=== PATIENT | male | born 1985 | race Caucasian/White ===

== ENCOUNTER 2016-05-02 09:58 | Inpatient (IN) | payer MEDICARE, MEDICAID ==
[2016-05-02 12:25] LABS: Albumin 3.5 g/dL (3.2-5.2); BUN/Creatinine Ratio 5.5 (8-20); Calcium 9.3 mg/dL (8.6-10.3); EGFR African American 7.5 (>60); EGFR Non-African American 5.8 (>60); Globulin 3.4 g/dL (2-4); Potassium 4.7 mmol/L (3.5-5.0); Total Bilirubin 0.4 mg/dL (0.2-1.0); Total Protein 6.9 g/dL (6.4-8.9)
[2016-05-02] MEDS ORDERED: fentaNYL* 50 MCG/ML 2 ML VIAL (100 MCG VIAL) IV SLOW PU ONE (12:25)
[2016-05-02] MEDS ORDERED: Dexamethasone IV* 10 MG in NS 0.9% 50 ML* 50 ML IVPB ONE (12:26)
[2016-05-02] MEDS ORDERED: Aspirin TAB* 325 MG PO ONE (12:26)
[2016-05-02 12:28] LABS: Troponin I 0.02 ng/mL (<0.04)
[2016-05-02 12:43] LABS: C Reactive Protein 83.25 mg/L (< 5.00)
[2016-05-02] MEDS ORDERED: Pantoprazole IV* 40 MG IV ONE (12:47)
[2016-05-02] MEDS ORDERED: Misoprostol TAB* 100 MCG PO ONE (12:49)
[2016-05-02 12:55] LABS: Hematocrit 29 % (42-52); Hemoglobin 9.5 g/dl (14.0-18.0); Mean Corpuscular HGB Conc 33 g/dl (31-36); Mean Corpuscular Hemoglobin 37 pg (27-31); Mean Platelet Volume 8 um3 (7.4-10.4); Red Blood Count 2.59 10^6/ul (4.0-5.4); Red Cell Distribution Width 19 % (10.5-15); White Blood Count 13.2 10^3/ul (3.5-10.8)
[2016-05-02 12:56] LABS: Mean Corpuscular Volume 111 fL (80-94)
[2016-05-02 12:58] LABS: Add Diff/Slide Review? Slide Review Added
--- NOTE | 2016-05-02 12:58 | RAD ---
INDICATION: Difficulty breathing COMPARISON: None. TECHNIQUE: Single AP portable view of the chest was obtained. FINDINGS: Image quality is compromised due to the relative inferiority of a portable chest x-ray. There is density of securing the left lower lung and left hemidiaphragm. There is probable mild cardiomegaly, although evaluation of the heart is limited due to the density at the left lung base. The right lung and left upper lung appear to be otherwise adequately aerated. Visualized bones are normal for the patient's age. IMPRESSION: Density at the left lung base could represent pleural effusion and/or left lower lobe consolidation.
[2016-05-02] MEDS: Colchicine* 0.6 MG TAB PO SCH ×2 (13:15→20:23)
[2016-05-02] MEDS ORDERED: HYDROmorphone INJ* 1 MG/ML CARPUJECT SYRINGE IV SLOW PU PRN (13:18)
[2016-05-02] MEDS ORDERED: Albuterol 2.5 MG/3 ML NEB.SOL* (0.083%) INH PRN (13:18)
[2016-05-02] MEDS ORDERED: Acetaminophen TAB* 325 MG PO PRN (13:18)
[2016-05-02] MEDS ORDERED: Morphine INJ* 10 MG/ML 1 ML CARPUJECT IV ONE (13:35)
[2016-05-02] MEDS ORDERED: Nicotine GUM* 2 MG PO PRN (13:36)
[2016-05-02 13:39] LABS: Erythrocyte Sed Rate 85 mm/Hr (0-14)
[2016-05-02] MEDS ORDERED: Sevelamer TAB* 800 MG PO SCH (14:00)
[2016-05-02 14:05] LABS: Phosphorus 5.8 mg/dL (2.5-5.0)
[2016-05-02] MEDS: Sevelamer TAB* 800 MG PO SCH ×2 (15:47→17:13)
[2016-05-02] MEDS: Dexamethasone TAB* 4 MG PO SCH ×2 (15:48→20:23)
--- NOTE | 2016-05-02 17:14 | CONSULT ---
Consult Consult: Reason for consultation: Lupus, recurrent pleurisy In terms of acute management, Mr. Puri seems to be feeling better and responding to Dexamathasone. If there is no improvement or worsening, consider switching to IV Solumedrol 1mg /kg/d Left lung density: would follow; consider non contrast CT for evaluation if he remains symptomatic. Echo and ECG results noted. He will need a gradual taper of Dexamethasone over the next 2 weeks (he is not tolerant of Prednisone) For correction management: consider switching Cellcept to Plaquenil. This may be the preferred immunomodulating agent in the setting of his dialysis, and may be preferable in terms of side effects as it is not as immunosuppressive as Cellcept (he does seem to have had several upper respiratory infections) I would be interested in reviewing old records. Check complements and DSDNA. Will follow; thanks!
[2016-05-02] MEDS: Metoprolol Tartrate TAB* 100 MG TAB PO SCH (20:22)
[2016-05-02] MEDS ORDERED: Metoprolol Tartrate TAB* 100 MG TAB PO SCH (21:00)
--- NOTE | 2016-05-02 21:30 | ED ---
Natali Ibrahim Claudia, scribed for Rashard Pemberton MD on 05/02/16 at 1206 . Complex/Multi-Sys Presentation - HPI Summary HPI Summary: 31 year old male presents to the ED with SOB. Pt notes the CP and SOB began yesterday am but worsened last night. Pt notes this is the third episode of similar Sx this month. He notes associated Sx as shoulder and neck pain with fever and chills. Pt notes aggravated pain with deep breaths with some alleviation of Sx when he leans forward. Pt denies N/V/D, and cough.Pt reports he went to [facility] twice this past month and for similar Sx where they reported it was due to fluid around the heart. They treated his Sx with steroids which seem to somewhat alleviate his Sx. However, the pt notes that he is unable to take pretnisone and was unable to take the Rx given to him and therefore had to take small dosages of steroids he had from a previous visit, thereby bringing on the Sx again. Pt notes that these Sx resemble the same Sx he had when seen at [facility] in [place]. Pt denies any PMHx of Cardiac Disease but admits to a PMHx of renal disease (since June 2012), and lupus. Dr. adair- tableau administrator - History Of Current Complaint Chief Complaint: EDShortnessOfBreath Time Seen by Provider: 05/02/16 12:01 Hx Obtained From: Patient Associated Signs And Symptoms: Positive: SOB, Chest Pain, Fever - Allergies/Home Medications Allergies/Adverse Reactions: Allergies Allergy/AdvReac Type Severity Reaction Status Date / Time Hydralazine Allergy Shortness Verified 05/02/16 10:00 of Breath Prednisone Allergy Hallucinati Verified 05/02/16 10:01 ons Home Medications: Home Medications Albuterol 2.5MG/3ML (0.083%)* [Ventolin 2.5 MG/3 ML NEB.KASHIF*] 2.5 mg INH Q6H PRN 05/02/16 [History Confirmed 05/02/16] Cholecalciferol TAB* [Vitamin D TAB*] 5,000 units PO DAILY 05/02/16 [History Confirmed 05/02/16] Citalopram TAB* [CeleXA TAB*] 40 mg PO DAILY 05/02/16 [History Confirmed ] Cyanocobalamin TAB* [Vitamin B12 TAB*] 500 mcg PO DAILY 05/02/16 [History Confirmed 05/02/16] Fluticasone NASAL SPRAY 50MCG* [Flonase NASAL SPRAY 50MCG*] 50 mcg BOTH NARES DAILY 05/02/16 [History Confirmed 05/02/16] Lansoprazole [Prevacid] 30 mg PO DAILY 05/02/16 [History Confirmed 05/02/16] Metoprolol Tartrate TAB* [Lopressor TAB*] 100 mg PO BID 05/02/16 [History Confirmed 05/02/16] Mycophenolate Mofetil CAP(*) [Cellcept CAP(*)] 1,000 mg PO DAILY 05/02/16 [ History Confirmed 05/02/16] amLODIPine TAB* [Norvasc TAB*] 5 mg PO DAILY 05/02/16 [History Confirmed ] PMH/Surg Hx/FS Hx/Imm Hx Previously Healthy: Yes Infectious Disease History: No Infectious Disease History: Denies: Traveled Outside the [place] in Last 30 Days - Family History Known Family History: Positive: Hypertension, Diabetes - Social History Lives: With Family Alcohol Use: None Substance Use Type: Reports: None Smoking Status (MU): Unknown if Ever Smoked Review of Systems Positive: Fever, Chills Eyes: Negative ENT: Negative Positive: Chest Pain Positive: Shortness Of Breath Gastrointestinal: Negative Genitourinary: Negative Positive: Other - bilateral shoulder pain and neck pain Skin: Negative Neurological: Negative Psychological: Normal All Other Systems Reviewed And Are Negative: Yes Physical Exam Triage Information Reviewed: Yes Vital Signs On Initial Exam: Initial Vitals Temp Pulse Resp BP Pulse Ox 100.4 F 88 16 128/73 100 05/02/16 10:05/02/16 10:05/02/16 10:05/02/16 10:05/02/16 10:01 Vital Signs Reviewed: Yes Appearance: Positive: Well-Appearing - comfortable, plesant, alert Eyes: Positive: EOMI, ZACHARY ENT: Positive: Other - moist mucosa Neck: Positive: Supple, Other: - no JVD Respiratory/Lung Sounds: Positive: Clear to Auscultation, Breath Sounds Present , Other - breath sounds dimished on the left, no rales or rhonchi on the right. Negative: Rales, Wheezes Cardiovascular: Positive: RRR, S1, S2. Negative: Murmur, Rub Abdomen Description: Positive: Nontender, Soft Musculoskeletal: Positive: Other - calf soft, no calf tenderness. Negative: Edema Left, Edema Right Neurological: Positive: Alert, Oriented to Person Place, Time Psychiatric: Positive: Other - logic, coherent - [place] Coma Scale Coma Scale Total: 15 Procedures - Procedure Summary Procedure Summary: Bedside Echocardiogram: Displays E point to septal separation with mitral valve essentially coapting the septum which suggests good EF. There is concentric thickening of the LV. No significant RV dilation. A pericardial effusion is seen. With diastole there is no septal movement blocking the outflow track. Tamponade is not suggested. Diagnostics - Vital Signs Vital Signs Temp Pulse Resp BP Pulse Ox 05/02/16 11:31 82 16 118/82 97 05/02/16 10:01 100.4 F 88 16 128/73 100 - Laboratory Lab Results: Lab Results 05/02/16 05/02/16 05/02/16 Range/Units 11:14 11:14 11:14 WBC 13.2 H (3.5-10.8) 10^3/ul RBC 2.59 L (4.0-5.4) 10^6/ul Hgb 9.5 L (14.0-18.0) g/dl Hct 29 L (42-52) % MCV 111 H (80-94) fL MCH 37 H (27-31) pg MCHC 33 (31-36) g/dl RDW 19 H (10.5-15) % Plt Count 608 H (150-450) 10^3/ul MPV 8 (7.4-10.4) um3 Neut % (Auto) 75.8 (38-83) % Lymph % (Auto) 11.2 L (25-47) % Motley % (Auto) 10.3 H (1-9) % Eos % (Auto) 2.1 (0-6) % Baso % (Auto) 0.6 (0-2) % Absolute Neuts (auto) 10.0 H (1.5-7.7) 10^3/ul Absolute Lymphs (auto) 1.5 (1.0-4.8) 10^3/ul Absolute Monos (auto) 1.4 H (0-0.8) 10^3/ul Absolute Eos (auto) 0.3 (0-0.6) 10^3/ul Absolute Basos (auto) 0.1 (0-0.2) 10^3/ul Absolute Nucleated RBC 0.02 10^3/ul Nucleated RBC % 0.1 ESR 85 H (0-14) mm/Hr INR (Anticoag Therapy) 1.06 (0.89-1.11) Sodium 132 L (133-145) mmol/L Potassium 4.7 (3.5-5.0) mmol/L Chloride 91 L (101-111) mmol/L Carbon Dioxide 30 (22-32) mmol/L Anion Gap 11 (2-11) mmol/L BUN 57 H (6-24) mg/dL Creatinine 10.28 H (0.67-1.17) mg/dL Est GFR ( Amer) 7.5 (>60) Est GFR (Non-Af Amer) 5.8 (>60) BUN/Creatinine Ratio 5.5 L (8-20) Glucose 103 H (70-100) mg/dL Lactic Acid (0.5-2.0) mmol/L Calcium 9.3 (8.6-10.3) mg/dL Phosphorus 5.8 H (2.5-5.0) mg/dL Total Bilirubin 0.40 (0.2-1.0) mg/dL AST 9 L (13-39) U/L ALT 7 (7-52) U/L Alkaline Phosphatase 44 (34-104) U/L Troponin I 0.02 (<0.04) ng/mL C-Reactive Protein 83.25 H (< 5.00) mg/L B-Natriuretic Peptide ( - 100) pg/mL Total Protein 6.9 (6.4-8.9) g/dL Albumin 3.5 (3.2-5.2) g/dL Globulin 3.4 (2-4) g/dL Albumin/Globulin Ratio 1.0 (1-3) 05/02/16 05/02/16 Range/Units 11:14 11:14 WBC (3.5-10.8) 10^3/ul RBC (4.0-5.4) 10^6/ul Hgb (14.0-18.0) g/dl Hct (42-52) % MCV (80-94) fL MCH (27-31) pg MCHC (31-36) g/dl RDW (10.5-15) % Plt Count (150-450) 10^3/ul MPV (7.4-10.4) um3 Neut % (Auto) (38-83) % Lymph % (Auto) (25-47) % Motley % (Auto) (1-9) % Eos % (Auto) (0-6) % Baso % (Auto) (0-2) % Absolute Neuts (auto) (1.5-7.7) 10^3/ul Absolute Lymphs (auto) (1.0-4.8) 10^3/ul Absolute Monos (auto) (0-0.8) 10^3/ul Absolute Eos (auto) (0-0.6) 10^3/ul Absolute Basos (auto) (0-0.2) 10^3/ul Absolute Nucleated RBC 10^3/ul Nucleated RBC % ESR (0-14) mm/Hr INR (Anticoag Therapy) (0.89-1.11) Sodium (133-145) mmol/L Potassium (3.5-5.0) mmol/L Chloride (101-111) mmol/L Carbon Dioxide (22-32) mmol/L Anion Gap (2-11) mmol/L BUN (6-24) mg/dL Creatinine (0.67-1.17) mg/dL Est GFR ( Amer) (>60) Est GFR (Non-Af Amer) (>60) BUN/Creatinine Ratio (8-20) Glucose (70-100) mg/dL Lactic Acid 1.0 (0.5-2.0) mmol/L Calcium (8.6-10.3) mg/dL Phosphorus (2.5-5.0) mg/dL Total Bilirubin (0.2-1.0) mg/dL AST (13-39) U/L ALT (7-52) U/L Alkaline Phosphatase (34-104) U/L Troponin I (<0.04) ng/mL C-Reactive Protein (< 5.00) mg/L B-Natriuretic Peptide 340 H ( - 100) pg/mL Total Protein (6.4-8.9) g/dL Albumin (3.2-5.2) g/dL Globulin (2-4) g/dL Albumin/Globulin Ratio (1-3) Result Diagrams: 05/02/16 11:14 05/02/16 11:14 Lab Statement: Any lab studies that have been ordered have been reviewed, and results considered in the medical decision making process. - Radiology CHEST XRAY Xray Interpretation: Positive (See Comments) - DENSITY AT THE LEFT LUNG BASE COULD REPRESENT PLEURAL EFFUSION AND/OR LEFT LOVER LOBE CONSOLIDATION. Radiology Interpretation Completed By: Radiologist - EKG 10:44 Cardiac Rate: NL EKG Rhythm: Sinus Rhythm - 85 beats/min Complex Multi-Symp Course/Dx Assessment/Plan: This is his third episode of pericarditis this time he has pericardial effusion and pleural effusion and fever and no evidence of tamponade or severe distress. He will be admitted; the hospitalist, Dr. Arango and Dr. Adair all on board. - Diagnoses Provider Diagnoses: PERICARDITIS, Pericardial effusion, Pleural effusion - Physician Notifications Discussed Care Of Patient With: Dsicussed care of patient with Dr. Arango whom will consult with the patient and agrees for hospitalist admit to [facility]. He also advises the pt to begin coltrazine. Dr. Arango agrres with thr pain for aspirin and steriods. Discussed care of patient with Dr. Adair(12:44) whom recommends starting the patient on GI protect, protonis and cytotech. Dr. Storey accepts patient for admission to [facility]. Time Discussed With Above Provider: 12:30 Discharge - Discharge Plan Condition: Stable Disposition: ADMITTED TO [facility] The documentation as recorded by the Natali mcmillan Claudia accurately reflects the service I personally performed and the decisions made by , Rashard Pemberton MD.
--- NOTE | 2016-05-02 23:37 | CONS ---
CARDIOLOGY CONSULTATION: DATE OF CONSULT: 05/02/16 REASON FOR CONSULTATION: Pericardial effusion. CHIEF COMPLAINT: Pleuritic chest pain and orthopnea. HISTORY OF PRESENT ILLNESS: The patient is a 31-year-old gentleman who has recently moved to the [facility] with a longstanding history of lupus. The exam was performed in the presence of his sister and [id number] and the sister provided the bulk of the history. The patient's old medical records from outside institutions were not available to me at the time of this dictation. The patient has not been able to afford his medications for lupus. He has had bronchitis symptoms approximately 4 or 5 weeks ago and subsequently developed pleuritic chest pain that was relieved only if he sat way forward with his arms in front of him such as on a table. He was seen in the [place] ER, given steroids with relief. When these tapered off and the pain recurred, he was seen again, given prednisone, which he does not tolerate (psychosis), it turns out he has leftover steroids from the prior visit (this raises concerns about compliance). finished those but his symptoms recurred and he presented to the emergency room today. The patient also notes he feels feverish. He denies headaches, coughing, or productive sputum, earaches. He denies diarrhea, constipation, or dysuria. He does not think he is infected anywhere else. PAST MEDICAL HISTORY: The patient has a past medical history of lupus and pleural pericarditis from [place] and renal insufficiency. OUTPATIENT MEDICATIONS: Include: 1. Norvasc 10 mg a day. 2. Metoprolol 200 mg a day. 3. Celexa 20 mg a day. 4. Prevacid 30 mg a day. 5. Vitamin D. 6. Vitamin B12. 7. Flonase 50 mg a day. 8. Albuterol inhaler. 9. CellCept 1000 a day. 10. Renvela (not taking). ALLERGIES: He is allergic or intolerant to PREDNISONE and HYDRALAZINE. FAMILY HISTORY: Father and mother history of diabetes. SOCIAL HISTORY: The patient smokes about a pack a week. Denies alcohol abuse. Supportive sister in the [place] area. He is on Medicare, but has no prescription coverage which has led to medication noncompliance. REVIEW OF SYSTEMS: See history of present illness. All other review of systems unremarkable. PHYSICAL EXAM: On exam, the patient is an ill-appearing young man. He is lying about 45 degrees, appears uncomfortable and skin color suggests chronic illness, psychologically pleasant, cooperative, but answers in brief sentences or words. Neurologically awake, alert and oriented to person, place and time. Cranial nerves II through XII intact. Grossly normal sensory and motor function in the upper and lower extremities based on exam in the ER [facility]. Skin: Pale. Complexion is off, but no cyanosis. HEENT: Pupils are equal and round. Mucous membranes are moist. Neck without appreciable increased JVP. Breath sounds were diminished in the bases bilaterally and throughout the lung diaz. No wheezing or rales appreciated. Coronary: Distant heart sounds. S1 , S2 regular. I did not hear a rub. Abdomen: Active bowel sounds. Soft and nontender. Lower extremities are free of edema and warmth. DIAGNOSTIC STUDIES/LAB DATA: The patient's chest x-ray shows cardiomegaly and the left lower lobe is obscured suggestive of a left pleural effusion. The patient's 12-lead ECG today shows normal sinus rhythm, 85 beats a minute. QRS axis +30. Normal AV and IV conduction. Somewhat flattened T-waves in the lateral leads I, aVL and V6. No significant ST elevation or depression appreciated. Bedside echo done by the ER physician per verbal report showed pleural and pericardial effusions, but no evidence of tamponade. Labs: Sodium 132, potassium 4.7, chloride 91, CO2 30, BUN 57, creatinine 10.28 , glucose 103. ALT of 7. Troponin 0.02. C-reactive protein 83.25. BNP of 340. White count 13.2, hemoglobin 9.5, hematocrit 29, platelets 608. ESR pending. INR 1.06. IMPRESSION: In summary, Jose Enrique Puri is a 31-year-old gentleman with a longstanding history of lupus with secondary renal insufficiency presenting with pleuritic and positional chest pain secondary to pleural pericarditis. The pleural pericarditis could be secondary to lupus alone, but more likely a combination of the two. Jose Enrique has not been tried on nonsteroidals due to his renal insufficiency, but had responded to glucocorticoid with rebound coming off. I recommend resuming glucocorticoids, but adding colchicine with a very slow taper of both. I am leaving the colchicine on several weeks longer than the steroids. Additionally, it looks like due to the financial issues, he has not been compliant with his lupus medications and being as aggressive as possible with medication for lupus in addition to glucocorticoids will be important in getting a durable control and resolution of the pleural pericardial effusions. The Hospitalists have already contacted public health social worker and partner integration planner which are going to be important for compliance. An echocardiogram has been ordered and we will review and Rheumatology consultation has been ordered which I agree with. The patient's renal insufficiency could additionally have a contribution, additional recommendations will be made pending his response to the above measures and additional studies. I will leave it to Internal Medicine and Rheumatology to decide if there is any potential benefit in tapping along for diagnostic and/or therapeutic benefit. [id number]/CPS #: [id number] DARRELL
--- NOTE | 2016-05-03 00:18 | HP ---
HISTORY AND PHYSICAL: DATE OF ADMISSION: 05/02/16 PRIMARY CARE PROVIDER: None. ATTENDING PHYSICIAN WHILE IN THE HOSPITAL: Leo Storey MD *(report dictated by Dallas Carlin NP). CHIEF COMPLAINT: 1. Neck pain. 2. Chest pain. 3. Dyspnea on exertion. CONSULTING CREDIT CONTROL ADMINISTRATOR: Dr. Arango. CONSULTING SIDE FRAMER: Dr. Flores. CONSULTING TIMBER FRAMER: Dr. Baugh. HISTORY OF PRESENT ILLNESS: Mr. Puri is a 31-year-old male patient. He has a history of lupus, kidney cancer, status post nephrectomy, end-stage renal disease, and history of recurrent pericarditis and hypertension. He comes in today stating that the middle of March, he developed URI type symptoms. He was having runny nose, cough. He was bringing up some sputum. He was diagnosed at [facility] with bronchitis and admitted. He recovered from this; but in the beginning of April, he started noticing that he was having dyspnea on exertion, chest discomfort, worse with a deep breath. He was having pain in both of his shoulders. He went back to the ER at [facility] and was treated for presumed pericarditis. The patient was started on steroids. He was doing initially well. When the steroids finished, the patient became worse again. He started having recurrence of symptoms. He went back to [facility], was admitted, put on steroids, again got better, was discharged on 04/23/16. He had some leftover steroids from a previous episode. He says the steroid started with a D and he was taking that because he was discharged home on prednisone which he says makes him feel suicidal and psychotic, so he did not take that. He took presumably dexamethasone, was better up to 3 days ago when the steroids that ran out, he started having discomfort again mostly in both his shoulders area and the neck, worse with deep breath. It was positional. He says the pain was a sharp stabbing pain. It just was not getting any better , so he decided to come to the [facility] today for evaluation. PAST MEDICAL HISTORY: Significant for: 1. Lupus. 2. Renal carcinoma. 3. End-stage renal disease, on dialysis. 4. Pericarditis. 5. Hypertension. PAST SURGICAL HISTORY: 1. He has had a nephrectomy. 2. Hernia repair. 3. Splenectomy. 4. Fistula placement. HOME MEDICATIONS: According the patient's phone include: 1. Mycophenolate 1000 mg daily. 2. Norvasc 10 mg daily, but he has recently reduced this down to 5 mg a day. 3. Metoprolol, he takes 200 mg p.o. daily. 4. Celexa 40 mg p.o. daily. 5. Prilosec 30 mg daily. 6. Vitamin D3 5000 units daily. 7. Vitamin B12 500 mcg daily. 8. Flonase 50 mcg 1 spray both nares daily. 9. Albuterol 1 nebulizer every 4 to 6 hours as needed. 10. Renvela 800 mg t.i.d. with meals, although he says he has not been taking this medication. ALLERGIES TO MEDICATIONS: Include: 1. HYDRALAZINE. 2. PREDNISONE, which causes psychosis with suicidal ideation. FAMILY HISTORY: Both his parents were diabetics. SOCIAL HISTORY: He does smoke a pack of cigarettes a week. He has been smoking since the age of 13. He says last drink of alcohol was about a month ago and he does not have a healthcare proxy currently. REVIEW OF SYSTEMS: There is no documented fever. He does admit to having chills. Denies any significant weight change. There was no double vision. There is no ear discharge. He denies any rhinorrhea. He currently denies any sore throat. There is chest pain per my HPI. There was dyspnea on exertion, but no orthopnea. No nocturnal dyspnea. There is no abdominal pain. No nausea , no vomiting. No dysuria, no frequency. No loss of consciousness, no pruritus , no skin ulcerations. Review of 14 systems completed, all others negative. PHYSICAL EXAMINATION GENERAL: Mr. Puri is a 31-year-old male patient. He appears to be chronically ill-appearing. He is sitting in the ER stretcher. He does not appear to be in any acute distress. VITAL SIGNS: Blood pressure 109/62 with a pulse of 82, respirations 16, O2 sat 99%, temperature was 100.4 temporally. HEENT: Head: Atraumatic, normocephalic. Eyes: EOMs are intact. Sclerae anicteric and not pale. Throat: Oral mucosa appears to be moist. No oropharyngeal erythema. NECK: Supple. LUNGS: Diminished on the left side. He had equal diaphragmatic expansion. HEART: Sounds S1, S2. There was no rub heard. ABDOMEN: Soft, flat, nontender. Bowel sounds present. EXTREMITIES: Pulses were 2+ throughout. He has a fistula noted to the left upper extremity with positive thrill and bruit. He has 5/5 strength. NEUROLOGIC: The patient is awake, alert, and oriented x3. Tongue midline. Mill Order Scheduler were equal. No gross focal deficits. SKIN: Grossly intact. LABORATORY DATA AND DIAGNOSTIC STUDIES: Labs today revealed WBC of 13.2, RBC of 2.59, hemoglobin 9.5, hematocrit 29, platelet count of 608. INR 1.06. Sodium is 132, potassium 4.7, chloride 91, CO2 30, BUN 57, creatinine 10.28, glucose 103. Lactic 1.0. Calcium 9.3, total bilirubin 0.4, AST 9, ALT 7. Alkaline phosphatase 44. Troponin is 0.02. BNP of 340. Albumin of 3.5. He had a chest x-ray obtained today which when I reviewed, I do appreciate what appears to be a left-sided pleural effusion. Radiology reads this as density of the left lung base could represent pleural effusion and/or left lower lobe consolidation. He did have an EKG obtained today as well. No previous for comparison, but did show a sinus rhythm with a rate of 85. He had no ST elevations or T-wave inversion. There is no previous for comparison and appeared to be normal axis. Old medical records were reviewed. ASSESSMENT AND PLAN: Mr. Puri is a 31-year-old male patient who comes into the ER today with complaints of shoulder discomfort bilaterally, dyspnea on exertion, and positional chest pain. On evaluation here today, it appears he has a left-sided pleural effusion and recently diagnosed pericarditis and becoming worse now in the setting of being off steroids. He will be admitted under inpatient status for: 1. Pericarditis with left pleural effusion. I suspect this is probably reactive secondary to the bronchitis that he had about a month ago and initially lupus is also probably playing a role. Plan at this point he is hemodynamically stable, just to go ahead and start him on colchicine b.i.d., aspirin every day, full aspirin, in addition to this steroid. I did touch base with Dr. Baugh. The plan is to go ahead and try him on dexamethasone 4 mg p.o. t.i.d. I am trying to get records from [facility] to see what he was taking previously and we will try to replicate this again and give him a slow taper over several weeks with both the prednisone and the colchicine and get him in close followup with Dr. Baugh. We will get an echo and in addition to this, we will place him on telemetry and we will continue to monitor. 2. Leukocytosis with low-grade fever. Again, this could just be related to the lupus and the fact that he has this pericarditis. We are going to monitor him. He has been pancultured. I am holding antibiotics at this point as he is hemodynamically stable. If he does spike a fever of greater than 101, I would probably put him on broad-spectrum antibiotics. 3. Lupus. We will continue his CellCept and we will go ahead and get Dr. Baugh's input. 4. End-stage renal disease and history of renal carcinoma. I am going to go ahead and put him back on his Renvela. In addition to this, I will continue his medications prescribed and the dialysis as prescribed. 5. Lupus. Again, continue CellCept. Dr. Baugh will follow. 6. Hypertension. Continue his Norvasc and metoprolol with hold parameters. 7. DVT prophylaxis. He is moderate risk and will be placed on SCDs. 8. Fluid, electrolytes, and nutrition. He will get a renal diet. 9. Code status: He is a full code. 10. Social issues. The patient at this point is having trouble obtaining medications due to cost. He has no prescription covered. I did place a Social Work consult to help with acquire Medicaid for this patient. TIME SPENT: Time spent on the admission 60 minutes, greater than half the time was spent [id number] with the patient obtaining my history and physical, other half the time spent going over the plan of care with the patient and implementing plan of care. I did discuss the case with Dr. Storey, he is in agreement. DALLAS CARLIN NP CC: Dr. Flores; Dr. Arango; Dr. Baugh* [id number]/[facility] #: [id number] [facility]ITALAbiel
--- NOTE | 2016-05-03 02:05 | CONS ---
CONSULTATION REPORT: DATE OF CONSULT: 05/02/16 CONSULTING PHYSICIANS: Dr. Rashard Pemberton, Dr. Arango, Dr. Flores, Dr. Storey. REASON FOR CONSULT: Lupus flare. HISTORY OF PRESENT ILLNESS: The patient is a pleasant 31-year-old male who has a longstanding history of lupus. Prior records have been requested. So most of the following history was obtained primarily from the patient himself. He has had recurrent episodes of pleurisy, which has been attributed to his underlying lupus. In terms of his more recent symptoms, he had noted sharp onset of shortness of breath and chest pain which began the day prior to admission, but worsened overnight. He has had several episodes of these in the past and it does appear that he has also had episodes of bronchitis and upper respiratory infections over the last couple of months. He has been seeing Dr. Flores recently for end-stage renal disease as a complication of his lupus and he is on dialysis, which he has been on since at least 2013. Indeed, he started dialysis in June of 2012. Despite being on dialysis, he has continued on CellCept. In terms of his underlying longstanding lupus history, he actually did notice symptoms beginning back when he was around 8 years old. He had complications including hematologic abnormalities, which required a splenectomy. At one point of time, he was on both Naprosyn as well as Plaquenil in the very remote past, but it seems that his lupus was under control for several years and these medications were stopped. 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 Per history, he tried several course IV Cytoxan to preserve his kidneys but did not tolerate this well. He has tolerated dialysis well; however he has noted recently recurrent episodes of steroid responsive pleurisy; recently he noted discomfort in his chest and upper neck and shoulder muscles with taking deep breath with some alleviation when he leans forward. He denied any nausea or vomiting or diarrhea , although he has had some GI symptoms with CellCept in the past, and he has denied an acute cough or productive sputum. He has been to [facility] at least twice over the past month for similar symptoms and it appears that it was felt to be related to fluid around the heart or pericardial effusion. He was treated with Solu-Medrol which helped to alleviate his symptoms somewhat. In terms of his longstanding steroid use, however, he has not been able to tolerate prednisone from the psychiatric perspective as he has 2 suicide prior attempts on this medication. He, however, did have some leftover dexamethasone a couple of days ago which he had been given for symptoms of bronchitis. He tolerated this well, although it made him jittery. He has not, however, been on dexamethasone over the last couple of days. He notes that the symptoms were similar to prior symptoms of pleurisy that he has had in the past at [facility]. As noted above, he has a longstanding history of renal disease. His hotel security officer is Dr. Flores. PAST MEDICAL HISTORY: Include end-stage renal disease as well as a history of lupus. Past medical history is also notable for end-stage renal disease and hypertension as well as depression. PAST SURGICAL HISTORY: Dialysis graft placement. CURRENT MEDICATIONS: 1. He is on acetaminophen as needed. 2. Albuterol as needed. 3. Ventolin as needed. 4. Amlodipine. 5. Aspirin. 6. Citalopram 40 mg daily. 7. Colchicine 0.6 mg. 8. Dexamethasone 4 mg t.i.d. 9. Hydromorphone as needed. 10. Metoprolol 100 mg b.i.d. 11. Mycophenolate 1000 mg daily. 12. Nicotine gum. 13. He has been given morphine and fentanyl earlier for pain. ALLERGIES: Current allergies include HYDRALAZINE as well as PREDNISONE. FAMILY HISTORY: Notable for hypertension as well as diabetes. SOCIAL HISTORY: He does not smoke. Does not drink any alcohol. He has not been able to work on a regular basis because of his underlying symptoms of lupus as well as complications of end-stage renal disease requiring dialysis. He has had a transfer several times because of these underlying issues as well. He has not seen a business assistant in the recent past and does not recall the name of his prior business assistant. No substance abuse. He lives with a supportive family. No alcohol use. REVIEW OF SYSTEMS: Generally, notable for subjective fever and chills. Eyes: Negative for dry eyes or dry mouth. ENT: Negative for sores in the mouth and nose. Cardiac: Notable for chest wall pain, not reproducible, worse with taking a deep breath and inhalation as noted above. Pulmonary: As noted above. No productive sputum. Musculoskeletal: He does have chronic arthralgias, but no definite joint swelling. He notes that when tries to do yoga at times, he has discomfort in the left lower extremity including the hips and knees. More recently with the onset of the pleurisy, he has had bilateral shoulder and neck pain. Skin is negative for rash. Neurologic: Negative for any focal weakness. He does have mild numbness and tingling around the dialysis graft site. Psychological: Denies suicidal ideations or depression. He has had some jitteriness a little bit with taking dexamethasone in the past, but otherwise has tolerated it well and he notes that it has helped his symptoms. He noted that "My overall outlook on life is very good but when I am on Prednisone that goes out the window." Endocrine: No glandular swelling. Hematologic: As noted above. : No blood in the urine or stool. Other 14- point review of systems was reviewed and was otherwise negative. Immunologic history as noted, he has not had any travel outside the [place] in the last 30 days. PHYSICAL EXAM: Vital Signs: Temperature in the ER was 100.4, pulse of 88, respiratory rate of 16 to 17, blood pressure 128/73, pulse ox 100%, now 97%. In general, he is pleasant, lying supine during the interview, but was able to easily sit up and follow commands, and he was otherwise alert. He was in no acute distress. Eyes: Extraocular movements were intact. Pupils equal, round , and reactive to light and accommodate. Skin: Notable for graft site on the left side in his upper extremity, which appeared to be in place with no surrounding erythema. ENT: Moist mucous membranes. No ulcers. Neck: Supple. Vascular: No JVD distention. Respiratory: Clear to auscultation. Bilateral breath sounds equal, but slightly diminished on the left, but no rales or rhonchi on the right. No wheezes. Cardiovascular: Notable for a 2/6 systolic murmur at the right lower border radiating to the left lower border. I did not appreciate any rub. No evidence of pulsus paradoxus. Normal S1 and S2. Abdomen: Soft, nontender, nondistended. No organomegaly. No hepatosplenomegaly. Musculoskeletal: There is no synovitis. There is no warmth of the joints. There is no tenderness. There is no edema. Neurologic: Alert and oriented to person, place, and time. No focal weakness. Psychiatric: Logical, coherent, no acute distress. Endocrine: No glandular swelling. : No CVA tenderness. Lymph: No adenopathy. DIAGNOSTIC STUDIES/LAB DATA: He had a bedside echo showing septal separation with mitral valve and ejection fraction with concentric thickening of the LV systolically, no significant RV dilatation, pericardial effusion is heard with diastole if there is no septal movement suggesting a barking of the outflow tract. He had a white count of 13.2, hemoglobin of 9.5, platelet count of 608, 000. BUN 57, creatinine 10.28. Otherwise, he had a chest x-ray showing a density at the left lung base, which could represent a pleural effusion and/or left lower lobe consolidation. ASSESSMENT: Mr. Puri is a 31-year-old man with a longstanding history of lupus complicated by end-stage renal disease with recurrent episodes of pleurisy , now with the chest x-ray showing a density in the left lower lung base. At this point in time, he certainly has symptoms which would be consistent with pleurisy/ serositis from longstanding lupus which can occasionally remain active even after dialysis. To evaluate further, I would check complements as he does have anemia and leukocytosis. I would also check a double-stranded DNA and follow his inflammatory markers, although his sed rate could be also elevated for many other reasons including dialysis. In terms of his underlying acute flare of lupus, he is currently on dexamethasone and he states that he has been feeling better since this morning. However, if he has worsening symptoms, potentially pleurisy from lupus could also be treated with Solu- Medrol which he has also received in the past. However, he appears to be clinically overall improving on dexamethasone alone. If he does continue to tolerate this (Dexamathasone) and there is clinical improvement, consider tapering dexamethasone down to 4 mg daily over the next 1 to 2 weeks; consider remaining on baseline low dose steroid regimen in light of recurrent symptoms. In terms of long- term management of his lupus, I would consider switching the CellCept to Plaquenil. He seems to have had increasing infections with bronchitis and upper respiratory infections over the last year. It is possible the Plaquenil may do even a better job in the setting of dialysis for controlling his underlying lupus without the potential immunosuppressive side effects. He should of course continue dialysis. Advised against any kind of active or passive smoke exposure. In terms of the density of the left lung, would follow up for clinical improvement, consider a noncontrast CT to evaluate it further especially if he remains symptomatic, would also be interested in reviewing prior records which I understand have been requested. It does not appear that he has seen a business assistant in the recent past. In light of his underlying longstanding use of CellCept, which increases the risks for viral infection, I will also check a CMV titer. TIME SPENT: Time spent with the patient was greater than 65 minutes with greater than 50% of the time spent counseling the patient. [id number]/[facility] #: [id number] DARRELL
[2016-05-03 05:21] LABS: Hematocrit 28 % (42-52); Hemoglobin 9.2 g/dl (14.0-18.0); Mean Corpuscular HGB Conc 33 g/dl (31-36); Mean Corpuscular Hemoglobin 37 pg (27-31); Mean Platelet Volume 8 um3 (7.4-10.4); Red Blood Count 2.47 10^6/ul (4.0-5.4); Red Cell Distribution Width 19 % (10.5-15); White Blood Count 19.8 10^3/ul (3.5-10.8)
[2016-05-03 05:25] LABS: Comments Flag Yes; Mean Corpuscular Volume 112 fL (80-94)
[2016-05-03 05:28] LABS: BUN/Creatinine Ratio 6.2 (8-20); C Reactive Protein 129.22 mg/L (< 5.00); Calcium 9.2 mg/dL (8.6-10.3); EGFR African American 6.3 (>60); EGFR Non-African American 4.9 (>60)
[2016-05-03] MEDS: Metoprolol Tartrate TAB* 100 MG TAB PO SCH ×2 (08:57→20:39)
[2016-05-03] MEDS: Sevelamer TAB* 800 MG PO SCH ×3 (08:57→17:33)
[2016-05-03] MEDS: Citalopram TAB* 40 MG PO SCH (08:58)
[2016-05-03] MEDS: Aspirin EC TAB* 325 MG PO SCH (08:58)
[2016-05-03] MEDS: amLODIPine TAB* 5 MG PO SCH (08:58)
[2016-05-03] MEDS: Dexamethasone TAB* 4 MG PO SCH ×2 (08:58→20:41)
[2016-05-03] MEDS: Colchicine* 0.6 MG TAB PO SCH ×3 (08:59→20:39)
[2016-05-03] MEDS: Mycophenolate Mofetil CAP(*) 250 MG PO SCH (09:00)
[2016-05-03] MEDS ORDERED: amLODIPine TAB* 5 MG PO SCH (09:00)
--- NOTE | 2016-05-03 09:57 | ECHO ---
Patient: ANGIE KAPOOR [facility] Rec#: [id number] : 1985 Date: 05/03/2016 Age: 31y Height: 172.72 cm / 68.0 in Weight: 77.56 kg / 170.9 lbs Sex: M BSA: 1.91 Room#: 452 Admit Date#: 05/02/2016 Type: Inpatient Referring: Rashard Pemberton MD Reading: Gricelda Arango MD [employer] Room Attendant: Nolvia Martin BETZY CC: Charanjit Pacheco MD CC: Charanjit Flores MD Transthoracic Echocardiogram Indication: Pericardial Effusion BP: 135/60 HR: 70 Rhythm: NSR Findings History: Lupus,kidney cancer,hemodialysis,smoker. Technical Comments: The study quality is good. Completed at 0817. Left Ventricle: The left ventricular chamber size is normal. Moderate to severe concentric left ventricular hypertrophy is observed. Global left ventricular wall motion and contractility are within normal limits. There is normal left ventricular systolic function. The estimated ejection fraction is 55-60%. Normal left ventricular diastolic filling is observed. Left Atrium: The left atrium is mildly dilated. Right Ventricle: The right ventricular cavity size is normal. The right ventricular global systolic function is normal. Right Atrium: The right atrium is mildly dilated. Aortic Valve: The aortic valve is trileaflet. Mild aortic cusp sclerosis is present. There is no evidence of aortic regurgitation. There is no evidence of aortic stenosis. Mitral Valve: The mitral valve leaflets are mildly thickened. There is mild mitral regurgitation. There is no evidence of mitral stenosis. Tricuspid Valve: The tricuspid valve leaflets are normal. There is trace tricuspid regurgitation. Unable to estimate the right ventricular systolic pressure. There is no tricuspid stenosis. Pulmonic Valve: The pulmonic valve appears normal. There is no evidence of pulmonic regurgitation. There is no pulmonic stenosis. Pericardium: A pericardial effusion is visualized.mild to moderate in size: ant MIRIAM 0.5-1.2,post MIRIAM 1.3-1.5;post SAX 1.1-1.6;A4C @ LV 1.8-2.3,@RA 1.3-1.8;A3C@ LV 0.9-1.2,subcostal SAX 2.0-2.4,4C@LV2.5. There are no signs of significant hemodynamic compromise.Change of 7% MV LVOT , and 9% TV change with respiration. There is a circumferential pericardial effusion. The pericardial effusion is fluid filled.with some fibrous stranding noted. A left pleural effusion is present. There is a moderate pleural effusion. Aorta: There is no dilatation of the ascending aorta. There is no dilatation of the aortic arch. There is no dilation of the aortic root. Pulmonary Artery: The main pulmonary artery appears normal. Venous: The inferior vena cava is dilated. There is a greater than 50% respiratory change in the inferior vena cava dimension. Conclusions Moderate to severe concentric left ventricular hypertrophy. The estimated ejection fraction is 55-60%. The right ventricular global systolic function is normal. Mild aortic valve sclerosis is present. There is mild mitral regurgitation. A pericardial effusion is visualized.mild to moderate in size. The pericardial effusion is fluid filled.with some fibrous stranding noted. There are no signs of significant hemodynamic compromise. There is a moderate pleural effusion. No prior echo available to compare. Measurements Name Value Normal Range RVIDd (AP) 2D 3.3 cm (0.9 - 2.6) RVDdMajor (2D) 3.8 cm (2.2 - 4.4) RAd ISD 4CH 5.5 cm (3.4 - 4.9) RA (A4C)W 4.8 cm (2.9 - 4.6) IVSd (2D) 2.1 cm (0.6 - 1) LVPWd (2D) 1.6 cm (0.6 - 1) LVIDd (2D) 4.8 cm (3.6 - 5.4) LVIDs (2D) 3.6 cm - LV FS (2D) 25 % (25 - 45) Aortic Annulus 2.4 cm (1.4 - 2.6) Ao root diameter (2D) 3.5 cm (2.1 - 3.5) Ascending Ao 3.4 cm (2.1 - 3.4) Aortic arch 2.1 cm (1.8 - 3.4) Descending Ao 1.3 cm - LA dimension (AP) 2D 4.2 cm (2.3 - 3.8) LAd ISD 4CH 6 cm (2.9 - 5.3) LA ISD 4CH W 4.3 cm (2.5 - 4.5) Name Value Normal Range LA ESV SP 4CH (A/L) 82 ml - LA ESV SP 2CH (A/L) 106 ml - LA ESV BP (A/L) 103 ml - LA ESV BP (A/L) index 53.67 ml/m2 - LA ESV SP 4CH (MOD) 76 ml - LA ESV SP 2CH (MOD) 98 ml - Name Value Normal Range MV E-wave Vmax 1.1 m/sec - MV deceleration time 230 msec - MV A-wave Vmax 0.8 m/sec - MV E:A ratio 1.43 ratio - LV septal e' Vmax 0.08 m/sec - LV lateral e' Vmax 0.09 m/sec - LV E:e' septal ratio 13.75 ratio - LV E:e' lateral ratio 12.22 ratio - Name Value Normal Range AV Vmax 1.8 m/sec - AV VTI 41.6 cm - AV peak gradient 12.65 mmHg - AV mean gradient 7.85 mmHg - LVOT Vmax 1.4 m/sec - LVOT VTI 31.6 cm - LVOT peak gradient 7.47 mmHg - LVOT mean gradient 4.06 mmHg - Name Value Normal Range IVC diameter 2.3 cm - Name Value Normal Range PV Vmax 0.8 m/sec - PV peak gradient 2.59 mmHg -
--- NOTE | 2016-05-03 11:36 | PN ---
Subjective - Subjective History: Problems: Pleuropericarditis. Lupus Nephritis End stage renal disease. Leukocytosis, elevated CRP Assess) Overall Mr. Puri is clinically improving. Shoulder and chest pain is improving. As he has had increased anxiety on steroids, I advise decreasing Dexamethasone to twice daily. Continue Colchicine per cardiology. Await CMV titers. Consider changing Cellcept to Plaquenil for overall lupus control; I will wait on results of complement titers and DSDNA first, however. He may be able to go home soon if he continues to improve. Smoking cessation encouraged. Follow CRP level, which seems to be rising despite overall clinical improvement. Current Medications: Current Medications Acetaminophen (Tylenol Tab*) 650 mg PO Q4H PRN PRN Reason: FEVER/PAIN Albuterol (Ventolin 2.5 Mg/3 Ml Neb.Kashif*) 2.5 mg INH Q2H PRN PRN Reason: SOB/WHEEZING Amlodipine Besylate (Norvasc Tab*) 5 mg PO DAILY [facility] Last Admin: 05/03/16 08:58 Dose: 5 mg Aspirin (Ecotrin Ec Tab*) 325 mg PO DAILY [facility] Last Admin: 05/03/16 08:58 Dose: 325 mg Citalopram Hydrobromide (Celexa Tab*) 40 mg PO DAILY [facility] Last Admin: 05/03/16 08:58 Dose: 40 mg Colchicine (Colcrys*) 0.6 mg PO BID [facility] Last Admin: 05/03/16 08:59 Dose: 0.6 mg Dexamethasone (Decadron Tab*) 4 mg PO TID [facility] Last Admin: 05/03/16 08:58 Dose: 4 mg Hydromorphone HCl (Dilaudid Iv*) 1 mg IV SLOW PU Q4H PRN PRN Reason: PAIN Last Admin: 05/02/16 20:37 Dose: 1 mg Metoprolol Tartrate (Lopressor Tab*) 100 mg PO BID [facility] Last Admin: 05/03/16 08:57 Dose: 100 mg Mycophenolate Mofetil (Cellcept Cap(*)) 1,000 mg PO DAILY [facility] Last Admin: 05/03/16 09:00 Dose: 1,000 mg Nicotine Polacrilex (Nicotine Gum*) 2 mg PO Q2H PRN PRN Reason: CRAVING Sevelamer Carbonate (Renvela Tab*) 800 mg PO AC [facility] Last Admin: 05/03/16 08:57 Dose: 800 mg - Review of Systems Constitutional Symptoms: No: Weight Gain, Weight Loss, Fever Dermatology: Normal: Yes HEENT: Yes Normal Eyes: Positive: Normal Thyroid: Positive: Normal Pulmonary: Positive: Normal Cardiology: Positive: Normal Gastroenterology: Positive: Normal Genital - Urinary: Positive: Normal Endocrinology: Positive: Normal Hematologic/Lymphatic: Positive: Anemia Neurology: Positive: Normal Psychiatry: Positive: Anxiety Home Medications: Home Medications Medication Instructions Recorded Confirmed Type Albuterol 2.5MG/3ML (0.083%)* 2.5 mg INH Q6H PRN 05/02/16 05/02/16 History [Ventolin 2.5 MG/3 ML NEB.KASHIF*] Cholecalciferol TAB* [Vitamin D 5,000 units PO DAILY 05/02/16 05/02/16 History TAB*] Citalopram TAB* [CeleXA TAB*] 40 mg PO DAILY 05/02/16 05/02/16 History Cyanocobalamin TAB* [Vitamin B12 500 mcg PO DAILY 05/02/16 05/02/16 History TAB*] Fluticasone NASAL SPRAY 50MCG* 50 mcg BOTH NARES DAILY 05/02/16 05/02/16 History [Flonase NASAL SPRAY 50MCG*] Lansoprazole [Prevacid] 30 mg PO DAILY 05/02/16 05/02/16 History Metoprolol Tartrate TAB* 100 mg PO BID 05/02/16 05/02/16 History [Lopressor TAB*] Mycophenolate Mofetil CAP(*) 1,000 mg PO DAILY 05/02/16 05/02/16 History [Cellcept CAP(*)] amLODIPine TAB* [Norvasc TAB*] 5 mg PO DAILY 05/02/16 05/02/16 History Allergies: Allergies Allergy/AdvReac Type Severity Reaction Status Date / Time Hydralazine Allergy Shortness Verified 05/02/16 10:00 of Breath Prednisone Allergy Hallucinati Verified 05/02/16 10:01 ons Objective - Vital Signs Vital Signs: Vital Signs 05/02/16 05/02/16 05/02/16 13:56 15:35 16:00 Temperature 99.4 F Pulse Rate 86 88 Respiratory 16 18 18 Rate Blood Pressure 130/74 147/73 (mmHg) O2 Sat by Pulse 98 94 Oximetry 05/02/16 05/02/16 05/02/16 16:51 17:17 19:50 Temperature 98.4 F Pulse Rate 80 Respiratory 18 18 16 Rate Blood Pressure 114/48 (mmHg) O2 Sat by Pulse 95 Oximetry 05/02/16 05/02/16 05/02/16 20:00 20:37 21:37 Temperature Pulse Rate Respiratory 18 17 17 Rate Blood Pressure (mmHg) O2 Sat by Pulse Oximetry 05/03/16 05/03/16 05/03/16 00:36 02:57 05:01 Temperature 98.1 F 97.8 F Pulse Rate 82 83 71 Respiratory 16 20 16 Rate Blood Pressure 133/56 135/60 (mmHg) O2 Sat by Pulse 95 93 94 Oximetry 05/03/16 05/03/16 07:40 08:46 Temperature 98.3 F Pulse Rate 70 74 Respiratory 18 14 Rate Blood Pressure 132/63 (mmHg) O2 Sat by Pulse 94 98 Oximetry - Intake and Output Intake and Output: Intake & Output 05/01/16 05/02/16 05/03/16 05/04/16 06:59 06:59 06:59 06:59 Intake Total 940 200 Output Total 850 Balance 90 200 Weight 167 lb 8 oz Intake: Oral 940 200 Output: Urine 850 Other: # Bowel Movements 0 ADLs: Meal Record Start: 05/02/16 14: 14 Freq: DAILY@0900,1400,1800 Status: Active Created 05/02/16 14:14 System (Rec: 05/02/16 14:14 System [email or web address]) Document 05/02/16 18:00 [id number] (Rec: 05/02/16 20:22 [id number] [email or web address]) Document 05/03/16 09:20 [id number] (Rec: 05/03/16 09:20 [id number] [email or web address]) ADLs: Meal Record Start: 05/02/16 16: 51 Freq: DAILY@0900,1400,1800 Status: Inactive Created 05/02/16 16:51 [id number] (Rec: 05/02/16 16:51 [id number] [id number]) Intake and Output Start: 05/02/16 10: 10 Freq: Status: Active Created 05/02/16 10:10 System (Rec: 05/02/16 10:10 System [id number]) Intake and Output Start: 05/02/16 14: 14 Freq: DAILY@0600,1400,2200 Status: Active Created 05/02/16 14:14 System (Rec: 05/02/16 14:14 System [email or web address]) Document 05/02/16 22:00 [id number] (Rec: 05/02/16 22:22 [id number] [email or web address]) Document 05/03/16 04:58 [id number] (Rec: 05/03/16 04:58 [id number] [email or web address]) Intake and Output Start: 05/02/16 16: 51 Freq: DAILY@0600,1400,2200 Status: Inactive Created 05/02/16 16:51 [id number] (Rec: 05/02/16 16:51 [id number] [id number]) - Physical Exam General Physical Exam Comment: No distress. Ambulating without discomfort. Eye Exam: bilateral: PERRLA, EOMI Head: Yes Normocephalic Ear Exam: bilateral ear: Normal Throat/Oropharyx Exam: Bilateral: Normal Thyroid Function: Clinically Euthyroid Lungs and Chest: Yes: Chest Expansion Full, Chest Expansion Symetrica, Percussion Note Resonant Heart Rate and Rhythm: Normal JVP: Not Elevated Warren Beat: Non Displaced Additional Cardiovascular: Yes: Warren Beat not Displaced, Normal Heart Sounds Abdominal Exam: Yes: Soft - Rheumotological System Joints: Range of Motion - Extremities Posterior Tibial Pulse: Bilateral Normal - Dialysis graft in place in upper extremity Hematology: No Supraclavicular Adenopathy Limbs: Normal Power, Normal Tone - Neuro Orientation: A/O x3 Psychiatric: Anxious Speech: Normal Results - Results Lab Results: Laboratory Results - last 24 hr 05/03/16 05/03/16 04:56 04:56 WBC 19.8 H RBC 2.47 L Hgb 9.2 L Hct 28 L MCV 112 H MCH 37 H MCHC 33 RDW 19 H Plt Count 579 H MPV 8 Neut % (Auto) 90.8 H Lymph % (Auto) 3.4 L Bonner % (Auto) 5.3 Eos % (Auto) 0 Baso % (Auto) 0.5 Absolute Neuts (auto) 17.9 H Absolute Lymphs (auto) 0.7 L Absolute Monos (auto) 1.0 H Absolute Eos (auto) 0 Absolute Basos (auto) 0.1 Absolute Nucleated RBC 0 Nucleated RBC % 0 Sodium 130 L Potassium 5.0 Chloride 92 L Carbon Dioxide 22 Anion Gap 16 H BUN 74 H Creatinine 12.02 H Est GFR ( Amer) 6.3 Est GFR (Non-Af Amer) 4.9 BUN/Creatinine Ratio 6.2 L Glucose 140 H Calcium 9.2 C-Reactive Protein 129.22 H Assessment - Problem List Plan: Pleuropericarditis. Lupus Nephritis End stage renal disease. Leukocytosis, elevated CRP Assess) Overall Mr. Puri is clinically improving. Shoulder and chest pain is improving. As he has had increased anxiety on steroids, I advise decreasing Dexamethasone to twice daily. Continue Colchicine per cardiology. Await CMV titers. Consider changing Cellcept to Plaquenil for overall lupus control; I will wait on results of complement titers and DSDNA first, however. He may be able to go home soon if he continues to improve. Smoking cessation encouraged. Follow CRP level, which seems to be rising despite overall clinical improvement.
--- NOTE | 2016-05-03 13:43 | PN ---
Subjective Date of Service: 05/03/16 - CC: CP and SOB. Interval History: CP and dyspnea much improved, still mild left shoulder pain lying flat and some pleuritic discomfort and coughing. ROS: no diarrhea (on Colchicine), infact he feels he is constipated from pain meds. Medications Active Medications: Acetaminophen (Tylenol Tab*) 650 mg PO Q4H PRN PRN Reason: FEVER/PAIN Albuterol (Ventolin 2.5 Mg/3 Ml Neb.Eva*) 2.5 mg INH Q2H PRN PRN Reason: SOB/WHEEZING Amlodipine Besylate (Norvasc Tab*) 5 mg PO DAILY [facility] Last Admin: 05/03/16 08:58 Dose: 5 mg Aspirin (Ecotrin Ec Tab*) 325 mg PO DAILY [facility] Last Admin: 05/03/16 08:58 Dose: 325 mg Citalopram Hydrobromide (Celexa Tab*) 40 mg PO DAILY [facility] Last Admin: 05/03/16 08:58 Dose: 40 mg Colchicine (Colcrys*) 0.6 mg PO BID [facility] Last Admin: 05/03/16 08:59 Dose: 0.6 mg Dexamethasone (Decadron Tab*) 4 mg PO BID [facility] Hydromorphone HCl (Dilaudid Iv*) 1 mg IV SLOW PU Q4H PRN PRN Reason: PAIN Last Admin: 05/02/16 20:37 Dose: 1 mg Metoprolol Tartrate (Lopressor Tab*) 100 mg PO BID [facility] Last Admin: 05/03/16 08:57 Dose: 100 mg Mycophenolate Mofetil (Cellcept Cap(*)) 1,000 mg PO DAILY [facility] Last Admin: 05/03/16 09:00 Dose: 1,000 mg Nicotine Polacrilex (Nicotine Gum*) 2 mg PO Q2H PRN PRN Reason: CRAVING Sevelamer Carbonate (Renvela Tab*) 800 mg PO AC [facility] Last Admin: 05/03/16 12:43 Dose: Not Given Objective Vital Signs: Temp Pulse Resp BP Pulse Ox 98.3 F 74 14 132/63 98 05/03/16 07:40 05/03/16 08:46 05/03/16 08:46 05/03/16 07:40 05/03/16 08:46 Oxygen Devices in Use Now: None Appearance: young man, lying flat, appears comfortable. Pleasant. Eyes: PERRLA Ears/Nose/Mouth/Throat: Clear Oropharnyx, Mucous Membranes Moist Neck: Trachea Midline Respiratory: - - Diminshed BS 1/3 of left base, dull to percussion, coughing with inspiration. Cardiovascular: RRR - diastolic murmer heard (vs soft single component rub). Abdominal: NL Sounds; No Tenderness; No Distention, No Hepatosplenomegaly Extremities: No Edema, No Clubbing, Cyanosis Skin: No Rash or Ulcers Neurological: Alert and Oriented x 3, NL Muscle Strength and Tone Lines/Tubes/Other Access: Clean, Dry and Intact Peripheral IV Laboratory Results: 05/03/16 04:56 05/03/16 04:56 INR (Anticoag Therapy) 1.06 (0.89-1.11) 05/02/16 11:14 Total Bilirubin 0.40 mg/dL (0.2-1.0) 05/02/16 11:14 AST 9 U/L (13-39) L 05/02/16 11:14 ALT 7 U/L (7-52) 05/02/16 11:14 Alkaline Phosphatase 44 U/L (34-104) 05/02/16 11:14 B-Natriuretic Peptide 340 pg/mL (-100) H 05/02/16 11:14 Total Protein 6.9 g/dL (6.4-8.9) 05/02/16 11:14 Albumin 3.5 g/dL (3.2-5.2) 05/02/16 11:14 Globulin 3.4 g/dL (2-4) 05/02/16 11:14 Albumin/Globulin Ratio 1.0 (1-3) 05/02/16 11:14 Diagnostic Imaging: ECHO: LVH, EF 55%, mild to moderate PC effusion, no evidence of filling compromise, stranding seen, good valve function and good RV function. EKG Data: Monitor: Sinus rhythm. Assessment/Plan 31 yo young man with SLE and secondary renal insufficiency presenting with recurrent pleuro pericarditis. The patient has clinically improved with resumption of steroids and addition of colchicine. Echo confirms effusions, no evidence of tampanade/filling compromise. Can be discharged on both of these with slow taper, I would plan on leaving colchicine on 2-6 weeks [address] steroid taper[address] Dr. Baugh's notes reviewed. Increase in ESR, BUN and Cr noted. The patient should follow up with cardiology 1-3 weeks post discharge for follow up office visit and echo ([phone]) in addition to f/u with Rheumatology.
[2016-05-03] MEDS ORDERED: Epoetin Alfa* 3,000 UNITS/ML VIAL IV ONE (16:00)
[2016-05-03] MEDS ORDERED: Calcium Carbonate CHEW TAB* 500 MG (TUMS) PO ONE (16:58)
[2016-05-03] MEDS ORDERED: diPHENhydraMINE PO* 25 MG PO PRN (19:07)
[2016-05-03] MEDS ORDERED: oxyCODONE/Acetamin 5/325 MG* TAB PO PRN (19:07)
--- NOTE | 2016-05-03 19:12 | PN ---
Subjective Date of Service: 05/03/16 Interval History: . Saw patient after dialysis Recurrent pain - not severe Also tired "wiped out" Wants to stay until AM - I agreed Will try benadryl for insomnia and Percocet for pain. likely dc at 9 AM. Family History: Unchanged from Admission Social History: Unchanged from Admission Past Medical History: Unchanged from Admission Objective Active Medications: . Acetaminophen (Tylenol Tab*) 650 mg PO Q4H PRN PRN Reason: FEVER/PAIN Last Admin: 05/03/16 18:52 Dose: 650 mg Albuterol (Ventolin 2.5 Mg/3 Ml Neb.Eva*) 2.5 mg INH Q2H PRN PRN Reason: SOB/WHEEZING Amlodipine Besylate (Norvasc Tab*) 5 mg PO DAILY [facility] Last Admin: 05/03/16 08:58 Dose: 5 mg Aspirin (Ecotrin Ec Tab*) 325 mg PO DAILY [facility] Last Admin: 05/03/16 08:58 Dose: 325 mg Citalopram Hydrobromide (Celexa Tab*) 40 mg PO DAILY [facility] Last Admin: 05/03/16 08:58 Dose: 40 mg Colchicine (Colcrys*) 0.6 mg PO BID [facility] Last Admin: 05/03/16 08:59 Dose: 0.6 mg Dexamethasone (Decadron Tab*) 4 mg PO BID [facility] Diphenhydramine HCl (Benadryl Po*) 25 mg PO BEDTIME PRN PRN Reason: INSOMNIA Hydromorphone HCl (Dilaudid Iv*) 1 mg IV SLOW PU Q4H PRN PRN Reason: PAIN Last Admin: 05/02/16 20:37 Dose: 1 mg Metoprolol Tartrate (Lopressor Tab*) 100 mg PO BID [facility] Last Admin: 05/03/16 08:57 Dose: 100 mg Mycophenolate Mofetil (Cellcept Cap(*)) 1,000 mg PO DAILY [facility] Last Admin: 05/03/16 09:00 Dose: 1,000 mg Nicotine Polacrilex (Nicotine Gum*) 2 mg PO Q2H PRN PRN Reason: CRAVING Oxycodone/Acetaminophen (Percocet 5/325 Tab*) 1 tab PO Q4H PRN PRN Reason: PAIN Sevelamer Carbonate (Renvela Tab*) 800 mg PO AC [facility] Last Admin: 05/03/16 17:33 Dose: 800 mg . Vital Signs 05/02/16 05/02/16 05/02/16 19:50 20:00 20:37 Temperature 98.4 F Pulse Rate 80 Respiratory 16 18 17 Rate Blood Pressure 114/48 (mmHg) O2 Sat by Pulse 95 Oximetry 05/02/16 05/03/16 05/03/16 21:37 00:36 02:57 Temperature 98.1 F Pulse Rate 82 83 Respiratory 17 16 20 Rate Blood Pressure 133/56 (mmHg) O2 Sat by Pulse 95 93 Oximetry Oxygen Devices in Use Now: None Appearance: NAD - young man in NAD at this time. Ears/Nose/Mouth/Throat: NL Teeth, Lips, Gums Neck: NL Appearance and Movements; NL JVP Respiratory: Symmetrical Chest Expansion and Respiratory Effort Cardiovascular: NL Sounds; No Murmurs; No JVD Abdominal: NL Sounds; No Tenderness; No Distention Lymphatic: No Cervical Adenopathy Extremities: No Edema Skin: No Rash or Ulcers Lines/Tubes/Other Access: Clean, Dry and Intact Peripheral IV, Clean, Dry and Intact Other Access - HD C/D/I Result Diagrams: 05/03/16 04:56 05/03/16 04:56 Additional Lab and Data: . Microbiology and Other Data: Microbiology 05/02/16 14:35 Nasal Screen MRSA (PCR)([facility]) - Final Nasal Mrsa Negative Assess/Plan/Problems-Billing . Assessment: 31 yo man with SLE - pericarditis and pericardial/pleural effusion - now on steroids / colchicine with no ECHO evidence for tamponade. tired after HD dc in AM on current regimen.
[2016-05-04] MEDS: Aspirin EC TAB* 325 MG PO SCH (07:51)
[2016-05-04] MEDS: Mycophenolate Mofetil CAP(*) 250 MG PO SCH (07:51)
[2016-05-04] MEDS: Metoprolol Tartrate TAB* 100 MG TAB PO SCH (07:52)
[2016-05-04] MEDS: amLODIPine TAB* 5 MG PO SCH (07:52)
[2016-05-04] MEDS: Dexamethasone TAB* 4 MG PO SCH (07:52)
[2016-05-04] MEDS: Citalopram TAB* 40 MG PO SCH (07:52)
[2016-05-04] MEDS: Sevelamer TAB* 800 MG PO SCH (07:52)
[2016-05-04] MEDS: Colchicine* 0.6 MG TAB PO SCH (07:52)
[2016-05-04 08:01] VITALS: BP 127/61
--- NOTE | 2016-05-04 09:32 | PN ---
Hospitalist Progress Note . HOSPITALIST DISCHARGE NOTE: See dc instructions and summary by me. Patient stable for dc dc instructions reviewed with the patient at the bedside. DC patient home today.
--- NOTE | 2016-05-05 08:21 | DS ---
CC: Dr. Charanjit Flores; Dr. Charanjit Baugh, [facility] Rheumatology. DISCHARGE SUMMARY: DATE OF ADMISSION: 05/02/16 DATE OF DISCHARGE: 05/04/16 PRIMARY CARE PROVIDER: None. OUTPATIENT PHP DEVELOPER: Dr. Charanjit Flores. EMERGENCY DEPARTMENT RN: Dr. Charanjit Baugh. PRINCIPAL DISCHARGE DIAGNOSIS: Pericarditis with pericardial effusion, noncompressive, as well as left pleural effusion. SECONDARY DIAGNOSES: 1. Systemic lupus erythematosus. 2. Renal carcinoma, status post nephrectomy with end stage renal disease - on hemodialysis. 3. Recurrent pericarditis. 4. Hypertension. DISCHARGE MEDICATION REGIMEN: 1. Percocet 5/325 mg tabs, one or two tablets every 4 to 6 hours as needed for pain - 30 prescribed. 2. Colchicine 0.6 mg by mouth twice daily - 30 prescribed. 3. Dexamethasone 4 mg by mouth twice daily - 30 tabs prescribed. A five-day supply of the above medications were given in addition to those prescriptions. Continue: 1. Mycophenolate 1000 mg by mouth daily. 2. Norvasc 10 mg by mouth daily - recently reduced to 5 mg daily. 3. Metoprolol 200 mg by mouth daily. 4. Celexa 40 mg by mouth daily. 5. Prilosec 30 mg by mouth daily. 6. Vitamin D3 5000 units by mouth daily. 7. Vitamin B12 500 mcg by mouth daily. 8. Flonase 50 mcg one spray both nares daily. 9. Albuterol nebulizer one treatment every 4-6 hours as needed for shortness of breath. 10. Renvela 800 mg by mouth 3 times daily with meals - occasionally has been skipping, encouraged to comply. HISTORY OF PRESENT ILLNESS AND HOSPITAL COURSE: Please see the H and P by nurse practitioner Rogerio Carlin under the supervision of Dr. Gianluca Storey. In brief, Mr. Puri is a 31-year-old male patient with a history of systemic lupus erythematosus, kidney cancer status post nephrectomy and now end-stage renal disease on hemodialysis with recurrent pericarditis and hypertension who complains of a URI that started in March with runny nose and cough with sputum production and general malaise. The patient was diagnosed at [facility] with bronchitis and admitted. The patient had pleuritic chest pain that radiated to both of his shoulders. He came back to the emergency room at [facility] and was treated for presumed pericarditis with steroids. He was originally doing well, then became worse with recurrent symptoms. He was admitted again, recovered again, and then discharged on April 23, 2016. The patient had some leftover prednisone which he states makes him feel suicidal and psychotic so he did not want to take that. The patient took dexamethasone up to 3 days ago, but the steroids ran out and he started having discomfort again characteristic of the pericarditis with pain radiating to his shoulders and neck, worse with inspiration. This was certainly positional, characteristic of pericarditis, and the patient was admitted for pericarditis and reevaluation. The patient was placed on the hospitalist service and he was evaluated by Cardiology. He underwent a transthoracic echocardiogram which showed the pericardial effusion. It was [id number] in size. There was no hemodynamic compromise. There was also a left pleural effusion noted. The patient was started on colchicine therapy at 0.6 mg by mouth twice daily. This has been prescribed in the outpatient setting. He was restarted on steroids, specifically 4 mg dexamethasone twice daily. There will be a much slower taper this time. The patient was seen by Dr. Charanjit Baugh in consultation. He made some specific recommendations and directed some diagnostic studied including CMV titers. He recommended considering changing CellCept to Plaquenil for overall lupus control, but was waiting on the results of complement titers and double-stranded DNA first. He acknowledged the patient would go home soon and then he would see him in the outpatient setting. Smoking cessation was encouraged and the patient is still smoking intermittently. The patient is being discharged on May 04, 2016 in good condition. He has responded well to the anti-inflammatory regimen. He also used Benadryl for sleep, and insomnia has been a problem for him so he can use that intermittently over-the- counter. The patient will see Dr. Flores in conjunction with dialysis. I will ask the hospitalist traffic administrator to arrange a followup with Dr. Charanjit Baugh in the next 2 to 3 weeks, and followup can be made on the lab work and his lupus control. TIME SPENT: Total time taken to discharge Mr. Puri was 45 minutes, greater than half the time was spent going over the discharge instructions [id number] with the patient. CONDITION ON DISCHARGE: Stable. [id number]/[facility] #: [id number] [facility]
[2016-05-05 12:15] LABS: Complement C3 98 mg/dL (75 - 175); Immunoglobulin G 1100 mg/dL (767 - 1590)
[2016-05-05 12:20] LABS: Immunoglobulin M 23 mg/dL (37 - 286)
[2016-05-05 16:01] LABS: Phospholipid Ab IgG < 4.0 GPL; Phospholipid Ab IgM, S < 4.0 MPL
== END 2016-05-04 12:10 | disposition home or self-care (01) | DRG 314 ==
LOC: ED 09:58 → MEDTELE 13:10
PROVIDERS: ADMIT Internal Medicine; ATTEND Internal Medicine
PROC: 5A1D00Z (ICD-10-PCS; principal; 2016-05-03)
DX: I30.9 Acute pericarditis, unspecified (principal); N18.6 End stage renal disease; J90 Pleural effusion, not elsewhere classified; M32.9 Systemic lupus erythematosus, unspecified; I12.0 Hypertensive chronic kidney disease with stage 5 chronic kidney disease or end stage renal disease; F17.210 Nicotine dependence, cigarettes, uncomplicated; D72.829 Elevated white blood cell count, unspecified; Z99.2 Dependence on renal dialysis; Z79.899 Other long term (current) drug therapy; Z88.8 Allergy status to other drugs, medicaments and biological substances; Z83.3 Family history of diabetes mellitus; Z79.1 Long term (current) use of non-steroidal anti-inflammatories (NSAID); Z82.49 Family history of ischemic heart disease and other diseases of the circulatory system; Z85.53 Personal history of malignant neoplasm of renal pelvis
CPT/HCPCS: 36415; 71010; 80048; 80053; 82784; 83605; 83880; 84100; 84484; 85025; 85610; 85652; 86140; 86147; 86160; 86225; 86644; 86645; 87040; 87641; 90935; 93005; 93306; 99406; A9270-GY; G0257; J0885; J1100; J1170; J2270; J3010; J8540; S0191

== ENCOUNTER 2016-05-16 21:16 | Inpatient (IN) | payer MEDICARE, MEDICAID ==
[2016-05-16 22:15] LABS: Albumin 3.7 g/dL (3.2-5.2); BUN/Creatinine Ratio 9.4 (8-20); Calcium 8.8 mg/dL (8.6-10.3); Total Bilirubin 0.3 mg/dL (0.2-1.0); Total Protein 6.7 g/dL (6.4-8.9)
[2016-05-16 22:20] LABS: Potassium 6.9 mmol/L (3.5-5.0); Troponin I 0.04 ng/mL (<0.04)
[2016-05-16] MEDS ORDERED: Insulin REGULAR(*) 1 UNITS UNIT IV PUSH ONE (22:21)
[2016-05-16] MEDS ORDERED: Dextrose 50% VIAL 50 ml IV ONE (22:21)
[2016-05-16] MEDS ORDERED: Calcium Gluconate INJ* 1 GM in NS 0.9% 100 ML* 100 ML IVPB ONE (22:21)
[2016-05-16] MEDS ORDERED: CALCIUM GLUCONATE* 1 GM/10 ML VIAL (in Pyxis) ONE (22:23)
--- NOTE | 2016-05-16 22:24 | RAD ---
INDICATION: Short of breath COMPARISON: May 11, 2016 TECHNIQUE: An AP portable view obtained at 2210 hours is submitted. FINDINGS: Bones/Soft Tissues: There are no acute bony findings. There are external pacer pads Cardiomediastinal: The cardiac silhouette is prominent. Lungs: There is limited evaluation of the left lung base due to the size of the cardiac silhouette. There does appear to be mildly improved aeration. Pleura: There are no pleural effusions. Other: None IMPRESSION: Enlarged cardiac silhouette. Mild improved aeration left base.
[2016-05-16 22:25] LABS: Hematocrit 29 % (42-52); Hemoglobin 9.3 g/dl (14.0-18.0); Mean Corpuscular HGB Conc 32 g/dl (31-36); Mean Corpuscular Hemoglobin 35 pg (27-31); Mean Corpuscular Volume 109 fL (80-94); Mean Platelet Volume 9 um3 (7.4-10.4); Red Blood Count 2.67 10^6/ul (4.0-5.4); Red Cell Distribution Width 20 % (10.5-15); White Blood Count 14.5 10^3/ul (3.5-10.8)
[2016-05-16] MEDS ORDERED: Dextrose 50% Syringe 50 ML* 25 GM/50 ML SYRINGE ONE (22:34)
[2016-05-16 22:48] LABS: TSH (Thyroid Stimulating Horm) 1.49 mcIU/mL (0.34-5.60)
[2016-05-17] MEDS ORDERED: Albuterol 2.5 MG/3 ML NEB.SOL* (0.083%) INH PRN (01:04)
[2016-05-17] MEDS: HYDROmorphone INJ* 1 MG/ML CARPUJECT SYRINGE IV SLOW PU PRN ×3 (04:21→19:46)
--- NOTE | 2016-05-17 04:32 | HP ---
HISTORY AND PHYSICAL: DATE OF ADMISSION: 05/17/16 CHIEF COMPLAINT: Shortness of breath. HISTORY OF PRESENT ILLNESS: The patient is a 31-year-old gentleman, recently discharged with pericarditis from this hospital. He stated he started feeling shortness of breath yesterday. Initially it started with pain in his left shoulder after dialysis. However, he was able to go bed after that and woke up with more shortness of breath and seem to happen at the slightest exertion. He also had some occasional left-sided chest pain. He felt like his heart was not beating fast, but actually was not beating enough. He had no nausea, vomiting, and no diaphoresis. He did have dialysis yesterday. He also notes he just switched from CellCept to Plaquenil. In the ED, the patient was evaluated and he was found to have a third- degree heart block, which is new. He was also hyperkalemic with a potassium of 6.9. PAST MEDICAL HISTORY: Significant for recent diagnosis of pericarditis, lupus, renal cell carcinoma, end-stage renal disease, on dialysis, and hypertension. PAST SURGICAL HISTORY: Significant for nephrectomy, hernia repair, splenectomy , and fistula placement. MEDICATIONS: Current medications are: 1. Plaquenil, unknown dose, just recently started. 2. Citalopram 40 mg daily. 3. Cholecalciferol 5000 units daily. 4. Albuterol inhaler every 6 hours as needed. 5. Flonase 50 mcg both nares daily. 6. Vitamin B12 at 500 mcg daily. 7. Metoprolol tartrate 100 mg daily. 8. Prevacid 30 mg daily. 9. Amlodipine 5 mg daily. ALLERGIES: He has an allergy/adverse reaction to HYDRALAZINE and PREDNISONE, which causes psychosis. FAMILY HISTORY: Both parents are diabetics. SOCIAL HISTORY: He smokes about a pack of cigarettes a week, smoking since age 13. He says he drinks occasional alcohol. He does not have a healthcare proxy. REVIEW OF SYSTEMS: A 14-point review of systems was completed with the patient. All pertinent positives and negatives are in the history of present illness, otherwise is negative. PHYSICAL EXAMINATION GENERAL: A pleasant gentleman, lying in bed, in no acute distress. VITAL SIGNS: Blood pressure 127/60. Pulse ox 98%. Respiratory rate 18 breaths per minute. Heart rate 40 beats per minute. Temperature 98.6 degrees. HEENT: Normocephalic, atraumatic. Pupils equal, round, and reactive to light. Moist mucous membranes. NECK: Supple. No JVD, bruits, palpable thyroid or lymphadenopathy. CHEST: Clear to auscultation and percussion bilaterally. CARDIOVASCULAR: S1, S2 appreciated. Bradycardic, with a regular rate. ABDOMEN: Positive bowel sounds in all four quadrants. Soft, nontender, and nondistended. No hepatosplenomegaly. EXTREMITIES: No cyanosis, clubbing or edema. +2 peripheral pulses bilaterally. NEUROLOGIC: Alert and oriented x3. Moves all extremities. SKIN: No rashes or abnormalities. DIAGNOSTIC STUDIES/LAB DATA: White count 14.5, hemoglobin 9.3, hematocrit 29, platelets 328. Sodium 136, potassium 6.9, chloride 97, CO2 of 25, BUN 82, creatinine 8.76, glucose 104. Lactic acid 2.3, troponin 0.04. Chest x-ray was interpreted by Radiology as enlarged cardiac silhouette, mild improved aeration of the left base. EKG shows third-degree heart block, ventricular rate of 36 beats per minute. ASSESSMENT/PLAN: 1. Third-degree heart block: It is unclear of the etiology, certainly hyperkalemia maybe a cause, his pericarditis maybe affecting him. He has gotten Kayexalate. He may require dialysis as early as tomorrow. We will repeat his potassium. He has temporary pads on. He is currently asymptomatic. We will place him in the ICU. Cardiology is to see the patient in the a.m. 2. Lupus: Placed on Plaquenil. He also on mycophenolate. 3. Hypertension: Continue amlodipine and metoprolol. 4. Depression: Continue citalopram. 5. Gastroesophageal reflux disease: Continue Prevacid. 6. DVT prophylaxis: None, young and ambulatory. 7. Fluid, electrolytes, nutrition: Renal diet. 8. Code status: The patient is full code. TIME SPENT: Over 75 minutes were spent on this H and P, more than 40 minutes of which were spent in direct [id number] contact with the patient in evaluation, physical exam, and counseling and coordination of care. CC: Dr. Arango; Dr. Flores; Dr. Baugh* [id number]/[facility] #: [id number] [facility]
[2016-05-17 06:19] LABS: Calcium 8.9 mg/dL (8.6-10.3); EGFR African American 8.5 (>60); EGFR Non-African American 6.6 (>60); Potassium 5.4 mmol/L (3.5-5.0)
[2016-05-17] MEDS ORDERED: Dexamethasone TAB* 4 MG PO SCH (09:00)
[2016-05-17] MEDS ORDERED: Hydroxychloroquine TAB* 200 MG PO SCH (09:00)
[2016-05-17] MEDS ORDERED: Metoprolol Tartrate TAB* 100 MG TAB PO SCH (09:00)
[2016-05-17] MEDS: CMCS Pantoprazole TAB (NF) 40 MG TAB PO SCH (09:10)
[2016-05-17] MEDS: Cholecalciferol TAB* 1000 UNITS PO SCH (09:43)
[2016-05-17] MEDS: Citalopram TAB* 40 MG PO SCH (09:43)
[2016-05-17] MEDS: Cyanocobalamin TAB* 500 MCG PO SCH (09:44)
[2016-05-17] MEDS: amLODIPine TAB* 5 MG PO SCH (10:34)
[2016-05-17] MEDS: Fluticasone NASAL SPRAY 50MCG* 16 gm SPRAY BTL BOTH NARES SCH (10:34)
[2016-05-17] MEDS: Sevelamer TAB* 800 MG PO SCH ×2 (10:35→17:53)
[2016-05-17] MEDS: Nicotine GUM* 2 MG PO PRN (10:36)
[2016-05-17] MEDS ORDERED: Heparin DIALYSIS ONLY(*) 1,000 UNITS/ML VIAL DIALYSIS ONE (11:00)
[2016-05-17] MEDS ORDERED: Epoetin Alfa* 10,000 UNITS/ML VIAL IV ONE (11:30)
[2016-05-17 11:42] LABS: C Reactive Protein 37.52 mg/L (< 5.00)
[2016-05-17 11:47] LABS: Troponin I 0.07 ng/mL (<0.04)
--- NOTE | 2016-05-17 11:56 | ED ---
Jasbir Ibrahim Billy, scribed for Bennie Casarez MD on 05/16/16 at 2142 . Palpitations / Dysrhythmia - HPI Summary HPI Summary: Patient is a 31 year-old male coming to [facility] presenting with constant fatigue since yesterday. He states that he has intermittent SOB with exertion and slow HR as well. Patient had hemodialysis treatment yesterday. Recent pericarditis. - History of Current Complaint Chief Complaint: EDDysrhythmPalp Time Seen by Provider: 05/16/16 21:33 Hx Obtained From: Patient Onset/Duration: Gradual Onset, Lasting Days, Still Present Timing: Constant Severity Initially: Moderate Severity Currently: Moderate Character: Slow Aggravating: Exertion Alleviating: Nothing Associated Signs & Symptoms: Shortness of Breath - Allergy/Home Medications Allergies/Adverse Reactions: Allergies Allergy/AdvReac Type Severity Reaction Status Date / Time Hydralazine Allergy Shortness Verified 05/02/16 10:00 of Breath Prednisone Allergy Hallucinati Verified 05/02/16 10:01 ons PMH/Surg Hx/FS Hx/Imm Hx Endocrine/Hematology History: Reports: Hx Systemic Lupus Erythematosus Cardiovascular History: Reports: Hx Hypertension Comment Only: Other Cardiovascular Problems/Disorders - Hx LUPUS Respiratory History: Reports: Hx Asthma, Hx Seasonal Allergies, Other Respiratory Problems/Disorders - Hx pleurisy. History: Reports: Hx Dialysis - MWF, Other Problems/Disorders - Kidney cancer, unilateral nephrectomy Musculoskeletal History: Reports: Other Musculoskeletal History - Lupus: generlized pain Sensory History: Reports: Hx Contacts or Glasses Opthamlomology History: Reports: Hx Contacts or Glasses Psychiatric History: Reports: Hx Anxiety - Cancer History Cancer Type, Location and Year: Kidney cancer, September 2014 in [place]. Hx Chemotherapy: Yes - For lupus. - Surgical History Surgery Procedure, Year, and Place: Nephrectomy, splenectomy, Inguinal hernia repaired, multiple fistula placements. Hx Anesthesia Reactions: No Infectious Disease History: No Infectious Disease History: Denies: Traveled Outside the [place] in Last 30 Days - Family History Known Family History: Positive: Hypertension, Diabetes - Social History Alcohol Use: None Substance Use Type: Reports: None Smoking Status (MU): Unknown if Ever Smoked Type: Cigarettes Amount Used/How Often: 3 cigs per day Length of Time of Smoking/Using Tobacco: 18 years Have You Smoked in the Last Year: Yes Review of Systems Positive: Fatigue Positive: Other - slow HR Positive: Shortness Of Breath All Other Systems Reviewed And Are Negative: Yes Physical Exam Triage Information Reviewed: Yes Vital Signs On Initial Exam: Initial Vitals Temp Pulse Resp BP Pulse Ox 98.6 F 36 18 155/53 100 05/16/16 21:23 05/16/16 21:23 05/16/16 21:23 05/16/16 21:23 05/16/16 21:23 Vital Signs Reviewed: Yes Appearance: Positive: Well-Appearing, No Pain Distress Skin: Positive: Warm, Dry, Pale Head/Face: Positive: Normal Head/Face Inspection Eyes: Positive: Normal ENT: Positive: Normal ENT inspection Neck: Positive: Supple, Nontender Respiratory/Lung Sounds: Positive: Clear to Auscultation, Breath Sounds Present Cardiovascular: Positive: Bradycardia. Negative: Murmur Abdomen Description: Positive: Nontender, Soft Bowel Sounds: Positive: Present Musculoskeletal: Positive: Normal. Negative: Edema Left, Edema Right Neurological: Positive: Normal Psychiatric: Positive: Normal, Affect/Mood Appropriate AVPU Assessment: Alert Diagnostics - Vital Signs Vital Signs Temp Pulse Resp BP Pulse Ox 05/16/16 21:23 98.6 F 36 18 155/53 100 - Laboratory Lab Results: Lab Results 05/16/16 05/16/16 05/16/16 Range/Units 21:40 21:40 21:40 WBC 14.5 H (3.5-10.8) 10^3/ul RBC 2.67 L (4.0-5.4) 10^6/ul Hgb 9.3 L (14.0-18.0) g/dl Hct 29 L (42-52) % MCV 109 H (80-94) fL MCH 35 H (27-31) pg MCHC 32 (31-36) g/dl RDW 20 H (10.5-15) % Plt Count 328 (150-450) 10^3/ul MPV 9 (7.4-10.4) um3 Neut % (Auto) 87.4 H (38-83) % Lymph % (Auto) 6.9 L (25-47) % [place] % (Auto) 5.2 (1-9) % Eos % (Auto) 0.1 (0-6) % Baso % (Auto) 0.4 (0-2) % Absolute Neuts (auto) 12.7 H (1.5-7.7) 10^3/ul Absolute Lymphs (auto) 1.0 (1.0-4.8) 10^3/ul Absolute Monos (auto) 0.7 (0-0.8) 10^3/ul Absolute Eos (auto) 0 (0-0.6) 10^3/ul Absolute Basos (auto) 0.1 (0-0.2) 10^3/ul Absolute Nucleated RBC 0.03 10^3/ul Nucleated RBC % 0.2 Sodium 136 (133-145) mmol/L Potassium 6.9 H* (3.5-5.0) mmol/L Chloride 97 L (101-111) mmol/L Carbon Dioxide 25 (22-32) mmol/L Anion Gap 14 H (2-11) mmol/L BUN 82 H (6-24) mg/dL Creatinine 8.76 H (0.67-1.17) mg/dL Est GFR ( Amer) 9.0 (>60) Est GFR (Non-Af Amer) 7.0 (>60) BUN/Creatinine Ratio 9.4 (8-20) Glucose 104 H (70-100) mg/dL Lactic Acid 2.3 H* (0.5-2.0) mmol/L Calcium 8.8 (8.6-10.3) mg/dL Magnesium 2.0 (1.9-2.7) mg/dL Total Bilirubin 0.30 (0.2-1.0) mg/dL AST 24 (13-39) U/L ALT 27 (7-52) U/L Alkaline Phosphatase 49 (34-104) U/L Troponin I 0.04 H* (<0.04) ng/mL C-React Prot High Sens 41.83 mg/L Total Protein 6.7 (6.4-8.9) g/dL Albumin 3.7 (3.2-5.2) g/dL Globulin 3.0 (2-4) g/dL Albumin/Globulin Ratio 1.2 (1-3) TSH 1.49 (0.34-5.60) mcIU/mL Result Diagrams: 05/16/16 21:40 05/17/16 05:45 Lab Statement: Any lab studies that have been ordered have been reviewed, and results considered in the medical decision making process. - Radiology CXR Radiology Interpretation Completed By: Radiologist - Enlarged cardiac silhouette. Mild improved aeration left base. - EKG 2126 EKG Interpretation: bradycardia 36 bpm, third degree block, baseline wander Course/Dx - Course Course Of Treatment: Jose Enrique Puri presented wit4h a chief C/O of fatigur and SOB with any exertion starting today. He had wome mild C/O vague CP for a couple days. He felt like his heart was racing at times. He was found to be in complete heart block but stable while lying down. h"e was placed on the monitor and O2. His labs returned showing a hyperkalemia of 6.9. This was treated with Calcium and inssulin nd glucose and the hospitalist was contacted for admission. Dr. Arango was also alerted. - Diagnoses Provider Diagnoses: Complete heart block, Hyperkalemia - Physician Notifications Discussed Care Of Patient With: Dr. Arango (cardiology) @ 6: notified of case. Dr. Caceres (hospitalist) @ 2233: accepts admission. - Critical Care Time Critical Care Time: 30-74 min Discharge - Discharge Plan Condition: Stable Disposition: ADMITTED TO [facility] The documentation as recorded by the Jasbir mcmillan Billy accurately reflects the service I personally performed and the decisions made by me, Bennie Casarez MD.
--- NOTE | 2016-05-17 14:07 | PN ---
Subjective Date of Service: 05/17/16 Interval History: HOSPITALIST PROGRESS NOTE Patient seen and examined at bedside. He feels a little better now, but felt fatigued and dyspneic while cleaning up in bed earlier today. Denies chest pain or palpitations. Family History: Unchanged from Admission Social History: Unchanged from Admission Past Medical History: Unchanged from Admission Objective Active Medications: Albuterol (Ventolin 2.5 Mg/3 Ml Neb.Eva*) 2.5 mg INH Q6H PRN PRN Reason: SOB/WHEEZING Amlodipine Besylate (Norvasc Tab*) 5 mg PO DAILY [facility] Last Admin: 05/17/16 10:34 Dose: Not Given Cholecalciferol (Vitamin D Tab*) 5,000 units PO DAILY [facility] Last Admin: 05/17/16 09:43 Dose: 5,000 units Citalopram Hydrobromide (Celexa Tab*) 40 mg PO DAILY [facility] Last Admin: 05/17/16 09:43 Dose: 40 mg Cyanocobalamin (Vitamin B12 Tab*) 500 mcg PO DAILY [facility] Last Admin: 05/17/16 09:44 Dose: 500 mcg Dexamethasone (Decadron Tab*) 4 mg PO Q48H [facility] Last Admin: 05/17/16 09:44 Dose: 4 mg Fluticasone Propionate (Flonase Nasal [place] 50mcg*) 1 spray BOTH NARES DAILY [facility] Last Admin: 05/17/16 10:34 Dose: 1 spray Hydromorphone HCl (Dilaudid Iv*) 1 mg IV SLOW PU Q4H PRN PRN Reason: PAIN Last Admin: 05/17/16 12:24 Dose: 1 mg Hydroxychloroquine Sulfate (Plaquenil Tab*) 200 mg PO BID [facility] Last Admin: 05/17/16 09:10 Dose: 200 mg Nicotine Polacrilex (Nicotine Gum*) 2 mg PO Q2H PRN PRN Reason: CRAVING Last Admin: 05/17/16 10:36 Dose: 2 mg Pantoprazole Sodium (Protonix Tab (Nf)) 40 mg PO 0730 [facility] PRN Reason: Protocol Last Admin: 05/17/16 09:10 Dose: 40 mg Sevelamer Carbonate (Renvela Tab*) 800 mg PO TID [facility] Last Admin: 05/17/16 10:35 Dose: Not Given Vital Signs 05/17/16 05/17/1617 08:00 08:09 09:00 Temperature Pulse Rate 43 Respiratory 23 16 16 Rate Blood Pressure 134/74 (mmHg) O2 Sat by Pulse 95 Oximetry 05/17/16 05/17/16 05/17/16 12:00 12:15 12:24 Temperature 98.9 F Pulse Rate Respiratory 20 20 16 Rate Blood Pressure 131/61 106/88 (mmHg) O2 Sat by Pulse Oximetry Oxygen Devices in Use Now: None Appearance: Young male lying in bed in NAD. Eyes: No Scleral Icterus Ears/Nose/Mouth/Throat: Mucous Membranes Moist Neck: Trachea Midline Respiratory: Symmetrical Chest Expansion and Respiratory Effort, Clear to Auscultation Cardiovascular: RRR - Normal S1 and S2 Abdominal: NL Sounds; No Tenderness; No Distention Extremities: No Edema Neurological: Alert and Oriented x 3, NL Muscle Strength and Tone Lines/Tubes/Other Access: Clean, Dry and Intact Peripheral IV Nutrition: Taking PO's Result Diagrams: 05/16/16 21:40 05/17/16 05:45 Assess/Plan/Problems-Billing Assessment: Mr. Puri is a 31yo M with of SLE, pericarditis, h/o renal tumor s/o nephrectomy , ESRD on HD, HTN, recent admission for pericarditis/pleuritis, who presented to ED with c/o fatigue and dyspnea, found to have 3rd degree AVB. - Patient Problems (1) Third degree AV block Comment: - Recently admitted for pericarditis, saw Dr. Baugh last week and started tapering steroids. Started to have CP over the weekend, followed by fatigue and dyspnea. - D/w Dr. Baugh - could be secondary to lupus associated myocarditis - will give Solumedrol 1mg/kg/day and he'll see in consultation. - Cardiology input appreciated - w/u in progress. Dr. Clements also concerned with Plaquenil toxicity as patient was recently started on it - will hold it for now, until seen by Dr. Baugh. - Continue to monitor in ICU with pacer pads on. - VS are stable but he becomes symptomatic with minimal exertion. (2) SLE (systemic lupus erythematosus) Comment: - Anti-dsDNA was negative and C3/C4 were normal on his prior admission. - Recently switched from Cellcept to Plaquenil. - Will repeat anti-dsDNA, C3 and C4. - Switch dexamethasone to methylprednisolone and hold Plaquenil for now. (3) Hyperkalemia Comment: - Trending down - repeat K level after HD. (4) ESRD (end-stage renal disease) due to SLE Comment: - Already had HD today - continue MWF regimen. (5) HTN (hypertension) Comment: - Continue Amlodipine. (6) DVT prophylaxis Comment: - SQ heparin. (7) Full code status Status and Disposition: Inpatient for management of 3rd degree AVB in the ICU setting.
[2016-05-17 15:05] LABS: BUN/Creatinine Ratio 9.5 (8-20); Calcium 6.9 mg/dL (8.6-10.3); EGFR Non-African American 16.3 (>60); Potassium 4.2 mmol/L (3.5-5.0)
--- NOTE | 2016-05-17 15:15 | CONSULT ---
Subjective Date of Service: 05/17/16 Interval History: Admission Date: 05/16/16 Hospitalist service DATE OF CONSULT: 05/17/16 CC: dyspnea REASON FOR CONSULTATION: Heart block HISTORY OF PRESENT ILLNESS: Jose Enrique Puri is a 31-year-old man with a history of long standing lupus, ESRD related to lupus who was recently hospitalized earlier this month for pericarditis with a pericardial effusion. He saw his [employer] Dr. Baugh 05/14/2016 and steroids were tapered and plaquenil 200 mg PO daily was started and cellcept stopped. He was admitted with dyspnea and feeling heart not beating enough. He was noted to have third degree heart block with a stable junctional escape. He denies any syncope. He had a potassium of 6.9 and was on 100 mg of PO toprol daily. PAST MEDICAL HISTORY: Lupus since age 8 ESRD on HD HTN Recent pericarditis ALLERGIES: He is allergic or intolerant to PREDNISONE (causes irritability) and HYDRALAZINE. FAMILY HISTORY: Father and mother history of diabetes. SOCIAL HISTORY: The patient smokes about a pack a week. Denies alcohol abuse. Supportive sister in the [place] PAST SURGICAL HISTORY: Significant for nephrectomy, hernia repair, splenectomy , and fistula placement. ALLERGIES: He has an allergy/adverse reaction to HYDRALAZINE and PREDNISONE, which causes psychosis. FAMILY HISTORY: Both parents are diabetics. SOCIAL HISTORY: He smokes about a pack of cigarettes a week, smoking since age 13. He says he drinks occasional alcohol. He does not have a healthcare proxy. Moved up from [facility] recently because of medical problems to be closer to family. Medications Active Medications: Albuterol (Ventolin 2.5 Mg/3 Ml Neb.Kashif*) 2.5 mg INH Q6H PRN PRN Reason: SOB/WHEEZING Amlodipine Besylate (Norvasc Tab*) 5 mg PO DAILY [facility] Last Admin: 05/17/16 10:34 Dose: Not Given Cholecalciferol (Vitamin D Tab*) 5,000 units PO DAILY [facility] Last Admin: 05/17/16 09:43 Dose: 5,000 units Citalopram Hydrobromide (Celexa Tab*) 40 mg PO DAILY [facility] Last Admin: 05/17/16 09:43 Dose: 40 mg Cyanocobalamin (Vitamin B12 Tab*) 500 mcg PO DAILY [facility] Last Admin: 05/17/16 09:44 Dose: 500 mcg Fluticasone Propionate (Flonase Nasal [place] 50mcg*) 1 spray BOTH NARES DAILY [facility] Last Admin: 05/17/16 10:34 Dose: 1 spray Heparin Sodium (Porcine) (Heparin Vial(*)) 5,000 units SUBCUT Q8HR [facility] Hydromorphone HCl (Dilaudid Iv*) 1 mg IV SLOW PU Q4H PRN PRN Reason: PAIN Last Admin: 05/17/16 12:24 Dose: 1 mg Methylprednisolone Sodium Succinate (Solu-Medrol*) 80 mg IV DAILY [facility] Nicotine Polacrilex (Nicotine Gum*) 2 mg PO Q2H PRN PRN Reason: CRAVING Last Admin: 05/17/16 10:36 Dose: 2 mg Pantoprazole Sodium (Protonix Tab (Nf)) 40 mg PO 0730 [facility] PRN Reason: Protocol Last Admin: 05/17/16 09:10 Dose: 40 mg Sevelamer Carbonate (Renvela Tab*) 800 mg PO TID [facility] Last Admin: 05/17/16 10:35 Dose: Not Given Home Medications: Albuterol 2.5MG/3ML (0.083%)* [Ventolin 2.5 MG/3 ML NEB.KASHIF*] 2.5 mg INH Q6H PRN 05/02/16 [History Confirmed 05/16/16] Cholecalciferol TAB* [Vitamin D TAB*] 5,000 units PO DAILY 05/02/16 [History Confirmed 05/16/16] Citalopram TAB* [Celexa TAB*] 40 mg PO DAILY 05/02/16 [History Confirmed ] Cyanocobalamin TAB* [Vitamin B12 TAB*] 500 mcg PO DAILY 05/02/16 [History Confirmed 05/16/16] Fluticasone NASAL SPRAY 50MCG* [Flonase NASAL SPRAY 50MCG*] 50 mcg BOTH NARES DAILY 05/02/16 [History Confirmed 05/16/16] Lansoprazole [Prevacid] 30 mg PO DAILY 05/02/16 [History Confirmed 05/16/16] Metoprolol Tartrate TAB* [Lopressor TAB*] 100 mg PO DAILY 05/02/16 [History Confirmed 05/16/16] amLODIPine TAB* [Norvasc TAB*] 5 mg PO DAILY 05/02/16 [History Confirmed ] Review of Systems - Measurements Intake and Output: Intake and Output Last 24 Hours 05/15/16 05/16/16 05/17/16 05/18/16 06:59 06:59 06:59 06:59 Intake Total 450 430 Output Total 100 Balance 350 430 Weight 184 lb 4.903 oz Intake: Oral 450 430 Output: Urine 100 - Review of Systems Constitutional Symptoms: Negative: Weight Loss, Weakness, Fatigue, Fever, Night Sweats Dermatology: Negative: Rash, Skin Lesions HEENT: Negative: Change in Hearing, Vertigo Eyes: Negative: Change in Vision, Double Vision, Eye Pain Thyroid: Negative: Cold Intolerance, Heat Intolerance, Sweatiness, Palpitations, Primary Hypothyroidism, Primary Hyperthyroidism, Weight Loss, Weight Gain, Change in Skin/Hair Pulmonary: Positive: Respiratory Distress, Shortness of Breath, Exercise Intolerance Negative: Cough, Sputum, Hemoptysis, Wheezing, COPD, Asthma, Home Oxygen Cardiology: Positive: Chest Pain Negative: Shortness of Breath, Palpitations, Swelling of Ankles, Peripheral Vascular Dis, Edema, Syncope, Claudication, Paroxysmal Nocturnal Dyspnea, Orthopnea Gastroenterology: Negative: Abdominal Pain, Nausea, Vomiting, Anorexia, Indigestion, Difficulty Swallowing, Heartburn, Constipation, Diarrhea, Blood in Stools, Change in Bowel Habits, Haematemesis, Melena Genital - Urinary: Negative: Dysuria, Hematuria, Polyuria, Nocturia Musculoskeletal: Negative: Joint Pain, Joint Stiffness, Arthritis, Osteoporosis, Low Back Pain , Sciatica Endocrinology: Negative: Thyroid Problems, Family Hx Endocrine Disorders, Obesity, Diabetes , Calluses, Hirsutism, Polydipsia, Polyuria, Gynecomastia Hematologic/Lymphatic: Negative: Hx Leukemia, Hx Lymphoma Neurology: Negative: Diplopia, Dizziness, Change in Balancing, Change in Coordination, Change in Memory, Change in Speech, Change in Sphincter Function, Change in Walking, Numbness\Paresthesiae, Hx of Stroke\TIA, Hx Seizures Psychiatry: Negative: Adhedonia, Weight Change, Tearfulness, Unusual Anxiety Allergic/Immunologic: Positive: Immunocompromise Negative: Hx Anaphylaxis, Hx Angioedema, Hx Environmental Allergies, Hx Seasonal Allergies, Swollen Glands Lymph Nodes Review of Systems Statement: All other review of systems negative, unless stated above. Objective Vital Signs: Temp Pulse Resp BP Pulse Ox 98.9 F 43 16 165/82 95 05/17/16 12:00 05/17/16 08:00 05/17/16 14:01 05/17/16 13:00 05/17/16 08:00 Oxygen Devices in Use Now: None Appearance: chronically ill appearing but not distressed Ears/Nose/Mouth/Throat: Clear Oropharnyx, Mucous Membranes Moist Neck: NL Appearance and Movements; NL JVP Respiratory: Symmetrical Chest Expansion and Respiratory Effort, Clear to Auscultation Cardiovascular: No Edema, - - bradycardic, regular Abdominal: NL Sounds; No Tenderness; No Distention Extremities: No Edema Skin: No Rash or Ulcers Neurological: Alert and Oriented x 3 Laboratory Results: 05/16/16 21:40 05/17/16 14:30 Total Bilirubin 0.30 mg/dL (0.2-1.0) 05/16/16 21:40 AST 24 U/L (13-39) 05/16/16 21:40 ALT 27 U/L (7-52) 05/16/16 21:40 Alkaline Phosphatase 49 U/L (34-104) 05/16/16 21:40 Total Protein 6.7 g/dL (6.4-8.9) 05/16/16 21:40 Albumin 3.7 g/dL (3.2-5.2) 05/16/16 21:40 Globulin 3.0 g/dL (2-4) 05/16/16 21:40 Albumin/Globulin Ratio 1.2 (1-3) 05/16/16 21:40 TSH 1.49 mcIU/mL (0.34-5.60) 05/16/16 21:40 05/16/16 05/17/16 21:40 11:10 Troponin I 0.04 H* 0.07 H* Diagnostic Imaging: TTE 05/17/2016: Mild LV dilation, moderate LVH, LVEF 55-60%, minimal septal bounce, RV mildly dilated with low normal RV funciton, mild MR, moderate TR. Since prior study from 05/03/2016 moderate pericardial effusion resolved. EKG Data: EKG 05/17/2016: NSR rate ~ 100 bpm, complete AV block, stable junctional escape rhythm ~ 36 bpm EKG 05/02/2016: NSR 85 bpm, normal AV conduction Assessment/Plan Jose Enrique Puri is a 31 year old man admitted with symptomatic complete heart block with a stable junctional escape in the setting of high dose BB use (100 mg toprol), hyperkalemia, recent plaquenil initiation and ? lupus flare - Avoid rate control/AV levon agents - Correct K+ with dialysis and pharmacologic use - Check and f/u blood cultures. - There are case reports of AV block resolving with stopping hydroxycholoroquine (AV block also listed as known side effect of medicine) therapy and high dose IV steroids which is what I recommend along with continued cardiac monitoring if ok with Rheumatology Thank you for allowing me to participate in the cardiovascular care of this patient. Please do not hesitate to contact me with questions or concerns.
--- NOTE | 2016-05-17 15:50 | CONSULT ---
Consult Consult: A) Lupus Cardiomyopathy AV Block History of pericarditis PLAN) Agree with trial of Solumedrol Stop Plaquenil. Would follow complements, DSDNA.
--- NOTE | 2016-05-17 16:02 | ECHO ---
Patient: ANGIE KAPOOR [facility] Rec#: [id number] : 1985 Date: 05/17/2016 Age: 31y Height: 162.6 cm / 64.0 in Weight: 83.5 kg / 184.0 lbs Sex: M BSA: 1.89 Room#: ICU 1 Admit Date#: 05/17/2016 Type: Inpatient Referring: Gwendolyn Martinez MD Reading: Cristóbal Clements DO Educational Administrator: Adwoa Kahn RN RDCS CC: Charanjit Pacheco MD CC: Charanjit Flores MD CC: Gricelda Arango MD Transthoracic Echocardiogram Indication: 3rd degree AV block BP: 134/74 HR: 46 Rhythm: Heart Block Findings History: Lupus, renal cell carcinoma, ESRD, hemodialysis, smoker, pericarditis Technical Comments: The study is technically limited due to the patient's smoking history. Left Ventricle: The left ventricular chamber size is mildly dilated. Moderate concentric left ventricular hypertrophy is observed. Global left ventricular wall motion and contractility are within normal limits. There is normal left ventricular systolic function. The estimated ejection fraction is 55-60%. There is minimal abnormal septal motion of uncertain significance, possible related to recent pericardial effusion/pericarditis The assessment of diastolic function is non-diagnostic. Left Atrium: The left atrium is mildly dilated. Right Ventricle: The right ventricle is mildly dilated. The right ventricular global systolic function is low normal. Right Atrium: The right atrium is mild to moderately dilated. Aortic Valve: The aortic valve is trileaflet. The aortic valve leaflets are mildly thickened. There is a trace of aortic regurgitation. There is no evidence of aortic stenosis. Mitral Valve: The mitral valve leaflets are mildly thickened. There is mild mitral regurgitation. There is no evidence of mitral stenosis. Tricuspid Valve: The tricuspid valve leaflets are normal. There is moderate tricuspid regurgitation. There is evidence of mild pulmonary hypertension. Pulmonic Valve: The pulmonic valve appears normal. There is mild pulmonic regurgitation. There is no pulmonic stenosis. Pericardium: There is no significant pericardial effusion. Aorta: There is no dilatation of the ascending aorta. There is no dilatation of the aortic arch. The aortic root is normal in size. Pulmonary Artery: The main pulmonary artery is not well visualized. Venous: The inferior vena cava is dilated. There is less than 50% respiratory change in the inferior vena cava dimension. Conclusions The left ventricular chamber size is mildly dilated. Moderate concentric left ventricular hypertrophy is observed. The estimated LV ejection fraction is normal at 55-60%. There is minimal abnormal septal motion of uncertain significance, possible related to recent pericardial effusion/pericarditis The right ventricle is mildly dilated with low normal RV function. There is mild mitral regurgitation. There is moderate tricuspid regurgitation. There is evidence of mild pulmonary hypertension. There is no significant pericardial effusion. Compared to prior study from 05/03/2016, mild-moderate pericardial effusion has resolved, RV is now mildly dilated (normal previously), moderate tricuspid regurgitation now present (was trace previously). Patient is in complete heart block at time of this study (was in NSR previously) Measurements Name Value Normal Range RVIDd (AP) 2D 3.8 cm (0.9 - 2.6) RVDdMajor (2D) 4.8 cm (2.2 - 4.4) RAd ISD 4CH 6.4 cm (3.4 - 4.9) RA (A4C)W 5.4 cm (2.9 - 4.6) IVSd (2D) 1.5 cm (0.6 - 1) LVPWd (2D) 1.4 cm (0.6 - 1) LVIDd (2D) 5.6 cm (3.6 - 5.4) LVIDs (2D) 3.5 cm - LV FS (2D) 38 % (25 - 45) Aortic Annulus 2.3 cm (1.4 - 2.6) Ao root diameter (2D) 3 cm (2.1 - 3.5) Ascending Ao 3.1 cm (2.1 - 3.4) Aortic arch 2.9 cm (1.8 - 3.4) LA dimension (AP) 2D 3.9 cm (2.3 - 3.8) LAd ISD 4CH 6.2 cm (2.9 - 5.3) LA ISD 4CH W 4.4 cm (2.5 - 4.5) Name Value Normal Range LA ESV SP 4CH (A/L) 86 ml - LA ESV SP 2CH (A/L) 66 ml - LA ESV BP (A/L) 76 ml - LA ESV BP (A/L) index 40.2 ml/m2 - LA ESV SP 4CH (MOD) 81 ml - LA ESV SP 2CH (MOD) 64 ml - Name Value Normal Range MV E-wave Vmax 1.5 m/sec - MV deceleration time 156 msec - MV A-wave Vmax 0.61 m/sec - MV E:A ratio 2.5 ratio - LV septal e' Vmax 0.09 m/sec - LV lateral e' Vmax 0.12 m/sec - LV E:e' septal ratio 16.7 ratio - LV E:e' lateral ratio 12.5 ratio - Name Value Normal Range AV Vmax 2.1 m/sec - AV VTI 47 cm - AV peak gradient 18 mmHg - AV mean gradient 12 mmHg - AV annulus diameter 2.2 cm - LVOT Vmax 1.7 m/sec - LVOT VTI 30.2 cm - DANIEL (continuity Vmax) 3.1 cm2 - DANIEL (continuity VTI) 2.4 cm2 - Name Value Normal Range TR Vmax 2.3 m/sec - TR peak gradient 21 mmHg - RAP 15 mmHg - RVSP 36 mmHg - IVC diameter 2.6 cm - Name Value Normal Range PV Vmax 0.96 m/sec -
[2016-05-17] MEDS: methylPREDNISolone 125 MG* 2 ML VIAL IV SCH (17:52)
--- NOTE | 2016-05-17 20:10 | CONS ---
CONSULTATION REPORT: DATE OF CONSULT: 05/17/16 CONSULTING PHYSICIAN: Dr. Wallace. REASON FOR CONSULTATION: Evaluate for pericarditis. HISTORY OF PRESENT ILLNESS: Mr. Puri is a 31-year-old male with a longstanding history of lupus wi th complications of dialysis. He recently saw me on the as an outpatient, at which time his Ce llCept was switched to Plaquenil to see if this would better help his lupus and prevent further epis odes of pericarditis or pleurisy. He has also been on a steroid taper, which he had initiated on a recent hospitalization. He was admitted with feelings of abrupt shortness of breath, which began wi th pain in his left shoulder after dialysis. He was able to go to bed but the pain and discomfort w lissy him up with more shortness of breath and seemed to occur with any slight exertion. It was not p ositional in nature but it was more severe than his prior episode of pericarditis. He also had some left- sided chest wall pain and he felt like his heart was slowing down. He denied any vomiting or nausea, no diaphoresis. Of note, he did have dialysis on the day prior to admission. In the [facility], he was evaluated and found to have third degree heart block and he was found to be hype rkalemic with a potassium of 6.9. PAST MEDICAL HISTORY: Includes: 1. Pericarditis. 2. Lupus. 3. Renal cell carcinoma. 4. End-stage renal disease, on dialysis. 5. Hypertension. PAST SURGICAL HISTORY: Includes: 1. Nephrectomy. 2. Hernia scar. 3. Splenectomy and fistula placement. MEDICATIONS: Include: 1. Plaquenil 200 mg daily, which had been recently started as an outpatient. This is currently on hold. 2. Citalopram. 3. Solu-Medrol, which he started after consultation with his hospitalist. 4. Cholecalciferol. 5. Albuterol inhaler as needed. 6. Flonase. 7. Vitamin B12. 8. Metoprolol. 9. Prevacid. 10. Amlodipine. ALLERGIES: Include an adverse reaction to hydralazine and prednisone. Prednisone has caused suicid al ideations in the past. FAMILY HISTORY: Notable for diabetes. He has a supportive family. SOCIAL HISTORY: He smoked about a half pack of cigarettes per week and was strongly urged to quit. He only occasionally drinks alcohol. 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 He is planning to switch back to his care. REVIEW OF SYSTEMS: General: Mild fatigue. Cardiac: As noted above. Pulmonary: As noted above. Eyes: No dry eyes. Mouth: No recent dry mouth. Central nervous system: Mild grogginess after re cent procedure. No focal weakness; however, otherwise neurologic nonfocal with no motor loss, no lo ss of strength. Musculoskeletal: Denies joint pain peripherally. Skin: Denies any new rash. Genit ourinary: Denies any blood in the urine or stool. Other 14-point review of systems were reviewed a nd were otherwise negative. PHYSICAL EXAMINATION: General: He is a pleasant male lying in bed in no acute distress. Slightly groggy. Vital Signs: Blood pressure 127/70, pulse ox 98%, respiratory rate of 18, heart rate 47 be ats per minute, temperature of 99.6 degrees in the ER. HEENT: Normocephalic and atraumatic. Pupil s equal, round, and reactive to light and accommodate. Moist mucous membranes. Neck: Supple. No J [employer]OTTLE [employer] ATTENDANT elevation. Vascular: No bruits. Lungs: Clear to auscultation bilaterally. Cardiovascular: Re vealed S1 and S2 but he is bradycardic with a regular rate. Abdomen: Positive bowel sounds in all 4 quadrants. Soft, nontender, and nondistended. No hepatosplenomegaly. Extremities: No cyanosis, clubbing, or edema. 2+ pulses peripherally. Skin: No rashes. Endocrine: No palpable thyroid gla nd. Neurologic: Slightly groggy after recent procedure but moves all extremities and was oriented. Lymph: No adenopathy. LABS: He had a white count of 14.5, hemoglobin of 9.3, hematocrit of 29, platelets of 328,000. Tro ponin of 0.04. Lactic acid of 2.3. Chest x-ray showed enlarged cardiac silhouette. Mild improveme nt in aeration of the left base. EKG showed third degree heart block, ventricular rate of 36 beats per minute. ASSESSMENT: 1. New onset third degree heart block. 2. History of pericarditis. 3. History of lupus. 4. History of depression. 5. History of renal cell carcinoma. At this point in time, he may have a recurrent flare of his pericarditis. There have been some repo rts of rapid cardiomyopathy with some Plaquenil and I agree with holding this. He is on steroids an d I agree with treatment with Solu-Medrol, which hopefully can be tapered down. He may need a pacer if symptoms do not resolve, but I will defer this of course to Cardiology. Would recheck his compl ements and double-stranded DNA, which were normal on the last admission. TIME SPENT: Time spent was greater than 60 minutes with greater than 50% of the time spent counseli ng the patient. [id number]/[facility] #: [id number]
[2016-05-17] MEDS: Heparin VIAL(*) 5000 UNITS/ML VIAL (FIVE THOUSAND) SUBCUT SCH (22:13)
[2016-05-18] MEDS: HYDROmorphone INJ* 1 MG/ML CARPUJECT SYRINGE IV SLOW PU PRN ×5 (01:29→23:53)
[2016-05-18 05:13] LABS: BUN/Creatinine Ratio 9.6 (8-20); EGFR Non-African American 8.7 (>60)
[2016-05-18 05:14] LABS: Calcium 9.1 mg/dL (8.6-10.3); EGFR African American 11.1 (>60)
[2016-05-18 05:17] LABS: Potassium 6.1 mmol/L (3.5-5.0)
[2016-05-18] MEDS ORDERED: Calcium Gluconate INJ* 1 GM in NS 0.9% 50 ML* 50 ML IVPB ONE (08:36)
[2016-05-18] MEDS ORDERED: Insulin REGULAR(*) 1 UNITS UNIT IV PUSH ONE (08:36)
[2016-05-18] MEDS ORDERED: DEXTROSE 50% IV ONE (08:37)
[2016-05-18] MEDS ORDERED: WATER IV ONE (08:37)
[2016-05-18] MEDS ORDERED: Sodium Polystyrene ORAL.SOL* 15 GM/60 ML BTL PO ONE ×2 (08:37→17:26)
[2016-05-18] MEDS: methylPREDNISolone 125 MG* 2 ML VIAL IV SCH (09:48)
[2016-05-18] MEDS: Dextrose 50% Syringe 50 ML* 25 GM/50 ML SYRINGE ONE ×2 (09:48→10:28)
[2016-05-18] MEDS: Citalopram TAB* 40 MG PO SCH (09:49)
[2016-05-18] MEDS: Cyanocobalamin TAB* 500 MCG PO SCH (09:49)
[2016-05-18] MEDS: Heparin VIAL(*) 5000 UNITS/ML VIAL (FIVE THOUSAND) SUBCUT SCH ×3 (09:49→22:14)
[2016-05-18] MEDS: Cholecalciferol TAB* 1000 UNITS PO SCH ×2 (09:49→09:51)
[2016-05-18] MEDS: Sevelamer TAB* 800 MG PO SCH ×3 (09:59→17:56)
[2016-05-18] MEDS: amLODIPine TAB* 5 MG PO SCH (10:27)
[2016-05-18] MEDS: Fluticasone NASAL SPRAY 50MCG* 16 gm SPRAY BTL BOTH NARES SCH (10:29)
--- NOTE | 2016-05-18 12:38 | PN ---
Subjective Date of Service: 05/18/16 Interval History: HOSPITALIST PROGRESS NOTE Patient seen and examined at bedside. He feels a little better today. Denies CP, palpitations, dizziness or lightheadedness. Has minimal dyspnea with exertion. Family History: Unchanged from Admission Social History: Unchanged from Admission Past Medical History: Unchanged from Admission Objective Active Medications: Albuterol (Ventolin 2.5 Mg/3 Ml Neb.Eva*) 2.5 mg INH Q6H PRN PRN Reason: SOB/WHEEZING Amlodipine Besylate (Norvasc Tab*) 5 mg PO DAILY [facility] Last Admin: 05/18/16 10:27 Dose: Not Given Cholecalciferol (Vitamin D Tab*) 5,000 units PO DAILY [facility] Last Admin: 05/18/16 09:51 Dose: 5,000 units Citalopram Hydrobromide (Celexa Tab*) 40 mg PO DAILY [facility] Last Admin: 05/18/16 09:49 Dose: 40 mg Cyanocobalamin (Vitamin B12 Tab*) 500 mcg PO DAILY [facility] Last Admin: 05/18/16 09:49 Dose: 500 mcg Fluticasone Propionate (Flonase Nasal [place] 50mcg*) 1 spray BOTH NARES DAILY [facility] Last Admin: 05/18/16 10:29 Dose: Not Given Heparin Sodium (Porcine) (Heparin Vial(*)) 5,000 units SUBCUT Q8HR [facility] Last Admin: 05/18/16 09:49 Dose: 5,000 units Hydromorphone HCl (Dilaudid Iv*) 1 mg IV SLOW PU Q4H PRN PRN Reason: PAIN Last Admin: 05/18/16 10:28 Dose: 1 mg Methylprednisolone Sodium Succinate (Solu-Medrol*) 80 mg IV DAILY [facility] Last Admin: 05/18/16 09:48 Dose: 80 mg Nicotine Polacrilex (Nicotine Gum*) 2 mg PO Q2H PRN PRN Reason: CRAVING Last Admin: 05/17/16 10:36 Dose: 2 mg Pantoprazole Sodium (Protonix Tab (Nf)) 40 mg PO 0730 [facility] PRN Reason: Protocol Last Admin: 05/17/16 09:10 Dose: 40 mg Sevelamer Carbonate (Renvela Tab*) 800 mg PO AC [facility] Last Admin: 05/18/16 09:59 Dose: 800 mg Vital Signs 0105/18/16 05/18/16 09:00 10:28 12:00 Temperature 98.9 F Pulse Rate 35 Respiratory 17 16 Rate Blood Pressure 130/60 (mmHg) O2 Sat by Pulse 98 Oximetry Oxygen Devices in Use Now: None Appearance: Young male sitting up in bed in NAD. Eyes: No Scleral Icterus Ears/Nose/Mouth/Throat: Mucous Membranes Moist Neck: Trachea Midline Respiratory: Symmetrical Chest Expansion and Respiratory Effort, Clear to Auscultation Cardiovascular: RRR - Normal S1 and S2 Abdominal: NL Sounds; No Tenderness; No Distention Extremities: No Edema Neurological: Alert and Oriented x 3, NL Muscle Strength and Tone Lines/Tubes/Other Access: Clean, Dry and Intact Peripheral IV Nutrition: Taking PO's Result Diagrams: 05/16/16 21:40 05/18/16 04:35 Assess/Plan/Problems-Billing Assessment: Mr. Puri is a 31yo M with of SLE, pericarditis, h/o renal tumor s/o nephrectomy , ESRD on HD, HTN, recent admission for pericarditis/pleuritis, who presented to ED with c/o fatigue and dyspnea, found to have 3rd degree AVB. - Patient Problems (1) Third degree AV block Comment: - Could be secondary to lupus associated myocarditis vs Plaquenil side effect. - Lyme disease less likely. - Continue Solumedrol and monitor in ICU with pacer pads on. - VS are stable. (2) SLE (systemic lupus erythematosus) Comment: - Anti-dsDNA was negative and C3/C4 were normal on his prior admission. - Recently switched from Cellcept to Plaquenil. - Will repeat anti-dsDNA, C3 and C4. - Continue methylprednisolone and hold Plaquenil for now. (3) Hyperkalemia Comment: - Calcium gluconate, Insulin/dextrose, Kayexalate and repeat K level later today. (4) ESRD (end-stage renal disease) due to SLE Comment: - Continue MWF regimen. (5) HTN (hypertension) Comment: - Continue Amlodipine. (6) DVT prophylaxis Comment: - SQ heparin. (7) Full code status Status and Disposition: Inpatient for management of 3rd degree AVB in the ICU setting.
[2016-05-18] MEDS: CMCS Pantoprazole TAB (NF) 40 MG TAB PO SCH (12:44)
[2016-05-18 14:51] LABS: Calcium 9.3 mg/dL (8.6-10.3); EGFR African American 8.6 (>60); EGFR Non-African American 6.7 (>60)
[2016-05-18] MEDS: Nicotine GUM* 2 MG PO PRN (17:56)
--- NOTE | 2016-05-18 19:21 | PN ---
Subjective - Subjective History: Possible cardiomyopathy AV block Lupus History of pericarditis Continue Solumedrol, IV steroids can be tapered based on clinical improvement. Plaquenil on hold (he had no more than 2 doses as an out patient) Follow up complements and DSDNA results Active Problems: Active Problems DVT prophylaxis (Acute) [id number] - SQ heparin. ESRD (end-stage renal disease) due to SLE (Acute) M32.14, N18.6 - Continue MWF regimen. Full code status (Acute) Z78.9 HTN (hypertension) (Acute) I10 - Continue Amlodipine. Hyperkalemia (Acute) E87.5 - Calcium gluconate, Insulin/dextrose, Kayexalate and repeat K level later today. SLE (systemic lupus erythematosus) (Acute) M32.9 - Anti-dsDNA was negative and C3/C4 were normal on his prior admission. - Recently switched from Cellcept to Plaquenil. - Will repeat anti-dsDNA, C3 and C4. - Continue methylprednisolone and hold Plaquenil for now. Third degree AV block (Acute) I44.2 - Could be secondary to lupus associated myocarditis vs Plaquenil side effect. - Lyme disease less likely. - Continue Solumedrol and monitor in ICU with pacer pads on. - VS are stable. Current Medications: Current Medications Albuterol (Ventolin 2.5 Mg/3 Ml Neb.Kashif*) 2.5 mg INH Q6H PRN PRN Reason: SOB/WHEEZING Amlodipine Besylate (Norvasc Tab*) 5 mg PO DAILY [facility] Last Admin: 05/18/16 10:27 Dose: Not Given Cholecalciferol (Vitamin D Tab*) 5,000 units PO DAILY [facility] Last Admin: 05/18/16 09:51 Dose: 5,000 units Citalopram Hydrobromide (Celexa Tab*) 40 mg PO DAILY [facility] Last Admin: 05/18/16 09:49 Dose: 40 mg Cyanocobalamin (Vitamin B12 Tab*) 500 mcg PO DAILY [facility] Last Admin: 05/18/16 09:49 Dose: 500 mcg Fluticasone Propionate (Flonase Nasal [place] 50mcg*) 1 spray BOTH NARES DAILY [facility] Last Admin: 05/18/16 10:29 Dose: Not Given Heparin Sodium (Porcine) (Heparin Vial(*)) 5,000 units SUBCUT Q8HR [facility] Last Admin: 05/18/16 15:24 Dose: 5,000 units Hydromorphone HCl (Dilaudid Iv*) 1 mg IV SLOW PU Q4H PRN PRN Reason: PAIN Last Admin: 05/18/16 15:24 Dose: 1 mg Methylprednisolone Sodium Succinate (Solu-Medrol*) 80 mg IV DAILY [facility] Last Admin: 05/18/16 09:48 Dose: 80 mg Nicotine Polacrilex (Nicotine Gum*) 2 mg PO Q2H PRN PRN Reason: CRAVING Last Admin: 05/18/16 17:56 Dose: 2 mg Pantoprazole Sodium (Protonix Tab (Nf)) 40 mg PO 0730 [facility] PRN Reason: Protocol Last Admin: 05/18/16 12:44 Dose: 40 mg Sevelamer Carbonate (Renvela Tab*) 800 mg PO AC [facility] Last Admin: 05/18/16 17:56 Dose: 800 mg - Review of Systems General Comments: Overall feels well, denied chest pain or acute dyspnea Constitutional Symptoms: No: Weight Gain, Weight Loss Dermatology: Normal: No, Rash: No, Skin Lesions: No HEENT: No Normal Eyes: Positive: Normal Thyroid: Positive: Normal Pulmonary: Positive: Normal Cardiology: Positive: Other Gastroenterology: Positive: Normal Endocrinology: Positive: Normal Neurology: Positive: Normal Psychiatry: Positive: Normal Home Medications: Home Medications Medication Instructions Recorded Confirmed Type Albuterol 2.5MG/3ML (0.083%)* 2.5 mg INH Q6H PRN 05/02/16 05/16/16 History [Ventolin 2.5 MG/3 ML NEB.KASHIF*] Cholecalciferol TAB* [Vitamin D 5,000 units PO DAILY 05/02/16 05/16/16 History TAB*] Citalopram TAB* [Celexa TAB*] 40 mg PO DAILY 05/02/16 05/16/16 History Cyanocobalamin TAB* [Vitamin B12 500 mcg PO DAILY 05/02/16 05/16/16 History TAB*] Fluticasone NASAL SPRAY 50MCG* 50 mcg BOTH NARES DAILY 05/02/16 05/16/16 History [Flonase NASAL SPRAY 50MCG*] Lansoprazole [Prevacid] 30 mg PO DAILY 05/02/16 05/16/16 History Metoprolol Tartrate TAB* 100 mg PO DAILY 05/02/16 05/16/16 History [Lopressor TAB*] amLODIPine TAB* [Norvasc TAB*] 5 mg PO DAILY 05/02/16 05/16/16 History Allergies: Allergies Allergy/AdvReac Type Severity Reaction Status Date / Time Hydralazine Allergy Shortness Verified 05/02/16 10:00 of Breath Prednisone Allergy Hallucinati Verified 05/02/16 10:01 ons Objective - Vital Signs Vital Signs: Vital Signs 05/17/16 05/17/16 05/17/16 19:32 19:46 20:00 Temperature Pulse Rate 37 Respiratory 22 18 17 Rate Blood Pressure 131/63 (mmHg) O2 Sat by Pulse 97 Oximetry 05/17/16 05/17/16 05/17/16 20:39 21:00 22:00 Temperature Pulse Rate 38 37 35 Respiratory 15 19 19 Rate Blood Pressure 140/70 140/72 133/66 (mmHg) O2 Sat by Pulse 96 94 94 Oximetry 05/17/16 05/17/16 05/17/16 23:00 23:12 23:40 Temperature 99.8 F Pulse Rate 33 34 Respiratory 18 15 Rate Blood Pressure 123/43 134/63 (mmHg) O2 Sat by Pulse 97 96 Oximetry 05/18/16 05/18/16 05/18/16 00:00 00:02 01:00 Temperature Pulse Rate 33 33 35 Respiratory 18 15 18 Rate Blood Pressure 134/63 (mmHg) O2 Sat by Pulse 96 96 98 Oximetry 05/18/16 05/18/16 05/18/16 01:29 01:31 02:00 Temperature Pulse Rate 34 35 Respiratory 17 16 14 Rate Blood Pressure 149/60 147/71 (mmHg) O2 Sat by Pulse 97 95 Oximetry 05/18/16 05/18/16 05/18/16 03:00 03:54 04:00 Temperature 98.8 F Pulse Rate 34 35 Respiratory 16 14 Rate Blood Pressure 135/58 117/59 (mmHg) O2 Sat by Pulse 95 95 Oximetry 05/18/16 05/18/16 05/18/16 05:00 05:03 06:00 Temperature Pulse Rate 41 40 36 Respiratory 20 17 18 Rate Blood Pressure 135/67 119/58 (mmHg) O2 Sat by Pulse 97 97 98 Oximetry 05/18/16 05/18/16 05/18/16 07:00 07:42 08:00 Temperature 98.7 F Pulse Rate 37 37 Respiratory 18 16 Rate Blood Pressure 156/82 144/69 (mmHg) O2 Sat by Pulse 96 98 Oximetry 05/18/16 05/18/16 05/18/16 09:00 10:00 10:28 Temperature Pulse Rate 35 43 Respiratory 17 14 16 Rate Blood Pressure 130/60 142/68 (mmHg) O2 Sat by Pulse 98 99 Oximetry 05/18/16 05/18/16 05/18/16 11:00 12:00 13:00 Temperature 98.9 F Pulse Rate 59 42 84 Respiratory 16 15 19 Rate Blood Pressure 148/71 136/54 142/63 (mmHg) O2 Sat by Pulse 96 98 97 Oximetry 05/18/16 05/18/16 05/18/16 14:00 15:00 15:09 Temperature Pulse Rate 46 42 41 Respiratory 22 19 16 Rate Blood Pressure 139/65 133/62 121/59 (mmHg) O2 Sat by Pulse 94 97 97 Oximetry 05/18/16 05/18/16 05/18/16 15:24 15:33 16:00 Temperature 98 F Pulse Rate 44 Respiratory 20 20 Rate Blood Pressure 139/67 (mmHg) O2 Sat by Pulse 98 Oximetry 05/18/16 05/18/16 17:00 18:00 Temperature Pulse Rate 44 44 Respiratory 22 17 Rate Blood Pressure 120/67 (mmHg) O2 Sat by Pulse 94 95 Oximetry - Intake and Output Intake and Output: Intake & Output 05/16/16 05/17/16 05/18/16 05/19/16 06:59 06:59 06:59 06:59 Intake Total 450 790 460 Output Total 100 Balance 350 790 460 Weight 184 lb 4.903 oz 179 lb 3.773 oz Intake: Oral 450 790 460 Output: Urine 100 ADLs: Meal Record Start: 05/17/16 01: 52 Freq: ,,18 Status: Active Document 05/17/16 09:00 [id number] (Rec: 05/17/16 10:09 [id number] ICU-C20) Document 05/17/16 13:00 [id number] (Rec: 05/17/16 13:11 [id number] ICU-C20) Document 05/17/16 17:59 [id number] (Rec: 05/17/16 17:59 [id number] ICU-C16) Document 05/18/16 09:00 [id number] (Rec: 05/18/16 09:46 [id number] ICU-C20) Document 05/18/16 18:00 [id number] (Rec: 05/18/16 18:27 [id number] ICU-C16) Intake and Output Start: 05/17/16 01: 52 Freq: 06,14,22 Status: Active Document 05/17/16 03:30 [id number] (Rec: 05/17/16 04:17 [id number] ICU-C10) Document 05/17/16 06:00 [id number] (Rec: 05/17/16 06:03 [id number] ICU-C10) Document 05/17/16 13:53 [id number] (Rec: 05/17/16 13:53 [id number] ICU-C20) Document 05/18/16 14:00 [id number] (Rec: 05/18/16 14:33 [id number] ICU-C20) - Physical Exam General Physical Exam Comment: No acute distress; now supine, HR in low 40s Eye Exam: bilateral: PERRLA Head: Yes Normocephalic Thyroid Function: Clinically Euthyroid Lungs and Chest: Yes: Chest Expansion Full, Chest Expansion Symetrica Heart Rate and Rhythm: Normal JVP: Not Elevated [place] Beat: Non Displaced Additional Cardiovascular: Yes: [place] Beat not Displaced Abdominal Exam: Yes: Soft - Extremities Dorsalis Pedis Pulses: Bilateral Normal - Neuro Psychiatric: Normal Speech: Normal Results - Results Lab Results: Laboratory Results - last 24 hr 05/18/16 05/18/16 04:35 14:10 Sodium 127 L 132 L Potassium 6.1 H* D 5.0 Chloride 90 L 88 L Carbon Dioxide 23 26 Anion Gap 14 H 18 H BUN 70 H 82 H Creatinine 7.32 H 9.11 H Est GFR ( Amer) 11.1 8.6 Est GFR (Non-Af Amer) 8.7 6.7 BUN/Creatinine Ratio 9.6 9.0 Glucose 147 H 123 H Calcium 9.1 9.3 Assessment - Problem List Assessment: Patient Problems DVT prophylaxis (Acute) ESRD (end-stage renal disease) due to SLE (Acute) Full code status (Acute) HTN (hypertension) (Acute) Hyperkalemia (Acute) SLE (systemic lupus erythematosus) (Acute) Third degree AV block (Acute) ESRD (end stage renal disease) on dialysis (Acute) Pericarditis (Acute) Pericarditis in diseases classified elsewhere (Acute) Pleural effusion (Acute) Plan: Possible cardiomyopathy AV block Lupus History of pericarditis Continue Solumedrol, IV steroids can be tapered based on clinical improvement. Plaquenil on hold (he had no more than 2 doses as an out patient) Follow up complements and DSDNA results
[2016-05-19] MEDS: Heparin VIAL(*) 5000 UNITS/ML VIAL (FIVE THOUSAND) SUBCUT SCH ×3 (06:12→22:35)
[2016-05-19 06:35] LABS: BUN/Creatinine Ratio 9.9 (8-20); Calcium 8.3 mg/dL (8.6-10.3); EGFR Non-African American 5.5 (>60); Potassium 5.2 mmol/L (3.5-5.0)
[2016-05-19] MEDS: CMCS Pantoprazole TAB (NF) 40 MG TAB PO SCH (07:38)
[2016-05-19] MEDS: Sevelamer TAB* 800 MG PO SCH ×3 (08:45→18:10)
[2016-05-19] MEDS: amLODIPine TAB* 5 MG PO SCH (09:12)
[2016-05-19] MEDS: Cholecalciferol TAB* 1000 UNITS PO SCH (09:12)
[2016-05-19] MEDS: Fluticasone NASAL SPRAY 50MCG* 16 gm SPRAY BTL BOTH NARES SCH ×2 (09:13→09:23)
[2016-05-19] MEDS: Citalopram TAB* 40 MG PO SCH (09:13)
[2016-05-19] MEDS: Cyanocobalamin TAB* 500 MCG PO SCH (09:13)
[2016-05-19] MEDS: methylPREDNISolone 125 MG* 2 ML VIAL IV SCH ×2 (09:13→13:23)
[2016-05-19] MEDS: HYDROmorphone INJ* 1 MG/ML CARPUJECT SYRINGE IV SLOW PU PRN ×4 (09:29→22:35)
[2016-05-19] MEDS ORDERED: Epoetin Alfa* 10,000 UNITS/ML VIAL IV ONE (10:00)
--- NOTE | 2016-05-19 12:32 | PN ---
Subjective Date of Service: 05/19/16 - CC: fatigue, YEAGER. Interval History: Admission Date: 05/16/16 Hospitalist service Pt still c/o marked fatigue. Walked to commode in his room, breathing was better. Medications Active Medications: Albuterol (Ventolin 2.5 Mg/3 Ml Neb.Eva*) 2.5 mg INH Q6H PRN PRN Reason: SOB/WHEEZING Amlodipine Besylate (Norvasc Tab*) 5 mg PO DAILY [facility] Last Admin: 05/19/16 09:12 Dose: 5 mg Cholecalciferol (Vitamin D Tab*) 5,000 units PO DAILY [facility] Last Admin: 05/19/16 09:12 Dose: 5,000 units Citalopram Hydrobromide (Celexa Tab*) 40 mg PO DAILY [facility] Last Admin: 05/19/16 09:13 Dose: 40 mg Cyanocobalamin (Vitamin B12 Tab*) 500 mcg PO DAILY [facility] Last Admin: 05/19/16 09:13 Dose: 500 mcg Fluticasone Propionate (Flonase Nasal [place] 50mcg*) 1 spray BOTH NARES DAILY [facility] Last Admin: 05/19/16 09:23 Dose: Not Given Heparin Sodium (Porcine) (Heparin Vial(*)) 5,000 units SUBCUT Q8HR [facility] Last Admin: 05/19/16 06:12 Dose: 5,000 units Hydromorphone HCl (Dilaudid Iv*) 1 mg IV SLOW PU Q4H PRN PRN Reason: PAIN Last Admin: 05/19/16 09:29 Dose: 1 mg Methylprednisolone Sodium Succinate (Solu-Medrol*) 80 mg IV DAILY@1300 [facility] Nicotine Polacrilex (Nicotine Gum*) 2 mg PO Q2H PRN PRN Reason: CRAVING Last Admin: 05/18/16 17:56 Dose: 2 mg Pantoprazole Sodium (Protonix Tab (Nf)) 40 mg PO 0730 [facility] PRN Reason: Protocol Last Admin: 05/19/16 07:38 Dose: 40 mg Sevelamer Carbonate (Renvela Tab*) 800 mg PO AC [facility] Last Admin: 05/19/16 08:45 Dose: 800 mg Objective Vital Signs: Temp Pulse Resp BP Pulse Ox 98.7 F 69 15 153/66 97 05/19/16 11:37 05/19/16 11:30 05/19/16 11:30 05/19/16 11:30 05/19/16 11:30 Oxygen Devices in Use Now: None Appearance: chronically ill appearing but not distressed, lying at 10 degrees. Getting dialized. Eyes: PERRLA Ears/Nose/Mouth/Throat: Clear Oropharnyx, Mucous Membranes Moist Neck: NL Appearance and Movements; NL JVP Respiratory: Symmetrical Chest Expansion and Respiratory Effort, Clear to Auscultation Cardiovascular: RRR, No Edema, - Abdominal: NL Sounds; No Tenderness; No Distention Extremities: No Edema Skin: No Rash or Ulcers Neurological: Alert and Oriented x 3 Laboratory Results: 05/19/16 06:00 Total Bilirubin 0.30 mg/dL (0.2-1.0) 05/16/16 21:40 AST 24 U/L (13-39) 05/16/16 21:40 ALT 27 U/L (7-52) 05/16/16 21:40 Alkaline Phosphatase 49 U/L (34-104) 05/16/16 21:40 Total Protein 6.7 g/dL (6.4-8.9) 05/16/16 21:40 Albumin 3.7 g/dL (3.2-5.2) 05/16/16 21:40 Globulin 3.0 g/dL (2-4) 05/16/16 21:40 Albumin/Globulin Ratio 1.2 (1-3) 05/16/16 21:40 TSH 1.49 mcIU/mL (0.34-5.60) 05/16/16 21:40 05/17/16 11:10 Troponin I 0.07 H* Diagnostic Imaging: TTE 05/17/2016: Mild LV dilation, moderate LVH, LVEF 55-60%, minimal septal bounce, RV mildly dilated with low normal RV funciton, mild MR, moderate TR. Since prior study from 05/03/2016 moderate pericardial effusion resolved. EKG Data: EKG 05/17/2016: NSR rate ~ 100 bpm, complete AV block, stable junctional escape rhythm ~ 36 bpm EKG 05/02/2016: NSR 85 bpm, normal AV conduction Monitor 05/19/16: SR 1st degree AVB with occasional 2nd degree AVB Type 1. Assessment/Plan Jose Enrique Puri is a 31 year old man admitted with symptomatic complete heart block with a stable junctional escape in the setting of high dose BB use (100 mg toprol), hyperkalemia, recent plaquenil initiation and ? lupus flare, improving/ resolving off plaquenil, with improved K+ level, off Toprol, getting dialisis. Points of Discussion: Heart block: No new suggestions, continue monitoring. No pacemaker at this time, but may need to reconsider this admission. The patient is chronically immunocompromised and at increased risk for infection with any foreign body. If a pacemaker is implanted in the future, utilization of antibiotic mesh ( Tyrex envelope) indicated. Pericarditis: appears resolved on echo. Consider resumption of colchicine as steroids tapered. Compliance: Medication and lifestyle compliance are going to be extremely important to this patient's health, any assistance with information/outpatient services that are appropriate and available to the patient should be utilized.
[2016-05-19 12:57] LABS: Hematocrit 25 % (42-52); Hemoglobin 8.5 g/dl (14.0-18.0); Mean Corpuscular HGB Conc 34 g/dl (31-36); Mean Corpuscular Hemoglobin 36 pg (27-31); Mean Platelet Volume 9 um3 (7.4-10.4); Red Blood Count 2.41 10^6/ul (4.0-5.4); Red Cell Distribution Width 19 % (10.5-15); White Blood Count 12.4 10^3/ul (3.5-10.8)
[2016-05-19 12:58] LABS: Comments Flag Yes; Mean Corpuscular Volume 105 fL (80-94)
[2016-05-19 13:08] LABS: Albumin 3.4 g/dL (3.2-5.2); BUN/Creatinine Ratio 9.3 (8-20); C Reactive Protein 17.65 mg/L (< 5.00); Calcium 8.4 mg/dL (8.6-10.3); EGFR African American 19.9 (>60); EGFR Non-African American 15.4 (>60); Globulin 2.6 g/dL (2-4); Total Bilirubin 0.4 mg/dL (0.2-1.0)
[2016-05-19 13:42] LABS: Erythrocyte Sed Rate 34 mm/Hr (0-14)
--- NOTE | 2016-05-19 16:55 | PN ---
Subjective Date of Service: 05/19/16 Interval History: HOSPITALIST PROGRESS NOTE Patient seen and examined at bedside. He feels better today, dyspnea with exertion is much improved. Tolerating diet well, no N/V. Family History: Unchanged from Admission Social History: Unchanged from Admission Past Medical History: Unchanged from Admission Objective Active Medications: Albuterol (Ventolin 2.5 Mg/3 Ml Neb.Eva*) 2.5 mg INH Q6H PRN PRN Reason: SOB/WHEEZING Amlodipine Besylate (Norvasc Tab*) 5 mg PO DAILY [facility] Last Admin: 05/19/16 09:12 Dose: 5 mg Cholecalciferol (Vitamin D Tab*) 5,000 units PO DAILY [facility] Last Admin: 05/19/16 09:12 Dose: 5,000 units Citalopram Hydrobromide (Celexa Tab*) 40 mg PO DAILY [facility] Last Admin: 05/19/16 09:13 Dose: 40 mg Cyanocobalamin (Vitamin B12 Tab*) 500 mcg PO DAILY [facility] Last Admin: 05/19/16 09:13 Dose: 500 mcg Fluticasone Propionate (Flonase Nasal [place] 50mcg*) 1 spray BOTH NARES DAILY [facility] Last Admin: 05/19/16 09:23 Dose: Not Given Heparin Sodium (Porcine) (Heparin Vial(*)) 5,000 units SUBCUT Q8HR [facility] Last Admin: 05/19/16 13:23 Dose: 5,000 units Hydromorphone HCl (Dilaudid Iv*) 1 mg IV SLOW PU Q4H PRN PRN Reason: PAIN Last Admin: 05/19/16 13:43 Dose: 1 mg Methylprednisolone Sodium Succinate (Solu-Medrol*) 80 mg IV DAILY@1300 [facility] Last Admin: 05/19/16 13:23 Dose: 80 mg Nicotine Polacrilex (Nicotine Gum*) 2 mg PO Q2H PRN PRN Reason: CRAVING Last Admin: 05/18/16 17:56 Dose: 2 mg Pantoprazole Sodium (Protonix Tab (Nf)) 40 mg PO 0730 [facility] PRN Reason: Protocol Last Admin: 05/19/16 07:38 Dose: 40 mg Sevelamer Carbonate (Renvela Tab*) 800 mg PO AC [facility] Last Admin: 05/19/16 13:20 Dose: 800 mg Vital Signs 05/19/16 05/19/1617 11:30 11:37 11:45 Temperature 98.7 F Pulse Rate 69 Respiratory 15 Rate Blood Pressure 153/66 151/61 (mmHg) O2 Sat by Pulse 97 Oximetry Oxygen Devices in Use Now: None Appearance: Young male sitting up in bed in NAD. Eyes: No Scleral Icterus Ears/Nose/Mouth/Throat: Mucous Membranes Moist Neck: Trachea Midline Respiratory: Symmetrical Chest Expansion and Respiratory Effort, Clear to Auscultation Cardiovascular: RRR - Normal S1 and S2 Abdominal: NL Sounds; No Tenderness; No Distention Extremities: No Edema Neurological: Alert and Oriented x 3, NL Muscle Strength and Tone Lines/Tubes/Other Access: Clean, Dry and Intact Peripheral IV Nutrition: Taking PO's Result Diagrams: 05/19/16 12:25 05/19/16 12:25 Assess/Plan/Problems-Billing Assessment: Mr. Puri is a 31yo M with of SLE, pericarditis, h/o renal tumor s/o nephrectomy , ESRD on HD, HTN, recent admission for pericarditis/pleuritis, who presented to ED with c/o fatigue and dyspnea, found to have 3rd degree AVB. - Patient Problems (1) Third degree AV block Comment: - Improving. Now in 1st degree AVB. - Could be secondary to lupus associated myocarditis vs Plaquenil side effect. - Lyme disease PCR is negative. - Continue Solumedrol and monitor in ICU. - VS are stable. - Cardiology input appreciated - may still need pacer, but at risk for infection so Dr. Arango would recommend utilization of antibiotic mesh. (2) SLE (systemic lupus erythematosus) Comment: - Anti-dsDNA was negative and C3/C4 were normal on his prior admission. - Recently switched from Cellcept to Plaquenil. - Continue methylprednisolone. (3) Hyperkalemia Comment: - Resolved. - Continue to monitor. (4) ESRD (end-stage renal disease) due to SLE Comment: - Continue MWF regimen. (5) HTN (hypertension) Comment: - Continue Amlodipine. (6) DVT prophylaxis Comment: - SQ heparin. (7) Full code status Status and Disposition: Inpatient for management of 3rd degree AVB in the ICU setting.
--- NOTE | 2016-05-19 18:11 | PN ---
Subjective - Subjective Reason for Note: Progress Note History: Lupus: complements unremarkable but DSDNA is elevated, consistent with lupus flare, which likely has contributed to a cardiomyopathy. It is unclear if Plaquenil contributed to his AV block (he only had 2 doses and he had tolerated Plaquenil well in the distant past); it is on hold and residential we should consider switching his lupus steroid sparing medication back to Cellcept (or trial of Imuran). Heart block seems to be improving Pericarditis; Overall gradually improving. Consider switching steroids (if clinically improved) to medrol 16mg daily tomorrow with a gradual taper over the next month. ESRD: tolerating dialysis Active Problems: Active Problems DVT prophylaxis (Acute) [id number] - SQ heparin. ESRD (end-stage renal disease) due to SLE (Acute) M32.14, N18.6 - Continue MWF regimen. Full code status (Acute) Z78.9 HTN (hypertension) (Acute) I10 - Continue Amlodipine. Hyperkalemia (Acute) E87.5 - Resolved. - Continue to monitor. SLE (systemic lupus erythematosus) (Acute) M32.9 - Anti-dsDNA was negative and C3/C4 were normal on his prior admission. - Recently switched from Cellcept to Plaquenil. - Continue methylprednisolone. Third degree AV block (Acute) I44.2 - Improving. Now in 1st degree AVB. - Could be secondary to lupus associated myocarditis vs Plaquenil side effect. - Lyme disease PCR is negative. - Continue Solumedrol and monitor in ICU. - VS are stable. - Cardiology input appreciated - may still need pacer, but at risk for infection so Dr. Arango would recommend utilization of antibiotic mesh. Current Medications: Current Medications Albuterol (Ventolin 2.5 Mg/3 Ml Neb.Kashif*) 2.5 mg INH Q6H PRN PRN Reason: SOB/WHEEZING Amlodipine Besylate (Norvasc Tab*) 5 mg PO DAILY [facility] Last Admin: 05/19/16 09:12 Dose: 5 mg Cholecalciferol (Vitamin D Tab*) 5,000 units PO DAILY [facility] Last Admin: 05/19/16 09:12 Dose: 5,000 units Citalopram Hydrobromide (Celexa Tab*) 40 mg PO DAILY [facility] Last Admin: 05/19/16 09:13 Dose: 40 mg Cyanocobalamin (Vitamin B12 Tab*) 500 mcg PO DAILY [facility] Last Admin: 05/19/16 09:13 Dose: 500 mcg Fluticasone Propionate (Flonase Nasal [place] 50mcg*) 1 spray BOTH NARES DAILY [facility] Last Admin: 05/19/16 09:23 Dose: Not Given Heparin Sodium (Porcine) (Heparin Vial(*)) 5,000 units SUBCUT Q8HR [facility] Last Admin: 05/19/16 13:23 Dose: 5,000 units Hydromorphone HCl (Dilaudid Iv*) 1 mg IV SLOW PU Q4H PRN PRN Reason: PAIN Last Admin: 05/19/16 13:43 Dose: 1 mg Methylprednisolone Sodium Succinate (Solu-Medrol*) 80 mg IV DAILY@1300 [facility] Last Admin: 05/19/16 13:23 Dose: 80 mg Nicotine Polacrilex (Nicotine Gum*) 2 mg PO Q2H PRN PRN Reason: CRAVING Last Admin: 05/18/16 17:56 Dose: 2 mg Pantoprazole Sodium (Protonix Tab (Nf)) 40 mg PO 0730 [facility] PRN Reason: Protocol Last Admin: 05/19/16 07:38 Dose: 40 mg Sevelamer Carbonate (Renvela Tab*) 800 mg PO AC [facility] Last Admin: 05/19/16 13:20 Dose: 800 mg - Review of Systems General Comments: Overall feeling well; has had some mild dyspnea after dialysis and is now resting; denied significant shoulder pain or chest wall discomfort Constitutional Symptoms: Yes: Fatigue, No: Weight Gain, Weight Loss, Fever, Night Sweats, Unexplained Falls Dermatology: Normal: Yes HEENT: Yes Normal Eyes: Positive: Normal Pulmonary: Positive: Shortness of Breath Cardiology: Positive: Shortness of Breath Gastroenterology: Positive: Normal Musculoskeletal: Positive: Joint Stiffness Endocrinology: Positive: Normal Hematologic/Lymphatic: Positive: Anemia Neurology: Positive: Normal Psychiatry: Positive: Normal Home Medications: Home Medications Medication Instructions Recorded Confirmed Type Albuterol 2.5MG/3ML (0.083%)* 2.5 mg INH Q6H PRN 05/02/16 05/16/16 History [Ventolin 2.5 MG/3 ML NEB.KASHIF*] Cholecalciferol TAB* [Vitamin D 5,000 units PO DAILY 05/02/16 05/16/16 History TAB*] Citalopram TAB* [Celexa TAB*] 40 mg PO DAILY 05/02/16 05/16/16 History Cyanocobalamin TAB* [Vitamin B12 500 mcg PO DAILY 05/02/16 05/16/16 History TAB*] Fluticasone NASAL SPRAY 50MCG* 50 mcg BOTH NARES DAILY 05/02/16 05/16/16 History [Flonase NASAL SPRAY 50MCG*] Lansoprazole [Prevacid] 30 mg PO DAILY 05/02/16 05/16/16 History Metoprolol Tartrate TAB* 100 mg PO DAILY 05/02/16 05/16/16 History [Lopressor TAB*] amLODIPine TAB* [Norvasc TAB*] 5 mg PO DAILY 05/02/16 05/16/16 History Allergies: Allergies Allergy/AdvReac Type Severity Reaction Status Date / Time Hydralazine Allergy Shortness Verified 05/02/16 10:00 of Breath Prednisone Allergy Hallucinati Verified 05/02/16 10:01 ons Objective - Vital Signs Vital Signs: Vital Signs 05/18/16 05/18/16 05/18/16 19:31 19:48 19:49 Temperature 98.1 F Pulse Rate 41 Respiratory 24 21 Rate Blood Pressure 138/73 (mmHg) O2 Sat by Pulse 95 Oximetry 05/18/16 05/18/16 05/18/16 20:00 20:15 21:00 Temperature Pulse Rate 81 43 Respiratory 15 20 22 Rate Blood Pressure 142/72 (mmHg) O2 Sat by Pulse 97 96 Oximetry 05/18/16 05/18/16 05/18/16 22:00 23:00 23:05 Temperature Pulse Rate 36 109 Respiratory 22 25 25 Rate Blood Pressure 159/75 175/79 (mmHg) O2 Sat by Pulse 97 87 Oximetry 05/18/16 05/18/16 05/18/16 23:14 23:53 23:54 Temperature 98.1 F Pulse Rate Respiratory 19 19 Rate Blood Pressure (mmHg) O2 Sat by Pulse Oximetry 05/19/16 05/19/16 05/19/16 00:01 01:00 02:00 Temperature Pulse Rate 44 68 36 Respiratory 16 18 19 Rate Blood Pressure 175/83 156/82 139/73 (mmHg) O2 Sat by Pulse 97 96 94 Oximetry 05/19/16 05/19/16 05/19/16 03:00 03:04 04:00 Temperature 97.7 F Pulse Rate 36 33 36 Respiratory 18 17 19 Rate Blood Pressure 155/83 150/75 158/82 (mmHg) O2 Sat by Pulse 96 97 94 Oximetry 05/19/16 05/19/16 05/19/16 05:00 06:00 07:00 Temperature Pulse Rate 35 36 37 Respiratory 18 18 19 Rate Blood Pressure 138/63 (mmHg) O2 Sat by Pulse 92 95 94 Oximetry 05/19/16 05/19/16 05/19/16 07:37 07:39 07:43 Temperature 97.9 F Pulse Rate 34 Respiratory 20 20 Rate Blood Pressure 149/81 (mmHg) O2 Sat by Pulse 95 Oximetry 05/19/16 05/19/16 05/19/16 08:00 09:00 09:29 Temperature Pulse Rate 33 35 Respiratory 15 17 22 Rate Blood Pressure 147/78 132/104 (mmHg) O2 Sat by Pulse 95 96 Oximetry 05/19/16 05/19/16 05/19/16 09:50 10:00 10:15 Temperature Pulse Rate 72 76 77 Respiratory 19 17 21 Rate Blood Pressure 139/72 173/83 150/125 (mmHg) O2 Sat by Pulse 98 97 95 Oximetry 05/19/16 05/19/16 05/19/16 10:30 10:45 11:00 Temperature Pulse Rate 79 71 80 Respiratory 18 16 16 Rate Blood Pressure 158/68 158/71 132/86 (mmHg) O2 Sat by Pulse 97 95 96 Oximetry 05/19/16 05/19/16 05/19/16 11:15 11:30 11:37 Temperature 98.7 F Pulse Rate 79 69 Respiratory 15 15 Rate Blood Pressure 157/79 153/66 (mmHg) O2 Sat by Pulse 96 97 Oximetry 05/19/16 05/19/16 05/19/16 11:45 12:00 12:15 Temperature Pulse Rate 79 71 Respiratory 17 15 Rate Blood Pressure 151/61 164/86 145/64 (mmHg) O2 Sat by Pulse 96 96 Oximetry 05/19/16 05/19/16 05/19/16 12:30 12:45 13:00 Temperature Pulse Rate 60 83 82 Respiratory 17 16 21 Rate Blood Pressure 150/65 154/77 161/90 (mmHg) O2 Sat by Pulse 95 98 96 Oximetry 05/19/16 05/19/16 05/19/16 13:15 13:30 13:43 Temperature Pulse Rate 84 88 Respiratory 19 19 18 Rate Blood Pressure 169/117 180/143 (mmHg) O2 Sat by Pulse 94 97 Oximetry 05/19/16 05/19/16 05/19/16 13:45 13:47 14:00 Temperature Pulse Rate 55 88 84 Respiratory 19 21 18 Rate Blood Pressure 185/105 189/97 162/97 (mmHg) O2 Sat by Pulse 92 97 96 Oximetry 05/19/16 05/19/16 05/19/16 14:15 14:30 14:31 Temperature Pulse Rate 83 84 83 Respiratory 16 17 16 Rate Blood Pressure 165/91 180/112 171/95 (mmHg) O2 Sat by Pulse 97 97 96 Oximetry 05/19/16 05/19/16 05/19/16 14:45 15:00 15:15 Temperature Pulse Rate 77 84 82 Respiratory 16 16 17 Rate Blood Pressure 155/69 157/74 158/91 (mmHg) O2 Sat by Pulse 94 97 97 Oximetry 05/19/16 05/19/16 05/19/16 15:25 15:30 15:45 Temperature 99 F Pulse Rate 79 81 Respiratory 16 16 Rate Blood Pressure 150/76 163/91 (mmHg) O2 Sat by Pulse 96 97 Oximetry 05/19/16 05/19/16 05/19/16 16:00 16:15 16:30 Temperature Pulse Rate 76 75 76 Respiratory 15 16 19 Rate Blood Pressure 158/86 169/74 152/111 (mmHg) O2 Sat by Pulse 99 97 96 Oximetry 05/19/16 05/19/16 16:45 16:52 Temperature Pulse Rate 81 83 Respiratory 20 17 Rate Blood Pressure 173/118 157/89 (mmHg) O2 Sat by Pulse 99 96 Oximetry - Intake and Output Intake and Output: Intake & Output 05/17/16 05/18/16 05/19/16 05/20/16 06:59 06:59 06:59 06:59 Intake Total 450 790 860 600 Output Total 100 Balance 350 790 860 600 Weight 184 lb 4.903 oz 179 lb 3.773 oz 183 lb 10.321 oz Intake: Oral 450 790 860 600 Output: Urine 100 ADLs: Meal Record Start: 05/17/16 01: 52 Freq: ,,18 Status: Active Document 05/17/16 09:00 [id number] (Rec: 05/17/16 10:09 [id number] ICU-C20) Document 05/17/16 13:00 [id number] (Rec: 05/17/16 13:11 [id number] ICU-C20) Document 05/17/16 17:59 [id number] (Rec: 05/17/16 17:59 [id number] ICU-C16) Document 05/18/16 09:00 [id number] (Rec: 05/18/16 09:46 [id number] ICU-C20) Document 05/18/16 18:00 [id number] (Rec: 05/18/16 18:27 [id number] ICU-C16) Document 05/19/16 09:00 [id number] (Rec: 05/19/16 11:45 [id number] ICU-C12) Document 05/19/16 13:00 [id number] (Rec: 05/19/16 13:40 [id number] ICU-C20) Intake and Output Start: 05/17/16 01: 52 Freq: 06,14,22 Status: Active Document 05/17/16 03:30 [id number] (Rec: 05/17/16 04:17 [id number] ICU-C10) Document 05/17/16 06:00 [id number] (Rec: 05/17/16 06:03 [id number] ICU-C10) Document 05/17/16 13:53 [id number] (Rec: 05/17/16 13:53 [id number] ICU-C20) Document 05/18/16 14:00 [id number] (Rec: 05/18/16 14:33 [id number] ICU-C20) Document 05/18/16 22:00 [id number] (Rec: 05/18/16 22:18 [id number] ICU-C20) Document 05/19/16 06:00 [id number] (Rec: 05/19/16 06:10 [id number] ICU-C20) Document 05/19/16 14:00 [id number] (Rec: 05/19/16 14:18 [id number] ICU-C20) - Physical Exam General Physical Exam Comment: No acute distress; resting Eye Exam: bilateral: PERRLA, EOMI Head: Yes Normocephalic Ear Exam: bilateral ear: Normal Thyroid Function: Clinically Euthyroid Lungs and Chest: Yes: Chest Expansion Full, Chest Expansion Symetrica, Percussion Note Resonant Heart Rate and Rhythm: Normal JVP: Not Elevated [place] Beat: Non Displaced Additional Cardiovascular: Yes: [place] Beat not Displaced Abdominal Exam: Yes: Soft Results - Results Lab Results: Laboratory Results - last 24 hr 05/18/16 05/19/16 05/19/16 04:35 06:00 12:25 WBC RBC Hgb Hct MCV MCH MCHC RDW Plt Count MPV Neut % (Auto) Lymph % (Auto) [place] % (Auto) Eos % (Auto) Baso % (Auto) Absolute Neuts (auto) Absolute Lymphs (auto) Absolute Monos (auto) Absolute Eos (auto) Absolute Basos (auto) Absolute Nucleated RBC Nucleated RBC % ESR Sodium 133 131 L Potassium 5.2 H 3.0 L D Chloride 89 L 91 L Carbon Dioxide 24 30 Anion Gap 20 H 10 BUN 108 H 41 H Creatinine 10.91 H 4.43 H Est GFR ( Amer) 7.0 19.9 Est GFR (Non-Af Amer) 5.5 15.4 BUN/Creatinine Ratio 9.9 9.3 Glucose 111 H 129 H Calcium 8.3 L 8.4 L Total Bilirubin 0.40 AST 10 L ALT 22 Alkaline Phosphatase 41 C-Reactive Protein 17.65 H Total Protein 6.0 L Albumin 3.4 Globulin 2.6 Albumin/Globulin Ratio 1.3 Anti-ds DNA IgG Ab 30.3 H Complement C3 91 Complement C4 24 05/19/16 12:25 WBC 12.4 H RBC 2.41 L Hgb 8.5 L Hct 25 L MCV 105 H MCH 36 H MCHC 34 RDW 19 H Plt Count 260 MPV 9 Neut % (Auto) 76.3 Lymph % (Auto) 18.1 L [place] % (Auto) 5.3 Eos % (Auto) 0.2 Baso % (Auto) 0.1 Absolute Neuts (auto) 9.5 H Absolute Lymphs (auto) 2.2 Absolute Monos (auto) 0.7 Absolute Eos (auto) 0 Absolute Basos (auto) 0 Absolute Nucleated RBC 0.02 Nucleated RBC % 0.2 ESR 34 H Sodium Potassium Chloride Carbon Dioxide Anion Gap BUN Creatinine Est GFR ( Amer) Est GFR (Non-Af Amer) BUN/Creatinine Ratio Glucose Calcium Total Bilirubin AST ALT Alkaline Phosphatase C-Reactive Protein Total Protein Albumin Globulin Albumin/Globulin Ratio Anti-ds DNA IgG Ab Complement C3 Complement C4 Assessment - Problem List Assessment: Patient Problems DVT prophylaxis (Acute) ESRD (end-stage renal disease) due to SLE (Acute) Full code status (Acute) HTN (hypertension) (Acute) Hyperkalemia (Acute) SLE (systemic lupus erythematosus) (Acute) Third degree AV block (Acute) ESRD (end stage renal disease) on dialysis (Acute) Pericarditis (Acute) Pericarditis in diseases classified elsewhere (Acute) Pleural effusion (Acute) Plan: Lupus: complements unremarkable but DSDNA is elevated, consistent with lupus flare, which likely has contributed to a cardiomyopathy. It is unclear if Plaquenil contributed to his AV block (he only had 2 doses and he had tolerated Plaquenil well in the distant past); it is on hold and residential we should consider switching his lupus steroid sparing medication back to Cellcept (or trial of Imuran). Heart block seems to be improving Pericarditis; Overall gradually improving. Consider switching steroids (if clinically improved) to medrol 16mg daily tomorrow with a gradual taper over the next month. ESRD: tolerating dialysis History of depression: avoid prednisone
[2016-05-20] MEDS: HYDROmorphone INJ* 1 MG/ML CARPUJECT SYRINGE IV SLOW PU PRN ×5 (02:57→22:38)
[2016-05-20] MEDS: Heparin VIAL(*) 5000 UNITS/ML VIAL (FIVE THOUSAND) SUBCUT SCH ×3 (06:40→21:14)
[2016-05-20] MEDS: Sevelamer TAB* 800 MG PO SCH ×3 (08:08→18:08)
[2016-05-20] MEDS: CMCS Pantoprazole TAB (NF) 40 MG TAB PO SCH (08:09)
[2016-05-20] MEDS: Cyanocobalamin TAB* 500 MCG PO SCH (10:29)
[2016-05-20] MEDS: amLODIPine TAB* 5 MG PO SCH (10:29)
[2016-05-20] MEDS: Cholecalciferol TAB* 1000 UNITS PO SCH (10:29)
[2016-05-20] MEDS: Citalopram TAB* 40 MG PO SCH (10:30)
[2016-05-20] MEDS: methylPREDNISolone 125 MG* 2 ML VIAL IV SCH (13:54)
[2016-05-20] MEDS: Fluticasone NASAL SPRAY 50MCG* 16 gm SPRAY BTL BOTH NARES SCH (14:00)
--- NOTE | 2016-05-20 15:15 | PN ---
Subjective Date of Service: 05/20/16 Interval History: HOSPITALIST PROGRESS NOTE Patient seen and examined at bedside. He feels better today. Was able to move around more his room with no dyspnea, dizziness or lightheadedness. Denies CP or palpitations. Family History: Unchanged from Admission Social History: Unchanged from Admission Past Medical History: Unchanged from Admission Objective Active Medications: Albuterol (Ventolin 2.5 Mg/3 Ml Neb.Eva*) 2.5 mg INH Q6H PRN PRN Reason: SOB/WHEEZING Amlodipine Besylate (Norvasc Tab*) 5 mg PO DAILY [facility] Last Admin: 05/20/16 10:29 Dose: 5 mg Cholecalciferol (Vitamin D Tab*) 5,000 units PO DAILY [facility] Last Admin: 05/20/16 10:29 Dose: 5,000 units Citalopram Hydrobromide (Celexa Tab*) 40 mg PO DAILY [facility] Last Admin: 05/20/16 10:30 Dose: 40 mg Cyanocobalamin (Vitamin B12 Tab*) 500 mcg PO DAILY [facility] Last Admin: 05/20/16 10:29 Dose: 500 mcg Fluticasone Propionate (Flonase Nasal [place] 50mcg*) 1 spray BOTH NARES DAILY [facility] Last Admin: 05/20/16 14:00 Dose: 1 spray Heparin Sodium (Porcine) (Heparin Vial(*)) 5,000 units SUBCUT Q8HR [facility] Last Admin: 05/20/16 14:00 Dose: 5,000 units Hydromorphone HCl (Dilaudid Iv*) 1 mg IV SLOW PU Q4H PRN PRN Reason: PAIN Last Admin: 05/20/16 13:53 Dose: 1 mg Methylprednisolone (Medrol Tab*) 16 mg PO DAILY [facility] Nicotine Polacrilex (Nicotine Gum*) 2 mg PO Q2H PRN PRN Reason: CRAVING Last Admin: 05/18/16 17:56 Dose: 2 mg Pantoprazole Sodium (Protonix Tab (Nf)) 40 mg PO 0730 [facility] PRN Reason: Protocol Last Admin: 05/20/16 08:09 Dose: 40 mg Sevelamer Carbonate (Renvela Tab*) 800 mg PO AC [facility] Last Admin: 05/20/16 11:59 Dose: 800 mg Vital Signs Selected Entries 01/19/17 01/19/17 01/19/17 10:00 11:00 11:44 Temperature 99.2 F Heart Rate Respiratory Rate Blood Pressure 157/88 (mmHg) O2 Sat by Pulse 95 Oximetry 05/20/16 05/20/16 12:00 15:08 Temperature Heart Rate 87 Respiratory 18 Rate Blood Pressure (mmHg) O2 Sat by Pulse Oximetry Oxygen Devices in Use Now: None Appearance: Young male lying in bed in NAD. Eyes: No Scleral Icterus Ears/Nose/Mouth/Throat: Mucous Membranes Moist Neck: Trachea Midline Respiratory: Symmetrical Chest Expansion and Respiratory Effort, Clear to Auscultation Cardiovascular: NL Sounds; No Murmurs; No JVD, RRR Abdominal: NL Sounds; No Tenderness; No Distention Extremities: No Edema, - - Left arm AVF with + thrill Neurological: Alert and Oriented x 3, NL Muscle Strength and Tone Lines/Tubes/Other Access: Clean, Dry and Intact Peripheral IV Nutrition: Taking PO's Result Diagrams: 05/19/16 12:25 05/19/16 12:25 Assess/Plan/Problems-Billing Assessment: Mr. Puri is a 31yo M with of SLE, pericarditis, h/o renal tumor s/o nephrectomy , ESRD on HD, HTN, recent admission for pericarditis/pleuritis, who presented to ED with c/o fatigue and dyspnea, found to have 3rd degree AVB. - Patient Problems (1) Third degree AV block Comment: - Improving. Now in 1st degree AVB. - Could be secondary to lupus associated myocarditis vs Plaquenil side effect. - Lyme disease PCR is negative. - Rheum input appreciated - will d/c Solumedrol and start Medrol 16mg PO daily. - VS are stable. - Awaiting Cardiology input about pacer - at risk for infection so Dr. Arango would recommend utilization of antibiotic mesh if we decide to pursue pacer placement. (2) SLE (systemic lupus erythematosus) Comment: - Anti-dsDNA was negative on his prior admission but now elevated compatible with SLE flare. (3) Pericarditis Comment: - Denies CP and echo showed resolution of pericardial effusion. (4) Hyperkalemia Comment: - Resolved. - Continue to monitor. (5) ESRD (end-stage renal disease) due to SLE Comment: - Continue HD MWF. (6) HTN (hypertension) Comment: - Continue Amlodipine. (7) DVT prophylaxis Comment: - SQ heparin. (8) Full code status Status and Disposition: Inpatient for management of 3rd degree AVB in the ICU setting.
[2016-05-20] MEDS ORDERED: Temazepam CAP* 15 MG PO PRN (20:56)
[2016-05-21] MEDS: Sevelamer TAB* 800 MG PO SCH ×4 (00:32→17:15)
[2016-05-21] MEDS: methylPREDNISolone 125 MG* 2 ML VIAL IV SCH (00:32)
[2016-05-21] MEDS: HYDROmorphone INJ* 1 MG/ML CARPUJECT SYRINGE IV SLOW PU PRN (05:59)
[2016-05-21] MEDS: Heparin VIAL(*) 5000 UNITS/ML VIAL (FIVE THOUSAND) SUBCUT SCH ×2 (05:59→17:16)
[2016-05-21 06:54] LABS: BUN/Creatinine Ratio 9.6 (8-20); Calcium 8.1 mg/dL (8.6-10.3); EGFR African American 7.4 (>60); EGFR Non-African American 5.8 (>60)
--- NOTE | 2016-05-21 08:29 | PN ---
Subjective Date of Service: 05/21/16 Interval History: No chest pain, SOB. Mild L scapular pain. No new c/o. Family History: Unchanged from Admission Social History: Unchanged from Admission Past Medical History: Unchanged from Admission Objective Active Medications: Albuterol (Ventolin 2.5 Mg/3 Ml Neb.Eva*) 2.5 mg INH Q6H PRN PRN Reason: SOB/WHEEZING Amlodipine Besylate (Norvasc Tab*) 5 mg PO DAILY [facility] Last Admin: 05/20/16 10:29 Dose: 5 mg Cholecalciferol (Vitamin D Tab*) 5,000 units PO DAILY [facility] Last Admin: 05/20/16 10:29 Dose: 5,000 units Citalopram Hydrobromide (Celexa Tab*) 40 mg PO DAILY [facility] Last Admin: 05/20/16 10:30 Dose: 40 mg Cyanocobalamin (Vitamin B12 Tab*) 500 mcg PO DAILY [facility] Last Admin: 05/20/16 10:29 Dose: 500 mcg Fluticasone Propionate (Flonase Nasal [place] 50mcg*) 1 spray BOTH NARES DAILY [facility] Last Admin: 05/20/16 14:00 Dose: 1 spray Heparin Sodium (Porcine) (Heparin Vial(*)) 5,000 units SUBCUT Q8HR [facility] Last Admin: 05/21/16 05:59 Dose: 5,000 units Methylprednisolone (Medrol Tab*) 16 mg PO DAILY [facility] Nicotine Polacrilex (Nicotine Gum*) 2 mg PO Q2H PRN PRN Reason: CRAVING Last Admin: 05/18/16 17:56 Dose: 2 mg Pantoprazole Sodium (Protonix Tab (Nf)) 40 mg PO 0730 [facility] PRN Reason: Protocol Last Admin: 05/20/16 08:09 Dose: 40 mg Sevelamer Carbonate (Renvela Tab*) 800 mg PO AC [facility] Last Admin: 05/20/16 18:08 Dose: Not Given Temazepam (Restoril Cap*) 15 mg PO BEDTIME PRN PRN Reason: INSOMNIA Last Admin: 05/20/16 23:57 Dose: 15 mg Vital Signs 05/20/16 05/20/16 05/20/16 08:51 09:00 10:00 Temperature Pulse Rate 71 81 Respiratory 18 12 17 Rate Blood Pressure 170/105 160/81 (mmHg) O2 Sat by Pulse 96 95 Oximetry 05/20/16 05/20/16 05/20/16 10:34 11:00 11:44 Temperature 99.2 F Pulse Rate Respiratory 18 18 Rate Blood Pressure 157/88 (mmHg) O2 Sat by Pulse Oximetry 05/20/16 05/20/16 05/20/16 12:07 13:12 13:53 Temperature Pulse Rate Respiratory 18 18 18 Rate Blood Pressure (mmHg) O2 Sat by Pulse Oximetry 05/20/16 05/20/16 05/20/16 15:08 16:00 16:54 Temperature 98.7 F Pulse Rate Respiratory 18 18 Rate Blood Pressure (mmHg) O2 Sat by Pulse Oximetry 05/20/16 05/20/16 05/20/16 17:03 18:06 18:30 Temperature Pulse Rate Respiratory 18 16 Rate Blood Pressure 165/82 (mmHg) O2 Sat by Pulse Oximetry 05/20/16 05/20/16 05/20/16 19:50 20:00 21:00 Temperature 98.5 F Pulse Rate Respiratory 16 18 Rate Blood Pressure (mmHg) O2 Sat by Pulse Oximetry 05/20/16 05/20/16 05/20/16 21:11 22:38 23:00 Temperature Pulse Rate Respiratory 16 18 Rate Blood Pressure 150/77 (mmHg) O2 Sat by Pulse Oximetry 05/21/16 05/21/16 05/21/16 00:00 00:01 00:24 Temperature 98.6 F Pulse Rate Respiratory 18 Rate Blood Pressure 141/81 (mmHg) O2 Sat by Pulse 99 Oximetry 05/21/16 05/21/16 05/21/16 01:00 02:00 03:00 Temperature Pulse Rate Respiratory 18 16 17 Rate Blood Pressure (mmHg) O2 Sat by Pulse Oximetry 05/21/16 05/21/16 05/21/16 04:00 05:00 05:59 Temperature 97.8 F Pulse Rate Respiratory 16 17 16 Rate Blood Pressure (mmHg) O2 Sat by Pulse Oximetry 05/21/16 05/21/16 05/21/16 06:00 06:01 06:20 Temperature Pulse Rate Respiratory 17 Rate Blood Pressure 141/73 (mmHg) O2 Sat by Pulse 97 Oximetry 05/21/16 07:30 Temperature 98.3 F Pulse Rate Respiratory Rate Blood Pressure (mmHg) O2 Sat by Pulse Oximetry Oxygen Devices in Use Now: None Appearance: Alert, partly up on ICU bed. In good spirits. Looks comfortable. Eyes: No Scleral Icterus Ears/Nose/Mouth/Throat: Clear Oropharnyx, Mucous Membranes Moist Neck: NL Appearance and Movements; NL JVP, No Thyroid Enlargement, Masses Respiratory: Symmetrical Chest Expansion and Respiratory Effort, Clear to Auscultation, Clear to Percussion Extremities: No Edema, No Clubbing, Cyanosis, - Skin: No Rash or Ulcers, No Nodules or Sclerosis, - Neurological: Alert and Oriented x 3, NL Sensation Result Diagrams: 05/19/16 12:25 05/21/16 06:25 Additional Lab and Data: Lab Results 05/16/16 05/16/16 05/16/16 Range/Units 21:40 21:40 21:40 WBC 14.5 H (3.5-10.8) 10^3/ul RBC 2.67 L (4.0-5.4) 10^6/ul Hgb 9.3 L (14.0-18.0) g/dl Hct 29 L (42-52) % MCV 109 H (80-94) fL MCH 35 H (27-31) pg MCHC 32 (31-36) g/dl RDW 20 H (10.5-15) % Plt Count 328 (150-450) 10^3/ul MPV 9 (7.4-10.4) um3 Neut % (Auto) 87.4 H (38-83) % Lymph % (Auto) 6.9 L (25-47) % [place] % (Auto) 5.2 (1-9) % Eos % (Auto) 0.1 (0-6) % Baso % (Auto) 0.4 (0-2) % Absolute Neuts (auto) 12.7 H (1.5-7.7) 10^3/ul Absolute Lymphs (auto) 1.0 (1.0-4.8) 10^3/ul Absolute Monos (auto) 0.7 (0-0.8) 10^3/ul Absolute Eos (auto) 0 (0-0.6) 10^3/ul Absolute Basos (auto) 0.1 (0-0.2) 10^3/ul Absolute Nucleated RBC 0.03 10^3/ul Nucleated RBC % 0.2 Sodium 136 (133-145) mmol/L Potassium 6.9 H* (3.5-5.0) mmol/L Chloride 97 L (101-111) mmol/L Carbon Dioxide 25 (22-32) mmol/L Anion Gap 14 H (2-11) mmol/L BUN 82 H (6-24) mg/dL Creatinine 8.76 H (0.67-1.17) mg/dL Est GFR ( Amer) 9.0 (>60) Est GFR (Non-Af Amer) 7.0 (>60) BUN/Creatinine Ratio 9.4 (8-20) Glucose 104 H (70-100) mg/dL Lactic Acid 2.3 H* (0.5-2.0) mmol/L Calcium 8.8 (8.6-10.3) mg/dL Magnesium 2.0 (1.9-2.7) mg/dL Total Bilirubin 0.30 (0.2-1.0) mg/dL AST 24 (13-39) U/L ALT 27 (7-52) U/L Alkaline Phosphatase 49 (34-104) U/L Troponin I 0.04 H* (<0.04) ng/mL C-React Prot High Sens 41.83 mg/L Total Protein 6.7 (6.4-8.9) g/dL Albumin 3.7 (3.2-5.2) g/dL Globulin 3.0 (2-4) g/dL Albumin/Globulin Ratio 1.2 (1-3) TSH 1.49 (0.34-5.60) mcIU/mL Microbiology and Other Data: Microbiology 05/17/16 11:10 Aerobic Blood Culture - Preliminary Blood Venous No Growth Day 1 Anaerobic Blood Culture - Preliminary No Growth Day 1 05/17/16 03:00 Nasal Screen MRSA (PCR)([facility]) - Final Nasal Mrsa Negative Assess/Plan/Problems-Billing Assessment: Mr. Puri is a 31yo M with of SLE, pericarditis, h/o renal tumor s/o nephrectomy , ESRD on HD, HTN, recent admission for pericarditis/pleuritis, who presented to ED with c/o fatigue and dyspnea, found to have 3rd degree AVB. - Patient Problems (1) Third degree AV block Current Visit: Yes Status: Acute Code(s): I44.2 - ATRIOVENTRICULAR BLOCK, COMPLETE SNOMED Code(s): 59541182 Comment: -Resolved. - Could be secondary to lupus associated myocarditis vs Plaquenil side effect. - Lyme disease PCR is negative. Continue Medrol 16 mg PO daily. - Tele. (2) SLE (systemic lupus erythematosus) Current Visit: Yes Status: Acute Code(s): M32.9 - SYSTEMIC LUPUS ERYTHEMATOSUS, UNSPECIFIED SNOMED Code(s): 67199094 Comment: - Anti-dsDNA was negative on his prior admission but now elevated compatible with SLE flare. Methylprednisolone 16 mg to taper slowly over a month. (3) ESRD (end-stage renal disease) due to SLE Current Visit: Yes Status: Acute Code(s): M32.14 - GLOMERULAR DISEASE IN SYSTEMIC LUPUS ERYTHEMATOSUS; N18.6 - END STAGE RENAL DISEASE SNOMED Code(s): 95787388 Comment: - Continue HD MWF. His outpt schedule in [place] [facility]. (4) HTN (hypertension) Current Visit: Yes Status: Acute Code(s): I10 - ESSENTIAL (PRIMARY) HYPERTENSION SNOMED Code(s): 99697847 Comment: - Continue Amlodipine. Status and Disposition: Inpatient for management of 3rd degree AVB in the ICU setting.
[2016-05-21] MEDS: Citalopram TAB* 40 MG PO SCH (09:22)
[2016-05-21] MEDS: Cholecalciferol TAB* 1000 UNITS PO SCH (09:22)
[2016-05-21] MEDS: Cyanocobalamin TAB* 500 MCG PO SCH (09:22)
[2016-05-21] MEDS: Fluticasone NASAL SPRAY 50MCG* 16 gm SPRAY BTL BOTH NARES SCH (09:22)
[2016-05-21] MEDS: CMCS Pantoprazole TAB (NF) 40 MG TAB PO SCH (09:23)
--- NOTE | 2016-05-21 10:21 | PN ---
Subjective Date of Service: 05/21/16 Interval History: Admission Date: 05/16/16 Hospitalist service f/u heart block Patient feels good today, stretching and walking around [place] No cp, lighteadedness, palpitations or dyspnea tele NSR, narrowing 1avb. EKG this AM NSR, CA interval ~ 220 per my review Medications Active Medications: Albuterol (Ventolin 2.5 Mg/3 Ml Neb.Eva*) 2.5 mg INH Q6H PRN PRN Reason: SOB/WHEEZING Amlodipine Besylate (Norvasc Tab*) 5 mg PO DAILY [facility] Last Admin: 05/20/16 10:29 Dose: 5 mg Cholecalciferol (Vitamin D Tab*) 5,000 units PO DAILY [facility] Last Admin: 05/21/16 09:22 Dose: 5,000 units Citalopram Hydrobromide (Celexa Tab*) 40 mg PO DAILY [facility] Last Admin: 05/21/16 09:22 Dose: 40 mg Cyanocobalamin (Vitamin B12 Tab*) 500 mcg PO DAILY [facility] Last Admin: 05/21/16 09:22 Dose: 500 mcg Fluticasone Propionate (Flonase Nasal [place] 50mcg*) 1 spray BOTH NARES DAILY [facility] Last Admin: 05/21/16 09:22 Dose: 1 spray Heparin Sodium (Porcine) (Heparin Vial(*)) 5,000 units SUBCUT Q8HR [facility] Last Admin: 05/21/16 05:59 Dose: 5,000 units Methylprednisolone (Medrol Tab*) 16 mg PO DAILY [facility] Nicotine Polacrilex (Nicotine Gum*) 2 mg PO Q2H PRN PRN Reason: CRAVING Last Admin: 05/18/16 17:56 Dose: 2 mg Pantoprazole Sodium (Protonix Tab (Nf)) 40 mg PO 0730 [facility] PRN Reason: Protocol Last Admin: 05/21/16 09:23 Dose: 40 mg Sevelamer Carbonate (Renvela Tab*) 800 mg PO AC [facility] Last Admin: 05/21/16 09:22 Dose: 800 mg Temazepam (Restoril Cap*) 15 mg PO BEDTIME PRN PRN Reason: INSOMNIA Last Admin: 05/20/16 23:57 Dose: 15 mg Objective Vital Signs: Temp Pulse Resp BP Pulse Ox 98.3 F 81 17 141/73 97 05/21/16 07:30 05/20/16 10:00 05/21/16 06:00 05/21/16 06:01 05/21/16 06:20 Oxygen Devices in Use Now: None Appearance: chronically ill appearing but not distressed, lying at 10 degrees. Getting dialized. Eyes: PERRLA Ears/Nose/Mouth/Throat: Clear Oropharnyx, Mucous Membranes Moist Neck: NL Appearance and Movements; NL JVP Respiratory: Symmetrical Chest Expansion and Respiratory Effort, Clear to Auscultation Cardiovascular: RRR, No Edema, - Abdominal: NL Sounds; No Tenderness; No Distention Extremities: No Edema Skin: No Rash or Ulcers Neurological: Alert and Oriented x 3 Laboratory Results: 05/19/16 12:25 05/21/16 06:25 Total Bilirubin 0.40 mg/dL (0.2-1.0) 05/19/16 12:25 AST 10 U/L (13-39) L 05/19/16 12:25 ALT 22 U/L (7-52) 05/19/16 12:25 Alkaline Phosphatase 41 U/L (34-104) 05/19/16 12:25 Total Protein 6.0 g/dL (6.4-8.9) L 05/19/16 12:25 Albumin 3.4 g/dL (3.2-5.2) 05/19/16 12:25 Globulin 2.6 g/dL (2-4) 05/19/16 12:25 Albumin/Globulin Ratio 1.3 (1-3) 05/19/16 12:25 TSH 1.49 mcIU/mL (0.34-5.60) 05/16/16 21:40 05/17/16 11:10 Troponin I 0.07 H* Diagnostic Imaging: TTE 05/17/2016: Mild LV dilation, moderate LVH, LVEF 55-60%, minimal septal bounce, RV mildly dilated with low normal RV funciton, mild MR, moderate TR. Since prior study from 05/03/2016 moderate pericardial effusion resolved. EKG Data: EKG 05/17/2016: NSR rate ~ 100 bpm, complete AV block, stable junctional escape rhythm ~ 36 bpm EKG 05/02/2016: NSR 85 bpm, normal AV conduction Monitor 05/19/16: SR 1st degree AVB with occasional 2nd degree AVB Type 1. Monitor 05/21/2016: NSR, borderline 1AVB Assessment/Plan Jose Enrique Puri is a 31 year old man with lupus and ESRD admitted with symptomatic complete heart block with a stable junctional escape in the setting of high dose BB use (100 mg toprol), hyperkalemia, recent plaquenil initiation and lupus flare. High degree heart block has resolved with stopping plaquenil, high dose IV steroids, stopping beta-ruby and correcting potassium. Points of Discussion: - I would recommend to aggressively treat and prevent hyperkalemia (patient had medicine for this previously unsure what it was, was not kayexylate), avoid plaquenil (may have been related), avoid rate lowering medications, and treat lupus to try to prevent flare as per Rheumatology. I do not appreciate an indication for a pacemaker at this time, complete heart block in the setting of multiple potential reversible causes now resolved.
[2016-05-21] MEDS: oxyCODONE TAB* 5 MG TAB PO PRN ×2 (12:03→17:49)
[2016-05-21] MEDS ORDERED: Epoetin Alfa* 3,000 UNITS/ML VIAL IV ONE (14:00)
[2016-05-21] MEDS ORDERED: Epoetin Alfa* 2,000 UNITS/ML VIAL IV ONE (14:00)
[2016-05-21] MEDS ORDERED: Epoetin Alfa* 10,000 UNITS/ML VIAL IV ONE (14:00)
[2016-05-21] MEDS: methylPREDNISolone TAB* 4 MG PO SCH (17:15)
[2016-05-21] MEDS: amLODIPine TAB* 5 MG PO SCH (17:16)
--- NOTE | 2016-05-21 19:57 | PN ---
Subjective - Subjective History: Lupus Overall seems to be improving; however DSDNA was positive. On retrospect, resuming Cellcept as a steroid sparing medication may help to prevent flares as DSDNA has become positive since being off of it; would avoid Plaquenil given that he had a heart block soon after resuming Plaquenil. Steroid taper: would taper gradually over the next 3 to 4 weeks. End stage renal disease: follow up with cardiology Hyperkalemia: improved Pericarditis: seems to be improved Active Problems: Active Problems DVT prophylaxis (Acute) [id number] - SQ heparin. 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 His outpt schedule in [facility] in [facility]. Full code status (Acute) Z78.9 HTN (hypertension) (Acute) I10 - Continue Amlodipine. Hyperkalemia (Acute) E87.5 - Resolved. - Continue to monitor. Pericarditis (Acute) I31.9 - Denies CP and echo showed resolution of pericardial effusion. SLE (systemic lupus erythematosus) (Acute) M32.9 - Anti-dsDNA was negative on his prior admission but now elevated compatible with SLE flare. Methylprednisolone 16 mg to taper slowly over a month. Third degree AV block (Acute) I44.2 -Resolved. - Could be secondary to lupus associated myocarditis vs Plaquenil side effect. - Lyme disease PCR is negative. Continue Medrol 16 mg PO daily. - Tele. Current Medications: Current Medications Albuterol (Ventolin 2.5 Mg/3 Ml Neb.Kashif*) 2.5 mg INH Q6H PRN PRN Reason: SOB/WHEEZING Amlodipine Besylate (Norvasc Tab*) 5 mg PO DAILY [facility] Last Admin: 05/21/16 17:16 Dose: 5 mg Cholecalciferol (Vitamin D Tab*) 5,000 units PO DAILY [facility] Last Admin: 05/21/16 09:22 Dose: 5,000 units Citalopram Hydrobromide (Celexa Tab*) 40 mg PO DAILY [facility] Last Admin: 05/21/16 09:22 Dose: 40 mg Cyanocobalamin (Vitamin B12 Tab*) 500 mcg PO DAILY [facility] Last Admin: 05/21/16 09:22 Dose: 500 mcg Fluticasone Propionate (Flonase Nasal [place] 50mcg*) 1 spray BOTH NARES DAILY [facility] Last Admin: 05/21/16 09:22 Dose: 1 spray Heparin Sodium (Porcine) (Heparin Vial(*)) 5,000 units SUBCUT Q8HR [facility] Last Admin: 05/21/16 17:16 Dose: 5,000 units Methylprednisolone (Medrol Tab*) 16 mg PO DAILY [facility] Last Admin: 05/21/16 17:15 Dose: 16 mg Nicotine Polacrilex (Nicotine Gum*) 2 mg PO Q2H PRN PRN Reason: CRAVING Last Admin: 05/18/16 17:56 Dose: 2 mg Oxycodone HCl (Roxycodone Tab*) 5 mg PO Q4H PRN PRN Reason: PAIN Last Admin: 05/21/16 17:49 Dose: 5 mg Pantoprazole Sodium (Protonix Tab (Nf)) 40 mg PO 0730 [facility] PRN Reason: Protocol Last Admin: 05/21/16 09:23 Dose: 40 mg Sevelamer Carbonate (Renvela Tab*) 800 mg PO AC [facility] Last Admin: 05/21/16 17:15 Dose: 800 mg Temazepam (Restoril Cap*) 15 mg PO BEDTIME PRN PRN Reason: INSOMNIA Last Admin: 05/20/16 23:57 Dose: 15 mg - Review of Systems Constitutional Symptoms: Yes: Weight Gain, No: Weight Loss, Weakness, Fatigue Dermatology: Normal: Yes, Rash: No, Skin Lesions: No HEENT: Yes Normal Eyes: Positive: Normal Pulmonary: Positive: Normal Cardiology: Positive: Normal Gastroenterology: Positive: Normal Genital - Urinary: Positive: Normal Musculoskeletal: Positive: Joint Pain - He has had some persistent left upper scapular pain Endocrinology: Positive: Normal Hematologic/Lymphatic: Positive: Anemia Neurology: Positive: Normal Psychiatry: Positive: Normal Home Medications: Home Medications Medication Instructions Recorded Confirmed Type Albuterol 2.5MG/3ML (0.083%)* 2.5 mg INH Q6H PRN 05/02/16 05/16/16 History [Ventolin 2.5 MG/3 ML NEB.KASHIF*] Cholecalciferol TAB* [Vitamin D 5,000 units PO DAILY 05/02/16 05/16/16 History TAB*] Citalopram TAB* [Celexa TAB*] 40 mg PO DAILY 05/02/16 05/16/16 History Cyanocobalamin TAB* [Vitamin B12 500 mcg PO DAILY 05/02/16 05/16/16 History TAB*] Fluticasone NASAL SPRAY 50MCG* 50 mcg BOTH NARES DAILY 05/02/16 05/16/16 History [Flonase NASAL SPRAY 50MCG*] Lansoprazole [Prevacid] 30 mg PO DAILY 05/02/16 05/16/16 History Metoprolol Tartrate TAB* 100 mg PO DAILY 05/02/16 05/16/16 History [Lopressor TAB*] amLODIPine TAB* [Norvasc TAB*] 5 mg PO DAILY 05/02/16 05/16/16 History Allergies: Allergies Allergy/AdvReac Type Severity Reaction Status Date / Time Hydralazine Allergy Shortness Verified 05/02/16 10:00 of Breath Prednisone AdvReac Hallucinati Verified 05/20/16 15:13 ons Objective - Vital Signs Vital Signs: Vital Signs 05/20/16 05/20/16 05/20/16 20:00 21:00 21:11 Temperature 98.5 F Pulse Rate Respiratory 18 Rate Blood Pressure 150/77 (mmHg) O2 Sat by Pulse Oximetry 05/20/16 05/20/16 05/21/16 22:38 23:00 00:00 Temperature Pulse Rate Respiratory 16 18 18 Rate Blood Pressure (mmHg) O2 Sat by Pulse Oximetry 05/21/16 05/21/16 05/21/16 00:01 00:24 01:00 Temperature 98.6 F Pulse Rate Respiratory 18 Rate Blood Pressure 141/81 (mmHg) O2 Sat by Pulse 99 Oximetry 05/21/16 05/21/16 05/21/16 02:00 03:00 04:00 Temperature 97.8 F Pulse Rate Respiratory 16 17 16 Rate Blood Pressure (mmHg) O2 Sat by Pulse Oximetry 05/21/16 05/21/16 05/21/16 05:00 05:59 06:00 Temperature Pulse Rate Respiratory 17 16 17 Rate Blood Pressure (mmHg) O2 Sat by Pulse Oximetry 05/21/16 05/21/16 05/21/16 06:01 06:20 07:00 Temperature Pulse Rate Respiratory 16 Rate Blood Pressure 141/73 (mmHg) O2 Sat by Pulse 97 Oximetry 05/21/16 05/21/16 05/21/16 07:30 08:00 09:00 Temperature 98.3 F Pulse Rate Respiratory 16 16 Rate Blood Pressure (mmHg) O2 Sat by Pulse Oximetry 05/21/16 05/21/16 05/21/16 10:00 12:18 17:16 Temperature 97.8 F 98.4 F Pulse Rate 80 98 Respiratory 16 16 16 Rate Blood Pressure 156/84 145/81 (mmHg) O2 Sat by Pulse 100 97 Oximetry 05/21/16 17:49 Temperature Pulse Rate Respiratory 16 Rate Blood Pressure (mmHg) O2 Sat by Pulse Oximetry - Intake and Output Intake and Output: Intake & Output 05/19/16 05/20/16 05/21/16 05/22/16 06:59 06:59 06:59 06:59 Intake Total 860 1520 1320 0 Output Total 0 Balance 860 1520 1320 0 Weight 183 lb 10.321 oz 186 lb 15.232 oz 192 lb 14.472 oz Intake: Oral 860 1520 1320 0 Output: Urine 0 Other: Estimated Void Small Small # Voids 2 1 ADLs: Meal Record Start: 05/17/16 01: 52 Freq: 09,13,18 Status: Complete Document 05/17/16 09:00 [id number] (Rec: 05/17/16 10:09 [id number] ICU-C20) Document 05/17/16 13:00 [id number] (Rec: 05/17/16 13:11 [id number] ICU-C20) Document 05/17/16 17:59 [id number] (Rec: 05/17/16 17:59 [id number] ICU-C16) Document 05/18/16 09:00 [id number] (Rec: 05/18/16 09:46 [id number] ICU-C20) Document 05/18/16 18:00 [id number] (Rec: 05/18/16 18:27 [id number] ICU-C16) Document 05/19/16 09:00 [id number] (Rec: 05/19/16 11:45 [id number] ICU-C12) Document 05/19/16 13:00 [id number] (Rec: 05/19/16 13:40 [id number] ICU-C20) Document 05/19/16 18:00 [id number] (Rec: 05/19/16 18:57 [id number] ICU-C12) Document 05/20/16 10:34 [id number] (Rec: 05/20/16 10:35 [id number] ICU-C16) Document 05/20/16 15:09 [id number] (Rec: 05/20/16 15:09 [id number] ICU-C16) Document 05/20/16 18:07 [id number] (Rec: 05/20/16 18:07 [id number] ICU-C16) Document 05/21/16 09:00 [id number] (Rec: 05/21/16 10:08 [id number] ICU-C10) ADLs: Meal Record Start: 05/21/16 10: 31 Freq: DAILY@0900,1400,1800 Status: Active Created 05/21/16 10:31 [id number] (Rec: 05/21/16 10:31 [id number] ICU-C16) Document 05/21/16 13:45 [id number] (Rec: 05/21/16 13:46 [id number] TELE-C10) Intake and Output Start: 05/17/16 01: 52 Freq: 06,14,22 Status: Complete Document 05/17/16 03:30 [id number] (Rec: 05/17/16 04:17 [id number] ICU-C10) Document 05/17/16 06:00 [id number] (Rec: 05/17/16 06:03 [id number] ICU-C10) Document 05/17/16 13:53 [id number] (Rec: 05/17/16 13:53 [id number] ICU-C20) Document 05/18/16 14:00 [id number] (Rec: 05/18/16 14:33 [id number] ICU-C20) Document 05/18/16 22:00 [id number] (Rec: 05/18/16 22:18 [id number] ICU-C20) Document 05/19/16 06:00 [id number] (Rec: 05/19/16 06:10 [id number] ICU-C20) Document 05/19/16 14:00 [id number] (Rec: 05/19/16 14:18 [id number] ICU-C20) Document 05/19/16 22:00 [id number] (Rec: 05/19/16 22:44 [id number] ICU-C16) Document 05/20/16 06:00 [id number] (Rec: 05/20/16 06:49 [id number] ICU-C16) Document 05/20/16 15:08 [id number] (Rec: 05/20/16 15:09 [id number] ICU-C16) Document 05/20/16 22:00 [id number] (Rec: 05/20/16 22:45 [id number] ICU-C10) Document 05/21/16 06:00 [id number] (Rec: 05/21/16 06:33 ABQ2419 ICU-C06) Intake and Output Start: 05/21/16 10: 31 Freq: DAILY@0600,1400,2200 Status: Active Created 05/21/16 10:31 [id number] (Rec: 05/21/16 10:31 [id number] ICU-C16) Document 05/21/16 13:45 [id number] (Rec: 05/21/16 13:46 [id number] TELE-C10) - Physical Exam General Physical Exam Comment: No acute distress; lying in bed supine Eye Exam: bilateral: PERRLA Ear Exam: bilateral ear: Normal Nasal Exam: Bilateral: Normal Endocrine: Yes Central Obesity Lungs and Chest: Yes: Chest Expansion Full, Chest Expansion Symetrica Heart Rate and Rhythm: Normal JVP: Not Elevated [place] Beat: Non Displaced Additional Cardiovascular: Yes: [place] Beat not Displaced Abdominal Exam: Yes: Soft - Rheumotological System Additional Musculoskeletal: Kyphosis - There is no synovitis or joint tenderness - Extremities Hematology: No Supraclavicular Adenopathy, No Axillary Adenopathy, No Inguinal Adenopathy Limbs: Normal Power - Neuro Orientation: A/O x3 Psychiatric: Normal Speech: Normal Results - Results Lab Results: Laboratory Results - last 24 hr 05/21/16 06:25 Sodium 131 L Potassium 5.0 D Chloride 93 L Carbon Dioxide 24 Anion Gap 14 H BUN 100 H Creatinine 10.37 H Est GFR ( Amer) 7.4 Est GFR (Non-Af Amer) 5.8 BUN/Creatinine Ratio 9.6 Glucose 110 H Calcium 8.1 L Assessment - Problem List Assessment: Patient Problems DVT prophylaxis (Acute) 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 On retrospect, resuming Cellcept as a steroid sparing medication may help to prevent flares as DSDNA has become positive since being off of it; would avoid Plaquenil given that he had a heart block soon after resuming Plaquenil. Steroid taper: would taper gradually over the next 3 to 4 weeks. End stage renal disease: follow up with cardiology Hyperkalemia: improved Pericarditis: seems to be improved Coordination of Care: Yes
[2016-05-22] MEDS: Mycophenolate Mofetil CAP(*) 250 MG PO SCH ×2 (00:30→08:17)
[2016-05-22] MEDS: Heparin VIAL(*) 5000 UNITS/ML VIAL (FIVE THOUSAND) SUBCUT SCH ×2 (00:31→05:23)
[2016-05-22] MEDS: oxyCODONE TAB* 5 MG TAB PO PRN ×2 (00:37→09:51)
[2016-05-22 07:57] VITALS: BP 139/83
[2016-05-22] MEDS: Cyanocobalamin TAB* 500 MCG PO SCH (08:16)
[2016-05-22] MEDS: Cholecalciferol TAB* 1000 UNITS PO SCH (08:16)
[2016-05-22] MEDS: Sevelamer TAB* 800 MG PO SCH ×2 (08:16→12:29)
[2016-05-22] MEDS: amLODIPine TAB* 5 MG PO SCH (08:17)
[2016-05-22] MEDS: Citalopram TAB* 40 MG PO SCH (08:17)
[2016-05-22] MEDS: methylPREDNISolone TAB* 4 MG PO SCH (09:50)
[2016-05-22] MEDS: Fluticasone NASAL SPRAY 50MCG* 16 gm SPRAY BTL BOTH NARES SCH (09:50)
[2016-05-22] MEDS: CMCS Pantoprazole TAB (NF) 40 MG TAB PO SCH (09:52)
--- NOTE | 2016-05-22 10:24 | PN ---
Subjective - Subjective Reason for Note: Progress Note History: Myopericarditis with complications of AV block Lupus Elevated DSDNA Overall, Mr. Puri seems improved. He did express concern about potential side effects of steroids contributing to weight gain and anxiety/insomnia and generalized discomfort. He is tolerating Cellcept well, so I recommend increasing Cellcept up to his prior baseline dose of 1000mg daily. Medrol can be decreased to 12mg daily, with goal of gradual taper. Plaquenil is on hold in light of his recent heart block, although he tolerated this medication well in the distant past. ESRD: continue dialysis Shoulder pain: Improved with pain medication; seems myofascial in distribution. He attributed some discomfort to fluid retention. Active Problems: Active Problems DVT prophylaxis (Acute) [id number] - SQ heparin. 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 His outpt schedule in [place] in [facility]. Full code status (Acute) Z78.9 HTN (hypertension) (Acute) I10 - Continue Amlodipine. Hyperkalemia (Acute) E87.5 - Resolved. - Continue to monitor. Pericarditis (Acute) I31.9 - Denies CP and echo showed resolution of pericardial effusion. SLE (systemic lupus erythematosus) (Acute) M32.9 - Anti-dsDNA was negative on his prior admission but now elevated compatible with SLE flare. Methylprednisolone 16 mg to taper slowly over a month. Third degree AV block (Acute) I44.2 -Resolved. - Could be secondary to lupus associated myocarditis vs Plaquenil side effect. - Lyme disease PCR is negative. Continue Medrol 16 mg PO daily. - Tele. Current Medications: Current Medications Albuterol (Ventolin 2.5 Mg/3 Ml Neb.Kashif*) 2.5 mg INH Q6H PRN PRN Reason: SOB/WHEEZING Amlodipine Besylate (Norvasc Tab*) 5 mg PO DAILY [facility] Last Admin: 05/22/16 08:17 Dose: 5 mg Cholecalciferol (Vitamin D Tab*) 5,000 units PO DAILY [facility] Last Admin: 05/22/16 08:16 Dose: 5,000 units Citalopram Hydrobromide (Celexa Tab*) 40 mg PO DAILY [facility] Last Admin: 05/22/16 08:17 Dose: 40 mg Cyanocobalamin (Vitamin B12 Tab*) 500 mcg PO DAILY [facility] Last Admin: 05/22/16 08:16 Dose: 500 mcg Fluticasone Propionate (Flonase Nasal [place] 50mcg*) 1 spray BOTH NARES DAILY [facility] Last Admin: 05/22/16 09:50 Dose: 1 spray Heparin Sodium (Porcine) (Heparin Vial(*)) 5,000 units SUBCUT Q8HR [facility] Last Admin: 05/22/16 05:23 Dose: 5,000 units Methylprednisolone (Medrol Tab*) 16 mg PO DAILY [facility] Last Admin: 05/22/16 09:50 Dose: 16 mg Mycophenolate Mofetil (Cellcept Cap(*)) 250 mg PO BID [facility] Last Admin: 05/22/16 08:17 Dose: 250 mg Nicotine Polacrilex (Nicotine Gum*) 2 mg PO Q2H PRN PRN Reason: CRAVING Last Admin: 05/18/16 17:56 Dose: 2 mg Oxycodone HCl (Roxycodone Tab*) 5 mg PO Q4H PRN PRN Reason: PAIN Last Admin: 05/22/16 09:51 Dose: 5 mg Pantoprazole Sodium (Protonix Tab (Nf)) 40 mg PO 0730 [facility] PRN Reason: Protocol Last Admin: 05/22/16 09:52 Dose: 40 mg Sevelamer Carbonate (Renvela Tab*) 800 mg PO AC [facility] Last Admin: 05/22/16 08:16 Dose: 800 mg Temazepam (Restoril Cap*) 15 mg PO BEDTIME PRN PRN Reason: INSOMNIA Last Admin: 05/20/16 23:57 Dose: 15 mg - Review of Systems General Comments: Feels that there is fluid retention in the upper extremity Constitutional Symptoms: Yes: Weight Gain, Fatigue, No: Weight Loss, Fever, Unexplained Falls Dermatology: Normal: Yes HEENT: Yes Normal Eyes: Positive: Normal Thyroid: Positive: Normal Pulmonary: Positive: Normal Cardiology: Positive: Normal, Edema Gastroenterology: Positive: Normal Musculoskeletal: Positive: Joint Stiffness Endocrinology: Positive: Obesity Hematologic/Lymphatic: Positive: Anemia Neurology: Positive: Normal Psychiatry: Positive: Anxiety Allergic/Immunologic: Positive: Immunocompromise Home Medications: Home Medications Medication Instructions Recorded Confirmed Type Albuterol 2.5MG/3ML (0.083%)* 2.5 mg INH Q6H PRN 05/02/16 05/16/16 History [Ventolin 2.5 MG/3 ML NEB.KASHIF*] Cholecalciferol TAB* [Vitamin D 5,000 units PO DAILY 05/02/16 05/16/16 History TAB*] Citalopram TAB* [Celexa TAB*] 40 mg PO DAILY 05/02/16 05/16/16 History Cyanocobalamin TAB* [Vitamin B12 500 mcg PO DAILY 05/02/16 05/16/16 History TAB*] Fluticasone NASAL SPRAY 50MCG* 50 mcg BOTH NARES DAILY 05/02/16 05/16/16 History [Flonase NASAL SPRAY 50MCG*] Lansoprazole [Prevacid] 30 mg PO DAILY 05/02/16 05/16/16 History amLODIPine TAB* [Norvasc TAB*] 5 mg PO DAILY 05/02/16 05/16/16 History Allergies: Allergies Allergy/AdvReac Type Severity Reaction Status Date / Time Hydralazine Allergy Shortness Verified 05/02/16 10:00 of Breath Prednisone AdvReac Hallucinati Verified 05/20/16 15:13 ons Objective - Vital Signs Vital Signs: Vital Signs 05/21/16 05/21/16 05/21/16 12:18 17:16 17:49 Temperature 97.8 F 98.4 F Pulse Rate 80 98 Respiratory 16 16 16 Rate Blood Pressure 156/84 145/81 (mmHg) O2 Sat by Pulse 100 97 Oximetry 05/21/16 05/21/16 05/21/16 19:49 20:00 20:19 Temperature 98.4 F Pulse Rate 86 Respiratory 16 16 16 Rate Blood Pressure 155/86 (mmHg) O2 Sat by Pulse 94 Oximetry 05/21/16 05/22/16 05/22/16 23:24 00:37 02:37 Temperature 98.2 F Pulse Rate 82 Respiratory 16 16 16 Rate Blood Pressure 139/80 (mmHg) O2 Sat by Pulse 93 Oximetry 05/22/16 05/22/16 05/22/16 03:36 07:17 09:51 Temperature 98.0 F 98.1 F Pulse Rate 77 76 Respiratory 16 16 18 Rate Blood Pressure 138/55 139/83 (mmHg) O2 Sat by Pulse 97 Oximetry - Intake and Output Intake and Output: Intake & Output 05/20/16 05/21/16 05/22/16 05/23/16 06:59 06:59 06:59 06:59 Intake Total 1520 1320 120 Output Total 0 Balance 1520 1320 120 Weight 186 lb 15.232 oz 192 lb 14.472 oz Intake: Oral 1520 1320 120 Output: Urine 0 Other: Estimated Void Small Small Medium Date of Last Bowel 05/21/16 Movement # Bowel Movements 0 # Voids 2 1 3 ADLs: Meal Record Start: 05/17/16 01: 52 Freq: 09,13,18 Status: Complete Document 05/17/16 09:00 [id number] (Rec: 05/17/16 10:09 [id number] ICU-C20) Document 05/17/16 13:00 [id number] (Rec: 05/17/16 13:11 [id number] ICU-C20) Document 05/17/16 17:59 [id number] (Rec: 05/17/16 17:59 [id number] ICU-C16) Document 05/18/16 09:00 [id number] (Rec: 05/18/16 09:46 [id number] ICU-C20) Document 05/18/16 18:00 RFL5419 (Rec: 05/18/16 18:27 [id number] ICU-C16) Document 05/19/16 09:00 [id number] (Rec: 05/19/16 11:45 [id number] ICU-C12) Document 05/19/16 13:00 [id number] (Rec: 05/19/16 13:40 [id number] ICU-C20) Document 05/19/16 18:00 HML6656 (Rec: 05/19/16 18:57 [id number] ICU-C12) Document 05/20/16 10:34 [id number] (Rec: 05/20/16 10:35 [id number] ICU-C16) Document 05/20/16 15:09 [id number] (Rec: 05/20/16 15:09 [id number] ICU-C16) Document 05/20/16 18:07 [id number] (Rec: 05/20/16 18:07 [id number] ICU-C16) Document 05/21/16 09:00 YYZ6554 (Rec: 05/21/16 10:08 [id number] ICU-C10) ADLs: Meal Record Start: 05/21/16 10: 31 Freq: DAILY@0900,1400,1800 Status: Active Created 05/21/16 10:31 [id number] (Rec: 05/21/16 10:31 UGP1701 ICU-C16) Document 05/21/16 13:45 [id number] (Rec: 05/21/16 13:46 AQE0418 TELE-C10) Document 05/21/16 18:00 AER2359 (Rec: 05/21/16 22:06 [id number] TELE-C32) Intake and Output Start: 05/17/16 01: 52 Freq: 06,14,22 Status: Complete Document 05/17/16 03:30 [id number] (Rec: 05/17/16 04:17 [id number] ICU-C10) Document 05/17/16 06:00 [id number] (Rec: 05/17/16 06:03 [id number] ICU-C10) Document 05/17/16 13:53 [id number] (Rec: 05/17/16 13:53 HBY5211 ICU-C20) Document 05/18/16 14:00 IOW3096 (Rec: 05/18/16 14:33 [id number] ICU-C20) Document 05/18/16 22:00 NYE3285 (Rec: 05/18/16 22:18 HPJ5592 ICU-C20) Document 05/19/16 06:00 FFT7215 (Rec: 05/19/16 06:10 [id number] ICU-C20) Document 05/19/16 14:00 QQF5450 (Rec: 05/19/16 14:18 [id number] ICU-C20) Document 05/19/16 22:00 [id number] (Rec: 05/19/16 22:44 [id number] ICU-C16) Document 05/20/16 06:00 UZE5199 (Rec: 05/20/16 06:49 [id number] ICU-C16) Document 05/20/16 15:08 FOA7013 (Rec: 05/20/16 15:09 [id number] ICU-C16) Document 05/20/16 22:00 ONW2682 (Rec: 05/20/16 22:45 CSF8769 ICU-C10) Document 05/21/16 06:00 EQF1039 (Rec: 05/21/16 06:33 [id number] ICU-C06) Intake and Output Start: 05/21/16 10: 31 Freq: DAILY@0600,1400,2200 Status: Active Created 05/21/16 10:31 [id number] (Rec: 05/21/16 10:31 [id number] ICU-C16) Document 05/21/16 13:45 TTF5851 (Rec: 05/21/16 13:46 NFJ6922 TELE-C10) Document 05/21/16 22:00 QIK5265 (Rec: 05/21/16 22:07 UJH1762 TELE-C32) Document 05/22/16 06:00 [id number] (Rec: 05/22/16 06:26 [id number] TELE-C34) - Physical Exam General Physical Exam Comment: No acute distress, mildly cushingoid in the upper extremities Eye Exam: bilateral: PERRLA, EOMI Head: Yes Normocephalic Throat/Oropharyx Exam: Bilateral: Normal Thyroid Function: Clinically Euthyroid Lungs and Chest: Yes: Chest Expansion Full, Chest Expansion Symetrica, Percussion Note Resonant Heart Rate and Rhythm: Bradycardia JVP: Not Elevated [place] Beat: Non Displaced Additional Cardiovascular: Yes: [place] Beat not Displaced, Normal Heart Sounds Abdominal Exam: Yes: Soft - Rheumotological System Additional Musculoskeletal: Muscle Tenderness - Minimal left parathoracic tenderness but shoulders have full range of motion - Extremities Dorsalis Pedis Pulses: Bilateral Normal Cranial Nerves II-XII Intact: Yes Limbs: Normal Power - Neuro Psychiatric: Normal Speech: Normal Assessment - Problem List Assessment: Patient Problems DVT prophylaxis (Acute) 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 Puri seems improved. He did express concern about potential side effects of steroids contributing to weight gain and anxiety/insomnia and generalized discomfort. He is tolerating Cellcept well, so I recommend increasing Cellcept up to his prior baseline dose of 1000mg daily. Medrol can be decreased to 12mg daily, with goal of gradual taper. Plaquenil is on hold in light of his recent heart block, although he tolerated this medication well in the distant past. ESRD: continue dialysis Shoulder pain: Improved with pain medication; seems myofascial in distribution. He attributed some discomfort to fluid retention. Hyperkalemia: being followed
--- NOTE | 2016-05-22 10:25 | DCNOTE ---
Subjective Date of Service: 05/22/16 Interval History: c/o mild abdominal bloating and mild L shoulder pain. Family History: Unchanged from Admission Social History: Unchanged from Admission Past Medical History: Unchanged from Admission Objective Active Medications: Albuterol (Ventolin 2.5 Mg/3 Ml Neb.Eva*) 2.5 mg INH Q6H PRN PRN Reason: SOB/WHEEZING Amlodipine Besylate (Norvasc Tab*) 5 mg PO DAILY [facility] Last Admin: 05/22/16 08:17 Dose: 5 mg Cholecalciferol (Vitamin D Tab*) 5,000 units PO DAILY [facility] Last Admin: 05/22/16 08:16 Dose: 5,000 units Citalopram Hydrobromide (Celexa Tab*) 40 mg PO DAILY [facility] Last Admin: 05/22/16 08:17 Dose: 40 mg Cyanocobalamin (Vitamin B12 Tab*) 500 mcg PO DAILY [facility] Last Admin: 05/22/16 08:16 Dose: 500 mcg Fluticasone Propionate (Flonase Nasal Brusly 50mcg*) 1 spray BOTH NARES DAILY [facility] Last Admin: 05/22/16 09:50 Dose: 1 spray Heparin Sodium (Porcine) (Heparin Vial(*)) 5,000 units SUBCUT Q8HR [facility] Last Admin: 05/22/16 05:23 Dose: 5,000 units Methylprednisolone (Medrol Tab*) 16 mg PO DAILY [facility] Last Admin: 05/22/16 09:50 Dose: 16 mg Mycophenolate Mofetil (Cellcept Cap(*)) 250 mg PO BID [facility] Last Admin: 05/22/16 08:17 Dose: 250 mg Nicotine Polacrilex (Nicotine Gum*) 2 mg PO Q2H PRN PRN Reason: CRAVING Last Admin: 05/18/16 17:56 Dose: 2 mg Oxycodone HCl (Roxycodone Tab*) 5 mg PO Q4H PRN PRN Reason: PAIN Last Admin: 05/22/16 09:51 Dose: 5 mg Pantoprazole Sodium (Protonix Tab (Nf)) 40 mg PO 0730 [facility] PRN Reason: Protocol Last Admin: 05/22/16 09:52 Dose: 40 mg Sevelamer Carbonate (Renvela Tab*) 800 mg PO AC [facility] Last Admin: 05/22/16 08:16 Dose: 800 mg Temazepam (Restoril Cap*) 15 mg PO BEDTIME PRN PRN Reason: INSOMNIA Last Admin: 05/20/16 23:57 Dose: 15 mg Vital Signs 05/21/16 05/21/16 05/21/16 12:18 17:16 17:49 Temperature 97.8 F 98.4 F Pulse Rate 80 98 Respiratory 16 16 16 Rate Blood Pressure 156/84 145/81 (mmHg) O2 Sat by Pulse 100 97 Oximetry 05/21/16 05/21/16 05/21/16 19:49 20:00 20:19 Temperature 98.4 F Pulse Rate 86 Respiratory 16 16 16 Rate Blood Pressure 155/86 (mmHg) O2 Sat by Pulse 94 Oximetry 05/21/16 05/22/16 05/22/16 23:24 00:37 02:37 Temperature 98.2 F Pulse Rate 82 Respiratory 16 16 16 Rate Blood Pressure 139/80 (mmHg) O2 Sat by Pulse 93 Oximetry 05/22/16 05/22/16 05/22/16 03:36 07:17 09:51 Temperature 98.0 F 98.1 F Pulse Rate 77 76 Respiratory 16 16 18 Rate Blood Pressure 138/55 139/83 (mmHg) O2 Sat by Pulse 97 Oximetry Oxygen Devices in Use Now: None Appearance: Alert, in good spirits. Look comfortable. Sitting up in bed. Neck: NL Appearance and Movements; NL JVP, No Thyroid Enlargement, Masses Respiratory: Symmetrical Chest Expansion and Respiratory Effort, Clear to Auscultation, Clear to Percussion Extremities: No Edema, No Clubbing, Cyanosis, - - av fistula L arm Skin: No Rash or Ulcers, No Nodules or Sclerosis Neurological: Alert and Oriented x 3, NL Sensation Result Diagrams: 05/19/16 12:25 05/21/16 06:25 Additional Lab and Data: Lab Results 05/16/16 05/16/16 05/16/16 Range/Units 21:40 21:40 21:40 WBC 14.5 H (3.5-10.8) 10^3/ul RBC 2.67 L (4.0-5.4) 10^6/ul Hgb 9.3 L (14.0-18.0) g/dl Hct 29 L (42-52) % MCV 109 H (80-94) fL MCH 35 H (27-31) pg MCHC 32 (31-36) g/dl RDW 20 H (10.5-15) % Plt Count 328 (150-450) 10^3/ul MPV 9 (7.4-10.4) um3 Neut % (Auto) 87.4 H (38-83) % Lymph % (Auto) 6.9 L (25-47) % [place] % (Auto) 5.2 (1-9) % Eos % (Auto) 0.1 (0-6) % Baso % (Auto) 0.4 (0-2) % Absolute Neuts (auto) 12.7 H (1.5-7.7) 10^3/ul Absolute Lymphs (auto) 1.0 (1.0-4.8) 10^3/ul Absolute Monos (auto) 0.7 (0-0.8) 10^3/ul Absolute Eos (auto) 0 (0-0.6) 10^3/ul Absolute Basos (auto) 0.1 (0-0.2) 10^3/ul Absolute Nucleated RBC 0.03 10^3/ul Nucleated RBC % 0.2 Sodium 136 (133-145) mmol/L Potassium 6.9 H* (3.5-5.0) mmol/L Chloride 97 L (101-111) mmol/L Carbon Dioxide 25 (22-32) mmol/L Anion Gap 14 H (2-11) mmol/L BUN 82 H (6-24) mg/dL Creatinine 8.76 H (0.67-1.17) mg/dL Est GFR ( Amer) 9.0 (>60) Est GFR (Non-Af Amer) 7.0 (>60) BUN/Creatinine Ratio 9.4 (8-20) Glucose 104 H (70-100) mg/dL Lactic Acid 2.3 H* (0.5-2.0) mmol/L Calcium 8.8 (8.6-10.3) mg/dL Magnesium 2.0 (1.9-2.7) mg/dL Total Bilirubin 0.30 (0.2-1.0) mg/dL AST 24 (13-39) U/L ALT 27 (7-52) U/L Alkaline Phosphatase 49 (34-104) U/L Troponin I 0.04 H* (<0.04) ng/mL C-React Prot High Sens 41.83 mg/L Total Protein 6.7 (6.4-8.9) g/dL Albumin 3.7 (3.2-5.2) g/dL Globulin 3.0 (2-4) g/dL Albumin/Globulin Ratio 1.2 (1-3) TSH 1.49 (0.34-5.60) mcIU/mL Microbiology and Other Data: Microbiology 05/17/16 11:10 Aerobic Blood Culture - Preliminary Blood Venous No Growth Day 1 Anaerobic Blood Culture - Preliminary No Growth Day 1 05/17/16 03:00 Nasal Screen MRSA (PCR)(SONIA) - Final Nasal Mrsa Negative Assess/Plan/Problems-Billing Assessment: Mr. Puri is a 31yo M with of SLE, pericarditis, h/o renal tumor s/o nephrectomy , ESRD on HD, HTN, recent admission for pericarditis/pleuritis, who presented to ED with c/o fatigue and dyspnea, found to have 3rd degree AVB. - Patient Problems (1) Third degree AV block Current Visit: Yes Status: Acute Code(s): I44.2 - ATRIOVENTRICULAR BLOCK, COMPLETE SNOMED Code(s): 71984749 Comment: -Resolved. - Could be secondary to lupus associated myocarditis vs Plaquenil side effect. - Lyme disease PCR is negative. Continue Medrol 16 mg PO daily. Fup Conchita Harvey. (2) SLE (systemic lupus erythematosus) Current Visit: Yes Status: Acute Code(s): M32.9 - SYSTEMIC LUPUS ERYTHEMATOSUS, UNSPECIFIED SNOMED Code(s): 13001565 Comment: - Anti-dsDNA was negative on his prior admission but now elevated compatible with SLE flare. Methylprednisolone 16 mg to taper slowly over a month. (3) ESRD (end-stage renal disease) due to SLE Current Visit: Yes Status: Acute Code(s): M32.14 - GLOMERULAR DISEASE IN SYSTEMIC LUPUS ERYTHEMATOSUS; N18.6 - END STAGE RENAL DISEASE SNOMED Code(s): 16838751 Comment: - Continue HD MWF. His outpt schedule in [facility] [facility]. (4) HTN (hypertension) Current Visit: Yes Status: Acute Code(s): I10 - ESSENTIAL (PRIMARY) HYPERTENSION SNOMED Code(s): 27133391 Comment: - Continue Amlodipine. Status and Disposition: Discharge now. Fup Conchita Harvey.
--- NOTE | 2016-05-22 10:29 | PN ---
Progress Note - Progress Note Note: Time spent on discharge 45 minutes. I discussed the case with Dr. Jluis Clements.
--- NOTE | 2016-05-22 13:00 | DS ---
CC: Dr. Baugh; Dr. Arango DISCHARGE SUMMARY: DATE OF ADMISSION: DATE OF DISCHARGE: 05/22/16 HOSPITAL COURSE: This is a 31-year-old man presenting with shortness of breath. He had recently been treated for pericarditis, felt to be due to his known systemic lupus erythematosus. In the emergency room on this admission, the patient was found to have third- degree heart block. He was admitted to the intensive care unit. His potassium was also noted to be 6.9. He underwent hemodialysis here. He was seen in consultation by Dr. Jluis Clements and Dr. Baugh. He was given steroids, eventually changed to methylprednisolone 60 mg daily, his potassium came down to 5.0 on May 21, that should be before his last dialysis treatment. His sodium was 133, BUN 100, creatinine 10.37. His third-degree heart block resolved. He was in normal sinus rhythm in the 60s to 80s. His metoprolol, which he had been on at home, was discontinued. He was continued on amlodipine. His TSH was within normal limits. Anti-double stranded DNA IgG antibody was 30.3, which is slightly elevated. Sedimentation rate on May 19 was 34, it had been 85 on May 06. This patient felt much better. He is advised to seek medical attention immediately if he had anymore similar symptoms of shortness of breath or if he had lightheadedness, dizziness, or loss of consciousness. The plan is for him to take methylprednisolone 60 mg daily and taper this slowly over about 1-month period; Dr. Baugh will supervise this. FINAL DIAGNOSES: 1. Third-degree heart block, resolved. 2. Systemic lupus erythematosus. 3. End-stage renal disease. 4. Hypertension. DISCHARGE MEDICATIONS: 1. Amlodipine 5 mg daily. 2. Citalopram 40 mg daily. 3. Lansoprazole 30 mg daily. 4. Fluticasone nasal spray both nares daily. The patient was instructed to stop metoprolol. [id number]/[facility] #: [id number] [facility]
== END 2016-05-22 14:20 | disposition home or self-care (01) | DRG 308 ==
LOC: ED 21:16 → ICU 05-17 01:41 → MEDTELE 05-21 08:25
PROVIDERS: ADMIT Internal Medicine; ATTEND Internal Medicine
PROC: 5A1D60Z (ICD-10-PCS; principal; 2016-05-17)
DX: I44.2 Atrioventricular block, complete (principal); N18.6 End stage renal disease; M32.9 Systemic lupus erythematosus, unspecified; I12.0 Hypertensive chronic kidney disease with stage 5 chronic kidney disease or end stage renal disease; M32.12 Pericarditis in systemic lupus erythematosus; E87.5 Hyperkalemia; F17.210 Nicotine dependence, cigarettes, uncomplicated; F32.9 Major depressive disorder, single episode, unspecified; Z83.3 Family history of diabetes mellitus; Z79.899 Other long term (current) drug therapy; Z88.8 Allergy status to other drugs, medicaments and biological substances; Z99.2 Dependence on renal dialysis; Z85.53 Personal history of malignant neoplasm of renal pelvis
CPT/HCPCS: 36415; 71010; 80048; 80053; 83605; 83735; 84132; 84443; 84484; 85025; 85652; 86140; 86141; 86160; 86225; 87040; 87476; 87641; 90935; 93005; 93306; A9270-GY; G0257; J0610; J0885; J1170; J1644; J2930; J7509; J8540

== ENCOUNTER 2016-06-14 08:34 | Inpatient (IN) | payer MEDICARE, MEDICAID ==
[2016-06-14] MEDS ORDERED: Ondansetron INJ* 2 MG/ML VIAL IV ONE (09:14)
[2016-06-14] MEDS ORDERED: NS 0.9% 1000 ML* 2,000 ML IV ONE (09:14)
[2016-06-14 09:40] LABS: Hematocrit 43 % (42-52); Hemoglobin 13.7 g/dl (14.0-18.0); Mean Corpuscular HGB Conc 32 g/dl (31-36); Mean Corpuscular Hemoglobin 34 pg (27-31); Mean Corpuscular Volume 107 fL (80-94); Mean Platelet Volume 10 um3 (7.4-10.4); Red Cell Distribution Width 21 % (10.5-15)
[2016-06-14 09:43] LABS: Add Diff/Slide Review? Slide Review Added; Comments Flag Yes
[2016-06-14 09:50] LABS: ALT 16 U/L (7-52); Albumin 4.8 g/dL (3.2-5.2); Alkaline Phosphatase 59 U/L (34-104); BUN/Creatinine Ratio 5.9 (8-20); Blood Urea Nitrogen 61 mg/dL (6-24); C Reactive Protein 5.22 mg/L (< 5.00); CO2 Carbon Dioxide 17 mmol/L (22-32); Chloride 100 mmol/L (101-111); EGFR African American 7.5 (>60); EGFR Non-African American 5.8 (>60); Globulin 3.2 g/dL (2-4); Glucose 136 mg/dL (70-100); Lipase 476 U/L (11.0-82.0); Sodium 136 mmol/L (133-145)
[2016-06-14] MEDS ORDERED: Ondansetron INJ* 2 MG/ML VIAL IV PRN (12:53)
[2016-06-14] MEDS ORDERED: NS 0.9% 1000 ML* 1,000 ML IV SCH (13:00)
[2016-06-14] MEDS: Morphine INJ* 4 MG/ML 1 ML CARPUJECT IV PRN ×3 (14:59→23:56)
[2016-06-14] MEDS: Acetaminophen TAB* 325 MG PO PRN ×2 (15:06→21:13)
--- NOTE | 2016-06-14 15:09 | ED ---
Jasbir Ibrahim Billy, scribed for Bennie Casarez MD on 06/14/16 at 0916 . GI/ HPI - HPI Summary HPI Summary: Patient is a 31 year-old male coming to [facility] presenting with intermittent episodes of N/V/D starting at 0400 this morning. He states that he has had numerous, frequent episodes of emesis and diarrhea, and he describes his stools as very loose and watery. Nothing appears to make his symptoms better or worse. He also reports soreness in the epigastrium, and he believes this pain is related to his frequent vomiting episodes. Patient has a history of lupus. He receives dialysis treatment on Tuesdays, , and Saturdays; his last dialysis treatment was 2 days ago. - History of Current Complaint Chief Complaint: EDGeneral Time Seen by Provider: 06/14/16 08:54 Stated Complaint: NAUSEA/VOMITING/DIARRHEA Hx Obtained From: Patient Onset/Duration: Started Hours Ago, Still Present Timing: Intermittent Severity: Moderate Current Severity: Moderate Pain Intensity: 8 Location of Pain: Epigastric Associated Signs and Symptoms: Positive: Nausea, Vomiting, Diarrhea Aggravating Factor(s): Nothing Alleviating Factor(s): Nothing - Allergy/Home Medications Allergies/Adverse Reactions: Allergies Allergy/AdvReac Type Severity Reaction Status Date / Time Hydralazine Allergy Shortness Verified 05/02/16 10:00 of Breath Prednisone AdvReac Hallucinati Verified 05/20/16 15:13 ons PMH/Surg Hx/FS Hx/Imm Hx Endocrine/Hematology History: Reports: Hx Systemic Lupus Erythematosus Denies: Hx Diabetes, Hx Thyroid Disease Cardiovascular History: Reports: Hx Hypertension Denies: Hx Peripheral Vascular Disease Comment Only: Other Cardiovascular Problems/Disorders - Hx LUPUS Respiratory History: Reports: Hx Asthma, Hx Seasonal Allergies, Other Respiratory Problems/Disorders - Hx pleurisy. History: Reports: Hx Dialysis - MWF, Other Problems/Disorders - Kidney cancer, unilateral nephrectomy Musculoskeletal History: Reports: Other Musculoskeletal History - Lupus: generlized pain Denies: Hx Arthritis, Hx Osteoporosis Sensory History: Reports: Hx Contacts or Glasses Opthamlomology History: Reports: Hx Contacts or Glasses Neurological History: Denies: Hx Seizures, Hx Transient Ischemic Attacks (TIA) Psychiatric History: Reports: Hx Anxiety - Cancer History Cancer Type, Location and Year: Kidney cancer, September 2014 in [place]. Hx Chemotherapy: Yes - For lupus. - Surgical History Surgery Procedure, Year, and Place: Nephrectomy, splenectomy, Inguinal hernia repaired, multiple fistula placements. Hx Anesthesia Reactions: No Infectious Disease History: No Infectious Disease History: Denies: Hx of Known/Suspected MRSA, Traveled Outside the in Last 30 Days - Family History Known Family History: Positive: Hypertension, Diabetes - Social History Alcohol Use: None Substance Use Type: Reports: None Smoking Status (MU): Unknown if Ever Smoked Type: Cigarettes Amount Used/How Often: 3 cigs per day Length of Time of Smoking/Using Tobacco: 18 years Have You Smoked in the Last Year: Yes Review of Systems Negative: Fever Positive: Abdominal Pain, Vomiting, Diarrhea, Nausea All Other Systems Reviewed And Are Negative: Yes Physical Exam Triage Information Reviewed: Yes Vital Signs On Initial Exam: Initial Vitals Temp Pulse Resp BP Pulse Ox 100.0 F 110 20 159/98 100 06/14/16 08:44 06/14/16 08:44 06/14/16 08:44 06/14/16 08:44 06/14/16 08:44 Vital Signs Reviewed: Yes Appearance: Positive: Well-Appearing, No Pain Distress Skin: Positive: Warm, Skin Color Reflects Adequate Perfusion, Dry Head/Face: Positive: Normal Head/Face Inspection Eyes: Positive: Normal Respiratory/Lung Sounds: Positive: Clear to Auscultation, Breath Sounds Present Cardiovascular: Positive: RRR Abdomen Description: Positive: Soft, Other: - Mild epigastric tenderness. Musculoskeletal: Positive: Normal Neurological: Positive: Normal Psychiatric: Positive: Normal, Affect/Mood Appropriate AVPU Assessment: Alert - Agustin Coma Scale Coma Scale Total: 15 Diagnostics - Vital Signs Vital Signs Temp Pulse Resp BP Pulse Ox 06/14/16 09:00 101 16 146/82 98 06/14/16 08:59 113 28 100 06/14/16 08:44 100.0 F 110 20 159/98 100 - Laboratory Lab Results: Lab Results 06/14/16 06/14/16 06/14/16 Range/Units 08:50 08:50 08:50 WBC 18.0 H (3.5-10.8) 10^3/ul RBC 4.00 (4.0-5.4) 10^6/ul Hgb 13.7 L (14.0-18.0) g/dl Hct 43 (42-52) % MCV 107 H (80-94) fL MCH 34 H (27-31) pg MCHC 32 (31-36) g/dl RDW 21 H (10.5-15) % Plt Count 438 (150-450) 10^3/ul MPV 10 (7.4-10.4) um3 Neut % (Auto) 92.9 H (38-83) % Lymph % (Auto) 3.6 L (25-47) % [place] % (Auto) 2.3 (1-9) % Eos % (Auto) 0.7 (0-6) % Baso % (Auto) 0.5 (0-2) % Absolute Neuts (auto) 16.7 H (1.5-7.7) 10^3/ul Absolute Lymphs (auto) 0.7 L (1.0-4.8) 10^3/ul Absolute Monos (auto) 0.4 (0-0.8) 10^3/ul Absolute Eos (auto) 0.1 (0-0.6) 10^3/ul Absolute Basos (auto) 0.1 (0-0.2) 10^3/ul Absolute Nucleated RBC 0.01 10^3/ul Nucleated RBC % 0.1 Sodium 136 (133-145) mmol/L Potassium TNP Chloride 100 L (101-111) mmol/L Carbon Dioxide 17 L (22-32) mmol/L Anion Gap TNP BUN 61 H (6-24) mg/dL Creatinine 10.31 H (0.67-1.17) mg/dL Est GFR ( Amer) 7.5 (>60) Est GFR (Non-Af Amer) 5.8 (>60) BUN/Creatinine Ratio 5.9 L (8-20) Glucose 136 H (70-100) mg/dL Lactic Acid 3.3 H* (0.5-2.0) mmol/L Calcium 10.0 (8.6-10.3) mg/dL Total Bilirubin 0.60 (0.2-1.0) mg/dL AST TNP ALT 16 (7-52) U/L Alkaline Phosphatase 59 (34-104) U/L C-Reactive Protein 5.22 H (< 5.00) mg/L Total Protein 8.0 (6.4-8.9) g/dL Albumin 4.8 (3.2-5.2) g/dL Globulin 3.2 (2-4) g/dL Albumin/Globulin Ratio 1.5 (1-3) Lipase 476 H (11.0-82.0) U/L 06/14/16 Range/Units 10:55 WBC (3.5-10.8) 10^3/ul RBC (4.0-5.4) 10^6/ul Hgb (14.0-18.0) g/dl Hct (42-52) % MCV (80-94) fL MCH (27-31) pg MCHC (31-36) g/dl RDW (10.5-15) % Plt Count (150-450) 10^3/ul MPV (7.4-10.4) um3 Neut % (Auto) (38-83) % Lymph % (Auto) (25-47) % [place] % (Auto) (1-9) % Eos % (Auto) (0-6) % Baso % (Auto) (0-2) % Absolute Neuts (auto) (1.5-7.7) 10^3/ul Absolute Lymphs (auto) (1.0-4.8) 10^3/ul Absolute Monos (auto) (0-0.8) 10^3/ul Absolute Eos (auto) (0-0.6) 10^3/ul Absolute Basos (auto) (0-0.2) 10^3/ul Absolute Nucleated RBC 10^3/ul Nucleated RBC % Sodium (133-145) mmol/L Potassium 3.8 Chloride (101-111) mmol/L Carbon Dioxide (22-32) mmol/L Anion Gap BUN (6-24) mg/dL Creatinine (0.67-1.17) mg/dL Est GFR ( Amer) (>60) Est GFR (Non-Af Amer) (>60) BUN/Creatinine Ratio (8-20) Glucose (70-100) mg/dL Lactic Acid (0.5-2.0) mmol/L Calcium (8.6-10.3) mg/dL Total Bilirubin (0.2-1.0) mg/dL AST 8 L ALT (7-52) U/L Alkaline Phosphatase (34-104) U/L C-Reactive Protein (< 5.00) mg/L Total Protein (6.4-8.9) g/dL Albumin (3.2-5.2) g/dL Globulin (2-4) g/dL Albumin/Globulin Ratio (1-3) Lipase (11.0-82.0) U/L Result Diagrams: 06/14/16 08:50 06/14/16 10:55 Lab Statement: Any lab studies that have been ordered have been reviewed, and results considered in the medical decision making process. GIGU Course/Dx - Course Course Of Treatment: Mr. Puri presented with a gastroenteritis picture of N/V/ D. for one day. He met sepsis criteria of tachycardia (which was persistent and apparently refractory to fluids) and leukocytosis. I was worried because of his immune-supressed state and asked the hospitalists to OBV him. - Diagnoses Provider Diagnoses: Dehydration, Gastroenteritis Discharge - Discharge Plan Condition: Fair Disposition: ADMITTED TO [facility] The documentation as recorded by the Jasbir mcmillan Billy accurately reflects the service I personally performed and the decisions made by me, Bennie Casarez MD.
[2016-06-14] MEDS: Sevelamer TAB* 800 MG PO SCH (17:33)
--- NOTE | 2016-06-14 19:58 | HP ---
ADDENDUM NOW INCLUDED ON THIS REPORT HOSPITAL MEDICINE HISTORY AND PHYSICAL: DATE OF ADMISSION: 06/14/16 ATTENDING PHYSICIAN: Dr. Gwendolyn Wallace*(dictation provided by Jolanta Nolan NP). CHIEF COMPLAINT: Nausea, vomiting, diarrhea. HISTORY OF PRESENT ILLNESS: Mr. Puri is a 31-year-old male with past medical history of systemic lupus with lupus nephritis and end-stage renal disease, on hemodialysis, as well as recent episode of third-degree heart block and recurrent episodes of pleurisy, who presents today to the hospital with concern for nausea, vomiting, and diarrhea. Mr. Puri was discharged on 05/22/16 after developing a third-degree heart block thought to be secondary to combination of beta blockers and Plaquenil. The patient was discharged to home off all these medications. He states he has followed up with Dr. Baugh and has been resumed on the Plaquenil. He remains off the beta ruby. Mr. Puri states that at 4 a.m., he developed nausea, vomiting, and diarrhea suddenly. He also had diffuse abdominal pain. He felt chills, but did not take his temperature. He denies other complaint. He states he has been following up regularly with hemodialysis with last appointment on Tuesday with no issues at that point. In the emergency room, Mr. Puri had a white blood cell count that was elevated to 18.0. His temperature was 100. His heart rate despite IV fluids continues to run approximately 110. His lactic acid was also elevated at 3.3. I will note that his C-reactive protein is only 5.22. Based on Mr. Puri's presentation with sudden onset of nausea, vomiting, diarrhea, and suspected viral gastroenteritis, Hospital Medicine was called regarding admission. PAST MEDICAL HISTORY: 1. Systemic lupus erythematosus. 2. End-stage renal disease, on hemodialysis, secondary to lupus nephritis. 3. Hypertension. 4. Third-degree heart block. 5. History of splenectomy. 6. Recurrent pleurisy. MEDICATIONS: 1. Amlodipine 5 mg p.o. daily. 2. Albuterol p.r.n. 3. Lansoprazole 30 mg p.o. daily. 4. Citalopram 40 mg p.o. daily. 5. Flonase 50 mcg both nares daily. 6. Sevelamer 800 mg p.o. q.a.c. 7. Trazodone 25 mg p.o. bedtime. 8. The patient says he is on prednisone, but per the pharmacy, he is on methylprednisolone. I am planning to contact Dr. Baugh's office to confirm the steroid dosing. 10. Plaquenil 200 mg b.i.d. ALLERGIES: To HYDRALAZINE and PREDNISONE which cause psychosis with history of suicide attempt. FAMILY HISTORY: The patient reports his father and mother both had diabetes. SOCIAL HISTORY: The patient is a pack-a-day smoker. He denies alcohol or drug use. He states his sister would be his healthcare proxy. REVIEW OF SYSTEMS: A 14-point review of systems was completed with Mr. Puri and all those not mentioned above were negative. PHYSICAL EXAMINATION GENERAL: Mr. Puri is lying on the bed. He appears uncomfortable, but in no acute distress. VITAL SIGNS: Temperature 100, heart rate 110, respiratory rate 21, O2 saturation 97% on room air, blood pressure 124/74. LUNGS: Clear to auscultation bilaterally with no accessory muscle use and good aeration. HEART: S1, S2. No murmur, rub, or gallop, and regular. ABDOMEN: The patient reports tenderness in his epigastric region, but it is soft and bowel sounds are positive. EXTREMITIES: No cyanosis or edema. NEURO: He is alert and oriented x3. He moves all extremities equally. There is no facial asymmetry or focal weakness. Extraocular movements are intact. SKIN: Intact. LABORATORY DATA: Sodium 136, potassium 3.8, chloride 100, serum bicarbonate 17 , BUN 61, creatinine 10.31, glucose 136, lactic acid 3.3. CRP 5.22. Lipase 476. WBC 18.0, hemoglobin 13.7, hematocrit 43, platelet count 438. ASSESSMENT AND PLAN: Mr. Puri is a 31-year-old male with a past medical history of lupus with associated lupus nephritis and end-stage renal disease, on hemodialysis, who presents today to the hospital with a sudden onset of nausea, vomiting, diarrhea at 4 a.m. this morning. The patient reports sick contacts. In the emergency room, he has been found to have an elevated white blood cell count, tachycardia, and lactic acidosis. Based on his immunocompromised state with Plaquenil, plans are to observe in the hospital overnight for the followin. Suspected viral gastroenteritis: The patient has classic symptoms of viral gastroenteritis with nausea, vomiting, and diarrhea. He meets sepsis criteria based on the systemic inflammatory response syndrome criteria, but not via qSOFA. Our plans will be for intravenous fluids and with some degree of moderation given his history of end-stage renal disease, on hemodialysis. I will repeat a lactic acid here shortly. He will have Zofran for symptomatic relief of nausea. He will have a soft diet. I do note that his lipase is elevated, but he does not describe pain that is consistent with pancreatitis and is only very mildly elevated. Plan to recheck in the a.m. 2. History of systemic lupus: The patient is unclear about his steroid dosing. I will confirm that with Dr. Baugh's office if possible today. Per the pharmacy, he is actually on methylprednisolone and not prednisone. I will plan to continue his Plaquenil. 3. Hypertension: Continue amlodipine. 4. End-stage renal disease, on hemodialysis: The patient will continue on dialysis per routine. 5. DVT prophylaxis: With early mobility. 6. Disposition: To medical floor. TIME SPENT: Approximately 60 minutes was spent on the admission of this patient , more than half time spent with the patient at the bedside reviewing the events leading up to this hospitalization, performing the physical examination, and reviewing the plan of care. JOLANTA NOLAN NP ADDENDUM: DATE OF ADMISSION: 06/14/16 The methylprednisolone dose is methylprednisolone 4 mg 6 tabs p.o. daily x2 more days, then decrease by 1 tab q.5 days until down to 2 tabs daily, and then continue indefinitely. JOLANTA NOLAN NP CC: Dr. Flores; Dr. Baugh * [id number]/[facility] #: [id number]/[facility] #: [id number] [facility]
--- NOTE | 2016-06-14 20:24 | HP ---
HISTORY AND PHYSICAL:* ADDENDUM: DATE OF ADMISSION: 06/14/16 The methylprednisolone dose is methylprednisolone 4 mg 6 tabs p.o. daily x2 more days, then decrease by 1 tab q.5 days until down to 2 tabs daily, and then continue indefinitely. [facility] [id number]/[facility] #: [id number] [facility]
[2016-06-14] MEDS: traZODone TAB* 50 MG TAB PO SCH (21:12)
[2016-06-14] MEDS: Heparin VIAL(*) 5000 UNITS/ML VIAL (FIVE THOUSAND) SUBCUT SCH (22:55)
[2016-06-15] MEDS ORDERED: diPHENhydraMINE PO* 50 MG PO PRN (00:28)
[2016-06-15] MEDS: Morphine INJ* 4 MG/ML 1 ML CARPUJECT IV PRN ×3 (04:18→14:26)
[2016-06-15 05:19] LABS: Hematocrit 33 % (42-52); Hemoglobin 10.8 g/dl (14.0-18.0); Mean Corpuscular HGB Conc 32 g/dl (31-36); Mean Corpuscular Hemoglobin 35 pg (27-31); Mean Platelet Volume 9 um3 (7.4-10.4); Red Blood Count 3.11 10^6/ul (4.0-5.4); Red Cell Distribution Width 21 % (10.5-15); White Blood Count 10.9 10^3/ul (3.5-10.8)
[2016-06-15 05:24] LABS: Comments Flag Yes; Mean Corpuscular Volume 107 fL (80-94)
[2016-06-15 05:34] LABS: BUN/Creatinine Ratio 5.8 (8-20); Calcium 8.1 mg/dL (8.6-10.3); EGFR African American 6.3 (>60); EGFR Non-African American 4.9 (>60); Potassium 5.4 mmol/L (3.5-5.0)
[2016-06-15] MEDS: Heparin VIAL(*) 5000 UNITS/ML VIAL (FIVE THOUSAND) SUBCUT SCH ×3 (06:17→21:22)
[2016-06-15] MEDS: Sevelamer TAB* 800 MG PO SCH ×3 (08:44→16:37)
[2016-06-15] MEDS ORDERED: Citalopram TAB* 40 MG PO SCH (09:00)
--- NOTE | 2016-06-15 13:37 | PN ---
Subjective Date of Service: 06/15/16 Interval History: Pt is feeling better than when he presented to the ER but is still feeling queasy. He states he feels like he needs to burp and is having a difficult time doing so. Objective Active Medications: Acetaminophen (Tylenol Tab*) 650 mg PO Q6H PRN PRN Reason: pain/fever Last Admin: 06/14/16 21:13 Dose: 650 mg Amlodipine Besylate (Norvasc Tab*) 5 mg PO DAILY [facility] Diphenhydramine HCl (Benadryl Po*) 50 mg PO BEDTIME PRN PRN Reason: SLEEP Fluticasone Propionate (Flonase Nasal [place] 50mcg*) 1 spray BOTH NARES DAILY [facility] Heparin Sodium (Porcine) (Heparin Vial(*)) 5,000 units SUBCUT Q8HR [facility] Last Admin: 06/15/16 06:17 Dose: 5,000 units Methylprednisolone (Medrol Tab*) 24 mg PO DAILY [facility] Stop: 06/16/16 09:01 Morphine Sulfate (Morphine Inj (Syringe)*) 4 mg IV Q4H PRN PRN Reason: PAIN Last Admin: 06/15/16 09:27 Dose: 4 mg Ondansetron HCl (Zofran Inj*) 4 mg IV Q6H PRN PRN Reason: NAUSEA Sevelamer Carbonate (Renvela Tab*) 800 mg PO AC [facility] Last Admin: 06/15/16 12:34 Dose: 800 mg Simethicone (Mylicon*) 80 mg PO Q6H PRN PRN Reason: gas Trazodone HCl (Desyrel Tab*) 25 mg PO BEDTIME [facility] Last Admin: 06/14/16 21:12 Dose: 25 mg Vital Signs 06/14/16 06/14/16 06/14/16 14:12 14:59 15:59 Temperature 97.6 F Pulse Rate 121 Respiratory 20 18 18 Rate Blood Pressure 148/90 (mmHg) O2 Sat by Pulse 100 Oximetry 06/14/16 06/14/16 06/14/16 16:11 18:46 19:40 Temperature 101.3 F Pulse Rate 124 Respiratory 20 18 18 Rate Blood Pressure 122/56 (mmHg) O2 Sat by Pulse 96 Oximetry 06/14/16 06/14/16 06/14/16 19:55 19:57 20:40 Temperature 100.2 F Pulse Rate 108 Respiratory 16 18 16 Rate Blood Pressure 142/67 (mmHg) O2 Sat by Pulse 97 Oximetry 06/14/16 06/15/16 06/15/16 23:56 00:10 00:56 Temperature 98.9 F Pulse Rate 100 Respiratory 16 16 16 Rate Blood Pressure 154/67 (mmHg) O2 Sat by Pulse 96 Oximetry 06/15/16 06/15/16 06/15/16 04:18 04:42 05:18 Temperature 98.2 F Pulse Rate 92 Respiratory 16 14 16 Rate Blood Pressure 142/77 (mmHg) O2 Sat by Pulse 99 Oximetry 06/15/16 06/15/16 06/15/16 08:00 08:08 09:27 Temperature 97.8 F Pulse Rate 93 Respiratory 16 16 16 Rate Blood Pressure 137/77 (mmHg) O2 Sat by Pulse 98 Oximetry 06/15/16 10:27 Temperature Pulse Rate Respiratory 16 Rate Blood Pressure (mmHg) O2 Sat by Pulse Oximetry Oxygen Devices in Use Now: None Appearance: Young male lying in bed, NAD Eyes: No Scleral Icterus Ears/Nose/Mouth/Throat: Mucous Membranes Moist Respiratory: Symmetrical Chest Expansion and Respiratory Effort, Clear to Auscultation Cardiovascular: NL Sounds; No Murmurs; No JVD, RRR, No Edema Abdominal: - - BS hyperactive, minimally distended, soft, NT Extremities: No Clubbing, Cyanosis Skin: No Rash or Ulcers, No Nodules or Sclerosis Neurological: Alert and Oriented x 3 Result Diagrams: 06/15/16 05:00 06/15/16 05:01 Additional Lab and Data: Lab Results 06/14/16 06/14/16 06/14/16 Range/Units 08:50 08:50 08:50 WBC 18.0 H (3.5-10.8) 10^3/ul RBC 4.00 (4.0-5.4) 10^6/ul Hgb 13.7 L (14.0-18.0) g/dl Hct 43 (42-52) % MCV 107 H (80-94) fL MCH 34 H (27-31) pg MCHC 32 (31-36) g/dl RDW 21 H (10.5-15) % Plt Count 438 (150-450) 10^3/ul MPV 10 (7.4-10.4) um3 Neut % (Auto) 92.9 H (38-83) % Lymph % (Auto) 3.6 L (25-47) % [place] % (Auto) 2.3 (1-9) % Eos % (Auto) 0.7 (0-6) % Baso % (Auto) 0.5 (0-2) % Absolute Neuts (auto) 16.7 H (1.5-7.7) 10^3/ul Absolute Lymphs (auto) 0.7 L (1.0-4.8) 10^3/ul Absolute Monos (auto) 0.4 (0-0.8) 10^3/ul Absolute Eos (auto) 0.1 (0-0.6) 10^3/ul Absolute Basos (auto) 0.1 (0-0.2) 10^3/ul Absolute Nucleated RBC 0.01 10^3/ul Nucleated RBC % 0.1 Sodium 136 (133-145) mmol/L Potassium TNP Chloride 100 L (101-111) mmol/L Carbon Dioxide 17 L (22-32) mmol/L Anion Gap TNP BUN 61 H (6-24) mg/dL Creatinine 10.31 H (0.67-1.17) mg/dL Est GFR ( Amer) 7.5 (>60) Est GFR (Non-Af Amer) 5.8 (>60) BUN/Creatinine Ratio 5.9 L (8-20) Glucose 136 H (70-100) mg/dL Lactic Acid 3.3 H* (0.5-2.0) mmol/L Calcium 10.0 (8.6-10.3) mg/dL Total Bilirubin 0.60 (0.2-1.0) mg/dL AST TNP ALT 16 (7-52) U/L Alkaline Phosphatase 59 (34-104) U/L C-Reactive Protein 5.22 H (< 5.00) mg/L Total Protein 8.0 (6.4-8.9) g/dL Albumin 4.8 (3.2-5.2) g/dL Globulin 3.2 (2-4) g/dL Albumin/Globulin Ratio 1.5 (1-3) Lipase 476 H (11.0-82.0) U/L 06/14/16 Range/Units 10:55 WBC (3.5-10.8) 10^3/ul RBC (4.0-5.4) 10^6/ul Hgb (14.0-18.0) g/dl Hct (42-52) % MCV (80-94) fL MCH (27-31) pg MCHC (31-36) g/dl RDW (10.5-15) % Plt Count (150-450) 10^3/ul MPV (7.4-10.4) um3 Neut % (Auto) (38-83) % Lymph % (Auto) (25-47) % [place] % (Auto) (1-9) % Eos % (Auto) (0-6) % Baso % (Auto) (0-2) % Absolute Neuts (auto) (1.5-7.7) 10^3/ul Absolute Lymphs (auto) (1.0-4.8) 10^3/ul Absolute Monos (auto) (0-0.8) 10^3/ul Absolute Eos (auto) (0-0.6) 10^3/ul Absolute Basos (auto) (0-0.2) 10^3/ul Absolute Nucleated RBC 10^3/ul Nucleated RBC % Sodium (133-145) mmol/L Potassium 3.8 Chloride (101-111) mmol/L Carbon Dioxide (22-32) mmol/L Anion Gap BUN (6-24) mg/dL Creatinine (0.67-1.17) mg/dL Est GFR ( Amer) (>60) Est GFR (Non-Af Amer) (>60) BUN/Creatinine Ratio (8-20) Glucose (70-100) mg/dL Lactic Acid (0.5-2.0) mmol/L Calcium (8.6-10.3) mg/dL Total Bilirubin (0.2-1.0) mg/dL AST 8 L ALT (7-52) U/L Alkaline Phosphatase (34-104) U/L C-Reactive Protein (< 5.00) mg/L Total Protein (6.4-8.9) g/dL Albumin (3.2-5.2) g/dL Globulin (2-4) g/dL Albumin/Globulin Ratio (1-3) Lipase (11.0-82.0) U/L Assess/Plan/Problems-Billing Mr mcgarry is a 31yo M who has a h/o SLE, lupus nephritis, recent admission for 3rd degree HB secondary to Bblocker and plaquenil who presented to the ER with c /o nausea, vomiting and diarrhea. - Patient Problems (1) Viral gastroenteritis Current Visit: Yes Status: Acute Code(s): A08.4 - VIRAL INTESTINAL INFECTION , UNSPECIFIED SNOMED Code(s): 882021451 Comment: Pt is feeling better than he was on admission though currently queasy he feels because he needs to burp. Will try simethicone. Continue prn antiemetics. WBC count is down today. Lactic acidosis has resolved. 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 Flores-he has missed his outpatient dialysis appt for today. (3) HTN (hypertension) Current Visit: Yes Status: Acute Code(s): I10 - ESSENTIAL (PRIMARY) HYPERTENSION SNOMED Code(s): 52503791 Comment: BP is under fair control. Continue amlodipine. (4) SLE (systemic lupus erythematosus) Current Visit: Yes Status: Acute Code(s): M32.9 - SYSTEMIC LUPUS ERYTHEMATOSUS, UNSPECIFIED SNOMED Code(s): 02067395 Comment: Continue plaquenil and methylprednisolone taper. (5) DVT prophylaxis Current Visit: Yes Status: Acute Code(s): UKX5186 - SNOMED Code(s): 064722585 Comment: SQ heparin (6) Full code status Current Visit: Yes Status: Acute Code(s): Z78.9 - OTHER SPECIFIED HEALTH STATUS SNOMED Code(s): 499136938
[2016-06-15] MEDS: Simethicone TAB* 80 MG TAB.CHEW PO PRN ×2 (14:18→21:20)
[2016-06-15] MEDS: Acetaminophen TAB* 325 MG PO PRN (14:26)
[2016-06-15] MEDS: Fluticasone NASAL SPRAY 50MCG* 16 gm SPRAY BTL BOTH NARES SCH (16:36)
[2016-06-15] MEDS: methylPREDNISolone TAB* 4 MG PO SCH (16:37)
[2016-06-15] MEDS: amLODIPine TAB* 5 MG PO SCH (16:38)
[2016-06-15] MEDS: traZODone TAB* 50 MG TAB PO SCH (21:21)
--- NOTE | 2016-06-15 21:53 | RAD ---
INDICATION: Chest pain COMPARISON: Chest x-ray May 16, 2016 TECHNIQUE: An AP portable view obtained at 2138 hours is submitted. FINDINGS: Bones/Soft Tissues: There are no acute bony findings. Cardiomediastinal: The cardiomediastinal silhouette is mildly enlarged. Lungs: There are no infiltrates. Pleura: There are no pleural effusions. Other: None IMPRESSION: MILDLY ENLARGED CARDIAC SILHOUETTE. NO ACTIVE DISEASE.
[2016-06-16] MEDS: Heparin VIAL(*) 5000 UNITS/ML VIAL (FIVE THOUSAND) SUBCUT SCH (05:38)
[2016-06-16] MEDS: Sevelamer TAB* 800 MG PO SCH ×2 (08:19→12:42)
[2016-06-16 10:04] VITALS: BP 149/88
--- NOTE | 2016-06-16 11:21 | PN ---
Subjective Date of Service: 06/16/16 Interval History: Pt is feeling lousy currently but states it is because he is getting dialysis. He states he feels like this every time he has a treatment. He felt better this AM and was able to eat breakfast without any difficulty. Objective Active Medications: Acetaminophen (Tylenol Tab*) 650 mg PO Q6H PRN PRN Reason: pain/fever Last Admin: 06/15/16 14:26 Dose: 650 mg Amlodipine Besylate (Norvasc Tab*) 5 mg PO DAILY [facility] Last Admin: 06/15/16 16:38 Dose: 5 mg Diphenhydramine HCl (Benadryl Po*) 50 mg PO BEDTIME PRN PRN Reason: SLEEP Last Admin: 06/15/16 21:20 Dose: 50 mg Fluticasone Propionate (Flonase Nasal [place] 50mcg*) 1 spray BOTH NARES DAILY [facility] Last Admin: 06/15/16 16:36 Dose: 1 spray Heparin Sodium (Porcine) (Heparin Vial(*)) 5,000 units SUBCUT Q8HR [facility] Last Admin: 06/16/16 05:38 Dose: Not Given Morphine Sulfate (Morphine Inj (Syringe)*) 4 mg IV Q4H PRN PRN Reason: PAIN Last Admin: 06/15/16 14:26 Dose: 4 mg Ondansetron HCl (Zofran Inj*) 4 mg IV Q6H PRN PRN Reason: NAUSEA Last Admin: 06/15/16 16:43 Dose: 4 mg Sevelamer Carbonate (Renvela Tab*) 800 mg PO AC [facility] Last Admin: 06/16/16 08:19 Dose: 800 mg Simethicone (Mylicon*) 80 mg PO Q6H PRN PRN Reason: gas Last Admin: 06/15/16 21:20 Dose: 80 mg Trazodone HCl (Desyrel Tab*) 25 mg PO BEDTIME [facility] Last Admin: 06/15/16 21:21 Dose: 25 mg Vital Signs 06/15/16 06/15/16 06/15/16 15:26 15:42 20:00 Temperature 97.8 F Pulse Rate 84 Respiratory 16 16 16 Rate Blood Pressure 144/73 (mmHg) O2 Sat by Pulse 95 Oximetry 06/15/16 06/15/16 06/15/16 20:41 21:20 23:20 Temperature 98.1 F Pulse Rate 90 Respiratory 20 16 18 Rate Blood Pressure 145/80 (mmHg) O2 Sat by Pulse 100 Oximetry 06/15/16 06/15/16 06/16/16 23:21 23:50 08:54 Temperature 97.8 F 97.8 F Pulse Rate 89 72 Respiratory 16 18 Rate Blood Pressure 151/85 149/88 (mmHg) O2 Sat by Pulse 97 97 Oximetry Oxygen Devices in Use Now: None Appearance: Young male sitting in the dialysis chair, NAD Eyes: No Scleral Icterus Ears/Nose/Mouth/Throat: Mucous Membranes Moist Respiratory: Symmetrical Chest Expansion and Respiratory Effort, Clear to Auscultation Cardiovascular: NL Sounds; No Murmurs; No JVD, RRR, No Edema Abdominal: NL Sounds; No Tenderness; No Distention Extremities: No Clubbing, Cyanosis Skin: No Rash or Ulcers, No Nodules or Sclerosis Neurological: Alert and Oriented x 3 Result Diagrams: 06/15/16 05:00 06/15/16 05:01 Additional Lab and Data: Lab Results 06/14/16 06/14/16 06/14/16 Range/Units 08:50 08:50 08:50 WBC 18.0 H (3.5-10.8) 10^3/ul RBC 4.00 (4.0-5.4) 10^6/ul Hgb 13.7 L (14.0-18.0) g/dl Hct 43 (42-52) % MCV 107 H (80-94) fL MCH 34 H (27-31) pg MCHC 32 (31-36) g/dl RDW 21 H (10.5-15) % Plt Count 438 (150-450) 10^3/ul MPV 10 (7.4-10.4) um3 Neut % (Auto) 92.9 H (38-83) % Lymph % (Auto) 3.6 L (25-47) % [place] % (Auto) 2.3 (1-9) % Eos % (Auto) 0.7 (0-6) % Baso % (Auto) 0.5 (0-2) % Absolute Neuts (auto) 16.7 H (1.5-7.7) 10^3/ul Absolute Lymphs (auto) 0.7 L (1.0-4.8) 10^3/ul Absolute Monos (auto) 0.4 (0-0.8) 10^3/ul Absolute Eos (auto) 0.1 (0-0.6) 10^3/ul Absolute Basos (auto) 0.1 (0-0.2) 10^3/ul Absolute Nucleated RBC 0.01 10^3/ul Nucleated RBC % 0.1 Sodium 136 (133-145) mmol/L Potassium TNP Chloride 100 L (101-111) mmol/L Carbon Dioxide 17 L (22-32) mmol/L Anion Gap TNP BUN 61 H (6-24) mg/dL Creatinine 10.31 H (0.67-1.17) mg/dL Est GFR ( Amer) 7.5 (>60) Est GFR (Non-Af Amer) 5.8 (>60) BUN/Creatinine Ratio 5.9 L (8-20) Glucose 136 H (70-100) mg/dL Lactic Acid 3.3 H* (0.5-2.0) mmol/L Calcium 10.0 (8.6-10.3) mg/dL Total Bilirubin 0.60 (0.2-1.0) mg/dL AST TNP ALT 16 (7-52) U/L Alkaline Phosphatase 59 (34-104) U/L C-Reactive Protein 5.22 H (< 5.00) mg/L Total Protein 8.0 (6.4-8.9) g/dL Albumin 4.8 (3.2-5.2) g/dL Globulin 3.2 (2-4) g/dL Albumin/Globulin Ratio 1.5 (1-3) Lipase 476 H (11.0-82.0) U/L 06/14/16 Range/Units 10:55 WBC (3.5-10.8) 10^3/ul RBC (4.0-5.4) 10^6/ul Hgb (14.0-18.0) g/dl Hct (42-52) % MCV (80-94) fL MCH (27-31) pg MCHC (31-36) g/dl RDW (10.5-15) % Plt Count (150-450) 10^3/ul MPV (7.4-10.4) um3 Neut % (Auto) (38-83) % Lymph % (Auto) (25-47) % [place] % (Auto) (1-9) % Eos % (Auto) (0-6) % Baso % (Auto) (0-2) % Absolute Neuts (auto) (1.5-7.7) 10^3/ul Absolute Lymphs (auto) (1.0-4.8) 10^3/ul Absolute Monos (auto) (0-0.8) 10^3/ul Absolute Eos (auto) (0-0.6) 10^3/ul Absolute Basos (auto) (0-0.2) 10^3/ul Absolute Nucleated RBC 10^3/ul Nucleated RBC % Sodium (133-145) mmol/L Potassium 3.8 Chloride (101-111) mmol/L Carbon Dioxide (22-32) mmol/L Anion Gap BUN (6-24) mg/dL Creatinine (0.67-1.17) mg/dL Est GFR ( Amer) (>60) Est GFR (Non-Af Amer) (>60) BUN/Creatinine Ratio (8-20) Glucose (70-100) mg/dL Lactic Acid (0.5-2.0) mmol/L Calcium (8.6-10.3) mg/dL Total Bilirubin (0.2-1.0) mg/dL AST 8 L ALT (7-52) U/L Alkaline Phosphatase (34-104) U/L C-Reactive Protein (< 5.00) mg/L Total Protein (6.4-8.9) g/dL Albumin (3.2-5.2) g/dL Globulin (2-4) g/dL Albumin/Globulin Ratio (1-3) Lipase (11.0-82.0) U/L Assess/Plan/Problems-Billing Mr mcgarry is a 31yo M who has a h/o SLE, lupus nephritis, recent admission for 3rd degree HB secondary to Bblocker and plaquenil who presented to the ER with c /o nausea, vomiting and diarrhea. - Patient Problems (1) Viral gastroenteritis Current Visit: Yes Status: Acute Code(s): A08.4 - VIRAL INTESTINAL INFECTION , UNSPECIFIED SNOMED Code(s): 474370921 Comment: Pt is feeling better today. He is ready for d/c home after dialysis. (2) ESRD (end-stage renal disease) due to SLE Current Visit: Yes Status: Acute Code(s): M32.14 - GLOMERULAR DISEASE IN SYSTEMIC LUPUS ERYTHEMATOSUS; N18.6 - END STAGE RENAL DISEASE SNOMED Code(s): 03445909 Comment: Pt is receiving dialysis now and will follow up at his usual dialysis center after discharge. (3) HTN (hypertension) Current Visit: Yes Status: Acute Code(s): I10 - ESSENTIAL (PRIMARY) HYPERTENSION SNOMED Code(s): 48635074 Comment: BP is under fair control. Continue amlodipine. (4) SLE (systemic lupus erythematosus) Current Visit: Yes Status: Acute Code(s): M32.9 - SYSTEMIC LUPUS ERYTHEMATOSUS, UNSPECIFIED SNOMED Code(s): 24463937 Comment: Continue plaquenil and methylprednisolone taper. (5) DVT prophylaxis Current Visit: Yes Status: Acute Code(s): BPD6223 - SNOMED Code(s): 088440712 Comment: SQ heparin (6) Full code status Current Visit: Yes Status: Acute Code(s): Z78.9 - OTHER SPECIFIED HEALTH STATUS SNOMED Code(s): 670521970 Status and Disposition: d/c home
[2016-06-16] MEDS: amLODIPine TAB* 5 MG PO SCH (13:16)
[2016-06-16] MEDS: methylPREDNISolone TAB* 4 MG PO SCH (13:16)
[2016-06-16] MEDS: Simethicone TAB* 80 MG TAB.CHEW PO PRN (13:16)
[2016-06-16] MEDS: Acetaminophen TAB* 325 MG PO PRN (13:16)
[2016-06-16] MEDS: Fluticasone NASAL SPRAY 50MCG* 16 gm SPRAY BTL BOTH NARES SCH (13:17)
--- NOTE | 2016-06-17 14:29 | DS ---
DISCHARGE SUMMARY: DATE OF ADMISSION: 06/14/16 DATE OF DISCHARGE: 06/16/16 PRIMARY CARE PROVIDER: Diego Doshi MD PRINCIPAL DIAGNOSIS: Acute viral gastroenteritis. SECONDARY DIAGNOSES: 1. Lupus with end-stage renal disease felt to be due to lupus nephritis. 2. Chronic anemia. 3. Lactic acidosis - resolved. DISCHARGE MEDICATIONS: 1. Methylprednisone 24 mg p.o. daily to be tapered per outpatient recommendations from Dr. Baugh. 2. Plaquenil 200 mg p.o. b.i.d. 3. Trazodone 25 mg p.o. at bedtime. 4. Renvela 800 mg p.o. q.a.c. 5. Prevacid 30 mg p.o. daily. 6. Flonase 1 squirt to both nostrils daily. 7. Celexa 40 mg p.o. daily. 8. Albuterol 1 neb inhaled q.6 hours p.r.n. shortness of breath. 9. Amlodipine 5 mg p.o. daily. 10. Vitamin B12 500 mcg p.o. daily. 11. Vitamin D 5000 units p.o. daily. HOSPITAL COURSE: Mr. Puri is a 31-year-old male with a history of lupus and end- stage renal disease felt to be due to lupus nephritis. He presented to the emergency room with complaints of nausea, vomiting, and diarrhea. The patient was felt to have likely viral gastroenteritis. Additionally, he is felt to be volume deplete at the time of his admission. The patient was also found to have a mildly elevated lipase level on admission; however, he did not have any symptoms consistent with pancreatitis and it was felt that this was unlikely to be the cause of his symptoms. The patient was admitted and placed on IV fluids. By 06/15/16, the patient was feeling improved; however, still quite lousy. He was not eating much at that time. Additionally, the patient missed his outpatient dialysis appointment on the morning of 06/15/16. The decision was made given his persistent symptoms and hyperkalemia seen on lab work from to keep the patient overnight and have dialysis on the morning of 06/16/16. On vacuum cleaner mechanic of 06/16/16, the patient was feeling quite well. He tolerated his breakfast. He did receive dialysis on the morning of and during dialysis, he felt unwell; however, he states that, that is usual for him. At this point it is felt that the patient is stable for discharge home. Of note, the lipase that was elevated at 476 on admission, had trended down to 88 on 06/15/16, the patient had no symptoms consistent with pancreatitis. I suspect this is likely elevated related to his viral gastroenteritis. At this point, the patient is stable for discharge to home. FOLLOWUP CONCERNS: The patient is being discharged to home today, 06/16/16. He is to follow up with Dr. Doshi on 06/18/16 at 10:30 a.m. ACTIVITY: Activity level is as tolerated. DIET: Regular, as tolerated. CONDITION ON DISCHARGE: Stable. TIME SPENT: Thirty-five minutes was spent discharging this patient. CC: Diego Doshi MD* [id number]/[facility] #: [id number]
== END 2016-06-16 15:10 | disposition home or self-care (01) | DRG 391 ==
LOC: ED 08:34 → MED 12:09 → OBSVTOIN 06-15 14:36
PROVIDERS: ADMIT Internal Medicine; ATTEND Hospitalist
DX: A08.4 Viral intestinal infection, unspecified (principal); N18.6 End stage renal disease; I44.2 Atrioventricular block, complete; M32.9 Systemic lupus erythematosus, unspecified; M32.14 Glomerular disease in systemic lupus erythematosus; E87.2 Acidosis; Z99.2 Dependence on renal dialysis; Z88.8 Allergy status to other drugs, medicaments and biological substances; J45.909 Unspecified asthma, uncomplicated; Z85.53 Personal history of malignant neoplasm of renal pelvis; Z90.5 Acquired absence of kidney; F41.9 Anxiety disorder, unspecified; I12.9 Hypertensive chronic kidney disease with stage 1 through stage 4 chronic kidney disease, or unspecified chronic kidney disease; Z83.3 Family history of diabetes mellitus; F17.210 Nicotine dependence, cigarettes, uncomplicated; D53.9 Nutritional anemia, unspecified; E87.5 Hyperkalemia
CPT/HCPCS: 36415; 71010; 80048; 80053; 83605; 83690; 84100; 84484; 85025; 86140; 87040; 90935; 93005; A9270-GY; G0257; J1644; J2270; J2405; J7509

== ENCOUNTER 2016-07-26 13:18 | Inpatient (IN) | payer MEDICARE, MEDICAID ==
--- NOTE | 2016-07-26 16:21 | RAD ---
HISTORY: Right-sided splinting and chest pain COMPARISONS: July 05, 2016 VIEWS: 2: Frontal dual-energy and lateral views of the chest. FINDINGS: CARDIOMEDIASTINAL SILHOUETTE: There is mild cardiomegaly, progressed from the previous examination. DAYAN: The dayan are normal. PLEURA: The costophrenic angles are sharp. No pleural abnormalities are noted. LUNG PARENCHYMA: The lungs are clear. ABDOMEN: The upper abdomen is clear. There is no subphrenic gas. BONES AND SOFT TISSUES: No bone or soft tissue abnormalities are noted. OTHER: None. IMPRESSION: PROGRESSION OF CARDIOMEGALY
[2016-07-26 16:39] LABS: Hematocrit 38 % (42-52); Hemoglobin 12.2 g/dl (14.0-18.0); Mean Corpuscular HGB Conc 32 g/dl (31-36); Mean Corpuscular Hemoglobin 33 pg (27-31); Mean Corpuscular Volume 101 fL (80-94); Mean Platelet Volume 10 um3 (7.4-10.4); Red Blood Count 3.76 10^6/ul (4.0-5.4); Red Cell Distribution Width 17 % (10.5-15); Urine Bacteria 1+ (Absent); Urine Bilirubin Negative (Negative); Urine Glucose 2+(150 mg/dL) (Negative); Urine Nitrite Negative (Negative)
[2016-07-26 16:54] LABS: Troponin I 0.01 ng/mL (<0.04)
[2016-07-26 17:08] LABS: Albumin 4.5 g/dL (3.2-5.2); BUN/Creatinine Ratio 5.1 (8-20); C Reactive Protein 38.09 mg/L (< 5.00); Calcium 9.7 mg/dL (8.6-10.3); EGFR African American 5.9 (>60); EGFR Non-African American 4.6 (>60); Globulin 2.8 g/dL (2-4); Magnesium 2.8 mg/dL (1.9-2.7); Potassium 5.1 mmol/L (3.5-5.0); Total Bilirubin 0.3 mg/dL (0.2-1.0); Total Protein 7.3 g/dL (6.4-8.9)
[2016-07-26] MEDS ORDERED: Morphine INJ* 4 MG/ML 1 ML SYRINGE IV ONE (17:49)
[2016-07-26] MEDS ORDERED: Ondansetron INJ* 2 MG/ML VIAL IV ONE (17:49)
[2016-07-26] MEDS ORDERED: methylPREDNISolone SOD SUCC* 125 MG 2 ML VIAL IV ONE (17:49)
--- NOTE | 2016-07-26 18:47 | ED ---
Poppy Ibrahim Matthew, scribed for Shane Aranda MD on 07/26/16 at 1742 . Upper Extremity Pain - HPI Summary HPI Summary: A 31 y/o male presents to the ED with right shoulder/neck pain since 07/22. The pain is rated 9/10 in severity. Associated symptoms include nausea. The patient denies abdominal pain, fever, chills, cough, and SOB. The pain is worse with deep breaths, and states that its similar to the pain he experienced during pericarditis. Hx of lupus. The patient is on dialysis. The patient's mr teacher is Dr. Arango. - History of Current Complaint Chief Complaint: EDShouldSafiaj Stated Complaint: NECK PAIN Time Seen by Provider: 07/26/16 17:08 Hx Obtained From: Patient Mechanism Of Injury: Unknown Onset/Duration: Started Days Ago, Atraumatic, Still Present Timing: Constant Severity Initially: Moderate Severity Currently: Moderate Pain Location: Shoulder - RT, Other: - RT neck Aggravating Factor(s): Other - Deep Breaths Alleviating Factor(s): Other - The patient has some pain relief when pacing. Associated Signs & Symptoms: Positive: Neck Pain, Nausea. Negative: Fever, Chest Pain, SOB - Allergies/Home Medications Allergies/Adverse Reactions: Allergies Allergy/AdvReac Type Severity Reaction Status Date / Time Hydralazine Allergy Shortness Verified 05/02/16 10:00 of Breath Prednisone AdvReac Hallucinati Verified 05/20/16 15:13 ons Home Medications: Home Medications Cholecalciferol TAB* [Vitamin D TAB*] 2,000 units PO DAILY 07/26/16 [History Confirmed 07/26/16] Colchicine* [Colcrys*] 0.6 mg PO DAILY 07/26/16 [History Confirmed 07/26/16] Sertraline* [Zoloft*] 50 mg PO DAILY 07/26/16 [History Confirmed 07/26/16] amLODIPine TAB* [Norvasc TAB*] 10 mg PO DAILY 07/26/16 [History Confirmed ] methylPREDNISolone TAB* [Medrol TAB*] 16 mg PO DAILY 07/26/16 [History Confirmed 07/26/16] traMADol TAB* [Ultram*] 50 mg PO DAILY PRN MDD 50 mg 07/26/16 [History Confirmed 07/26/16] traZODone TAB* [Desyrel TAB*] 50 mg PO BEDTIME PRN 07/26/16 [History Confirmed 07/26/16] PMH/Surg Hx/FS Hx/Imm Hx Endocrine/Hematology History: Reports: Hx Systemic Lupus Erythematosus Denies: Hx Diabetes, Hx Thyroid Disease Cardiovascular History: Reports: Hx Hypertension Denies: Hx Peripheral Vascular Disease Comment Only: Other Cardiovascular Problems/Disorders - Hx LUPUS Respiratory History: Reports: Hx Asthma, Hx Seasonal Allergies, Other Respiratory Problems/Disorders - Hx pleurisy. History: Reports: Hx Dialysis - TTS, Other Problems/Disorders - Kidney cancer, unilateral nephrectomy Musculoskeletal History: Reports: Other Musculoskeletal History - Lupus: generlized pain Denies: Hx Arthritis, Hx Osteoporosis Sensory History: Reports: Hx Contacts or Glasses Opthamlomology History: Reports: Hx Contacts or Glasses Neurological History: Denies: Hx Seizures, Hx Transient Ischemic Attacks (TIA) Psychiatric History: Reports: Hx Anxiety - Cancer History Cancer Type, Location and Year: Kidney cancer, September 2014 in [place]. Hx Chemotherapy: Yes - For lupus. - Surgical History Surgery Procedure, Year, and Place: Nephrectomy, splenectomy, Inguinal hernia repaired, multiple fistula placements. Hx Anesthesia Reactions: No Infectious Disease History: Denies: Hx of Known/Suspected MRSA, Traveled Outside the in Last 30 Days - Family History Known Family History: Positive: Hypertension, Diabetes - Social History Alcohol Use: None Substance Use Type: Reports: None Smoking Status (MU): Unknown if Ever Smoked Type: Cigarettes Amount Used/How Often: 3 cigs per day Length of Time of Smoking/Using Tobacco: 18 years Have You Smoked in the Last Year: Yes Review of Systems Constitutional: Negative Negative: Fever, Chills Eyes: Negative ENT: Negative Cardiovascular: Negative Respiratory: Negative Negative: Shortness Of Breath Positive: Nausea. Negative: Abdominal Pain Genitourinary: Negative Positive: Myalgia - RT shoulder and neck pain Skin: Negative Neurological: Negative Psychological: Normal All Other Systems Reviewed And Are Negative: Yes Physical Exam Triage Information Reviewed: Yes Vital Signs On Initial Exam: Initial Vitals Temp Pulse Resp BP Pulse Ox 98.2 F 100 18 155/89 100 07/26/16 13:19 07/26/16 13:19 07/26/16 13:19 07/26/16 13:19 07/26/16 13:19 Vital Signs Reviewed: Yes Appearance: Positive: Pain Distress - mild-moderate pain distress. The patient is pacing around the room. Skin: Positive: Warm, Dry Head/Face: Positive: Normal Head/Face Inspection Eyes: Positive: EOMI, ZACHARY ENT: Positive: Normal ENT inspection Neck: Positive: Supple, Nontender Respiratory/Lung Sounds: Positive: Clear to Auscultation, Breath Sounds Present Cardiovascular: Positive: Murmur, Tachycardia Abdomen Description: Positive: Nontender, Soft Bowel Sounds: Positive: Present Musculoskeletal: Positive: Strength/ROM Intact Neurological: Positive: Alert, Oriented to Person Place, Time Psychiatric: Positive: Affect/Mood Appropriate Diagnostics - Vital Signs Vital Signs Temp Pulse Resp BP Pulse Ox 07/26/16 16:46 99.2 F 93 18 149/81 97 07/26/16 16:03 98.9 F 89 18 149/90 97 07/26/16 13:19 98.2 F 100 18 155/89 100 - Laboratory Lab Results: Lab Results 07/26/16 07/26/16 07/26/16 Range/Units 16:19 16:19 16:19 WBC 13.0 H (3.5-10.8) 10^3/ul RBC 3.76 L (4.0-5.4) 10^6/ul Hgb 12.2 L (14.0-18.0) g/dl Hct 38 L (42-52) % MCV 101 H (80-94) fL MCH 33 H (27-31) pg MCHC 32 (31-36) g/dl RDW 17 H (10.5-15) % Plt Count 245 (150-450) 10^3/ul MPV 10 (7.4-10.4) um3 Neut % (Auto) 82.0 (38-83) % Lymph % (Auto) 10.8 L (25-47) % [place] % (Auto) 6.6 (1-9) % Eos % (Auto) 0.1 (0-6) % Baso % (Auto) 0.5 (0-2) % Absolute Neuts (auto) 10.7 H (1.5-7.7) 10^3/ul Absolute Lymphs (auto) 1.4 (1.0-4.8) 10^3/ul Absolute Monos (auto) 0.9 H (0-0.8) 10^3/ul Absolute Eos (auto) 0 (0-0.6) 10^3/ul Absolute Basos (auto) 0.1 (0-0.2) 10^3/ul Absolute Nucleated RBC 0 10^3/ul Nucleated RBC % 0 INR (Anticoag Therapy) 0.81 L (0.89-1.11) APTT 27.2 (26.0-36.3) seconds D-Dimer, Quantitative < 200 (Less Than 230) ng/mL Sodium (133-145) mmol/L Potassium (3.5-5.0) mmol/L Chloride (101-111) mmol/L Carbon Dioxide (22-32) mmol/L Anion Gap (2-11) mmol/L BUN (6-24) mg/dL Creatinine (0.67-1.17) mg/dL Est GFR ( Amer) (>60) Est GFR (Non-Af Amer) (>60) BUN/Creatinine Ratio (8-20) Glucose (70-100) mg/dL Lactic Acid (0.5-2.0) mmol/L Calcium (8.6-10.3) mg/dL Magnesium (1.9-2.7) mg/dL Total Bilirubin (0.2-1.0) mg/dL AST (13-39) U/L ALT (7-52) U/L Alkaline Phosphatase (34-104) U/L Total Creatine Kinase (10-223) U/L CK-MB (CK-2) (0.6-6.3) ng/mL Troponin I (<0.04) ng/mL C-Reactive Protein (< 5.00) mg/L B-Natriuretic Peptide ( - 100) pg/mL Total Protein (6.4-8.9) g/dL Albumin (3.2-5.2) g/dL Globulin (2-4) g/dL Albumin/Globulin Ratio (1-3) Lipase (11.0-82.0) U/L TSH (0.34-5.60) mcIU/mL Urine Color Yellow Urine Appearance Clear Urine pH 8.0 (5-9) Ur Specific [place] 1.011 (1.010-1.030) Urine Protein 2+(100 mg/dl) H (Negative) Urine Ketones Negative (Negative) Urine Blood Negative (Negative) Urine Nitrate Negative (Negative) Urine Bilirubin Negative (Negative) Urine Urobilinogen Negative (Negative) Ur Leukocyte Esterase Negative (Negative) Urine WBC (Auto) Trace(0-5/hpf) (Absent) Urine RBC (Auto) Trace(0-2/hpf) (Absent) Urine Bacteria 1+ H (Absent) Urine Glucose 2+(150 mg/dl) H (Negative) 07/26/16 07/26/16 07/26/16 Range/Units 16:19 16:19 16:19 WBC (3.5-10.8) 10^3/ul RBC (4.0-5.4) 10^6/ul Hgb (14.0-18.0) g/dl Hct (42-52) % MCV (80-94) fL MCH (27-31) pg MCHC (31-36) g/dl RDW (10.5-15) % Plt Count (150-450) 10^3/ul MPV (7.4-10.4) um3 Neut % (Auto) (38-83) % Lymph % (Auto) (25-47) % [place] % (Auto) (1-9) % Eos % (Auto) (0-6) % Baso % (Auto) (0-2) % Absolute Neuts (auto) (1.5-7.7) 10^3/ul Absolute Lymphs (auto) (1.0-4.8) 10^3/ul Absolute Monos (auto) (0-0.8) 10^3/ul Absolute Eos (auto) (0-0.6) 10^3/ul Absolute Basos (auto) (0-0.2) 10^3/ul Absolute Nucleated RBC 10^3/ul Nucleated RBC % INR (Anticoag Therapy) (0.89-1.11) APTT (26.0-36.3) seconds D-Dimer, Quantitative (Less Than 230) ng/mL Sodium 132 L (133-145) mmol/L Potassium 5.1 H (3.5-5.0) mmol/L Chloride 91 L (101-111) mmol/L Carbon Dioxide 26 (22-32) mmol/L Anion Gap 15 H (2-11) mmol/L BUN 65 H (6-24) mg/dL Creatinine 12.67 H (0.67-1.17) mg/dL Est GFR ( Amer) 5.9 (>60) Est GFR (Non-Af Amer) 4.6 (>60) BUN/Creatinine Ratio 5.1 L (8-20) Glucose 95 (70-100) mg/dL Lactic Acid 0.7 (0.5-2.0) mmol/L Calcium 9.7 (8.6-10.3) mg/dL Magnesium 2.8 H (1.9-2.7) mg/dL Total Bilirubin 0.30 (0.2-1.0) mg/dL AST 6 L (13-39) U/L ALT 11 (7-52) U/L Alkaline Phosphatase 46 (34-104) U/L Total Creatine Kinase 62 (10-223) U/L CK-MB (CK-2) 1.3 (0.6-6.3) ng/mL Troponin I 0.01 (<0.04) ng/mL C-Reactive Protein 38.09 H (< 5.00) mg/L B-Natriuretic Peptide 56 ( - 100) pg/mL Total Protein 7.3 (6.4-8.9) g/dL Albumin 4.5 (3.2-5.2) g/dL Globulin 2.8 (2-4) g/dL Albumin/Globulin Ratio 1.6 (1-3) Lipase 424 H (11.0-82.0) U/L TSH 1.00 (0.34-5.60) mcIU/mL Urine Color Urine Appearance Urine pH (5-9) Ur Specific [place] (1.010-1.030) Urine Protein (Negative) Urine Ketones (Negative) Urine Blood (Negative) Urine Nitrate (Negative) Urine Bilirubin (Negative) Urine Urobilinogen (Negative) Ur Leukocyte Esterase (Negative) Urine WBC (Auto) (Absent) Urine RBC (Auto) (Absent) Urine Bacteria (Absent) Urine Glucose (Negative) Result Diagrams: 07/26/16 16:19 07/26/16 16:19 Lab Statement: Any lab studies that have been ordered have been reviewed, and results considered in the medical decision making process. - Radiology CXR Xray Interpretation: No Acute Changes - IMPRESSION: PROGRESSION OF CARDIOMEGALY Radiology Interpretation Completed By: Radiologist - EKG 13:29 Cardiac Rate: NL - 97 bpm EKG Rhythm: Sinus Rhythm Ectopy: None EKG Interpretation: Peaked T Waves in the anterior leads; Flipped T Waves in III and aVF Course/Dx - Course Assessment/Plan: DISCUSSED WITH DR TSAI, CARDIOLOGY. ADMIT HOSPITALIST STABLE. - Diagnoses Provider Diagnoses: CHEST PAIN, POSSIBLE PERICARDITIS - Physician Notifications Discussed Care Of Patient With: Dr. Burns (Hospitalist) at 17:27 -- Notified of patient's history and will admit the patient into her services. Discharge - Discharge Plan Condition: Stable Disposition: ADMITTED TO [facility] documentation as recorded by the Poppy mcmillan Matthew accurately reflects the service I personally performed and the decisions made by me, Shane Aranda MD.
[2016-07-26] MEDS ORDERED: Albuterol 2.5 MG/3 ML NEB.SOL* (0.083%) INH PRN (18:57)
[2016-07-26] MEDS ORDERED: traZODone TAB* 50 MG TAB PO PRN (18:58)
[2016-07-26] MEDS: oxyCODONE/Acetamin 5/325 MG* TAB PO PRN (20:09)
[2016-07-26] MEDS: Colchicine* 0.6 MG TAB PO SCH (20:09)
[2016-07-26] MEDS: Hydroxychloroquine TAB* 200 MG PO SCH (20:09)
[2016-07-26] MEDS: Morphine INJ* 4 MG/ML 1 ML SYRINGE IV PRN (22:55)
--- NOTE | 2016-07-27 02:32 | HP ---
HISTORY AND PHYSICAL:* DATE OF ADMISSION: 07/26/16 PRIMARY CARE PROVIDER: Diego Doshi MD ADDENDUM: Addendum to history and physical dictated by Jolanta Nolan NP. Mr. Puri is a 31-year-old male with history of SLE as well as end-stage renal disease with lupus, who presents complaining of neck pain. The patient is going to be admitted with a working diagnosis of possibility of recurrence of lupus carditis. For further details of patient's presentation and plan, please see history and physical dictated by Jolanta Nolan NP, on 07/26/16 with which I agree. DEANNE VALDEZ MD CC: Dr. Doshi; Dr. Baugh* [id number]/[facility] #: [id number] MTDD
--- NOTE | 2016-07-27 02:50 | HP ---
ATTENDING ADDENDUM NOW INCLUDED ON THIS REPORT HOSPITAL MEDICINE HISTORY AND PHYSICAL: DATE OF ADMISSION: 07/26/16 PRIMARY CARE PHYSICIAN: Dr. Valentine in [place]. TEST SPECIALIST: Dr. Baugh. ATTENDING PHYSICIAN: Dr. Kizzy Maguire *(dictation provided by Jolanta Nolan NP) . CHIEF COMPLAINT: Neck pain. HISTORY OF PRESENT ILLNESS: Mr. Puri is a 31-year-old male with a past medical history of lupus with end-stage renal disease as well as repeat episodes of pericarditis, who presents to the hospital today with concern for neck pain. Mr. Puri states that he has felt unwell for 2 to 3 months. Over the course of time, he has been admitted to our hospital in June with discharge on 06/16/16 where he was treated for acute viral gastroenteritis. He was also here in May and discharged on May 04 with concern for pericarditis secondary to lupus, and again on May 22, where he was admitted with third-degree heart block secondary to Plaquenil and beta blockers. Mr. Puri states he has been following with Dr. Baugh for his ongoing chronic complaints. Today he presents with complaint of pain in the right side of his neck that is worse with deep inspiration. He denies any injury to the neck. He denies chest pain or shortness of breath. He states that the pain is worse with lying down and he actually feels better when he is up and active. He has been seeing Dr. Baugh for this complaint who obtained an xray, which per the patient's report, showed no fracture. Dr. Baugh has been adjusting his methylprednisolone, the highest dose has been 8 pills a day and it is now down to 4 pills a day. Despite these adjustments to his steroid doses as well as an increase in his colchicine he has continued to feel poorly with primary complaint of neck pain. In the emergency room, Mr. Puri has a mild leukocytosis, and a mild anemia, which is consistent with previous. His BUN and creatinine are elevated consistent with his history of end-stage renal disease, his CRP is 38.09, which is up from his last admission back in June. His urinalysis is negative. His chest x-ray shows an enlarged heart with worsening cardiomegaly. PAST MEDICAL HISTORY: 1. Lupus with lupus nephritis and end-stage renal disease, on hemodialysis. 2. History of third-degree heart block with admission to our hospital in May 2016, felt secondary to medications. 3. History of lupus pericarditis. 4. Hypertension. 5. History of splenectomy. MEDICATIONS: Outpatient are: 1. Methylprednisolone 16 mg p.o. daily. 2. Tramadol 50 mg p.o. daily. 3. Albuterol via nebulizer inhaled p.r.n. 4. Cholecalciferol 2000 units p.o. daily. 5. Colchicine 0.6 mg p.o. b.i.d. 6. Cyanocobalamin 500 mcg p.o. daily. 7. Fluticasone nasal spray 50 mcg both nares daily. 8. Plaquenil 200 mg p.o. b.i.d. 9. Sertraline 50 mg p.o. daily. 10. Sevelamer 800 mg p.o. with meals. 11. Amlodipine 10 mg p.o. daily. 12. Trazodone 50 mg p.o. at bedtime. ALLERGIES: HYDRALAZINE and PREDNISONE. FAMILY HISTORY: The patient reports that his mom and dad are still alive, both have diabetes, his father has dementia. He reports that one of his grandmothers has lupus, but he is not sure on which side of the family. SOCIAL HISTORY: No report of alcohol, tobacco, or drug use. The patient lives with his sister, Tammy, who would be his healthcare proxy. REVIEW OF SYSTEMS: A 14-point review of systems was completed with Mr. Puri and all those not mentioned above were negative. PHYSICAL EXAMINATION GENERAL: Mr. Puri is sitting up in the bed. He is in no acute distress. He is calm and cooperative with my examination. VITAL SIGNS: Temperature 98.4, heart rate 85, respiratory rate 18, O2 saturation 97% on room air, blood pressure 154/91. HEART: S1, S2. No murmur, rub, or gallop appreciated today. LUNGS: Clear to auscultation bilaterally with no accessory muscle use and good aeration. ABDOMEN: Soft, nontender with bowel sounds positive x4. EXTREMITIES: No cyanosis or edema. SKIN: Intact. NEUROLOGIC: He is alert and oriented x3. He moves all extremities equally. There is no facial asymmetry or focal weakness. Extraocular movements are intact. He has good range of motion of the neck. DIAGNOSTIC STUDIES/LAB DATA: WBC 13.0, hemoglobin 12.2, hematocrit 38, platelet count 245. INR 0.81. Sodium 132, potassium 5.1, chloride 91, serum bicarbonate 26, BUN 65, creatinine 12.67, glucose 95, lactic acid 0.7. CRP 38.09. Troponin 0.01. Urine shows no evidence of infection. Chest x-ray shows progression of cardiomegaly. EKG shows sinus rhythm with a heart rate in the 90s with no evidence of ischemia. ASSESSMENT: Mr. Puri is a 31-year-old male with past medical history of lupus with history of lupus nephritis and end-stage renal disease and history of multiple episodes of pericarditis, who presents today to the hospital with complaint of neck pain. Our plan is for observation in the hospital for the followin. Neck pain: Mr. Puri's pain is an unusual manifestation of his lupus. Certainly, he has no evidence of trauma to the area. He reports having an x- ray at Dr. Baugh's office with no evidence of injury. There is no pain with palpation today and again he has good range of motion. I question whether or not his pain is a referred pain from pericarditis. Our plan will be to treat symptomatically with morphine and oxycodone p.r.n. and to treat for pericarditis. I do not see any indication for further imaging. 2. Lupus: The patient again has no chest pain or shortness of breath, and I am concerned that the neck pain is perhaps a referred pain from pericarditis given his progression of his cardiomegaly on the chest x-ray as well as his elevated CRP and white blood cell count. Our plan will be to treat with dexamethasone 4 mg p.o. t.i.d., which is the dose that had been used previously under the direction of Dr. Baugh for pericarditis. We will follow up closely with Dr. Baugh in the morning regarding the dosage of this medication and further treatment and recommendations. The patient will have a transthoracic echocardiogram tomorrow. He will also continue on his colchicine, which is at 0.6 mg p.o. b.i.d. 3. End-stage renal disease, on hemodialysis. The patient states that he normally takes dialysis on Tuesday, , and Tuesday, but the plan had been for him to start dialysis in [place] today, Tuesday, and to switch over to Tuesday, Tuesday, Tuesday schedule. I have attempted to call the dialysis unit , but I am unable to reach them or Dr. Flores. Plans will be reach out to them first thing in the morning regarding scheduling of dialysis as needed while he is here in the hospital. 4. Hypertension. Continue amlodipine. 5. DVT prophylaxis with early mobility. 6. Disposition to the telemetry floor. TIME SPENT: Approximately 60 minutes were spent in admission of this patient, more than half the time was spent with him at the bedside reviewing the events leading up to this hospitalization, performing the physical examination, and reviewing the plan of care. JOLANTA NOLAN NP DATE OF ADMISSION: 07/26/16 PRIMARY CARE PROVIDER: Diego Doshi MD ADDENDUM: Addendum to history and physical dictated by Jolanta Nolan NP. Mr. Puri is a 31-year-old male with history of SLE as well as end-stage renal disease with lupus, who presents complaining of neck pain. The patient is going to be admitted with a working diagnosis of possibility of recurrence of lupus carditis. For further details of patient's presentation and plan, please see history and physical dictated by Jolanta Nolan NP, on 07/26/16 with which I agree. KIZZY MAGUIRE MD CC: Dr. Valentine in [place]; Dr. Baugh* CC: Dr. Doshi; Dr. Baugh* [id number]/[facility] #: [id number]/[facility] #: [id number] DARRELL
[2016-07-27] MEDS: oxyCODONE/Acetamin 5/325 MG* TAB PO PRN ×4 (03:18→20:33)
[2016-07-27] MEDS: Morphine INJ* 4 MG/ML 1 ML SYRINGE IV PRN ×4 (05:09→22:26)
[2016-07-27 06:00] LABS: Hematocrit 37 % (42-52); Hemoglobin 11.9 g/dl (14.0-18.0); Mean Corpuscular HGB Conc 32 g/dl (31-36); Mean Corpuscular Hemoglobin 33 pg (27-31); Mean Corpuscular Volume 101 fL (80-94); Mean Platelet Volume 10 um3 (7.4-10.4); Red Blood Count 3.64 10^6/ul (4.0-5.4); Red Cell Distribution Width 17 % (10.5-15); White Blood Count 8.9 10^3/ul (3.5-10.8)
[2016-07-27 06:13] LABS: BUN/Creatinine Ratio 5.9 (8-20); Calcium 9.5 mg/dL (8.6-10.3); EGFR African American 4.9 (>60); EGFR Non-African American 3.8 (>60)
[2016-07-27 06:25] LABS: Potassium 6.4 mmol/L (3.5-5.0)
[2016-07-27] MEDS: Sevelamer TAB* 800 MG PO SCH ×3 (09:02→16:57)
[2016-07-27] MEDS: Hydroxychloroquine TAB* 200 MG PO SCH ×2 (09:08→20:33)
[2016-07-27] MEDS: Cholecalciferol TAB* 1000 UNITS PO SCH (09:08)
[2016-07-27] MEDS: Sertraline* 50 MG TAB PO SCH (09:08)
[2016-07-27] MEDS: Cyanocobalamin TAB* 500 MCG PO SCH (09:09)
[2016-07-27] MEDS: Colchicine* 0.6 MG TAB PO SCH ×2 (09:09→20:34)
[2016-07-27] MEDS: amLODIPine TAB* 5 MG PO SCH (09:09)
[2016-07-27] MEDS: Dexamethasone TAB* 4 MG PO SCH ×2 (09:09→17:10)
[2016-07-27] MEDS: Fluticasone NASAL SPRAY 50MCG* 16 gm SPRAY BTL BOTH NARES SCH (09:10)
--- NOTE | 2016-07-27 10:52 | ECHO ---
Patient: ANGIE KAPOOR [facility] Rec#: [id number] : 1985 Date: 07/27/2016 Age: 31y Height: 172.72 cm / 68.0 in Weight: 79.38 kg / 175.0 lbs Sex: M BSA: 1.93 Room#: [facility] Admit Date#: 07/26/2016 Type: Inpatient Referring: Jolanta Nolan NP Reading: Victor M Gr MD Health Researcher: Diane Lee Health Researcher: Nolvia Martin RDCS CC: Diego Doshi MD Transthoracic Echocardiogram Indication: Pericarditis, chest pain BP: 126/62 HR: 86 Rhythm: NSR Findings History: Lupus, renal cell carcinoma, ESRD with hemodialysis, smoker, pericarditis, HTN, unilateral nephrectomy. Technical Comments: The study is technically limited due to the patient's smoking history. Completed at 1038. Left Ventricle: The left ventricular chamber size is normal. Mild to moderate concentric left ventricular hypertrophy is observed. Global left ventricular wall motion and contractility are within normal limits. There is normal left ventricular systolic function. The estimated ejection fraction is 55-60%. There is no consistent Doppler evidence of clinically significant diastolic dysfunction. Left Atrium: The left atrium is mildly dilated. Right Ventricle: The right ventricular cavity size is normal. The right ventricular global systolic function is normal. Right Atrium: The right atrium is moderately dilated. Aortic Valve: The aortic valve is trileaflet. There is no evidence of aortic regurgitation. There is no evidence of aortic stenosis. Mitral Valve: The mitral valve leaflets are mildly thickened. There is mild to moderate mitral regurgitation. The mitral regurgitant jet is laterally directed. The mitral regurgitant jet is eccentric. There is no evidence of mitral stenosis. Tricuspid Valve: The tricuspid valve leaflets are normal. There is trace to mild tricuspid regurgitation. No pulmonary hypertension is noted. There is no tricuspid stenosis. Pulmonic Valve: The pulmonic valve appears normal. There is a trace pulmonic regurgitation. There is no pulmonic stenosis. Pericardium: There is no significant pericardial effusion. Aorta: There is no dilatation of the ascending aorta. There is no dilatation of the aortic arch. There is no dilation of the aortic root. Pulmonary Artery: The main pulmonary artery appears normal. Venous: The inferior vena cava appears normal in size. There is a greater than 50% respiratory change in the inferior vena cava dimension. Conclusions Mild to moderate concentric left ventricular hypertrophy is observed. Global left ventricular wall motion and contractility are within normal limits. The estimated ejection fraction is 55-60%. The left atrium is mildly dilated. There is mild to moderate mitral regurgitation. The mitral regurgitant jet is eccentric. There is trace to mild tricuspid regurgitation. There is a trace pulmonic regurgitation. No significant pericardial effusion is seen. Compared to report of study from 05/17/2016 the tricuspid regurgitation is less (was reported as moderate) and the mitral regurgitation is mildly worse (was reported as mild). Measurements Name Value Normal Range RVIDd (AP) 2D 2.9 cm (0.9 - 2.6) RVDdMajor (2D) 4.3 cm (2.2 - 4.4) RAd ISD 4CH 5.7 cm (3.4 - 4.9) RA (A4C)W 5.5 cm (2.9 - 4.6) IVSd (2D) 1.2 cm (0.6 - 1) LVPWd (2D) 1.4 cm (0.6 - 1) LVIDd (2D) 4.4 cm (3.6 - 5.4) LVIDs (2D) 3.1 cm - LV FS (2D) 28 % (25 - 45) Aortic Annulus 2.3 cm (1.4 - 2.6) Ao root diameter (2D) 3.3 cm (2.1 - 3.5) Ascending Ao 3.3 cm (2.1 - 3.4) Aortic arch 2.6 cm (1.8 - 3.4) Descending Ao 0.9 cm - LA dimension (AP) 2D 4.4 cm (2.3 - 3.8) LAd ISD 4CH 6.3 cm (2.9 - 5.3) LA ISD 4CH W 4.1 cm (2.5 - 4.5) Name Value Normal Range LA ESV SP 4CH (A/L) 64 ml - LA ESV SP 2CH (A/L) 97 ml - LA ESV BP (A/L) 79 ml - LA ESV BP (A/L) index 40.98 ml/m2 - LA ESV SP 4CH (MOD) 61 ml - LA ESV SP 2CH (MOD) 95 ml - Name Value Normal Range MV E-wave Vmax 1 m/sec - MV deceleration time 137 msec - MV A-wave Vmax 0.7 m/sec - MV E:A ratio 1.4 ratio - LV septal e' Vmax 0.06 m/sec - LV lateral e' Vmax 0.11 m/sec - LV E:e' septal ratio 16.67 ratio - LV E:e' lateral ratio 9.09 ratio - Name Value Normal Range AV Vmax 1.7 m/sec - AV VTI 32 cm - AV peak gradient 11.6 mmHg - AV mean gradient 5.45 mmHg - LVOT Vmax 1.5 m/sec - LVOT VTI 25 cm - LVOT peak gradient 8.84 mmHg - LVOT mean gradient 4.3 mmHg - MARLON Vmax 0.9 m/sec - MARLON peak gradient 3.22 mmHg - Name Value Normal Range TR Vmax 1.7 m/sec - TR peak gradient 11 mmHg - RAP 3 mmHg - RVSP 14 mmHg - IVC diameter 1.2 cm - Name Value Normal Range PV Vmax 1 m/sec - PV peak gradient 4.35 mmHg -
[2016-07-27] MEDS: Omeprazole CAP* 20 MG PO SCH (13:08)
[2016-07-27] MEDS: Calcium Carbonate CHEW TAB* 500 MG (TUMS) PO PRN ×3 (13:08→21:33)
[2016-07-27] MEDS ORDERED: Pregabalin CAP(*) 25 MG PO ONE (16:50)
[2016-07-27] MEDS: methylPREDNISolone TAB* 4 MG PO SCH (16:57)
--- NOTE | 2016-07-27 18:31 | CONSULT ---
Consult Consult: See full consult dictated. Mr. Puri is a 31 year old man with ESRD now with recurrent neck pain and symptoms of recurrent pericarditis. He is symptomatically improved with one dose of IV steroids and is back on baseline dose of Medrol with Colchicine. In terms of further preventative management, consider adding back Cellcept to Plaquenil, as the combination therapy has not been tested together but this can wait until his acute inflammation subsides. Will check complements and DSDNA levels
--- NOTE | 2016-07-27 19:43 | PN ---
Subjective Date of Service: 07/27/16 Interval History: Pt is feeling poorly after dialysis. He states he feels quite restless which is usual after dialysis but worse because of the neck pain. He describes the pain in the R posterior neck. He describes the pain as sharp, shooting down the neck with deep inspiration. Objective Active Medications: Albuterol (Ventolin 2.5 Mg/3 Ml Neb.Eva*) 2.5 mg INH Q6H PRN PRN Reason: SOB/WHEEZING Amlodipine Besylate (Norvasc Tab*) 10 mg PO DAILY [facility] Last Admin: 07/27/16 09:09 Dose: 10 mg Calcium Carbonate (Tums*) 500 mg PO Q4H PRN PRN Reason: INDIGESTION Last Admin: 07/27/16 17:07 Dose: 500 mg Cholecalciferol (Vitamin D Tab*) 2,000 units PO DAILY [facility] Last Admin: 07/27/16 09:08 Dose: 2,000 units Colchicine (Colcrys*) 0.6 mg PO BID [facility] Last Admin: 07/27/16 09:09 Dose: 0.6 mg Cyanocobalamin (Vitamin B12 Tab*) 500 mcg PO DAILY [facility] Last Admin: 07/27/16 09:09 Dose: 500 mcg Fluticasone Propionate (Flonase Nasal [place] 50mcg*) 1 spray BOTH NARES DAILY [facility] Last Admin: 07/27/16 09:10 Dose: Not Given Hydroxychloroquine Sulfate (Plaquenil Tab*) 200 mg PO BID [facility] Last Admin: 07/27/16 09:08 Dose: 200 mg Methylprednisolone (Medrol Tab*) 16 mg PO DAILY [facility] Last Admin: 07/27/16 16:57 Dose: 16 mg Morphine Sulfate (Morphine Inj (Syringe)*) 4 mg IV Q4H PRN PRN Reason: PAIN Last Admin: 07/27/16 16:57 Dose: 4 mg Omeprazole (Prilosec Cap*) 20 mg PO 0600 [facility] Last Admin: 07/27/16 13:08 Dose: 20 mg Oxycodone/Acetaminophen (Percocet 5/325 Tab*) 2 tab PO Q4H PRN PRN Reason: PAIN Last Admin: 07/27/16 15:34 Dose: 2 tab Pregabalin (Lyrica Cap(*)) 25 mg PO DAILY [facility] Sertraline HCl (Zoloft*) 50 mg PO DAILY [facility] Last Admin: 07/27/16 09:08 Dose: 50 mg Sevelamer Carbonate (Renvela Tab*) 800 mg PO AC [facility] Last Admin: 07/27/16 16:57 Dose: 800 mg Trazodone HCl (Desyrel Tab*) 50 mg PO BEDTIME PRN PRN Reason: INSOMNIA Vital Signs 07/26/16 07/26/16 07/26/16 20:00 20:09 22:09 Temperature Pulse Rate Respiratory 20 18 20 Rate Blood Pressure (mmHg) O2 Sat by Pulse Oximetry 07/26/16 07/26/16 07/27/16 22:55 23:55 00:42 Temperature 98.2 F Pulse Rate 87 Respiratory 20 16 16 Rate Blood Pressure 139/73 (mmHg) O2 Sat by Pulse 96 Oximetry 07/27/16 07/27/16 07/27/16 00:50 03:18 03:32 Temperature 97.8 F Pulse Rate 74 Respiratory 18 16 16 Rate Blood Pressure 126/62 (mmHg) O2 Sat by Pulse 97 Oximetry 07/27/16 07/27/16 07/27/16 05:09 05:18 06:09 Temperature Pulse Rate Respiratory 20 18 18 Rate Blood Pressure (mmHg) O2 Sat by Pulse Oximetry 07/27/16 07/27/16 07/27/16 08:00 08:08 09:05 Temperature 98.4 F Pulse Rate 70 Respiratory 16 16 14 Rate Blood Pressure 116/61 (mmHg) O2 Sat by Pulse 96 Oximetry 07/27/16 07/27/16 07/27/16 10:44 11:05 11:48 Temperature 97.9 F Pulse Rate 82 Respiratory 20 20 16 Rate Blood Pressure 143/82 (mmHg) O2 Sat by Pulse 97 Oximetry 07/27/16 07/27/16 07/27/16 15:34 16:57 18:02 Temperature Pulse Rate Respiratory 16 20 16 Rate Blood Pressure (mmHg) O2 Sat by Pulse Oximetry Oxygen Devices in Use Now: None Appearance: Young male pacing around the room, NAD Eyes: No Scleral Icterus Ears/Nose/Mouth/Throat: Mucous Membranes Moist Neck: - - No muscle tightness or pain on palpation of the posterior neck Respiratory: Symmetrical Chest Expansion and Respiratory Effort, Clear to Auscultation Cardiovascular: NL Sounds; No Murmurs; No JVD, RRR, No Edema Abdominal: NL Sounds; No Tenderness; No Distention Extremities: No Clubbing, Cyanosis Skin: No Rash or Ulcers, No Nodules or Sclerosis Neurological: Alert and Oriented x 3 Result Diagrams: 07/27/16 05:29 07/27/16 08:20 Additional Lab and Data: Lab Results 07/26/16 07/26/16 07/26/16 Range/Units 16:19 16:19 16:19 WBC 13.0 H (3.5-10.8) 10^3/ul RBC 3.76 L (4.0-5.4) 10^6/ul Hgb 12.2 L (14.0-18.0) g/dl Hct 38 L (42-52) % MCV 101 H (80-94) fL MCH 33 H (27-31) pg MCHC 32 (31-36) g/dl RDW 17 H (10.5-15) % Plt Count 245 (150-450) 10^3/ul MPV 10 (7.4-10.4) um3 Neut % (Auto) 82.0 (38-83) % Lymph % (Auto) 10.8 L (25-47) % [place] % (Auto) 6.6 (1-9) % Eos % (Auto) 0.1 (0-6) % Baso % (Auto) 0.5 (0-2) % Absolute Neuts (auto) 10.7 H (1.5-7.7) 10^3/ul Absolute Lymphs (auto) 1.4 (1.0-4.8) 10^3/ul Absolute Monos (auto) 0.9 H (0-0.8) 10^3/ul Absolute Eos (auto) 0 (0-0.6) 10^3/ul Absolute Basos (auto) 0.1 (0-0.2) 10^3/ul Absolute Nucleated RBC 0 10^3/ul Nucleated RBC % 0 INR (Anticoag Therapy) 0.81 L (0.89-1.11) APTT 27.2 (26.0-36.3) seconds D-Dimer, Quantitative < 200 (Less Than 230) ng/mL Sodium (133-145) mmol/L Potassium (3.5-5.0) mmol/L Chloride (101-111) mmol/L Carbon Dioxide (22-32) mmol/L Anion Gap (2-11) mmol/L BUN (6-24) mg/dL Creatinine (0.67-1.17) mg/dL Est GFR ( Amer) (>60) Est GFR (Non-Af Amer) (>60) BUN/Creatinine Ratio (8-20) Glucose (70-100) mg/dL Lactic Acid (0.5-2.0) mmol/L Calcium (8.6-10.3) mg/dL Magnesium (1.9-2.7) mg/dL Total Bilirubin (0.2-1.0) mg/dL AST (13-39) U/L ALT (7-52) U/L Alkaline Phosphatase (34-104) U/L Total Creatine Kinase (10-223) U/L CK-MB (CK-2) (0.6-6.3) ng/mL Troponin I (<0.04) ng/mL C-Reactive Protein (< 5.00) mg/L B-Natriuretic Peptide ( - 100) pg/mL Total Protein (6.4-8.9) g/dL Albumin (3.2-5.2) g/dL Globulin (2-4) g/dL Albumin/Globulin Ratio (1-3) Lipase (11.0-82.0) U/L TSH (0.34-5.60) mcIU/mL Urine Color Yellow Urine Appearance Clear Urine pH 8.0 (5-9) Ur Specific [place] 1.011 (1.010-1.030) Urine Protein 2+(100 mg/dl) H (Negative) Urine Ketones Negative (Negative) Urine Blood Negative (Negative) Urine Nitrate Negative (Negative) Urine Bilirubin Negative (Negative) Urine Urobilinogen Negative (Negative) Ur Leukocyte Esterase Negative (Negative) Urine WBC (Auto) Trace(0-5/hpf) (Absent) Urine RBC (Auto) Trace(0-2/hpf) (Absent) Urine Bacteria 1+ H (Absent) Urine Glucose 2+(150 mg/dl) H (Negative) 07/26/16 07/26/16 07/26/16 Range/Units 16:19 16:19 16:19 WBC (3.5-10.8) 10^3/ul RBC (4.0-5.4) 10^6/ul Hgb (14.0-18.0) g/dl Hct (42-52) % MCV (80-94) fL MCH (27-31) pg MCHC (31-36) g/dl RDW (10.5-15) % Plt Count (150-450) 10^3/ul MPV (7.4-10.4) um3 Neut % (Auto) (38-83) % Lymph % (Auto) (25-47) % [place] % (Auto) (1-9) % Eos % (Auto) (0-6) % Baso % (Auto) (0-2) % Absolute Neuts (auto) (1.5-7.7) 10^3/ul Absolute Lymphs (auto) (1.0-4.8) 10^3/ul Absolute Monos (auto) (0-0.8) 10^3/ul Absolute Eos (auto) (0-0.6) 10^3/ul Absolute Basos (auto) (0-0.2) 10^3/ul Absolute Nucleated RBC 10^3/ul Nucleated RBC % INR (Anticoag Therapy) (0.89-1.11) APTT (26.0-36.3) seconds D-Dimer, Quantitative (Less Than 230) ng/mL Sodium 132 L (133-145) mmol/L Potassium 5.1 H (3.5-5.0) mmol/L Chloride 91 L (101-111) mmol/L Carbon Dioxide 26 (22-32) mmol/L Anion Gap 15 H (2-11) mmol/L BUN 65 H (6-24) mg/dL Creatinine 12.67 H (0.67-1.17) mg/dL Est GFR ( Amer) 5.9 (>60) Est GFR (Non-Af Amer) 4.6 (>60) BUN/Creatinine Ratio 5.1 L (8-20) Glucose 95 (70-100) mg/dL Lactic Acid 0.7 (0.5-2.0) mmol/L Calcium 9.7 (8.6-10.3) mg/dL Magnesium 2.8 H (1.9-2.7) mg/dL Total Bilirubin 0.30 (0.2-1.0) mg/dL AST 6 L (13-39) U/L ALT 11 (7-52) U/L Alkaline Phosphatase 46 (34-104) U/L Total Creatine Kinase 62 (10-223) U/L CK-MB (CK-2) 1.3 (0.6-6.3) ng/mL Troponin I 0.01 (<0.04) ng/mL C-Reactive Protein 38.09 H (< 5.00) mg/L B-Natriuretic Peptide 56 ( - 100) pg/mL Total Protein 7.3 (6.4-8.9) g/dL Albumin 4.5 (3.2-5.2) g/dL Globulin 2.8 (2-4) g/dL Albumin/Globulin Ratio 1.6 (1-3) Lipase 424 H (11.0-82.0) U/L TSH 1.00 (0.34-5.60) mcIU/mL Urine Color Urine Appearance Urine pH (5-9) Ur Specific [place] (1.010-1.030) Urine Protein (Negative) Urine Ketones (Negative) Urine Blood (Negative) Urine Nitrate (Negative) Urine Bilirubin (Negative) Urine Urobilinogen (Negative) Ur Leukocyte Esterase (Negative) Urine WBC (Auto) (Absent) Urine RBC (Auto) (Absent) Urine Bacteria (Absent) Urine Glucose (Negative) Assess/Plan/Problems-Billing Mr Puri is a 31 yo M with a h/o lupus, ESRD, HTN and h/o 3rd degree heart block earlier this year secondary to medications who presented to the ER with c/ o neck pain and was admitted for possible pericarditis. - Patient Problems (1) Neck pain Current Visit: Yes Status: Acute Code(s): M54.2 - CERVICALGIA SNOMED Code( s): 03277514 Comment: Unclear etiology. I do not think this is secondary to pericarditis. He will remain on ASA and colchicine for his past h/o pericarditis. I do not hear a rub on exam. His CRP is elevated but ? if this could be secondary to his underlying lupus. Will try lyrica 25mg daily to see if it helps his pain. He has been weight lifting recently so I am suspicious his pain may be related to that. Will recheck CRP tomorrow. (2) Hyperkalemia Current Visit: Yes Status: Acute Code(s): E87.5 - HYPERKALEMIA SNOMED Code (s): 86137070 Comment: S/P dialysis today. Recheck tomorrow. (3) HTN (hypertension) Current Visit: Yes Status: Acute Code(s): I10 - ESSENTIAL (PRIMARY) HYPERTENSION SNOMED Code(s): 26616097 Comment: BP is under good control. Continue amlodipine. (4) SLE (systemic lupus erythematosus) Current Visit: Yes Status: Acute Code(s): M32.9 - SYSTEMIC LUPUS ERYTHEMATOSUS, UNSPECIFIED SNOMED Code(s): 81155926 Comment: Continue plaquenil and methylprednisolone 16mg daily. Dr. Baugh saw the patient tonight. Will continue to follow pt. (5) ESRD (end stage renal disease) on dialysis Current Visit: Yes Status: Acute Code(s): N18.6 - END STAGE RENAL DISEASE; Z99.2 - DEPENDENCE ON RENAL DIALYSIS SNOMED Code(s): 599615446 Comment: Pt received dialysis today. Repeat BMP tomorrow. (6) DVT prophylaxis Current Visit: Yes Status: Acute Code(s): SIN8955 - SNOMED Code(s): 184584836 Comment: ambulation (7) Full code status Current Visit: Yes Status: Acute Code(s): Z78.9 - OTHER SPECIFIED HEALTH STATUS SNOMED Code(s): 907084324
[2016-07-27] MEDS ORDERED: Nicotine GUM* 2 MG PO PRN (21:40)
--- NOTE | 2016-07-27 22:05 | CONS ---
CONSULTATION REPORT: DATE OF CONSULT: 07/27/16 CONSULTING PHYSICIAN: Dr. Maguire. CHIEF COMPLAINT: Lupus flare. REASON FOR CONSULT: Evaluate for lupus flare. HISTORY OF PRESENT ILLNESS: Mr. Puri is a 31-year-old male well known to me who has a long-standing history of lupus with complications of end-stage renal disease. He has had repeated episodes of pericarditis which at times is manifested as upper back and neck pain. He has had increased pain recently which has worsened after his dialysis in terms of pain in his upper neck and back region. As an outpatient, he had seen his primary care doctor and a chest x-ray was done which I was informed showed cardiomegaly, but no effusion. He was placed on tramadol for pain which initially helped, but no longer helps. He was also placed on colchicine on Tuesday prior to admission at 0.6 mg daily, to help the symptoms of pericarditis, which he had been on as an inpatient on during one of his prior admissions. Despite this therapy, including Plaquenil 400 mg daily, he continued to have symptoms and the pain was quite severe in the upper neck and back region, so that he came to the hospital and was admitted for possible recurrent pericarditis. As noted, he was also hospitalized in June for viral gastroenteritis and he was also discharged in May for pericarditis secondary to lupus and again on 22 of May where he was admitted with third-degree heart block. Initially, it was felt to be possibly in part related to his lupus flare but also Plaquenil, but he subsequently after that admission was admitted to another hospital and Plaquenil was restarted. He was noticing some symptomatic benefit and preferred to stay with Plaquenil and there was no recurrence of third-degree heart block. He presented with complaints of the right side of his neck worse with deep inspiration. He denied any prior injury to the neck, but it was worse with dialysis. He denied any acute shortness of breath or chest wall pain, but it was worse with lying down and he felt better when he was up and active. He has been on methylprednisolone with doses varying between 3 and 4 tablets daily. Recently, we had tried to decrease it to 3 a day, but his symptoms worsened. He continues to have the neck pain, but it is much better today after resting. In the emergency room, he was found to have a mild leukocytosis with anemia with some evidence and sequelae of his chronic renal disease. His creatinine was elevated consistent with his end-stage renal disease with a CRP elevated at 38.09, which has increased compared to his prior admission. Chest x-ray showed cardiomegaly with some worsening features of cardiomegaly. Symptoms were worse in the morning, but are improved now. He was given IV Solu- Medrol and he is back on his baseline dose of Medrol 4 tabs daily. PAST MEDICAL HISTORY: Includes: 1. Lupus with lupus nephritis and end-stage renal disease, on hemodialysis. 2. History of lupus pericarditis. 3. History of renal disease. 4. History of hypertension. 5. History of splenectomy. 6. History of third-degree heart block. 7. History of renal malignancy. MEDICATIONS: As an outpatient included: 1. Methylprednisolone 16 mg daily. 2. Tramadol 50 mg daily. 3. Albuterol nebulizer inhaler as needed. 4. Cholecalciferol 2000 units daily. 5. Colchicine 0.6 mg daily, which was increased during his admission to [facility] 6. Cyanocobalamin 500 mcg daily. 7. Fluticasone. 8. Plaquenil 200 mg b.i.d. 9. Sertraline 50 mg daily. 10. Sevelamer 800 mg daily with meals. 11. Amlodipine 10 mg daily. 12. Trazodone. ALLERGIES: Include HYDRALAZINE and PREDNISONE. PREDNISONE caused suicidal ideation, so it is not a classic allergy. FAMILY HISTORY: Notable for his mother and father still alive with diabetes. His father has dementia. He has a supportive sister who I spoke with yesterday. One of his grandmothers has lupus, but he is not sure which side of the family. SOCIAL HISTORY: No reports of alcohol. He lives with his sister. He was a smoker in the past and he has been able to cut down. REVIEW OF SYSTEMS: General: Mild fatigue. HEENT: Mildly dry eyes and dry mouth, but this has improved. Cardiac: Denies chest wall pain. Pulmonary: Denies acute shortness of breath. Musculoskeletal: Complains of significant shoulder and upper neck pain which is now improved. Skin: No new rash. : No blood in the urine or stool. GI: Denies abdominal pain, nausea, or vomiting. Endocrine: No glandular swelling. Hematologic: No bruising or bleeding. Other 14-point review of systems were reviewed and was otherwise negative. His last outpatient visit with me was on 25 of June. At that time, he had serologies and his white count was done with Dr. Aranda and was found to be 13.0 and this was on the of this month. He has had a low complement, but his last CRP was 3.95 on the 03 of July, so it has definitely increased since then. PHYSICAL EXAM: He is pleasant, but appeared somewhat fatigued. Calm and cooperative during exam. Temperature 98.4, heart rate 84, respiratory rate 18, O2 sats 98% on room air, blood pressure 154/84. HEENT: He is normocephalic, atraumatic. Pupils are equal, round, reactive to light and accommodate. Heart revealed a regular rate and rhythm. Normal S1 and S2. Cardiovascular exam revealed no murmurs, rubs, or gallops. Lungs were clear to auscultation bilaterally with no accessory muscle use and good aeration. Abdomen: Soft, nontender, nondistended. Positive bowel sounds x4. Extremities: No cyanosis or edema. Skin was intact. Musculoskeletal: He had mild restriction of the cervical spine with no paraspinal tenderness. Neurologic: He is alert and oriented x3. He moved all extremities. He had good range of motion of the neck and spine. Motor strength was 5/5 in the upper and lower extremities. Extraocular movements and cranial nerves II through XII were intact. Hematologic: No bruising or bleeding. Endocrine: No glandular swelling. Lymph : No adenopathy. : No CVA tenderness. Psychiatric: Appeared to be slightly fatigued. DIAGNOSTIC STUDIES/LAB DATA: He had a white count of 13.0. Creatinine of 12.67 , glucose of 95, lactic acid 0.7. CRP of 38.09. Chest x-ray showed progression of cardiomegaly. EKG showed sinus rhythm with heart rate in the 90s with no evidence of ischemia. ASSESSMENT AND PLAN: 1. Mr. Puri is a 31-year-old male with a long-standing history of lupus, now with recurrent symptoms of atypical pericarditis. He received Solu-Medrol yesterday and he is feeling somewhat better back on his baseline dose of Medrol. In terms of further management, I think it may be worth adding back CellCept to his Plaquenil, but we can wait until his acute symptoms resolve to do this, but the combination of Plaquenil and CellCept has not been tested. So , this may be an option in terms of reducing his symptoms of recurrent pericarditis as he continues to have activity of this condition. We will need to continue to try to find an effective steroid- sparing agent and another option might be azathioprine, which can be given as a renal dose in the setting of dialysis, but CellCept might be a better option just because he has tolerated this well in the past. In terms of his chronic corticosteroids, he is on vitamin D supplementation. He has stopped smoking which I congratulated him on. 2. History of end-stage renal disease, on hemodialysis. 3. Symptoms of serositis with pericarditis. He is on colchicine and I agree with a gradual taper over time. TIME SPENT: Time spent with the patient was greater than 55 minutes, with greater than 50% of the time spent counseling the patient. [id number]/CPS #: [id number] DARRELL
[2016-07-28] MEDS: oxyCODONE/Acetamin 5/325 MG* TAB PO PRN ×2 (01:30→06:01)
[2016-07-28] MEDS: Morphine INJ* 4 MG/ML 1 ML SYRINGE IV PRN (03:47)
[2016-07-28 05:34] LABS: Hematocrit 38 % (42-52); Hemoglobin 12.2 g/dl (14.0-18.0); Mean Corpuscular HGB Conc 32 g/dl (31-36); Mean Corpuscular Hemoglobin 33 pg (27-31); Mean Corpuscular Volume 102 fL (80-94); Mean Platelet Volume 10 um3 (7.4-10.4); Red Blood Count 3.75 10^6/ul (4.0-5.4); Red Cell Distribution Width 17 % (10.5-15); White Blood Count 13.5 10^3/ul (3.5-10.8)
[2016-07-28] MEDS: Omeprazole CAP* 20 MG PO SCH (06:01)
[2016-07-28 06:04] LABS: BUN/Creatinine Ratio 5.7 (8-20); C Reactive Protein 22.18 mg/L (< 5.00); Calcium 9.2 mg/dL (8.6-10.3); EGFR African American 6.9 (>60); EGFR Non-African American 5.4 (>60)
[2016-07-28 06:13] LABS: Potassium 6.1 mmol/L (3.5-5.0)
[2016-07-28 07:28] VITALS: BP 149/88
[2016-07-28] MEDS: Colchicine* 0.6 MG TAB PO SCH (07:51)
[2016-07-28] MEDS: Cholecalciferol TAB* 1000 UNITS PO SCH (07:51)
[2016-07-28] MEDS: Sevelamer TAB* 800 MG PO SCH (07:51)
[2016-07-28] MEDS: amLODIPine TAB* 5 MG PO SCH (07:51)
[2016-07-28] MEDS: Hydroxychloroquine TAB* 200 MG PO SCH (07:51)
[2016-07-28] MEDS: methylPREDNISolone TAB* 4 MG PO SCH (07:52)
[2016-07-28] MEDS: Cyanocobalamin TAB* 500 MCG PO SCH (07:52)
[2016-07-28] MEDS: Sertraline* 50 MG TAB PO SCH (07:52)
[2016-07-28] MEDS: Fluticasone NASAL SPRAY 50MCG* 16 gm SPRAY BTL BOTH NARES SCH (07:53)
[2016-07-28] MEDS ORDERED: Pregabalin CAP(*) 25 MG PO SCH (09:00)
--- NOTE | 2016-07-28 10:03 | PN ---
Subjective Date of Service: 07/28/16 Interval History: Pt is feeling better. He states the pain is less. He is anxious to go home. He is informed his K is elevated today and he refuses kayexlate when I offer it to him. He declined having dialysis here and states he will get his full treatment this afternoon. Objective Active Medications: Albuterol (Ventolin 2.5 Mg/3 Ml Neb.Eva*) 2.5 mg INH Q6H PRN PRN Reason: SOB/WHEEZING Amlodipine Besylate (Norvasc Tab*) 10 mg PO DAILY [facility] Last Admin: 07/28/16 07:51 Dose: 10 mg Calcium Carbonate (Tums*) 500 mg PO Q4H PRN PRN Reason: INDIGESTION Last Admin: 07/27/16 21:33 Dose: 500 mg Cholecalciferol (Vitamin D Tab*) 2,000 units PO DAILY [facility] Last Admin: 07/28/16 07:51 Dose: 2,000 units Colchicine (Colcrys*) 0.6 mg PO BID [facility] Last Admin: 07/28/16 07:51 Dose: 0.6 mg Cyanocobalamin (Vitamin B12 Tab*) 500 mcg PO DAILY [facility] Last Admin: 07/28/16 07:52 Dose: 500 mcg Fluticasone Propionate (Flonase Nasal [place] 50mcg*) 1 spray BOTH NARES DAILY [facility] Last Admin: 07/28/16 07:53 Dose: Not Given Hydroxychloroquine Sulfate (Plaquenil Tab*) 200 mg PO BID [facility] Last Admin: 07/28/16 07:51 Dose: 200 mg Methylprednisolone (Medrol Tab*) 16 mg PO DAILY [facility] Last Admin: 07/28/16 07:52 Dose: 16 mg Morphine Sulfate (Morphine Inj (Syringe)*) 4 mg IV Q4H PRN PRN Reason: PAIN Last Admin: 07/28/16 03:47 Dose: 4 mg Nicotine Polacrilex (Nicotine Gum*) 2 mg PO Q2H PRN PRN Reason: CRAVING Last Admin: 07/28/16 08:51 Dose: 2 mg Omeprazole (Prilosec Cap*) 20 mg PO 0600 [facility] Last Admin: 07/28/16 06:01 Dose: 20 mg Oxycodone/Acetaminophen (Percocet 5/325 Tab*) 2 tab PO Q4H PRN PRN Reason: PAIN Last Admin: 07/28/16 06:01 Dose: 2 tab Pregabalin (Lyrica Cap(*)) 25 mg PO DAILY [facility] Last Admin: 07/28/16 07:52 Dose: 25 mg Sertraline HCl (Zoloft*) 50 mg PO DAILY [facility] Last Admin: 07/28/16 07:52 Dose: 50 mg Sevelamer Carbonate (Renvela Tab*) 800 mg PO AC [facility] Last Admin: 07/28/16 07:51 Dose: 800 mg Trazodone HCl (Desyrel Tab*) 50 mg PO BEDTIME PRN PRN Reason: INSOMNIA Vital Signs 07/27/16 07/27/16 07/27/16 10:44 11:05 11:48 Temperature 97.9 F Pulse Rate 82 Respiratory 20 20 16 Rate Blood Pressure 143/82 (mmHg) O2 Sat by Pulse 97 Oximetry 07/27/16 07/27/16 07/27/16 15:34 16:57 18:02 Temperature Pulse Rate Respiratory 16 20 16 Rate Blood Pressure (mmHg) O2 Sat by Pulse Oximetry 07/27/16 07/27/16 07/27/16 19:43 20:02 20:33 Temperature 98.2 F Pulse Rate 86 Respiratory 18 16 16 Rate Blood Pressure 147/90 (mmHg) O2 Sat by Pulse 98 Oximetry 07/27/16 07/27/16 07/27/16 22:26 22:33 23:26 Temperature Pulse Rate Respiratory 16 18 18 Rate Blood Pressure (mmHg) O2 Sat by Pulse Oximetry 07/27/16 07/28/16 07/28/16 23:51 01:30 03:30 Temperature 98.0 F Pulse Rate 73 Respiratory 16 18 18 Rate Blood Pressure 124/62 (mmHg) O2 Sat by Pulse 94 Oximetry 07/28/16 07/28/16 07/28/16 03:38 03:47 04:47 Temperature 98.0 F Pulse Rate 73 Respiratory 20 18 16 Rate Blood Pressure 136/80 (mmHg) O2 Sat by Pulse 95 Oximetry 07/28/16 07/28/16 07/28/16 06:01 07:24 07:52 Temperature 97.9 F Pulse Rate 73 Respiratory 16 12 16 Rate Blood Pressure 149/88 (mmHg) O2 Sat by Pulse 98 Oximetry 07/28/16 08:01 Temperature Pulse Rate Respiratory 16 Rate Blood Pressure (mmHg) O2 Sat by Pulse Oximetry Oxygen Devices in Use Now: None Appearance: Young male walking around the room, NAD Eyes: No Scleral Icterus Ears/Nose/Mouth/Throat: Mucous Membranes Moist Respiratory: Symmetrical Chest Expansion and Respiratory Effort, Clear to Auscultation Cardiovascular: NL Sounds; No Murmurs; No JVD, RRR, No Edema Abdominal: NL Sounds; No Tenderness; No Distention Extremities: No Clubbing, Cyanosis Skin: No Rash or Ulcers, No Nodules or Sclerosis Neurological: Alert and Oriented x 3 Result Diagrams: 07/28/16 04:39 07/28/16 04:40 Additional Lab and Data: Lab Results 07/26/16 07/26/16 07/26/16 Range/Units 16:19 16:19 16:19 WBC 13.0 H (3.5-10.8) 10^3/ul RBC 3.76 L (4.0-5.4) 10^6/ul Hgb 12.2 L (14.0-18.0) g/dl Hct 38 L (42-52) % MCV 101 H (80-94) fL MCH 33 H (27-31) pg MCHC 32 (31-36) g/dl RDW 17 H (10.5-15) % Plt Count 245 (150-450) 10^3/ul MPV 10 (7.4-10.4) um3 Neut % (Auto) 82.0 (38-83) % Lymph % (Auto) 10.8 L (25-47) % Wallace % (Auto) 6.6 (1-9) % Eos % (Auto) 0.1 (0-6) % Baso % (Auto) 0.5 (0-2) % Absolute Neuts (auto) 10.7 H (1.5-7.7) 10^3/ul Absolute Lymphs (auto) 1.4 (1.0-4.8) 10^3/ul Absolute Monos (auto) 0.9 H (0-0.8) 10^3/ul Absolute Eos (auto) 0 (0-0.6) 10^3/ul Absolute Basos (auto) 0.1 (0-0.2) 10^3/ul Absolute Nucleated RBC 0 10^3/ul Nucleated RBC % 0 INR (Anticoag Therapy) 0.81 L (0.89-1.11) APTT 27.2 (26.0-36.3) seconds D-Dimer, Quantitative < 200 (Less Than 230) ng/mL Sodium (133-145) mmol/L Potassium (3.5-5.0) mmol/L Chloride (101-111) mmol/L Carbon Dioxide (22-32) mmol/L Anion Gap (2-11) mmol/L BUN (6-24) mg/dL Creatinine (0.67-1.17) mg/dL Est GFR ( Amer) (>60) Est GFR (Non-Af Amer) (>60) BUN/Creatinine Ratio (8-20) Glucose (70-100) mg/dL Lactic Acid (0.5-2.0) mmol/L Calcium (8.6-10.3) mg/dL Magnesium (1.9-2.7) mg/dL Total Bilirubin (0.2-1.0) mg/dL AST (13-39) U/L ALT (7-52) U/L Alkaline Phosphatase (34-104) U/L Total Creatine Kinase (10-223) U/L CK-MB (CK-2) (0.6-6.3) ng/mL Troponin I (<0.04) ng/mL C-Reactive Protein (< 5.00) mg/L B-Natriuretic Peptide ( - 100) pg/mL Total Protein (6.4-8.9) g/dL Albumin (3.2-5.2) g/dL Globulin (2-4) g/dL Albumin/Globulin Ratio (1-3) Lipase (11.0-82.0) U/L TSH (0.34-5.60) mcIU/mL Urine Color Yellow Urine Appearance Clear Urine pH 8.0 (5-9) Ur Specific [place] 1.011 (1.010-1.030) Urine Protein 2+(100 mg/dl) H (Negative) Urine Ketones Negative (Negative) Urine Blood Negative (Negative) Urine Nitrate Negative (Negative) Urine Bilirubin Negative (Negative) Urine Urobilinogen Negative (Negative) Ur Leukocyte Esterase Negative (Negative) Urine WBC (Auto) Trace(0-5/hpf) (Absent) Urine RBC (Auto) Trace(0-2/hpf) (Absent) Urine Bacteria 1+ H (Absent) Urine Glucose 2+(150 mg/dl) H (Negative) 07/26/16 07/26/16 07/26/16 Range/Units 16:19 16:19 16:19 WBC (3.5-10.8) 10^3/ul RBC (4.0-5.4) 10^6/ul Hgb (14.0-18.0) g/dl Hct (42-52) % MCV (80-94) fL MCH (27-31) pg MCHC (31-36) g/dl RDW (10.5-15) % Plt Count (150-450) 10^3/ul MPV (7.4-10.4) um3 Neut % (Auto) (38-83) % Lymph % (Auto) (25-47) % Wallace % (Auto) (1-9) % Eos % (Auto) (0-6) % Baso % (Auto) (0-2) % Absolute Neuts (auto) (1.5-7.7) 10^3/ul Absolute Lymphs (auto) (1.0-4.8) 10^3/ul Absolute Monos (auto) (0-0.8) 10^3/ul Absolute Eos (auto) (0-0.6) 10^3/ul Absolute Basos (auto) (0-0.2) 10^3/ul Absolute Nucleated RBC 10^3/ul Nucleated RBC % INR (Anticoag Therapy) (0.89-1.11) APTT (26.0-36.3) seconds D-Dimer, Quantitative (Less Than 230) ng/mL Sodium 132 L (133-145) mmol/L Potassium 5.1 H (3.5-5.0) mmol/L Chloride 91 L (101-111) mmol/L Carbon Dioxide 26 (22-32) mmol/L Anion Gap 15 H (2-11) mmol/L BUN 65 H (6-24) mg/dL Creatinine 12.67 H (0.67-1.17) mg/dL Est GFR ( Amer) 5.9 (>60) Est GFR (Non-Af Amer) 4.6 (>60) BUN/Creatinine Ratio 5.1 L (8-20) Glucose 95 (70-100) mg/dL Lactic Acid 0.7 (0.5-2.0) mmol/L Calcium 9.7 (8.6-10.3) mg/dL Magnesium 2.8 H (1.9-2.7) mg/dL Total Bilirubin 0.30 (0.2-1.0) mg/dL AST 6 L (13-39) U/L ALT 11 (7-52) U/L Alkaline Phosphatase 46 (34-104) U/L Total Creatine Kinase 62 (10-223) U/L CK-MB (CK-2) 1.3 (0.6-6.3) ng/mL Troponin I 0.01 (<0.04) ng/mL C-Reactive Protein 38.09 H (< 5.00) mg/L B-Natriuretic Peptide 56 ( - 100) pg/mL Total Protein 7.3 (6.4-8.9) g/dL Albumin 4.5 (3.2-5.2) g/dL Globulin 2.8 (2-4) g/dL Albumin/Globulin Ratio 1.6 (1-3) Lipase 424 H (11.0-82.0) U/L TSH 1.00 (0.34-5.60) mcIU/mL Urine Color Urine Appearance Urine pH (5-9) Ur Specific [place] (1.010-1.030) Urine Protein (Negative) Urine Ketones (Negative) Urine Blood (Negative) Urine Nitrate (Negative) Urine Bilirubin (Negative) Urine Urobilinogen (Negative) Ur Leukocyte Esterase (Negative) Urine WBC (Auto) (Absent) Urine RBC (Auto) (Absent) Urine Bacteria (Absent) Urine Glucose (Negative) Assess/Plan/Problems-Billing Mr Puri is a 31 yo M with a h/o lupus, ESRD, HTN and h/o 3rd degree heart block earlier this year secondary to medications who presented to the ER with c/ o neck pain and was admitted for possible pericarditis. - Patient Problems (1) Neck pain Current Visit: Yes Status: Acute Code(s): M54.2 - CERVICALGIA SNOMED Code( s): 88779477 Comment: I suspect his neck pain is musculoskeletal in nature. Continue lyrica which may have helped some. CRP down some today. Follow up with Dr. Baugh. (2) Hyperkalemia Current Visit: Yes Status: Acute Code(s): E87.5 - HYPERKALEMIA SNOMED Code (s): 04809696 Comment: K is up again today. He refuses dialysis here today and refuses kayexalate. He will be getting his usual dialysis treatment this afternoon. He will leave AMA today given his refusal to treat his K prior to d/c. (3) HTN (hypertension) Current Visit: Yes Status: Acute Code(s): I10 - ESSENTIAL (PRIMARY) HYPERTENSION SNOMED Code(s): 62285098 Comment: BP is under good control. Continue amlodipine. (4) SLE (systemic lupus erythematosus) Current Visit: Yes Status: Acute Code(s): M32.9 - SYSTEMIC LUPUS ERYTHEMATOSUS, UNSPECIFIED SNOMED Code(s): 51091945 Comment: Continue plaquenil and methylprednisolone 16mg daily. Follow up with Dr. Baugh as an outpatient. (5) ESRD (end stage renal disease) on dialysis Current Visit: Yes Status: Acute Code(s): N18.6 - END STAGE RENAL DISEASE; Z99.2 - DEPENDENCE ON RENAL DIALYSIS SNOMED Code(s): 660048516 Comment: Outpatient dialysis today. (6) DVT prophylaxis Current Visit: Yes Status: Acute Code(s): YQR2258 - SNOMED Code(s): 980741869 Comment: ambulation (7) Full code status Current Visit: Yes Status: Acute Code(s): Z78.9 - OTHER SPECIFIED HEALTH STATUS SNOMED Code(s): 645631881
--- NOTE | 2016-07-29 04:57 | DS ---
DISCHARGE SUMMARY: DATE OF ADMISSION: 07/26/16 DATE OF DISCHARGE: 07/28/16 PRIMARY CARE PROVIDER: Dr. Valentine. PRINCIPAL DIAGNOSES: 1. Hyperkalemia. 2. Neck pain of unclear etiology, though likely musculoskeletal. SECONDARY DIAGNOSES: 1. Lupus. 2. End-stage renal disease. 3. History of third degree heart block. DISCHARGE MEDICATIONS: 1. Colchicine 0.6 mg p.o. b.i.d. 2. Albuterol 1 neb inhaled q.6 hours p.r.n. shortness of breath. 3. Renvela 800 mg p.o. q.a.c. 4. Plaquenil 200 mg p.o. b.i.d. 5. Methylprednisolone 16 mg p.o. daily. 6. Amlodipine 10 mg p.o. daily. 7. Tramadol 50 mg p.o. daily p.r.n. pain. 8. Sertraline 50 mg p.o. daily. 9. Trazodone 50 mg p.o. q.h.s. p.r.n. insomnia. 10. Lyrica 25 mg p.o. q.h.s. HOSPITAL COURSE: Mr. Puri is a 31-year-old male who has a complicated medical history including lupus, end-stage renal disease, history of third degree block earlier this year, who presented to the emergency room with complaints of neck pain. The patient was admitted for concerns of possible pericarditis. Ultimately, I did not feel that this is likely the case. 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 The patient described sharp shooting pain when taking a breath. We decided to try low- dose Lyrica. He does believe that this has helped some. At this point, he feels that he is stable for discharge home and will follow up with Dr. Baugh as an outpatient for his rheumatologic conditions. The day after admission, the patient was found to have significant hyperkalemia with potassium of 6.4. This was rechecked and still elevated at 6.2. The patient did undergo dialysis on the afternoon of 07/27/16. On 07/28/16, the potassium was rechecked and still elevated at 6.1. It is unclear as to why his potassium is still elevated despite having dialysis yesterday. I offered the patient a dose of Kayexalate prior to discharge, however, he refused stating that it works very sporadically and he does not want to be on an inconvenient location when he needs to go to the bathroom. The patient refused also to have dialysis on the day of discharge. The patient was asked to sign out against medical advice given his history of third heart block just earlier this year and his current hyperkalemia. The patient did agree to this. He will be going for his outpatient dialysis treatment later today. FOLLOWUP CONCERNS: The patient is being discharged home today, 07/28/16. ACTIVITY LEVEL: As tolerated. DIET: Low potassium. CONDITION ON DISCHARGE: Stable. FOLLOWUP: The patient is to follow up with Dr. Valentine in the next 4 to 7 days. TIME SPENT: 25 minutes was spent discharging this patient. CC: Dr. Valentine* [id number]/CPS #: [id number] MTDD
== END 2016-07-28 10:00 | disposition left against medical advice (07) | DRG 640 ==
LOC: ED 13:18 → MEDTELE 17:53 → OBSVTOIN 07-27 09:30
PROVIDERS: ADMIT Internal Medicine; ATTEND Hospitalist
PROC: 5A1D00Z (ICD-10-PCS; principal; 2016-07-27)
DX: E87.5 Hyperkalemia (principal); N18.6 End stage renal disease; I44.2 Atrioventricular block, complete; M32.9 Systemic lupus erythematosus, unspecified; I12.0 Hypertensive chronic kidney disease with stage 5 chronic kidney disease or end stage renal disease; M54.2 Cervicalgia; Z99.2 Dependence on renal dialysis; Z79.52 Long term (current) use of systemic steroids; Z79.899 Other long term (current) drug therapy; Z88.8 Allergy status to other drugs, medicaments and biological substances; Z83.3 Family history of diabetes mellitus; Z84.89 Family history of other specified conditions; Z87.891 Personal history of nicotine dependence
CPT/HCPCS: 36415; 71020; 80048; 80053; 81003; 81015; 82550; 82553; 83605; 83690; 83735; 83880; 84132; 84443; 84484; 85025; 85027; 85379; 85610; 85730; 86140; 86160; 86225; 87077; 87086; 87186; 93005; 93306; A9270-GY; G0378; J2270; J2405; J2930; J7509

== ENCOUNTER 2016-08-02 21:46 | Emergency (ER) | payer MEDICARE, MEDICAID ==
[2016-08-03] MEDS ORDERED: Acetaminophen TAB* 325 MG PO ONE (00:35)
[2016-08-03 01:49] LABS: Hematocrit 35 % (42-52); Hemoglobin 11.6 g/dl (14.0-18.0); Mean Corpuscular HGB Conc 33 g/dl (31-36); Mean Corpuscular Hemoglobin 33 pg (27-31); Mean Corpuscular Volume 100 fL (80-94); Mean Platelet Volume 10 um3 (7.4-10.4); Red Cell Distribution Width 17 % (10.5-15); White Blood Count 13.5 10^3/ul (3.5-10.8)
[2016-08-03 01:53] LABS: Add Diff/Slide Review? Slide Review Added; Comments Flag Yes
[2016-08-03 02:05] LABS: Albumin 3.9 g/dL (3.2-5.2); BUN/Creatinine Ratio 4.9 (8-20); C Reactive Protein 15.63 mg/L (< 5.00); Calcium 8.9 mg/dL (8.6-10.3); EGFR African American 12.6 (>60); EGFR Non-African American 9.8 (>60); Globulin 2.4 g/dL (2-4); Phosphorus 4.4 mg/dL (2.5-5.0); Potassium 4.8 mmol/L (3.5-5.0); Total Bilirubin 0.3 mg/dL (0.2-1.0); Total Protein 6.3 g/dL (6.4-8.9)
[2016-08-03 02:21] LABS: Mono Internal Control QC Line Present
[2016-08-03 02:22] LABS: Manual Entry Verification LOR0008
[2016-08-03] MEDS ORDERED: diPHENhydraMINE PO* 25 MG PO ONE (03:19)
[2016-08-03 03:49] VITALS: BP 143/88
== END 2016-08-03 03:48 | disposition home or self-care (01) ==
LOC: ED 21:46
DX: H57.10 Ocular pain, unspecified eye (principal); J32.9 Chronic sinusitis, unspecified
CPT/HCPCS: 36415; 80053; 83605; 84100; 85025; 86140; 86308; 87502; 99282; A9270-GY

== ENCOUNTER 2016-09-12 21:19 | Emergency (ER) | payer MEDICARE, MEDICAID ==
--- NOTE | 2016-09-12 22:34 | ED ---
Jasbir Ibrahim Billy, scribed for Lencho Hsu MD on 09/12/16 at 2222 . Upper Extremity Pain - HPI Summary HPI Summary: This patient is a 31 year-old male coming to [facility] with a complaint of persistent posterior left shoulder pain. He states that the pain has been intermittent for the last 6 months, worst in the last 4 hours. He has taken aspirin for pain and takes gabapentin as prescribed, but nothing improves the pain. History of pericarditis and lupus. - History of Current Complaint Chief Complaint: EDChestPainROMI Stated Complaint: LEFT SHOULDER PAIN/DX END STAGE RENAL FAILURE Time Seen by Provider: 09/12/16 22:09 Hx Obtained From: Patient Mechanism Of Injury: Unknown Onset/Duration: Worse Since - 4 hours ago Timing: Intermittent Severity Initially: Moderate Severity Currently: Moderate Pain Location: Shoulder Aggravating Factor(s): Nothing Alleviating Factor(s): Nothing Associated Signs & Symptoms: Positive: Negative - Allergies/Home Medications Allergies/Adverse Reactions: Allergies Allergy/AdvReac Type Severity Reaction Status Date / Time Hydralazine Allergy Shortness Verified 08/16/16 16:31 of Breath Prednisone AdvReac Hallucinati Verified 08/16/16 16:31 ons PMH/Surg Hx/FS Hx/Imm Hx Endocrine/Hematology History: Reports: Hx Systemic Lupus Erythematosus Denies: Hx Diabetes, Hx Thyroid Disease Cardiovascular History: Reports: Hx Hypertension Denies: Hx Peripheral Vascular Disease Comment Only: Other Cardiovascular Problems/Disorders - Hx LUPUS Respiratory History: Reports: Hx Asthma, Hx Seasonal Allergies, Other Respiratory Problems/Disorders - Hx pleurisy. History: Reports: Hx Dialysis - TTS, Other Problems/Disorders - Kidney cancer, unilateral nephrectomy Musculoskeletal History: Reports: Other Musculoskeletal History - Lupus: generlized pain Denies: Hx Arthritis, Hx Osteoporosis Sensory History: Reports: Hx Contacts or Glasses Denies: Hx Hearing Aid Opthamlomology History: Reports: Hx Contacts or Glasses Neurological History: Denies: Hx Seizures, Hx Transient Ischemic Attacks (TIA) Psychiatric History: Reports: Hx Anxiety - Cancer History Cancer Type, Location and Year: Kidney cancer, September 2014 in [place]. Hx Chemotherapy: Yes - For lupus. - Surgical History Surgery Procedure, Year, and Place: Nephrectomy, splenectomy, Inguinal hernia repaired, multiple fistula placements. Hx Anesthesia Reactions: No Infectious Disease History: No Infectious Disease History: Reports: Hx of Known/Suspected MRSA Denies: Traveled Outside the [place] in Last 30 Days - Family History Known Family History: Positive: Hypertension, Diabetes - Social History Alcohol Use: None Hx Substance Use: No Substance Use Type: Reports: None Hx Tobacco Use: Yes Smoking Status (MU): Former Smoker Type: Cigarettes Amount Used/How Often: 5-10 cigs per day for 15 years until quit Length of Time of Smoking/Using Tobacco: 15 years Have You Smoked in the Last Year: Yes Review of Systems Negative: Fever Musculoskeletal: Other - left shoulder pain All Other Systems Reviewed And Are Negative: Yes Physical Exam Triage Information Reviewed: Yes Vital Signs On Initial Exam: Initial Vitals Temp Pulse Resp BP Pulse Ox 98.6 F 100 20 152/86 100 09/12/16 21:22 09/12/16 21:22 09/12/16 21:22 09/12/16 21:22 09/12/16 21:22 Vital Signs Reviewed: Yes Appearance: Positive: Well-Appearing, No Pain Distress Skin: Positive: Warm Head/Face: Positive: Normal Head/Face Inspection Eyes: Positive: ZACHARY ENT: Positive: Hearing grossly normal Respiratory/Lung Sounds: Positive: Breath Sounds Present Musculoskeletal: Positive: Other - lt shoulder no deformity, from with mild pain Neurological: Positive: Alert, Oriented to Person Place, Time, NV Bundle Intact Distally - Agustin Coma Scale Coma Scale Total: 15 Diagnostics - Vital Signs Vital Signs Temp Pulse Resp BP Pulse Ox 09/12/16 21:50 98 F 88 18 154/94 98 09/12/16 21:22 98.6 F 100 20 152/86 100 - Laboratory Lab Statement: Any lab studies that have been ordered have been reviewed, and results considered in the medical decision making process. - Radiology Shoulder XR Xray Interpretation: No Acute Changes Radiology Interpretation Completed By: ED Physician Course/Dx - Diagnoses Provider Diagnoses: Shoulder pain Discharge - Discharge Plan Condition: Stable Disposition: HOME Patient Education Materials: Shoulder Pain (ED) Referrals: Mirza Valentine DO [Primary Care Provider] - The documentation as recorded by the Jasbir mcmillan Billy accurately reflects the service I personally performed and the decisions made by me, Lencho Hsu MD.
--- NOTE | 2016-09-12 22:45 | RAD ---
INDICATION: Left shoulder pain. TECHNIQUE: 4 views of the left shoulder were obtained. FINDINGS: The bones are in normal alignment. No fracture is seen. Joint spaces appear maintained. IMPRESSION: NEGATIVE EXAM.
[2016-09-12 22:54] VITALS: BP 145/95
== END 2016-09-12 23:05 | disposition home or self-care (01) ==
LOC: ED 21:19
DX: M25.512 Pain in left shoulder (principal)
CPT/HCPCS: 93005; 99282

== ENCOUNTER 2017-04-17 11:42 | Emergency (ER) | payer MEDICARE, MEDICAID ==
[2017-04-17] MEDS ORDERED: Ondansetron INJ* 2 MG/ML VIAL IV ONE ×2 (14:22→17:14)
[2017-04-17 14:27] LABS: Hematocrit 34 % (42-52); Hemoglobin 11.3 g/dl (14.0-18.0); Mean Corpuscular HGB Conc 34 g/dl (31-36); Mean Corpuscular Hemoglobin 33 pg (27-31); Mean Corpuscular Volume 98 fL (80-94); Mean Platelet Volume 10 um3 (7.4-10.4); Red Blood Count 3.42 10^6/ul (4.0-5.4); Red Cell Distribution Width 14 % (10.5-15)
[2017-04-17 14:43] LABS: ALT 10 U/L (7-52); Albumin 4.3 g/dL (3.2-5.2); Alkaline Phosphatase 58 U/L (34-104); BUN/Creatinine Ratio 3.8 (8-20); Blood Urea Nitrogen 75 mg/dL (6-24); C Reactive Protein < 1.00 mg/L (< 5.00); CO2 Carbon Dioxide 18 mmol/L (22-32); Calcium 8.3 mg/dL (8.6-10.3); Chloride 100 mmol/L (101-111); EGFR African American 3.6 (>60); EGFR Non-African American 2.8 (>60); Globulin 2.5 g/dL (2-4); Glucose 94 mg/dL (70-100); Lipase 164 U/L (11.0-82.0); Sodium 137 mmol/L (133-145); Total Protein 6.8 g/dL (6.4-8.9)
[2017-04-17 14:46] LABS: Anion Gap 19 mmol/L (2-11)
--- NOTE | 2017-04-17 16:00 | RAD ---
CLINICAL HISTORY: Upper abdominal pain, history of splenectomy and nephrectomy COMPARISON: None TECHNIQUE: Multiple contiguous axial CT scans were obtained of the abdomen and pelvis, without intravenous contrast enhancement. Coronal and sagittal multiplanar reformations are submitted for review. Oral contrast was not administered. FINDINGS: The study is limited by the lack of intravenous contrast. This limits evaluation of the solid organs and vasculature. LUNG BASES: The lung bases are clear. LIVER: The liver is normal in shape, size, contour, and attenuation. BILE DUCTS: There is no intrahepatic or extrahepatic biliary dilatation. GALLBLADDER: The gallbladder is normal, without pericholecystic inflammatory change. PANCREAS: The pancreas is normal, without mass or ductal dilatation. SPLEEN: The spleen is not identified. There is a small amount of subphrenic gas. The upper quadrant with inflammatory change. UPPER GI TRACT: Evaluation of the gastrointestinal tract is limited by incomplete gastric distention. The upper GI tract is unremarkable. SMALL BOWEL AND MESENTERY: The small bowel is normal in contour, course, and caliber. There is no obstruction or dilatation. COLON: The colon is normal in contour, course, caliber. There is no pericolonic inflammatory change. ADRENALS: Normal bilaterally. KIDNEYS: The patient is status post [May. The right kidney is atrophic. BLADDER: The bladder is smooth in contour. PELVIC ORGANS: The prostate gland is normal. The seminal vesicles are symmetric. AORTA: The aorta is normal. IVC: Unremarkable LYMPH NODES: There is no lymphadenopathy by size criteria. ABDOMINAL WALL: The peritoneal dialysis catheter is noted BONES AND SOFT TISSUES: Degenerative changes noted at L5-S1 OTHER: None IMPRESSION: THERE IS INFLAMMATORY CHANGE WITH A SMALL AMOUNT OF FREE INTRAPERITONEAL GAS IN THE LEFT UPPER QUADRANT. WHILE THE SMALL AMOUNT OF GAS MAY BE SECONDARY TO THE PRESENCE OF A PERITONEAL DIALYSIS CATHETER, THE INFLAMMATORY CHANGE IN THE LEFT UPPER QUADRANT IS GREATER THAN EXPECTED FOR REMOTE POST SPLENECTOMY SURGICAL CHANGE PRELIMINARY FINDINGS WERE DISCUSSED WITH DR. CHRISTINE AT APPROXIMATELY 3:56 PM ON APRIL 17, 2017.
[2017-04-17 17:02] LABS: Urine Bacteria Absent (Absent); Urine Bilirubin Negative (Negative); Urine Glucose 2+(150 mg/dL) (Negative); Urine Nitrite Negative (Negative)
[2017-04-17] MEDS ORDERED: Morphine INJ* 4 MG/ML 1 ML CARPUJECT IV ONE (17:14)
[2017-04-17 20:13] LABS: Body Fluid Appearance Clear; Body Fluid Total Cells Counted 17
[2017-04-17 20:19] LABS: Body Fluid WBC 68 /mcL
[2017-04-17] MEDS ORDERED: Ondansetron ODT TAB* 4 MG PO ONE (20:56)
--- NOTE | 2017-04-17 21:02 | ED ---
Yesenia Ibrahim Thomas, scribed for Shane Aranda MD on 04/17/17 at 1505 . GI/ HPI - HPI Summary HPI Summary: The patient is a 32 year old male presenting with nausea, vomiting, dry heaving , and abdominal cramping that began earlier today. He has lupus are recently started Benlysta. He is on peritoneal dialysis. Patient denies fever and chills. PSHx includes splenectomy, nephrectomy, peritoneal catheter placement and repositioning. - History of Current Complaint Chief Complaint: EDAbdPain Time Seen by Provider: 04/17/17 14:37 Stated Complaint: GENERAL ILLNESS Hx Obtained From: Patient Onset/Duration: Started Hours Ago - earlier today, Still Present Timing: Constant Severity: Moderate Current Severity: Moderate Pain Intensity: 4 Associated Signs and Symptoms: Positive: Other: - Nausea, vomit, dry heaves, abd cramping. Negative: Fever, Chills Alleviating Factor(s): Nothing - Additional Pertinent History Primary Care Physician: TYREE - Allergy/Home Medications Allergies/Adverse Reactions: Allergies Allergy/AdvReac Type Severity Reaction Status Date / Time Hydralazine Allergy Shortness Verified 04/17/17 14:04 of Breath Prednisone AdvReac Hallucinati Verified 04/17/17 14:04 ons PMH/Surg Hx/FS Hx/Imm Hx Previously Healthy: No Endocrine/Hematology History: Reports: Hx Systemic Lupus Erythematosus Denies: Hx Diabetes, Hx Thyroid Disease Cardiovascular History: Reports: Hx Hypertension Denies: Hx Peripheral Vascular Disease Comment Only: Other Cardiovascular Problems/Disorders - Hx LUPUS Respiratory History: Reports: Hx Asthma, Hx Seasonal Allergies, Other Respiratory Problems/Disorders - Hx pleurisy. History: Reports: Hx Dialysis - TTS, Other Problems/Disorders - Kidney cancer, unilateral nephrectomy Musculoskeletal History: Reports: Other Musculoskeletal History - Lupus: generlized pain Denies: Hx Arthritis, Hx Osteoporosis Sensory History: Reports: Hx Contacts or Glasses Denies: Hx Hearing Aid Opthamlomology History: Reports: Hx Contacts or Glasses Neurological History: Denies: Hx Seizures, Hx Transient Ischemic Attacks (TIA) Psychiatric History: Reports: Hx Anxiety - Cancer History Cancer Type, Location and Year: Kidney cancer, September 2014 in [place]. Hx Chemotherapy: Yes - For lupus. - Surgical History Surgery Procedure, Year, and Place: Nephrectomy, splenectomy, Inguinal hernia repaired, multiple fistula placements. Hx Anesthesia Reactions: No Infectious Disease History: No Infectious Disease History: Reports: Hx of Known/Suspected MRSA Denies: Traveled Outside the [place] in Last 30 Days - Family History Known Family History: Positive: Hypertension, Diabetes - Social History Alcohol Use: None Hx Substance Use: No Substance Use Type: Reports: None Hx Tobacco Use: Yes Smoking Status (MU): Former Smoker Type: Cigarettes Amount Used/How Often: 5-10 cigs per day for 15 years until quit Length of Time of Smoking/Using Tobacco: 15 years Have You Smoked in the Last Year: Yes Review of Systems Negative: Fever, Chills Positive: Diarrhea, Nausea, Other - Abd cramping, dry heaving All Other Systems Reviewed And Are Negative: Yes Physical Exam - Summary Physical Exam Summary: General: Mildly ill-appearing. No pain distress Skin: warm, color reflects adequate perfusion, dry Head: normal Eyes: EOMI, ZACHARY ENT: normal Neck: supple, nontender Respiratory: CTA, breath sounds present Cardiovascular: RRR Abdomen: Soft. He is minimally tender to his epigastrium and his left abdomen. There is a dialysis catheter with no erythema and no drainage. Bowel: Hypoactive bowel sounds Musculoskeletal: normal, strength/ROM intact Neurological: normal, sensory/motor intact, A&O x3 Psychological: affect/mood appropriate Triage Information Reviewed: Yes Vital Signs On Initial Exam: Initial Vitals Temp Pulse Resp BP Pulse Ox 98.2 F 80 17 147/90 92 04/17/17 11:43 04/17/17 11:43 04/17/17 11:43 04/17/17 11:43 04/17/17 11:43 Vital Signs Reviewed: Yes - [place] Coma Scale Coma Scale Total: 15 Diagnostics - Vital Signs Vital Signs Temp Pulse Resp BP Pulse Ox 04/17/17 14:02 78 100 04/17/17 14:01 139/67 04/17/17 13:21 98.7 F 77 16 155/91 99 04/17/17 11:43 98.2 F 80 17 147/90 92 - Laboratory Lab Results: Lab Results 04/17/17 04/17/17 04/17/17 Range/Units 14:14 14:14 14:14 WBC 9.0 (3.5-10.8) 10^3/ul RBC 3.42 L (4.0-5.4) 10^6/ul Hgb 11.3 L (14.0-18.0) g/dl Hct 34 L (42-52) % MCV 98 H (80-94) fL MCH 33 H (27-31) pg MCHC 34 (31-36) g/dl RDW 14 (10.5-15) % Plt Count 292 (150-450) 10^3/ul MPV 10 (7.4-10.4) um3 Neut % (Auto) 92.6 H (38-83) % Lymph % (Auto) 4.5 L (25-47) % [place] % (Auto) 1.8 (1-9) % Eos % (Auto) 0 (0-6) % Baso % (Auto) 1.1 (0-2) % Absolute Neuts (auto) 8.4 H (1.5-7.7) 10^3/ul Absolute Lymphs (auto) 0.4 L (1.0-4.8) 10^3/ul Absolute Monos (auto) 0.2 (0-0.8) 10^3/ul Absolute Eos (auto) 0 (0-0.6) 10^3/ul Absolute Basos (auto) 0.1 (0-0.2) 10^3/ul Absolute Nucleated RBC 0 10^3/ul Nucleated RBC % 0 Sodium 137 (133-145) mmol/L Potassium TNP Chloride 100 L (101-111) mmol/L Carbon Dioxide 18 L (22-32) mmol/L Anion Gap 19 H (2-11) mmol/L BUN 75 H (6-24) mg/dL Creatinine 19.51 H (0.67-1.17) mg/dL Est GFR ( Amer) 3.6 (>60) Est GFR (Non-Af Amer) 2.8 (>60) BUN/Creatinine Ratio 3.8 L (8-20) Glucose 94 (70-100) mg/dL Lactic Acid 0.9 (0.5-2.0) mmol/L Calcium 8.3 L (8.6-10.3) mg/dL Magnesium TNP Total Bilirubin 0.40 (0.2-1.0) mg/dL AST TNP ALT 10 (7-52) U/L Alkaline Phosphatase 58 (34-104) U/L C-Reactive Protein < 1.00 (< 5.00) mg/L Total Protein 6.8 (6.4-8.9) g/dL Albumin 4.3 (3.2-5.2) g/dL Globulin 2.5 (2-4) g/dL Albumin/Globulin Ratio 1.7 (1-3) Lipase 164 H (11.0-82.0) U/L Result Diagrams: 04/17/17 14:14 04/17/17 15:10 Lab Statement: Any lab studies that have been ordered have been reviewed, and results considered in the medical decision making process. - CT CT Abd/Pel CT Interpretation: Positive (See Comments) - THERE IS INFLAMMATORY CHANGE WITH A SMALL AMOUNT OF FREE INTRAPERITONEAL GAS IN THE LEFT UPPER QUADRANT. WHILE THE SMALL AMOUNT OF GAS MAY BE SECONDARY TO THE PRESENCE OF A PERITONEAL DIALYSIS CATHETER, THE INFLAMMATORY CHANGE IN THE LEFT UPPER QUADRANT IS GREATER THAN EXPECTED FOR REMOTE POST SPLENECTOMY SURGICAL CHANGE. Dr. Aranda has reviewed this report. CT Interpretation Completed By: Radiologist OSMAR Course/Dx - Course Course Of Treatment: IMPROVED IN ED. DISCUSSED WITH DR JOHN. PERITONEAL FLUID CELL COUNT REVIEWED WITH DR JOHN. PATIENT FEELS COMFORTABLE WITH DISCHARGE HOME. F/U WITH HIS DOCTOR; RETURN IF WORSE. NO CRITICAL CARE TIME. Assessment/Plan: Medications reviewed. Blood pressure noted. Allergies noted. - Diagnoses Provider Diagnoses: Abdominal pain, Nausea vomiting and diarrhea - Physician Notifications Discussed Care Of Patient With: Sheryl Thibodeaux Time Discussed With Above Provider: 16:30 Instructed by Provider To: Other - I consulted with Dr. Thibodeaux (surgery), who will look at the CT scan. At 1655, I consulted with Dr. John (embossing machine operator), who requests a cell count of the peritoneal dialysis fluid. At 20:32, Dr. John reviewed the cell count of the peritoneal dialysis fluid, and he does not suspect that the patient has peritonitis. Discharge - Discharge Plan Condition: Stable Disposition: HOME Prescriptions: Ondansetron ODT TAB* [Zofran 4 MG Odt TAB*] 4 mg PO Q6H PRN #109 tab.odt PRN Reason: Nausea Patient Education Materials: Acute Nausea and Vomiting (ED), Acute Diarrhea (ED ), Abdominal Pain (ED) Referrals: Mirza Valentine DO [Primary Care Provider] - Additional Instructions: FOLLOW UP WITH YOUR DOCTOR. RETURN TO THE EMERGENCY DEPARTMENT FOR ANY WORSENING OF YOUR CONDITION OR QUESTIONS OR CONCERNS. The documentation as recorded by the Yesenia mcmillan Thomas accurately reflects the service I personally performed and the decisions made by me, Shane Aranda MD.
[2017-04-17 21:08] VITALS: BP 155/86
== END 2017-04-17 21:21 | disposition home or self-care (01) ==
LOC: ED 11:42
DX: R10.9 Unspecified abdominal pain (principal); R19.7 Diarrhea, unspecified; R11.0 Nausea; Z87.891 Personal history of nicotine dependence
CPT/HCPCS: 36415; 74176; 80053; 81003; 81015; 83605; 83690; 85025; 86140; 87040; 89051; 96374; 96375; 96376; 99283; A9270-GY; J2270; J2405

== ENCOUNTER 2017-08-12 12:32 | Emergency (ER) | payer MEDICARE, MEDICAID ==
[2017-08-12] MEDS ORDERED: Morphine VIAL* 4 MG/ML VIAL (1 ml vial) IV PRN (12:57)
[2017-08-12] MEDS ORDERED: Ondansetron INJ* 2 MG/ML VIAL IV ONE (12:57)
[2017-08-12 13:36] LABS: ABS Basophils 0 10^3/ul (0-0.2); ABS Eosinophils 0 10^3/ul (0-0.6); ABS Lymphocytes 0.5 10^3/ul (1.0-4.8); ABS Monocytes 0.1 10^3/ul (0-0.8); ABS Neutrophils 8.6 10^3/ul (1.5-7.7); ABS Nucleated RBC 0 10^3/ul; Eosinophil % 0 % (0-6); Hematocrit 30 % (42-52); Hemoglobin 10.3 g/dl (14.0-18.0); Lymphocyte % 5.3 % (25-47); Mean Corpuscular HGB Conc 34 g/dl (31-36); Mean Corpuscular Hemoglobin 33 pg (27-31); Mean Corpuscular Volume 97 fL (80-94); Mean Platelet Volume 9.9 um3 (7.4-10.4); Nucleated Red Blood Cells % 0; Platelet Count 247 10^3/ul (150-450); Red Blood Count 3.09 10^6/ul (4.0-5.4); Red Cell Distribution Width 14 % (10.5-15); White Blood Count 9.3 10^3/ul (3.5-10.8)
--- NOTE | 2017-08-12 13:50 | RAD ---
INDICATION: Abdominal wall pain. Dialysis patient with indwelling abdominal catheter. Comparison: No relevant prior exams available on the [facility] for comparison. Technique: Supine and upright views of the abdomen. Report: Clear visualized lung bases. Reference the standing view a small volume of free intraperitoneal gas is visualized beneath the RIGHT hemidiaphragm however this is nonspecific given presence of the peritoneal dialysis catheter. Unremarkable bowel gas pattern. Moderate stool in the colon with mild rectal distension with stool. RIGHT para midline pelvic peritoneal dialysis catheter tip. Negative for suspicious calcifications. Pelvic phleboliths noted. Unremarkable soft tissue contours. LEFT upper quadrant surgical clips corresponding with prior splenectomy and LEFT nephrectomy. Mild osteoarthritis of the hips. IMPRESSION: Small volume of free intraperitoneal gas is visualized beneath the RIGHT hemidiaphragm however this is nonspecific given presence of the peritoneal dialysis catheter. No additional radiographic abnormality evident.
[2017-08-12 13:53] LABS: EGFR Non-African American 2.8 (>60)
[2017-08-12] MEDS ORDERED: Morphine VIAL* 4 MG/ML VIAL (1 ml vial) IV ONE (14:30)
[2017-08-12 16:00] VITALS: BP 131/71
--- NOTE | 2017-08-12 16:38 | ED ---
Rene Ibrahim Angela, scribed for Diego Oliveros MD on 08/12/17 at 1304 . Abdominal Pain/Male - HPI Summary HPI Summary: This pt is a 32 y/o male presenting to [facility] via EMS for abd pain, nausea, and vomiting. Pt states his pain is aggravated with bowel movements. He describes his pain as dull and constant. Pt rates his pain Denies fever, chills. Pt is on peritoneal dialysis. Pt was in the ED last week for the same complaint. He is also currently on Benlista for lupus. PMHx includes end stage renal disease on dialysis. - History of Current Complaint Stated Complaint: N/V Time Seen by Provider: 08/12/17 12:46 Hx Obtained From: Patient Onset/Duration: Lasting Days, Still Present Timing: Constant Severity Currently: Moderate Pain Intensity: 4 Pain Scale Used: 0-10 Numeric Location: Diffuse Radiates: No Character: Dull Aggravating Factor(s): Other: - bowel movements Alleviating Factor(s): Nothing Associated Signs And Symptoms: Positive: Nausea, Vomiting. Negative: Fever, Constipation, Diarrhea - Allergies/Home Medications Allergies/Adverse Reactions: Allergies Allergy/AdvReac Type Severity Reaction Status Date / Time hydralazine Allergy Intermediate Shortness Verified 08/06/17 15:05 of Breath prednisone Allergy Hallucinati Verified 08/06/17 15:05 ons PMH/Surg Hx/FS Hx/Imm Hx Endocrine/Hematology History: Reports: Hx Systemic Lupus Erythematosus Denies: Hx Diabetes, Hx Thyroid Disease Cardiovascular History: Reports: Hx Hypertension Denies: Hx Peripheral Vascular Disease Comment Only: Other Cardiovascular Problems/Disorders - Hx LUPUS Respiratory History: Reports: Hx Asthma, Hx Seasonal Allergies, Other Respiratory Problems/Disorders - Hx pleurisy. History: Reports: Hx Dialysis - TTS, Other Problems/Disorders - Kidney cancer, unilateral nephrectomy Musculoskeletal History: Reports: Other Musculoskeletal History - Lupus: generlized pain Denies: Hx Arthritis, Hx Osteoporosis Sensory History: Reports: Hx Contacts or Glasses Denies: Hx Hearing Aid Opthamlomology History: Reports: Hx Contacts or Glasses Neurological History: Denies: Hx Seizures, Hx Transient Ischemic Attacks (TIA) Psychiatric History: Reports: Hx Anxiety - Cancer History Cancer Type, Location and Year: Kidney cancer, September 2014 in [place]. Hx Chemotherapy: Yes - For lupus. - Surgical History Surgery Procedure, Year, and Place: Nephrectomy, splenectomy, Inguinal hernia repaired, multiple fistula placements. Hx Anesthesia Reactions: No Infectious Disease History: Reports: Hx of Known/Suspected MRSA - Family History Known Family History: Positive: Hypertension, Diabetes - Social History Alcohol Use: None Hx Substance Use: No Substance Use Type: Reports: None Hx Tobacco Use: Yes Smoking Status (MU): Former Smoker Type: Cigarettes Amount Used/How Often: 5-10 cigs per day for 15 years until quit Length of Time of Smoking/Using Tobacco: 15 years Have You Smoked in the Last Year: Yes Review of Systems Negative: Fever, Chills Eyes: Negative ENT: Negative Positive: Abdominal Pain, Vomiting, Nausea Musculoskeletal: Negative Skin: Negative Neurological: Negative All Other Systems Reviewed And Are Negative: Yes Physical Exam - Summary Physical Exam Summary: VITAL SIGNS: Reviewed. GENERAL: Patient is a well-developed and nourished male who is lying comfortable in the stretcher. Patient is not in any acute respiratory distress. HEAD AND FACE: Normocephalic and atraumatic. EYES: PERRLA, EOMI x 2, No injected conjunctiva. EARS: Hearing grossly intact. Ear canals and tympanic membranes are WNL. MOUTH: Oropharynx within normal limits. NECK: Supple, trachea is midline, no adenopathy, no JVD. CHEST: Symmetric, no tenderness at palpation LUNGS: Clear to auscultation bilaterally. No wheezing or crackles. CVS: RRR, S1 and S2 present, no murmurs or gallops appreciated. ABDOMEN: Soft, non-tender. No signs of distention. Positive bowel sounds. No rebound no guarding, and no masses palpated. No abdominal bruit or pulsations. EXTREMITIES: FROM in all major joints, no edema, no cyanosis or clubbing. NEURO: Alert and oriented x 3. No acute neurological deficits. Speech is normal. SKIN: Dry and warm Triage Information Reviewed: Yes Vital Signs Reviewed: Yes Diagnostics - Laboratory Result Diagrams: 08/12/17 13:28 08/12/17 13:28 Lab Statement: Any lab studies that have been ordered have been reviewed, and results considered in the medical decision making process. - Radiology Abdomen XR Xray Interpretation: Positive (See Comments) - IMPRESSION: small volume of free intraperitioneal gas is visualized beneath the RIGHT hemidiaphragm however this is nonspecific given presence of the peritoneal dialysis catheter. No additional radiographic abnormality evident. Dr. Oliveros has reviewed this radiology report. Radiology Interpretation Completed By: Radiologist Re-Evaluation - Re-Evaluation First Eval Re-Evaluation Time: 14:27 Change: Improved Comment: Pt is feeling better. I discussed the blood work results with the pt. Abdominal Pain Fem Course/Dx - Course Assessment/Plan: This pt is a 32 y/o male presenting to [facility] via EMS for abd pain, nausea, and vomiting. Pt states his pain is aggravated with bowel movements. He describes his pain as dull and constant. Pt rates his pain Denies fever, chills. Pt is on peritoneal dialysis. Pt was in the ED last week for the same complaint. He is also currently on Benlista for lupus. Test results without any significant abnormalities except for chronic anemia, BUN of 119, creatinine of 19.07, consistent with chronic end stage renal disease, chronic increase of lipase. Abdomen XR shows small volume of free intraperitoneal gas is visualized beneath the RIGHT hemidiaphragm however this is nonspecific given presence of the peritoneal dialysis catheter. No additional radiographic abnormality evident. In the ED course the pt was given Zofran for the nausea and morphine for the pain. After these medications pts symptoms have improved and is tolerating PO without nausea or vomiting. The abdomen is soft and nontender before discharge, therefore I dont think he has peritonitis. Symptoms have improved and patient is back to his baseline. Patient declined an abdominal and pelvic CT. Pt will be discharged home with follow up from his gang leader. He is instructed to return to the ED for any worsening or new symptoms. Pt will be given a prescription for [place] and Compazine. Pt is hemodynamically stable, alert and oriented x3. - Diagnoses Provider Diagnoses: Nausea and vomiting, Abdominal pain Discharge - Sign-Out/Discharge Documenting (check all that apply): Discharge - discharge to home - Discharge Plan Condition: Stable Disposition: HOME Prescriptions: Hydrocodone/Acetaminophen [[place] 5-325 Tablet] 1 each PO Q6H PRN #12 tablet MDD 4 PRN Reason: Pain Prochlorperazine TAB* [Compazine Tab*] 10 mg PO Q8H PRN #10 tab PRN Reason: Vomiting Patient Education Materials: Acute Nausea and Vomiting (ED), Acute Abdominal Pain (ED) Referrals: Mirza Valentine DO [Primary Care Provider] - Charanjit Flores MD [Medical Doctor] - Additional Instructions: Please follow up with your gang leader. RETURN TO THE ED FOR ANY NEW OR WORSENING SYMPTOMS. - Billing Disposition and Condition Condition: STABLE Disposition: HOME The documentation as recorded by the Rene mcmillan Angela accurately reflects the service I personally performed and the decisions made by me, Diego Oliveros MD.
== END 2017-08-12 15:55 | disposition home or self-care (01) ==
LOC: ED 12:32
DX: R11.2 Nausea with vomiting, unspecified (principal); M32.9 Systemic lupus erythematosus, unspecified; Z85.528 Personal history of other malignant neoplasm of kidney; F41.9 Anxiety disorder, unspecified; Z87.891 Personal history of nicotine dependence; D64.9 Anemia, unspecified; I12.0 Hypertensive chronic kidney disease with stage 5 chronic kidney disease or end stage renal disease; N18.6 End stage renal disease; Z99.2 Dependence on renal dialysis
CPT/HCPCS: 36415; 74019; 80053; 83690; 83735; 85025; 86140; 96374; 96375; 99283; J2270; J2405

== ENCOUNTER 2017-09-01 20:15 | Emergency (ER) | payer MEDICARE, OTHER ==
--- NOTE | 2017-09-01 21:31 | RAD ---
HISTORY: Chest pain COMPARISONS: August 16, 2016 VIEWS: 1: frontal portable view of the chest at 9:00 PM FINDINGS: LINES AND TUBES: None. CARDIOMEDIASTINAL SILHOUETTE: The cardiac silhouette is mildly enlarged. The cardiomediastinal silhouette is otherwise normal for portable technique. PLEURA: The costophrenic angles are sharp. No pleural abnormalities are noted. LUNG PARENCHYMA: The lungs are clear. ABDOMEN: The upper abdomen is clear. There is no subphrenic gas. BONES AND SOFT TISSUES: No bone or soft tissue abnormalities are noted. IMPRESSION: MILD CARDIOMEGALY. NO ACTIVE CARDIOPULMONARY DISEASE.
[2017-09-01 22:30] LABS: ABS Basophils 0 10^3/ul (0-0.2); ABS Eosinophils 0 10^3/ul (0-0.6); ABS Lymphocytes 0.2 10^3/ul (1.0-4.8); ABS Monocytes 0.3 10^3/ul (0-0.8); ABS Neutrophils 7.5 10^3/ul (1.5-7.7); ABS Nucleated RBC 0 10^3/ul; Eosinophil % 0 % (0-6); Hematocrit 28 % (42-52); Hemoglobin 9.4 g/dl (14.0-18.0); Lymphocyte % 2.8 % (25-47); Mean Corpuscular HGB Conc 33 g/dl (31-36); Mean Corpuscular Hemoglobin 33 pg (27-31); Mean Corpuscular Volume 100 fL (80-94); Mean Platelet Volume 9.2 um3 (7.4-10.4); Nucleated Red Blood Cells % 0; Platelet Count 271 10^3/ul (150-450); Red Blood Count 2.84 10^6/ul (4.0-5.4); Red Cell Distribution Width 14 % (10.5-15); White Blood Count 8.1 10^3/ul (3.5-10.8)
[2017-09-01 22:39] LABS: INR 0.84 (0.77-1.02)
[2017-09-01] MEDS ORDERED: Sodium Polystyrene ORAL.SOL* 15 GM/60 ML BTL PO ONE (23:19)
[2017-09-01] MEDS ORDERED: traMADol TAB* 50 MG PO ONE (23:19)
[2017-09-02 00:50] VITALS: BP 147/86
--- NOTE | 2017-09-02 03:42 | ED ---
Yesenia Ibrahim Thomas, scribed for Flo Kaiser MD on 09/02/17 at 0012 . HPI Chest Pain - HPI Summary HPI Summary: The patient is a 32 year old male with a history of lupus on peritoneal dialysis. Today, he went to the infusion center in [place] for his monthly Benlysta. He complains of chest and left shoulder pain that began before his infusion. He had his potassium drawn at the infusion center and it was 6.5, prompting an ED visit. He is doing his peritoneal dialysis at the moment. - History of Current Complaint Chief Complaint: EDChestPainROMI Time Seen by Provider: 09/01/17 23:05 Hx Obtained From: Patient Onset/Duration: Started Hours Ago, Still Present Timing: Constant Current Severity: Moderate Pain Intensity: 7 Pain Scale Used: 0-10 Numeric Aggravating Factor(s): Nothing Alleviating Factor(s): Nothing Associated Signs and Symptoms: Positive: Chest Pain, Other: - Left shoulder pain - Additional Pertinent History Primary Care Physician: TYREE - Allergy/Home Medications Allergies/Adverse Reactions: Allergies Allergy/AdvReac Type Severity Reaction Status Date / Time hydralazine Allergy Intermediate Shortness Verified 08/06/17 15:05 of Breath prednisone Allergy Hallucinati Verified 08/06/17 15:05 ons PMH/Surg Hx/FS Hx/Imm Hx Endocrine/Hematology History: Reports: Hx Systemic Lupus Erythematosus Denies: Hx Diabetes, Hx Thyroid Disease Cardiovascular History: Reports: Hx Hypertension Denies: Hx Peripheral Vascular Disease Comment Only: Other Cardiovascular Problems/Disorders - Hx LUPUS Respiratory History: Reports: Hx Asthma, Hx Seasonal Allergies, Other Respiratory Problems/Disorders - Hx pleurisy. History: Reports: Hx Dialysis - TTS, Other Problems/Disorders - Kidney cancer, unilateral nephrectomy Musculoskeletal History: Reports: Other Musculoskeletal History - Lupus: generlized pain Denies: Hx Arthritis, Hx Osteoporosis Sensory History: Reports: Hx Contacts or Glasses Denies: Hx Hearing Aid Opthamlomology History: Reports: Hx Contacts or Glasses Neurological History: Denies: Hx Seizures, Hx Transient Ischemic Attacks (TIA) Psychiatric History: Reports: Hx Anxiety - Cancer History Cancer Type, Location and Year: Kidney cancer, September 2014 in [place]. Hx Chemotherapy: Yes - For lupus. - Surgical History Surgery Procedure, Year, and Place: Nephrectomy, splenectomy, Inguinal hernia repaired, multiple fistula placements. Hx Anesthesia Reactions: No Infectious Disease History: No Infectious Disease History: Reports: Hx of Known/Suspected MRSA Denies: Traveled Outside the [place] in Last 30 Days - Family History Known Family History: Positive: Hypertension, Diabetes - Social History Alcohol Use: None Hx Substance Use: No Substance Use Type: Reports: None Hx Tobacco Use: Yes Smoking Status (MU): Former Smoker Type: Cigarettes Amount Used/How Often: 5-10 cigs per day for 15 years until quit Length of Time of Smoking/Using Tobacco: 15 years Have You Smoked in the Last Year: Yes Review of Systems Positive: Chest Pain Positive: Other - Left shoulder pain All Other Systems Reviewed And Are Negative: Yes Physical Exam - Summary Physical Exam Summary: VITAL SIGNS: Reviewed. GENERAL: Patient is a well-developed and nourished female who is lying comfortable in the stretcher. Patient is not in any acute respiratory distress. HEAD AND FACE: No signs of trauma. No ecchymosis, hematomas or skull depressions. No sinus tenderness. EYES: PERRLA, EOMI x 2, No injected conjunctiva, no nystagmus. EARS: Hearing grossly intact. Ear canals and tympanic membranes are within normal limits. MOUTH: Oropharynx within normal limits. NECK: Supple, trachea is midline, no adenopathy, no JVD, no carotid bruit, no c- spine tenderness, neck with full ROM. CHEST: Symmetric, no tenderness at palpation LUNGS: Clear to auscultation bilaterally. No wheezing or crackles. CVS: Regular rate and rhythm, S1 and S2 present, no murmurs or gallops appreciated. ABDOMEN: He has a periotoneal dialysis catheter in the right lower abdomen. Soft , non-tender. No signs of distention. No rebound no guarding, and no masses palpated. Bowel sounds are normal. EXTREMITIES: FROM in all major joints, no edema, no cyanosis or clubbing. NEURO: Alert and oriented x 3. No acute neurological deficits. Speech is normal and follows commands. SKIN: Dry and warm Triage Information Reviewed: Yes Vital Signs On Initial Exam: Initial Vitals Temp Pulse Resp BP Pulse Ox 100.0 F 98 20 156/82 99 09/01/17 20:21 09/01/17 20:21 09/01/17 20:21 09/01/17 20:21 09/01/17 20:21 Vital Signs Reviewed: Yes Diagnostics - Vital Signs Vital Signs Temp Pulse Resp BP Pulse Ox 09/01/17 20:21 100.0 F 98 20 156/82 99 - Laboratory Lab Results: Lab Results 09/01/17 09/01/17 09/01/17 Range/Units 22:14 22:14 22:14 WBC 8.1 (3.5-10.8) 10^3/ul RBC 2.84 L (4.0-5.4) 10^6/ul Hgb 9.4 L (14.0-18.0) g/dl Hct 28 L (42-52) % MCV 100 H (80-94) fL MCH 33 H (27-31) pg MCHC 33 (31-36) g/dl RDW 14 (10.5-15) % Plt Count 271 (150-450) 10^3/ul MPV 9.2 (7.4-10.4) um3 Neut % (Auto) 93.7 H (38-83) % Lymph % (Auto) 2.8 L (25-47) % Morgan % (Auto) 3.3 (0-7) % Eos % (Auto) 0 (0-6) % Baso % (Auto) 0.2 (0-2) % Absolute Neuts (auto) 7.5 (1.5-7.7) 10^3/ul Absolute Lymphs (auto) 0.2 L (1.0-4.8) 10^3/ul Absolute Monos (auto) 0.3 (0-0.8) 10^3/ul Absolute Eos (auto) 0 (0-0.6) 10^3/ul Absolute Basos (auto) 0 (0-0.2) 10^3/ul Absolute Nucleated RBC 0 10^3/ul Nucleated RBC % 0 INR (Anticoag Therapy) 0.84 (0.77-1.02) APTT 25.2 L (26.0-36.3) seconds Sodium 138 L (139-145) mmol/L Potassium 5.8 H (3.5-5.0) mmol/L Chloride 98 L (101-111) mmol/L Carbon Dioxide 20 L (22-32) mmol/L Anion Gap 20 H (2-11) mmol/L BUN 115 H (6-24) mg/dL Creatinine 18.30 H (0.67-1.17) mg/dL Est GFR ( Amer) 3.8 (>60) Est GFR (Non-Af Amer) 3.0 (>60) BUN/Creatinine Ratio 6.3 L (8-20) Glucose 137 H (70-100) mg/dL Lactic Acid (0.5-2.0) mmol/L Calcium 9.2 (8.6-10.3) mg/dL Magnesium 2.3 (1.9-2.7) mg/dL Total Bilirubin 0.40 (0.2-1.0) mg/dL AST 14 (13-39) U/L ALT 13 (7-52) U/L Alkaline Phosphatase 45 (34-104) U/L Total Creatine Kinase 134 (10-223) U/L CK-MB (CK-2) 3.2 (0.6-6.3) ng/mL Troponin I 0.13 H* (<0.04) ng/mL C-Reactive Protein 3.36 (< 5.00) mg/L B-Natriuretic Peptide ( - 100) pg/mL Total Protein 6.2 L (6.4-8.9) g/dL Albumin 3.8 (3.2-5.2) g/dL Globulin 2.4 (2-4) g/dL Albumin/Globulin Ratio 1.6 (1-3) Lipase 163 H (11.0-82.0) U/L TSH 1.37 (0.34-5.60) mcIU/mL 09/01/17 09/01/17 Range/Units 22:14 22:14 WBC (3.5-10.8) 10^3/ul RBC (4.0-5.4) 10^6/ul Hgb (14.0-18.0) g/dl Hct (42-52) % MCV (80-94) fL MCH (27-31) pg MCHC (31-36) g/dl RDW (10.5-15) % Plt Count (150-450) 10^3/ul MPV (7.4-10.4) um3 Neut % (Auto) (38-83) % Lymph % (Auto) (25-47) % Morgan % (Auto) (0-7) % Eos % (Auto) (0-6) % Baso % (Auto) (0-2) % Absolute Neuts (auto) (1.5-7.7) 10^3/ul Absolute Lymphs (auto) (1.0-4.8) 10^3/ul Absolute Monos (auto) (0-0.8) 10^3/ul Absolute Eos (auto) (0-0.6) 10^3/ul Absolute Basos (auto) (0-0.2) 10^3/ul Absolute Nucleated RBC 10^3/ul Nucleated RBC % INR (Anticoag Therapy) (0.77-1.02) APTT (26.0-36.3) seconds Sodium (139-145) mmol/L Potassium (3.5-5.0) mmol/L Chloride (101-111) mmol/L Carbon Dioxide (22-32) mmol/L Anion Gap (2-11) mmol/L BUN (6-24) mg/dL Creatinine (0.67-1.17) mg/dL Est GFR ( Amer) (>60) Est GFR (Non-Af Amer) (>60) BUN/Creatinine Ratio (8-20) Glucose (70-100) mg/dL Lactic Acid 1.6 (0.5-2.0) mmol/L Calcium (8.6-10.3) mg/dL Magnesium (1.9-2.7) mg/dL Total Bilirubin (0.2-1.0) mg/dL AST (13-39) U/L ALT (7-52) U/L Alkaline Phosphatase (34-104) U/L Total Creatine Kinase (10-223) U/L CK-MB (CK-2) (0.6-6.3) ng/mL Troponin I (<0.04) ng/mL C-Reactive Protein (< 5.00) mg/L B-Natriuretic Peptide 79 ( - 100) pg/mL Total Protein (6.4-8.9) g/dL Albumin (3.2-5.2) g/dL Globulin (2-4) g/dL Albumin/Globulin Ratio (1-3) Lipase (11.0-82.0) U/L TSH (0.34-5.60) mcIU/mL Result Diagrams: 09/01/17 22:14 09/01/17 22:14 Lab Statement: Any lab studies that have been ordered have been reviewed, and results considered in the medical decision making process. - Radiology CXR Xray Interpretation: No Acute Changes - IMPRESSION: MILD CARDIOMEGALY. NO ACTIVE CARDIOPULMONARY DISEASE. Dr. Kaiser has reviewed this report. Radiology Interpretation Completed By: Radiologist - EKG 20:20 Cardiac Rate: NL EKG Rhythm: Sinus Rhythm - at 93 BPM EKG Interpretation: There are not any signs of hyperkalemia. 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 I have given you a referral to Dr. Flores, nephrology, if needed. Return to the emergency department for any new or worsening symptoms. The documentation as recorded by the Yesenia mcmillan Thomas accurately reflects the service I personally performed and the decisions made by me, Flo Kaiser MD.
== END 2017-09-02 00:47 | disposition home or self-care (01) ==
LOC: ED 20:15
DX: R07.89 Other chest pain (principal); I51.7 Cardiomegaly; I10 Essential (primary) hypertension; M32.9 Systemic lupus erythematosus, unspecified; J45.909 Unspecified asthma, uncomplicated; Z85.528 Personal history of other malignant neoplasm of kidney; Z99.2 Dependence on renal dialysis
CPT/HCPCS: 36415; 71045; 80053; 82550; 82553; 83605; 83690; 83735; 83880; 84443; 84484; 85025; 85610; 85730; 86140; 99282; A9270-GY

== ENCOUNTER 2017-10-16 15:33 | Emergency (ER) | payer MEDICARE, MEDICAID ==
[2017-10-16] MEDS ORDERED: traMADol TAB* 50 MG PO ONE (17:04)
[2017-10-16 17:31] LABS: ABS Basophils 0.1 10^3/ul (0-0.2); ABS Eosinophils 0 10^3/ul (0-0.6); ABS Lymphocytes 1.2 10^3/ul (1.0-4.8); ABS Monocytes 1.3 10^3/ul (0-0.8); ABS Neutrophils 6.6 10^3/ul (1.5-7.7); ABS Nucleated RBC 0 10^3/ul; Eosinophil % 0.1 % (0-6); Hematocrit 24 % (42-52); Hemoglobin 8.1 g/dl (14.0-18.0); Lymphocyte % 12.5 % (25-47); Mean Corpuscular HGB Conc 34 g/dl (31-36); Mean Corpuscular Hemoglobin 34 pg (27-31); Mean Corpuscular Volume 99 fL (80-94); Mean Platelet Volume 8.9 um3 (7.4-10.4); Nucleated Red Blood Cells % 0; Platelet Count 322 10^3/ul (150-450); Red Blood Count 2.36 10^6/ul (4.00-5.40); Red Cell Distribution Width 14 % (10.5-15); White Blood Count 9.2 10^3/ul (3.5-10.8)
[2017-10-16 17:42] LABS: INR 0.9 (0.77-1.02)
[2017-10-16 17:47] LABS: EGFR Non-African American 3.8 (>60)
--- NOTE | 2017-10-16 18:34 | RAD ---
HISTORY: B/L LEG PAIN COMPARISONS: None relevant TECHNIQUE: Multiple transverse and longitudinal ultrasound images were obtained of the bilateral lower extremities from the level of the common femoral vein inferiorly through to the infrapopliteal veins using grayscale, color Doppler, and spectral Doppler imaging with and without compression and with augmentation. FINDINGS: VEINS: The venous system of the bilateral lower extremities is compressible throughout its course, with normal flow on color Doppler imaging and normal response to augmentation on spectral Doppler imaging. SOFT TISSUES: Unremarkable. OTHER FINDINGS: There is peripheral arterial calcification. There is a small amount of fluid along the proximal femoral arteries bilaterally. IMPRESSION: 1. NO RIGHT LOWER EXTREMITY DEEP VEIN THROMBOSIS. 2. NO LEFT LOWER EXTREMITY DEEP VEIN THROMBOSIS. 3. PERIPHERAL ARTERIAL CALCIFICATION WITH SMALL AMOUNT OF EDEMA ALONG THE PROXIMAL FEMORAL ARTERIES BILATERALLY.
--- NOTE | 2017-10-16 19:16 | ED ---
Beverly Ibrahim Jade, scribed for Shane Aranda MD on 10/16/17 at 1716 . Complex/Multi-Sys Presentation - HPI Summary HPI Summary: Pt is a 32 y/o male who presents to the ED c/o diffuse pain. He states the pain is over both his legs, the bases of his hands, and his wrists, and is described as 8/10 in intensity. The pain started about 6 months ago, and has gradually worsened to the point where he now can barely function these past few days. Pt also states he has bruises covering his legs, and is unsure where they came from. He was referred to neurology, but in the meantime is in extreme discomfort. Pt states nobody knows why he has this pain, and lower extremity US done were all negative. Pt is a frequent hiker, and is unsure if he had a tick bite. He is on dialysis for kidney failure from lupus, and has HTN. He has been taking Naproxen and Tylenol for the pain. Pt has taken Tramidol for pain in the past, but states that he needed to take twice the dose for the medication to work. - History Of Current Complaint Chief Complaint: EDGeneral Time Seen by Provider: 10/16/17 16:52 Hx Obtained From: Patient Onset/Duration: Gradual Onset, Lasting Weeks - About u6 weeks, Still Present Timing: Constant Severity Currently: Severe - 8/10 Aggravating Factor(s): Getting out of a chair. - Allergies/Home Medications Allergies/Adverse Reactions: Allergies Allergy/AdvReac Type Severity Reaction Status Date / Time hydralazine Allergy Intermediate Shortness Verified 08/06/17 15:05 of Breath prednisone Allergy Hallucinati Verified 08/06/17 15:05 ons PMH/Surg Hx/FS Hx/Imm Hx Endocrine/Hematology History: Reports: Hx Systemic Lupus Erythematosus Denies: Hx Diabetes, Hx Thyroid Disease Cardiovascular History: Reports: Hx Hypertension Denies: Hx Peripheral Vascular Disease Comment Only: Other Cardiovascular Problems/Disorders - Hx LUPUS Respiratory History: Reports: Hx Asthma, Hx Seasonal Allergies, Other Respiratory Problems/Disorders - Hx pleurisy. History: Reports: Hx Dialysis - TTS, Other Problems/Disorders - Kidney cancer, unilateral nephrectomy Musculoskeletal History: Reports: Other Musculoskeletal History - Lupus: generlized pain Denies: Hx Arthritis, Hx Osteoporosis Sensory History: Reports: Hx Contacts or Glasses Denies: Hx Hearing Aid Opthamlomology History: Reports: Hx Contacts or Glasses Neurological History: Reports: Other Neuro Impairments/Disorders - Nerve pain - generalized, undiagnosed Denies: Hx Seizures, Hx Transient Ischemic Attacks (TIA) Psychiatric History: Reports: Hx Anxiety - Cancer History Cancer Type, Location and Year: Kidney cancer, September 2014 in [place]. Hx Chemotherapy: Yes - For lupus. - Surgical History Surgery Procedure, Year, and Place: Nephrectomy, splenectomy, Inguinal hernia repaired, multiple fistula placements. Hx Anesthesia Reactions: No Infectious Disease History: No Infectious Disease History: Reports: Hx of Known/Suspected MRSA Denies: Traveled Outside the in Last 30 Days - Family History Known Family History: Positive: Hypertension, Diabetes - Social History Alcohol Use: None Hx Substance Use: No Substance Use Type: Reports: None Hx Tobacco Use: Yes Smoking Status (MU): Former Smoker Type: Cigarettes Amount Used/How Often: 5-10 cigs per day for 15 years until quit Length of Time of Smoking/Using Tobacco: 15 years Have You Smoked in the Last Year: Yes Review of Systems Negative: Fever Neurological: Other - Generalized pain over both legs, bases of hands, and wrists All Other Systems Reviewed And Are Negative: Yes Physical Exam - Summary Physical Exam Summary: General: well-appearing, no pain distress, fistulas over left arm Skin: warm, color reflects adequate perfusion, dry Head: normal Eyes: EOMI, ZACHARY ENT: normal Neck: supple, nontender Respiratory: CTA, breath sounds present Cardiovascular: RRR Abdomen: soft, nontender Bowel: present Musculoskeletal: strength/ROM intact. Mild tenderness inside right upper thigh. Neurological: sensory/motor intact, A&O x3 Psychological: affect/mood appropriate Triage Information Reviewed: Yes Vital Signs On Initial Exam: Initial Vitals Temp Pulse Resp BP Pulse Ox 98.8 F 96 20 124/65 96 10/16/17 15:41 10/16/17 15:41 10/16/17 15:41 10/16/17 15:41 10/16/17 15:41 Vital Signs Reviewed: Yes Diagnostics - Vital Signs Vital Signs Temp Pulse Resp BP Pulse Ox 10/16/17 15:41 98.8 F 96 20 124/65 96 - Laboratory Lab Results: Lab Results 10/16/17 10/16/17 10/16/17 Range/Units 17:25 17:25 17:25 WBC 9.2 (3.5-10.8) 10^3/ul RBC 2.36 L (4.00-5.40) 10^6/ul Hgb 8.1 L (14.0-18.0) g/dl Hct 24 L (42-52) % MCV 99 H (80-94) fL MCH 34 H (27-31) pg MCHC 34 (31-36) g/dl RDW 14 (10.5-15) % Plt Count 322 (150-450) 10^3/ul MPV 8.9 (7.4-10.4) um3 Neut % (Auto) 71.9 (38-83) % Lymph % (Auto) 12.5 L (25-47) % [place] % (Auto) 14.4 H (0-7) % Eos % (Auto) 0.1 (0-6) % Baso % (Auto) 1.1 (0-2) % Absolute Neuts (auto) 6.6 (1.5-7.7) 10^3/ul Absolute Lymphs (auto) 1.2 (1.0-4.8) 10^3/ul Absolute Monos (auto) 1.3 H (0-0.8) 10^3/ul Absolute Eos (auto) 0 (0-0.6) 10^3/ul Absolute Basos (auto) 0.1 (0-0.2) 10^3/ul Absolute Nucleated RBC 0 10^3/ul Nucleated RBC % 0 INR (Anticoag Therapy) 0.90 (0.77-1.02) APTT 27.9 (26.0-36.3) seconds Sodium 131 L (135-145) mmol/L Potassium 5.2 H (3.5-5.0) mmol/L Chloride 91 L (101-111) mmol/L Carbon Dioxide 25 (22-32) mmol/L Anion Gap 15 H (2-11) mmol/L BUN 93 H (6-24) mg/dL Creatinine 14.78 H (0.67-1.17) mg/dL Est GFR ( Amer) 4.9 (>60) Est GFR (Non-Af Amer) 3.8 (>60) BUN/Creatinine Ratio 6.3 L (8-20) Glucose 93 (70-100) mg/dL Calcium 8.8 (8.6-10.3) mg/dL Total Bilirubin 0.30 (0.2-1.0) mg/dL AST 5 L (13-39) U/L ALT 7 (7-52) U/L Alkaline Phosphatase 33 L (34-104) U/L C-Reactive Protein 162.05 H (< 5.00) mg/L Total Protein 6.2 L (6.4-8.9) g/dL Albumin 3.2 (3.2-5.2) g/dL Globulin 3.0 (2-4) g/dL Albumin/Globulin Ratio 1.1 (1-3) Result Diagrams: 10/16/17 17:25 10/16/17 17:25 Lab Statement: Any lab studies that have been ordered have been reviewed, and results considered in the medical decision making process. - Ultrasound No standard instances Ultrasound Interpretation: Positive (See Comments) - 17:29 Lower Extremity US: 1. NO RIGHT LOWER EXTREMITY DEEP VEIN THROMBOSIS. 2. NO LEFT LOWER EXTREMITY DEEP VEIN THROMBOSIS. 3. PERIPHERAL ARTERIAL CALCIFICATION WITH SMALL AMOUNT OF EDEMA ALONG THE PROXIMAL FEMORAL ARTERIES BILATERALLY. ED physician reviewed radiology report. Ultrasound Interpretation Completed By: Radiologist Complex Multi-Symp Course/Dx Course Of Treatment: discussed results with the patient. f/u with dr santos tomorrow. return to ed if worse. - Diagnoses Provider Diagnoses: Bilateral leg pain Discharge - Sign-Out/Discharge Documenting (check all that apply): Discharge/Admit/Transfer - Discharge Plan Condition: Stable Disposition: HOME Prescriptions: traMADol TAB* [Ultram*] 100 mg PO Q6HR PRN #30 tab MDD 8 PRN Reason: Pain Patient Education Materials: Leg Pain (ED) Referrals: Mirza Valentine DO [Primary Care Provider] - Charanjit Santos MD [Medical Doctor] - Additional Instructions: FOLLOW UP WITH DR SANTOS TOMORROW. RETURN TO THE EMERGENCY DEPARTMENT FOR ANY WORSENING OF YOUR CONDITION OR QUESTIONS OR CONCERNS. - Billing Disposition and Condition Condition: STABLE Disposition: Home The documentation as recorded by the Beverly mcmillan Jade accurately reflects the service I personally performed and the decisions made by me, Shane Aranda MD.
[2017-10-16 19:47] VITALS: BP 129/82
== END 2017-10-16 19:45 | disposition home or self-care (01) ==
LOC: ED 15:33
DX: M79.662 Pain in left lower leg (principal); M79.661 Pain in right lower leg; I73.9 Peripheral vascular disease, unspecified; I12.0 Hypertensive chronic kidney disease with stage 5 chronic kidney disease or end stage renal disease; N18.6 End stage renal disease; Z99.2 Dependence on renal dialysis; M32.14 Glomerular disease in systemic lupus erythematosus; Z87.891 Personal history of nicotine dependence
CPT/HCPCS: 36415; 80053; 85025; 85610; 85730; 86140; 86618; 93970; 99283; A9270-GY

== ENCOUNTER 2017-10-19 06:13 | Inpatient (IN) | payer MEDICARE, MEDICAID ==
[2017-10-19] MEDS ORDERED: Morphine VIAL* 4 MG/ML VIAL (1 ml vial) IV ONE (06:34)
[2017-10-19] MEDS ORDERED: NS 0.9% 500 ML* 500 ML IV ONE ×2 (06:43→07:28)
[2017-10-19] MEDS ORDERED: Acetaminophen TAB* 325 MG PO ONE (06:44)
[2017-10-19] MEDS ORDERED: Piperacillin/Tazobac ADVAN(*) 3.375 GM in NS 0.9% 100 ML* 100 ML IVPB ONE (06:44)
[2017-10-19] MEDS ORDERED: Vancomycin(*) 1,000 MG in NS 0.9% 250 ML* 250 ML IVPB ONE ×2 (06:44→08:00)
[2017-10-19 06:46] LABS: ABS Basophils 0 10^3/ul (0-0.2); ABS Eosinophils 0 10^3/ul (0-0.6); ABS Lymphocytes 0.5 10^3/ul (1.0-4.8); ABS Monocytes 0.3 10^3/ul (0-0.8); ABS Neutrophils 3.5 10^3/ul (1.5-7.7); ABS Nucleated RBC 0 10^3/ul; Eosinophil % 0.5 % (0-6); Hematocrit 24 % (42-52); Hemoglobin 8.3 g/dl (14.0-18.0); Lymphocyte % 11.8 % (25-47); Mean Corpuscular HGB Conc 34 g/dl (31-36); Mean Corpuscular Hemoglobin 34 pg (27-31); Mean Corpuscular Volume 98 fL (80-94); Mean Platelet Volume 9.2 um3 (7.4-10.4); Nucleated Red Blood Cells % 0.1; Platelet Count 337 10^3/ul (150-450); Red Blood Count 2.48 10^6/ul (4.00-5.40); Red Cell Distribution Width 14 % (10.5-15); White Blood Count 4.4 10^3/ul (3.5-10.8)
[2017-10-19] MEDS ORDERED: Levofloxacin 750 MG IVPREMIX(* 750 MG/150 ML BAG IVPB ONE (06:46)
[2017-10-19 06:54] LABS: INR 0.97 (0.77-1.02)
[2017-10-19] MEDS ORDERED: Vancomycin(*) 1,000 MG VIAL IVPB SCH (07:00)
[2017-10-19 07:03] LABS: EGFR Non-African American 3.5 (>60)
[2017-10-19] MEDS ORDERED: NS 0.9% 100 ML* 100 ML ONE (07:05)
--- NOTE | 2017-10-19 07:06 | ED ---
Sepsis HPI - HPI Summary HPI Summary: Apartment for fever, mild cough and leg pain. Patient has a history of lupus age renal disease and is currently on peritoneal dialysis. He is on CellCept. Patient states he has been having worsening pain to the bottom of his feet over the last several weeks. He also notes a worsening tremor over the last several months. He reports a mild cough. He otherwise denies chest pain, shortness of breath, abdominal pain, vomiting, diarrhea. Patient was seen in the ER several days ago for similar symptoms. Symptoms are severe in severity. No current modifying factors. Patient was noted to be the Neck and in the high 80s on room air at home. He was placed on 4 L nonrebreather and improved to the low 90s. Patient does require oxygen regularly. - History of Current Complaint Chief Complaint: EDFever Time Seen by Provider: 10/19/17 06:14 Stated Complaint: FEVER/TREMORS Hx Obtained From: Patient Pain Intensity: 8 - Additional Pertinent History Primary Care Physician: TYREE - Allergy/Home Medications Allergies/Adverse Reactions: Allergies Allergy/AdvReac Type Severity Reaction Status Date / Time hydralazine Allergy Intermediate Shortness Verified 08/06/17 15:05 of Breath prednisone Allergy Hallucinati Verified 08/06/17 15:05 ons Home Medications: Home Medications Folic Acid TAB* [Folvite TAB*] 5 mg PO DAILY 10/19/17 [History Confirmed ] Gabapentin CAP(*) [Neurontin 100 mg CAP(*)] 200 mg PO TID 10/19/17 [History Confirmed 10/19/17] Ropinirole TAB* [Requip TAB*] 0.5 mg PO BEDTIME 10/19/17 [History Confirmed ] PMH/Surg Hx/FS Hx/Imm Hx Previously Healthy: Yes Endocrine/Hematology History: Reports: Hx Systemic Lupus Erythematosus Denies: Hx Diabetes, Hx Thyroid Disease Cardiovascular History: Reports: Hx Hypertension Denies: Hx Peripheral Vascular Disease Comment Only: Other Cardiovascular Problems/Disorders - Hx LUPUS Respiratory History: Reports: Hx Asthma, Hx Seasonal Allergies, Other Respiratory Problems/Disorders - Hx pleurisy. History: Reports: Hx Dialysis - TTS, Other Problems/Disorders - Kidney cancer, unilateral nephrectomy Musculoskeletal History: Reports: Other Musculoskeletal History - Lupus: generlized pain Denies: Hx Arthritis, Hx Osteoporosis Sensory History: Reports: Hx Contacts or Glasses Denies: Hx Hearing Aid Opthamlomology History: Reports: Hx Contacts or Glasses Neurological History: Reports: Other Neuro Impairments/Disorders - Nerve pain - generalized, undiagnosed Denies: Hx Seizures, Hx Transient Ischemic Attacks (TIA) Psychiatric History: Reports: Hx Anxiety - Cancer History Cancer Type, Location and Year: Kidney cancer, September 2014 in [place]. Hx Chemotherapy: Yes - For lupus. - Surgical History Surgery Procedure, Year, and Place: Nephrectomy, splenectomy, Inguinal hernia repaired, multiple fistula placements. Hx Anesthesia Reactions: No Infectious Disease History: No Infectious Disease History: Reports: Hx of Known/Suspected MRSA Denies: Traveled Outside the in Last 30 Days - Family History Known Family History: Positive: Hypertension, Diabetes - Social History Occupation: Unemployed Lives: Alone Alcohol Use: None Hx Substance Use: No Substance Use Type: Reports: None Hx Tobacco Use: Yes Smoking Status (MU): Former Smoker Type: Cigarettes Amount Used/How Often: 5-10 cigs per day for 15 years until quit Length of Time of Smoking/Using Tobacco: 15 years Have You Smoked in the Last Year: Yes Review of Systems Positive: Fever, Chills Eyes: Negative ENT: Negative Negative: Palpitations, Chest Pain Positive: Shortness Of Breath, Cough Gastrointestinal: Negative Negative: Abdominal Pain, Vomiting, Diarrhea, Nausea Genitourinary: Negative Positive: Arthralgia Skin: Negative Neurological: Negative All Other Systems Reviewed And Are Negative: Yes Physical Exam Triage Information Reviewed: Yes Vital Signs On Initial Exam: Initial Vitals Temp Pulse Resp BP Pulse Ox 102.9 F 127 20 140/82 88 10/19/17 06:15 10/19/17 06:15 10/19/17 06:15 10/19/17 06:15 10/19/17 06:15 Vital Signs Reviewed: Yes Appearance: Positive: Ill-Appearing - Patient lying in bed, ill appearing but nontoxic. Skin: Positive: Warm, Dry Head/Face: Positive: Normal Head/Face Inspection Eyes: Positive: Normal Neck: Positive: Supple, Nontender. Negative: Nuchal Rigidity Respiratory/Lung Sounds: Positive: Clear to Auscultation, Breath Sounds Present Cardiovascular: Positive: Tachycardia Abdomen Description: Positive: Nontender, Soft Musculoskeletal: Positive: Other - Petechial rash noted to the inner thighs. 5/ 5 strength in bilateral lower extremities. Legs are neurovascularly intact. Neurological: Positive: Normal, CN Intact II-III Psychiatric: Positive: Affect/Mood Appropriate Diagnostics - Vital Signs Vital Signs Temp Pulse Resp BP Pulse Ox 10/19/17 06:45 18 10/19/17 06:15 102.9 F 127 20 140/82 88 - Laboratory Lab Results: Lab Results 10/19/17 10/19/17 Range/Units 06:38 06:38 WBC 4.4 (3.5-10.8) 10^3/ul RBC 2.48 L (4.00-5.40) 10^6/ul Hgb 8.3 L (14.0-18.0) g/dl Hct 24 L (42-52) % MCV 98 H (80-94) fL MCH 34 H (27-31) pg MCHC 34 (31-36) g/dl RDW 14 (10.5-15) % Plt Count 337 (150-450) 10^3/ul MPV 9.2 (7.4-10.4) um3 Neut % (Auto) 79.8 (38-83) % Lymph % (Auto) 11.8 L (25-47) % [place] % (Auto) 6.8 (0-7) % Eos % (Auto) 0.5 (0-6) % Baso % (Auto) 1.1 (0-2) % Absolute Neuts (auto) 3.5 (1.5-7.7) 10^3/ul Absolute Lymphs (auto) 0.5 L (1.0-4.8) 10^3/ul Absolute Monos (auto) 0.3 (0-0.8) 10^3/ul Absolute Eos (auto) 0 (0-0.6) 10^3/ul Absolute Basos (auto) 0 (0-0.2) 10^3/ul Absolute Nucleated RBC 0 10^3/ul Nucleated RBC % 0.1 INR (Anticoag Therapy) 0.97 (0.77-1.02) APTT 28.5 (26.0-36.3) seconds Result Diagrams: 10/19/17 06:38 10/19/17 06:38 Lab Statement: Any lab studies that have been ordered have been reviewed, and results considered in the medical decision making process. Course/Dx - Course Course Of Treatment: Patient presenting for fever, leg pain and mild cough. He meets sepsis criteria with a fever 102.9F, tachycardic at 100 bpm, respirations 20, oxygenation saturation on room air 88%, blood pressure stable 140/82. Sepsis protocol ordered. Tylenol and morphine ordered. Case discussed with Dr. Smith, Will start on vancomycin, Zosyn and Levaquin. Will give a 500 ECG bolus of normal saline, 30ml/kg was not ordered given concern for potential fluid overload given patient's renal failure. CRP is significantly elevated. The majority of blood work is sent patient's baseline other than elevated K of 5.5 and troponin of 0.27. EKG done at 0616 shows a sinus tachycardia of 120 bpm , normal axis, LVH, no STEMI. Chest x-ray shows a probable infiltrate on the left. I spoke with hospitalist, Dr. Mixon, who has accepted patient pt. for further treatment. Pt. has remained stable in ER. Results discussed with pt. and his family. - Differential Dx/Clinical Impression Provider Diagnosis: Sepsis, Pneumonia, Hypoxia Discharge - Sign-Out/Discharge Documenting (check all that apply): Discharge/Admit/Transfer - Discharge Plan Condition: Stable Disposition: ADMITTED TO [facility] - Billing Disposition and Condition Condition: STABLE Disposition: Admitted to [facility]
[2017-10-19] MEDS ORDERED: traZODone TAB* 50 MG TAB PO PRN (08:10)
[2017-10-19] MEDS ORDERED: NS 0.9% 1000 ML* 2,000 ML IV ONE (08:31)
--- NOTE | 2017-10-19 08:33 | RAD ---
INDICATION: Cough COMPARISON: September 01, 2017 TECHNIQUE: An AP portable view obtained at 0645 hours is submitted. FINDINGS: Bones/Soft Tissues: There are no acute bony findings. Cardiomediastinal: The cardiomediastinal silhouette is normal. Lungs: There is patchy interstitial and alveolar infiltrate in the left chest. The right hemithorax is clear. Pleura: There are no pleural effusions. Other: None IMPRESSION: Slight interstitial and alveolar infiltrates. Suggest follow-up
[2017-10-19] MEDS ORDERED: amLODIPine TAB* 5 MG PO SCH (09:00)
[2017-10-19] MEDS ORDERED: Sertraline* 25 MG TAB PO SCH (09:00)
[2017-10-19] MEDS ORDERED: Prazosin CAP* 1 MG PO SCH (09:00)
[2017-10-19] MEDS ORDERED: Carvedilol TAB* 3.125 MG PO SCH (09:00)
[2017-10-19] MEDS ORDERED: Azithromycin IV(*) 500 MG in NS 0.9% 250 ML* 250 ML IVPB SCH (09:00)
[2017-10-19] MEDS ORDERED: Gabapentin CAP(*) 100 MG PO SCH ×2 (09:00→21:00)
[2017-10-19] MEDS: traMADol TAB* 50 MG PO PRN ×2 (10:18→23:50)
[2017-10-19] MEDS: Folic Acid TAB* 1 MG PO SCH (10:19)
[2017-10-19] MEDS: Calcitriol CAP* 0.25 MCG PO SCH (10:21)
[2017-10-19] MEDS: Hydroxychloroquine TAB* 200 MG PO SCH ×2 (10:22→19:50)
[2017-10-19] MEDS: Heparin VIAL(*) 5000 UNITS/ML VIAL (FIVE THOUSAND) SUBCUT SCH ×2 (10:23→19:52)
[2017-10-19] MEDS: Patiromer POWDER* 8.4 GM PAK PO SCH (10:24)
[2017-10-19] MEDS: Omeprazole CAP* 20 MG PO SCH (10:57)
--- NOTE | 2017-10-19 11:16 | PN ---
Sepsis Event Evaluation Date of Evaluation: 10/19/17 Time of Evaluation: 11:15 Current Stage of Sepsis: Severe Sepsis Vital Signs - Last 12 Hours: Vital Signs - 12 hr Temp Pulse Resp BP Pulse Ox 10/19/17 10:18 20 10/19/17 09:02 100.6 F 102 18 98/67 94 Lactic Acid: 1.0 at 0638 - Cardiopulmonary Exam Capillary Refill: < or = to 5 seconds Respiratory: Symmetrical Chest Expansion and Respiratory Effort, Clear to Auscultation Cardiovascular: NL Sounds; No Murmurs; No JVD, No Edema, - - mildly tachycardi - Peripheral Pulse Exam Radial Pulses: Bilateral Normal - Skin Exam Skin Exam: Pale - Agustin Coma Scale Best Eye Response: 4 - Spontaneous Best Motor Response: 6 - Obeys Commands Best Verbal Response: 5 - Oriented Coma Scale Total: 15 Assess/Plan/Problems-Billing Assessment:
[2017-10-19] MEDS ORDERED: LORazepam INJ* 2 MG/ML 1 ML VIAL IV PUSH ONE (11:17)
--- NOTE | 2017-10-19 11:42 | HP ---
CC: Dr. Valentine; Dr. Flores; Dr. Arias Astudillo of [facility].* HISTORY AND PHYSICAL: DATE OF ADMISSION: 10/19/17. PRIMARY CARE PROVIDER: Dr. Valentine. MANAGER PURCHASING: Dr. Flores. CLINICAL TRANSPLANT COORDINATOR: Dr. Arias Astudillo of [place]. CHIEF COMPLAINT: Fever, shortness of breath, and twitching. HISTORY OF PRESENT ILLNESS: Mr. Puri is a 32-year-old male who has a history of lupus, lupus nephritis, and renal cell carcinoma status post left nephrectomy who is on peritoneal dialysis and presents to the emergency room with complaints of fever, cough, and twitching. The patient states approximately 2 days ago after his gabapentin dose was increased from 300 mg total daily dose to 600 mg total daily dose, he began to have twitching. He describes this as very violent twitching or jerking. It is uncontrollable for him. The patient also notes approximately 2 days ago he had a low grade temperature of 100.3. This persisted to the next day. Early in the morning of admission, the patient awaken from sleep with chills and feeling very cold and legs could not get warm. He then bundled up with several blankets. He then subsequently woke up a little bit later coughing, feeling hot, feeling very dizzy. He did not feel like he could get out of bed as he was concerned he would fall. When he was coughing, he had started bringing up some sputum. He did not spit it out as again he do not want to get out of bed and therefore just swallowed it back down. He denies any recent sick contacts. He has been doing his dialysis routinely. He takes his medications as prescribed. PAST MEDICAL HISTORY: 1. Lupus. 2. History of lupus pericarditis. 3. History of lupus nephritis. 4. End-stage renal disease. 5. 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 6. Hypertension. PAST SURGICAL HISTORY: 1. Left inguinal hernia repair. 2. Splenectomy. 3. Left upper extremity dialysis fistula creation. 4. Left nephrectomy secondary to renal cell carcinoma. MEDICATIONS: 1. Trazodone 50 mg p.o. q.h.s. p.r.n. insomnia. 2. Skbbtsff646 mg p.o. q. 6 hours p.r.n. pain. 3. Amlodipine 10 mg p.o. daily. 4. Renvela 2400 mg p.o. a.c. 5. Sertraline 75 mg p.o. daily. 6. Requip 0.5 mg p.o. q.h.s. 7. Compazine 10 mg p.o. q.8 hours p.r.n. nausea. 8. Prazosin 1 mg p.o. b.i.d. 9. Veltassa 8.4 g p.o. daily. 10. Omeprazole 20 mg p.o. daily. 11. Ritalin 10 mg p.o. daily p.r.n. restlessness. 12. Hydroxychloroquine 200 mg p.o. b.i.d. 13. Gabapentin 200 mg p.o. t.i.d. 14. Folic acid 5 mg p.o. daily. 15. Cetirizine 5 mg p.o. daily. 16. Coreg 3.125 mg p.o. twice daily. 17. Calcitriol 1 mcg p.o. daily. ALLERGIES: HYDROCHLOROTHIAZIDE and PREDNISONE. FAMILY HISTORY: Mom is living, she is 79. She has diabetes, hypothyroidism, vascular dementia, recent CVA and RI. Dad is living; he is 81. He has a history of diabetes, Graves disease, and TIAs as well as parkinsonism. SOCIAL HISTORY: The patient is a nonsmoker. He quit approximately 2 to 3 years ago. He does not drink alcohol. He does not use any recreational drugs. He volunteers for [employer]. He is not . He has no children. His sister, Marybeth, phone number [phone], will be his healthcare proxy. REVIEW OF SYSTEMS: A complete 11-system review of systems is obtained. Pertinent positives and negatives are as per HPI and in addition, the patient does complain of anxiety and depression related to being ill and concerned about mostly the twitching and not getting back to his baseline. Otherwise, the review of systems is negative. PHYSICAL EXAMINATION GENERAL: The patient is a well-developed, young male, lying flat in the bed, appearing to be in no acute distress with frequent myoclonic jerking of most notably the arms and also lower extremities. VITAL SIGNS: Blood pressure 140/82, pulse 127, respirations 20, temperature 102.9, O2 sat 88% on room air and 94% on 3 L. HEENT: Pupils are equal and round. Extraocular muscles are intact. Oropharynx is clear. Oral mucosa is dry. There is no submandibular, cervical, or supraclavicular adenopathy. Thyroid is not enlarged. No thyroid nodules noted. PULMONARY: Lungs are clear to auscultation bilaterally. CARDIAC: Normal S1 and S2. Heart rate is tachycardic, but regular. There are no murmur. There is no lower extremity edema. ABDOMEN: Bowel sounds present. Abdomen is soft, nontender, and nondistended. MUSCULOSKELETAL: There is no cyanosis or clubbing of the digits. There is full active range of motion of all four extremities. SKIN: Warm and dry. There is a small papular type rash noted surrounding the patient's knees and thighs, question of possible folliculitis. NEURO: Cranial nerves II through XII are grossly intact. Sensation is intact to light touch throughout. Strength is 5/5 and symmetrical in both upper and lower extremities bilaterally. Again, the patient does have significant myoclonic jerking. PSYCH: The patient is alert. He is oriented to x3. Affect appears appropriate. LABORATORY DATA: WBC 4.4, hemoglobin 8.3, hematocrit 24, and platelets 337. INR 0.97. Sodium 129, potassium pending, chloride 89, CO2 of 25, anion gap pending, BUN 75, creatinine 15.95, glucose 160, lactic acid 1.0, calcium 9.1, bilirubin 0.3, AST 6, ALT 8, alk phos 45, troponin 0.27, CRP 256.37, albumin 3.2. Chest x-ray to my interpretation appears to have a moderate sized left lower lobe infiltrate. EKG reveals sinus tachycardia with ST depressions in the lateral leads. ASSESSMENT AND PLAN: Mr. Puri is a 32-year-old male with a history of lupus, end- stage renal disease secondary to lupus and hypertension who presents to the emergency room with complaints of fever, cough, and twitching. He was found to be likely septic secondary to a left lower lobe pneumonia. 1. Sepsis secondary to left lower lobe pneumonia. He is severely septic based on sepsis 2 criteria as he is febrile, tachycardic, and has acute hypoxic respiratory failure as indicated by low O2 saturation on room air. Time of identification of sepsis was 10/14/17 when he presented to the emergency room. The patient, despite having end-stage renal disease, will receive the 30 mL/kg bolus to treat severe sepsis. The patient was then continue on normal saline at 75 mL/hour. The patient will have reevaluation of his vascular status and hemodynamic state within 3 hours post fluid bolus. In terms of treating the possible pneumonia, the patient has already received vancomycin, Zosyn, and Levaquin in the emergency room. Given his end-stage renal disease, he will continue on vancomycin. I will change that to cefepime and azithromycin. Procalcitonin will be added on to the emergency room labs. A sputum culture has been ordered as has urine for legionella and Strep pneumoniae antigen. An ID consultation has been requested. 2. Acute hypoxic respiratory failure. The patient typically does not require any supplemental oxygen. Upon EMS presentation to the patient's home, he reported had an O2 sat in the 80s. On presentation to the emergency room, his O2 sat was 88% on room air. With 3 liters of oxygen, his O2 saturation is now in the mid 90s. The patient's hypoxic respiratory failure will be monitored with the treatment of his sepsis and pneumonia. 3. Elevated troponin. The patient is also showing signs of end-organ dysfunction with an elevated troponin of 0.27. This again is likely secondary to sepsis and his tachycardia. This will be rechecked in approximately 3 hours after his initial lab draw with a followup EKG as there are some ST segment depressions in the lateral leads. Once his heart rate has normalized, I would like to see the ST segments normalize as well. For now, I will not initiate heparin drip. 4. End-stage renal disease. The patient will continue with peritoneal dialysis as prescribed. I will notify Dr. Flores that the patient has been admitted to the hospital. 5. Hypertension. The patient's blood pressure at this point is stable. He is not showing any signs of hypotension. This will be monitored with the fluid boluses. He will also continue on his usual home antihypertensive regimen. If he does begin to show signs of hypotension, this will be modified. 6. Anemia. The patient is chronically anemic; however, his hemoglobin currently is lower than his baseline which was ranging from 9.4 to 11.6 over the last two months. This will need to be monitored very closely. I suspect his chronic anemia is related to his history of lupus and end-stage renal disease. 7. DVT prophylaxis. According to the Adult Thrombosis Prophylaxis Risk Factor Assessment Guide, the patient has a total risk factor score of 1, making him low risk. Heparin 5000 units subcutaneous q.12 hours will be utilized as DVT prophylaxis. 8. Code status is full. TIME SPENT: Sixty five minutes were spent admitting this patient. [id number]/CPS #: [id number]
[2017-10-19] MEDS: NS 0.9% 1000 ML* 1,000 ML IV SCH (11:59)
[2017-10-19] MEDS: Sevelamer TAB* 800 MG PO SCH ×3 (13:00→17:18)
[2017-10-19] MEDS: Cefepime 1 GM in Dextrose(*) 1 GM/50 ML BAG IV SCH (13:09)
[2017-10-19] MEDS: Carvedilol TAB* 3.125 MG PO SCH (19:50)
[2017-10-19] MEDS: Acetaminophen TAB* 325 MG PO PRN (19:50)
[2017-10-19] MEDS: Prazosin CAP* 1 MG PO SCH (19:50)
[2017-10-19] MEDS: Ropinirole TAB* 0.5 MG TAB PO SCH (19:50)
--- NOTE | 2017-10-19 20:04 | CONS ---
NEUROLOGY CONSULTATION REPORT: DATE OF CONSULT: 10/19/17 LOCATION: The patient is on the 4th floor. REQUESTING PHYSICIAN: Nery Mixon DO. REASON FOR CONSULT: Myoclonus. HISTORY OF PRESENT ILLNESS: Jose Enrique Puri is a 32-year-old right-handed man with a history of lupus, complicated by lupus nephritis as well as a reported history of renal cell carcinoma, status post left nephrectomy, who came into the hospital early this morning because of fever, twitching and some shortness of breath. 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 Because of some jerking of his extremities that he has had over the couple of week, but worse over the last couple of days, he had a great deal of difficulty dialing 911. On his arrival here in the emergency department, he was found to be hypoxic with a fever and tachycardia and a chest x-ray showed some concern for a patchy infiltrate on the left. He was started on gabapentin 100 mg 3 times daily approximately [address] Flores for hand and foot pain. The foot pain is described as a pressure sensation at the base of his hands as well as the soles of his feet, which is worse when he puts pressure on them. This pain in his feet will sometimes radiate up into his inner thigh on the right side. When specifically questioned , he endorses some tingling as well as numbness of the feet. These symptoms have been going on for the past 6 months or so and he believes the gabapentin was started for this purpose. Soon after he started the gabapentin, he started to notice mild twitching in his finger, which would cause him to make some mistakes when he was texting. About 2 to 3 days ago, gabapentin was increased to 200 mg 3 times daily and he began to notice larger amplitude twitching of his arms and legs, which has become very bothersome and worrisome to him. He has been able to walk despite this twitching, but the pain is more limiting in his feet in terms of his level of activity. Because of his fever and concomitant medications as well as the level of distress that the myoclonus is causing him, I was asked to consult on the patient by Dr. Mixon. PAST MEDICAL HISTORY: 1. Lupus, diagnosed around the age of 8. 2. Lupus pericarditis. 3. 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 4. 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 5. Hypertension. PAST SURGICAL HISTORY: 1. Splenectomy. 2. Left upper extremity fistula creation. 3. Nephrectomy secondary to renal cell carcinoma. 4. Left inguinal hernia repair. HOME MEDICATIONS: 1. Trazodone 50 mg at bedtime as needed. 2. Tramadol 100 mg q.6 hours p.r.n. 3. Amlodipine 10 mg daily. 4. Sevelamer 2400 mg at meal time. 5. Sertraline 75 mg daily. 6. Ropinirole 0.5 mg at bedtime. 7. Compazine 10 mg q.8 p.r.n. 8. Prazosin 1 mg b.i.d. 9. Veltassa 8.4 g daily. 10. Omeprazole 20 mg daily. 11. Ritalin 10 mg daily p.r.n. 12. Hydroxychloroquine 200 mg b.i.d. 13. Gabapentin 200 mg t.i.d. 14. Folic acid 5 mg daily. 15. Cetirizine 5 mg daily. 16. Carvedilol 3.125 mg twice daily. 17. Calcitriol 1 mcg daily. ALLERGIES: HYDRALAZINE causes shortness of breath and PREDNISONE has caused hallucinations. FAMILY HISTORY: He reports that his father has a history of Parkinson's disease. There is a history of diabetes as well as autoimmune disorders in the family. SOCIAL HISTORY: He lived in [place], [place] until the last year and a half or so. He quit smoking about 2 to 3 years ago. He does not drink alcohol and does not use recreational drugs. He lives alone in [facility]. He moved to this area to be closer to family. REVIEW OF SYSTEMS: He denies any chest pain and currently denies any shortness of breath. He was feeling quite sleepy at the time of my evaluation and described having some "fever dreams" where he would be drifting off to sleep and thinking that he was having a conversation with someone and then realized that no one was in the room. He reports that this has happened to him in the past. Otherwise, as per the HPI. PHYSICAL EXAM: Vital Signs: Temperature was last measured at approximately 98.7, at the time I saw the patient with a T-max of 102.9 when he was in the emergency room at 06:15 this morning. Blood pressure was 108/84, heart rate 103 , oxygen saturation 96% on 3 liters. On general examination, he was resting quietly in his bed, in no acute distress when I initially entered the room. He woke easily to voice. Prior to my entering the room, I noticed a few low amplitude myoclonic jerks of his feet as well as his arms. However, when he wakes up, he has irregular jerking in his upper extremities greater than his lower extremities as well as in his abdomen. It is of higher amplitude than when he was initially observed resting. This is somewhat distractible in that when he is engaged in conversation and being asked to perform certain elements of the physical exam, they seem to attenuate. His heart was tachycardic with no obvious murmurs. His lung sounds seemed decreased in the right base, otherwise normal. He had some small macular erythematous lesions on his lower extremities, near his knees. There is no lower extremity edema. On neurologic exam, he would intermittently drift off to sleep during our encounter, but could wake easily to voice. He had received lorazepam shortly before my evaluation. He was able to register 3/3 objects and recall all 3 after a period of distraction. He was fully oriented. His speech was fluent without dysarthria or aphasia. On cranial nerve examination, pupils were equal and round at approximately 3 mm, but appeared to be minimally active. His versions were full without nystagmus or complaint of diplopia. Visual diaz were full to confrontation. Facial sensation and musculature was full and symmetric. Hearing was intact to finger rub. The palate elevates symmetrically and the tongue is midline. On motor examination, he had full strength in the upper and lower extremities. He had some myoclonus as mentioned above. There was no pronator drift. He had a mild postural tremor bilaterally as well with his arms outstretched. On sensory testing, temperature was essentially equal in the upper and lower extremities. Vibratory sensation was intact in the great toes to about 16 to 18 seconds bilaterally with no significant difference at the ankle. His proprioception was intact. His reflexes were 2+ throughout including the ankles with downgoing toes. I noted that striking the bottom of his foot with the reflex hammer elicited his pain. [id number] was intact without ataxia, but there was some intention tremor. I did not ambulate him. DIAGNOSTIC STUDIES/LAB DATA: His CBC was notable for a low hematocrit of 24, hemoglobin 8.3, white count of 4.4, platelets of 337. His coagulation studies were normal. Chemistry panel notable for a low sodium of 129, high potassium of 5.5, low chloride of 89. Positive anion gap of 15. BUN of 75, creatinine of 15.95, glucose of 116. His troponin was elevated on admission to 0.27 and bumped slightly at 10 a.m. to 0.3. His CRP is elevated at 256.37 and total protein is low at 6. His lactate was 1 and liver functions were normal. Procalcitonin was 0.2. His chest x-ray showed patchy infiltrate in the left lung. IMPRESSION AND PLAN: Jose Enrique Puri is a 32-year-old man with a history of lupus, complicated by lupus nephritis as well as hypertension, who is admitted to the hospital with sepsis, thought to be secondary to pneumonia, but who has also been experiencing increase in myoclonic jerks over the past couple of days. The onset of these abnormal movements seems to be temporally associated with starting gabapentin and worsening certainly is associated with increasing the dose. I think most likely his abnormal movements are related to gabapentin side effects and recommended discontinuing the medication. There was some concern about possible serotonin syndrome because of his concomitant home medications including sertraline and tramadol as well as his fever on admission , but his mental status is clear, I do not detect any muscle rigidity and he is not hyperreflexic, so I do not think that he has serotonin syndrome. Other potential factors, which could be contributing to his myoclonus, include his end -stage renal disease, though I note that he says he has never experienced this before, despite his renal disease. Separately, he mentions longer standing issues with hand and foot pain. His exam clinically is not overtly suggestive of neuropathy, but certainly he is at risk for this with his other medical problems and he could get an EMG/nerve conduction as an outpatient. He indicates he has a referral to Neurology in [place], but has not set up an appointment there. Given his description of pain being more of a pressure sensation with some tenderness in his Achilles with palpation as well as in the base of his foot, I wonder if this is more musculoskeletal in nature, but nerve conduction would certainly make sense in him. Thank you for this consultation. [id number]/[facility] #: [id number] DARRELL
[2017-10-20] MEDS ORDERED: LORazepam INJ* 2 MG/ML 1 ML VIAL IV PUSH ONE (00:01)
[2017-10-20] MEDS ORDERED: LORazepam INJ* 2 MG/ML 1 ML VIAL ONE (00:11)
[2017-10-20] MEDS: NS 0.9% 1000 ML* 1,000 ML IV SCH (03:36)
[2017-10-20] MEDS: Patiromer POWDER* 8.4 GM PAK PO SCH (05:23)
[2017-10-20 06:49] LABS: ABS Basophils 0.1 10^3/ul (0-0.2); ABS Eosinophils 0 10^3/ul (0-0.6); ABS Lymphocytes 1.5 10^3/ul (1.0-4.8); ABS Monocytes 1.4 10^3/ul (0-0.8); ABS Neutrophils 4.2 10^3/ul (1.5-7.7); ABS Nucleated RBC 0 10^3/ul; Eosinophil % 0 % (0-6); Hematocrit 22 % (42-52); Hemoglobin 7.4 g/dl (14.0-18.0); Lymphocyte % 20.4 % (25-47); Mean Corpuscular HGB Conc 33 g/dl (31-36); Mean Corpuscular Hemoglobin 33 pg (27-31); Mean Corpuscular Volume 99 fL (80-94); Mean Platelet Volume 9.2 um3 (7.4-10.4); Nucleated Red Blood Cells % 0.1; Platelet Count 317 10^3/ul (150-450); Red Blood Count 2.22 10^6/ul (4.00-5.40); Red Cell Distribution Width 14 % (10.5-15); White Blood Count 7.2 10^3/ul (3.5-10.8)
[2017-10-20 07:00] LABS: EGFR Non-African American 3.8 (>60)
[2017-10-20] MEDS: Azithromycin IV(*) 500 MG in NS 0.9% 250 ML* 250 ML IVPB SCH (07:28)
[2017-10-20] MEDS: Omeprazole CAP* 20 MG PO SCH (07:28)
[2017-10-20] MEDS: Sevelamer TAB* 800 MG PO SCH ×3 (07:28→17:30)
[2017-10-20] MEDS ORDERED: Vancomycin(*) 750 MG in NS 0.9% 250 ML* 250 ML IVPB SCH (09:00)
[2017-10-20] MEDS: oxyCODONE TAB* 5 MG TAB PO PRN ×3 (09:25→17:30)
[2017-10-20] MEDS: Carvedilol TAB* 3.125 MG PO SCH ×2 (09:26→20:34)
[2017-10-20] MEDS: Calcitriol CAP* 0.25 MCG PO SCH (09:26)
[2017-10-20] MEDS: amLODIPine TAB* 5 MG PO SCH (09:26)
[2017-10-20] MEDS: Prazosin CAP* 1 MG PO SCH ×2 (09:26→20:34)
[2017-10-20] MEDS: Folic Acid TAB* 1 MG PO SCH (09:26)
[2017-10-20] MEDS: Mupirocin 2% OINT* TUBE TOPICAL SCH (09:27)
[2017-10-20] MEDS: Hydroxychloroquine TAB* 200 MG PO SCH ×2 (09:27→20:34)
[2017-10-20] MEDS: Heparin VIAL(*) 5000 UNITS/ML VIAL (FIVE THOUSAND) SUBCUT SCH ×2 (09:32→20:35)
[2017-10-20] MEDS: Cefepime 1 GM in Dextrose(*) 1 GM/50 ML BAG IV SCH (13:24)
--- NOTE | 2017-10-20 14:23 | PN ---
Subjective Date of Service: 10/20/17 Interval History: C/O burning of toes and fingers, hard to walk due to the burning. Objective Active Medications: Acetaminophen (Tylenol Tab*) 650 mg PO Q6H PRN PRN Reason: PAIN Last Admin: 10/19/17 19:50 Dose: 650 mg Amlodipine Besylate (Norvasc Tab*) 10 mg PO DAILY [facility] Last Admin: 10/20/17 09:26 Dose: 10 mg Calcitriol (Rocaltrol Cap*) 1 mcg PO DAILY [facility] Last Admin: 10/20/17 09:26 Dose: 1 mcg Carvedilol (Coreg Tab*) 3.125 mg PO BID [facility] Last Admin: 10/20/17 09:26 Dose: 3.125 mg Folic Acid (Folvite Tab*) 5 mg PO DAILY [facility] Last Admin: 10/20/17 09:26 Dose: 5 mg Heparin Sodium (Porcine) (Heparin Vial(*)) 5,000 units SUBCUT Q12HR [facility] Last Admin: 10/20/17 09:32 Dose: Not Given Hydroxychloroquine Sulfate (Plaquenil Tab*) 200 mg PO BID [facility] Last Admin: 10/20/17 09:27 Dose: 200 mg Cefepime HCl (Maxipime 1 Gm In Dextrose Duplex (*)) 1 gm in 50 mls @ 100 mls/ hr IV Q24H [facility] Last Admin: 10/20/17 13:24 Dose: 100 mls/hr Sodium Chloride (Ns 0.9% 1000 Ml*) 1,000 mls @ 75 mls/hr IV PER RATE [facility] Last Admin: 10/20/17 03:36 Dose: 75 mls/hr Azithromycin 500 mg/ Sodium (Chloride) 250 mls @ 250 mls/hr IVPB Q24H [facility] Last Admin: 10/20/17 07:28 Dose: 250 mls/hr Mupirocin (Bactroban 2 % Oint*) 1 applic TOPICAL DAILY [facility] Last Admin: 10/20/17 09:27 Dose: 1 applic Omeprazole (Prilosec Cap*) 20 mg PO DAILY@0730 [facility] Last Admin: 10/20/17 07:28 Dose: 20 mg Oxycodone HCl (Roxycodone Tab*) 5 mg PO Q4H PRN PRN Reason: PAIN Last Admin: 10/20/17 13:23 Dose: 5 mg Patiromer (Patir) 8.4 gm PO DAILY@0600 [facility] Last Admin: 10/20/17 05:23 Dose: Not Given Pharmacy Consult (Vancomycin Per Pharmacy*) 1 note FOLLOW UP . PRN PRN Reason: PER PROTOCOL Prazosin HCl (Minipress Cap*) 1 mg PO BID [facility] Last Admin: 10/20/17 09:26 Dose: 1 mg Prochlorperazine (Compazine Tab*) 10 mg PO Q8H PRN PRN Reason: VOMITING Ropinirole HCl (Requip Tab*) 0.5 mg PO BEDTIME [facility] Last Admin: 10/19/17 19:50 Dose: 0.5 mg Sevelamer Carbonate (Renvela Tab*) 2,400 mg PO AC [facility] Last Admin: 10/20/17 11:52 Dose: 2,400 mg Tramadol HCl (Ultram*) 50 mg PO Q12H PRN PRN Reason: PAIN Last Admin: 10/19/17 23:50 Dose: 50 mg Trazodone HCl (Desyrel Tab*) 50 mg PO BEDTIME PRN PRN Reason: SLEEP Last Admin: 10/19/17 19:50 Dose: 50 mg Vital Signs - 8 hr 10/20/17 10/20/17 10/20/17 07:44 08:00 09:25 Temperature 100.1 F Pulse Rate 105 Respiratory 20 18 16 Rate Blood Pressure 120/62 (mmHg) O2 Sat by Pulse 95 93 Oximetry 10/20/17 10/20/17 11:48 13:23 Temperature Pulse Rate Respiratory 16 16 Rate Blood Pressure (mmHg) O2 Sat by Pulse Oximetry Oxygen Devices in Use Now: None Appearance: Alert, supine in bed. In fair spirits. Eyes: No Scleral Icterus Respiratory: Symmetrical Chest Expansion and Respiratory Effort, Clear to Auscultation, Clear to Percussion Cardiovascular: RRR, No Edema, - - 1/6 systolic murmur LSB, ? rub. Neurological: Alert and Oriented x 3, NL Sensation, - - Very mild myoclonic jerks in R arm felt. Result Diagrams: 10/20/17 06:06 10/20/17 06:06 Additional Lab and Data: Lab Results 10/19/17 10/19/17 Range/Units 06:38 06:38 WBC 4.4 (3.5-10.8) 10^3/ul RBC 2.48 L (4.00-5.40) 10^6/ul Hgb 8.3 L (14.0-18.0) g/dl Hct 24 L (42-52) % MCV 98 H (80-94) fL MCH 34 H (27-31) pg MCHC 34 (31-36) g/dl RDW 14 (10.5-15) % Plt Count 337 (150-450) 10^3/ul MPV 9.2 (7.4-10.4) um3 Neut % (Auto) 79.8 (38-83) % Lymph % (Auto) 11.8 L (25-47) % [place] % (Auto) 6.8 (0-7) % Eos % (Auto) 0.5 (0-6) % Baso % (Auto) 1.1 (0-2) % Absolute Neuts (auto) 3.5 (1.5-7.7) 10^3/ul Absolute Lymphs (auto) 0.5 L (1.0-4.8) 10^3/ul Absolute Monos (auto) 0.3 (0-0.8) 10^3/ul Absolute Eos (auto) 0 (0-0.6) 10^3/ul Absolute Basos (auto) 0 (0-0.2) 10^3/ul Absolute Nucleated RBC 0 10^3/ul Nucleated RBC % 0.1 INR (Anticoag Therapy) 0.97 (0.77-1.02) APTT 28.5 (26.0-36.3) seconds Microbiology and Other Data: Microbiology 10/19/17 06:50 Aerobic Blood Culture - Preliminary Blood Venous No Growth Day 1 Anaerobic Blood Culture - Preliminary No Growth Day 1 10/19/17 06:53 Aerobic Blood Culture - Preliminary Blood Venous No Growth Day 1 Anaerobic Blood Culture - Preliminary No Growth Day 1 Assess/Plan/Problems-Billing Assessment: - Patient Problems (1) ESRD (end stage renal disease) on dialysis Current Visit: No Status: Acute Code(s): N18.6 - END STAGE RENAL DISEASE; Z99.2 - DEPENDENCE ON RENAL DIALYSIS SNOMED Code(s): 704690942 Comment: Continue PD. (2) SLE (systemic lupus erythematosus) Current Visit: No Status: Acute Code(s): M32.9 - SYSTEMIC LUPUS ERYTHEMATOSUS, UNSPECIFIED SNOMED Code(s): 95646700 Comment: Continue plaquenil. (3) HTN (hypertension) Current Visit: No Status: Acute Code(s): I10 - ESSENTIAL (PRIMARY) HYPERTENSION SNOMED Code(s): 27949692 Comment: BP is under good control. Continue amlodipine, carvedilol, prazosin. (4) Sepsis Current Visit: Yes Status: Acute Comment: Improved. Continue cefepime, vanco, azith. T 100.1 10/20 7:44 AM. (5) Myoclonus Current Visit: Yes Status: Acute Code(s): G25.3 - MYOCLONUS SNOMED Code(s) : 37840081 Comment: Much improved but not gone after stopping gabapentin. (6) Peripheral neuropathy Current Visit: Yes Status: Acute Code(s): G62.9 - POLYNEUROPATHY, UNSPECIFIED SNOMED Code(s): 333499440 Comment: Add oxycontin SR 10 mg bid. Discussed with Dr. Sawyer. Inpatient nerve conduction study if personnel time available
[2017-10-20] MEDS: traMADol TAB* 50 MG PO PRN (14:46)
[2017-10-20] MEDS: oxyCODONE SR TAB(*) 10 MG TAB.SR PO SCH ×2 (14:46→20:34)
--- NOTE | 2017-10-20 16:30 | CONS ---
CONSULTATION REPORT: DATE OF CONSULT: 10/20/17 REQUESTING PHYSICIAN: Dr. Mixon. CONSULTING SERVICE: Infectious Disease. REASON FOR CONSULT: Fever. IMPRESSION: 1. Fever for about 36 hours with a cough which is not productive. Chest x-ray shows a left-sided infiltrate most consistent with pneumonia, community acquired versus given that he is a hemodialysis patient, healthcare associated. Question of serotonin syndrome was raised as a cause for fever because of some of his combination medications. Neurology thinks that is less likely. This time of the year, tick-borne infections are a consideration. He does not have the leukopenia, thrombocytopenia or transaminitis I would except with anaplasmosis. He has no EM rash to suggest Lyme. He makes a scant amount of urine and has not had dysuria. 2. Systemic lupus erythematosus, on Plaquenil. 3. Lupus nephritis, end-stage renal disease. 4. Status post left nephrectomy for renal cell carcinoma. 5. Two to three months of limb pain and rash. RECOMMENDATIONS: 1. Agree with vancomycin goal trough 10 to 15 and cefepime 1 g a day dose for end- stage renal disease/hemodialysis as well as azithromycin will change to a pill. Plan on 5 to 7-day course. 2. He has had ongoing neurologic evaluation for his pain. I discussed a biopsy with Dr. Storey for the rash. HISTORY OF PRESENT ILLNESS: This is a 32-year-old male with end-stage renal disease on hemodialysis via left upper extremity fistula, admitted with fever and myoclonus. The fever has been present for a day and a half, myoclonus for about a day but it was severe yesterday and led him to come to the hospital. He had had some medication changes recently and that was thought to be contributing to myoclonus. After they were stopped, they are a little bit improved today, but still present in both arms but not in the legs. He has had a nonproductive cough with the fever, some chills that he has had for a day and a half, fever 39.4 overnight. Blood and sputum cultures are pending. Chest x- ray showed a left basilar infiltrate. He does not feel short of breath or have chest pain. He has had 2 to 3 months of bilateral arm and leg pain, has been treated with Neurontin. He has had a rash in a similar distribution. 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 PAST MEDICAL HISTORY: 1. End-stage renal disease, on hemodialysis. 2. Lupus complicated by nephritis, pericarditis and third-degree heart block. 3. Hypertension. 4. Status post left inguinal hernia repair. 5. Status post splenectomy. 6. Left upper extremity fistula. 7. Status post left nephrectomy for renal cell cancer. MEDICATIONS: 1. Tylenol. 2. Amlodipine. 3. Coreg. 4. Calcitriol. 5. Heparin subcutaneous injection. 6. Plaquenil. 7. Cefepime 1 g daily. 8. Oxycodone as needed. 9. Omeprazole. 10. Patiromer. 11. Sevelamer. 12. Trazodone. 13. Azithromycin 500 mg daily. 14. Vancomycin 750 mg daily. ALLERGIES: HYDROCHLOROTHIAZIDE and PREDNISONE. FAMILY HISTORY: Mom alive at 79 with diabetes and stroke. Father alive at 81 with diabetes and stroke. SOCIAL HISTORY: He lives in [place] by himself. He has 2 guinea pigs. Has not been outdoors much in the last couple of months. No travel other than to [place]. REVIEW OF SYSTEMS: All negative to 14-point review of systems except as noted above. PHYSICAL EXAM: Vital Signs: Temperature 37.8, heart rate 100, respiratory rate 20, blood pressure 120/62, oxygen saturation 95% on room air. In general, he is awake and not in distress. Neurologic: He is oriented x3, follows all commands. Moves all of his extremities. Bilateral upper extremity myoclonic jerking is present. Neck: Supple without mass. HEENT: There is mild facial edema. Oropharynx is without lesions. Heart: Regular rate and rhythm without murmurs, rubs or gallops. Lungs: Decreased breath sounds at the left base without wheeze, rale or egophony. Abdomen: Soft, nontender, nondistended. There are bowel sounds present. Skin: On the ventral surface of both arms and legs, there are scattered erythematous to brown macules which are nonblanching. Musculoskeletal: There is no spine tenderness to palpation. There is a left extremity fistula with palpable thrill. DIAGNOSTIC STUDIES/LAB DATA: White blood cell count 7, hemoglobin 7, MCV 99, platelets [id number]. Creatinine 14. Sodium 134, BUN 64. Please see impression and recommendations outlined above, which I have discussed with Dr. Storey. Thank you for asking me to see Mr. Puri in consultation. [id number]/[facility] #: [id number] DARRELL
[2017-10-20] MEDS: Ropinirole TAB* 0.5 MG TAB PO SCH (20:34)
[2017-10-21] MEDS: NS 0.9% 1000 ML* 1,000 ML IV SCH (00:07)
[2017-10-21] MEDS: oxyCODONE TAB* 5 MG TAB PO PRN ×4 (01:13→17:34)
[2017-10-21] MEDS: Patiromer POWDER* 8.4 GM PAK PO SCH (05:17)
[2017-10-21] MEDS: Calcitriol CAP* 0.25 MCG PO SCH (08:39)
[2017-10-21] MEDS: Sevelamer TAB* 800 MG PO SCH ×3 (08:40→16:38)
[2017-10-21] MEDS: Folic Acid TAB* 1 MG PO SCH (08:40)
[2017-10-21] MEDS: Hydroxychloroquine TAB* 200 MG PO SCH ×2 (08:40→19:46)
[2017-10-21] MEDS: oxyCODONE SR TAB(*) 10 MG TAB.SR PO SCH ×2 (08:40→19:46)
[2017-10-21] MEDS: amLODIPine TAB* 5 MG PO SCH (08:41)
[2017-10-21] MEDS: Prazosin CAP* 1 MG PO SCH ×2 (08:41→19:46)
[2017-10-21] MEDS: Carvedilol TAB* 3.125 MG PO SCH ×2 (08:41→19:46)
[2017-10-21] MEDS: Omeprazole CAP* 20 MG PO SCH (08:41)
[2017-10-21] MEDS: Azithromycin IV(*) 500 MG in NS 0.9% 250 ML* 250 ML IVPB SCH (08:41)
[2017-10-21] MEDS: Heparin VIAL(*) 5000 UNITS/ML VIAL (FIVE THOUSAND) SUBCUT SCH ×2 (08:52→19:46)
[2017-10-21] MEDS: Mupirocin 2% OINT* TUBE TOPICAL SCH (08:52)
--- NOTE | 2017-10-21 09:48 | PN ---
Progress Note - Progress Note Date of Service: 10/21/17 SOAP: Subjective: CC: pneumonia HPI: 32 year old man with ESRD/PD, with fever, cough, hypoxemia, fever and cough improving. Had myoclonus which is resolved. Ongoing longstanding bilateral lower extremity pain which includes bilateral foot pain with weight bearing. Low back pain, stretching helps. No rash or diarrhea. Objective: Vital Signs Temp 38.1 C 10/21/17 07:45 Pulse 98 10/21/17 07:45 Resp 16 10/21/17 08:40 BP 132/60 10/21/17 07:45 Pulse Ox 91 10/21/17 07:45 Intake & Output 10/20/17 10/21/17 10/21/17 18:59 06:59 18:59 Intake Total 1440 2487 Balance 1440 2487 Weight 163 lb 6.4 oz Intake: IV Fluids 2487 NS (0.9%) 2487 IVPB 550 ABX - AZITHROMYCIN 250 ABX - CEFEPIME 50 ABX - VANCOMYCIN 250 Oral 890 0 Other: # Bowel Movements 1 0 # Voids 0 Gen:awake, no distress Neuro: strength 5/5 quad/ta/gastroc BL, toes upgoing, no LE clonus HEENT: no thrush Heart:RRR no murmur Lungs:CTA BL Abd:+BS NTND soft, PD catheter Skin: erythematous macules on arms MSK: no spine tenderness Assessment: 1. HCAP, improving, covering for gram negative and MRSA 2. ESRD/PD ?degree of uremia 3. myoclonus, resolved Plan: 1. vanco goal tr 10-15, cefepime 1 gm daily, azithro 500 mg po daily all day 3/ 2. pain consult Discussed with Dr Storey
[2017-10-21] MEDS ORDERED: Epoetin Alfa* 10,000 UNITS/ML VIAL SUBCUT ONE (10:00)
[2017-10-21] MEDS ORDERED: oxyCODONE TAB* 5 MG TAB PO ONE (11:00)
[2017-10-21] MEDS ORDERED: Cefepime 1 GM in Dextrose(*) 1 GM/50 ML BAG IV SCH (12:00)
--- NOTE | 2017-10-21 12:34 | PN ---
Subjective Date of Service: 10/21/17 Interval History: Pain in hands and feet somewhat better. He states he saw his manufactured buildings repairer in [place] about a week ago and was told his hand/foot pains are probably not due to SLE. Objective Active Medications: Acetaminophen (Tylenol Tab*) 650 mg PO Q6H PRN PRN Reason: PAIN Last Admin: 10/19/17 19:50 Dose: 650 mg Amlodipine Besylate (Norvasc Tab*) 10 mg PO DAILY [facility] Last Admin: 10/21/17 08:41 Dose: 10 mg Azithromycin (Zithromax Tab*) 500 mg PO DAILY [facility] Stop: 10/23/17 23:59 Calcitriol (Rocaltrol Cap*) 1 mcg PO DAILY [facility] Last Admin: 10/21/17 08:39 Dose: 1 mcg Carvedilol (Coreg Tab*) 3.125 mg PO BID [facility] Last Admin: 10/21/17 08:41 Dose: 3.125 mg Folic Acid (Folvite Tab*) 5 mg PO DAILY [facility] Last Admin: 10/21/17 08:40 Dose: 5 mg Heparin Sodium (Porcine) (Heparin Vial(*)) 5,000 units SUBCUT Q12HR [facility] Last Admin: 10/21/17 08:52 Dose: Not Given Hydroxychloroquine Sulfate (Plaquenil Tab*) 200 mg PO BID [facility] Last Admin: 10/21/17 08:40 Dose: 200 mg Cefepime HCl (Maxipime 1 Gm In Dextrose Duplex (*)) 1 gm in 50 mls @ 100 mls/ hr IV Q24H [facility] Last Admin: 10/20/17 13:24 Dose: 100 mls/hr Sodium Chloride (Ns 0.9% 1000 Ml*) 1,000 mls @ 75 mls/hr IV PER RATE [facility] Last Admin: 10/21/17 00:07 Dose: 75 mls/hr Mupirocin (Bactroban 2 % Oint*) 1 applic TOPICAL DAILY [facility] Last Admin: 10/21/17 08:52 Dose: Not Given Omeprazole (Prilosec Cap*) 20 mg PO DAILY@0730 [facility] Last Admin: 10/21/17 08:41 Dose: 20 mg Oxycodone HCl (Roxycodone Tab*) 5 mg PO Q4H PRN PRN Reason: PAIN Last Admin: 10/21/17 08:40 Dose: 5 mg Oxycodone HCl (Oxycontin(*)) 10 mg PO Q12HR [facility] Last Admin: 10/21/17 08:40 Dose: 10 mg Patiromer (Patir) 8.4 gm PO DAILY@0600 [facility] Last Admin: 10/21/17 05:17 Dose: Not Given Pharmacy Consult (Vancomycin Per Pharmacy*) 1 note FOLLOW UP . PRN PRN Reason: PER PROTOCOL Prazosin HCl (Minipress Cap*) 1 mg PO BID [facility] Last Admin: 10/21/17 08:41 Dose: 1 mg Prochlorperazine (Compazine Tab*) 10 mg PO Q8H PRN PRN Reason: VOMITING Ropinirole HCl (Requip Tab*) 0.5 mg PO BEDTIME [facility] Last Admin: 10/20/17 20:34 Dose: 0.5 mg Sevelamer Carbonate (Renvela Tab*) 2,400 mg PO AC [facility] Last Admin: 10/21/17 11:12 Dose: 2,400 mg Tramadol HCl (Ultram*) 50 mg PO Q12H PRN PRN Reason: PAIN Last Admin: 10/20/17 14:46 Dose: 50 mg Trazodone HCl (Desyrel Tab*) 50 mg PO BEDTIME PRN PRN Reason: SLEEP Last Admin: 10/19/17 19:50 Dose: 50 mg Vital Signs - 8 hr 10/21/17 10/21/17 10/21/17 07:45 08:00 08:40 Temperature 100.6 F Pulse Rate 98 Respiratory 17 16 16 Rate Blood Pressure 132/60 (mmHg) O2 Sat by Pulse 91 92 Oximetry 10/21/17 10/21/17 10/21/17 10:56 11:11 11:12 Temperature Pulse Rate Respiratory 16 16 16 Rate Blood Pressure (mmHg) O2 Sat by Pulse Oximetry 10/21/17 11:37 Temperature 99.7 F Pulse Rate 98 Respiratory 15 Rate Blood Pressure 126/64 (mmHg) O2 Sat by Pulse 78 Oximetry Oxygen Devices in Use Now: None Appearance: Alert, partly up in bed. In good spirits. Looks comfortable. Eyes: No Scleral Icterus Neck: NL Appearance and Movements; NL JVP, No Thyroid Enlargement, Masses Respiratory: Symmetrical Chest Expansion and Respiratory Effort, Clear to Auscultation, Clear to Percussion Cardiovascular: NL Sounds; No Murmurs; No JVD, RRR, No Edema, - Extremities: No Edema, No Clubbing, Cyanosis, - Skin: No Rash or Ulcers, No Nodules or Sclerosis, - Neurological: Alert and Oriented x 3, NL Sensation Result Diagrams: 10/20/17 06:06 10/20/17 06:06 Additional Lab and Data: Lab Results 10/19/17 10/19/17 Range/Units 06:38 06:38 WBC 4.4 (3.5-10.8) 10^3/ul RBC 2.48 L (4.00-5.40) 10^6/ul Hgb 8.3 L (14.0-18.0) g/dl Hct 24 L (42-52) % MCV 98 H (80-94) fL MCH 34 H (27-31) pg MCHC 34 (31-36) g/dl RDW 14 (10.5-15) % Plt Count 337 (150-450) 10^3/ul MPV 9.2 (7.4-10.4) um3 Neut % (Auto) 79.8 (38-83) % Lymph % (Auto) 11.8 L (25-47) % [place] % (Auto) 6.8 (0-7) % Eos % (Auto) 0.5 (0-6) % Baso % (Auto) 1.1 (0-2) % Absolute Neuts (auto) 3.5 (1.5-7.7) 10^3/ul Absolute Lymphs (auto) 0.5 L (1.0-4.8) 10^3/ul Absolute Monos (auto) 0.3 (0-0.8) 10^3/ul Absolute Eos (auto) 0 (0-0.6) 10^3/ul Absolute Basos (auto) 0 (0-0.2) 10^3/ul Absolute Nucleated RBC 0 10^3/ul Nucleated RBC % 0.1 INR (Anticoag Therapy) 0.97 (0.77-1.02) APTT 28.5 (26.0-36.3) seconds Microbiology and Other Data: Microbiology 10/19/17 06:50 Aerobic Blood Culture - Preliminary Blood Venous No Growth Day 1 Anaerobic Blood Culture - Preliminary No Growth Day 1 10/19/17 06:53 Aerobic Blood Culture - Preliminary Blood Venous No Growth Day 1 Anaerobic Blood Culture - Preliminary No Growth Day 1 Assess/Plan/Problems-Billing Assessment: - Patient Problems (1) ESRD (end stage renal disease) on dialysis Current Visit: No Status: Acute Code(s): N18.6 - END STAGE RENAL DISEASE; Z99.2 - DEPENDENCE ON RENAL DIALYSIS SNOMED Code(s): 244437452 Comment: Continue PD. (2) SLE (systemic lupus erythematosus) Current Visit: No Status: Acute Code(s): M32.9 - SYSTEMIC LUPUS ERYTHEMATOSUS, UNSPECIFIED SNOMED Code(s): 63735749 Comment: Continue plaquenil. He states he saw his manufactured buildings repairer in [place] about a week ago and was told his hand/foot pains are probably not due to SLE. (3) HTN (hypertension) Current Visit: No Status: Acute Code(s): I10 - ESSENTIAL (PRIMARY) HYPERTENSION SNOMED Code(s): 64808272 Comment: BP is under good control. Continue amlodipine, carvedilol, prazosin. (4) Sepsis Current Visit: Yes Status: Acute Comment: Improved. Continue cefepime, vanco, azith. T 100.1 10/20 7:44 AM, 100.6 227:45 AM. Alost no cough. (5) Myoclonus Current Visit: Yes Status: Acute Code(s): G25.3 - MYOCLONUS SNOMED Code(s) : 26130419 Comment: Much improved but not gone after stopping gabapentin. (6) Peripheral neuropathy Current Visit: Yes Status: Acute Code(s): G62.9 - POLYNEUROPATHY, UNSPECIFIED SNOMED Code(s): 171604321 Comment: Continue oxycontin SR 10 mg bid. Discussed with Dr. Sawyer. Inpatient nerve conduction study if personnel time available
[2017-10-21] MEDS ORDERED: Cefepime 1 GM in Dextrose(*) 1 GM/50 ML BAG IV ONE (12:39)
[2017-10-21] MEDS: traMADol TAB* 50 MG PO PRN (16:38)
[2017-10-21] MEDS: Ropinirole TAB* 0.5 MG TAB PO SCH (19:46)
[2017-10-22] MEDS: oxyCODONE TAB* 5 MG TAB PO PRN ×6 (01:28→21:41)
[2017-10-22] MEDS: Patiromer POWDER* 8.4 GM PAK PO SCH (06:00)
[2017-10-22] MEDS: oxyCODONE SR TAB(*) 10 MG TAB.SR PO SCH ×2 (08:07→21:41)
[2017-10-22] MEDS: Sevelamer TAB* 800 MG PO SCH ×3 (08:07→17:10)
[2017-10-22] MEDS: Folic Acid TAB* 1 MG PO SCH (08:07)
[2017-10-22] MEDS: Hydroxychloroquine TAB* 200 MG PO SCH ×2 (08:08→21:42)
[2017-10-22] MEDS: Carvedilol TAB* 3.125 MG PO SCH ×2 (08:08→21:41)
[2017-10-22] MEDS: amLODIPine TAB* 5 MG PO SCH (08:08)
[2017-10-22] MEDS: Omeprazole CAP* 20 MG PO SCH (08:08)
[2017-10-22] MEDS: Prazosin CAP* 1 MG PO SCH ×2 (08:08→21:42)
[2017-10-22] MEDS: Azithromycin TAB* 250 MG PO SCH (08:08)
[2017-10-22] MEDS: Heparin VIAL(*) 5000 UNITS/ML VIAL (FIVE THOUSAND) SUBCUT SCH ×2 (08:09→21:42)
[2017-10-22] MEDS: Mupirocin 2% OINT* TUBE TOPICAL SCH (08:23)
[2017-10-22] MEDS: Acetaminophen TAB* 325 MG PO PRN (08:23)
[2017-10-22] MEDS: Calcitriol CAP* 0.25 MCG PO SCH (08:23)
[2017-10-22] MEDS ORDERED: Magnesium Hydroxide LIQ* 30 ML UDC PO ONE (08:38)
[2017-10-22] MEDS ORDERED: Polyethylene Glycol 3350* 17 GM PACKET PO PRN (08:38)
[2017-10-22] MEDS ORDERED: Cefepime 1 GM in Dextrose(*) 1 GM/50 ML BAG IV SCH (10:00)
--- NOTE | 2017-10-22 14:21 | PN ---
Subjective Date of Service: 10/22/17 Interval History: C/O pains in both legs from thighs to feet. Still some cough but much better than on admission. Objective Active Medications: Acetaminophen (Tylenol Tab*) 650 mg PO Q6H PRN PRN Reason: PAIN Last Admin: 10/22/17 08:23 Dose: 650 mg Amlodipine Besylate (Norvasc Tab*) 10 mg PO DAILY [facility] Last Admin: 10/22/17 08:08 Dose: 10 mg Azithromycin (Zithromax Tab*) 500 mg PO DAILY [facility] Stop: 10/23/17 23:59 Last Admin: 10/22/17 08:08 Dose: 500 mg Calcitriol (Rocaltrol Cap*) 1 mcg PO DAILY [facility] Last Admin: 10/22/17 08:23 Dose: 1 mcg Carvedilol (Coreg Tab*) 3.125 mg PO BID [facility] Last Admin: 10/22/17 08:08 Dose: 3.125 mg Folic Acid (Folvite Tab*) 5 mg PO DAILY [facility] Last Admin: 10/22/17 08:07 Dose: 5 mg Heparin Sodium (Porcine) (Heparin Vial(*)) 5,000 units SUBCUT Q12HR [facility] Last Admin: 10/22/17 08:09 Dose: Not Given Hydroxychloroquine Sulfate (Plaquenil Tab*) 200 mg PO BID [facility] Last Admin: 10/22/17 08:08 Dose: 200 mg Cefepime HCl (Maxipime 1 Gm In Dextrose Duplex (*)) 1 gm in 50 mls @ 100 mls/ hr IV Q24H [facility] Last Admin: 10/22/17 09:38 Dose: 100 mls/hr Mupirocin (Bactroban 2 % Oint*) 1 applic TOPICAL DAILY [facility] Last Admin: 10/22/17 08:23 Dose: Not Given Omeprazole (Prilosec Cap*) 20 mg PO DAILY@0730 [facility] Last Admin: 10/22/17 08:08 Dose: 20 mg Oxycodone HCl (Oxycontin(*)) 10 mg PO Q12HR [facility] Last Admin: 10/22/17 08:07 Dose: 10 mg Oxycodone HCl (Roxycodone Tab*) 10 mg PO Q3H PRN PRN Reason: PAIN - SEVERE Last Admin: 10/22/17 13:53 Dose: 10 mg Patiromer (Patir) 8.4 gm PO DAILY@0600 [facility] Last Admin: 10/22/17 06:00 Dose: Not Given Pharmacy Consult (Vancomycin Per Pharmacy*) 1 note FOLLOW UP . PRN PRN Reason: PER PROTOCOL Pharmacy Consult (Vancomycin Random Level*) 1 note FOLLOW UP 06 [facility] Stop: 10/24/17 06:01 Polyethylene Glycol/Electrolytes (Miralax*) 17 gm PO DAILY PRN PRN Reason: CONSTIPATION Prazosin HCl (Minipress Cap*) 1 mg PO BID [facility] Last Admin: 10/22/17 08:08 Dose: 1 mg Prochlorperazine (Compazine Tab*) 10 mg PO Q8H PRN PRN Reason: VOMITING Ropinirole HCl (Requip Tab*) 0.5 mg PO BEDTIME [facility] Last Admin: 10/21/17 19:46 Dose: 0.5 mg Sevelamer Carbonate (Renvela Tab*) 2,400 mg PO AC [facility] Last Admin: 10/22/17 12:33 Dose: 2,400 mg Tramadol HCl (Ultram*) 50 mg PO Q12H PRN PRN Reason: PAIN Last Admin: 10/21/17 16:38 Dose: 50 mg Trazodone HCl (Desyrel Tab*) 50 mg PO BEDTIME PRN PRN Reason: SLEEP Last Admin: 10/19/17 19:50 Dose: 50 mg Vital Signs - 8 hr 10/22/17 10/22/17 10/22/17 08:00 08:07 08:22 Temperature 101.3 F Pulse Rate 104 Respiratory 18 20 18 Rate Blood Pressure 131/70 (mmHg) O2 Sat by Pulse 98 98 Oximetry 10/22/17 10/22/17 10/22/17 09:38 09:57 10:45 Temperature 98.8 F Pulse Rate Respiratory 18 18 Rate Blood Pressure (mmHg) O2 Sat by Pulse Oximetry 10/22/17 10/22/17 10/22/17 11:04 12:33 13:53 Temperature 100.3 F Pulse Rate 86 Respiratory 15 18 18 Rate Blood Pressure 111/57 (mmHg) O2 Sat by Pulse 97 Oximetry Oxygen Devices in Use Now: Nasal Cannula Appearance: Alert, partly up in bed. In fair spirits. Looks comfortable. Eyes: No Scleral Icterus Neck: NL Appearance and Movements; NL JVP, No Thyroid Enlargement, Masses Respiratory: Symmetrical Chest Expansion and Respiratory Effort, Clear to Auscultation, Clear to Percussion Cardiovascular: NL Sounds; No Murmurs; No JVD, RRR, No Edema, - Extremities: No Edema, No Clubbing, Cyanosis, - Skin: No Rash or Ulcers, No Nodules or Sclerosis, - Neurological: Alert and Oriented x 3, NL Sensation Result Diagrams: 10/20/17 06:06 10/20/17 06:06 Additional Lab and Data: Lab Results 10/19/17 10/19/17 Range/Units 06:38 06:38 WBC 4.4 (3.5-10.8) 10^3/ul RBC 2.48 L (4.00-5.40) 10^6/ul Hgb 8.3 L (14.0-18.0) g/dl Hct 24 L (42-52) % MCV 98 H (80-94) fL MCH 34 H (27-31) pg MCHC 34 (31-36) g/dl RDW 14 (10.5-15) % Plt Count 337 (150-450) 10^3/ul MPV 9.2 (7.4-10.4) um3 Neut % (Auto) 79.8 (38-83) % Lymph % (Auto) 11.8 L (25-47) % Fisher % (Auto) 6.8 (0-7) % Eos % (Auto) 0.5 (0-6) % Baso % (Auto) 1.1 (0-2) % Absolute Neuts (auto) 3.5 (1.5-7.7) 10^3/ul Absolute Lymphs (auto) 0.5 L (1.0-4.8) 10^3/ul Absolute Monos (auto) 0.3 (0-0.8) 10^3/ul Absolute Eos (auto) 0 (0-0.6) 10^3/ul Absolute Basos (auto) 0 (0-0.2) 10^3/ul Absolute Nucleated RBC 0 10^3/ul Nucleated RBC % 0.1 INR (Anticoag Therapy) 0.97 (0.77-1.02) APTT 28.5 (26.0-36.3) seconds Microbiology and Other Data: Microbiology 10/19/17 06:50 Aerobic Blood Culture - Preliminary Blood Venous No Growth Day 1 Anaerobic Blood Culture - Preliminary No Growth Day 1 10/19/17 06:53 Aerobic Blood Culture - Preliminary Blood Venous No Growth Day 1 Anaerobic Blood Culture - Preliminary No Growth Day 1 Assess/Plan/Problems-Billing Assessment: - Patient Problems (1) ESRD (end stage renal disease) on dialysis Current Visit: No Status: Acute Code(s): N18.6 - END STAGE RENAL DISEASE; Z99.2 - DEPENDENCE ON RENAL DIALYSIS SNOMED Code(s): 674796494 Comment: Continue PD. (2) SLE (systemic lupus erythematosus) Current Visit: No Status: Acute Code(s): M32.9 - SYSTEMIC LUPUS ERYTHEMATOSUS, UNSPECIFIED SNOMED Code(s): 60283617 Comment: Continue plaquenil. 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 (3) HTN (hypertension) Current Visit: No Status: Acute Code(s): I10 - ESSENTIAL (PRIMARY) HYPERTENSION SNOMED Code(s): 35476484 Comment: BP is under good control. Continue amlodipine, carvedilol, prazosin. (4) Sepsis Current Visit: Yes Status: Acute Comment: Improved. Continue cefepime, vanco, azith. T 101.3 10/22 08:07 hrs. Blood C&S x 2 and peritoneal fluid C&S sent 10/22. Note very high CRP. (5) Myoclonus Current Visit: Yes Status: Acute Code(s): G25.3 - MYOCLONUS SNOMED Code(s) : 22218268 Comment: Much improved after stopping gabapentin. (6) Peripheral neuropathy Current Visit: Yes Status: Acute Code(s): G62.9 - POLYNEUROPATHY, UNSPECIFIED SNOMED Code(s): 675436811 Comment: Continue oxycontin SR 10 mg bid. Discussed with Dr. Sawyer. Inpatient nerve conduction study if personnel time available
[2017-10-22] MEDS: Ropinirole TAB* 0.5 MG TAB PO SCH (21:42)
[2017-10-23] MEDS: Patiromer POWDER* 8.4 GM PAK PO SCH (05:57)
[2017-10-23] MEDS: Vancomycin Random Level* NOTE FOLLOW UP SCH (05:58)
[2017-10-23] MEDS: Folic Acid TAB* 1 MG PO SCH (07:45)
[2017-10-23] MEDS: Azithromycin TAB* 250 MG PO SCH (07:45)
[2017-10-23] MEDS: amLODIPine TAB* 5 MG PO SCH (07:45)
[2017-10-23] MEDS: Sevelamer TAB* 800 MG PO SCH ×3 (07:45→17:34)
[2017-10-23] MEDS: Omeprazole CAP* 20 MG PO SCH (07:46)
[2017-10-23] MEDS: oxyCODONE SR TAB(*) 10 MG TAB.SR PO SCH ×2 (07:46→22:26)
[2017-10-23] MEDS: Carvedilol TAB* 3.125 MG PO SCH ×2 (07:46→22:27)
[2017-10-23] MEDS: Calcitriol CAP* 0.25 MCG PO SCH (07:46)
[2017-10-23] MEDS: Prazosin CAP* 1 MG PO SCH ×2 (07:46→22:27)
[2017-10-23] MEDS: Hydroxychloroquine TAB* 200 MG PO SCH ×2 (07:46→22:27)
[2017-10-23] MEDS: Acetaminophen TAB* 325 MG PO PRN (07:50)
[2017-10-23] MEDS: Heparin VIAL(*) 5000 UNITS/ML VIAL (FIVE THOUSAND) SUBCUT SCH ×2 (07:52→22:28)
[2017-10-23] MEDS: Mupirocin 2% OINT* TUBE TOPICAL SCH (07:53)
[2017-10-23] MEDS: oxyCODONE TAB* 5 MG TAB PO PRN ×5 (08:52→22:27)
--- NOTE | 2017-10-23 13:55 | PN ---
Subjective Date of Service: 10/23/17 Interval History: Leg pain same or sl better. Cough nearly gone, non-productive. No cough. No bowel c/o. Shaking chills before his fevers. Objective Active Medications: Acetaminophen (Tylenol Tab*) 650 mg PO Q6H PRN PRN Reason: PAIN Last Admin: 10/23/17 07:50 Dose: 650 mg Amlodipine Besylate (Norvasc Tab*) 10 mg PO DAILY [facility] Last Admin: 10/23/17 07:45 Dose: 10 mg Azithromycin (Zithromax Tab*) 500 mg PO DAILY [facility] Stop: 10/23/17 23:59 Last Admin: 10/23/17 07:45 Dose: 500 mg Calcitriol (Rocaltrol Cap*) 1 mcg PO DAILY [facility] Last Admin: 10/23/17 07:46 Dose: 1 mcg Carvedilol (Coreg Tab*) 3.125 mg PO BID [facility] Last Admin: 10/23/17 07:46 Dose: 3.125 mg Folic Acid (Folvite Tab*) 5 mg PO DAILY [facility] Last Admin: 10/23/17 07:45 Dose: 5 mg Heparin Sodium (Porcine) (Heparin Vial(*)) 5,000 units SUBCUT Q12HR [facility] Last Admin: 10/23/17 07:52 Dose: Not Given Hydroxychloroquine Sulfate (Plaquenil Tab*) 200 mg PO BID [facility] Last Admin: 10/23/17 07:46 Dose: 200 mg Cefepime HCl (Maxipime 1 Gm In Dextrose Duplex (*)) 1 gm in 50 mls @ 100 mls/ hr IV Q48H [facility] Mupirocin (Bactroban 2 % Oint*) 1 applic TOPICAL DAILY [facility] Last Admin: 10/23/17 07:53 Dose: Not Given Omeprazole (Prilosec Cap*) 20 mg PO DAILY@0730 [facility] Last Admin: 10/23/17 07:46 Dose: 20 mg Oxycodone HCl (Oxycontin(*)) 10 mg PO Q12HR [facility] Last Admin: 10/23/17 07:46 Dose: Not Given Oxycodone HCl (Roxycodone Tab*) 10 mg PO Q3H PRN PRN Reason: PAIN - SEVERE Last Admin: 10/23/17 11:51 Dose: 10 mg Patiromer (Patir) 8.4 gm PO DAILY@0600 [facility] Last Admin: 10/23/17 05:57 Dose: Not Given Pharmacy Consult (Vancomycin Per Pharmacy*) 1 note FOLLOW UP . PRN PRN Reason: PER PROTOCOL Pharmacy Consult (Vancomycin Random Level*) 1 note FOLLOW UP 599 [facility] Stop: 10/24/17 06:01 Last Admin: 10/23/17 05:58 Dose: 1 vial Polyethylene Glycol/Electrolytes (Miralax*) 17 gm PO DAILY PRN PRN Reason: CONSTIPATION Prazosin HCl (Minipress Cap*) 1 mg PO BID [facility] Last Admin: 10/23/17 07:46 Dose: 1 mg Prochlorperazine (Compazine Tab*) 10 mg PO Q8H PRN PRN Reason: VOMITING Ropinirole HCl (Requip Tab*) 0.5 mg PO BEDTIME [facility] Last Admin: 10/22/17 21:42 Dose: 0.5 mg Sevelamer Carbonate (Renvela Tab*) 2,400 mg PO AC [facility] Last Admin: 10/23/17 12:42 Dose: 2,400 mg Tramadol HCl (Ultram*) 50 mg PO Q12H PRN PRN Reason: PAIN Last Admin: 10/21/17 16:38 Dose: 50 mg Trazodone HCl (Desyrel Tab*) 50 mg PO BEDTIME PRN PRN Reason: SLEEP Last Admin: 10/19/17 19:50 Dose: 50 mg Vital Signs - 8 hr 10/23/17 10/23/17 10/23/17 07:40 07:41 08:00 Temperature 102.6 F 102.6 F Pulse Rate 102 102 Respiratory 18 20 16 Rate Blood Pressure 126/62 (mmHg) O2 Sat by Pulse 92 92 92 Oximetry 10/23/17 10/23/17 10/23/17 08:16 08:31 08:38 Temperature 102.0 F 101.0 F 102.2 F Pulse Rate 103 98 Respiratory 16 16 Rate Blood Pressure 130/62 102/42 (mmHg) O2 Sat by Pulse 95 92 Oximetry 10/23/17 10/23/17 10/23/17 08:52 11:50 11:51 Temperature Pulse Rate Respiratory 18 18 18 Rate Blood Pressure (mmHg) O2 Sat by Pulse Oximetry 10/23/17 10/23/17 12:43 13:33 Temperature 99.7 F Pulse Rate 92 Respiratory 16 18 Rate Blood Pressure 108/54 (mmHg) O2 Sat by Pulse 94 Oximetry Oxygen Devices in Use Now: None Appearance: Alert, supine in bed. In fair spirits. Looks comfortable. Eyes: No Scleral Icterus Respiratory: Symmetrical Chest Expansion and Respiratory Effort, Clear to Auscultation, Clear to Percussion Cardiovascular: NL Sounds; No Murmurs; No JVD, RRR, No Edema, - Abdominal: NL Sounds; No Tenderness; No Distention, No Hepatosplenomegaly, - Extremities: No Edema, No Clubbing, Cyanosis, - - AV fistula L arm soft, not red or tender. Skin: No Rash or Ulcers, No Nodules or Sclerosis, - Neurological: Alert and Oriented x 3, NL Sensation Result Diagrams: 10/20/17 06:06 10/20/17 06:06 Additional Lab and Data: Lab Results 10/19/17 10/19/17 Range/Units 06:38 06:38 WBC 4.4 (3.5-10.8) 10^3/ul RBC 2.48 L (4.00-5.40) 10^6/ul Hgb 8.3 L (14.0-18.0) g/dl Hct 24 L (42-52) % MCV 98 H (80-94) fL MCH 34 H (27-31) pg MCHC 34 (31-36) g/dl RDW 14 (10.5-15) % Plt Count 337 (150-450) 10^3/ul MPV 9.2 (7.4-10.4) um3 Neut % (Auto) 79.8 (38-83) % Lymph % (Auto) 11.8 L (25-47) % Lawrence % (Auto) 6.8 (0-7) % Eos % (Auto) 0.5 (0-6) % Baso % (Auto) 1.1 (0-2) % Absolute Neuts (auto) 3.5 (1.5-7.7) 10^3/ul Absolute Lymphs (auto) 0.5 L (1.0-4.8) 10^3/ul Absolute Monos (auto) 0.3 (0-0.8) 10^3/ul Absolute Eos (auto) 0 (0-0.6) 10^3/ul Absolute Basos (auto) 0 (0-0.2) 10^3/ul Absolute Nucleated RBC 0 10^3/ul Nucleated RBC % 0.1 INR (Anticoag Therapy) 0.97 (0.77-1.02) APTT 28.5 (26.0-36.3) seconds Microbiology and Other Data: Microbiology 10/19/17 06:50 Aerobic Blood Culture - Preliminary Blood Venous No Growth Day 1 Anaerobic Blood Culture - Preliminary No Growth Day 1 10/19/17 06:53 Aerobic Blood Culture - Preliminary Blood Venous No Growth Day 1 Anaerobic Blood Culture - Preliminary No Growth Day 1 Assess/Plan/Problems-Billing Assessment: - Patient Problems (1) ESRD (end stage renal disease) on dialysis Current Visit: No Status: Acute Code(s): N18.6 - END STAGE RENAL DISEASE; Z99.2 - DEPENDENCE ON RENAL DIALYSIS SNOMED Code(s): 218999441 Comment: Continue PD. (2) SLE (systemic lupus erythematosus) Current Visit: No Status: Acute Code(s): M32.9 - SYSTEMIC LUPUS ERYTHEMATOSUS, UNSPECIFIED SNOMED Code(s): 46346374 Comment: Continue plaquenil. He states he saw his patient transportation driver in [place] about a week ago and was told his hand/foot pains are probably not due to SLE. (3) HTN (hypertension) Current Visit: No Status: Acute Code(s): I10 - ESSENTIAL (PRIMARY) HYPERTENSION SNOMED Code(s): 11925987 Comment: BP is under good control. Continue amlodipine, carvedilol, prazosin. (4) Sepsis Current Visit: Yes Status: Acute Comment: Improved. Continue cefepime, vanco, azith. T 101.3 10/22 08:07 hrs. Blood C&S x 2 and peritoneal fluid C&S sent 10/22. Note very high CRP. Repeat CRP, CBC< BMP 10/24. ? drug fever. (5) Myoclonus Current Visit: Yes Status: Acute Code(s): G25.3 - MYOCLONUS SNOMED Code(s) : 15645037 Comment: Much improved after stopping gabapentin. (6) Peripheral neuropathy Current Visit: Yes Status: Acute Code(s): G62.9 - POLYNEUROPATHY, UNSPECIFIED SNOMED Code(s): 707637599 Comment: Continue oxycontin SR 10 mg bid. Discussed with Dr. Sawyer. Inpatient nerve conduction study if personnel time available
[2017-10-23] MEDS: Ropinirole TAB* 0.5 MG TAB PO SCH (22:27)
[2017-10-24] MEDS: Patiromer POWDER* 8.4 GM PAK PO SCH (04:55)
[2017-10-24] MEDS: Vancomycin Random Level* NOTE FOLLOW UP SCH (06:21)
[2017-10-24 07:00] LABS: Hematocrit 21 % (42-52); Hemoglobin 7.1 g/dl (14.0-18.0); Mean Corpuscular HGB Conc 33 g/dl (31-36); Mean Corpuscular Hemoglobin 33 pg (27-31); Mean Corpuscular Volume 98 fL (80-94); Mean Platelet Volume 8.4 um3 (7.4-10.4); Platelet Count 405 10^3/ul (150-450); Red Blood Count 2.16 10^6/ul (4.00-5.40); Red Cell Distribution Width 14 % (10.5-15); White Blood Count 15.4 10^3/ul (3.5-10.8)
[2017-10-24 07:13] LABS: EGFR Non-African American 3.2 (>60)
[2017-10-24 07:43] LABS: ABS Basophils 0.1 10^3/ul (0-0.2); ABS Eosinophils 0 10^3/ul (0-0.6); ABS Lymphocytes 2.1 10^3/ul (1.0-4.8); ABS Monocytes 1.8 10^3/ul (0-0.8); ABS Neutrophils 11.4 10^3/ul (1.5-7.7); ABS Nucleated RBC 0.1 10^3/ul; Eosinophil % 0 % (0-6); Lymphocyte % 13.5 % (25-47); Nucleated Red Blood Cells % 0.3
[2017-10-24] MEDS: Omeprazole CAP* 20 MG PO SCH (08:04)
[2017-10-24] MEDS: Sevelamer TAB* 800 MG PO SCH ×3 (08:04→17:40)
[2017-10-24] MEDS: Mupirocin 2% OINT* TUBE TOPICAL SCH (09:02)
[2017-10-24] MEDS: Carvedilol TAB* 3.125 MG PO SCH ×2 (09:32→20:43)
[2017-10-24] MEDS: amLODIPine TAB* 5 MG PO SCH (09:32)
[2017-10-24] MEDS: Calcitriol CAP* 0.25 MCG PO SCH (09:32)
[2017-10-24] MEDS: Prazosin CAP* 1 MG PO SCH ×2 (09:32→20:43)
[2017-10-24] MEDS: Folic Acid TAB* 1 MG PO SCH (09:32)
[2017-10-24] MEDS: oxyCODONE SR TAB(*) 10 MG TAB.SR PO SCH ×2 (09:32→20:42)
[2017-10-24] MEDS: Hydroxychloroquine TAB* 200 MG PO SCH ×2 (09:32→20:43)
[2017-10-24] MEDS: Acetaminophen TAB* 325 MG PO PRN (09:39)
[2017-10-24] MEDS: oxyCODONE TAB* 5 MG TAB PO PRN ×4 (09:40→22:14)
[2017-10-24] MEDS: Heparin VIAL(*) 5000 UNITS/ML VIAL (FIVE THOUSAND) SUBCUT SCH ×2 (09:42→20:43)
[2017-10-24] MEDS ORDERED: Vancomycin(*) 1,000 MG in NS 0.9% 250 ML* 250 ML IVPB ONE (10:00)
[2017-10-24] MEDS ORDERED: Cefepime 1 GM in Dextrose(*) 1 GM/50 ML BAG IV SCH (10:00)
--- NOTE | 2017-10-24 10:33 | RAD ---
Indication: Fever. 2 views of the chest including dual energy PA views demonstrates no mediastinal shift. Cardiomegaly is noted. There is no pleural fluid, pneumonia or pneumothorax. Some minimal atelectasis is noted in the left midlung field. Likely small left pleural effusion is noted. IMPRESSION: Minimal atelectasis mid left lung field without evidence of alveolar consolidation. There may be a small left pleural effusion.
--- NOTE | 2017-10-24 11:26 | RAD ---
Indication: Shortness of breath. Ventilation and perfusion lung scan was performed. Ventilation scan was performed after administration of 10.6 mCi of xenon-133. 6.2 mCi of technetium 99m macroaggregated albumin was injected. This was done for the perfusion study. The perfusion scan demonstrates no evidence of segmental or subsegmental perfusion defects. Ventilation scan demonstrates no evidence of ventilation defect. IMPRESSION: Low probability scan for pulmonary embolus.
[2017-10-24] MEDS: Piperacillin/Tazobac ADVAN(*) 2.25 GM in NS 0.9% 100 ML* 100 ML IVPB SCH ×2 (12:26→21:58)
[2017-10-24] MEDS: Prochlorperazine TAB* 10 MG PO PRN (17:40)
--- NOTE | 2017-10-24 17:46 | PN ---
Subjective Date of Service: 10/24/17 Interval History: Pt seen and examined. Meds and labs reviewed. Pt complained of pleuritic CP earlier and given pt has been refusing pharmacologic DVT prophylaxis ordered despite his high risk, he was sent for V/Q Scan which was read as low probability PE. ROS: Pleuritic CP earlier. Denied SUGGS/dizziness, F/C, N/V, SOB, increased cough , sputum production, abd pain, diarrhea, constipation, dysuria, myalgias, arthralgias, throat pain, and new skin lesions. The rest of the 14 point ROS are unremarkable. PHYSICAL EXAM: GEN APPEARANCE: Awake, not in acute distress HEENT: NC/AT, PERRLA, moist oral mucosa, (-) throat erythema NECK: Soft, supple, (-) cervical LAD, (-)JVD HEART: S1S2 WNL, RRR, No MRG CHEST: CTA, BL, GAE, No W/R/R ABD: Soft, ND/NT, NABS 4x Q EXT: No C/C/E SKIN: Warm to touch PSYCH: No active psychosis, hallucinations, depression, SI/HI Objective Active Medications: Acetaminophen (Tylenol Tab*) 650 mg PO Q6H PRN PRN Reason: PAIN Last Admin: 10/24/17 09:39 Dose: 650 mg Amlodipine Besylate (Norvasc Tab*) 10 mg PO DAILY [facility] Last Admin: 10/24/17 09:32 Dose: 10 mg Calcitriol (Rocaltrol Cap*) 1 mcg PO DAILY [facility] Last Admin: 10/24/17 09:32 Dose: 1 mcg Carvedilol (Coreg Tab*) 3.125 mg PO BID [facility] Last Admin: 10/24/17 09:32 Dose: 3.125 mg Folic Acid (Folvite Tab*) 5 mg PO DAILY [facility] Last Admin: 10/24/17 09:32 Dose: 5 mg Heparin Sodium (Porcine) (Heparin Vial(*)) 5,000 units SUBCUT Q12HR [facility] Last Admin: 10/24/17 09:42 Dose: Not Given Hydroxychloroquine Sulfate (Plaquenil Tab*) 200 mg PO BID [facility] Last Admin: 10/24/17 09:32 Dose: 200 mg Piperacillin Sod/Tazobactam (Sod 2.25 gm/ Sodium Chloride) 100 mls @ 25 mls/hr IVPB Q12H [facility] Last Admin: 10/24/17 12:26 Dose: 25 mls/hr Vancomycin HCl 1,000 mg/ (Sodium Chloride) 250 mls @ 166.667 mls/hr IVPB Q72H [facility] Mupirocin (Bactroban 2 % Oint*) 1 applic TOPICAL DAILY [facility] Last Admin: 10/24/17 09:02 Dose: Not Given Omeprazole (Prilosec Cap*) 20 mg PO DAILY@0730 [facility] Last Admin: 10/24/17 08:04 Dose: 20 mg Oxycodone HCl (Oxycontin(*)) 10 mg PO Q12HR [facility] Last Admin: 10/24/17 09:32 Dose: 10 mg Oxycodone HCl (Roxycodone Tab*) 10 mg PO Q3H PRN PRN Reason: PAIN - SEVERE Last Admin: 10/24/17 15:14 Dose: 10 mg Patiromer (Patir) 8.4 gm PO DAILY@0600 [facility] Last Admin: 10/24/17 04:55 Dose: Not Given Pharmacy Profile Note (Vancomycin Trough Check) 1 note FOLLOW UP 0600 ONE Stop: 10/27/17 06:01 Polyethylene Glycol/Electrolytes (Miralax*) 17 gm PO DAILY PRN PRN Reason: CONSTIPATION Prazosin HCl (Minipress Cap*) 1 mg PO BID [facility] Last Admin: 10/24/17 09:32 Dose: 1 mg Prochlorperazine (Compazine Tab*) 10 mg PO Q8H PRN PRN Reason: VOMITING Ropinirole HCl (Requip Tab*) 0.5 mg PO BEDTIME [facility] Last Admin: 10/23/17 22:27 Dose: 0.5 mg Sevelamer Carbonate (Renvela Tab*) 2,400 mg PO AC [facility] Last Admin: 10/24/17 11:52 Dose: 2,400 mg Tramadol HCl (Ultram*) 50 mg PO Q12H PRN PRN Reason: PAIN Last Admin: 10/21/17 16:38 Dose: 50 mg Trazodone HCl (Desyrel Tab*) 50 mg PO BEDTIME PRN PRN Reason: SLEEP Last Admin: 10/19/17 19:50 Dose: 50 mg Vital Signs - 8 hr 10/24/17 10/24/17 10/24/17 10:05 10:14 12:16 Temperature 99.8 F Pulse Rate 95 93 Respiratory 20 20 14 Rate Blood Pressure 133/67 (mmHg) O2 Sat by Pulse 100 98 Oximetry 10/24/17 10/24/17 10/24/17 12:20 15:09 15:14 Temperature Pulse Rate Respiratory 16 16 14 Rate Blood Pressure (mmHg) O2 Sat by Pulse Oximetry 10/24/17 17:00 Temperature Pulse Rate Respiratory 16 Rate Blood Pressure (mmHg) O2 Sat by Pulse Oximetry Oxygen Devices in Use Now: Nasal Cannula Result Diagrams: 10/24/17 06:18 10/24/17 06:18 Additional Lab and Data: Lab Results 10/19/17 10/19/17 Range/Units 06:38 06:38 WBC 4.4 (3.5-10.8) 10^3/ul RBC 2.48 L (4.00-5.40) 10^6/ul Hgb 8.3 L (14.0-18.0) g/dl Hct 24 L (42-52) % MCV 98 H (80-94) fL MCH 34 H (27-31) pg MCHC 34 (31-36) g/dl RDW 14 (10.5-15) % Plt Count 337 (150-450) 10^3/ul MPV 9.2 (7.4-10.4) um3 Neut % (Auto) 79.8 (38-83) % Lymph % (Auto) 11.8 L (25-47) % [place] % (Auto) 6.8 (0-7) % Eos % (Auto) 0.5 (0-6) % Baso % (Auto) 1.1 (0-2) % Absolute Neuts (auto) 3.5 (1.5-7.7) 10^3/ul Absolute Lymphs (auto) 0.5 L (1.0-4.8) 10^3/ul Absolute Monos (auto) 0.3 (0-0.8) 10^3/ul Absolute Eos (auto) 0 (0-0.6) 10^3/ul Absolute Basos (auto) 0 (0-0.2) 10^3/ul Absolute Nucleated RBC 0 10^3/ul Nucleated RBC % 0.1 INR (Anticoag Therapy) 0.97 (0.77-1.02) APTT 28.5 (26.0-36.3) seconds Microbiology and Other Data: Microbiology 10/19/17 06:50 Aerobic Blood Culture - Preliminary Blood Venous No Growth Day 1 Anaerobic Blood Culture - Preliminary No Growth Day 1 10/19/17 06:53 Aerobic Blood Culture - Preliminary Blood Venous No Growth Day 1 Anaerobic Blood Culture - Preliminary No Growth Day 1 Assess/Plan/Problems-Billing - Patient Problems (1) Pleuritic chest pain Current Visit: Yes Status: Acute Comment: -Unclear etiology -Possibly musculoskeletal -Low probability for PE in V/Q scan -Continue watchful waiting -While troponins are mildly elevated, improved from previous dayslast set of troponin at 2AM (2) ESRD (end stage renal disease) on dialysis Current Visit: No Status: Acute Code(s): N18.6 - END STAGE RENAL DISEASE; Z99.2 - DEPENDENCE ON RENAL DIALYSIS SNOMED Code(s): 642993824 Comment: -Continue PD. (3) SLE (systemic lupus erythematosus) Current Visit: No Status: Acute Code(s): M32.9 - SYSTEMIC LUPUS ERYTHEMATOSUS, UNSPECIFIED SNOMED Code(s): 04542136 Comment: -Continue plaquenil. He states he saw his electric range preparer in [place] about a week ago and was told his hand/foot pains are probably not due to SLE. (4) HTN (hypertension) Current Visit: No Status: Acute Code(s): I10 - ESSENTIAL (PRIMARY) HYPERTENSION SNOMED Code(s): 60118953 Comment: -BP is under good control. Continue amlodipine, carvedilol, prazosin. (5) Sepsis Current Visit: Yes Status: Acute Comment: -Improved. Continue cefepime, vanco, azith. T 101.3 10/22 08:07 hrs. Blood C&S x 2 and peritoneal fluid C&S sent 10/22. Note very high CRP. Repeat CRP, CBC< BMP 10/24. ? drug fever. (6) Myoclonus Current Visit: Yes Status: Acute Code(s): G25.3 - MYOCLONUS SNOMED Code(s) : 57119283 Comment: -Much improved after stopping gabapentin. (7) Peripheral neuropathy Current Visit: Yes Status: Acute Code(s): G62.9 - POLYNEUROPATHY, UNSPECIFIED SNOMED Code(s): 505681849 Comment: -Continue oxycontin SR 10 mg bid. Discussed with Dr. Sawyer. Inpatient nerve conduction study if personnel time available (8) DVT prophylaxis Current Visit: No Status: Acute Code(s): WFM2220 - SNOMED Code(s): 713509869 Comment: -ambulation -SCDs at night (9) Leukocytosis Current Visit: Yes Status: Acute Code(s): D72.829 - ELEVATED WHITE BLOOD CELL COUNT, UNSPECIFIED SNOMED Code(s): 399521491 Comment: -Accompanied by fever; cultures resent; CXR shows some improvement from PNA -He mentions, however, that his urologist wanted to "scan" him as an outpatient for possible bladder CA?? -Will obtain non-contrast abd/pelvis CT Status and Disposition: -As above
--- NOTE | 2017-10-24 20:11 | RAD ---
CLINICAL HISTORY: Hypoxic respiratory failure and pneumonia. Relevant surgical history includes nephrectomy, splenectomy, inguinal hernia repair" multiple fistula placements" COMPARISON: CT abdomen pelvis April 17, 2017 TECHNIQUE: Noncontrast CT examination of the abdomen and pelvis from the lung bases through the initial tuberosities. FINDINGS: VISUALIZED LUNG BASES: The visualized lung bases are grossly clear. There is no pleural effusion. ABDOMEN AND PELVIS: Evaluation of the solid organs and vasculature is limited without intravenous contrast. The liver, pancreas and adrenal glands are grossly normal in appearance. The gallbladder is normal. The right kidney is normal in appearance without focal mass, calcification or signs of hydronephrosis. The left kidney is surgically absent. At the right hemiabdomen there is a peritoneal dialysis catheter that terminates at the midline lower abdomen just above the urinary bladder. There is trace peritoneal ascites in the low abdomen and pelvis. Evaluation of the gastrointestinal tract is limited without oral contrast. The small and large bowel are not distended.The patient's normal appendix is identified in the right lower quadrant with gas in the lumen measuring 5 mm in diameter (sagittal image 33) the gas and stool-filled colon is grossly normal in appearance.. There is no gross retroperitoneal or mesenteric lymphadenopathy. The pelvic viscera is normal in appearance. The abdominal aorta and iliac arteries are normal in course and diameter. Degenerative changes include multilevel loss of intervertebral disc height involving the lower thoracic and lumbar spine.There are no sinister bone lesions. IMPRESSION: Chronic, degenerative and postsurgical changes described above without CT apparent acute abnormality that would account for the patient's symptoms.
[2017-10-24] MEDS: Ropinirole TAB* 0.5 MG TAB PO SCH (20:43)
[2017-10-24] MEDS ORDERED: Ondansetron 40 MG VIAL* 2 MG/ML 20 ML VIAL IV PRN (21:26)
[2017-10-24] MEDS ORDERED: NS 0.9% 100 ML* 100 ML ONE (21:48)
[2017-10-25] MEDS: oxyCODONE TAB* 5 MG TAB PO PRN ×4 (03:17→17:51)
[2017-10-25 03:27] LABS: EGFR Non-African American 3.1 (>60)
[2017-10-25 03:36] LABS: Hematocrit 19 % (42-52); Hemoglobin 6.4 g/dl (14.0-18.0); Mean Corpuscular HGB Conc 33 g/dl (31-36); Mean Corpuscular Hemoglobin 33 pg (27-31); Mean Corpuscular Volume 99 fL (80-94); Mean Platelet Volume 8.2 um3 (7.4-10.4); Platelet Count 448 10^3/ul (150-450); Red Blood Count 1.94 10^6/ul (4.00-5.40); Red Cell Distribution Width 14 % (10.5-15); White Blood Count 14.1 10^3/ul (3.5-10.8)
[2017-10-25] MEDS: Patiromer POWDER* 8.4 GM PAK PO SCH (05:56)
[2017-10-25] MEDS: Sevelamer TAB* 800 MG PO SCH ×3 (07:42→17:50)
[2017-10-25] MEDS: Omeprazole CAP* 20 MG PO SCH (07:42)
[2017-10-25] MEDS: Prazosin CAP* 1 MG PO SCH ×2 (10:03→21:32)
[2017-10-25] MEDS: Calcitriol CAP* 0.25 MCG PO SCH (10:03)
[2017-10-25] MEDS: Folic Acid TAB* 1 MG PO SCH (10:03)
[2017-10-25] MEDS: amLODIPine TAB* 5 MG PO SCH (10:03)
[2017-10-25] MEDS: oxyCODONE SR TAB(*) 10 MG TAB.SR PO SCH ×2 (10:03→21:32)
[2017-10-25] MEDS: Hydroxychloroquine TAB* 200 MG PO SCH ×2 (10:04→21:33)
[2017-10-25] MEDS: Carvedilol TAB* 3.125 MG PO SCH ×2 (10:04→21:32)
[2017-10-25] MEDS: Piperacillin/Tazobac ADVAN(*) 2.25 GM in NS 0.9% 100 ML* 100 ML IVPB SCH ×2 (10:05→21:32)
[2017-10-25] MEDS: Mupirocin 2% OINT* TUBE TOPICAL SCH (10:13)
[2017-10-25] MEDS: Heparin VIAL(*) 5000 UNITS/ML VIAL (FIVE THOUSAND) SUBCUT SCH ×3 (10:13→21:34)
[2017-10-25] MEDS ORDERED: Iodixanol* (CONTRAST) 320 MG/ML 100 ML SDV IV ONE (11:28)
--- NOTE | 2017-10-25 14:42 | RAD ---
INDICATION: Fever of unknown origin. Hypoxic respiratory failure. History of kidney cancer. Prior nephrectomy, splenectomy, inguinal hernia repair. Multiple fistula placements. COMPARISON: Noncontrast abdomen pelvis CT of October 24, 2017. TECHNIQUE: Multidetector CT images were obtained from the lung bases to the ischial tuberosities with 88 mL Visipaque 320 IV and oral contrast. Multiplanar reformation. REPORT: Small bilateral dependent pleural effusions with proportional basilar atelectasis. Mild prominence of the peripheral interlobular septa. Cardiomegaly. Negative for pericardial effusion. Unremarkable liver. Largely decompressed gallbladder limiting assessment without compelling abnormality. Negative for biliary dilatation. Unremarkable pancreas. Post splenectomy. Negative for CT abnormality of the upper GI, small bowel, appendix visualized medial to the cecum, or colon. Small volume of nonspecific free peritoneal fluid given presence of RIGHT lower quadrant peritoneal dialysis catheter. Negative for free intraperitoneal air or significant hernias. Unremarkable adrenal glands. No suspicious finding at the LEFT post nephrectomy space. Moderately severe atrophy of the RIGHT kidney with innumerable cortical cysts. Delayed RIGHT nephrogram and pyelogram. Negative for obstructive uropathy. Unremarkable nondilated RIGHT ureter. Largely decompressed urinary bladder limiting assessment without gross abnormality. No suspicious finding of the visualized male urogenital structures. Negative for lymphadenopathy. Normal diameter abdominal aorta and iliac arteries. Physiologic distention of the IVC. Negative for retroperitoneal hematoma or other fluid collection. Negative for suspicious focal osseous lesions. IMPRESSION: 1. Probable mild interstitial pulmonary edema with small associated pleural effusions. 2. No peritoneal abscess collection or other acute inflammatory process in the abdomen or pelvis. 3. Small volume of nonspecific free peritoneal fluid given presence of RIGHT lower quadrant peritoneal dialysis catheter. 4. No suspicious finding at the LEFT post nephrectomy space or evidence for visceral, levon, or bone metastasis.
--- NOTE | 2017-10-25 15:18 | PN ---
Subjective Date of Service: 10/25/17 Interval History: Pt seen and examined. Meds and labs reviewed. ROS: Denied SUGGS/dizziness, F/C, N/V, CP, SOB, increased cough, sputum production , abd pain, diarrhea, constipation, dysuria, myalgias, arthralgias, throat pain , and new skin lesions. The rest of the 14 point ROS are unremarkable. PHYSICAL EXAM: GEN APPEARANCE: Awake, not in acute distress HEENT: NC/AT, PERRLA, moist oral mucosa, (-) throat erythema NECK: Soft, supple, (-) cervical LAD, (-)JVD HEART: S1S2 WNL, RRR, No MRG CHEST: CTA, BL, GAE, No W/R/R ABD: Soft, ND/NT, NABS 4x Q EXT: No C/C/E SKIN: Warm to touch PSYCH: No active psychosis, hallucinations, depression, SI/HI Objective Active Medications: Acetaminophen (Tylenol Tab*) 650 mg PO Q6H PRN PRN Reason: PAIN Last Admin: 10/24/17 09:39 Dose: 650 mg Amlodipine Besylate (Norvasc Tab*) 10 mg PO DAILY [facility] Last Admin: 10/25/17 10:03 Dose: 10 mg Calcitriol (Rocaltrol Cap*) 1 mcg PO DAILY [facility] Last Admin: 10/25/17 10:03 Dose: 1 mcg Carvedilol (Coreg Tab*) 3.125 mg PO BID [facility] Last Admin: 10/25/17 10:04 Dose: 3.125 mg Folic Acid (Folvite Tab*) 5 mg PO DAILY [facility] Last Admin: 10/25/17 10:03 Dose: 5 mg Heparin Sodium (Porcine) (Heparin Vial(*)) 5,000 units SUBCUT Q12HR [facility] Last Admin: 10/25/17 10:13 Dose: Not Given Hydroxychloroquine Sulfate (Plaquenil Tab*) 200 mg PO BID [facility] Last Admin: 10/25/17 10:04 Dose: 200 mg Piperacillin Sod/Tazobactam (Sod 2.25 gm/ Sodium Chloride) 100 mls @ 25 mls/hr IVPB Q12H [facility] Last Admin: 10/25/17 10:05 Dose: 25 mls/hr Vancomycin HCl 1,000 mg/ (Sodium Chloride) 250 mls @ 166.667 mls/hr IVPB Q72H [facility] Mupirocin (Bactroban 2 % Oint*) 1 applic TOPICAL DAILY [facility] Last Admin: 10/25/17 10:13 Dose: Not Given Omeprazole (Prilosec Cap*) 20 mg PO DAILY@0730 [facility] Last Admin: 10/25/17 07:42 Dose: 20 mg Ondansetron HCl (Zofran 40 Mg Vial*) 4 mg IV Q6H PRN PRN Reason: NAUSEA Last Admin: 10/24/17 21:52 Dose: 4 mg Oxycodone HCl (Oxycontin(*)) 10 mg PO Q12HR [facility] Last Admin: 10/25/17 10:03 Dose: 10 mg Oxycodone HCl (Roxycodone Tab*) 10 mg PO Q3H PRN PRN Reason: PAIN - SEVERE Last Admin: 10/25/17 12:19 Dose: 10 mg Patiromer (Patir) 8.4 gm PO DAILY@0600 [facility] Last Admin: 10/25/17 05:56 Dose: Not Given Pharmacy Profile Note (Vancomycin Trough Check) 1 note FOLLOW UP 0600 ONE Stop: 10/27/17 06:01 Polyethylene Glycol/Electrolytes (Miralax*) 17 gm PO DAILY PRN PRN Reason: CONSTIPATION Prazosin HCl (Minipress Cap*) 1 mg PO BID [facility] Last Admin: 10/25/17 10:03 Dose: 1 mg Prochlorperazine (Compazine Tab*) 10 mg PO Q8H PRN PRN Reason: VOMITING Last Admin: 10/24/17 17:40 Dose: 10 mg Ropinirole HCl (Requip Tab*) 0.5 mg PO BEDTIME [facility] Last Admin: 10/24/17 20:43 Dose: 0.5 mg Sevelamer Carbonate (Renvela Tab*) 2,400 mg PO AC [facility] Last Admin: 10/25/17 12:09 Dose: Not Given Tramadol HCl (Ultram*) 50 mg PO Q12H PRN PRN Reason: PAIN Last Admin: 10/21/17 16:38 Dose: 50 mg Trazodone HCl (Desyrel Tab*) 50 mg PO BEDTIME PRN PRN Reason: SLEEP Last Admin: 10/19/17 19:50 Dose: 50 mg Vital Signs - 8 hr 10/25/17 10/25/17 10/25/17 07:26 07:42 08:00 Temperature 98.4 F Pulse Rate 81 Respiratory 16 16 18 Rate Blood Pressure 120/55 (mmHg) O2 Sat by Pulse 90 92 Oximetry 10/25/17 10/25/17 10/25/17 08:20 10:03 10:13 Temperature 100.0 F Pulse Rate Respiratory 18 18 Rate Blood Pressure (mmHg) O2 Sat by Pulse Oximetry 10/25/17 10/25/17 10/25/17 10:35 10:59 12:19 Temperature 98.4 F 98.6 F Pulse Rate 86 88 Respiratory 16 Rate Blood Pressure 119/58 126/54 (mmHg) O2 Sat by Pulse 90 92 Oximetry 10/25/17 12:40 Temperature Pulse Rate Respiratory 14 Rate Blood Pressure (mmHg) O2 Sat by Pulse Oximetry Oxygen Devices in Use Now: None Result Diagrams: 10/25/17 02:42 10/25/17 02:42 Additional Lab and Data: Lab Results 10/19/17 10/19/17 Range/Units 06:38 06:38 WBC 4.4 (3.5-10.8) 10^3/ul RBC 2.48 L (4.00-5.40) 10^6/ul Hgb 8.3 L (14.0-18.0) g/dl Hct 24 L (42-52) % MCV 98 H (80-94) fL MCH 34 H (27-31) pg MCHC 34 (31-36) g/dl RDW 14 (10.5-15) % Plt Count 337 (150-450) 10^3/ul MPV 9.2 (7.4-10.4) um3 Neut % (Auto) 79.8 (38-83) % Lymph % (Auto) 11.8 L (25-47) % [place] % (Auto) 6.8 (0-7) % Eos % (Auto) 0.5 (0-6) % Baso % (Auto) 1.1 (0-2) % Absolute Neuts (auto) 3.5 (1.5-7.7) 10^3/ul Absolute Lymphs (auto) 0.5 L (1.0-4.8) 10^3/ul Absolute Monos (auto) 0.3 (0-0.8) 10^3/ul Absolute Eos (auto) 0 (0-0.6) 10^3/ul Absolute Basos (auto) 0 (0-0.2) 10^3/ul Absolute Nucleated RBC 0 10^3/ul Nucleated RBC % 0.1 INR (Anticoag Therapy) 0.97 (0.77-1.02) APTT 28.5 (26.0-36.3) seconds Microbiology and Other Data: Microbiology 10/19/17 06:50 Aerobic Blood Culture - Preliminary Blood Venous No Growth Day 1 Anaerobic Blood Culture - Preliminary No Growth Day 1 10/19/17 06:53 Aerobic Blood Culture - Preliminary Blood Venous No Growth Day 1 Anaerobic Blood Culture - Preliminary No Growth Day 1 Assess/Plan/Problems-Billing Assessment: - Patient Problems (1) Fever Current Visit: Yes Status: Acute Code(s): R50.9 - FEVER, UNSPECIFIED SNOMED Code(s): 484054631 Comment: -Unclear focus and/or reason -Cultures so far negative -Repeat cultures (-) x 1 day -CT abd/pelvis with and without contrast does not suggest any metastatic lesions -Discussed case with Dr. Zamarripa---for MR of T and L spine, non-contrast given pts GFR and risk for systemic fibrosis -Continue to follow cultures (2) ESRD (end stage renal disease) on dialysis Current Visit: No Status: Acute Code(s): N18.6 - END STAGE RENAL DISEASE; Z99.2 - DEPENDENCE ON RENAL DIALYSIS SNOMED Code(s): 640726206 Comment: -Continue PD -D/W Dr. Flores and pt can receive CT abd/pelvis with IV and PO contrast using Visipaque contrast---please see above discussion (3) Pleuritic chest pain Current Visit: Yes Status: Acute Comment: -Unclear etiology -Possibly musculoskeletal -Low probability for PE in V/Q scan -Continue watchful waiting -While troponins are mildly elevated, improved from previous days -Troponins at baseline (4) SLE (systemic lupus erythematosus) Current Visit: No Status: Acute Code(s): M32.9 - SYSTEMIC LUPUS ERYTHEMATOSUS, UNSPECIFIED SNOMED Code(s): 98008211 Comment: -Continue plaquenil. He states he saw his toy department manager in [place] about a week ago and was told his hand/foot pains are probably not due to SLE. (5) HTN (hypertension) Current Visit: No Status: Acute Code(s): I10 - ESSENTIAL (PRIMARY) HYPERTENSION SNOMED Code(s): 65401350 Comment: -BP is under good control. Continue amlodipine, carvedilol, prazosin. (6) Sepsis Current Visit: Yes Status: Acute Comment: -Improved. Continue cefepime, vanco, azith. T 101.3 10/22 08:07 hrs. Blood C&S x 2 and peritoneal fluid C&S sent 10/22. Note very high CRP. Repeat CRP, CBC< BMP 10/24. ? drug fever. (7) Myoclonus Current Visit: Yes Status: Acute Code(s): G25.3 - MYOCLONUS SNOMED Code(s) : 91636409 Comment: -Much improved after stopping gabapentin. (8) Peripheral neuropathy Current Visit: Yes Status: Acute Code(s): G62.9 - POLYNEUROPATHY, UNSPECIFIED SNOMED Code(s): 827084103 Comment: -Continue oxycontin SR 10 mg bid. Discussed with Dr. Sawyer. Inpatient nerve conduction study if personnel time available (9) DVT prophylaxis Current Visit: No Status: Acute Code(s): ROQ6366 - SNOMED Code(s): 870748873 Comment: -ambulation -SCDs at night (10) Leukocytosis Current Visit: Yes Status: Acute Code(s): D72.829 - ELEVATED WHITE BLOOD CELL COUNT, UNSPECIFIED SNOMED Code(s): 638993509 Comment: -Accompanied by fever; cultures resent; CXR shows some improvement from PNA -He mentions, however, that his urologist wanted to "scan" him as an outpatient for possible bladder CA?? -Will obtain non-contrast abd/pelvis CT Status and Disposition: -As above
--- NOTE | 2017-10-25 21:26 | RAD ---
Indication: Fever of unknown origin. History of lupus nephritis and renal cell carcinoma. Assess for metastasis. Comparison: October 25, 2017 Technique: Mango DSPa 1.5 Fiona [id number] with GEM suite. Noncontrast MRI thoracic spine. Report: Motion artifact degrades image quality. The thoracic spinal cord is normal in morphology and patterns of signal intensity. 0.8 cm T1 and T2 hyperintense lesion at the T12 vertebral body is consistent with a benign osseous hemangioma without concern. Negative for suspicious focal osseous lesions. Negative for fracture or spondylolysis at any level. Normal vertebral alignment accounting for exam positioning without spondylolisthesis or subluxation at any level. At T10-T11 there is moderate disc space narrowing and desiccation. Mild annular disc bulge is noted at T10-T11 and T12-L1 without significant resulting central canal stenosis. No inflammatory process evident in the paraspinal soft tissues. Postsurgical change of LEFT nephrectomy. The partially visualized RIGHT kidney is remarkable for innumerable cortical cysts. IMPRESSION: #. No evidence for thoracic spine bone metastasis. #. No evidence for thoracic spine discitis osteomyelitis.
[2017-10-25] MEDS: Ropinirole TAB* 0.5 MG TAB PO SCH (21:33)
--- NOTE | 2017-10-25 21:49 | RAD ---
Indication: Sepsis. History of renal cell carcinoma. Lupus nephritis. Assess for metastatic disease. Comparison: Abdomen pelvis CT of the same date. Technique: Talking Layersa 1.5 Fiona [id number] with GEM suite. Noncontrast MRI lumbar sacral spine. Report: Unremarkable conus medullaris and cauda equina. 0.5 cm T1 and T2 hyperintense lesion at the superior endplate of the L1 vertebral body is consistent with a benign osseous hemangioma. Negative for suspicious focal osseous lesions. Negative for fracture or spondylolysis at any level. Normal vertebral alignment accounting for exam positioning without spondylolisthesis or subluxation at any level. No inflammatory process evident in the paravertebral soft tissues. Innumerable cysts at the moderately atrophic RIGHT kidney. No suspicious finding at the LEFT post nephrectomy space. T11-T12: Moderate disc space narrowing and desiccation. Small posterior central disc protrusion without significant resulting acquired central canal stenosis. T12-L1: Unremarkable disc level for age without acquired spinal stenosis. L1-L2: Unremarkable disc level for age without acquired spinal stenosis. L2-L3: Unremarkable disc level for age without acquired spinal stenosis. L3-L4: Unremarkable disc level for age without acquired spinal stenosis. L4-L5: Disc desiccation. Annular disc bulge with mild resulting impression on the ventral margin of the thecal sac. Degenerative spondylosis and facet joint osteoarthritis results in mild bilateral foraminal stenosis. L5-S1: Severe disc space narrowing and desiccation. Large posterior central to LEFT foraminal disc protrusion with resulting moderate impression on the LEFT anterior margin of the thecal sac and partial effacement of the traversing LEFT S1 nerve root in the lateral recess as well as moderate LEFT foraminal stenosis with facet joint osteoarthritis contributing to the foraminal stenosis. Degenerative spondylosis and facet joint osteophyte arthritis results in mild RIGHT foraminal stenosis. IMPRESSION: #. No evidence for lumbar sacral spine bone metastasis. #. No evidence for lumbar sacral spine osteomyelitis discitis. #. Multilevel degenerative spondylosis and posterior element osteoarthritis with resulting spinal stenosis most prominent at L5-S1 as described.
[2017-10-26] MEDS: Patiromer POWDER* 8.4 GM PAK PO SCH (04:30)
[2017-10-26] MEDS: oxyCODONE TAB* 5 MG TAB PO PRN ×5 (06:05→23:59)
[2017-10-26] MEDS: Sevelamer TAB* 800 MG PO SCH ×3 (09:13→17:42)
[2017-10-26] MEDS: amLODIPine TAB* 5 MG PO SCH (09:13)
[2017-10-26] MEDS: Prazosin CAP* 1 MG PO SCH ×2 (09:14→20:04)
[2017-10-26] MEDS: Carvedilol TAB* 3.125 MG PO SCH ×2 (09:14→20:04)
[2017-10-26] MEDS: Hydroxychloroquine TAB* 200 MG PO SCH ×2 (09:14→20:04)
[2017-10-26] MEDS: Folic Acid TAB* 1 MG PO SCH (09:14)
[2017-10-26] MEDS: oxyCODONE SR TAB(*) 10 MG TAB.SR PO SCH ×2 (09:15→20:04)
[2017-10-26] MEDS: Omeprazole CAP* 20 MG PO SCH (09:16)
[2017-10-26] MEDS: Heparin VIAL(*) 5000 UNITS/ML VIAL (FIVE THOUSAND) SUBCUT SCH ×2 (09:17→20:08)
[2017-10-26] MEDS: Mupirocin 2% OINT* TUBE TOPICAL SCH (09:17)
[2017-10-26] MEDS: Calcitriol CAP* 0.25 MCG PO SCH (09:29)
[2017-10-26 10:00] LABS: Hematocrit 26 % (42-52); Hemoglobin 8.7 g/dl (14.0-18.0); Mean Corpuscular HGB Conc 34 g/dl (31-36); Mean Corpuscular Hemoglobin 33 pg (27-31); Mean Corpuscular Volume 96 fL (80-94); Mean Platelet Volume 8.2 um3 (7.4-10.4); Platelet Count 519 10^3/ul (150-450); Red Blood Count 2.68 10^6/ul (4.00-5.40); Red Cell Distribution Width 14 % (10.5-15); White Blood Count 13.3 10^3/ul (3.5-10.8)
[2017-10-26] MEDS: Piperacillin/Tazobac ADVAN(*) 2.25 GM in NS 0.9% 100 ML* 100 ML IVPB SCH (10:23)
[2017-10-26 10:35] LABS: ABS Basophils 0.1 10^3/ul (0-0.2); ABS Eosinophils 0 10^3/ul (0-0.6); ABS Lymphocytes 1.8 10^3/ul (1.0-4.8); ABS Monocytes 1.8 10^3/ul (0-0.8); ABS Neutrophils 9.7 10^3/ul (1.5-7.7); ABS Nucleated RBC 0.1 10^3/ul; Eosinophil % 0 % (0-6); Lymphocyte % 13.7 % (25-47)
--- NOTE | 2017-10-26 16:04 | PN ---
Subjective Date of Service: 10/26/17 Interval History: Pt seen and examined. Meds and labs reviewed. ROS: Denied SUGGS/dizziness, F/C, N/V, CP, SOB, increased cough, sputum production , abd pain, diarrhea, constipation, dysuria, myalgias, arthralgias, throat pain , and new skin lesions. The rest of the 14 point ROS are unremarkable. PHYSICAL EXAM: GEN APPEARANCE: Awake, not in acute distress HEENT: NC/AT, PERRLA, moist oral mucosa, (-) throat erythema NECK: Soft, supple, (-) cervical LAD, (-)JVD HEART: S1S2 WNL, RRR, No MRG CHEST: CTA, BL, GAE, No W/R/R ABD: Soft, ND/NT, NABS 4x Q EXT: No C/C/E SKIN: Warm to touch PSYCH: No active psychosis, hallucinations, depression, SI/HI Objective Active Medications: Acetaminophen (Tylenol Tab*) 650 mg PO Q6H PRN PRN Reason: PAIN Last Admin: 10/24/17 09:39 Dose: 650 mg Amlodipine Besylate (Norvasc Tab*) 10 mg PO DAILY [facility] Last Admin: 10/26/17 09:13 Dose: 10 mg Calcitriol (Rocaltrol Cap*) 1 mcg PO DAILY [facility] Last Admin: 10/26/17 09:29 Dose: 1 mcg Carvedilol (Coreg Tab*) 3.125 mg PO BID [facility] Last Admin: 10/26/17 09:14 Dose: 3.125 mg Folic Acid (Folvite Tab*) 5 mg PO DAILY [facility] Last Admin: 10/26/17 09:14 Dose: 5 mg Heparin Sodium (Porcine) (Heparin Vial(*)) 5,000 units SUBCUT Q12HR [facility] Last Admin: 10/26/17 09:17 Dose: Not Given Hydroxychloroquine Sulfate (Plaquenil Tab*) 200 mg PO BID [facility] Last Admin: 10/26/17 09:14 Dose: 200 mg Piperacillin Sod/Tazobactam (Sod 2.25 gm/ Sodium Chloride) 100 mls @ 25 mls/hr IVPB Q12H [facility] Last Admin: 10/26/17 10:23 Dose: 25 mls/hr Vancomycin HCl 1,000 mg/ (Sodium Chloride) 250 mls @ 166.667 mls/hr IVPB Q72H [facility] Mupirocin (Bactroban 2 % Oint*) 1 applic TOPICAL DAILY [facility] Last Admin: 10/26/17 09:17 Dose: Not Given Omeprazole (Prilosec Cap*) 20 mg PO DAILY@0730 [facility] Last Admin: 10/26/17 09:16 Dose: 20 mg Ondansetron HCl (Zofran 40 Mg Vial*) 4 mg IV Q6H PRN PRN Reason: NAUSEA Last Admin: 10/24/17 21:52 Dose: 4 mg Oxycodone HCl (Oxycontin(*)) 10 mg PO Q12HR [facility] Last Admin: 10/26/17 09:15 Dose: 10 mg Oxycodone HCl (Roxycodone Tab*) 10 mg PO Q3H PRN PRN Reason: PAIN - SEVERE Last Admin: 10/26/17 15:49 Dose: 10 mg Patiromer (Patir) 8.4 gm PO DAILY@0600 [facility] Last Admin: 10/26/17 04:30 Dose: Not Given Pharmacy Profile Note (Vancomycin Trough Check) 1 note FOLLOW UP 0600 ONE Stop: 10/27/17 06:01 Polyethylene Glycol/Electrolytes (Miralax*) 17 gm PO DAILY PRN PRN Reason: CONSTIPATION Prazosin HCl (Minipress Cap*) 1 mg PO BID [facility] Last Admin: 10/26/17 09:14 Dose: 1 mg Prochlorperazine (Compazine Tab*) 10 mg PO Q8H PRN PRN Reason: VOMITING Last Admin: 10/24/17 17:40 Dose: 10 mg Ropinirole HCl (Requip Tab*) 0.5 mg PO BEDTIME [facility] Last Admin: 10/25/17 21:33 Dose: 0.5 mg Sevelamer Carbonate (Renvela Tab*) 2,400 mg PO AC [facility] Last Admin: 10/26/17 12:30 Dose: 2,400 mg Trazodone HCl (Desyrel Tab*) 50 mg PO BEDTIME PRN PRN Reason: SLEEP Last Admin: 10/19/17 19:50 Dose: 50 mg Vital Signs - 8 hr 10/26/17 10/26/17 10/26/17 08:05 08:23 09:15 Temperature 98.0 F Pulse Rate 86 Respiratory 16 19 20 Rate Blood Pressure 125/54 (mmHg) O2 Sat by Pulse 88 Oximetry 10/26/17 10/26/17 10/26/17 09:31 11:15 11:35 Temperature 98.8 F Pulse Rate 87 Respiratory 20 18 17 Rate Blood Pressure 124/58 (mmHg) O2 Sat by Pulse 95 Oximetry 10/26/17 10/26/17 12:31 15:49 Temperature Pulse Rate Respiratory 18 20 Rate Blood Pressure (mmHg) O2 Sat by Pulse Oximetry Oxygen Devices in Use Now: None Result Diagrams: 10/26/17 09:41 10/26/17 09:41 Additional Lab and Data: Lab Results 10/19/17 10/19/17 Range/Units 06:38 06:38 WBC 4.4 (3.5-10.8) 10^3/ul RBC 2.48 L (4.00-5.40) 10^6/ul Hgb 8.3 L (14.0-18.0) g/dl Hct 24 L (42-52) % MCV 98 H (80-94) fL MCH 34 H (27-31) pg MCHC 34 (31-36) g/dl RDW 14 (10.5-15) % Plt Count 337 (150-450) 10^3/ul MPV 9.2 (7.4-10.4) um3 Neut % (Auto) 79.8 (38-83) % Lymph % (Auto) 11.8 L (25-47) % [place] % (Auto) 6.8 (0-7) % Eos % (Auto) 0.5 (0-6) % Baso % (Auto) 1.1 (0-2) % Absolute Neuts (auto) 3.5 (1.5-7.7) 10^3/ul Absolute Lymphs (auto) 0.5 L (1.0-4.8) 10^3/ul Absolute Monos (auto) 0.3 (0-0.8) 10^3/ul Absolute Eos (auto) 0 (0-0.6) 10^3/ul Absolute Basos (auto) 0 (0-0.2) 10^3/ul Absolute Nucleated RBC 0 10^3/ul Nucleated RBC % 0.1 INR (Anticoag Therapy) 0.97 (0.77-1.02) APTT 28.5 (26.0-36.3) seconds Microbiology and Other Data: Microbiology 10/19/17 06:50 Aerobic Blood Culture - Preliminary Blood Venous No Growth Day 1 Anaerobic Blood Culture - Preliminary No Growth Day 1 10/19/17 06:53 Aerobic Blood Culture - Preliminary Blood Venous No Growth Day 1 Anaerobic Blood Culture - Preliminary No Growth Day 1 Assess/Plan/Problems-Billing Assessment: - Patient Problems (1) Fever Current Visit: Yes Status: Acute Code(s): R50.9 - FEVER, UNSPECIFIED SNOMED Code(s): 128644248 Comment: -Unclear focus and/or reason -Cultures so far negative -Repeat cultures (-) x 2 day -No fevers O/N -MRI of L&T spine does not show any focus of infection or metastatic lesions; it reveals some osteoarthritis, however -CT abd/pelvis with and without contrast does not suggest any metastatic lesions -Discussed case with Dr. Zamarripa---for MR of T and L spine, non-contrast given pts GFR and risk for systemic fibrosis -Continue to follow cultures -D/C'd Zosyn and Vancomycin (2) ESRD (end stage renal disease) on dialysis Current Visit: No Status: Acute Code(s): N18.6 - END STAGE RENAL DISEASE; Z99.2 - DEPENDENCE ON RENAL DIALYSIS SNOMED Code(s): 291207654 Comment: -Continue PD -D/W Dr. Flores and pt can receive CT abd/pelvis with IV and PO contrast using Visipaque contrast---please see above discussion (3) Pleuritic chest pain Current Visit: Yes Status: Acute Comment: -Resolved -Unclear etiology -Possibly musculoskeletal -Low probability for PE in V/Q scan -Continue watchful waiting -While troponins are mildly elevated, improved from previous days -Troponins at baseline (4) SLE (systemic lupus erythematosus) Current Visit: No Status: Acute Code(s): M32.9 - SYSTEMIC LUPUS ERYTHEMATOSUS, UNSPECIFIED SNOMED Code(s): 07604114 Comment: -Continue plaquenil. He states he saw his motorboat mechanic inboard/outboard in [place] about a week ago and was told his hand/foot pains are probably not due to SLE. (5) HTN (hypertension) Current Visit: No Status: Acute Code(s): I10 - ESSENTIAL (PRIMARY) HYPERTENSION SNOMED Code(s): 72479495 Comment: -BP is under good control. Continue amlodipine, carvedilol, prazosin. (6) Myoclonus Current Visit: Yes Status: Acute Code(s): G25.3 - MYOCLONUS SNOMED Code(s) : 28322153 Comment: -Much improved after stopping gabapentin. (7) Peripheral neuropathy Current Visit: Yes Status: Acute Code(s): G62.9 - POLYNEUROPATHY, UNSPECIFIED SNOMED Code(s): 635745259 Comment: -Continue oxycontin SR [address] bid. Discussed with Dr. Sawyer. Inpatient nerve conduction study if personnel time available (8) DVT prophylaxis Current Visit: No Status: Acute Code(s): XMM1121 - SNOMED Code(s): 708379496 Comment: -ambulation -SCDs at night (9) Leukocytosis Current Visit: Yes Status: Acute Code(s): D72.829 - ELEVATED WHITE BLOOD CELL COUNT, UNSPECIFIED SNOMED Code(s): 161466837 Comment: -Accompanied by fever; cultures resent; CXR shows some improvement from PNA -He mentions, however, that his urologist wanted to "scan" him as an outpatient for possible bladder CA?? -Resolved---please see above discussion Status and Disposition: -If afebrile O/N and cultures continue to remain negative by tomorrow, will D/C home
[2017-10-26] MEDS: Prochlorperazine TAB* 10 MG PO PRN (20:04)
[2017-10-26] MEDS: Ropinirole TAB* 0.5 MG TAB PO SCH (20:04)
[2017-10-27] MEDS: oxyCODONE TAB* 5 MG TAB PO PRN ×2 (03:22→08:20)
[2017-10-27] MEDS: Patiromer POWDER* 8.4 GM PAK PO SCH (04:51)
[2017-10-27] MEDS ORDERED: Vancomycin Trough Check NOTE FOLLOW UP ONE (06:00)
[2017-10-27 07:11] LABS: Hematocrit 28 % (42-52); Hemoglobin 9.1 g/dl (14.0-18.0); Mean Corpuscular HGB Conc 33 g/dl (31-36); Mean Corpuscular Hemoglobin 32 pg (27-31); Mean Corpuscular Volume 96 fL (80-94); Mean Platelet Volume 8.3 um3 (7.4-10.4); Platelet Count 578 10^3/ul (150-450); Red Blood Count 2.89 10^6/ul (4.00-5.40); Red Cell Distribution Width 14 % (10.5-15)
[2017-10-27 07:21] LABS: ABS Basophils 0.1 10^3/ul (0-0.2); ABS Eosinophils 0 10^3/ul (0-0.6); ABS Lymphocytes 2.2 10^3/ul (1.0-4.8); ABS Nucleated RBC 0.1 10^3/ul; Eosinophil % 0 % (0-6); Lymphocyte % 17.3 % (25-47); Nucleated Red Blood Cells % 0.9
[2017-10-27 07:22] LABS: ABS Monocytes 1.6 10^3/ul (0-0.8)
[2017-10-27] MEDS: Folic Acid TAB* 1 MG PO SCH (08:18)
[2017-10-27] MEDS: Calcitriol CAP* 0.25 MCG PO SCH (08:18)
[2017-10-27] MEDS: Sevelamer TAB* 800 MG PO SCH ×3 (08:18→13:12)
[2017-10-27] MEDS: amLODIPine TAB* 5 MG PO SCH (08:19)
[2017-10-27] MEDS: Carvedilol TAB* 3.125 MG PO SCH (08:19)
[2017-10-27] MEDS: Prazosin CAP* 1 MG PO SCH (08:19)
[2017-10-27] MEDS: Hydroxychloroquine TAB* 200 MG PO SCH (08:19)
[2017-10-27] MEDS: Omeprazole CAP* 20 MG PO SCH (08:19)
[2017-10-27] MEDS: oxyCODONE SR TAB(*) 10 MG TAB.SR PO SCH (08:20)
[2017-10-27] MEDS: Heparin VIAL(*) 5000 UNITS/ML VIAL (FIVE THOUSAND) SUBCUT SCH (08:21)
[2017-10-27] MEDS: Mupirocin 2% OINT* TUBE TOPICAL SCH (08:21)
[2017-10-27] MEDS ORDERED: Vancomycin(*) 1,000 MG in NS 0.9% 250 ML* 250 ML IVPB SCH (10:00)
[2017-10-27 12:22] VITALS: BP 117/52
--- NOTE | 2017-10-28 06:42 | DS ---
CC: Dr. Nery Mixon; Allen Smith MD; Levi Zamarripa MD; Bandar Ureña MD; Dr. Mirza Valentine DISCHARGE SUMMARY: DATE OF ADMISSION: DATE OF DISCHARGE: 10/27/17 DISCHARGE DIAGNOSES: As follows: 1. Pneumonia with sepsis, resolved, pneumonia completely treated. 2. Pleuritic chest pain of unknown etiology, resolved. 3. Fever of unclear etiology after completion of antibiotic therapy and improvement of pneumonia. 4. End-stage renal disease, on peritoneal dialysis. 5. Pleuritic chest pain of unclear etiology, resolved, low probability pulmonary embolism in V/Q scan. 6. History of systemic lupus erythematosus. 7. Hypertension. 8. Myoclonus. 9. Peripheral neuropathy. DISCHARGE MEDICATIONS: As follows: 1. Tylenol 650 mg p.o. q.6 p.r.n. 2. Amlodipine 10 mg p.o. daily. 3. Calcitriol 1 mcg p.o. daily. 4. Carvedilol 3.125 mg p.o. b.i.d. 5. Cetirizine 5 mg p.o. daily. 6. Colace 100 mg p.o. b.i.d. for 30 days. 7. Folic acid 5 mg p.o. daily. 8. Gabapentin 200 mg p.o. t.i.d. 9. Hydroxychloroquine 200 mg p.o. b.i.d. 10. Hydroxyzine HCl tab 25 mg p.o. t.i.d. 11. Methylphenidate 10 mg p.o. daily. 12. Mupirocin 2% ointment 1 application topically daily for 10 days. 13. Omeprazole 20 mg p.o. daily. 14. Oxycodone 10 mg p.o. q.12 hours for 5 days. 15. Oxycodone tablet 5 mg p.o. q.8 hours p.r.n., which was clarified with the pharmacist. 16. Patiromer calcium sorbitex 8.4 g p.o. daily. 17. Prazosin 1 mg cap p.o. b.i.d. 18. Prochlorperazine 10 mg p.o. q.8 hours p.r.n. 19. Ropinirole 0.5 mg p.o. q.h.s. 20. Sertraline 75 mg p.o. daily. 21. Sevelamer 2400 mg p.o. q.a.c. 22. Trazodone 50 mg p.o. q.h.s. HISTORY OF PRESENT ILLNESS/HOSPITAL COURSE: The patient is a 32-year-old gentleman with a history of lupus and lupus pericarditis, nephritis, and end-stage renal disease, on peritoneal dialysis, who presented on 10/19/17 to our facility and was subsequently diagnosed to have pneumonia with sepsis. He was subsequently seen by Dr. Zamarripa in consultation who recommended 5 days of vanco, cefepime, and azithromycin which she has finished and he was relatively doing well until he had another bout of fever with pleuritic chest pain on 10/24/17 for which repeat troponins did not suggest an increased elevation of troponin and mild elevation of troponin on presentation was thought to be secondary to his sepsis as well as his renal failure with a peak of only 0.30. When he subsequently complained of chest pain on 10/24/17, it had remained at 0.05 x3 and likely more reflective of his chronic renal disease rather than a philip iron type 2 CT. He was also sent for a V/Q scan, which showed low probability PE. Subsequent repeat cultures were negative. Repeat cultures on 10/24/17 showed no growth as well as previous cultures. His urine antigen was negative for Legionella as well as a Strep pneumonia. His case was rediscussed with Dr. Zamarripa who in fact recommended discontinuation of the Zosyn and vancomycin that he had been placed for at least a day given he has completed his initially recommended IV antibiotics and hence this was discontinued the day prior to his discharge and he was further observed without antibiotics without any subsequent febrile episodes, chills nor any other complaints. Given his history of renal cell CA, S/P nephrectomy, he also was sent for CT of abd/pelvis which did not reveal any metastatic lesions. Lumar and thoracic MRI likewise did not reveal any concerning lesions that would explain his fever. It was thought that his fever on 10/24/17 was due to drug induced fever possibly by Cefepime given above evidence. He did have some evidence of osteoarthritis on his lumbar MRI. He had been advised to follow up with his primary care physician and neurologist for his neuropathy given this is a chronic problem for him. He was also advised to follow up/call his PCP within 3 days post discharge to schedule an appointment [facility]. In the event that he feels unwell prior to his scheduled appointment with his PCP, he was advised to call his PCP's office to see if he can be seen sooner. If not, he was advised to contact [facility] for evaluation. He was advised to contact his PCP for any refills in his pain medications. He was advised to take his medications as prescribed. PHYSICAL EXAMINATION: Reveals the most recent vital signs of records with blood pressure of 117/52, temperature 98.5 degrees Fahrenheit, 92 beats per minute heart rate, 16 per minute respiratory rate, saturating at 97% on room air. General Appearance: The patient is awake, alert, and oriented x3, not in acute distress. HEENT: Normocephalic, atraumatic. PERRLA. Extraocular muscles intact. Negative for icterus. Moist oral mucosa. Negative throat erythema. Neck is soft, supple with no cervical lymphadenopathy. No JVD. Heart: S1, S2 within normal limits. Regular rate and rhythm. No murmurs, rubs , and gallops. Chest: Clear to auscultation bilaterally. Good air entry. No wheezes, rales, or rhonchi. Abdomen is soft, nondistended, nontender. Normoactive bowel sounds x4. Extremities: No cyanosis, clubbing, or edema. Psychiatric: No active psychosis, depression, suicidal nor homicidal ideations. Skin is warm to touch with some excoriations dispersed throughout his body where he mentioned that he has been having some pruritus since April likely due to his renal failure while on peritoneal dialysis concomitant with opiate use. He was advised to take hydroxyzine 25 mg p.o. t.i.d. p.r.n. for his pruritus. TIME SPENT: The total time spent evaluating the patient, reviewing pertinent data, and appropriate documentation is greater than 30 minutes. [id number]/[facility] #: [id number] MTDD
== END 2017-10-27 14:30 | disposition home health service (06) | DRG 871 ==
LOC: ED 06:13 → MED 08:37
PROVIDERS: ADMIT Hospitalist; ATTEND Student in an Organized Health Care Education/Training Program
PROC: 3E1M39Z Irrigation of Peritoneal Cavity using Dialysate, Percutaneous Approach (ICD-10-PCS; principal; 2017-10-19)
PROC: 30233N1 Transfusion of Nonautologous Red Blood Cells into Peripheral Vein, Percutaneous Approach (ICD-10-PCS; 2017-10-25)
DX: A41.9 Sepsis, unspecified organism (principal); J18.9 Pneumonia, unspecified organism; N18.6 End stage renal disease; J96.01 Acute respiratory failure with hypoxia; I12.0 Hypertensive chronic kidney disease with stage 5 chronic kidney disease or end stage renal disease; R07.81 Pleurodynia; M32.9 Systemic lupus erythematosus, unspecified; G25.3 Myoclonus; G62.9 Polyneuropathy, unspecified; M47.9 Spondylosis, unspecified; R50.2 Drug induced fever; T36.1X5A Adverse effect of cephalosporins and other beta-lactam antibiotics, initial encounter; Y92.239 Unspecified place in hospital as the place of occurrence of the external cause; F41.9 Anxiety disorder, unspecified; F32.9 Major depressive disorder, single episode, unspecified; J45.909 Unspecified asthma, uncomplicated; R40.2363 Coma scale, best motor response, obeys commands, at hospital admission; R40.2143 Coma scale, eyes open, spontaneous, at hospital admission; R40.2253 Coma scale, best verbal response, oriented, at hospital admission; R65.20 Severe sepsis without septic shock; R74.8 Abnormal levels of other serum enzymes; M32.14 Glomerular disease in systemic lupus erythematosus; D63.1 Anemia in chronic kidney disease; Z99.2 Dependence on renal dialysis; Z85.528 Personal history of other malignant neoplasm of kidney; Z90.5 Acquired absence of kidney; Z90.81 Acquired absence of spleen; Z88.8 Allergy status to other drugs, medicaments and biological substances; Z83.3 Family history of diabetes mellitus; Z82.3 Family history of stroke; Z83.49 Family history of other endocrine, nutritional and metabolic diseases; Z82.0 Family history of epilepsy and other diseases of the nervous system; Z82.49 Family history of ischemic heart disease and other diseases of the circulatory system; Z87.891 Personal history of nicotine dependence; Z92.21 Personal history of antineoplastic chemotherapy; Z56.0 Unemployment, unspecified
CPT/HCPCS: 36415; 71045; 71046; 72146; 72148; 74176; 74177; 78582; 80048; 80053; 80202; 82140; 82550; 82553; 83605; 83735; 84100; 84145; 84484; 85025; 85027; 85610; 85730; 86140; 86618; 86850; 86900; 86901; 86922; 87040; 87086; 87205; 87899; 89051; 90945; 93005; 93970; 99283; A9270-GY; A9540; A9558; G0257; J0456; J0692; J0885; J1644; J2060; J2270; J2543; J3370; P9040; Q0164; Q9967

== ENCOUNTER 2017-11-01 08:18 | Observation (INO) | payer MEDICAID, MEDICARE ==
[2017-11-01] MEDS ORDERED: Azithromycin IV(*) 500 MG in NS 0.9% 250 ML* 250 ML IVPB ONE (08:27)
[2017-11-01] MEDS ORDERED: cefTRIAXone(*) 1 GM in NS 0.9% 50 ML* 50 ML IVPB ONE (08:27)
[2017-11-01 09:01] LABS: ABS Basophils 0.1 10^3/ul (0-0.2); ABS Eosinophils 0 10^3/ul (0-0.6); ABS Lymphocytes 1.4 10^3/ul (1.0-4.8); ABS Monocytes 1.1 10^3/ul (0-0.8); ABS Neutrophils 9.1 10^3/ul (1.5-7.7); ABS Nucleated RBC 0 10^3/ul; Eosinophil % 0 % (0-6); Hematocrit 26 % (42-52); Hemoglobin 8.8 g/dl (14.0-18.0); Lymphocyte % 12.1 % (25-47); Mean Corpuscular HGB Conc 33 g/dl (31-36); Mean Corpuscular Hemoglobin 32 pg (27-31); Mean Corpuscular Volume 95 fL (80-94); Nucleated Red Blood Cells % 0.1; Platelet Count 794 10^3/ul (150-450); Red Blood Count 2.78 10^6/ul (4.00-5.40); Red Cell Distribution Width 14 % (10.5-15); White Blood Count 11.7 10^3/ul (3.5-10.8)
[2017-11-01 09:12] LABS: INR 1.1 (0.77-1.02)
[2017-11-01 09:19] LABS: EGFR Non-African American 3.7 (>60)
--- NOTE | 2017-11-01 09:21 | RAD ---
HISTORY: ESRD, CP, SOB, recent PNA COMPARISONS: October 24, 2017 VIEWS: 1: frontal portable view of the chest at 9:05 AM FINDINGS: LINES AND TUBES: None. CARDIOMEDIASTINAL SILHOUETTE: The cardiomediastinal silhouette is normal for portable technique. PLEURA: The costophrenic angles are sharp. No pleural abnormalities are noted. LUNG PARENCHYMA: The lungs are clear. ABDOMEN: The upper abdomen is clear. There is no subphrenic gas. BONES AND SOFT TISSUES: No bone or soft tissue abnormalities are noted. IMPRESSION: NO ACTIVE CARDIOPULMONARY DISEASE.
[2017-11-01] MEDS ORDERED: traZODone TAB* 50 MG TAB PO PRN (13:25)
[2017-11-01] MEDS ORDERED: Methylphenidate TAB* 10 MG PO PRN (13:25)
[2017-11-01] MEDS ORDERED: hydrOXYzine HCL TAB* 25 MG PO PRN (13:25)
[2017-11-01] MEDS ORDERED: Prochlorperazine TAB* 10 MG PO PRN (13:25)
[2017-11-01] MEDS ORDERED: methylPREDNISolone SOD 40 MG* 1 ML VIAL IV ONE (13:31)
[2017-11-01] MEDS ORDERED: Gabapentin CAP(*) 100 MG PO SCH (14:00)
--- NOTE | 2017-11-01 15:07 | ECHO ---
Patient: ANGIE KAPOOR [facility] Rec#: [id number] : 1985 Date: 11/01/2017 Age: 32y Weight: kg / NaN lbs Sex: M Room#: ED9 Admit Date#: 11/01/2017 Type: Inpatient Referring: Maddy Taylor MD Reading: Tito Hill MD Staffing Manager: Nolvia Martin [facility] Transthoracic Echocardiogram Indication: CP BP: 109/64 HR: 77 Rhythm: NSR Findings History: ESRD,renal cancer,smoker,prior pericarditis,HTN. Technical Comments: The study quality is good. Completed at 1214. Left Ventricle: The left ventricular chamber size is normal. Moderate concentric left ventricular hypertrophy is observed. Global left ventricular wall motion and contractility are within normal limits. There is normal left ventricular systolic function. The estimated ejection fraction is 60-65%. There is no consistent Doppler evidence of clinically significant diastolic dysfunction. Left Atrium: The left atrium is mildly dilated. Right Ventricle: The right ventricular cavity size is normal. The right ventricular global systolic function is normal. Right Atrium: The right atrial cavity size is normal. A prominent eustachian valve is noted in the right atrium. Aortic Valve: The aortic valve is trileaflet. There is no evidence of aortic valve thickening. There is no evidence of aortic regurgitation. There is no evidence of aortic stenosis. Mitral Valve: The mitral valve leaflets are mildly thickened. There is mild to moderate mitral regurgitation. There is no evidence of mitral stenosis. Tricuspid Valve: The tricuspid valve leaflets are normal. There is trace tricuspid regurgitation. Unable to estimate the right ventricular systolic pressure. There is no tricuspid stenosis. Pulmonic Valve: The pulmonic valve appears normal. There is trace to mild pulmonic regurgitation. There is no pulmonic stenosis. Pericardium: The pericardium appears normal. Aorta: There is no dilatation of the ascending aorta. There is no dilatation of the aortic arch. There is no dilation of the aortic root. Pulmonary Artery: The main pulmonary artery appears normal. Venous: The venous system is not well visualized. Summary: There are no significant changes when compared to the previous study done on 07/27/16 Conclusions Global left ventricular wall motion and contractility are within normal limits. There is normal left ventricular systolic function. The estimated ejection fraction is 60-65%. There is no evidence of aortic stenosis. There is mild to moderate mitral regurgitation. There is trace tricuspid regurgitation. Unable to estimate the right ventricular systolic pressure. The pericardium appears normal. There are no significant changes when compared to the previous study done on 07/27/16 Measurements Name Value Normal Range RVIDd (AP) 2D 3.8 cm (0.9 - 2.6) RVDdMajor (2D) 3.8 cm (2.2 - 4.4) RAd ISD 4CH 3.8 cm (3.4 - 4.9) RA (A4C)W 6.3 cm (2.9 - 4.6) IVSd (2D) 1.4 cm (0.6 - 1) LVPWd (2D) 1.5 cm (0.6 - 1) LVIDd (2D) 5.4 cm (3.6 - 5.4) LVIDs (2D) 4.1 cm - LV FS (2D) 46 % (25 - 45) Aortic Annulus 2.3 cm (1.4 - 2.6) Ao root diameter (2D) 3.3 cm (2.1 - 3.5) Ascending Ao 3.2 cm (2.1 - 3.4) Aortic arch 2.9 cm (1.8 - 3.4) LA dimension (AP) 2D 4.3 cm (2.3 - 3.8) LAd ISD 4CH 5.9 cm (2.9 - 5.3) LA ISD 4CH W 4.7 cm (2.5 - 4.5) Name Value Normal Range LA ESV SP 4CH (A/L) 34 ml - LA ESV SP 2CH (A/L) 30 ml - LA ESV BP (A/L) index 34 ml/m2 - Name Value Normal Range MV E-wave Vmax 0.9 m/sec - MV deceleration time 165 msec - MV A-wave Vmax 0.6 m/sec - MV E:A ratio 1.39 ratio - LV septal e' Vmax 0.08 m/sec - LV lateral e' Vmax 0.11 m/sec - LV E:e' septal ratio 11.25 ratio - LV E:e' lateral ratio 8.18 ratio - Name Value Normal Range AV Vmax 1.5 m/sec - AV VTI 26.2 cm - AV peak gradient 9 mmHg - AV mean gradient 5 mmHg - LVOT Vmax 1.1 m/sec - LVOT VTI 19.9 cm - LVOT peak gradient 5 mmHg - LVOT mean gradient 2 mmHg - Name Value Normal Range PV Vmax 1.6 m/sec - PV peak gradient 10 mmHg -
[2017-11-01 15:26] VITALS: BP 127/67
[2017-11-01] MEDS ORDERED: Sevelamer TAB* 800 MG PO SCH (16:30)
--- NOTE | 2017-11-01 18:19 | ED ---
Robb Ibrahim SooYoung, scribed for Maddy Taylor MD on 11/01/17 at 0831 . HPI Chest Pain - HPI Summary HPI Summary: A 32 y/o M presents to ED [facility] with c/o mid-sternal CP onset yesterday afternoon approx 1400. Pain is radiating to R shoulder. 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 Associated sx: SOB, fatigue, dizziness, decreased appetite, nausea, mild productive cough, fever, chills. Pt states generalized L-sided numbness. Pt took Tylenol a few hours [employer] INSTALLATION HEL[employer] to mild relief. Pt has mild pruritic rash on his neck and extremities that have been present since leaving the hospital. PMHx: lupus, kidney CA, ESRD on peritoneal dialysis since 2016, PNA with admission and dispo 10/27/17. SHx: splenectomy, L nephrectomy. Fistula present on LUE. Catheter present. Pt lives alone, does home exchanges and does a cycler exchange at night. He describes the contents as appearing foamy. States he has stopped taking his BP meds since being d/c from [facility] and it has been low recently. Pt sees Dr. Flores, nephrology. Sees Dr. Astudillo, rheumotology, at [facility]. Dr. Valentine in [place] is PCP. Allergies noted. Home Medications Medication Instructions Recorded Confirmed Type Hydroxychloroquine TAB* [Plaquenil 200 mg PO BID 06/14/16 10/19/17 History TAB*] Sertraline* [Zoloft*] 75 mg PO DAILY 07/26/16 10/19/17 History amLODIPine TAB* [Norvasc 5 mg TAB*] 10 mg PO DAILY 07/26/16 10/19/17 History Sevelamer TAB* [Renvela TAB*] 2,400 mg PO AC 08/16/16 10/19/17 History Calcitriol 1 mcg PO DAILY 08/06/17 10/19/17 History Carvedilol TAB* [Coreg TAB*] 3.125 mg PO BID 08/06/17 10/19/17 History Cetirizine* [ZyrTEC 10 MG TAB*] 5 mg PO DAILY 08/06/17 10/19/17 History Methylphenidate TAB* [Ritalin TAB*] 10 mg PO DAILY PRN 08/06/17 10/19/17 History Omeprazole CAP* [Prilosec CAP* 20 20 mg PO DAILY 08/06/17 10/19/17 History MG] Patiromer Calcium Sorbitex 8.4 gm PO DAILY 08/06/17 10/19/17 History [Veltassa] Prazosin CAP* [Minipress CAP*] 1 mg PO BID 08/06/17 10/19/17 History traZODone TAB* [Desyrel TAB*] 50 mg PO BEDTIME PRN 08/06/17 10/19/17 History Prochlorperazine TAB* [Compazine 10 mg PO Q8H PRN #10 tab 08/12/17 10/19/17 Rx Tab*] Folic Acid TAB* [Folvite TAB*] 5 mg PO DAILY 10/19/17 10/19/17 History Gabapentin CAP(*) [Neurontin 100 200 mg PO TID 10/19/17 10/19/17 History mg CAP(*)] Ropinirole TAB* [Requip TAB*] 0.5 mg PO BEDTIME 10/19/17 10/19/17 History Acetaminophen TAB* [Tylenol TAB*] 650 mg PO Q6H PRN tab 10/27/17 Rx Docusate CAP* [Colace Cap*] 100 mg PO BID 30 Days #60 cap 10/27/17 Rx Mupirocin 2% OINT* [Bactroban 2 % 1 applic TOPICAL DAILY 10 Days #1 10/27/17 Rx Oint*] tube hydrOXYzine HCL TAB* [Atarax 25 MG 25 mg PO TID PRN 5 Days #10 tab 10/27/17 Rx TAB*] oxyCODONE SR TAB(*) [Oxycontin 10 10 mg PO Q12HR 5 Days #10 tab.sr 10/27/17 Rx mg (*)] MDD 2 oxyCODONE TAB* [Roxycodone TAB 5 10 mg PO Q8H PRN #10 tab MDD 3 10/27/17 Rx mg*] - History of Current Complaint Hx Obtained From: Patient Onset/Duration: Started Hours Ago, Atraumatic, Still Present Timing: Intermittent Initial Severity: Moderate Current Severity: Severe - intermittently Pain Intensity: 9 - pleuritic CP on inspiration Pain Scale Used: 0-10 Numeric Chest Pain Location: Mid Sternal Chest Pain Radiates: Yes Chest Pain Radiates To:: Shoulder - R Character: Dull/Aching Aggravating Factor(s): Deep Breaths Alleviating Factor(s): OTC Meds - Tylenol Associated Signs and Symptoms: Positive: Vision Changes - diplopia, Numbness - lips; generalized L-sided, Dizziness, Shortness of Breath - fatigue, rash, decreased appetite,, Fever, Chills, Nausea, Productive Cough - mild, Other: - fatigue, rash - Additional Pertinent History Primary Care Physician: TYREE - Allergy/Home Medications Allergies/Adverse Reactions: Allergies Allergy/AdvReac Type Severity Reaction Status Date / Time hydralazine Allergy Intermediate Shortness Verified 08/06/17 15:05 of Breath prednisone Allergy Hallucinati Verified 08/06/17 15:05 ons Home Medications: Home Medications Bumetanide TAB* [Bumex 1 MG TAB*] 1 mg PO DAILY 11/01/17 [History Confirmed 07/17] Mycophenolate Sodium [Mycophenolic Acid] 720 mg PO BID 11/01/17 [History Confirmed 11/01/17] PMH/Surg Hx/FS Hx/Imm Hx Previously Healthy: No Endocrine/Hematology History: Reports: Hx Systemic Lupus Erythematosus Denies: Hx Diabetes, Hx Thyroid Disease Cardiovascular History: Reports: Hx Hypertension, Other Cardiovascular Problems/ Disorders - Hx LUPUS Denies: Hx Pacemaker/ICD, Hx Peripheral Vascular Disease Respiratory History: Reports: Hx Asthma, Hx Seasonal Allergies, Other Respiratory Problems/Disorders - Hx pleurisy. History: Reports: Hx Dialysis - CURRENT, Hx Renal Disease, Other Problems/ Disorders - Kidney cancer, unilateral nephrectomy Musculoskeletal History: Reports: Other Musculoskeletal History - Lupus: generlized pain Denies: Hx Arthritis, Hx Osteoporosis Sensory History: Reports: Hx Contacts or Glasses Denies: Hx Hearing Aid Opthamlomology History: Reports: Hx Contacts or Glasses Neurological History: Reports: Other Neuro Impairments/Disorders - Nerve pain - generalized, undiagnosed Denies: Hx Seizures, Hx Transient Ischemic Attacks (TIA) Psychiatric History: Reports: Hx Anxiety, Hx Panic Disorder - Cancer History Cancer Type, Location and Year: Kidney cancer, September 2014 in [place]. Hx Chemotherapy: Yes - For lupus. - Surgical History Surgery Procedure, Year, and Place: Nephrectomy, splenectomy, Inguinal hernia repaired, multiple fistula placements Hx Anesthesia Reactions: No Infectious Disease History: Reports: Hx of Known/Suspected MRSA - Family History Known Family History: Positive: Hypertension, Diabetes, Other - lupus - Social History Occupation: Unemployed Lives: Alone Alcohol Use: None Hx Substance Use: No Substance Use Type: Reports: None Hx Tobacco Use: Yes Smoking Status (MU): Former Smoker Type: Cigarettes Amount Used/How Often: 5-10 cigs per day for 15 years until quit Length of Time of Smoking/Using Tobacco: 15 years Have You Smoked in the Last Year: Yes Review of Systems Positive: Fever, Chills, Fatigue, Other - decreased appetite Positive: Diplopia Positive: Chest Pain Positive: Shortness Of Breath, Cough - mild Positive: Nausea, Other Positive: Rash Neurological: Other - pos: dizziness Positive: Numbness - lips; generalized L-sided All Other Systems Reviewed And Are Negative: Yes Physical Exam - Summary Physical Exam Summary: Appearance: Ill appearing, moderate pain distress, well-nourished Skin: Warm, pale, dry, multiple excoriated lesions from neck to extremities Head: Normal Head/Face inspection, atraumatic Eyes: Conjunctiva clear, PERRL, EOMI, no nystagmus ENT: Dry mucosa Neck: Supple, no nodes, no JVD Respiratory: Lungs clear, normal breath sounds, no respiratory distress Cardio: RRR, No murmur, pulses normal, brisk capillary refill, no rub, no gallop Abdomen: Soft, nontender, peritoneal dialysis catheter in place, insertion site nontender, no redness or drainage Bowel sounds: Present Musculoskeletal: Strength Intact/ROM intact, no calf tenderness, no edema, fistula LUE with good thrill and bruit Psychological: Normal Neuro: A&O x3, CN II-XII intact, motor function 5/5, sensation intact, cerebellar normal, visual diaz intact by confrontation, no double vision in single eye or both eyes with or without glasses. Triage Information Reviewed: Yes Vital Signs Reviewed: Yes Diagnostics - Laboratory Result Diagrams: 11/01/17 08:52 11/01/17 08:52 Lab Statement: Any lab studies that have been ordered have been reviewed, and results considered in the medical decision making process. - Radiology CXR Xray Interpretation: No Acute Changes - IMPRESSION: No active cardiopulmonary dz. ED physician has reviewed this radiology report and agrees. Radiology Interpretation Completed By: Radiologist - EKG 0844 Cardiac Rate: NL EKG Rhythm: Sinus Rhythm - [address] Segment: Non-Specific Ectopy: None EKG Interpretation: nml AVIVCT, nml QTc, nml axis EKG Comparison: Other - Compared with 10/24/17, lead III now with Q-waves Re-Evaluation - Re-Evaluation 1 Re-Evaluation Time: 10:27 Change: Unchanged Comment: Discussing XR results (neg PNA) and plan for admission to [facility], which Dr. Wallace, hospitalist, agrees with. Pt is agreeable to this plan. Chest Pain Course/Dx - Course Course Of Treatment: A 32 y/o M with hx lupus and ESRD secondary to lupus, s/p nephrectomy for renal cell CA, s/p splenectomy for thrombocytopenia, presents with positional CP after hospital admission for PNA on 10/19/17. Pt called ambulance today due to diplopia that lasted less than one minute, and bilat upper and lower lip numbness, and worsening L limb numbness. Pt recently off Medrol, pt suspects possible Lupus exacerbation. Pt was recently on Medrol for the lupus. Has positional chest pain. With nml CXR and CP, ESRD, will check for pericarditis with cardioecho. Will also give ABX since pt c/o chills and white count and procalcitonin are elevated. Nuero sx have resolved completely and pt has nml neuro exam. The L arm numbness is chronic, so have not done further neuro eval in the ED. Sepsis fluids not given due to pts history of ESRD on peritoneal dialysis. Allergies noted. Pt medications reviewed this visit. - Diagnoses Provider Diagnoses: Transient diplopia, Chest pain, ESRD (end stage renal disease) on dialysis, SLE (systemic lupus erythematosus) - Provider Notifications Discussed Care Of Patient With: Gwendolyn Wallace - hospitalist Time Discussed With Above Provider: 10:20 Instructed by Provider To: Admit As Inpatient Discharge - Sign-Out/Discharge Documenting (check all that apply): Discharge/Admit/Transfer - admit - Discharge Plan Condition: Stable Disposition: ADMITTED TO [facility] The documentation as recorded by the Robb mcmillan SooYoung accurately reflects the service I personally performed and the decisions made by me, Maddy aTylor MD.
[2017-11-01] MEDS ORDERED: Hydroxychloroquine TAB* 200 MG PO SCH (21:00)
[2017-11-01] MEDS ORDERED: MYCOPHENOLATE 360 MG PO SCH (21:00)
[2017-11-01] MEDS ORDERED: Ropinirole TAB* 0.5 MG TAB PO SCH (21:00)
[2017-11-01] MEDS ORDERED: Docusate CAP* 100 MG PO SCH (21:00)
[2017-11-01] MEDS ORDERED: Carvedilol TAB* 3.125 MG PO SCH (21:00)
[2017-11-01] MEDS ORDERED: Prazosin CAP* 1 MG PO SCH (21:00)
--- NOTE | 2017-11-01 22:58 | DS ---
Amended report to enter co-signing physician. CC: Dr. Flores; Dr. Valentine; Dr. Astudillo* DISCHARGE SUMMARY: DATE OF ADMISSION: 11/01/17 DATE OF DISCHARGE: 11/01/17 PROVIDER: Carlo Mabry NP ATTENDING PHYSICIAN: Dr. Gwendolyn Wallace* (dictated by Carlo Mabry NP). HISTORY OF PRESENT ILLNESS: Please refer to the admission H and P and H and P medications. completed earlier today0 HOSPITAL COURSE : Only new medication added was Medrol 12 mg p.o. daily x5 days and then 8 mg p.o. daily x 5 days and then 4 mg p.o. daily x5 days. The patient was admitted with right shoulder and right upper chest pain. I suspect this was related to pericarditis. During the hospitalization, the patient was monitored on telemetry and he received Solu-Medrol 40 mg IV x1. The patient states that his chest pain resolved and his shoulder pain was gone after the Solu-Medrol. He is requesting to be discharged and the patient was advised that he should be monitored on telemetry overnight and should have repeat lab work drawn in the AM. The patient continues to wish to leave. The patient was advised he would need to sign out against medical advice. The patient was advised that he could have worsening of his chest pain including a fatal arrhythmias as well as decompensation of his condition, permanent disability and permanent loss of function. The patient continues to wish the sign out against medical advice. He states that he wants to return home and that if his symptoms return, he will return to the hospital for further management. The patient reports that he only came here today to receive some Solu-Medrol as he knew that he had pericarditis and that he has been off steroids for approximately 1 month. DISCHARGE PLAN: At this time, Mr. Puri will be discharged to [facility] from this facility. Risks and benefits of staying had been addressed with the patient. It was discussed that the risk of leaving would including heart attack, fatal arrhythmias, permanent disability and and he verbalized understanding. The patient will be given Medrol prescription which was transmitted to [facility]. 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 He was also instructed to follow up with Dr. Flores as soon as possible as well as his primary care provider. The patient verbalized understanding. He did sign [facility] paperwork. I discussed this with my attending Dr. Gwendolyn Wallace, and she is in agreement with the plan. CARLO MABRY, BUSINESS OFFICE REPRESENTATIVE [id number]/[facility] #: [id number] [facility]
--- NOTE | 2017-11-02 03:36 | HP ---
CC: Dr. Valentine; Dr. Flores; Dr. Astudillo of [place]* HISTORY AND PHYSICAL: DATE OF ADMISSION: 11/01/17 ATTENDING PHYSICIAN: Dr. Gwendolyn Wallace* (dictated by Yari Mabry NP). PRIMARY CARE PROVIDER: Dr. Valentine. ADMINISTRATIVE ASSISTANT OFFICE MANAGER: Dr. Flores. WEDDING DAY COORDINATOR: Dr. Astudillo of [place]. CHIEF COMPLAINT: Right shoulder and right-sided chest pain. HISTORY OF PRESENT ILLNESS: Mr. Puri is a 32-year-old male, who has a history of lupus, lupus nephritis and renal cell carcinoma, status post left nephrectomy , who is on peritoneal dialysis and presents to the emergency room with the complaint of right shoulder and right chest pain, dizziness, the patient reports that he was recently discharged from the hospital and developed right shoulder and right-sided chest pain rated at a 9, worse with deep breath, worse with movement of his right arm. The patient states that he was just sitting down when the pain started this morning. He denies any nausea or vomiting. Denies any diaphoresis. He does report that he had a temperature of 100.0 at home this a.m. He reports that he has had worsening joint and muscle aches x2 weeks. He denies any other symptoms. Denies any cough, hemoptysis or shortness of breath. Denies any nausea, vomiting or diarrhea. Denies any abdominal pain. Denies any gross hematuria, dysuria. Denies any focal weakness or sensory loss. Denies any dysphagia. Denies any visual complaints. Denies any lesions. He does report scabbed areas to bilateral arms and legs, states from reaction to medication while in his previous hospitalization. Given his symptoms of right-sided chest pain and right shoulder pain, we were asked to see and evaluate him for admission. PAST MEDICAL HISTORY: 1. Lupus. 2. History of lupus pericarditis. 3. History of lupus nephritis. 4. End-stage renal disease. 5. 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 6. Hypertension. PAST SURGICAL HISTORY: 1. Left inguinal hernia repair. 2. Splenectomy. 3. Left upper extremity dialysis fistula. 4. Left nephrectomy secondary to renal cell carcinoma. HOME MEDICATIONS: Include: 1. Tylenol 650 mg p.o. q.6 hours as needed. 2. Amlodipine 10 mg p.o. daily. 3. Calcitriol 1 mcg p.o. daily. 4. Carvedilol 3.125 mg p.o. b.i.d. 5. Sertraline 5 mg p.o. daily. 6. Colace 100 mg p.o. b.i.d. 7. Folic acid 5 mg p.o. daily. 8. Gabapentin 200 mg p.o. t.i.d. - the patient states he is not taking this medication. 9. Plaquenil 200 mg p.o. b.i.d. 10. Hydroxyzine 25 mg p.o. t.i.d. 11. Methylphenidate 10 mg p.o. daily. 12. Omeprazole 20 mg p.o. daily. 13. Prazosin 1 mg p.o. b.i.d. 14. Prochlorperazine 10 mg p.o. q.8 hours as needed. 15. Ropinirole 0.5 mg p.o. at h.s. 16. Sertraline 75 mg p.o. daily. 17. Sevelamer 2400 mg p.o. q.a.c. 18. Trazodone 50 mg p.o. q.h.s. 19. Mycophenolate sodium 720 mg p.o. daily. ALLERGIES: HYDROCHLOROTHIAZIDE and PREDNISONE. FAMILY HISTORY: Mother is living, she is 79. She has diabetes, hypothyroid, vascular dementia, recent CVA and DC. Dad is living and is 81. He has a history of diabetes, Graves disease and TIAs as well as Parkinson. SOCIAL HISTORY: The patient is nonsmoker. He quit approximately 2 to 3 years ago. He does not drink alcohol. He does not have any recreational drug use. Surrogate decision maker in the event he is unable to make his own decisions is his sister, Mandy, her phone number is [phone]. REVIEW OF SYSTEMS: He does report low-grade fever to 100.0 at home. He does report right upper chest pain and right shoulder pain. Denies any cough, congestion, hemoptysis or shortness of breath. Denies any nausea, vomiting, diarrhea. Denies any abdominal pain. Denies any hematuria, dysuria. Denies any focal weakness or sensory loss. Denies any visual complaints. Denies any dysphagia. He does report worsening joint and muscle aches x2 weeks. Denies any rashes or lesions. Denies any psychosis or anxiety. PHYSICAL EXAMINATION GENERAL: At this time, the patient is a well-developed young male, lying on the bed, in his patient room. He does not appear to be in any acute distress. VITAL SIGNS: Temperature was 98.3, heart rate was 74, respirations were 20, O2 saturation on room air was 98%, blood pressure was 127/67. HEENT: Head is atraumatic, normocephalic. Eyes: EOMs are intact. Sclerae anicteric and not pale. Oral mucosa appears to be moist. LUNGS: Clear to auscultation bilaterally. No wheezes, rales or rhonchi. HEART: Normal S1, S2. Rate is regular. There are no murmurs. ABDOMEN: Bowel sounds are present. Abdomen is soft, nontender, nondistended. MUSCULOSKELETAL: There is no cyanosis, clubbing. He has active range of motion of all 4 extremities. NEUROLOGIC: Sensation is intact to light touch. Strength is 5/5 in upper and lower extremities. SKIN: Warm and dry. There are scabbed areas noted to bilateral lower and upper extremities. PSYCH: The patient is alert and oriented x3. Affect is flat. DIAGNOSTIC STUDIES/LAB DATA: WBCs are 11.7, RBCs 2.78, hemoglobin was 8.8, hematocrit was 26, platelet count was 794. ESR was 120. INR was 1.10, fibrinogen was 734. Sodium 131, potassium 3.8, chloride was 90, carbon dioxide was 27, anion gap was 14, BUN was 50, creatinine 15.37, glucose was 115, lactic acid was 1.3. Repeat was 0.8, calcium was 9.3, mag 1.9, AST was 12, ALT was 14, C-reactive protein was 78.71, which is down from 10/24/17. At that time, it was 201.86. His procalcitonin is 1.6. He had a chest x-ray on 11/01/17. Radiologist's impression: No active cardiopulmonary disease. He had an EKG, showed sinus rhythm, rate of 87. He had transthoracic echocardiogram on 11/01/17 , conclusion: Global left ventricular wall motion and contractility are within normal limits. There is normal left ventricular systolic function, estimated ejection fraction is 60% to 65%. There is no evidence of aortic stenosis. There is [id number] mitral regurgitation. There is trace tricuspid regurgitation, unable to estimate the right ventricular systolic pressure. The pericardium appears to be normal. There are no significant changes when compared to previous study. ASSESSMENT AND PLAN: Mr. Puri is a 32-year-old male with a history of lupus, end- stage renal disease secondary to lupus and hypertension, who presented to the emergency room with complaints of right-sided chest pain and right shoulder pain. He will be admitted under observation for: 1. Chest pain. I suspect that his chest pain is most likely related to pericarditis. The patient reports that he had similar symptoms with his previous episodes of pericarditis. I will obtain an echo. We did obtain transthoracic echocardiogram to evaluate for any pleural effusion and evaluate for pericarditis. I will give him Solu-Medrol 40 mg IV x1 and then start him on Medrol at 12 mg p.o. daily. We will continue to trend his troponins. We will place him on telemetry. We will repeat an EKG in the a.m. 2. Lupus. We will do a C3 and C4 and a CH50, double strand will be added to his lab work. He should continue on his lupus medication, mycophenolate sodium 720 mg p.o. b.i.d. The patient reports that he gets outpatient infusions that he has missed x2 months. I recommend that he follow up as soon as possible to get his outpatient infusion. 3. Hypertension. He should continue on his amlodipine 10 mg p.o. daily. We will monitor his vital signs throughout his hospitalization. 4. End-stage renal disease. The patient has end-stage renal disease. He has an elevated BUN and creatinine. He currently does nightly peritoneal dialysis. He should continue his nightly peritoneal dialysis. Supplies will be obtained , so he can do this during this hospitalization. 5. Anemia. The patient has chronic anemia. At this time, his hemoglobin is at baseline compared to his previous admission. His hemoglobin range from 6.4 to 9.1. We will continue to monitor closely and repeat his CBC in the a.m. I suspect this is related to chronic anemia related to his history of lupus and end-stage renal disease. 6. DVT prophylaxis. I will place him on heparin subcu. 7. FEN. He will be placed on renal diet. 8. Code status. He is a full code. TIME SPENT: Time spent on this admission was approximately 70 minutes, greater than half the time was spent with the patient obtaining his history and physical. The other half time was spent going over my plan of care and implementing my plan of care with the patient. I have discussed this with my attending, Dr. Gwendolyn Wallace, she is in agreement with my plan. YARI MABRY, DEATH CLAIM CLERK [id number]/[facility] #: [id number] [facility]
[2017-11-02] MEDS ORDERED: Omeprazole CAP* 20 MG PO SCH (09:00)
[2017-11-02] MEDS ORDERED: Folic Acid TAB* 1 MG PO SCH (09:00)
[2017-11-02] MEDS ORDERED: Mupirocin 2% OINT* TUBE TOPICAL SCH (09:00)
[2017-11-02] MEDS ORDERED: Bumetanide TAB* 1 MG PO SCH (09:00)
[2017-11-02] MEDS ORDERED: amLODIPine TAB* 5 MG PO SCH (09:00)
[2017-11-02] MEDS ORDERED: Patiromer POWDER* 8.4 GM PAK PO SCH (09:00)
[2017-11-02] MEDS ORDERED: Sertraline* 50 MG TAB PO SCH (09:00)
[2017-11-02] MEDS ORDERED: Calcitriol CAP* 0.25 MCG PO SCH (09:00)
== END 2017-11-01 16:50 | disposition left against medical advice (07) ==
LOC: ED 08:18 → MEDTELE 10:53
PROVIDERS: ADMIT Internal Medicine; ATTEND Internal Medicine
DX: R07.9 Chest pain, unspecified (principal); M25.511 Pain in right shoulder; M32.9 Systemic lupus erythematosus, unspecified; I12.0 Hypertensive chronic kidney disease with stage 5 chronic kidney disease or end stage renal disease; N18.6 End stage renal disease; D64.9 Anemia, unspecified; I44.2 Atrioventricular block, complete; M32.12 Pericarditis in systemic lupus erythematosus; M32.14 Glomerular disease in systemic lupus erythematosus; Z79.899 Other long term (current) drug therapy; Z88.8 Allergy status to other drugs, medicaments and biological substances; Z85.528 Personal history of other malignant neoplasm of kidney; Z99.2 Dependence on renal dialysis; Z87.891 Personal history of nicotine dependence; R06.02 Shortness of breath
CPT/HCPCS: 36415; 71045; 80053; 82550; 83605; 83735; 83880; 84145; 84484; 85025; 85384; 85610; 85652; 85730; 86140; 86160; 86162; 86225; 87040; 93005; 93306; 96365; 96366; 96367; 96375; 99283; A9270-GY; G0378; J0456; J0696; J2920

== ENCOUNTER 2017-11-21 11:47 | Emergency (ER) | payer MEDICARE ==
--- OUTSIDE RECORDS SUMMARY | 2017-11-21 12:02 | XMS REPORT ---
:1985 External Reference #:[id number] Author Organization [employer] [facility] Address [address] [place] [address] Phone [phone] Care Team Providers Name Role Phone Mirza Valentine D.O. Primary Care Physician Unavailable Payers Type Date Identification Numbers Payment Provider Subscriber Medicare Primary Policy Number: [id number] Medicare - NGS Jose Enrique Puri PayID: [id number] [address] [place] [address] [place] [address] Problems Date Description Provider Status Onset: End stage renal disease Active Onset: Lupus erythematosus Active Onset: Essential hypertension Active Onset: Anxiety Active Onset: 08/03/2016 Primary iridocyclitis Shannon Palomares O.D. Active Onset: 08/03/2016 Systemic lupus erythematosus Shannon Palomares O.D. Active Onset: 11/12/2017 Taking medication Shannon Palomares O.D. Active Family History Date Family Member(s) Problem(s) Comments Father No Current Problems Mother Cataract Paternal Grandmother Glaucoma Aunt Cataract Aunt Macular Degeneration Social History Type Date Description Comments Marital Status Single Occupation Shift [employer] Work Status Disabled ETOH Use Denies alcohol use Smoking Patient is a former smoker Recreational Drug Use Denies Drug Use Daily Caffeine Consumes on average 3 cups of regular coffee per day Allergies, Adverse Reactions, Alerts Date Description Reaction Status Severity Comments 08/03/2016 Hydralazine active 11/12/2017 Benadryl active Medications Medication Date Status Form Strength Qnty SIG Indications Ordering Provider Hydroxychloroquin Active Tablets 200mg Take 2 Unknown e Sulfate /0000 Tablets By Mouth Daily ongoing Sertraline HCL Active Tablets 50mg Take 1 Unknown /0000 Tablet By Mouth Every Day as Directed Tramadol HCL Active Tablets 50mg Take 1 Unknown /0000 Tablet By Mouth once A Day as Needed For Pain (Max 1 tab/day) Trazodone HCL Active Tablets 50mg Take 1 Unknown /0000 Tablet By Mouth every day at bedtime as Needed for insomnia Methylprednisolon Active Tablets 8mg 1 daily Unknown e /0000 Heparin (Porcine) Active Solution 2-0.9Unit Unknown In Nacl / /ML-% Zyrtec Allergy Active Capsules 10mg Unknown /0000 Lorazepam Active Tablets 1mg Sandra froylan M.D. Oxycodone HCL Active Tablets 5mg Take 2 Unknown /0000 Tablets By Mouth Every 8 Hours as Needed For Severe Pain Must C Bumetanide Active Tablets 1mg Take 1 Unknown /0000 Tablet By Mouth Every Day Ropinirole HCL Active Tablets 0.5mg Take 1 Unknown /0000 Tablet By Mouth Two Times Daily Folic Acid Active Tablets 1mg Take 5 Unknown /0000 Tablets By Mouth Every Day Nicotine Active Gum 2mg Slowly And Unknown Polacrilex /0000 Intermitte ntly Chew 1 Piece By Mouth For 30 Minutes. Repeat Prednisolone 08/03 Hx Suspension 1% 1 drop H20.013 Shannon Webster both eyes Jelani, - every 2 O.D. Colchicine / Hx Tablets 0.6mg Take 1 Unknown /0000 Tablet By - Mouth 11/11 Nicotine Hx Gum 2mg Chew 1 Unknown Polacrilex /0000 Piece - Slowly And 11/11 Intermitt ntly For 30 Minutes. Repeat Every 1- Amlodipine Hx Tablets 10mg Take 1 Unknown Besylate /0000 Tablet By - Mouth 11/11 Gabapentin Hx Capsules 100mg take 2 Unknown /0000 daily - 11/11 Results Description No Information Procedures Date CPT Code Description Status 08/19/2016 43064 Patient No Show For Appt Completed 08/03/2016 28996 Scanning Computerized Opthalmic Diagnostic Posterior Completed Seg Retina 08/03/2016 00961 New Patient Intermediate Exam Completed Encounters Type Date Location Provider CPT E/M Dx Office Visit 09/02/2016 Charanjit Piedra MD, Shannon Palomares O.D. 68808 H20.013 11:45a pc Office Visit 08/10/2016 Charanjit Piedra MD, Shannon Palomares O.D. 31098 H20.013 2:45p pc M32.9 Office Visit 08/05/2016 1:15p Charanjit Piedra MD, Shannon Palomares O.D. 50722 H20.013 pc M32.9 Plan of Care 11/12/2017 - Shannon Palomares O.D.M32.9 Systemic lupus erythematosus, unspecifiedComments:Smoking can increase the risk of developing or worsening any eye related disease, as well as affect your overall health. If you are a smoker, we strongly recommend that you quit.If you are not a smoker, we strongly recommend that you do not start.Z79.899 Other meterman (current) drug therapyComments:Some of the medications you are on have the potential to cause damage to your retinas. Depending onthe length of time that you have been taking the medication, Dr. Palomares may monitor you annually or bi-annually. Dr. Palomares may also order a Visual Field test or an Optical Coherence Tomography test to monitor your retinas.Follow up:next available VF 10-2/color vision/OCT mac only
--- NOTE | 2017-11-21 13:38 | ED ---
Abdominal Pain/Male - HPI Summary HPI Summary: This is scribe Elisha Jackson documenting for attending Bennie Casarez MD. 32 year old M presenting to [facility] complains of intermittent lower abdominal pain radiating to upper abdomen since one week ago. The patient rates the pain 0 /10 in severity. Symptoms aggravated by food. Symptoms alleviated by nothing. Patient reports nausea, which he has treated with Zofran with relief. Additionally complains of dry heaves and lethargy. - History of Current Complaint Chief Complaint: EDAbdPain Stated Complaint: ABD PAIN Time Seen by Provider: 11/21/17 13:25 Hx Obtained From: Patient Onset/Duration: Lasting Weeks - 1, Still Present Timing: Intermittent Severity Currently: None Pain Intensity: 0 Pain Scale Used: 0-10 Numeric Location: Other - lower Radiates: Yes Radiates to: Other - upper abdeomen Aggravating Factor(s): Food Alleviating Factor(s): Nothing Associated Signs And Symptoms: Positive: Nausea, Other - dry heaves, lethargy - Allergies/Home Medications Allergies/Adverse Reactions: Allergies Allergy/AdvReac Type Severity Reaction Status Date / Time hydralazine Allergy Intermediate Shortness Verified 11/21/17 11:59 of Breath prednisone Allergy Hallucinati Verified 11/21/17 11:59 ons PMH/Surg Hx/FS Hx/Imm Hx Previously Healthy: No Endocrine/Hematology History: Reports: Hx Systemic Lupus Erythematosus Denies: Hx Diabetes, Hx Thyroid Disease Cardiovascular History: Reports: Hx Hypertension, Other Cardiovascular Problems/ Disorders - hx pericarditis Denies: Hx Pacemaker/ICD, Hx Peripheral Vascular Disease Respiratory History: Reports: Hx Asthma, Hx Pneumonia, Hx Seasonal Allergies, Other Respiratory Problems/Disorders - Hx pleurisy. History: Reports: Hx Chronic Renal Failure, Hx Dialysis - peritoneal, on cycler at night , Hx Renal Disease, Other Problems/Disorders - Kidney cancer , unilateral nephrectomy Musculoskeletal History: Reports: Other Musculoskeletal History - Lupus: generlized pain Denies: Hx Arthritis, Hx Osteoporosis Sensory History: Reports: Hx Contacts or Glasses Denies: Hx Hearing Aid Opthamlomology History: Reports: Hx Contacts or Glasses Neurological History: Reports: Other Neuro Impairments/Disorders - Nerve pain - generalized Denies: Hx Seizures, Hx Transient Ischemic Attacks (TIA) Psychiatric History: Reports: Hx Anxiety, Hx Panic Disorder - Cancer History Cancer Type, Location and Year: Kidney cancer, September 2014 in [place]. Hx Chemotherapy: Yes - For lupus. - Surgical History Surgery Procedure, Year, and Place: Nephrectomy, splenectomy, Inguinal hernia repaired, multiple fistula placements Hx Anesthesia Reactions: No Infectious Disease History: No Infectious Disease History: Reports: Hx of Known/Suspected MRSA Denies: Traveled Outside the [place] in Last 30 Days - Family History Known Family History: Positive: Hypertension, Diabetes, Other - lupus - Social History Alcohol Use: None Hx Substance Use: No Substance Use Type: Reports: None Hx Tobacco Use: Yes Smoking Status (MU): Former Smoker Type: Cigarettes Amount Used/How Often: 5-10 cigs per day for 15 years until quit Length of Time of Smoking/Using Tobacco: 15 years Have You Smoked in the Last Year: Yes Review of Systems Positive: Other - lethargy Positive: Abdominal Pain - intermittent lower abd pain radiating to upper abd, Nausea, Other - dry heaves All Other Systems Reviewed And Are Negative: Yes Physical Exam - Summary Physical Exam Summary: Appearance: The patient is well-nourished in no acute distress and in no acute pain. Skin: The skin is warm and dry and skin color reflects adequate perfusion. HEENT: The head is normocephalic and atraumatic. The pupils are equal and reactive. The conjunctivae are clear and without drainage. Nares are patent and without drainage. Mouth reveals moist mucous membranes and the throat is without erythema and exudate. The external ears are intact. The ear canals are patent and without drainage. The tympanic membranes are intact. Neck: The neck is supple with full range of motion and non-tender. There are no carotid bruits. There is no neck vein distension. Respiratory: Chest is non-tender. Lungs are clear to auscultation and breath sounds are symmetrical and equal. Cardiovascular: Heart is regular rate and rhythm. There is no murmur or rub auscultated. There is no peripheral edema and pulses are symmetrical and equal. Abdomen: The abdomen is diffusely tender. Musculoskeletal: There is no back tenderness noted. Extremities are non-tender with full range of motion. There is good capillary refill. There is no peripheral edema or calf tenderness elicited. Neurological: Patient is alert and oriented to person, place and time. The patient has symmetrical motor strength in all four extremities. Cranial nerves are grossly intact. Deep tendon reflexes are symmetrical and equal in all four extremities. Psychiatric: The patient has an appropriate affect and does not exhibit any anxiety or depression. Triage Information Reviewed: Yes Vital Signs On Initial Exam: Initial Vitals Temp Pulse Resp BP Pulse Ox 98.4 F 82 20 150/86 98 11/21/17 11:50 11/21/17 11:50 11/21/17 11:50 11/21/17 11:50 11/21/17 11:50 Vital Signs Reviewed: Yes Diagnostics - Vital Signs Vital Signs Temp Pulse Resp BP Pulse Ox 11/21/17 13:17 83 141/79 100 11/21/17 11:50 98.4 F 82 20 150/86 98 - Laboratory Result Diagrams: 11/21/17 14:45 11/21/17 14:45 Lab Statement: Any lab studies that have been ordered have been reviewed, and results considered in the medical decision making process. Re-Evaluation - Re-Evaluation First Eval Re-Evaluation Time: 18:12 Comment: patient understands discharge instructions and is agreeable to discharge Abdominal Pain Fem Course/Dx - Course Course Of Treatment: Mr. Puri presents complaining of a day or so of abdominal pain. It is a vague story and his exam was not very remarkable either. Laboratory workup was negative as well as CT. He certainly does not have peritoneal signs but I spoke with Dr. Srivastava with a concern since he is on CAPD. Dr. Srivastava volunteered that he would follow him up tomorrow to get a sample of his fluid and treated if necessary. - Diagnoses Provider Diagnoses: Abdominal pain - Provider Notifications Discussed Care Of Patient With: Charanjit Flores Time Discussed With Above Provider: 18:06 Instructed by Provider To: Other - Dr. Flores, internal medicine, says patient can follow up with him in his office tomorrow to test for peritoneal fluid. Discharge - Sign-Out/Discharge Documenting (check all that apply): Patient Departure - Discharge - Discharge Plan Condition: Stable Disposition: HOME Prescriptions: Metoclopramide TAB* [Reglan TAB*] 10 mg PO Q8H #10 tab oxyCODONE TAB* [Roxycodone TAB 5 mg*] 5 mg PO Q6H PRN #10 tab MDD 4 PRN Reason: Pain Patient Education Materials: Abdominal Pain (ED) Referrals: Mirza Valentine DO [Primary Care Provider] - Charanjit Flores MD [Medical Doctor] - 11/22/17 Additional Instructions: Follow up with Dr. Flores tomorrow to test for peritoneal fluid. Return to the Emergency Department for new or worsening symptoms. - Billing Disposition and Condition Condition: STABLE Disposition: Home
[2017-11-21] MEDS ORDERED: HYDROmorphone INJ* 1 MG/ML CARPUJECT SYRINGE IV ONE (14:02)
[2017-11-21] MEDS ORDERED: Metoclopramide IV* 5 MG/ML 2 ML VIAL IV ONE (14:28)
[2017-11-21 14:58] LABS: ABS Basophils 0 10^3/ul (0-0.2); ABS Eosinophils 0 10^3/ul (0-0.6); ABS Neutrophils 10.2 10^3/ul (1.5-7.7); ABS Nucleated RBC 0 10^3/ul; Eosinophil % 0.3 % (0-6); Hematocrit 25 % (42-52); Lymphocyte % 15.3 % (25-47); Mean Corpuscular HGB Conc 32 g/dl (31-36); Mean Corpuscular Hemoglobin 31 pg (27-31); Mean Corpuscular Volume 97 fL (80-94); Nucleated Red Blood Cells % 0.1; Platelet Count 291 10^3/ul (150-450); Red Blood Count 2.57 10^6/ul (4.00-5.40); Red Cell Distribution Width 15 % (10.5-15); White Blood Count 13.4 10^3/ul (3.5-10.8)
[2017-11-21 15:18] LABS: EGFR Non-African American 3.3 (>60)
[2017-11-21 17:45] LABS: Urine Appearance Clear; Urine Blood Negative (Negative); Urine Color Straw; Urine Ketones Negative (Negative); Urine Protein 1+(30 mg/dL) (Negative); Urine Red Blood Cell Absent (Absent); Urine Specific Gravity 1.009 (1.010-1.030); Urine Urobilinogen Negative (Negative); Urine White Blood Cell Absent (Absent)
--- NOTE | 2017-11-21 17:47 | RAD ---
INDICATION: Diffuse abdominal pain. COMPARISON: Comparison is made with a prior CT of the abdomen and pelvis from October 25, 2017. TECHNIQUE: A CT scan of the abdomen and pelvis was performed without intravenous and without oral contrast. Contiguous axial sections were obtained from the lung bases through the symphysis pubis. Images were reconstructed in the coronal and sagittal planes. FINDINGS: The lung bases are clear. No pleural effusion is present. The liver is normal and size without significant focal abnormality on this noncontrast study. No calcified gallstones are seen. The patient is status post splenectomy. The pancreas appears to be within normal limits. The adrenal glands appear within normal limits. The patient is status post left nephrectomy. The right kidney appears small in size with cortical thinning and small hypodense areas likely representing cysts on this noncontrast study. No renal calculi are seen. There is no evidence for hydronephrosis. The aorta is normal in caliber. There is mild calcific plaque present. No significant enlarged retroperitoneal lymph nodes are seen. Evaluation of the bowel is limited on this noncontrast study. The stomach, small and large bowel appear nondistended. The appendix is not well visualized. There are scattered diverticuli within the colon. There is no evidence for diverticulitis or colitis. There is a small amount of free intraperitoneal fluid present within the abdomen and pelvis. No free intraperitoneal air is seen. There is a peritoneal dialysis catheter present. The distal portion of the catheter is located dependently within the pelvis. No significant focal osseous abnormality is seen. IMPRESSION: 1. SMALL AMOUNT OF FREE INTRAPERITONEAL FLUID. THERE IS A PERITONEAL DIALYSIS CATHETER PRESENT. 2. STATUS POST SPLENECTOMY AND LEFT NEPHRECTOMY. 3. SMALL ATROPHIC RIGHT KIDNEY.
[2017-11-21 18:27] VITALS: BP 152/105
== END 2017-11-21 18:25 | disposition home or self-care (01) ==
LOC: ED 11:47
DX: R10.30 Lower abdominal pain, unspecified (principal); R10.10 Upper abdominal pain, unspecified; Z90.5 Acquired absence of kidney; Z90.81 Acquired absence of spleen; Z87.891 Personal history of nicotine dependence; Z88.8 Allergy status to other drugs, medicaments and biological substances
CPT/HCPCS: 36415; 74176; 80053; 81003; 81015; 83605; 83690; 84484; 85025; 86140; 96374; 99283; J1170; J2765

== ENCOUNTER 2017-11-29 13:23 | Emergency (ER) | payer MEDICARE ==
--- NOTE | 2017-11-29 14:04 | ED ---
Abdominal Pain/Male - HPI Summary HPI Summary: This is deyanira Billybharati Barnes documenting for attending Diego Oliveros MD. This patient is a 32 year old M presenting to ED with a chief complaint of abdominal cramping every day since 1 month ago. The CC is described as intermittent. The patient rates the pain 10/10 in severity during onset of cramping. Symptoms aggravated by nothing. Symptoms alleviated by nothing. Patient reports bilateral leg and feet pain. Saw Dr. Key who gave the patient pain meds which alleviated the pain slightly. Dr. Hines in [place]. The patient cannot see a hair machine operator until next month. - History of Current Complaint Chief Complaint: EDAbdPain Stated Complaint: ABD CRAMPS,NAUSEA-ON DIALYSIS Time Seen by Provider: 11/29/17 13:50 Hx Obtained From: Patient Onset/Duration: Sudden Onset, Lasting Weeks - since about 1 month ago, Still Present Timing: Intermittent Severity Initially: Severe Severity Currently: Severe Pain Intensity: 10 Pain Scale Used: 0-10 Numeric Character: Cramping Aggravating Factor(s): Nothing Alleviating Factor(s): Medications - Saw Dr. Key who gave the patient pain meds which alleviated the pain slightly Associated Signs And Symptoms: Positive: Other - Patient reports bilateral leg and feet pain. - Allergies/Home Medications Allergies/Adverse Reactions: Allergies Allergy/AdvReac Type Severity Reaction Status Date / Time hydralazine Allergy Intermediate Shortness Verified 11/29/17 14:01 of Breath prednisone Allergy Hallucinati Verified 11/29/17 14:01 ons PMH/Surg Hx/FS Hx/Imm Hx Endocrine/Hematology History: Reports: Hx Systemic Lupus Erythematosus Denies: Hx Diabetes, Hx Thyroid Disease Cardiovascular History: Reports: Hx Hypertension, Other Cardiovascular Problems/ Disorders - hx pericarditis Denies: Hx Pacemaker/ICD, Hx Peripheral Vascular Disease Respiratory History: Reports: Hx Asthma, Hx Pneumonia, Hx Seasonal Allergies, Other Respiratory Problems/Disorders - Hx pleurisy. History: Reports: Hx Chronic Renal Failure, Hx Dialysis - peritoneal, on cycler at night , Hx Renal Disease, Other Problems/Disorders - Kidney cancer , unilateral nephrectomy Musculoskeletal History: Reports: Other Musculoskeletal History - Lupus: generlized pain Denies: Hx Arthritis, Hx Osteoporosis Sensory History: Reports: Hx Contacts or Glasses Denies: Hx Hearing Aid Opthamlomology History: Reports: Hx Contacts or Glasses Neurological History: Reports: Other Neuro Impairments/Disorders - Nerve pain - generalized Denies: Hx Seizures, Hx Transient Ischemic Attacks (TIA) Psychiatric History: Reports: Hx Anxiety, Hx Panic Disorder - Cancer History Cancer Type, Location and Year: Kidney cancer, September 2014 in [place]. Hx Chemotherapy: Yes - For lupus. - Surgical History Surgery Procedure, Year, and Place: Nephrectomy, splenectomy, Inguinal hernia repaired, multiple fistula placements Hx Anesthesia Reactions: No - Immunization History Immunizations Up to Date: Yes Infectious Disease History: No Infectious Disease History: Reports: Hx of Known/Suspected MRSA Denies: Traveled Outside the US in Last 30 Days - Family History Known Family History: Positive: Hypertension, Diabetes, Other - lupus - Social History Alcohol Use: None Hx Substance Use: No Substance Use Type: Reports: None Hx Tobacco Use: Yes Smoking Status (MU): Former Smoker Type: Cigarettes Amount Used/How Often: 5-10 cigs per day for 15 years until quit Length of Time of Smoking/Using Tobacco: 15 years Have You Smoked in the Last Year: Yes Review of Systems Positive: Abdominal Pain - cramping Positive: Other - bilateral leg and feet pain All Other Systems Reviewed And Are Negative: Yes Physical Exam - Summary Physical Exam Summary: VITAL SIGNS: Reviewed. GENERAL: Patient is a well-developed and nourished male who is lying comfortable in the stretcher. Patient is not in any acute respiratory distress. HEAD AND FACE: Normocephalic and atraumatic. EYES: PERRLA, EOMI x 2, No injected conjunctiva. EARS: Hearing grossly intact. Ear canals and tympanic membranes are WNL. MOUTH: Oropharynx within normal limits. NECK: Supple, trachea is midline, no adenopathy, no JVD. CHEST: Symmetric, no tenderness at palpation LUNGS: Clear to auscultation bilaterally. No wheezing or crackles. CVS: RRR, S1 and S2 present, no murmurs or gallops appreciated. ABDOMEN: Soft, non-tender. No signs of distention. Positive bowel sounds. No rebound no guarding, and no masses palpated. No abdominal bruit or pulsations. Positive peritoneal dialysis catheter on R side of the abdomen. EXTREMITIES: FROM in all major joints, no edema, no cyanosis or clubbing. NEURO: Alert and oriented x 3. No acute neurological deficits. Speech is normal. SKIN: Dry and warm Triage Information Reviewed: Yes Vital Signs On Initial Exam: Initial Vitals Temp Pulse Resp BP Pulse Ox 98.9 F 112 16 147/103 100 11/29/17 13:26 11/29/17 13:26 11/29/17 13:26 11/29/17 13:26 11/29/17 13:26 Vital Signs Reviewed: Yes Diagnostics - Vital Signs Vital Signs Temp Pulse Resp BP Pulse Ox 11/29/17 13:26 98.9 F 112 16 147/103 100 - Laboratory Result Diagrams: 11/29/17 14:15 11/29/17 14:15 Lab Statement: Any lab studies that have been ordered have been reviewed, and results considered in the medical decision making process. Re-Evaluation - Re-Evaluation First Eval Re-Evaluation Time: 15:57 Comment: The patient is feeling better. Discussed discharge plan. Patient understands and agrees. Abdominal Pain Fem Course/Dx - Course Assessment/Plan: This patient is a 32 year old M presenting to ED with a chief complaint of abdominal cramping every day since 1 month ago. The CC is described as intermittent. The patient rates the pain 10/10 in severity during onset of cramping. Symptoms aggravated by nothing. Symptoms alleviated by nothing. Patient reports bilateral leg and feet pain. Saw Dr. Key who gave the patient pain meds which alleviated the pain slightly. Dr. Hines in [place]. The patient cannot see a hair machine operator until next month. Blood test results significant for a normocytic normochromic anemia, current 94, anion gap of 14, Bielens 55, creatinine he needs 15.9, calcium 11.2, at his base line. Patient was given Bentyl for cramping and the symptoms subsided. Patient reports that he doesnt have any longer any pain. I was asking him to get a urinalysis however the patient reports that he is unable to give a sample. patient is drinking fluids and he has no nausea or vomiting. The patient has an appointment with Dr. Srivastava and also the primary care physician is couple days. Therefore he requested a prescription for Bentyl which improved her symptoms and she requests to be discharged. Patient is hemodynamically stable alert and oriented 3. - Diagnoses Provider Diagnoses: Abdominal cramping Discharge - Sign-Out/Discharge Documenting (check all that apply): Patient Departure - Discharge Plan Condition: Stable Disposition: HOME Prescriptions: Dicyclomine CAP* [Bentyl CAP*] 10 mg PO TID PRN #10 cap PRN Reason: Pain Patient Education Materials: Abdominal Pain (ED) Referrals: Mirza Valentine DO [Primary Care Provider] - 3 Days () Additional Instructions: FOLLOW UP WITH YOUR PRIMARY CARE PROVIDER WITHIN ONE WEEK FOR HIGH BLOOD PRESSURE NOTED TODAY. RETURN TO THE ED FOR ANY WORSENING OR NEW SYMPTOMS. - Billing Disposition and Condition Condition: STABLE Disposition: Home
[2017-11-29 14:37] LABS: ABS Basophils 0.2 10^3/ul (0-0.2); ABS Eosinophils 0.1 10^3/ul (0-0.6); ABS Lymphocytes 1.6 10^3/ul (1.0-4.8); ABS Monocytes 0.8 10^3/ul (0-0.8); ABS Neutrophils 7.8 10^3/ul (1.5-7.7); ABS Nucleated RBC 0 10^3/ul; Eosinophil % 1.1 % (0-6); Hematocrit 24 % (42-52); Mean Corpuscular HGB Conc 33 g/dl (31-36); Mean Corpuscular Hemoglobin 32 pg (27-31); Mean Corpuscular Volume 96 fL (80-94); Mean Platelet Volume 9.3 um3 (7.4-10.4); Nucleated Red Blood Cells % 0.1; Platelet Count 363 10^3/ul (150-450); Red Blood Count 2.54 10^6/ul (4.00-5.40); Red Cell Distribution Width 14 % (10.5-15); White Blood Count 10.5 10^3/ul (3.5-10.8)
[2017-11-29 15:09] LABS: EGFR Non-African American 3.5 (>60)
[2017-11-29] MEDS ORDERED: Dicyclomine CAP* 10 MG PO ONE (15:10)
[2017-11-29 16:11] VITALS: BP 159/89
== END 2017-11-29 16:12 | disposition home or self-care (01) ==
LOC: ED 13:23
DX: R10.9 Unspecified abdominal pain (principal); R11.0 Nausea; M79.605 Pain in left leg; M79.604 Pain in right leg; M79.672 Pain in left foot; M79.671 Pain in right foot; N18.6 End stage renal disease; Z99.2 Dependence on renal dialysis; Z90.5 Acquired absence of kidney; Z88.8 Allergy status to other drugs, medicaments and biological substances; Z87.891 Personal history of nicotine dependence; R10.84 Generalized abdominal pain; R11.2 Nausea with vomiting, unspecified; M32.9 Systemic lupus erythematosus, unspecified; Z82.49 Family history of ischemic heart disease and other diseases of the circulatory system; Z83.3 Family history of diabetes mellitus
CPT/HCPCS: 36415; 80053; 83690; 85025; 86140; 99283; A9270-GY

== ENCOUNTER 2017-11-29 18:03 | Emergency (ER) | payer MEDICARE ==
--- NOTE | 2017-11-29 19:23 | ED ---
Abdominal Pain/Male - HPI Summary HPI Summary: Patient complains of diffuse intermittent abdominal cramping 1 month, with associated N/V. Patient has history of end-stage renal disease, lupus and is on dialysis. Recent rule out of peritonitis as cause for this abdominal pain. Has appointment with GI in December. Patient seen here today earlier for same symptoms. Patient's symptoms resolved with Bentyl while here in the ED and patient was discharged home. Patient states he had N/V and recurrent abdominal cramping an hour after returning home. N/V resolved with existing Rx for Zofran , but patient returns asking for stronger pain medication specifically oxycodone. Dr. Villarrealple his PCP. Dr. Key is his knuckle strap sewer. Denies fever , change in symptoms, trauma, cough, sore throat, CP, SOB, change in urine or BM. - History of Current Complaint Chief Complaint: EDAbdPain Stated Complaint: VOMITING/ABD PAIN Time Seen by Provider: 11/29/17 18:35 Hx Obtained From: Patient Onset/Duration: Gradual Onset, Lasting Weeks Timing: Intermittent Severity Initially: Severe Severity Currently: Severe Pain Intensity: 9 Pain Scale Used: 0-10 Numeric Location: Diffuse Radiates: No Character: Cramping Aggravating Factor(s): Nothing Alleviating Factor(s): Nothing Associated Signs And Symptoms: Positive: Nausea, Vomiting - Allergies/Home Medications Allergies/Adverse Reactions: Allergies Allergy/AdvReac Type Severity Reaction Status Date / Time hydralazine Allergy Intermediate Shortness Verified 11/29/17 14:01 of Breath prednisone Allergy Hallucinati Verified 11/29/17 14:01 ons PMH/Surg Hx/FS Hx/Imm Hx Endocrine/Hematology History: Reports: Hx Systemic Lupus Erythematosus Denies: Hx Diabetes, Hx Thyroid Disease Cardiovascular History: Reports: Hx Hypertension, Other Cardiovascular Problems/ Disorders - hx pericarditis Denies: Hx Pacemaker/ICD, Hx Peripheral Vascular Disease Respiratory History: Reports: Hx Asthma, Hx Pneumonia, Hx Seasonal Allergies, Other Respiratory Problems/Disorders - Hx pleurisy. History: Reports: Hx Chronic Renal Failure, Hx Dialysis - peritoneal, on cycler at night , Hx Renal Disease, Other Problems/Disorders - Kidney cancer , unilateral nephrectomy Musculoskeletal History: Reports: Other Musculoskeletal History - Lupus: generlized pain Denies: Hx Arthritis, Hx Osteoporosis Sensory History: Reports: Hx Contacts or Glasses Denies: Hx Hearing Aid Opthamlomology History: Reports: Hx Contacts or Glasses Neurological History: Reports: Other Neuro Impairments/Disorders - Nerve pain - generalized Denies: Hx Seizures, Hx Transient Ischemic Attacks (TIA) Psychiatric History: Reports: Hx Anxiety, Hx Panic Disorder - Cancer History Cancer Type, Location and Year: Kidney cancer, September 2014 in [place]. Hx Chemotherapy: Yes - For lupus. - Surgical History Surgery Procedure, Year, and Place: Nephrectomy, splenectomy, Inguinal hernia repaired, multiple fistula placements Hx Anesthesia Reactions: No Infectious Disease History: No Infectious Disease History: Reports: Hx of Known/Suspected MRSA Denies: Traveled Outside the [place] in Last 30 Days - Family History Known Family History: Positive: Hypertension, Diabetes, Other - lupus - Social History Alcohol Use: None Hx Substance Use: No Substance Use Type: Reports: None Hx Tobacco Use: Yes Smoking Status (MU): Former Smoker Type: Cigarettes Amount Used/How Often: 5-10 cigs per day for 15 years until quit Length of Time of Smoking/Using Tobacco: 15 years Have You Smoked in the Last Year: Yes Review of Systems Constitutional: Negative Eyes: Negative ENT: Negative Cardiovascular: Negative Respiratory: Negative Positive: Abdominal Pain, Vomiting, Nausea Genitourinary: Negative Musculoskeletal: Negative Skin: Negative Neurological: Negative Psychological: Normal All Other Systems Reviewed And Are Negative: Yes Physical Exam Triage Information Reviewed: Yes Vital Signs On Initial Exam: Initial Vitals Temp Pulse Resp BP Pulse Ox 99.1 F 99 16 161/99 97 11/29/17 18:09 11/29/17 18:09 11/29/17 18:09 11/29/17 18:09 11/29/17 18:09 Vital Signs Reviewed: Yes Appearance: Positive: Well-Appearing Skin: Positive: Warm Head/Face: Positive: Normal Head/Face Inspection Eyes: Positive: Normal Neck: Positive: Supple Respiratory/Lung Sounds: Positive: Clear to Auscultation Cardiovascular: Positive: Normal Abdomen Description: Positive: Other: Musculoskeletal: Positive: Normal Neurological: Positive: Normal Psychiatric: Positive: Normal AVPU Assessment: Alert - Agustin Coma Scale Best Eye Response: 4 - Spontaneous Best Motor Response: 6 - Obeys Commands Best Verbal Response: 5 - Oriented Coma Scale Total: 15 Diagnostics - Vital Signs Vital Signs Temp Pulse Resp BP Pulse Ox 11/29/17 18:09 99.1 F 99 16 161/99 97 - Laboratory Lab Statement: Any lab studies that have been ordered have been reviewed, and results considered in the medical decision making process. Abdominal Pain Fem Course/Dx - Course Course Of Treatment: Patient complains of diffuse intermittent abdominal cramping 1 month, with associated N/V. Patient has history of end-stage renal disease, lupus and is on dialysis. Recent rule out of peritonitis as cause for this abdominal pain. Has appointment with GI in December. Patient seen here today earlier for same symptoms. Patient's symptoms resolved with Bentyl while here in the ED and patient was discharged home. Patient states he had N/V and recurrent abdominal cramping an hour after returning home. N/V resolved with existing Rx for Zofran, but patient returns asking for stronger pain medication specifically oxycodone. Dr. Villarrealple his PCP. Dr. Key is his knuckle strap sewer. Denies fever, change in symptoms, trauma, cough, sore throat, CP, SOB, change in urine or BM. Patient repeatedly requesting pain medication, specifically oxycodone. States Bentyl helped him that earlier visit, but then pain returned. Has not tried a second Bentyl. Patient appears to be drug seeking. Vital signs continue to be within normal limits. Labs and imaging from prior visit today were at patient baseline. Patient denies any new symptoms. Nausea controlled with already existing home Rx for Zofran. Patient just keeps coming back to topic of pain medication and oxycodone. Patient states he has follow- up with GI in December. Advised patient to continue on Zofran and Bentyl. Follow-up with primary care. - Diagnoses Provider Diagnoses: Abdominal cramping Discharge - Sign-Out/Discharge Documenting (check all that apply): Patient Departure - Discharge Plan Condition: Stable Disposition: HOME Patient Education Materials: Chronic Abdominal Pain (ED) Referrals: Mirza Valentine DO [Primary Care Provider] - Additional Instructions: Follow-up with your GI doctor and primary care. Return to the ED for any new or worsening symptoms - Billing Disposition and Condition Condition: STABLE Disposition: Home
[2017-11-29 19:55] VITALS: BP 0/0
== END 2017-11-29 19:53 | disposition home or self-care (01) ==
LOC: ED 18:03
DX: R10.84 Generalized abdominal pain (principal); R11.2 Nausea with vomiting, unspecified; N18.6 End stage renal disease; Z99.2 Dependence on renal dialysis; M32.9 Systemic lupus erythematosus, unspecified; Z90.5 Acquired absence of kidney; Z88.8 Allergy status to other drugs, medicaments and biological substances; Z82.49 Family history of ischemic heart disease and other diseases of the circulatory system; Z83.3 Family history of diabetes mellitus; Z87.891 Personal history of nicotine dependence
CPT/HCPCS: 99282

== ENCOUNTER 2018-02-17 11:51 | Inpatient (IN) | payer MEDICARE, MEDICAID ==
--- NOTE | 2018-02-17 12:38 | ED ---
Substance Abuse/Use - HPI Summary HPI Summary: Patient is a 33 y/o M w/ c/o possible overdose taking 50 mg x6 of tramadol at around 0700 today. PMHx of lupus, nephritis, kidney CA, and aortic valve vegetation. Patient is on dialysis. Patient has had lupus since [age] years of age. PSHx for aortic valve vegetation two months ago, left nephrectomy. Patient is on plaquenil, mycophenolic acid, trazodone, gabapentin. SI and PMHx of depression are denied. He reports chronic pain and states that he took this amount of tramadol as he was expreriencing significant pain since last night and could not sleep at all. EMS was called as patient states he could not get up and was experiencing body twitches. In the room, he reports pain is better but notes he can barely move. On triage, nothing is noted to aggravate/ alleviate Sx. Home medications and allergies are reviewed. - History Of Current Complaint Chief Complaint: EDOverdose Stated Complaint: OVERDOSE Time Seen by Provider: 02/17/18 11:55 Hx Obtained From: Patient Onset/Duration of Drug/ETOH Abuse: Hours - onset around 0700 today Ingestion History: Type/Name Of Drug - tramadol Overdose Characteristics: Oral - tramadol Severity Currently: None Character: Other - fatigued Aggravating Factor(s): Nothing Alleviating Factor(s): Nothing Associated Signs And Symptoms: Other: - fatigue - Allergies/Home Medications Allergies/Adverse Reactions: Allergies Allergy/AdvReac Type Severity Reaction Status Date / Time hydralazine Allergy Intermediate Shortness Verified 02/13/18 13:14 of Breath prednisone Allergy Hallucinati Verified 02/13/18 13:14 ons Home Medications: Home Medications Buprenorphine [Butrans] 7.5 mcg TRANSDERM WEEKLY 02/17/18 [History Confirmed ] Calcitriol CAP* [Rocaltrol CAP*] 1 mcg PO DAILY 02/17/18 [History Confirmed ] Metoprolol Succinate XL TAB* [Toprol XL TAB*] 25 mg PO DAILY 02/17/18 [History Confirmed 02/17/18] Mycophenolate Sodium [Mycophenolic Acid] 720 mg PO BID 02/17/18 [History Confirmed 02/17/18] Ondansetron TAB* [Zofran 4 MG Tab*] 4 - 8 mg PO DAILY PRN 02/17/18 [History Confirmed 02/17/18] traMADol TAB* [Ultram*] 50 mg PO Q4HR PRN 02/17/18 [History Confirmed 02/17/18] PMH/Surg Hx/FS Hx/Imm Hx Endocrine/Hematology History: Reports: Hx Systemic Lupus Erythematosus Denies: Hx Diabetes, Hx Thyroid Disease Cardiovascular History: Reports: Hx Hypertension, Other Cardiovascular Problems/ Disorders - hx pericarditis Denies: Hx Pacemaker/ICD, Hx Peripheral Vascular Disease Respiratory History: Reports: Hx Asthma, Hx Pneumonia, Hx Seasonal Allergies, Other Respiratory Problems/Disorders - Hx pleurisy. History: Reports: Hx Chronic Renal Failure, Hx Dialysis - peritoneal, on cycler at night , Hx Renal Disease, Other Problems/Disorders - Kidney cancer , unilateral nephrectomy Musculoskeletal History: Reports: Other Musculoskeletal History - Lupus: generlized pain; Bilateral Neuropathy Feet Denies: Hx Arthritis, Hx Osteoporosis Sensory History: Reports: Hx Contacts or Glasses Denies: Hx Hearing Aid Opthamlomology History: Reports: Hx Contacts or Glasses Neurological History: Reports: Other Neuro Impairments/Disorders - Nerve pain - generalized Denies: Hx Seizures, Hx Transient Ischemic Attacks (TIA) Psychiatric History: Reports: Hx Anxiety, Hx Panic Disorder - Cancer History Cancer Type, Location and Year: Kidney cancer, September 2014 in [place]. Hx Chemotherapy: Yes - For lupus. - Surgical History Surgery Procedure, Year, and Place: Nephrectomy, splenectomy, Inguinal hernia repaired, multiple fistula placements Hx Anesthesia Reactions: No Infectious Disease History: No Infectious Disease History: Reports: Hx of Known/Suspected MRSA Denies: Traveled Outside the in Last 30 Days - Family History Known Family History: Positive: Hypertension, Diabetes, Other - lupus - Social History Alcohol Use: None Hx Substance Use: No Substance Use Type: Reports: None Hx Tobacco Use: Yes Smoking Status (MU): Former Smoker Type: Cigarettes Amount Used/How Often: 5-10 cigs per day for 15 years until quit Length of Time of Smoking/Using Tobacco: 15 years Have You Smoked in the Last Year: Yes Review of Systems Positive: Fatigue, Other - tramadol overdose Positive: Other - NEGATIVE: SI . Negative: Depressed All Other Systems Reviewed And Are Negative: Yes Physical Exam - Summary Physical Exam Summary: GENERAL: Patient is a well-developed and nourished male who is lying comfortable in the stretcher. Patient is not in any acute respiratory distress. Midline chest scar, peritoneal catheter on right side of abdomen, fistula at LUE. HEAD AND FACE: Normocephalic EYES: Pupils are dilated, sluggish, and reactive, EOMI x 2 EARS: Hearing grossly intact. MOUTH: Oropharynx within normal limits. NECK: Supple, trachea is midline, no adenopathy, no JVD, no carotid bruit. CHEST: Symmetric, no tenderness at palpation LUNGS: Clear to auscultation bilaterally. No wheezing or crackles. CVS: Regular rate and rhythm, S1 and S2 present, no murmurs or gallops appreciated. ABDOMEN: Soft, non-tender. Bowel sounds are normal. No abdominal abnormal pulsations. EXTREMITIES: Full ROM in all major joints, no edema, no cyanosis or clubbing. NEURO: Alert and oriented x 3. No acute neurological deficits. Speech is normal and follows commands. SKIN: Dry and warm Triage Information Reviewed: Yes Vital Signs On Initial Exam: Initial Vitals Temp Pulse Resp BP Pulse Ox 98.5 F 90 18 140/99 90 02/17/18 11:52 02/17/18 11:52 02/17/18 11:52 02/17/18 11:52 02/17/18 11:52 Vital Signs Reviewed: Yes Procedures - Intubation Time of Intubation: 14:00 Intubation Method: orotracheal Tube Size (cm): 7.5 Breath Sounds after Intubation: equal Intubation Complications: no complications Post Intubation Xray: Yes - CXR will be done upstairs with Dr. Clements Diagn[facility] - Vital Signs Vital Signs Temp Pulse Resp BP Pulse Ox 02/17/18 12:01 99.1 F 88 12 02/17/18 11:52 98.5 F 90 18 140/99 90 - Laboratory Result Diagrams: 02/17/18 12:32 02/17/18 20:45 Lab Statement: Any lab studies that have been ordered have been reviewed, and results considered in the medical decision making process. - CT brain ct CT Interpretation: No Acute Changes CT Interpretation Completed By: Radiologist - No intracranial mass or hemorrhage is noted, this report was reviewed by juan pablo gillette. - EKG 1230 Cardiac Rate: NL - rate of 88 bpm EKG Rhythm: Sinus Rhythm EKG Interpretation: some ST elevation in lead III, LVH, prolonged LA interval Re-Evaluation - Re-Evaluation First Eval Re-Evaluation Time: 13:39 Comment: patient started to twitch in the room, discussed admission, patient is agreeable with admission. Second Eval Re-Evaluation Time: 13:49 Comment: Patient began to have a tonic clonic seizure, Dr. Smith present at bedside. Patient was given Ativan, became hypoxic, dropped o2 sats to 80s, needed to be intubated, RSI, no medicine, [address] [facility], CXR ordered, Dr. Clements will be called. Course/Dx - Course Course Of Treatment: Patient is a 33 y/o M w/ c/o possible overdose taking 50 mg x6 of tramadol at around 0700 today. PMHx of lupus, nephritis, kidney CA, and aortic valve vegetation. Patient is on dialysis. Patient has had lupus since [age] years of age. PSHx for aortic valve vegetation two months ago, left nephrectomy. Patient is on plaquenil, mycophenolic acid, trazodone, gabapentin. SI and PMHx of depression are denied. He reports chronic pain and states that he took this amount of tramadol as he was expreriencing significant pain since last night and could not sleep at all. EMS was called as patient states he could not get up and was experiencing body twitches. In the room, he reports pain is better but notes he can barely move. Physical exam showed midline chest scar , peritoneal catheter side on abdomen right , fistula at LUE. Pupils are dilated, sluggish and reactive. Brain CT showed No intracranial mass or hemorrhage. EKG showed sinus rhythm w/ 88 BPM, some ST elevation in lead III, prolonged LA interval. At 1349, Patient began to have a tonic clonic seizure, Dr. Smith present at bedside. Patient was given Ativan, fluids, became hypoxic , dropped o2 sats to 80s, needed to be intubated, RSI, no medicine, 22 at the lip, CXR ordered. 1400 - Dr. King at bedside, recommends EEG. However, patient became hypoxic, patient had to be intubated at this point. Dr. Clements was called at 1411, he came to ED to see patient. 1430 - After evaluated patient , Dr. Clements accepts admission of patient to ICU. Dx of tonic clonic seizure, tramadol overdose. - Diagnoses Provider Diagnoses: Tonic-clonic generalized seizure, Mild tramadol abuse - Physician Notifications Discussed Care Of Patient With: Khloe King Time Discussed With Above Provider: 14:00 Instructed by Provider To: Other - 1400 - Dr. King at bedside, recommends EEG. However, patient became hypoxic, patient had to be intubated. Dr. Clements was called at 1411, he came to ED to see patient. 1430 - After evaluated patient , Dr. Clements accepts admission of patient to ICU. - Critical Care Time Critical Care Time: 30-74 min - 45 minutes CC Discharge - Sign-Out/Discharge Documenting (check all that apply): Patient Departure - admit All imaging exams completed and their final reports reviewed: Yes - Discharge Plan Condition: Fair Disposition: ADMITTED TO [facility] - Billing Disposition and Condition Condition: FAIR Disposition: Admitted to [facility] - Attestation Statements Document Initiated by Scribe: Yes Documenting Scribe: Woodrow Ricks Provider For Whom Scribe is Documenting (Include Credential): Dhruv Smith MD Scribe Attestation: IWoodrow , scribed for Dhruv Smith MD on 02/17/18 at 2126. Scribe Documentation Reviewed: Yes Provider Attestation: The documentation as recorded by the sarahibWoodrow jeter accurately reflects the service I personally performed and the decisions made by me, Dhruv Smith MD
[2018-02-17 12:58] LABS: Hematocrit 30 % (42-52); Hemoglobin 9.8 g/dl (14.0-18.0); Mean Corpuscular HGB Conc 33 g/dl (31-36); Mean Corpuscular Hemoglobin 31 pg (27-31); Mean Corpuscular Volume 96 fL (80-94); Mean Platelet Volume 7.7 um3 (7.4-10.4); Platelet Count 118 10^3/ul (150-450); Red Blood Count 3.12 10^6/ul (4.00-5.40); Red Cell Distribution Width 16 % (10.5-15); White Blood Count 4.6 10^3/ul (3.5-10.8)
[2018-02-17 13:06] LABS: EGFR Non-African American 5.4 (>60)
[2018-02-17 13:17] LABS: ABS Basophils 0 10^3/ul (0-0.2); ABS Eosinophils 0 10^3/ul (0-0.6); ABS Lymphocytes 0.6 10^3/ul (1.0-4.8); ABS Neutrophils 2.9 10^3/ul (1.5-7.7); ABS Nucleated RBC 0.1 10^3/ul; Eosinophil % 0 % (0-6); Lymphocyte % 12.7 % (25-47); Nucleated Red Blood Cells % 2.7
--- NOTE | 2018-02-17 13:23 | RAD ---
Indication: Fall, head injury. CT of the brain was performed without IV contrast. Ventricular structures are midline. No midline shift is noted. The extra-axial spaces are unremarkable. There is no evidence of intracranial mass or hemorrhage. No other high or low density lesions are identified. Mastoid air cells and paranasal sinuses are otherwise unremarkable. The orbits are unremarkable with visualized. IMPRESSION: No intracranial mass or hemorrhage is noted.
[2018-02-17] MEDS ORDERED: LORazepam INJ* 2 MG/ML 1 ML VIAL IV PUSH PRN (13:42)
[2018-02-17] MEDS ORDERED: NS 0.9% 1000 ML* 250 ML IV ONE (13:42)
[2018-02-17] MEDS ORDERED: Succinylcholine* 20 MG/ML 10 ML VIAL ONE (14:12)
[2018-02-17] MEDS ORDERED: LORazepam INJ* 2 MG/ML 1 ML VIAL ONE ×2 (14:35→14:36)
[2018-02-17] MEDS ORDERED: LORazepam INJ* 2 MG/ML 1 ML VIAL IV PUSH ONE (15:28)
--- NOTE | 2018-02-17 15:38 | CONSULT ---
Consult Consult: NEUROLOGY CONSULTATION CC: seizure HPI: This is a 33 yr old man with extensive past medical history as noted below presenting after taking excessive tramadol. The patient had a GTC shortly after presenting to the ED and the patient was poorly responsive after that. Ativan was given and subsequently the patient was intubated for airway protection. Per brother in law who was at the bedside the patient has no history of seizures but was scheduled to have a sleep study for thrashing movements at night time. PAST MEDICAL HISTORY: 1. Lupus. 2. History of lupus pericarditis. 3. History of lupus nephritis. 4. End-stage renal disease. 5. 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 6. Hypertension. PAST SURGICAL HISTORY: 1. Left inguinal hernia repair. 2. Splenectomy. 3. Left upper extremity dialysis fistula. 4. Left nephrectomy secondary to renal cell carcinoma. MEDS: Hydroxychloroquine TAB* [Plaquenil TAB*] 200 mg PO BID 06/14/16 [History Confirmed 02/17/18] Sertraline* [Zoloft*] 75 mg PO DAILY 07/26/16 [History Confirmed 02/17/18] Sevelamer TAB* [Renvela TAB*] 2,400 mg PO AC 08/16/16 [History Confirmed ] Cetirizine* [ZyrTEC 10 MG TAB*] 5 mg PO DAILY 08/06/17 [History Confirmed ] Methylphenidate TAB* [Ritalin TAB*] 10 mg PO DAILY PRN 08/06/17 [History Confirmed 02/17/18] Omeprazole CAP* [Prilosec CAP* 20 MG] 20 mg PO DAILY 08/06/17 [History Confirmed 02/17/18] traZODone TAB* [Desyrel TAB*] 50 mg PO BEDTIME PRN 08/06/17 [History Confirmed 02/17/18] Folic Acid TAB* [Folvite TAB*] 5 mg PO DAILY 10/19/17 [History Confirmed ] Gabapentin CAP(*) [Neurontin 100 mg CAP(*)] 300 mg PO TID 10/19/17 [History Confirmed 02/17/18] Acetaminophen [Tylenol Extra Strength] 2,000 mg PO QAM PRN 01/11/18 [History Confirmed 02/17/18] Buprenorphine [Butrans] 7.5 mcg TRANSDERM WEEKLY 02/17/18 [History Confirmed ] Calcitriol CAP* [Rocaltrol CAP*] 1 mcg PO DAILY 02/17/18 [History Confirmed ] Metoprolol Succinate XL TAB* [Toprol XL TAB*] 25 mg PO DAILY 02/17/18 [History Confirmed 02/17/18] Mycophenolate Sodium [Mycophenolic Acid] 720 mg PO BID 02/17/18 [History Confirmed 02/17/18] Ondansetron TAB* [Zofran 4 MG Tab*] 4 - 8 mg PO DAILY PRN 02/17/18 [History Confirmed 02/17/18] traMADol TAB* [Ultram*] 50 mg PO Q4HR PRN 02/17/18 [History Confirmed 02/17/18] HOME MEDICATIONS: 1. Tylenol 650 mg p.o. q.6 hours as needed. 2. Amlodipine 10 mg p.o. daily. 3. Calcitriol 1 mcg p.o. daily. 4. Carvedilol 3.125 mg p.o. b.i.d. 5. Sertraline 5 mg p.o. daily. 6. Colace 100 mg p.o. b.i.d. 7. Folic acid 5 mg p.o. daily. 8. Gabapentin 200 mg p.o. t.i.d. - the patient states he is not taking this medication. 9. Plaquenil 200 mg p.o. b.i.d. 10. Hydroxyzine 25 mg p.o. t.i.d. 11. Methylphenidate 10 mg p.o. daily. 12. Omeprazole 20 mg p.o. daily. 13. Prazosin 1 mg p.o. b.i.d. 14. Prochlorperazine 10 mg p.o. q.8 hours as needed. 15. Ropinirole 0.5 mg p.o. at h.s. 16. Sertraline 75 mg p.o. daily. 17. Sevelamer 2400 mg p.o. q.a.c. 18. Trazodone 50 mg p.o. q.h.s. 19. Mycophenolate sodium 720 mg p.o. daily. ALLERGIES: HYDROCHLOROTHIAZIDE and PREDNISONE. FAMILY HISTORY: Mother is living, she is 79. She has diabetes, hypothyroid, vascular dementia, recent CVA and VA. Dad is living and is 81. He has a history of diabetes, Graves disease and TIAs as well as Parkinson. SOCIAL HISTORY: The patient is nonsmoker. He quit approximately 2 to 3 years ago. He does not drink alcohol. He does not have any recreational drug use. Surrogate decision maker in the event he is unable to make his own decisions is his sister, Mandy, her phone number is [phone]. REVIEW OF SYSTEMS: unable to obtain due to patient condition Vital Signs Temp 98.6 F 02/17/18 14:57 Pulse 89 02/17/18 15:00 Resp 40 02/17/18 15:00 BP 112/80 02/17/18 14:57 Pulse Ox 100 02/17/18 15:00 Intake & Output 02/16/18 02/17/18 02/17/18 18:59 06:59 18:59 Weight 145 lb Physical Exam performed shortly after the GTC increased work of breathing Unresponsive Pupils 4mm poorly reactive Normal tone No response to noxious stimuli Laboratory Results - last 24 hr 02/17/18 02/17/18 12:32 12:32 WBC 4.6 RBC 3.12 L Hgb 9.8 L Hct 30 L MCV 96 H MCH 31 MCHC 33 RDW 16 H Plt Count 118 L MPV 7.7 Neut % (Auto) 64.4 Lymph % (Auto) 12.7 L [place] % (Auto) 22.5 H Eos % (Auto) 0 Baso % (Auto) 0.4 Absolute Neuts (auto) 2.9 Absolute Lymphs (auto) 0.6 L Absolute Monos (auto) 1.0 H Absolute Eos (auto) 0 Absolute Basos (auto) 0 Absolute Nucleated RBC 0.1 Nucleated RBC % 2.7 Sodium 127 L Potassium 5.1 H Chloride 89 L Carbon Dioxide 25 Anion Gap 13 H BUN 72 H Creatinine 10.85 H Est GFR ( Amer) 6.6 Est GFR (Non-Af Amer) 5.4 BUN/Creatinine Ratio 6.6 L Glucose 112 H Calcium 9.3 Total Bilirubin 0.30 AST 13 ALT 14 Alkaline Phosphatase 50 Total Protein 6.1 L Albumin 3.6 Globulin 2.5 Albumin/Globulin Ratio 1.4 Salicylates < 2.50 Acetaminophen < 15 Serum Alcohol < [address] head: no acute changes EEG prelim: mild to moderate generalized slowing A/P Seizure likely provoked by tramadol use Altered mental status could be post - ictal or medication effect. If no resolution may need further imaging Will continue to follow
[2018-02-17] MEDS ORDERED: Morphine VIAL* 4 MG/ML VIAL (1 ml vial) IV ONE (17:03)
[2018-02-17] MEDS: Morphine VIAL* 4 MG/ML VIAL (1 ml vial) IV ONE ×2 (17:29→17:51)
[2018-02-17] MEDS ORDERED: Propofol* 100 ML ONE (17:39)
[2018-02-17] MEDS: Propofol* 100 ML IV SCH (17:51)
--- NOTE | 2018-02-17 17:57 | RAD ---
HISTORY: L central IJ placement COMPARISONS: November 01, 2017 VIEWS: 1: frontal AP view of the chest at 5:36 PM FINDINGS: LINES AND TUBES: A left internal jugular venous catheter is noted with the tip overlying the cavoatrial junction. CARDIOMEDIASTINAL SILHOUETTE: The cardiac silhouette is enlarged. The cardiomediastinal silhouette is otherwise normal for portable technique. PLEURA: There is blunting of the right costophrenic angle. There is no appreciable pneumothorax. LUNG PARENCHYMA: The lungs are clear. ABDOMEN: The upper abdomen is clear. There is no subphrenic gas. BONES AND SOFT TISSUES: The patient is status post median sternotomy. IMPRESSION: LINES AND TUBES ABOVE. SMALL RIGHT PLEURAL EFFUSION.
--- NOTE | 2018-02-17 19:26 | HP ---
ADMISSION HISTORY AND PHYSICAL: DATE OF ADMISSION: 02/17/18 REASON FOR ADMISSION: Grand mal seizure and change in mental status. HISTORY OF PRESENT ILLNESS: The patient is a 33-year-old white male with a history of lupus complicated by nephritis, end-stage renal failure, renal cell carcinoma (status post left nephrectomy), and severe hypertension, who is currently managed on peritoneal dialysis and was brought to the emergency department this morning with altered mental status and had a generalized seizure in the ED. There is a recent Hx of excessive tramadol use for neuropathic pain. Dialysis has been regular, and no Hx trauma. CAT scan in the emergency department was unrevealing. The BUN and creatinine were elevated, but not as high as the usual baseline. Other HX: Patient had open heart surgery this summer (elsewhere) and apparently had an aortic valve repair/replacement. Is not on anticoagulation. The patient was admitted with the diagnosis of generalized seizure secondary to uremia vs drug OD vs lupus (microinfarctions, cerebritis, etc). Recent history was very limited and was provided by the patient's [id number]. MEDICATIONS: Outpatient meds: 1. Gabapentin 300 mg 3 times daily. 2. Metoprolol 25 mg daily. 3. Zoloft 75 mg daily. 4. Renvela 2400 mg in the evening. 5. Plaquenil 200 mg twice daily. 6. Calcitriol 1 mcg daily. 7. Folic acid 5 mg daily. 8. Prilosec 20 mg daily. LISTED DRUG ALLERGIES: HYDRALAZINE (reaction apparently shortness of breath) and PREDNISONE (reaction apparently hallucinations). REVIEW OF SYSTEMS: Unobtainable. PHYSICAL EXAMINATION GENERAL: The patient was unresponsive, but had just received sedation for intubation. VITAL SIGNS: Temp 98.6 temporal, blood pressure 112/80, heart rate 90 and regular, respiratory rate 18, O2 sat 100% with an FiO2 of 100%. HEENT: Pupils were mid position and reactive. Orotracheal tube was in place. NECK: Supple. LUNGS: Clear to auscultation. CARDIAC: Exam revealed no murmurs or rubs. ABDOMEN: Not distended and bowel sounds were hypoactive. EXTREMITIES: Cool, but not cyanotic and not edematous. ADMISSION LABORATORY DATA: Significant for sodium of 127, potassium 5.1, chloride 89, BUN is 72, creatinine 10.85, bicarb was 25. White count of 4.6 and hemoglobin of 9.8. Serum level of salicylate, acetaminophen, and alcohol were nontoxic. IMAGING: Chest x-ray and electrocardiogram pending. IMPRESSION: Generalized seizure, possibly secondary to uremia vs drug OD vs lupus. MANAGEMENT PLAN: We will provide general supportive care including mechanical ventilation and blood pressure management if necessary. Will speak with the nephrology service today about the feasibility or the need for emergent dialysis. Will also consult neurology for evaluation of seizure. I have spoken to the patient's [id number]. The patient's sister (health care proxy) is apparently on her way in to the hospital. TIME SPENT: Critical care time 60 minutes. [id number]/CPS #: [id number] DARRELL
[2018-02-17] MEDS: Sevelamer TAB* 800 MG PO SCH (19:34)
[2018-02-17] MEDS: MYCOPHENOLATE 360 MG PO SCH (20:51)
[2018-02-17] MEDS: Gabapentin CAP(*) 300 MG PO SCH ×2 (21:36→21:50)
[2018-02-18 01:18] LABS: EGFR Non-African American 5.1 (>60)
[2018-02-18] MEDS ORDERED: Dextrose 50% Syringe 50 ML* 25 GM/50 ML SYRINGE ONE (01:40)
[2018-02-18] MEDS: Propofol* 100 ML IV SCH ×2 (03:50→08:35)
[2018-02-18 04:02] LABS: Urine Appearance Cloudy; Urine Blood 3+ (Negative); Urine Color Yellow; Urine Ketones Negative (Negative); Urine Protein 2+(100 mg/dL) (Negative); Urine Red Blood Cell 3+(>10/hpf) (Absent); Urine Urobilinogen Negative (Negative); Urine White Blood Cell 1+(6-10/hpf) (Absent)
[2018-02-18 05:30] LABS: Hematocrit 25 % (42-52); Hemoglobin 8.4 g/dl (14.0-18.0); Mean Corpuscular HGB Conc 34 g/dl (31-36); Mean Corpuscular Hemoglobin 32 pg (27-31); Mean Corpuscular Volume 96 fL (80-94); Mean Platelet Volume 9.1 um3 (7.4-10.4); Platelet Count 121 10^3/ul (150-450); Red Blood Count 2.61 10^6/ul (4.00-5.40); Red Cell Distribution Width 17 % (10.5-15); White Blood Count 6.3 10^3/ul (3.5-10.8)
[2018-02-18 05:35] LABS: INR 0.88 (0.77-1.02)
[2018-02-18 05:52] LABS: EGFR Non-African American 4.9 (>60)
[2018-02-18] MEDS: Dextrose 50% Syringe 50 ML* 25 GM/50 ML SYRINGE IV PUSH PRN (05:58)
[2018-02-18] MEDS: Sevelamer TAB* 800 MG PO SCH ×3 (07:46→16:21)
[2018-02-18] MEDS: Folic Acid TAB* 1 MG PO SCH (07:52)
[2018-02-18] MEDS: Gabapentin CAP(*) 300 MG PO SCH ×3 (07:53→20:27)
[2018-02-18] MEDS: Omeprazole CAP* 20 MG PO SCH (07:53)
--- NOTE | 2018-02-18 08:09 | RAD ---
HISTORY: OGT placement COMPARISONS: February 17, 2018 - 6:00 PM VIEWS: 1: frontal AP view of the chest at 8:53 PM FINDINGS: LINES AND TUBES: An endotracheal tube is noted with the tip overlying the trachea between the clavicles and the dana. A gastric tube is noted, with the tip in the left upper quadrant in a prepyloric position.. The left internal jugular venous catheter is noted with the tip overlying the cavoatrial junction. CARDIOMEDIASTINAL SILHOUETTE: The cardiomediastinal silhouette is normal for portable technique. PLEURA: There is blunting of the costophrenic angles bilaterally. LUNG PARENCHYMA: There is patchy alveolar opacification of the lung bases bilaterally base. ABDOMEN: The upper abdomen is clear. There is no subphrenic gas. BONES AND SOFT TISSUES: The patient is status post median sternotomy. IMPRESSION: 1. LINES AND TUBES ABOVE. 2. SMALL RIGHT PLEURAL EFFUSION WITH BIBASILAR ATELECTASIS VERSUS EARLY CONSOLIDATION.. R1
--- NOTE | 2018-02-18 10:55 | PRO ---
PROCEDURE NOTE: DATE OF PROCEDURE: 02/17/18 PROCEDURE: Insertion of a triple lumen central venous catheter. DESCRIPTION OF PROCEDURE: The patient is a 33-year-old male with a history of lupus and end-stage renal disease who was admitted following an episode of a grand mal seizure possibly related to uremia. Because of poor IV access, a triple lumen central venous catheter was inserted into his left internal jugular vein under ultrasound guidance and catheter was advanced to the junction between the superior vena cava and the right atrium on the chest x- ray. There were no complications to the procedure and postprocedural chest x- ray showed proper catheter placement and no evidence of pneumothorax. [id number]/CPS #: [id number] [facility]ITALAbiel
[2018-02-18] MEDS: Metoprolol Succinate XL TAB* 25 MG PO SCH (11:31)
[2018-02-18] MEDS: Calcitriol CAP* 0.25 MCG PO SCH (11:31)
[2018-02-18] MEDS: Morphine VIAL* 4 MG/ML VIAL (1 ml vial) IV PRN ×3 (11:32→20:27)
[2018-02-18] MEDS: MYCOPHENOLATE 360 MG PO SCH ×2 (11:38→20:28)
--- NOTE | 2018-02-18 14:00 | PN ---
Date of Service: 02/18/18 Critical Care Services: Patient awake, and was weaned and extubated this AM. Has done well since. No seizure since admission. Neurology service has evaluated patient, and an MRI is scheduled. Vital Signs: Temp Pulse Resp BP SpO2 FiO2 98.8 F 99 30 112/60 93 30 Physical Exam: Gen:Alert, oriented HEENT: no facial asymmetry Lungs:clear Cardiac: reg rhythm. no murmurs or rubs Extremities:no cyanosis or edema Fluid Balance (Past 24 Hours): 02/18/18 06:59 Intake Total 719.5 Output Total 9 Balance 710.5 Weight 156 lb 1.396 oz Intake: IV Fluids 598 LR 598 Medicated IV 121.5 CC - Propofol/Diprivan 121.5 Output: Araya 9 Labs: 02/17/18 02/17/18 02/18/18 20:45 20:45 00:55 WBC RBC Hgb Hct MCV MCH MCHC RDW Plt Count MPV INR (Anticoag Therapy) Sodium 126 L 127 L Potassium 5.3 H 5.0 Chloride 90 L 90 L Carbon Dioxide 23 25 Anion Gap 13 H 12 H BUN 79 H 81 H Creatinine 11.66 H 11.52 H Est GFR ( Amer) 6.0 6.1 Est GFR (Non-Af Amer) 5.0 5.1 BUN/Creatinine Ratio 6.8 L 7.0 L Glucose 79 67 L POC Glucose (mg/dL) Lactic Acid 0.5 Calcium 8.6 8.5 L Total Bilirubin AST ALT Alkaline Phosphatase Total Creatine Kinase 31 Total Protein Albumin Globulin Albumin/Globulin Ratio Urine Color Urine Appearance Urine pH Ur Specific Dupo Urine Protein Urine Ketones Urine Blood Urine Nitrate Urine Bilirubin Urine Urobilinogen Ur Leukocyte Esterase Urine WBC (Auto) Urine RBC (Auto) Ur Squamous Epith Cells Urine Bacteria Granular Casts Urine Glucose Urine Opiates Screen Ur Barbiturates Screen Ur Phencyclidine Scrn Ur Amphetamines Screen U Benzodiazepines Scrn Urine Cocaine Screen U Cannabinoids Screen 02/18/18 02/18/18 02/18/18 03:49 03:49 04:20 WBC RBC Hgb Hct MCV MCH MCHC RDW Plt Count MPV INR (Anticoag Therapy) Sodium Potassium Chloride Carbon Dioxide Anion Gap BUN Creatinine Est GFR ( Amer) Est GFR (Non-Af Amer) BUN/Creatinine Ratio Glucose POC Glucose (mg/dL) 81 Lactic Acid Calcium Total Bilirubin AST ALT Alkaline Phosphatase Total Creatine Kinase Total Protein Albumin Globulin Albumin/Globulin Ratio Urine Color Yellow Urine Appearance Cloudy Urine pH 7.0 Ur Specific Dupo 1.010 Urine Protein 2+(100 mg/dl) A Urine Ketones Negative Urine Blood 3+ A Urine Nitrate Negative Urine Bilirubin Negative Urine Urobilinogen Negative Ur Leukocyte Esterase Negative Urine WBC (Auto) 1+(6-10/hpf) A Urine RBC (Auto) 3+(>10/hpf) A Ur Squamous Epith Cells Present A Urine Bacteria Absent Granular Casts Present A Urine Glucose 2+(150 mg/dl) A Urine Opiates Screen None detected Ur Barbiturates Screen None detected Ur Phencyclidine Scrn None detected Ur Amphetamines Screen None detected U Benzodiazepines Scrn None detected Urine Cocaine Screen None detected U Cannabinoids Screen None detected 02/18/18 02/18/18 02/18/18 05:20 05:20 05:20 WBC 6.3 RBC 2.61 L Hgb 8.4 L Hct 25 L MCV 96 H MCH 32 H MCHC 34 RDW 17 H Plt Count 121 L MPV 9.1 INR (Anticoag Therapy) 0.88 Sodium 126 L Potassium 4.7 Chloride 90 L Carbon Dioxide 23 Anion Gap 13 H BUN 82 H Creatinine 11.83 H Est GFR ( Amer) 5.9 Est GFR (Non-Af Amer) 4.9 BUN/Creatinine Ratio 6.9 L Glucose 63 L POC Glucose (mg/dL) Lactic Acid Calcium 8.5 L Total Bilirubin 0.30 AST 17 ALT 24 Alkaline Phosphatase 111 H Total Creatine Kinase Total Protein 5.1 L Albumin 2.9 L Globulin 2.2 Albumin/Globulin Ratio 1.3 Urine Color Urine Appearance Urine pH Ur Specific Dupo Urine Protein Urine Ketones Urine Blood Urine Nitrate Urine Bilirubin Urine Urobilinogen Ur Leukocyte Esterase Urine WBC (Auto) Urine RBC (Auto) Ur Squamous Epith Cells Urine Bacteria Granular Casts Urine Glucose Urine Opiates Screen Ur Barbiturates Screen Ur Phencyclidine Scrn Ur Amphetamines Screen U Benzodiazepines Scrn Urine Cocaine Screen U Cannabinoids Screen Studies: EEG (yesterday) - no evidence of seizure activity Nutrition: Reg diet to be started Impression: No repeat seizures. Most likely is drug-related vs lupus-related. Plan: Per neurology service, patient to have an MRI. Gabapentin dose has also been increased (for anticonvulsant Rx). Will probably receive daily peritoneal dialysis. Critical Care Time: 40 minutes (including time to extubate patient).
--- NOTE | 2018-02-18 16:06 | CONS ---
NEUROLOGY FOLLOWUP CONSULTATION NOTE: DATE OF FOLLOWUP: 02/18/18 LOCATION: He is in ICU bed 5. REFERRING PHYSICIAN: Dr. Clements. CHIEF COMPLAINT: Seizure. INTERVAL HISTORY: Since yesterday, Jose Enrique has been extubated. He has not had anymore seizures. He is a bit encephalopathic and complains of hand and feet pain, which he says is new. His friends who ac company him indicate that it has been longstanding as do the medical records. He denies headache. MEDICATIONS: Reviewed and he is on: 1. Gabapentin 300 mg t.i.d. 2. Folic acid 5 mg p.o. daily. 3. Calcitriol 1 mcg p.o. daily. 4. Metoprolol 25 mg p.o. daily. 5. Morphine 4 mg IV q.4 hours as needed for pain. 6. Mycophenolate sodium 720 mg p.o. b.i.d. 7. Omeprazole 20 mg p.o. daily. 8. Renvela 2400 mg p.o. daily. PHYSICAL EXAMINATION: He is well nourished and well hydrated. Temperature 99.1 most recently, blood pressure 134/93, heart rate is in the 90s and regular. Respiratory rate is 18 and oxygen saturation is 93% on room air. Heart is in a regular rhythm without murmurs. Neck is supple. Oral mucosa is m oist and atraumatic. Neurologically, pupils react equally to light from 4 to 2 mm. Eye movements are full. Funduscopic e xam reveal sharp discs. Facial musculature is symmetric. Speech is mildly dysarthric. Motor exam re veals pain with testing of the distal extremities. He has antigravity strength in all limbs. He has prominent asterixis in the extended wrists. He is oriented to person and place. He has poor attention and concentration. Language is fluent. DIAGNOSTIC STUDIES/LAB DATA: Laboratory data from today, notable for a CBC with a hemoglobin of 8.4, which is down from 9.8 yesterday. Platelet count this morning is 121,000, it was 118,000 yesterday. He has 22% monocytes. Chemistry profile notable for BUN of 82, creatinine of 11.8. Sodium this mo rning is 126. Calcium 8.5. Brain CT scan from yesterday interpreted as normal. IMPRESSION: Impression is that of a new onset of seizure, possibly precipitated by tramadol. He is currently an inexact historian, but reports taking anywhere from 0 to 6 tablets a day. His EEG was v erbally reported as showing diffuse slowing. He is at risk for a lupus cerebritis or cardioembolic d isease based on recent cardiac surgery. RECOMMENDATIONS: I recommend increasing his gabapentin to 600 mg 3 times a day for pain control, but also as an anticonvulsant. I recommend obtaining an MRI of his brain during this hospitalization, c urrently it is Tuesday and so I would recommend doing it Tuesday morning unless he deteriorates soone r. I recommend repeating his EEG on Tuesday as well. Recommend checking a magnesium level. I will c alexey to follow him with you. [id number]/[facility] #: [id number]
[2018-02-18 18:23] LABS: EGFR Non-African American 4.9 (>60)
[2018-02-18] MEDS ORDERED: Mycophenolate Mofetil CAP(*) 250 MG PO ONE (21:00)
--- NOTE | 2018-02-19 00:54 | PN ---
Hospitalist Progress Note Date of Service: 02/19/18 L IJ TLC removed in trendelenburg on exhalation. Pressure held x 2 min. Tolerated well. No bleeding.
[2018-02-19] MEDS: Morphine VIAL* 4 MG/ML VIAL (1 ml vial) IV PRN (04:15)
[2018-02-19] MEDS: Dextrose 50% Syringe 50 ML* 25 GM/50 ML SYRINGE IV PUSH PRN (08:42)
[2018-02-19] MEDS: Omeprazole CAP* 20 MG PO SCH (08:54)
[2018-02-19] MEDS: Gabapentin CAP(*) 300 MG PO SCH ×2 (08:55→14:56)
[2018-02-19] MEDS: Folic Acid TAB* 1 MG PO SCH (08:56)
[2018-02-19] MEDS: Metoprolol Succinate XL TAB* 25 MG PO SCH (08:57)
[2018-02-19] MEDS: Sevelamer TAB* 800 MG PO SCH ×3 (08:59→18:06)
[2018-02-19] MEDS: Calcitriol CAP* 0.25 MCG PO SCH (09:01)
[2018-02-19] MEDS: Hydroxychloroquine TAB* 200 MG PO SCH ×2 (09:05→20:28)
[2018-02-19] MEDS ORDERED: oxyCODONE TAB* 5 MG TAB PO PRN (10:19)
--- NOTE | 2018-02-19 10:24 | PN ---
Subjective Date of Service: 02/19/18 Interval History: Pt pulled his peripheral IV today. states it's "bothering him". Hypoglycemia with sugar at 38 noted this AM. Pt doesn't not remember how he got to hospital, does not remember overdosing on his pain meds. C/o pain all over. D/w family (sister Mandy) in room . They are concerned that pt is not himself today and appears worse to them c/w yesterday Objective Active Medications: Calcitriol (Rocaltrol Cap*) 1 mcg PO DAILY [facility] Last Admin: 02/19/18 09:01 Dose: 1 mcg Dextrose (D50w Syringe 50 Ml*) 25 gm IV PUSH ONCE PRN PRN Reason: FS < 60 Last Admin: 02/19/18 08:42 Dose: 25 gm Folic Acid (Folvite Tab*) 5 mg PO DAILY [facility] Last Admin: 02/19/18 08:56 Dose: 5 mg Gabapentin (Neurontin Cap(*)) 600 mg PO TID [facility] Last Admin: 02/19/18 08:55 Dose: 600 mg Hydroxychloroquine Sulfate (Plaquenil Tab*) 200 mg PO BID [facility] Last Admin: 02/19/18 09:05 Dose: 200 mg Lorazepam (Ativan Inj*) 0.5 mg IV PUSH Q4H PRN PRN Reason: ANXIETY Last Admin: 02/17/18 13:59 Dose: 0.5 mg Metoprolol Succinate (Toprol Xl Tab*) 25 mg PO DAILY [facility] Last Admin: 02/19/18 08:57 Dose: 25 mg Mycophenolate Sodium (Myfortic (Nf)) 720 mg PO BID [facility] Last Admin: 02/18/18 20:28 Dose: Not Given Omeprazole (Prilosec Cap*) 20 mg PO DAILY@0730 [facility] Last Admin: 02/19/18 08:54 Dose: 20 mg Oxycodone HCl (Roxycodone Tab*) 10 mg PO Q4H PRN PRN Reason: PAIN Sevelamer Carbonate (Renvela Tab*) 2,400 mg PO AC [facility] Last Admin: 02/19/18 08:59 Dose: 2,400 mg Vital Signs - 8 hr 02/19/18 02/19/18 02/19/18 03:05 04:15 06:07 Temperature 100.2 F Pulse Rate 97 Respiratory 18 16 16 Rate Blood Pressure 124/71 (mmHg) O2 Sat by Pulse 92 Oximetry 02/19/18 02/19/18 07:29 08:55 Temperature 100.9 F Pulse Rate 99 Respiratory 18 19 Rate Blood Pressure 130/66 (mmHg) O2 Sat by Pulse 95 Oximetry Oxygen Devices in Use Now: Nasal Cannula Appearance: 33 yo M in nAD, aAOx3, poor historian Eyes: No Scleral Icterus, PERRLA Ears/Nose/Mouth/Throat: NL Teeth, Lips, Gums, Mucous Membranes Moist Neck: NL Appearance and Movements; NL JVP, Trachea Midline Respiratory: Symmetrical Chest Expansion and Respiratory Effort, - - crackles at RLL Cardiovascular: NL Sounds; No Murmurs; No JVD, RRR Abdominal: NL Sounds; No Tenderness; No Distention, No Hepatosplenomegaly, - - PD cath in place Extremities: No Clubbing, Cyanosis, - - Left arm fistula with positive thrill Skin: No Nodules or Sclerosis Neurological: Alert and Oriented x 3, - - very deconditioned. Requires 2 person assist to sit up, no focal deficit Result Diagrams: 02/18/18 05:20 02/18/18 17:53 Microbiology and Other Data: Microbiology 02/18/18 03:49 Urine Culture - Final Urine No Growth (<1,000 CFU/mL) 02/17/18 15:15 Nasal Screen MRSA (PCR) - Final Nasal Mrsa Not Detected Assess/Plan/Problems-Billing Assessment: 33 yo M with h/o SLE, lupus nephritis and pericarditis, renal cell ca s/p nephrectomy, aortic valve surgery at [facility] this summer presents after overdosing on Tramadol, subsequent seizure, intubation on 02/17/18, extubation 02/18/18 - Patient Problems (1) Seizure Comment: Appreciate neurology's consult. Initial seizure likely precipitated by tramadol overdose Trazodone held. will restart Zoloft. MRI, EEG planned on 02/20/18 Family concerned about pt 's mentation still abnormal with lethargy and problems answering to questions. suspect this is related to encephalopathy secondary to overdose and intubation(ICU stay) and recent seizure, but asked Dr. Zaragoza to eval. Pt's sister Mandy would like pt transferred to [facility] if pt requires monitoring that cannot be provided at [facility]. (2) ESRD (end stage renal disease) on dialysis Comment: -Continue PD (3) HTN (hypertension) Comment: -BP is under good control. Continue lopressor (4) SLE (systemic lupus erythematosus) Comment: -Continue plaquenil, cellcept (5) Third degree AV block Comment: transient in 2017, resolved (6) Hypoglycemia Comment: cont fingerstick Q4H (7) DVT prophylaxis Comment: HSQ Status and Disposition: inpatient
[2018-02-19] MEDS: MYCOPHENOLATE 360 MG PO SCH ×2 (10:38→20:28)
[2018-02-19] MEDS: Sertraline* 50 MG TAB PO SCH (12:51)
--- NOTE | 2018-02-19 14:21 | CONS ---
NEUROLOGY FOLLOWUP NOTE: DATE OF FOLLOWUP: 02/19/18 HOSPITALIST: Dr. Maguire. LOCATION: He is an inpatient in room 407. CHIEF COMPLAINT: Encephalopathy, seizure. INTERVAL HISTORY: Since yesterday, Jose Enrique remains quite confused. He is having a lot of twitchy movements. He is accompanied by his 2 friends as well as one of his sisters. She reports that for at least a week if not for several months he has had twitchy movements. She was concerned he might have had a seizure about a week ago as he found himself on the floor twitching, but he was aware what was happening. They also report that he has been getting an intravenous or perhaps intramuscular immunotherapy for his lupus, perhaps organized at a dental patient coordinator in [place] or [facility]. They do not know the name of it. Jose Enrique currently is somewhat confused, but when he does answer questions denies headaches. He continues to have pain in his hands and feet, but does not volunteer it, but does agree to it when specifically asked. MEDICATIONS: Reviewed and he is currently on: 1. Mycophenolate sodium 720 mg p.o. b.i.d. 2. Metoprolol 25 mg p.o. daily. 3. Prilosec 20 mg p.o. daily. 4. Oxycodone 10 mg p.o. q.4 hours as needed for pain. 5. Sertraline 75 mg p.o. daily. 6. Renvela 2400 mg p.o. daily. 7. He is also on gabapentin 600 mg p.o. t.i.d., increased yesterday. 8. Subcutaneous heparin 5000 units q.8 hours. 9. Plaquenil 200 mg p.o. b.i.d. 10. Calcitriol 1 mcg p.o. daily. PHYSICAL EXAM: He is lethargic, but arouses to answer questions. He falls asleep when not stimulated. He had a temperature of 100.9 earlier today, more recently it was 98.2. Blood pressure is running about 130 systolic over 60 to 70 diastolic, heart rate is in the 90s and regular. Respiratory rate 18, oxygen saturation is 99%. Neurological Exam: He is lethargic, but opens his eyes. He visually tracks appropriately when awake. Pupils react equally from 3 down to 2 mm. I could not get a descent look at his fundus because of a blepharospastic response. He has a brisk nasal tickle response bilaterally. There are symmetrical facial movements. There is asterixis in the outstretched hands and myoclonus in the trunk and head otherwise. He has antigravity strength of all limbs. DIAGNOSTIC STUDIES/LAB DATA: Notable for a glucose of 97 at 8:40 this morning. Electrolytes and CBC are pending completion of peritoneal dialysis, which he is currently undertaking. Urine culture from 02/18/18 is no growth. I reviewed his EEG from 02/17/18. It reveals diffuse slowing, but no epileptiform discharges. He was still intubated at that time. Ancillary history from his sister is that he took 12 tramadol before he presented to the emergency room. He has never had epilepsy before. He has overdosed on other pain medications before and previously his access to pain medicines was restricted to his caregivers. IMPRESSION AND PLAN: Impression is that of metabolic encephalopathy causing asterixis and myoclonus. I do not think he is actively seizing, but I will go ahead and ask our psychiatric technician assistant to come in and do a routine EEG on him. Looking up gabapentin in patients on dialysis, it is supposed to be dosed twice a day or once a day. Given his lethargy, I will cut it back to 600 mg once a day for now. His sister will try to get information about what type of parenteral therapy for his lupus he has been receiving. He has an MRI pending for tomorrow , which I think is appropriate to wait for. If his EEG shows active epileptiform discharges, then I will start him on a parenteral anticonvulsant, probably Keppra. He has a low-grade fever and if that spikes, he will need further investigation for infection including possibility of lumbar puncture. I will continue to follow him along with you. [id number]/[facility] #: [id number] DARRELL
[2018-02-19] MEDS: Heparin VIAL(*) 5000 UNITS/ML VIAL (FIVE THOUSAND) SUBCUT SCH ×2 (15:03→20:32)
--- NOTE | 2018-02-19 15:30 | PN ---
Progress Note - Progress Note Date of Service: 02/19/18 Note: Consult requested by Dr. Maguire (Re: S/o OD on tramadol). Attempted to visit Mr. Puri, being visited by multiple relatives. Nursing indicates the although he is able to communicate, he is still drowsy. Will defer consult to tomorrow.
[2018-02-19] MEDS ORDERED: D5NS 0.9% 1000 ML BAG* 1,000 ML IV SCH (18:00)
[2018-02-20] MEDS: oxyCODONE TAB* 5 MG TAB PO PRN
[2018-02-20] MEDS: Heparin VIAL(*) 5000 UNITS/ML VIAL (FIVE THOUSAND) SUBCUT SCH ×3 (05:31→22:05)
[2018-02-20 05:56] LABS: Hematocrit 27 % (42-52); Mean Corpuscular HGB Conc 33 g/dl (31-36); Mean Corpuscular Hemoglobin 32 pg (27-31); Mean Corpuscular Volume 97 fL (80-94); Platelet Count 97 10^3/ul (150-450); Red Blood Count 2.77 10^6/ul (4.00-5.40); Red Cell Distribution Width 17 % (10.5-15); White Blood Count 14.2 10^3/ul (3.5-10.8)
[2018-02-20 06:22] LABS: ABS Basophils 0.1 10^3/ul (0-0.2); ABS Eosinophils 0 10^3/ul (0-0.6); ABS Lymphocytes 1.5 10^3/ul (1.0-4.8); ABS Neutrophils 10.6 10^3/ul (1.5-7.7); ABS Nucleated RBC 0 10^3/ul; Eosinophil % 0 % (0-6); Lymphocyte % 10.8 % (25-47); Nucleated Red Blood Cells % 0.1
[2018-02-20 06:23] LABS: EGFR Non-African American 4.2 (>60)
--- NOTE | 2018-02-20 07:04 | TRS ---
CC: Dr. Zaragoza; Dr. Valentine * TRANSFER SUMMARY: DATE OF ADMISSION: 02/17/18 DATE OF ANTICIPATED TRANSFER TO A TERTIARY CARE FACILITY: At this point, details of the facility are unknown and the patient is planned to be transferred either on 02/19/18 in the evening or 02/20/18. PRIMARY CARE DOCTOR: Dr. Mirza Valentine. ANALYSIS OR RESEARCH SAFETY INSPECTOR: A physician from rheumatology group in [place], but name unknown at this point. REASON FOR TRANSFER: Hemodialysis and further evaluation at a tertiary care center by Rheumatology. SECONDARY DIAGNOSES: 1. History of systemic lupus erythematosus with lupus nephritis, with subsequent development of end-stage renal disease. The patient is currently on peritoneal dialysis. 2. History of lupus pericarditis. 3. 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 4. Hypertension. 5. History of left upper extremity dialysis fistula placement. 6. Splenectomy. 7. History of inguinal hernia repair. 8. History of left nephrectomy secondary to renal cell carcinoma. MEDICATIONS: Current medications include: 1. Calcitriol 1 mcg daily. 2. Folic acid 5 mg daily. 3. Gabapentin 600 mg daily. 4. Heparin subcutaneously 5000 units every 8 hours for DVT prophylaxis. 5. Plaquenil 200 mg b.i.d. 6. Metoprolol succinate 25 mg daily. 7. CellCept 720 mg b.i.d. 8. Omeprazole 20 mg daily. 9. Oxycodone on a p.r.n. basis, 10 mg every 4 hours p.r.n. 10. Zoloft 75 mg daily. 11. Renvela 2400 mg p.o. 3 times a day with each meal. The patient's home medications include: 1. CellCept 720 mg b.i.d. 2. Butrans patch 7.5 mcg transdermally weekly. 3. Tylenol extra strength 2000 mg q.a.m. 4. Calcitriol 1 mcg daily. 5. Ritalin 10 mg daily p.r.n. 6. Plaquenil 200 mg b.i.d. 7. Gabapentin 300 mg 3 times a day. 8. Folic acid 5 mg daily. 9. Zyrtec 5 mg daily. 10. Metoprolol succinate 25 mg daily. 11. Zofran on a p.r.n. basis. 12. Omeprazole 20 mg daily. 13. Trazodone 50 mg at bedtime p.r.n. 14. Ultram 50 mg every 4 hours p.r.n. 15. Renvela 2400 mg p.o. with each meal. 16. Zoloft 75 mg daily. HOSPITALIZATION COURSE: Jose Enrique Puri is a 33-year-old male with history of lupus nephritis and subsequent development of end-stage renal disease, on peritoneal dialysis, who called 911 on 02/17/18 after he took 8 of 50-mg tablets of tramadol. He stated that his pain was uncontrollable and he could not sleep and he just wanted for his pain to go away and to sleep. He denied suicidal ideation at that point. He was admitted to our facility, had started seizing and required intubation for airway protection. He was intubated from 02/17/18 and extubated on 02/18/18. Post extubation, his EEG showed no epileptiform abnormalities. Our Neurology, Dr. Zaragoza, followed the patient with evaluation and noted that the patient's seizures were likely related to tramadol overdose. On 02/19/18, the patient continues to have intermittent twitching, still very lethargic with episodes of hypoglycemia. It appeared that the patient had not been eating due to the marked lethargy. After discussion with the patient's concerned family and Dr. Zaragoza, it was decided that due to the patient's tramadol being 30% renally excreted, he may need hemodialysis, that is not available at our facility. 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 Unfortunately, the patient is, at this point, too encephalopathic to remember the name of his bean weigher specialist. It would be also beneficial for the patient to see rheumatology netsuite consultant at the tertiary care center. The family also feels that the patient should be taken care of at [facility] in [place] since he had been a patient there. The patient's sister also mentions that more than past 3 months, the patient had an open heart surgery at [facility] for aortic valve abnormality. At this point, we are trying to get medical records from the facility and details of what exactly occurred. At this point, we are in the process of communicating with [facility] and [facility] and the patient is in a waiting list. Currently, the patient is hemodynamically stable, not on gambling monitor floor. He is lethargic, but arousable and he answers to simple questions, but sometimes his answer is not correct as per the patient's multiple family members who are visiting him during the day. For further details of the patient 's current physical status, please see the ED progress notes. Hopefully, I will be able to determine which facility he needs to be transferred to. [id number]/[facility] #: [id number] DARRELL
[2018-02-20] MEDS: Sevelamer TAB* 800 MG PO SCH ×3 (08:15→17:30)
[2018-02-20] MEDS: Folic Acid TAB* 1 MG PO SCH (08:16)
[2018-02-20] MEDS: MYCOPHENOLATE 360 MG PO SCH ×2 (08:16→22:05)
[2018-02-20] MEDS: Metoprolol Succinate XL TAB* 25 MG PO SCH (08:17)
[2018-02-20] MEDS: Hydroxychloroquine TAB* 200 MG PO SCH ×2 (08:17→22:04)
[2018-02-20] MEDS: Sertraline* 50 MG TAB PO SCH (08:17)
[2018-02-20] MEDS: Calcitriol CAP* 0.25 MCG PO SCH (08:17)
[2018-02-20] MEDS: Gabapentin CAP(*) 300 MG PO SCH (08:19)
[2018-02-20] MEDS: Omeprazole CAP* 20 MG PO SCH (08:19)
[2018-02-20] MEDS ORDERED: Heparin DIALYSIS ONLY(*) 1,000 UNITS/ML VIAL DIALYSIS ONE (14:00)
[2018-02-20] MEDS ORDERED: Piperacillin/Tazobac ADVAN(*) 3.375 GM in NS 0.9% 100 ML* 100 ML IVPB ONE (18:56)
[2018-02-20] MEDS ORDERED: Zosyn per Pharmacy* NOTE FOLLOW UP SCH (19:00)
--- NOTE | 2018-02-20 19:07 | PN ---
Subjective Date of Service: 02/20/18 Interval History: More lethargic today.Unable to answer questions appropriately this am.Reassessed this pm during HD and appears more alert and conversational.Wants to continue PD with tweak if possible in the longer term.Temp of 101 overnight and leukocytosis Objective Active Medications: Calcitriol (Rocaltrol Cap*) 1 mcg PO DAILY [facility] Last Admin: 02/20/18 08:17 Dose: 1 mcg Dextrose (D50w Syringe 50 Ml*) 25 gm IV PUSH ONCE PRN PRN Reason: FS < 60 Last Admin: 02/19/18 08:42 Dose: 25 gm Folic Acid (Folvite Tab*) 5 mg PO DAILY [facility] Last Admin: 02/20/18 08:16 Dose: 5 mg Gabapentin (Neurontin Cap(*)) 600 mg PO DAILY [facility] Last Admin: 02/20/18 08:19 Dose: 600 mg Heparin Sodium (Porcine) (Heparin Vial(*)) 5,000 units SUBCUT Q8HR [facility] Last Admin: 02/20/18 17:01 Dose: Not Given Hydroxychloroquine Sulfate (Plaquenil Tab*) 200 mg PO BID [facility] Last Admin: 02/20/18 08:17 Dose: 200 mg Piperacillin Sod/Tazobactam (Sod 3.375 gm/ Sodium Chloride) 100 mls @ 200 mls/ hr IVPB ONCE ONE Stop: 02/20/18 19:25 Metoprolol Succinate (Toprol Xl Tab*) 25 mg PO DAILY [facility] Last Admin: 02/20/18 08:17 Dose: 25 mg Mycophenolate Sodium (Myfortic (Nf)) 720 mg PO BID [facility] Last Admin: 02/20/18 08:16 Dose: 720 mg Omeprazole (Prilosec Cap*) 20 mg PO DAILY@0730 [facility] Last Admin: 02/20/18 08:19 Dose: 20 mg Oxycodone HCl (Roxycodone Tab*) 5 mg PO Q4H PRN PRN Reason: PAIN Last Admin: 02/20/18 00:00 Dose: 5 mg Pharmacy Consult (Zosyn Per Pharmacy*) 1 note FOLLOW UP .ZOSYN PER PHARMACY [facility] Sertraline HCl (Zoloft*) 75 mg PO DAILY [facility] Last Admin: 02/20/18 08:17 Dose: 75 mg Sevelamer Carbonate (Renvela Tab*) 2,400 mg PO AC [facility] Last Admin: 02/20/18 17:30 Dose: 2,400 mg Vital Signs - 8 hr 02/20/18 15:54 Respiratory 18 Rate Oxygen Devices in Use Now: None Eyes: No Scleral Icterus Ears/Nose/Mouth/Throat: NL Teeth, Lips, Gums Neck: NL Appearance and Movements; NL JVP Respiratory: Symmetrical Chest Expansion and Respiratory Effort, - - Basal crackles earlier this am Cardiovascular: NL Sounds; No Murmurs; No JVD Abdominal: NL Sounds; No Tenderness; No Distention Extremities: No Edema Skin: No Rash or Ulcers Neurological: - - more alert this pm compared to am Result Diagrams: 02/20/18 05:35 02/20/18 06:21 Microbiology and Other Data: Microbiology 02/18/18 03:49 Urine Culture - Final Urine No Growth (<1,000 CFU/mL) 02/17/18 15:15 Nasal Screen MRSA (PCR) - Final Nasal Mrsa Not Detected Assess/Plan/Problems-Billing Assessment: 33 yo M with h/o SLE, lupus nephritis and pericarditis, renal cell ca s/p nephrectomy, aortic valve surgery at [facility] this summer presents after overdosing on Tramadol, subsequent seizure, intubation on 02/17/18, extubation 02/18/18 - Patient Problems (1) Seizure Current Visit: Yes Status: Acute Code(s): R56.9 - UNSPECIFIED CONVULSIONS SNOMED Code(s): 68180935 Comment: Appreciate neurology's consult. Initial seizure possibly from tramadol overdose but multifactorial. Trazodone held. On Zoloft. MRI, EEG planned on 02/20/18 ( pending) Long discussion with family.Also discussed with neurology Hemodialysis today for benefit for doubt as PD clearance of Tramadol not fully clear.HD not clear as well.But will attempt as clearance has been poor with PD as an outpatient as well.?Non compliance Will await non contrast MRI to eval for any other possibility including encephalomalacia and lupus cerebritis Neurology following Pt reports that he was given a new prescription for Tramadol last week (2) Hypoglycemia Current Visit: Yes Status: Acute Code(s): E16.2 - HYPOGLYCEMIA, UNSPECIFIED SNOMED Code(s): 043498047 Comment: cont fingerstick Q4H (3) ESRD (end-stage renal disease) due to SLE Current Visit: No Status: Acute Code(s): M32.14 - GLOMERULAR DISEASE IN SYSTEMIC LUPUS ERYTHEMATOSUS; N18.6 - END STAGE RENAL DISEASE SNOMED Code(s): 99911881 Comment: Pl see above Kt/V 1.6 with OP PD.Was on 4 PD exchages with cycler at night 1,5%.At home on Icodextran and has been dry here.Crackles this am and ongoing confusion.Discussed with Dr Flores and attempting HD today.Next HD tentatively on Tue and will need to evaluate and continue discussion with pt on PD versus HD.Mental status also needs to improve for PD at home AVF accessed for HD (4) Fever Current Visit: No Status: Acute Code(s): R50.9 - FEVER, UNSPECIFIED SNOMED Code(s): 320032582 Comment: -CXR, blood culture, urine Fever of 101 overnight On immunosuppressives Will culture Peritoneal fluid.CXR pending. -Will place on Vanco Zosyn empirically till cultures return (5) Altered mental status Current Visit: Yes Status: Acute Code(s): R41.82 - ALTERED MENTAL STATUS, UNSPECIFIED SNOMED Code(s): 158083528 Comment: See above (6) HTN (hypertension) Current Visit: No Status: Acute Code(s): I10 - ESSENTIAL (PRIMARY) HYPERTENSION SNOMED Code(s): 83950388 Comment: -Continue current management (7) Lupus (systemic lupus erythematosus) Current Visit: Yes Status: Acute Code(s): M32.9 - SYSTEMIC LUPUS ERYTHEMATOSUS, UNSPECIFIED SNOMED Code(s): 29936556 Comment: Continue Plaquenel and Cell cept for now Will get complement levels to evaluate for active lupus? If fever persists, will consider tapering IS if appropriate (8) Physical deconditioning Current Visit: Yes Status: Acute Code(s): R53.81 - OTHER MALAISE SNOMED Code(s): 10061453184098 Comment: PT/OT Discussed with family No current beds at [facility].Will wait for bed and follow progress.If improved pt now just wants to go home and f/u as OP Will decide based on progress and family aggreable Status and Disposition: inpatient
[2018-02-20] MEDS ORDERED: LORazepam INJ* 2 MG/ML 1 ML VIAL IV PUSH ONE (19:41)
--- NOTE | 2018-02-20 21:42 | CONS ---
CC: Dr. Paige Bravo * CONSULTATION REPORT: DATE OF CONSULT: 02/20/18 PROVIDER: Amira Easton NP SUPERVISING PHYSICIAN: Wallace Valencia MD ORDERING PHYSICIAN: Kizzy Maguire MD REASON FOR CONSULT: Jose Enrique overdosed on 6 tramadol secondary to chronic pain and was found unresponsive and was intubated and had seizures in the emergency department. CHIEF COMPLAINT: "I'm groggy and confused, I feel as if I've snorted drugs." HISTORY OF PRESENT ILLNESS: The patient is a 33-year-old single white male with a history of what is likely depression or anxiety given his medication, although he cannot report what it is, who arrives following admission to the ED following an overdose on 6 tramadol secondary to chronic pain due to lupus. Jose Enrique was found unresponsive. He had seizures in the emergency department. He has renal failure. He is on peritoneal dialysis. Most of his care takes place at [facility] and it appears that he took 6 tramadol. Data from reports indicates that the seizure was likely caused by the excessive use of tramadol. At this point, he denies suicidal ideation and appears confused as to why I would even ask that question. He does not remember anything about his taking 6 tramadol. He does not appear worried. He is lethargic, but he is pleasant and is able to report on his current situation, although not as well on his past. PAST PSYCHIATRIC HISTORY: He reports no previous psychiatric admissions. He says that he does have a psychiatrist in the past. He is taking 75 mg of sertraline. He says he is seeing a counselor now, doctor someone, he cannot name and it was discussed that perhaps he should move his care to [place]. This is according to Marybeth, but they never made a decision about that. SUBSTANCE ABUSE HISTORY: He used to use alcohol excessively. He states he has been "dry for a long time." He believes it is 3 years. They have talked about sending him to NA or AA, but they have determined that that is not the right time for that. PAST MEDICAL HISTORY: Well documented elsewhere. FAMILY HISTORY: He states his sister, Dorothy, who is #10 in line of 20 total children in the family, has schizophrenia. SOCIAL HISTORY: History is difficult to elicit as he has little memory of what is going on and states only "I want to feel better, I hope I don't feel like this forever." He is single and his sister, Marybeth, does a lot of taking care of him. REVIEW OF SYSTEMS: Deferred to his medical providers. PHYSICAL EXAM: Deferred to his medical providers. LABORATORY DATA: Deferred to his medical providers. MENTAL STATUS EXAMINATION: This is a slim man with blondish hair. He is clean and he is in a Maia type chair getting hemodialysis. He is absentmindedly scratching his chin with the arm getting hemodialysis and needs to be reminded frequently that he needs to not do that. He is calm. He is as cooperative as can be, but he is vague and "foggy." His speech is of a normal volume. It is slow. He has many latencies. He appears to be euthymic. His affect is constricted. His thought processes are impoverished. His thought content appears to be free from delusions. He denies homicidality. He denies suicidality. He denies auditory and visual hallucinations. His insight is limited by his current mental cognitive state. His judgment is likely poor at this moment. He is alert and oriented x3. DIAGNOSES: [place] I: Anxiety disorder and depressive disorder. IMPRESSION: This is a 33-year-old white male, who arrives to the hospital following an overdose of 6 tramadol that may have precipitated a generalized seizure in the emergency department. At this point, he does not recall being suicidal. He does not recall taking an overdose. He does not recall overusing tramadol. RECOMMENDATIONS: Continue psychiatric that he has been prescribed. He does not require additional monitoring as he is not suicidal. This is a man who has significant physical problems that must be tended to first. AMIRA EASTON, IRISH [id number]/[facility] #: [id number] DARRELL
--- NOTE | 2018-02-20 22:00 | RAD ---
EXAM: MRI Head Without Intravenous Contrast EXAM DATE/TIME: 02/20/2018 8:53 PM CLINICAL HISTORY: 33 years old, male; Condition or disease; Convulsions or seizures; Unspecified; Patient HX: PT has some confusion and has had an increase twitchy movement recently. Was found twitching on the floor by sister about 1 week ago; Additional info: Seizure. PT slightly confused and moving during the exam, talked with the patient and strapped his legs down, he was also medicated; Best images possible TECHNIQUE: Magnetic resonance images of the head/brain without intravenous contrast in multiple planes. COMPARISON: BRAIN WO CT BRAIN WO 02/17/2018 12:55 PM FINDINGS: Limitations: Motion artifact limits this study. Brain: Foci of restricted diffusion are identified within the left cerebellar lobe and left thalamus, consistent with acute lacunar infarcts. There is increased FLAIR signal intensity associated with the areas of restricted diffusion. The hippocampi are normal in signal intensity and size, without mesial temporal sclerosis. There are bands of magnetic susceptibility within the bilateral cerebral hemispheres and aleksander. This is contributed at least in part by artifact. Hemosiderin cannot be excluded. No midline shift. Midline shift: There is no midline shift. Ventricles: No ventriculomegaly. There is subtle ependymal/subependymal irregularity. Bones/joints: Unremarkable. Soft tissues: Normal. Sinuses: A small mucus retention cyst or polyp is visualized within the left maxillary sinus. There is mild mucosal thickening of the right sphenoid sinus, with effusion within the left sphenoid sinus. Mastoid air cells: No mastoid effusion. Orbits: Artifact limits evaluation of the bilateral orbits. IMPRESSION: 1. Foci of restricted diffusion are identified within the left cerebellar lobe and left thalamus, consistent with acute lacunar infarcts. 2. There are bands of magnetic susceptibility within the bilateral cerebral hemispheres and aleksander. This is contributed, at least in part, by artifact. Hemosiderin cannot be excluded. Correlation with head CT is recommended. 3. There is subtle ependymal/subependymal irregularity. Nonemergent postcontrast sequences are recommended to exclude subependymal nodules. 4. Paranasal sinus disease is noted above. To contact [facility] with a general question: [facility] - [phone] For direct physician to physician contact: Physician Hotline - [phone] [facility] ([facility] Facility ID #[id number])
--- NOTE | 2018-02-20 22:07 | CONS ---
NEUROLOGY FOLLOWUP NOTE: DATE OF FOLLOWUP: 02/20/18 LOCATION: He is in room 407. HOSPITALIST: Dr. Guzman. CHIEF COMPLAINT: Confusion, asterixis. INTERVAL HISTORY: Since yesterday, Jose Enrique is now getting hemodialyzed. There were no beds available at [facility] or [facility] and he is on a waiting list. Currently, he is still somewhat lethargic and confused, but he seems more aware of what is going on around him. He is still having some twitching described in the physical exam below, but that seems a bit less too. He denies headache. MEDICATIONS: Reviewed and he is on: 1. Gabapentin 600 mg p.o. once per day. 2. Heparin subcutaneous 5000 units q.8 hours. 3. Plaquenil 200 mg p.o. b.i.d. 4. Metoprolol 25 mg p.o. daily. 5. Mycophenolate sodium 720 mg p.o. b.i.d. 6. Omeprazole 20 mg p.o. daily. 7. Oxycodone 5 mg p.o. every 4 hours as needed for pain. 8. Sertraline 75 mg p.o. daily. 9. Calcitriol 1 mcg p.o. daily. PHYSICAL EXAM: Most recent temperature is 98.7, but he had a T-max of 101 earlier this morning and it was 100.7 late last night. Blood pressure is running about 130/60, heart rate in the 90s and regular. Oxygen saturation is 99% on room air. Respiratory rate is 18. Heart is in a regular rate and rhythm with a grade 2-3/6 holosystolic murmur left lower sternal border. Neck is supple and nontender. Lungs are clear anterolaterally. Neurologically, he is still pretty lethargic, but he can maintain his alertness longer periods of time than yesterday. Speech is mildly dysarthric. Eye movements are full without nystagmus. He still has some asterixis in the extended hand on the right, I did not check his left as he has got the hemodialysis catheter in it. He is a little more alert than yesterday, but still sleepy. LABORATORY DATA: Notable for an elevated white blood cell count today at 14, 200. He has 10.6 absolute neutrophils, which is an elevation. Hemoglobin is stable at 9, platelet count is a little bit lower today at 97,000. Chemistries notable for a sodium of 128 this morning, BUN 78, and creatinine 13.4. Glucose 108 this morning. IMPRESSION AND PLAN: Impression is that of toxic metabolic encephalopathy, slightly improved clinically. Hopefully, the hemodialysis will result in a significant improvement. He is scheduled to get an MRI of the brain without contrast after he is done with hemodialysis. I spoke with his sister, Mandy, who is present and apparently knows his medical history the best. She said they spend most every day with him since he had his heart procedure. She indicates the twitching that he has been having has been going on for at least a week or more. She says that her nephew has myoclonic epilepsy and we discussed the difference between epileptic and nonepileptic myoclonus. I explained his last EEG yesterday revealed diffuse slowing as did the one prior to that, but no epileptiform discharges. He has a fever, a cough, and an elevated white blood cell count. I have spoken with Dr. Guzman and she is going to get a chest x-ray and also culture his peritoneal fluid. He will be transferred when a bed is available hopefully at [facility] where his oceanic sciences professor is. I will continue to follow him while he is here. [id number]/[facility] #: [id number] DARRELL
[2018-02-20] MEDS ORDERED: Aspirin TAB* 325 MG ONE (23:38)
[2018-02-21] MEDS: ZOSYN 3.375 GM Q12H per EXTENDED INFUSION IVPB SCH ×4 (01:59→14:19)
--- NOTE | 2018-02-21 02:17 | RAD ---
EXAM: CT Head Without Intravenous Contrast EXAM DATE/TIME: 02/21/2018 1:43 AM CLINICAL HISTORY: 33 years old, male; Screening exam; Additional info: CVA left thalamus and left cerebellum TECHNIQUE: Axial computed tomography images of the head/brain without intravenous contrast. All CT scans at this facility use at least one of these dose optimization techniques: automated exposure control; mA and/or kV adjustment per patient size (includes targeted exams where dose is matched to clinical indication); or iterative reconstruction. COMPARISON: BRAIN WO MRI BRAIN W/O 02/20/2018 8:27:01 PM FINDINGS: Brain: Small hypodense lacunar infarcts are visualized within the left cerebellar lobe and left thalamus, which are acute on the recent MRI brain. The white-darnell differentiation is otherwise preserved. No acute intracranial hemorrhage is seen. No significant white matter disease is visualized. Midline shift: There is no midline shift. Ventricles: No ventriculomegaly. Bones/joints: The calvarium demonstrates no evidence for a depressed fracture. Sinuses: Effusion is visualized within the left sphenoid sinus. There is mucosal thickening of the right sphenoid sinus and the visualized portion of the right maxillary sinus. Mastoid air cells: Minimal effusions are seen within the left mastoid air cells. Soft tissues: Normal. Vasculature: Atherosclerotic changes are identified of the intracranial carotid arteries and distal left vertebral artery. IMPRESSION: 1. Small lacunar infarcts are visualized within the left cerebellar lobe and left thalamus, which are acute on the recent MRI brain. 2. No acute intracranial hemorrhage. 3. Additional findings described above. To contact [facility] with a general question: [facility] - [phone] For direct physician to physician contact: Physician Hotline - [phone] [facility] ([facility] Facility ID #[id number])
--- NOTE | 2018-02-21 04:50 | EEG ---
ELECTROENCEPHALOGRAPHY: DATE OF STUDY: 02/19/18 LOCATION: He is an inpatient in room 407. CLINICAL PROBLEM: Encephalopathy, tramadol overdose, and seizure. CURRENT MEDICATIONS: Consist of: 1. Sertraline. 2. Gabapentin. 3. Metoprolol. 4. Plaquenil. REPORT: This 16-channel EEG is remarkable for background rhythms consisting of diffuse mixed slow activity and theta activity. There is some muscle artifact in bifrontal beta rhythms intermingled. The patient is described as intermittently looking about or about lethargic. There are multiple body jerks or leg jerks with movement artifact, but no epileptiform discharges. Activation procedures are not attempted. Sleep stages are not recognized. CLINICAL IMPRESSION: Abnormal EEG due to generalized disorganization and slowing of background rhythms consistent with diffuse cerebral dysfunction. There are no epileptiform features during this recording including during body and limb twitching. [id number]/[facility] #: [id number] DARRELL
[2018-02-21 05:34] LABS: Hematocrit 27 % (42-52); Hemoglobin 8.8 g/dl (14.0-18.0); Mean Corpuscular HGB Conc 33 g/dl (31-36); Mean Corpuscular Hemoglobin 32 pg (27-31); Mean Corpuscular Volume 95 fL (80-94); Mean Platelet Volume 10.7 um3 (7.4-10.4); Platelet Count 129 10^3/ul (150-450); Red Blood Count 2.77 10^6/ul (4.00-5.40); Red Cell Distribution Width 16 % (10.5-15); White Blood Count 15.3 10^3/ul (3.5-10.8)
[2018-02-21 05:35] LABS: ABS Basophils 0.1 10^3/ul (0-0.2); ABS Eosinophils 0 10^3/ul (0-0.6); ABS Lymphocytes 2.2 10^3/ul (1.0-4.8); ABS Neutrophils 11.1 10^3/ul (1.5-7.7); ABS Nucleated RBC 0 10^3/ul; Eosinophil % 0.1 % (0-6); Lymphocyte % 14.2 % (25-47); Nucleated Red Blood Cells % 0
[2018-02-21] MEDS: Heparin VIAL(*) 5000 UNITS/ML VIAL (FIVE THOUSAND) SUBCUT SCH ×3 (05:48→20:16)
[2018-02-21 05:56] LABS: EGFR Non-African American 7.7 (>60)
--- NOTE | 2018-02-21 07:22 | PN ---
Hospitalist Progress Note Date of Service: 02/20/18 called to bedside due to pt's mri is + two cva one is left thalamus 1.2 cm the other one is left cerebellar size 1.0 cm pt is arousable but very confused stable vital spoke with neuro ---> this is not hemorrhagic cva ---> on dvt heparin 5000 tid for now ---> add on asa 325 transfer to icu for close neuro check and monitering. repeat ct of head stat to confirm cva was done ( mri + motion defect ) which also confirmed of cva ---> spoke with [facility] transfer three times till 7 am. they requested mri to be sent ---> called mri to send this am again. [facility] says they have no icu bed but will ask neurocritical to eval the mri to transfer pending upon the icu bed capacity at 715 am vital 135/88 hr 87 rr 17-20 sat 94 percent afebrile general not in acute distress heart s1 s2 rrr lung cta abd soft nt ext no pedal edema able to move all four exts on his own neuro confused but arousable ---> later mental status improves to alert awake knows he is in the hosp but wrong reg yr/month, no focal neuro deficits upon exam a/p 1 acute cva size 1.2/1.0 cm with hx of sle but cva site are on the left ---> ? shadows of clots vs occlussion of vessel vs vasculitis with sle hx - tele with wagner - transfer to icu for close monitering - asa 325 mg added - neuro f/u -echo with bubble study to r/o pda - carotid sono in am 2 confusion which has been improving as the night goes, this could be due to the acute cva but neuro was wondering that could be hepatic encephalopathy vs toxic metabolic encephalopathy - ammonia ordered for am 3 esrd - hd support - moniter his lytes total critical care time one hour eval pt called specialty and transfer center
[2018-02-21] MEDS: Gabapentin CAP(*) 300 MG PO SCH (07:34)
[2018-02-21] MEDS: Omeprazole CAP* 20 MG PO SCH (07:34)
[2018-02-21] MEDS: Metoprolol Succinate XL TAB* 25 MG PO SCH (07:34)
[2018-02-21] MEDS: Folic Acid TAB* 1 MG PO SCH (07:34)
[2018-02-21] MEDS: Sertraline* 50 MG TAB PO SCH (07:35)
[2018-02-21] MEDS: Calcitriol CAP* 0.25 MCG PO SCH (07:36)
[2018-02-21] MEDS: Hydroxychloroquine TAB* 200 MG PO SCH ×2 (07:36→20:16)
[2018-02-21] MEDS: MYCOPHENOLATE 360 MG PO SCH ×2 (07:36→20:16)
--- NOTE | 2018-02-21 08:35 | RAD ---
INDICATION: Seizure COMPARISON: Most recent comparison chest x-rays dated February 17, 2018 TECHNIQUE: PA and lateral views of the chest were obtained. FINDINGS: Postsurgical changes include sternotomy wires. The gastric tube and left neck central line have been removed. The heart and mediastinum are normal in size and contour. There is density obscuring the left lung base and left hemidiaphragm. There is no evidence of large pleural effusion. Visualized bones are normal for the patient's age. There is no radiographic evidence of free air beneath the diaphragm IMPRESSION: DENSITY OBSCURING THE LEFT LOWER LOBE COULD BE PNEUMONIA OR ATELECTASIS DEPENDING ON THE PATIENT'S CLINICAL PRESENTATION. R1
[2018-02-21] MEDS: Aspirin EC TAB* 325 MG PO SCH (09:00)
[2018-02-21] MEDS: Sevelamer TAB* 800 MG PO SCH ×3 (09:00→17:46)
--- NOTE | 2018-02-21 11:44 | ECHO ---
Patient: ANGIE KAPOOR [facility] Rec#: [id number] : 1985 Date: 02/21/2018 Age: 33y Height: 172.7 cm / 68.0 in Weight: 68 kg / 149.9 lbs Sex: M BSA: 1.8 Room#: ICU 5 Admit Date#: 02/17/2018 Type: Inpatient Referring: Mariella Martell Reading: Tito Hill MD Unclaimed Property Manager: Adwoa Kahn RN RDCS CC: Mirza Valentine, DO Transthoracic Echocardiogram Indication: CVA BP: 135/88 HR: 83 Rhythm: NSR Findings History: HTN, SLE, lupus nephritis, ESRD, lupus pericarditis, renal cell carcinoma with left nephrectomy, recent bioprosthetic AVR for lupus-related vegetation per patient. Technical Comments: The study quality is good. Left Ventricle: The left ventricular chamber size is normal. Mild concentric left ventricular hypertrophy is observed. Mild global hypokinesis of the left ventricle is observed. There is mildly decreased left ventricular systolic function. The estimated ejection fraction is 45-50%. Ventricular septal wall motion has a post-operative appearance. Abnormal left ventricular diastolic filling is observed, consistent with impaired relaxation. Left Atrium: The left atrium is mildly dilated. Right Ventricle: The right ventricular cavity size is normal. The right ventricular global systolic function is low normal. Right Atrium: The right atrial cavity size is normal. The bubble study is negative. A patent foramen ovale is not demonstrated with color Doppler and agitated contrast. Aortic Valve: There is a trace of aortic regurgitation. A bovine bio-prosthetic aortic valve is present. The bio-prosthetic aortic valve appears to be functioning normally. Mitral Valve: The mitral valve leaflets are mildly thickened. There is mild mitral regurgitation. There is no evidence of mitral stenosis. Tricuspid Valve: The tricuspid valve leaflets are normal. There is trace to mild tricuspid regurgitation. Unable to estimate the right ventricular systolic pressure. There is no tricuspid stenosis. Pulmonic Valve: The pulmonic valve appears normal. There is trace to mild pulmonic regurgitation. There is no pulmonic stenosis. Pericardium: There is no significant pericardial effusion. Aorta: There is no dilatation of the ascending aorta. There is no dilatation of the aortic arch. There is no dilation of the aortic root. Pulmonary Artery: The main pulmonary artery appears normal. Venous: The inferior vena cava appears normal in size. There is a greater than 50% respiratory change in the inferior vena cava dimension. Contrast: Normal saline was used as contrast for the bubble study. Images 38 and 39. Conclusions Mild global hypokinesis of the left ventricle is observed. There is mildly decreased left ventricular systolic function. The estimated ejection fraction is 45-50%. A patent foramen ovale is not demonstrated with color Doppler and agitated contrast. The bubble study is negative. A bovine bio-prosthetic aortic valve is present. The bio-prosthetic aortic valve appears to be functioning normally. There is mild mitral regurgitation. There is trace to mild tricuspid regurgitation. Unable to estimate the right ventricular systolic pressure. There is no significant pericardial effusion. Compared to study of 11/01/17, the LV function is slightly lower. THe aortic valve has been replaced Measurements Name Value Normal Range RVIDd (AP) 2D 2.9 cm (0.9 - 2.6) RVDdMajor (2D) 3.6 cm (2.2 - 4.4) RAd ISD 4CH 4.9 cm (3.4 - 4.9) RA (A4C)W 4.3 cm (2.9 - 4.6) IVSd (2D) 1.2 cm (0.6 - 1) LVPWd (2D) 1.2 cm (0.6 - 1) LVIDd (2D) 5.3 cm (3.6 - 5.4) LVIDs (2D) 3.9 cm - LV FS (2D) 26 % (25 - 45) Aortic Annulus 2.1 cm (1.4 - 2.6) Ao root diameter (2D) 2.9 cm (2.1 - 3.5) Ascending Ao 3 cm (2.1 - 3.4) Aortic arch 2.6 cm (1.8 - 3.4) LA dimension (AP) 2D 3.6 cm (2.3 - 3.8) LAd ISD 4CH 4.6 cm (2.9 - 5.3) LA ISD 4CH W 4.3 cm (2.5 - 4.5) Name Value Normal Range LA ESV SP 4CH (A/L) 67 ml - LA ESV SP 2CH (A/L) 58 ml - LA ESV BP (A/L) 63 ml - LA ESV BP (A/L) index 35 ml/m2 - LA ESV SP 4CH (MOD) 65 ml - LA ESV SP 2CH (MOD) 58 ml - Name Value Normal Range MV E-wave Vmax 1.1 m/sec - MV deceleration time 192 msec - MV A-wave Vmax 0.96 m/sec - MV E:A ratio 1.2 ratio - LV septal e' Vmax 0.08 m/sec - LV lateral e' Vmax 0.07 m/sec - LV E:e' septal ratio 13.8 ratio - LV E:e' lateral ratio 15.7 ratio - Name Value Normal Range AV Vmax 2.5 m/sec - AV VTI 46.3 cm - AV peak gradient 24.7 mmHg - AV mean gradient 15.4 mmHg - LVOT diameter 2.1 cm - LVOT Vmax 1.3 m/sec - LVOT VTI 23.7 cm - LVOT peak gradient 6.9 mmHg - LVOT mean gradient 4.2 mmHg - DOI (VTI) 0.51 ratio - DOI (Vmax) 0.52 ratio - DANIEL (continuity Vmax) 1.8 cm2 - DANIEL (continuity VTI) 1.8 cm2 - MARLON Vmax 1.4 m/sec - Name Value Normal Range IVC diameter 1.3 cm - Name Value Normal Range PV Vmax 1 m/sec -
--- NOTE | 2018-02-21 12:05 | RAD ---
INDICATION: LEFT thalamus and cerebellum ischemic stroke. COMPARISON: No relevant prior exams available on the [facility] PACS for comparison. TECHNIQUE: Bilateral carotid duplex scan. Stenosis estimations reflect velocity criteria that have been correlated to angiographic stenosis calculations based on distal internal carotid diameter. REPORT: RIGHT ICA: 49 cm/s peak systolic 16 cm/s end diastolic CCA: 84 cm/s peak systolic ICA/CCA peak systolic ratio: 0.6 The right common carotid artery and internal carotid artery are without evidence for significant atherosclerotic disease. Normal spectral wave forms are present throughout. The distal RIGHT internal carotid artery is tortuous. Antegrade flow in the right vertebral artery. LEFT ICA: 65 cm/s peak systolic 23 cm/s end diastolic CCA: 96 cm/s peak systolic ICA/CCA peak systolic ratio: 0.7 The left common carotid artery and internal carotid artery are without evidence for significant atherosclerotic disease. The internal carotid artery is markedly tortuous. Normal spectral wave forms are present throughout. Antegrade flow in the left vertebral artery. The LEFT subclavian artery could not be evaluated due to obscured acoustic window. IMPRESSION: #. Negative for carotid stenosis. Consider potential cardiac embolic source given multiple vascular distribution ischemic foci. CPT II Codes: 3100F
[2018-02-21] MEDS ORDERED: Vancomycin - DIALYSIS DOSING* NOTE FOLLOW UP SCH (14:00)
[2018-02-21] MEDS ORDERED: Vancomycin(*) 1,250 MG IV x ONCE IVPB ONE ×2 (14:00)
--- NOTE | 2018-02-21 14:01 | PN ---
Date of Service: 02/21/18 Critical Care Services: Has done well today. Is alert and oriented. MRI shows small. lacunar infarcts on left in cerebellum and thalamus. DDx is lupus cerebritis vs emboli from endocarditis. Also recent fever and elevated white count - blood, peritoneal fluid, and sputum have been cultured (CXR shows possible infiltrate at left base ). Vital Signs: Temp Pulse Resp BP SpO2 FiO2 98.3 F 92 21 139/91 95 30 Physical Exam: Gen:Alert and oriented. Seems comfortable. HEENT: No facial asymmetry Lungs: Clear at left base COR: I/ early systolic murmur heard throughout precordium. Extremities: No cyanosis or edema Neuro: No myoclonic movements Fluid Balance (Past 24 Hours): 02/20/18 02/21/18 06:59 06:59 Intake Total 860 551 Output Total 0 Balance 860 551 Weight 150 lb 147 lb Intake: IVPB 91 ABX - PIPERACILLIN 91 Oral 860 460 Output: Urine 0 Other: Estimated Void Large # Bowel Movements 0 0 # Voids 0 Labs: 02/20/18 02/21/18 02/21/18 23:52 04:01 05:18 WBC 15.3 RBC 2.77 L Hgb 8.8 L Hct 27 L MCV 95 H MCH 32 H MCHC 33 RDW 16 H Plt Count 129 L POC Glucose (mg/dL) 127 H 110 H 02/21/18 02/21/18 02/21/18 05:18 05:18 11:30 Sodium 129 L Potassium 4.2 Chloride 90 L Carbon Dioxide 29 Anion Gap 10 BUN 40 H Creatinine 8.04 H Glucose 96 Calcium 9.3 Ammonia 25 Fluid Source Peritonial fluid Fluid Volume 4 Fluid Color Colorless Fluid Appearance Clear Fluid WBC 148 Fluid RBC 9 Fluid Tot Cell Count 100 Fluid Neutrophils 26 Fluid Lymphocytes 37 Fluid Monocytes 37 Studies: CXR: As described above. Nutrition: Oral diet Impression: 1. Recent lacunar infarcts - possibilities include lupus cerebritis or emboli from endocarditis. 2. New-onset leukocytosis - could be from lungs, aortic valve, or peritoneal fluid. Plan: 1. Broad-spectrum antibiotic coverage (Vancomycin and PIP/TAZO) has been started. 2. Cultures of blood, sputum, and peritoneal fluid 3. DANIEL (to r/o endocarditis of aortic valve). Patient will be transferred to [facility] (at request of the family) , where patient's roller mechanic is, and where cardiac surgery was performed. Impression and plan have been communicated to the family. Critical Care Time: 40 minutes
--- NOTE | 2018-02-21 18:40 | CONS ---
NEUROLOGY FOLLOWUP CONSULTATION: DATE OF FOLLOWUP: 02/21/18 LOCATION: He is in ICU bed 5. TRANSLATOR: Dr. Clements. CHIEF COMPLAINT: Confusion, pain. INTERVAL HISTORY: Since yesterday, Jose Enrique is clearly much more alert. He notes that he is unsteady on transferring from bed to chair. He feels generally weak. He has not noticed any change in vision. MEDICATIONS: Reviewed and he is on: 1. Aspirin 325 mg p.o. q. day. 2. Calcitriol 1 mcg p.o. q. day. 3. Folic acid 5 mg p.o. q. day. 4. Gabapentin 600 mg p.o. q. day. 5. Heparin 5000 units subcutaneous q.8 hours. 6. Plaquenil 200 mg p.o. b.i.d. 7. Metoprolol 25 mg p.o. q. day. 8. Mycophenolate sodium 720 mg p.o. b.i.d. 9. Prilosec 20 mg p.o. q. day. 10. Oxycodone 5 mg p.o. q.4 hours as needed for pain. 11. He is on Zosyn 3.375 g q.12 hours IV. 12. Sertraline 75 mg p.o. q. day. 13. Renvela 2400 mg p.o. q. day. PHYSICAL EXAM: Most recent temperature is 98.3, earlier this morning was 99.4, it was 100.5 at 4 in the morning. Blood pressure is running about 130 to 140 systolic over 90 diastolic, heart rate is in the 90s and regular. Respiratory rate is 20 and oxygen saturation is 95% on room air. Eye movements are full and there is no nystagmus. Facial musculature and facial sensation to light touch is symmetric. He has a very mild dysarthria. There is no asterixis or myoclonus today. There is no pronator drift. [id number] maneuver is normal bilaterally. Finger taps are normal in the hands. He is oriented and able to carry on a conversation. He is still a bit sleepy, however. DIAGNOSTIC STUDIES/LAB DATA: Includes an MRI of the brain, which I reviewed. There are acute infarctions in the left thalamus and in the left cerebellar hemisphere. They appear to be small vessel lesions. They are present on the CT scan of the same day, but they are dark on ADC mapping indicating that they are relatively acute, but probably at least a day or 2 old since they are visible on CAT scan. He had a transthoracic echocardiogram, which revealed a normal functioning prosthetic aortic valve. There was no vegetations seen. There was mild global hypokinesis of the left ventricle. There was no patent foramen ovale by Doppler study. Chest x-ray from yesterday interpreted as showing density in the left lower lobe , which could be pneumonia or atelectasis. BMP today notable for a sodium of 129, BUN down to 40, and creatinine down to 8.04. Glucose 96 this morning. CBC is notable for further elevation of his white blood cell count to 15.3, stable hemoglobin at 8.8, and platelet count up a little bit to 129,000. Peritoneal fluid from yesterday revealed clear and colorless fluid. Cultures and counts are pending. IMPRESSION AND PLAN: Impression is that of improved encephalopathy after hemodialysis. He has 2 small relatively acute infarctions in the thalamus and cerebellum. Differential diagnosis includes emboli from his heart valve, lupus vasculitis, less likely primary arteriosclerotic disease. Currently, plans are being made to arrange for transfer to either [facility] where his caustics loader is and where his heart valve surgery was done or [facility] depending upon bed availability at either institution. Currently, he is stable on aspirin and antibiotics and I do not think he needs to be on an anticonvulsive medication. I think his initial seizure was probably from the tramadol overdose, but the cause for his acute cerebrovascular lesions remains incompletely defined. I will continue to follow him as long as he is here in the hospital. [id number]/[facility] #: [id number] DARRELL
[2018-02-22] MEDS: oxyCODONE TAB* 5 MG TAB PO PRN ×3 (00:06→21:32)
[2018-02-22] MEDS: ZOSYN 3.375 GM Q12H per EXTENDED INFUSION IVPB SCH ×4 (02:02→15:05)
[2018-02-22] MEDS: Heparin VIAL(*) 5000 UNITS/ML VIAL (FIVE THOUSAND) SUBCUT SCH ×4 (07:10→21:31)
--- NOTE | 2018-02-22 07:28 | EEG ---
SKILLED NURSING VIDEO/EEG MONITORING - Monitoring Monitoring Start Date: 02/17/18 Introduction: INTRODUCTION: The EEG was monitored from 21 scalp electrodes. Nineteen electrodes consisted of the standard parasagittal, temporal and midline leads of the International 10 -20 system. In addition, special electrodes FT9 and FT10 were placed. EEG data were recorded on an ServiceRelated system with simultaneous MPEG-4 digital video recording of patient behavior. EEG recording was in a monopolar montage with all electrodes referenced to FCz. Significant behavioral events were signaled by an event button, or putative electrical seizure events were detected by a computer program. All EEG data were reviewed in their entirety on a monitor with reconstruction of montages and adjustments of sensitivity and filtering. Simultaneous patient behavior was viewed on an adjacent monitor and correlated with the EEG. - Medications Active Medications: Aspirin (Ecotrin Ec Tab*) 325 mg PO DAILY [facility] Last Admin: 02/21/18 09:00 Dose: 325 mg Calcitriol (Rocaltrol Cap*) 1 mcg PO DAILY [facility] Last Admin: 02/21/18 07:36 Dose: 1 mcg Dextrose (D50w Syringe 50 Ml*) 25 gm IV PUSH ONCE PRN PRN Reason: FS < 60 Last Admin: 02/19/18 08:42 Dose: 25 gm Folic Acid (Folvite Tab*) 5 mg PO DAILY [facility] Last Admin: 02/21/18 07:34 Dose: 5 mg Gabapentin (Neurontin Cap(*)) 600 mg PO DAILY [facility] Last Admin: 02/21/18 07:34 Dose: 600 mg Heparin Sodium (Porcine) (Heparin Vial(*)) 5,000 units SUBCUT Q8HR [facility] Last Admin: 02/22/18 07:10 Dose: Not Given Hydroxychloroquine Sulfate (Plaquenil Tab*) 200 mg PO BID [facility] Last Admin: 02/21/18 20:16 Dose: 200 mg Piperacillin Sod/Tazobactam (Sod 3.375 gm/ Sodium Chloride) 100 mls @ 25 mls/ hr IVPB Q12H [facility] Last Admin: 02/22/18 02:02 Dose: 25 mls/hr Metoprolol Succinate (Toprol Xl Tab*) 25 mg PO DAILY [facility] Last Admin: 02/21/18 07:34 Dose: 25 mg Mycophenolate Sodium (Myfortic (Nf)) 720 mg PO BID [facility] Last Admin: 02/21/18 20:16 Dose: 720 mg Omeprazole (Prilosec Cap*) 20 mg PO DAILY@0730 [facility] Last Admin: 02/21/18 07:34 Dose: 20 mg Oxycodone HCl (Roxycodone Tab*) 5 mg PO Q4H PRN PRN Reason: PAIN Last Admin: 02/22/18 00:06 Dose: 5 mg Pharmacy Consult (Zosyn Per Pharmacy*) 1 note FOLLOW UP .ZOSYN PER PHARMACY [facility] Pharmacy Consult (Vancomycin - Dialysis Dosing*) 1 note FOLLOW UP .PER PHRMACY [facility] Sertraline HCl (Zoloft*) 75 mg PO DAILY [facility] Last Admin: 02/21/18 07:35 Dose: 75 mg Sevelamer Carbonate (Renvela Tab*) 2,400 mg PO AC [facility] Last Admin: 02/21/18 17:46 Dose: 2,400 mg - Description Background: The waking background showed appropriate organization. There was no discernable posterior dominant rhythm.There was a continuous excess of irregular generalized delta and theta frequency activity in the wake state. Sleep Background: Stage II sleep transients were not observed. Background Slowing: Mild to moderate generalized background slowing is present. Focal Slowing: No focal slowing is present Other Paroxysmal Non-Epileptiform Findings: None. Spontaneous Activity: No epileptiform discharges are present Clinical Events: No clinical events or seizures have been recorded during this study. - Impression Impression: EEG Summary/Classification: This is an abnormal EEG due to the presence of 1. Mild to moderate generalized slowing EEG Impression/Clinical Correlate: Findings indicate etiologically non-specific mild to moderate diffuse cerebral dysfunction as can be seen in the setting of toxic, metabolic, inflammatory, infectious, vascular, degenerative, or multifocal structural abnormalities. Clinical and/or neuroradiologic correlation recommended.
[2018-02-22] MEDS: Omeprazole CAP* 20 MG PO SCH (09:23)
[2018-02-22] MEDS: Calcitriol CAP* 0.25 MCG PO SCH (09:23)
[2018-02-22] MEDS: Aspirin EC TAB* 325 MG PO SCH (09:23)
[2018-02-22] MEDS: Sevelamer TAB* 800 MG PO SCH ×3 (09:23→17:54)
[2018-02-22] MEDS: Folic Acid TAB* 1 MG PO SCH (09:24)
[2018-02-22] MEDS: Gabapentin CAP(*) 300 MG PO SCH (09:24)
[2018-02-22] MEDS: Hydroxychloroquine TAB* 200 MG PO SCH ×2 (09:24→21:29)
[2018-02-22] MEDS: MYCOPHENOLATE 360 MG PO SCH ×2 (09:24→21:29)
[2018-02-22] MEDS: Metoprolol Succinate XL TAB* 25 MG PO SCH (09:24)
[2018-02-22] MEDS: Sertraline* 50 MG TAB PO SCH (09:25)
--- NOTE | 2018-02-22 11:13 | PN ---
Date of Service: 02/22/18 Critical Care Services: Alert and oriented this AM. No issues overnight. Is on vancomycin and PIP/TAZO for empiric coverage of recent fever and leukocytosis (possible sources are peritoneal fluid and aortic valve). DANIEL for today cancelled because of impending transfer to [facility]. Vital Signs: Temp Pulse Resp BP SpO2 FiO2 99.7 F 92 18 139/91 95 30 NOTE: Afebrile overnight Physical Exam: Gen:Alert and appears comfortable Lungs:Clear Extremities:No cyanosis or edema Fluid Balance (Past 24 Hours): 02/21/18 02/22/18 06:59 06:59 Intake Total 551 1759 Output Total 0 150 Balance 551 1609 Weight 147 lb 142 lb Intake: IV Fluids 61 NS (0.9%) 61 IVPB 91 498 ABX - PIPERACILLIN 91 498 Oral 460 1200 Output: Urine 0 150 Other: Estimated Void Medium # Bowel Movements 0 0 # Voids Labs: 02/21/18 02/22/18 11:30 08:54 Fluid Source Peritonial fluid Fluid Volume 4 Fluid Color Colorless Fluid Appearance Clear Fluid WBC 148 Fluid RBC 9 Fluid Tot Cell Count 100 Fluid Neutrophils 26 Fluid Lymphocytes 37 Fluid Monocytes 37 Fluid Cell Count Rvw By Fluid Comment Random Vancomycin 21.7 CBC and Comprehensive Med Panel pending. Studies: Sputum Gram's stain - mixed chrsitine. Peritoneal fluid Gram's stain: 2+ neutrophils, no organisms seen. Blood cultures - negative so far. Nutrition: Renal Diet Impression: Clinically stable. No evidence for an infection at the present time. Plan: 1. Peritoneal dialysis today 2. Continue vancomycin and PIP/TAZO until all cultures negative. 3. Patient to be sent out of ICU. 4. Await transfer to [facility].
[2018-02-22 12:12] LABS: ABS Basophils 0.1 10^3/ul (0-0.2); ABS Eosinophils 0 10^3/ul (0-0.6); ABS Lymphocytes 1.4 10^3/ul (1.0-4.8); ABS Monocytes 1.3 10^3/ul (0-0.8); ABS Neutrophils 9.4 10^3/ul (1.5-7.7); ABS Nucleated RBC 0 10^3/ul; Eosinophil % 0.1 % (0-6); Hematocrit 25 % (42-52); Hemoglobin 8.2 g/dl (14.0-18.0); Lymphocyte % 11.4 % (25-47); Mean Corpuscular HGB Conc 33 g/dl (31-36); Mean Corpuscular Hemoglobin 31 pg (27-31); Mean Corpuscular Volume 95 fL (80-94); Nucleated Red Blood Cells % 0.1; Platelet Count 157 10^3/ul (150-450); Red Blood Count 2.62 10^6/ul (4.00-5.40); Red Cell Distribution Width 16 % (10.5-15); White Blood Count 12.2 10^3/ul (3.5-10.8)
[2018-02-22 12:29] LABS: EGFR Non-African American 5.6 (>60)
[2018-02-22] MEDS ORDERED: Mupirocin 2% OINT* TUBE TOPICAL PRN (16:20)
[2018-02-22] MEDS ORDERED: Vancomycin(*) 1,000 MG in NS 0.9% 250 ML* 250 ML IVPB ONE (18:00)
[2018-02-23] MEDS: ZOSYN 3.375 GM Q12H per EXTENDED INFUSION IVPB SCH ×4 (02:12→17:07)
[2018-02-23] MEDS: Heparin VIAL(*) 5000 UNITS/ML VIAL (FIVE THOUSAND) SUBCUT SCH ×3 (05:44→21:00)
[2018-02-23 06:52] LABS: ABS Basophils 0.1 10^3/ul (0-0.2); ABS Eosinophils 0.1 10^3/ul (0-0.6); ABS Lymphocytes 2.5 10^3/ul (1.0-4.8); ABS Monocytes 1.4 10^3/ul (0-0.8); ABS Neutrophils 8.1 10^3/ul (1.5-7.7); ABS Nucleated RBC 0 10^3/ul; Eosinophil % 0.6 % (0-6); Hematocrit 25 % (42-52); Hemoglobin 8.1 g/dl (14.0-18.0); Lymphocyte % 20.4 % (25-47); Mean Corpuscular HGB Conc 33 g/dl (31-36); Mean Corpuscular Hemoglobin 31 pg (27-31); Mean Corpuscular Volume 95 fL (80-94); Mean Platelet Volume 9.1 um3 (7.4-10.4); Nucleated Red Blood Cells % 0; Platelet Count 178 10^3/ul (150-450); Red Blood Count 2.59 10^6/ul (4.00-5.40); Red Cell Distribution Width 16 % (10.5-15); White Blood Count 12.1 10^3/ul (3.5-10.8)
[2018-02-23 07:10] LABS: EGFR Non-African American 5.6 (>60)
[2018-02-23] MEDS: Omeprazole CAP* 20 MG PO SCH (08:00)
[2018-02-23] MEDS: Hydroxychloroquine TAB* 200 MG PO SCH ×2 (08:00→20:59)
[2018-02-23] MEDS: Metoprolol Succinate XL TAB* 25 MG PO SCH (08:00)
[2018-02-23] MEDS: Calcitriol CAP* 0.25 MCG PO SCH (08:00)
[2018-02-23] MEDS: Sertraline* 50 MG TAB PO SCH (08:00)
[2018-02-23] MEDS: MYCOPHENOLATE 360 MG PO SCH ×2 (08:01→20:59)
[2018-02-23] MEDS: Sevelamer TAB* 800 MG PO SCH ×3 (08:01→17:07)
[2018-02-23] MEDS: Aspirin EC TAB* 325 MG PO SCH (08:01)
[2018-02-23] MEDS: Folic Acid TAB* 1 MG PO SCH (08:01)
[2018-02-23] MEDS: Gabapentin CAP(*) 300 MG PO SCH (08:01)
[2018-02-23] MEDS ORDERED: fentaNYL* 50 MCG/ML 2 ML VIAL (100 MCG VIAL) ONE (14:11)
[2018-02-23] MEDS ORDERED: Midazolam* 1 MG/ML 10 ML VIAL (10 MG) ONE (14:11)
[2018-02-23] MEDS ORDERED: Flumazenil* 0.1 MG/ML 5 ML MDV ONE (14:11)
[2018-02-23] MEDS ORDERED: Naloxone* 0.4 MG/ML 1 ML VIAL ONE (14:11)
[2018-02-23] MEDS ORDERED: Lidocaine 2% VISCOUS* 15 ML UDC ONE (14:12)
--- NOTE | 2018-02-23 14:43 | PN ---
Subjective Date of Service: 02/23/18 Interval History: Pt seen and examined. Meds and labs reviewed. CC: N/A ROS: Denied SUGGS/dizziness, F/C, N/V, CP, SOB, increased cough, sputum production , abd pain, diarrhea, constipation, dysuria, myalgias, arthralgias, throat pain , and new skin lesions. The rest of the 14 point ROS are unremarkable. PHYSICAL EXAM: GEN APPEARANCE: Awake, not in acute distress HEENT: NC/AT, PERRLA, moist oral mucosa, (-) throat erythema NECK: Soft, supple, (-) cervical LAD, (-)JVD HEART: S1S2 WNL, RRR, No MRG CHEST: CTA, BL, GAE, No W/R/R ABD: Soft, ND/NT, NABS 4x Q EXT: No C/C/E SKIN: Warm to touch PSYCH: No active psychosis, hallucinations, depression, SI/HI Objective Active Medications: Aspirin (Ecotrin Ec Tab*) 325 mg PO DAILY [facility] Last Admin: 02/23/18 08:01 Dose: 325 mg Calcitriol (Rocaltrol Cap*) 1 mcg PO DAILY [facility] Last Admin: 02/23/18 08:00 Dose: 1 mcg Dextrose (D50w Syringe 50 Ml*) 25 gm IV PUSH ONCE PRN PRN Reason: FS < 60 Last Admin: 02/19/18 08:42 Dose: 25 gm Folic Acid (Folvite Tab*) 5 mg PO DAILY [facility] Last Admin: 02/23/18 08:01 Dose: 5 mg Gabapentin (Neurontin Cap(*)) 600 mg PO DAILY [facility] Last Admin: 02/23/18 08:01 Dose: 600 mg Heparin Sodium (Porcine) (Heparin Vial(*)) 5,000 units SUBCUT Q8HR [facility] Last Admin: 02/23/18 13:39 Dose: 5,000 units Hydroxychloroquine Sulfate (Plaquenil Tab*) 200 mg PO BID [facility] Last Admin: 02/23/18 08:00 Dose: 200 mg Piperacillin Sod/Tazobactam (Sod 3.375 gm/ Sodium Chloride) 100 mls @ 25 mls/ hr IVPB Q12H [facility] Last Admin: 02/23/18 02:12 Dose: 25 mls/hr Metoprolol Succinate (Toprol Xl Tab*) 37.5 mg PO DAILY [facility] Mupirocin (Bactroban 2 % Oint*) 1 applic TOPICAL DAILY PRN PRN Reason: .APPLY TO PD EXIT SITE DAILY Mycophenolate Sodium (Myfortic (Nf)) 720 mg PO BID [facility] Last Admin: 02/23/18 08:01 Dose: 720 mg Omeprazole (Prilosec Cap*) 20 mg PO DAILY@0730 [facility] Last Admin: 02/23/18 08:00 Dose: 20 mg Oxycodone HCl (Roxycodone Tab*) 5 mg PO Q4H PRN PRN Reason: PAIN Last Admin: 02/22/18 21:32 Dose: 5 mg Pharmacy Consult (Zosyn Per Pharmacy*) 1 note FOLLOW UP .ZOSYN PER PHARMACY [facility] Sertraline HCl (Zoloft*) 75 mg PO DAILY [facility] Last Admin: 02/23/18 08:00 Dose: 75 mg Sevelamer Carbonate (Renvela Tab*) 2,400 mg PO AC [facility] Last Admin: 02/23/18 09:34 Dose: Not Given Vital Signs - 8 hr 02/23/18 02/23/18 02/23/18 07:52 08:00 08:01 Temperature 97.9 F Pulse Rate 87 Respiratory 16 16 16 Rate Blood Pressure 143/86 (mmHg) O2 Sat by Pulse 97 Oximetry 02/23/18 11:24 Temperature 98.1 F Pulse Rate 77 Respiratory 18 Rate Blood Pressure 151/87 (mmHg) O2 Sat by Pulse 95 Oximetry Oxygen Devices in Use Now: None Result Diagrams: 02/23/18 06:36 02/23/18 06:36 Microbiology and Other Data: Microbiology 02/18/18 03:49 Urine Culture - Final Urine No Growth (<1,000 CFU/mL) 02/17/18 15:15 Nasal Screen MRSA (PCR) - Final Nasal Mrsa Not Detected Assess/Plan/Problems-Billing Assessment: 33 yo M with h/o SLE, lupus nephritis and pericarditis, renal cell ca s/p nephrectomy, aortic valve surgery at [facility] this summer presents after overdosing on Tramadol, subsequent seizure, intubation on 02/17/18, extubation 02/18/18 - Patient Problems (1) CVA (cerebral vascular accident) Current Visit: Yes Status: Acute Code(s): I63.9 - CEREBRAL INFARCTION, UNSPECIFIED SNOMED Code(s): 184318562 Comment: -MRI: acute left cerebellar lobe and left thalamus -Continue ASA -Will check fasting lipid levels in AM -TTE did not reveal any PFO nor thrombus -Awaiting for DANIEL today -Differentials: lupus vasculitis, vs cardiac emboli (being ruled out by DANIEL today) vs, primary arteriosclerotic disease (2) Seizure Current Visit: Yes Status: Acute Code(s): R56.9 - UNSPECIFIED CONVULSIONS SNOMED Code(s): 29887756 Comment: -Initial seizure possibly from tramadol overdose but multifactorial in the setting of acute CVA? -Trazodone held. Continue Zoloft. -Neurology following (3) Hypoglycemia Current Visit: Yes Status: Acute Code(s): E16.2 - HYPOGLYCEMIA, UNSPECIFIED SNOMED Code(s): 462793588 Comment: -Resolved -Cont fingerstick Q4H (4) ESRD (end stage renal disease) on dialysis Current Visit: No Status: Acute Code(s): N18.6 - END STAGE RENAL DISEASE; Z99.2 - DEPENDENCE ON RENAL DIALYSIS SNOMED Code(s): 908757235 Comment: -On PD w/AV fistula for future HD -Defer with renal (5) Fever Current Visit: No Status: Acute Code(s): R50.9 - FEVER, UNSPECIFIED SNOMED Code(s): 120962038 Comment: -CXR, blood culture, urine On immunosuppressives -Repeat culture of Blood and peritoneal fluid (02/21/18): (-) Growth x 2days -Continue Zosyn---consider narrowing in AM if continues to be negative -?UTI vs CVA (6) Altered mental status Current Visit: Yes Status: Acute Code(s): R41.82 - ALTERED MENTAL STATUS, UNSPECIFIED SNOMED Code(s): 364816983 Comment: See above (7) HTN (hypertension) Current Visit: No Status: Acute Code(s): I10 - ESSENTIAL (PRIMARY) HYPERTENSION SNOMED Code(s): 03272462 Comment: -Will increase Metoprolol succinate to 37.5 mg PO qday (8) Lupus (systemic lupus erythematosus) Current Visit: Yes Status: Acute Code(s): M32.9 - SYSTEMIC LUPUS ERYTHEMATOSUS, UNSPECIFIED SNOMED Code(s): 39786844 Comment: -Continue Plaquenel and Cell cept for now -Per pt and family, his transfer to [facility] and/or [facility] already cancelled by Dr. 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
--- NOTE | 2018-02-23 15:18 | TEE ---
Patient: ANGIE KAPOOR [facility] Rec#: [id number] : 1985 Date: 02/23/2018 Age: 33y Height: 173 cm / 68.1 in Weight: 68 kg / 149.9 lbs Sex: M BSA: 1.81 Room#: 452 Admit Date#: 02/17/2018 Type: Inpatient Referring: Agnes Elizondo Performing: Yojana Langford MD Reading: Yojana Langford MD Claim Inspector: Nolvia Jones RDCS,RDMS Nurse: Luz Can RN Transesophageal Echocardiogram Indication: CVA BP: 137/77 HR: 83 Rhythm: NSR Findings History: Bioprosthetic AVR, lupus related vegetation, SLE, ESRD, RCC with nephrectomy, HTN Technical Comments: The study quality is good. Left Ventricle: The left ventricular chamber size is normal. Left ventricular systolic function is at the lower limits of normal. The estimated ejection fraction is 45-50%. The assessment of diastolic function is non-diagnostic. Left Atrium: The left atrium is mildly dilated. There is no thrombus visualized in the left atrial appendage. Right Ventricle: The right ventricular cavity size is normal. The right ventricular global systolic function is low normal. Right Atrium: The right atrial cavity size is normal. A prominent eustachian valve is noted in the right atrium. The bubble study is negative. A patent foramen ovale is not demonstrated with color Doppler and agitated contrast. Aortic Valve: There is a trace of aortic regurgitation. A bio-prosthetic aortic valve is present. The prosthetic aortic valve leaflets are normal. The bio-prosthetic aortic valve appears to be functioning normally. Mitral Valve: The mitral valve leaflets appear normal. There is mild mitral regurgitation. There is no evidence of mitral stenosis. Tricuspid Valve: The tricuspid valve leaflets are normal. There is trace to mild tricuspid regurgitation. Pulmonic Valve: The pulmonic valve structure is not well visualized. There is no evidence of pulmonic regurgitation. Aorta: The aortic root appears normal. Pulmonary Artery: The main pulmonary artery is not well visualized. Venous: The inferior vena cava appears normal. The flow pattern of the pulmonary veins appear normal. The superior vena cava appears normal. DANIEL Procedures: All standard views were attempted within the limitations of patient tolerance and safety. History and physical as well as labs were reviewed. The patient was in a fasting state. Risks and benefits of the procedure, including alternatives, were discussed and written informed consent was obtained. The patient and/or their health care compliance representative dealer expressed understanding of the procedure, risks and benefits. Baseline and continuous monitoring of blood pressure, heart rate, pulse oximetry and heart rhythm was performed throughout the procedure. The appropriate time-out procedure was performed as per [facility] protocol. The patient was placed in the left lateral decubitus position. The patient's posterior pharynx was anesthetized with 20ml of 2% viscous lidocaine. The patient received IV Midazolam with a total dose of 6 mg. The patient received IV Fentanyl with a total dose of 50 mcg. An oral bite block was inserted for protection of oral dentition. The multiplane transesophageal echocardiogram probe was inserted through the posterior oropharynx and advanced into the esophagus without difficulty. Multiple 2D images were obtained of the heart and its related structures. Color flow Doppler was used for evaluation. Spectral Doppler was also used. The atrial septum was interrogated with color flow Doppler. At the conclusion of the procedure the probe was removed with continuous suction without complications. The patient tolerated the procedure with no apparent complications. Contrast: Intravenous agitated saline contrast was used to assess intracardiac shunting. Conclusions Left ventricular systolic function is at the lower limits of normal. The estimated ejection fraction is 45-50%. The assessment of diastolic function is non-diagnostic. The left atrium is mildly dilated. There is no thrombus visualized in the left atrial appendage. The bubble study is negative. A patent foramen ovale is not demonstrated with color Doppler and agitated contrast. There is a trace of aortic regurgitation. A bio-prosthetic aortic valve is present. The prosthetic aortic valve leaflets are normal. The bio-prosthetic aortic valve appears to be functioning normally. There is a trace of aortic regurgitation. There is mild mitral regurgitation. There is trace to mild tricuspid regurgitation. No obvious intracavitary masses, clots , vegetation or shunts.
[2018-02-23] MEDS: oxyCODONE TAB* 5 MG TAB PO PRN (20:59)
--- NOTE | 2018-02-23 21:55 | CONS ---
NEUROLOGY FOLLOWUP NOTE: DATE OF FOLLOWUP: 02/23/18 HOSPITALIST: Dr. Wren. LOCATION: He is an inpatient in room 452. CHIEF COMPLAINT: Encephalopathy, seizure, stroke. INTERVAL HISTORY: Since last seen 2 days, Jose Enrique is doing better. He is walking and seems more steady. His friends say that he is not so confused or forgetful like he was yesterday and the days before. MEDICATIONS: Reviewed and he is on: 1. Aspirin 325 mg p.o. daily. 2. Rocaltrol 1 mcg p.o. daily. 3. Folic acid 5 mg p.o. daily. 4. Gabapentin 600 mg p.o. daily. 5. Heparin 5000 units subcu q.8 hours. 6. Plaquenil 200 mg p.o. b.i.d. 7. Metoprolol 37.5 mg extended release once per day. 8. Mycophenolate sodium 720 mg p.o. b.i.d. 9. Oxycodone 5 mg p.o. q.4 hours as needed for pain. 10. Zosyn. 11. Sertraline 75 mg p.o. daily. 12. Renvela 2400 mg p.o. daily. PHYSICAL EXAMINATION: On examination, he is afebrile, temperature 97.8. Blood pressure 144/81, heart rate in the 70s and regular. He is more alert and is able to ambulate independently, but slowly. He has a little bit of asterixis in his hands. Speech is soft, but clear. LABORATORY DATA: Includes chemistries from today notable for a BUN at 58 and creatinine 10.6. It was as low as 8.04 on 02/21/18 after hemodialysis. His sodium is 133, glucose 103. CBC notable for white blood cell count elevated to 12.1, hemoglobin 8.1 and hematocrit down to 25. Platelet count is 178,000. IMPRESSION: Seizure and 2 small strokes with significant improvement. 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 He just had a transesophageal echocardiogram earlier today and it did not reveal an embolic source. We will just continue aspirin for antiplatelet therapy at this point in time. I do not recommend an anticonvulsant as I think his seizure was precipitated by the tramadol. [id number]/[facility] #: [id number] [facility]
[2018-02-24] MEDS: ZOSYN 3.375 GM Q12H per EXTENDED INFUSION IVPB SCH ×6 (01:50→14:39)
[2018-02-24] MEDS: Heparin VIAL(*) 5000 UNITS/ML VIAL (FIVE THOUSAND) SUBCUT SCH ×2 (05:14→14:39)
[2018-02-24 07:13] LABS: ABS Basophils 0.1 10^3/ul (0-0.2); ABS Eosinophils 0 10^3/ul (0-0.6); ABS Lymphocytes 2.9 10^3/ul (1.0-4.8); ABS Monocytes 1.3 10^3/ul (0-0.8); ABS Nucleated RBC 0 10^3/ul; Eosinophil % 0.1 % (0-6); Hematocrit 25 % (42-52); Hemoglobin 7.9 g/dl (14.0-18.0); Lymphocyte % 21.6 % (25-47); Mean Corpuscular HGB Conc 32 g/dl (31-36); Mean Corpuscular Hemoglobin 31 pg (27-31); Mean Corpuscular Volume 97 fL (80-94); Mean Platelet Volume 8.8 um3 (7.4-10.4); Nucleated Red Blood Cells % 0.1; Platelet Count 201 10^3/ul (150-450); Red Blood Count 2.55 10^6/ul (4.00-5.40); Red Cell Distribution Width 17 % (10.5-15); White Blood Count 13.3 10^3/ul (3.5-10.8)
[2018-02-24 07:52] LABS: EGFR Non-African American 5.7 (>60)
[2018-02-24] MEDS: Omeprazole CAP* 20 MG PO SCH (07:53)
[2018-02-24] MEDS: Sevelamer TAB* 800 MG PO SCH ×2 (08:44→12:31)
[2018-02-24] MEDS: Hydroxychloroquine TAB* 200 MG PO SCH (08:45)
[2018-02-24] MEDS: MYCOPHENOLATE 360 MG PO SCH (08:45)
[2018-02-24] MEDS: Aspirin EC TAB* 325 MG PO SCH (08:46)
[2018-02-24] MEDS: Sertraline* 50 MG TAB PO SCH (08:46)
[2018-02-24] MEDS: Gabapentin CAP(*) 300 MG PO SCH (08:46)
[2018-02-24] MEDS: Folic Acid TAB* 1 MG PO SCH (08:47)
[2018-02-24] MEDS: Calcitriol CAP* 0.25 MCG PO SCH (08:48)
[2018-02-24] MEDS ORDERED: Metoprolol Succinate XL TAB* 25 MG PO SCH (09:00)
[2018-02-24] MEDS ORDERED: Epoetin Alfa* 10,000 UNITS/ML VIAL SUBCUT ONE (16:00)
[2018-02-24 18:07] VITALS: BP 138/72
--- NOTE | 2018-02-25 07:43 | DS ---
CC: Dr. Clements; Dr. Dhruv Smith; Dr. Colton Zaragoza; Dr. Herminia Lay; Dr. Chandrakant Leigh; Dr. Sang Mims DISCHARGE SUMMARY: DATE OF ADMISSION: 02/17/18 DATE OF DISCHARGE: 02/24/18 DISCHARGE DIAGNOSES: 1. 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 2. Seizure disorder . 3. Hypoglycemia likely secondary to seizure disorder status post trazodone accidental overdose, reso lved. 4. History of end-stage renal disease. 5. Fever, resolved possibly due to UTI. 6. 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 7. History of hypertension. 8. History of lupus. HISTORY OF PRESENT ILLNESS/HOSPITAL COURSE: The patient is a 33-year-old gentleman with hi story of lupus nephritis with subsequent development of ESRD, on peritoneal dialysis who called [phone] o n 02/17/18 after he took eight 50 mg tablets of tramadol. At that time, he stated that this pain was uncontrollable and could not sleep and was admitted to our facility and started seizing requiring in tubation for airway protection. He was intubated from 02/17/18 and extubated the following day. Post extubation, his EEG showed no epileptiform abnormalities and Dr. Zaragoza followed the patient during his evaluation and treatment and seizures were thought to be likely related to tramadol overdose. On 02/19/18, the patient continues to have intermittent twitching and was very lethargic with episodes of hypoglycemia. Subsequently, an MRI of his head was done, which suggested that the patient also had a recent CVA of the left cerebellar and left thalamus and the patient was placed on aspirin with LDL found to be 28. He also had a DANIEL given his TTE did not show any PFO nor thrombus and the DANIEL refle cted this impression as well with no ventricular thrombus seen as well; it is confirming that that th e patient does not have any PFO. 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 The patient and family mentioned that they have already spoken with a bilingual sales representative who feels that he is safe enough to be followed up by him as an outpatient and hence will defer. The patient had been advised to follow up and/or call his PCP within 3 days post discharge. Follow u p with his bilingual sales representative ZACHARY. He was advised that if his symptoms resume or develop new ones or fe el unwell for any reason to call his PCP and if he cannot entertain him due to scheduling issues shan e to call [facility] if the issue is considered nonemergent. He was advised to call my office regarding any questions, concerns, or further clarification regarding his discharge plans and/ or prescriptions and to take his medications as prescribed. DISCHARGE MEDICATIONS: As follows: 1. Aspirin 325 mg p.o. daily. The patient given 30 day tablets of 325. We will defer with PCP and/ or bilingual sales representative to decrease this to 81 mg after a month with possible followup with Dr. Zaragoza as an outpatient but we will leave open-ended per Dr. Zaragoza. 2. Calcitriol 1 mcg p.o. daily. 3. Folic acid 5 mg p.o. daily. 4. Gabapentin 300 mg p.o. t.i.d. 5. Hydroxychloroquine 200 mg p.o. b.i.d. 6. Metoprolol succinate 25 mg p.o. daily. 7. Mycophenolate sodium 720 mg p.o. b.i.d. 8. Omeprazole 20 mg p.o. daily. 9. Oxycodone 5 mg p.o. q.4 p.r.n. 10. Sertraline 75 mg p.o. daily. 11. Sevelamer 2400 mg p.o. q.a.c. 12. Tylenol 2000 mg p.o. q.a.m. p.r.n. 13. Buprenorphine 7.5 mcg transdermal q. weekly. 14. Cefpodoxime 200 mg p.o. q.12 for 7 more days. 15. Cetirizine 5 mg p.o. daily. 16. Floranex tab 1 tab p.o. daily for 14 days. 17. Ritalin 10 mg p.o. daily. 18. Mupirocin 1 application topically daily for 7 days. 19. Ondansetron 4 to 8 mg p.o. daily p.r.n. 20. Trazodone 50 mg p.o. q.h.s. REVIEW OF SYSTEMS: On review of systems prior to discharge, the patient denied any recent headaches, dizziness, fevers, chills, nausea, vomiting, chest pain, shortness of breath, increased cough and/or sputum production, abdominal pain, diarrhea, constipation, pain and/or increased frequency on urinat ion, myalgias, arthralgias, throat pain, or new skin lesions. The rest of the 14-point review of sys tems are otherwise unremarkable. PHYSICAL EXAMINATION: Reveals the most recent vital signs of record with blood pressure of 145/89, 9 8.3 degrees Fahrenheit, 88 beats per minute heart rate, 16 per minute respiratory rate, saturating at 97% on room air. General Appearance: The patient is awake, alert, and oriented x3, not in acute di stress. HEENT: Normocephalic, atraumatic. PERRLA. Extraocular muscles intact. Negative for icteru s. Moist oral mucosa. Negative throat erythema. Neck is soft, supple with no cervical lymphadenopa thy. No JVD. Heart: S1, S2 within normal limits. Regular rate and rhythm. No murmurs, rubs, and g allops. Chest: Clear to auscultation bilaterally. Good air entry. No wheezes, rales, or rhonchi. Abdomen is soft, nondistended, nontender. Normoactive bowel sounds x4 quadrants. Extremities: No c yanosis, clubbing, or edema. Psychiatric: No active psychosis, depression, suicidal nor homicidal i deations. Skin is warm to touch. TIME SPENT: The total time spent evaluating the patient, reviewing pertinent data, and appropriate d ocumentation is 65 minutes. [id number]/[facility] #: [id number]
== END 2018-02-24 17:50 | disposition home health service (06) | DRG 64 ==
LOC: ED 11:51 → ICU 14:36 → MED 02-18 15:01 → ICU 02-21 00:07 → MEDTELE 02-22 12:10
PROVIDERS: ADMIT Internal Medicine Critical Care Medicine; ATTEND Student in an Organized Health Care Education/Training Program
PROC: 0BH17EZ Insertion of Endotracheal Airway into Trachea, Via Natural or Artificial Opening (ICD-10-PCS; principal; 2018-02-17)
PROC: 02H633Z Insertion of Infusion Device into Right Atrium, Percutaneous Approach (ICD-10-PCS; 2018-02-17)
PROC: 05HM33Z Insertion of Infusion Device into Right Internal Jugular Vein, Percutaneous Approach (ICD-10-PCS; 2018-02-17)
PROC: B244ZZZ Ultrasonography of Right Heart (ICD-10-PCS; 2018-02-17)
PROC: 5A1945Z Respiratory Ventilation, 24-96 Consecutive Hours (ICD-10-PCS; 2018-02-17)
PROC: 4A10X4Z Monitoring of Central Nervous Electrical Activity, External Approach (ICD-10-PCS; 2018-02-17)
PROC: 3E1M39Z Irrigation of Peritoneal Cavity using Dialysate, Percutaneous Approach (ICD-10-PCS; 2018-02-17)
PROC: 0BP1XDZ Removal of Intraluminal Device from Trachea, External Approach (ICD-10-PCS; 2018-02-18)
PROC: 4A00X4Z Measurement of Central Nervous Electrical Activity, External Approach (ICD-10-PCS; 2018-02-19)
PROC: 05PYX3Z Removal of Infusion Device from Upper Vein, External Approach (ICD-10-PCS; 2018-02-19)
PROC: B24BZZ4 Ultrasonography of Heart with Aorta, Transesophageal (ICD-10-PCS; 2018-02-22)
DX: I63.9 Cerebral infarction, unspecified (principal); N18.6 End stage renal disease; G92 Toxic encephalopathy; I12.0 Hypertensive chronic kidney disease with stage 5 chronic kidney disease or end stage renal disease; N39.0 Urinary tract infection, site not specified; T40.4X1A Poisoning by other synthetic narcotics, accidental (unintentional), initial encounter; G40.409 Other generalized epilepsy and epileptic syndromes, not intractable, without status epilepticus; M32.9 Systemic lupus erythematosus, unspecified; F32.9 Major depressive disorder, single episode, unspecified; G89.29 Other chronic pain; J45.909 Unspecified asthma, uncomplicated; G62.9 Polyneuropathy, unspecified; F41.0 Panic disorder [episodic paroxysmal anxiety]; F19.10 Other psychoactive substance abuse, uncomplicated; Y92.9 Unspecified place or not applicable; I70.90 Unspecified atherosclerosis; G40.909 Epilepsy, unspecified, not intractable, without status epilepticus; E16.2 Hypoglycemia, unspecified; Z90.5 Acquired absence of kidney; Z85.528 Personal history of other malignant neoplasm of kidney; Z95.2 Presence of prosthetic heart valve; Z88.8 Allergy status to other drugs, medicaments and biological substances; Z87.01 Personal history of pneumonia (recurrent); Z86.14 Personal history of Methicillin resistant Staphylococcus aureus infection; Z83.3 Family history of diabetes mellitus; Z82.49 Family history of ischemic heart disease and other diseases of the circulatory system; Z72.89 Other problems related to lifestyle; I25.2 Old myocardial infarction; Z90.81 Acquired absence of spleen; Z82.3 Family history of stroke; Z81.8 Family history of other mental and behavioral disorders; Z83.49 Family history of other endocrine, nutritional and metabolic diseases; Z79.82 Long term (current) use of aspirin
CPT/HCPCS: 36415; 70450; 70551; 71045; 71046; 80048; 80053; 80061; 80202; 80307; 80320; 80329; 81003; 81015; 82140; 82550; 82947; 83605; 83735; 84100; 85025; 85027; 85060; 85610; 86160; 86162; 87040; 87070; 87086; 87205; 87641; 89051; 93005; 93306; 93312; 93325; 93880; 94003; 95819; 95822; 99156; 99157; 99285; A9270-GY; G0480; G8978-GP-CL; G8979-GP-CI; J0330; J0885; J1644; J2060; J2250; J2270; J2310; J2543; J2704; J3010; J3370

== ENCOUNTER 2018-03-05 13:16 | Emergency (ER) | payer MEDICARE, MEDICAID ==
--- OUTSIDE RECORDS SUMMARY | 2018-03-05 14:16 | XMS REPORT ---
:1985 External Reference #:[id number] Author Organization [facility] Address [address] [place] [address] [place] [address] Phone [phone] Care Team Providers Name Role Phone Arias Astudillo MD Care Team Information Professor Of Astronomy Unavailable Mirza Valentine DO Primary Care Physician Unavailable Payers Type Date Identification Numbers Payment Provider Subscriber Medicare Primary Policy Number: [id number] Medicare Jose Enrique Puri PayID: [id number] [address] [place] [address] Medigap Part B Expires: 2016 Policy Number: [id number] [facility] Jose Enrique Puri PayID: [id number] [address] [place] [address] Medigap Part B Expires: 2016 Policy Number: [id number] Medicaid Jose Enrique Puri Group Name: 1 1 [address] PayID: [id number] [place] [address] Problems Date Description Provider Status Onset: 08/06/2016 Systemic lupus erythematosus with Gricelda Arango M.D. Active pericarditis Onset: 08/06/2016 First degree atrioventricular block Gricelda Arango M.D. Active Onset: 08/06/2016 Hypertrophic cardiomyopathy associated Gricelda Arango M.D. Active with another disorder Onset: 01/10/2018 Valvular endocarditis Gricelda Arango M.D. Active Onset: 01/10/2018 Heart valve replacement Gricelda rAango M.D. Active Family History Date Family Member(s) Problem(s) Comments General No Current Problems Father Diabetes Mother Diabetes Social History Type Date Description Comments Occupation Disabled Cigarette Use Former Cigarette Smoker ETOH Use Occasionally consumes beer Smoking Patient is a former smoker Recreational Drug Use Denies Drug Use Daily Caffeine Consumes on average 2 cups of regular coffee per day Exercise Type/Frequency Exercises regularly Allergies, Adverse Reactions, Alerts Date Description Reaction Status Severity Comments 05/14/2016 Hydralazine active fatigued, weak, near syncope 05/14/2016 Prednisone active suicidal Medications Medication Date Status Form Strength Qnty SIG Indications Ordering Provider Metoprolol Active Tablets ER 25mg 90tabs 1 by I10 Marybeth S. Succinate ER 018 24HR mouth Foster, every day N.P. Gabapentin Active Capsules 100mg 60caps 200mg po Charanjit Maddox three Amauri, times a M.D. day Tramadol HCL Active Tablets 50mg 20tabs 1 tablet M32.14 Charanjit Maddox by mouth Amauri, once M.D. daily as needed, pain I30.9 Plaquenil 05/14/2016 Active Tablets 200mg 180tabs Please Charanjit take 2 by Amauri, mouth M.D. daily ongoing Renvela Active Pills 3 pills Unknown with meals Nicotine Polacrilex Active Gum 2mg Stuppel, Mirza, DO Sertraline HCL Active Tablets 50mg 1 and 1/2 Stuppel, tablet po Mirza, DO daily Zyrtec Allergy Active Tablets 10mg 1 by mouth Unknown every day or as needed Omeprazole Active Capsules DR 20mg 1 by mouth Unknown every day Trazodone HCL Active Tablets 50mg 1 tablet Unknown at bedtime as needed Methylphenidate HCL Active Tablets 10mg 1 tablet Stuppel, po as Mirza, DO needed Tyenol Extra Active 500mg 4 tablet Unknown Strenght po daily Zofran Active as needed Unknown Mycophenolate Sodium Active Tablets DR 360mg Take 2 Unknown Tablets By Mouth Two Times Daily Please Titrate as Discussed Calcitriol Active Capsules 1 tablet Unknown PO daily Cetirizine HCL Active Tablets 10mg 1 by mouth Unknown every day Dicyclomine HCL Active Capsules 10mg prn Unknown Loperamide HCL Active Tablets 2mg prn Unknown Buprenorphine Active Patches 7.5mcg/ apply 2 Unknown Weekly HR patch per week Cefpodoxime Proxetil Active Tablets 200mg 1 by mouth Unknown twice daily until 03/04 Methylprednisolone Active Tablets 8mg 1 PO daily Unknown Lyrica 08/23/2016 - Hx Capsules 50mg 30caps take one 08/24/2016 capsule/christina Robb daily M.D. by mouth Colchicine 07/23/2016 - Hx Capsules 0.6mg 30caps 1 by mouth Charanjit 01/09/2018 every day Brant Baugh Mycophenolate 05/14/2016 - Hx Tablets 500mg 120tabs take two Charanjit Mofetil 01/09/2018 tablets by Amauri, mouth M.DAlem twice a day Tums - Hx Chewtabs 500mg as needed Unknown 06/04/2016 Chitosan - Hx Tablets 500mg Unknown 06/25/2016 Amlodipine Besylate - Hx Tablets 10mg 60tabs 1 by mouth Charanjit 01/09/2018 every day Brant Baugh Toprol XL - Hx Tablets ER 100mg 1 by mouth Unknown 06/04/2016 24HR every day Citalopram - Hx Tablets 40mg 1 by mouth Unknown Hydrobromide 07/06/2016 every day Vitamin D3 Ultra - Hx Capsules 5000Uni one cap Unknown Strength 01/09/2018 t three days a week on dialysis days Vitamin B-12 - Hx Tablets 5000mcg Unknown 06/08/2016 Dispers Claritin - Hx Capsules 10mg 1 by mouth Unknown 06/04/2016 every day Methylprednisolone - Hx Tablets 4mg 180tabs Please Charanjit 01/09/2018 take 3 Amauri, daily tabs M.D. for 1 week then 2 tabs daily for 1 week then 1 tab daily for 1 week then stop Trazodone HCL - Hx Tablets 50mg 30tabs 1 tablet Charanjit 08/23/2016 by mouth Amauri, at bedtime M.DAlem as needed for insomnia Flonase Allergy - Hx Suspension 50mcg/A spray 1 Unknown Relief 01/09/2018 ct spray in each nostril twice daily Prednisone - Hx taper dose Unknown 08/06/2016 as directed Lyrica - Hx as needed Unknown 08/23/2016 Levofloxacin - Hx Tablets one by Unknown 01/09/2018 mouth daily for 10 days Amoxicillin/Clavulan - Hx Tablets 500-125 Unknown ate Potassium 01/09/2018 mg Restoril - Hx Capsules as needed Unknown 01/09/2018 for sleep Metoprolol Tartrate - Hx Tablets 25mg Take 1 Unknown 03/03/2018 Tablet By Mouth Two Times Daily ( taking 1 tablet po Daily) Vital Signs Date Vital Result Comment 03/03/2018 Height 68 inches 5'8" Weight 155.00 lb with shoes Heart Rate 88 /min BP Systolic Sitting 128 mmHg Rue reg cuff BP Diastolic Sitting 80 mmHg Rue reg cuff BP Systolic Standing 124 mmHg Rue reg cuff BP Diastolic Standing 80 mmHg Rue reg cuff Respiratory Rate 16 /min BMI (Body Mass Index) 23.6 kg/m2 01/10/2018 Height 68 inches 5'8" Weight 165.00 lb with shoes Heart Rate 74 /min BP Systolic Sitting 140 mmHg Rue reg cuff BP Diastolic Sitting 90 mmHg Rue reg cuff BP Systolic Standing 136 mmHg Rue reg cuff BP Diastolic Standing 78 mmHg Rue reg cuff Respiratory Rate 16 /min BMI (Body Mass Index) 25.1 kg/m2 08/23/2016 Height 68 inches 5'8" Weight 176.00 lb Heart Rate 91 /min BP Systolic Sitting 150 mmHg BP Diastolic Sitting 89 mmHg Body Temperature 97.8 F Pain Level 2 BMI (Body Mass Index) 26.8 kg/m2 08/06/2016 Height 68 inches 5'8" Weight 175.00 lb Heart Rate 102 /min BP Systolic Sitting 150 mmHg BP Diastolic Sitting 93 mmHg Respiratory Rate 14 /min Body Temperature 98.2 F Pain Level 1 BMI (Body Mass Index) 26.6 kg/m2 08/06/2016 Height 68 inches 5'8" Weight 178.00 lb w/ shoes Heart Rate 104 /min reg BP Systolic Sitting 130 mmHg Rue, reg cuff BP Diastolic Sitting 70 mmHg Rue, reg cuff BP Systolic Standing 140 mmHg Rue BP Diastolic Standing 80 mmHg Rue Respiratory Rate 16 /min BMI (Body Mass Index) 27.1 kg/m2 Ejection Fraction 55-60% as of 07/27/16 echo 06/25/2016 Height 68 inches 5'8" Weight 169.00 lb Heart Rate 92 /min BP Systolic Sitting 140 mmHg BP Diastolic Sitting 90 mmHg Body Temperature 98.2 F Pain Level 0 BMI (Body Mass Index) 25.7 kg/m2 06/04/2016 Height 68 inches 5'8" Weight 179.00 lb Heart Rate 88 /min BP Systolic Sitting 140 mmHg BP Diastolic Sitting 80 mmHg Body Temperature 98.3 F Pain Level 0 BMI (Body Mass Index) 27.2 kg/m2 05/14/2016 Height 68 inches 5'8" Weight 174.00 lb Heart Rate 48 /min BP Systolic Sitting 60 mmHg BP Diastolic Sitting 40 mmHg BP Systolic Recheck 90 mmHg BP Diastolic Recheck 60 mmHg Respiratory Rate 14 /min Body Temperature 98.5 F Pain Level 4 BMI (Body Mass Index) 26.5 kg/m2 Results Test Date Test Result H/L Range Note Laboratory test finding 01/10/2018 Erythrocyte Sed Rate 120 mm/Hr High 0- 14 C Reactive Protein 65.24 mg/L High <8.01 Urine Culture And 07/26/2016 Urine Culture SEE RESULT BELOW 1 Sensitivities Laboratory test finding 07/26/2016 Magnesium 2.8 mg/dL High 1.9-2.7 Lipase 424 U/L High 11.0-82.0 Creatine Kinase(CK) 62 U/L 10-223 C Reactive Protein 38.09 mg/L High < 5.00 2 TSH (Thyroid Stim Horm) 1.00 mcIU/mL 0.34-5.60 Comp Metabolic Panel 07/26/2016 Sodium 132 mmol/L Low 133-145 Potassium 5.1 mmol/L High 3.5-5.0 Chloride 91 mmol/L Low 101-111 Co2 Carbon Dioxide 26 mmol/L 22-32 Anion Gap 15 mmol/L High 2-11 Glucose 95 mg/dL 70-100 Blood Urea Nitrogen 65 mg/dL High 6-24 Creatinine 12.67 mg/dL High 0.67-1.17 BUN/Creatinine Ratio 5.1 Low 8-20 Calcium 9.7 mg/dL 8.6-10.3 Total Protein 7.3 g/dL 6.4-8.9 Albumin 4.5 g/dL 3.2-5.2 Globulin 2.8 g/dL 2-4 Albumin/Globulin Ratio 1.6 1-3 Total Bilirubin 0.30 mg/dL 0.2-1.0 Alkaline Phosphatase 46 U/L 34-104 Alt 11 U/L 7-52 Ast 6 U/L Low 13-39 Egfr Non- 4.6 >60 Egfr 5.9 >60 3 CKMB 07/26/2016 CKMB ng/mL 1.3 ng/mL 0.6-6.3 Laboratory test finding 07/26/2016 B-Type Natriuretic Peptide 56 pg/mL 4 BNP Lactic Acid 0.7 mmol/L 0.5-2.0 5 Troponin-I (TnI) 0.01 ng/mL <0.04 6 CBC Auto Diff 07/26/2016 White Blood Count 13.0 10^3/uL High 3.5-10.8 Red Blood Count 3.76 10^6/uL Low 4.0-5.4 Hemoglobin 12.2 g/dL Low 14.0-18.0 Hematocrit 38 % Low 42-52 Mean Corpuscular Volume 101 fL High 80-94 Mean Corpuscular Hemoglobin 33 pg High 27-31 Mean Corpuscular HGB Conc 32 g/dL 31-36 Red Cell Distribution Width 17 % High 10.5-15 Platelet Count 245 10^3/uL 150-450 Mean Platelet Volume 10 um3 7.4-10.4 Abs Neutrophils 10.7 10^3/uL High 1.5-7.7 Abs Lymphocytes 1.4 10^3/uL 1.0-4.8 Abs Monocytes 0.9 10^3/uL High 0-0.8 Abs Eosinophils 0 10^3/uL 0-0.6 Abs Basophils 0.1 10^3/uL 0-0.2 Abs Nucleated RBC 0 10^3/uL Granulocyte % 82.0 % 38-83 Lymphocyte % 10.8 % Low 25-47 Monocyte % 6.6 % 1-9 Eosinophil % 0.1 % 0-6 Basophil % 0.5 % 0-2 Nucleated Red Blood Cells % 0 Laboratory test finding 07/26/2016 Partial Thrombo Time 27.2 seconds 26.0 -36.3 PTT D Dimer Quantitative < 200 ng/mL Less Than 230 7 Inr/Protime 07/26/2016 Inr 0.81 Low 0.89-1.11 Urinalysis Profile 07/26/2016 Urine Color Yellow Urine Appearance Clear Urine Specific [place] 1.011 1.010-1.030 Urine pH 8.0 5-9 Urine Urobilinogen Negative Negative Urine Ketones Negative Negative Urine Protein 2+(100 mg/dL) Negative Urine Leukocytes Negative Negative Urine Blood Negative Negative Urine Nitrite Negative Negative Urine Bilirubin Negative Negative Urine Glucose 2+(150 mg/dL) Negative Urine White Blood Cell Trace(0-5/hpf) Absent Urine Red Blood Cell Trace(0-2/hpf) Absent Urine Bacteria 1+ Absent CBC Auto Diff 06/25/2016 White Blood Count 13.3 10^3/uL High 3.5-10.8 Red Blood Count 3.56 10^6/uL Low 4.0-5.4 Hemoglobin 11.7 g/dL Low 14.0-18.0 Hematocrit 37 % Low 42-52 Mean Corpuscular Volume 104 fL High 80-94 Mean Corpuscular Hemoglobin 33 pg High 27-31 Mean Corpuscular HGB Conc 32 g/dL 31-36 Red Cell Distribution Width 20 % High 10.5-15 Platelet Count 295 10^3/uL 150-450 Mean Platelet Volume 9 um3 7.4-10.4 Abs Neutrophils 12.2 10^3/uL High 1.5-7.7 Abs Lymphocytes 0.7 10^3/uL Low 1.0-4.8 Abs Monocytes 0.3 10^3/uL 0-0.8 Abs Eosinophils 0 10^3/uL 0-0.6 Abs Basophils 0.1 10^3/uL 0-0.2 Abs Nucleated RBC 0 10^3/uL Granulocyte % 92.0 % High 38-83 Lymphocyte % 5.2 % Low 25-47 Monocyte % 2.2 % 1-9 Eosinophil % 0 % 0-6 Basophil % 0.6 % 0-2 Nucleated Red Blood Cells % 0 Laboratory test finding 06/25/2016 Complement C3 56 mg/dL 75 - 175 8 Complement C4 17 mg/dL 14 - 40 9 Laboratory test finding 06/25/2016 C Reactive Protein 3.95 mg/L < 5.00 10 Anti Double Stranded Dna AB <12.3 IU/mL 11 Laboratory test finding 06/04/2016 Complement C3 74 mg/dL 75 - 175 12 Complement C4 15 mg/dL 14 - 40 13 C Reactive Protein 20.16 mg/L High < 5.00 14 Anti Double Stranded Dna AB 19.7 IU/mL 15 1 SEE RESULT BELOW Name: JOSE ENRIQUE PURI : [address]: Nery Mixon DO Acct: [id number] Unit: [id number] AGE: 31 Location: [place] [address] Re07/26/16 SEX: M Status: ADM Moi SPEC: [id number] BESSY: 07/26/[address]: Shane Aranda MD REQ: [id number] RECD: 07/26/16 STATUS: JAVI ASH DR: [facility] Diego Doshi III, MD _ SOURCE: URINE SPDESC: ORDERED: Urine Culture Procedure Result Reported Site Urine Culture Final 07/28/16- 0815 ML Organism 1 ENTEROCOCCUS FAECALIS Leonore Count 25-50,000 (Moderate) CFU/ML 1. ENTEROCOCCUS FAECALIS M.I.C. RX --------- ------ Ampicillin <=2 S Penicillin 4 S Ciprofloxacin <=0.5 S Gentamicin High Level R Levofloxacin 1 S Linezolid 2 S Nitrofurantoin <=16 S * Quinupristin/Dalfopristin 8 R * Streptomycin High Level S Tetracycline >=16 R Tigecycline <=0.12 S Vancomycin 1 S Imipenem-Deduced S * Ampicillin/Sulbactam-Deduced S * These antibiotics are not available in the [facility] Formulary Contact the Microbiology Department for any additional antibiotic reporting. * ML - MAIN LAB ([facility]) . END OF REPORT * ML=Testing performed at Main Lab DEPARTMENT OF PATHOLOGY, [address] [place] [address] Jose Steiner M.D. Director [facility] # [id number] 2 Acute inflammation: >10.00 3 Because ethnic data is not always readily available, this report includes an eGFR for both -Americans and non- Americans. The National Kidney Disease Education Program (NKDEP) does not endorse the use of the MDRD equation for patients that are not between the ages of 18 and 70, are , have extremes of body size, muscle mass, or nutritional status, or are non- or non-. According to the National Kidney Foundation, irrespective of diagnosis, the stage of the disease is based on the level of kidney function: Stage Description GFR(mL/min/1.73 m(2)) 1 Kidney damage with normal or decreased GFR 90 2 Kidney damage with mild decrease in GFR 60-89 3 Moderate decrease in GFR 30-59 4 Severe decrease in GFR 15-29 5 Kidney failure <15 (or dialysis) 4 >100 to <200 pg/mL: likely compensated congestive heart failure (CHF) 200 to 400 pg/mL: likely moderate CHF >400 pg/mL: likely moderate to severe CHF 5 [facility] Severe Sepsis and Septic Shock Management Bundle Measure requires all lactic acids initially measuring >2.0 mmol/L be repeated. 6 99th percentile=0.04 ng/mL Troponin results at [facility] and [facility] are not interchangeable. 7 Please note: The following may produce a false positive D Dimer test: - Rheumatoid factor greater than 60 IU/ml - Plasma hemoglobin greater than 0.05 gm/dl - Bilirubin greater than 50 mg/dl - Lipids greater than 1000 mg/dl - FDP greater than 20 ug/ml 8 Test Performed by: [place] [address] Stage Setting Painter Apprentice: Shane Rowan II, M.D., Ph.D. 9 Test Performed by: [place] [address] Stage Setting Painter Apprentice: Shane Rowan II, M.D., Ph.D. 10 Acute inflammation: >10.00 11 REFERENCE VALUE <30.0 (Negative) Test Performed by: [place] [address] Stage Setting Painter Apprentice: Shane Rowan II, M.D., Ph.D. 12 Test Performed by: [place] [address] Stage Setting Painter Apprentice: Shane Rowan II, M.D., Ph.D. 13 Test Performed by: [place] [address] Stage Setting Painter Apprentice: Shane Rowan II, M.D., Ph.D. 14 Acute inflammation: >10.00 15 REFERENCE VALUE <30.0 (Negative) Test Performed by: [address] [address] Stage Setting Painter Apprentice: Shane Rowan II, M.D., Ph.D. Procedures Date CPT Code Description Status Comment 03/03/2018 54254 EKG Tracing & Interpretation Completed 02/21/2018 92830 ECHO Transthorasic Realtime Completed 2D W Doppler & Color Flow Hosp 01/20/2018 03796 ECHO Transthoracic, Completed Real-Time 2D With Doppler And Color Flow 01/20/2018 55489 ECHO Transthoracic, Completed Real-Time 2D With Doppler And Color Flow 01/10/2018 19133 EKG Tracing & Interpretation Completed 11/01/2017 72264 ECHO Transthorasic Realtime Completed 2D W Doppler & Color Flow Hosp 10/24/2017 44040 EKG, Interpretation Only Completed 10/19/2017 93003 EKG, Interpretation Only Completed 08/06/2016 47279 EKG Tracing & Interpretation Completed 08/03/2016 Diabetic Retinal Eye Exam Completed Document: 08/03/16 - Consult Ophthalmology - Jelani 07/27/2016 34220 ECHO Transthorasic Realtime Completed 2D W Doppler & Color Flow Hosp 06/15/2016 27211 EKG, Interpretation Only Completed 06/14/2016 61288 EKG, Interpretation Only Completed 05/21/2016 34381 EKG, Interpretation Only Completed 05/20/2016 74629 EKG, Interpretation Only Completed 05/19/2016 62864 EKG, Interpretation Only Completed 05/18/2016 28683 EKG, Interpretation Only Completed 05/17/2016 34460 ECHO Transthorasic Realtime Completed 2D W Doppler & Color Flow Hosp 05/17/2016 04618 EKG, Interpretation Only Completed 05/03/2016 17858 ECHO Transthorasic Realtime Completed 2D W Doppler & Color Flow Hosp Encounters Type Date Location Provider CPT E/M Dx Office Visit 01/10/2018 11:30a [facility] Gricelda Arango M.D. 38014 Z95.2 [facility] I38 M32.9 Z99.2 I31.9 Office Visit 11/01/2017 9:05a [facility], Yari Mabry, 12712 R07.9 Hospitalists REVERSE UNIT OPERATOR I10 N18.6 D64.9 Office Visit 10/27/2017 11:23a [facility],pc Hai Cedeno 38367 J18.9 Hospitalists MD Holger R50.9 N18.6 I10 Office Visit 10/26/2017 11:22a [facility] Hai Cedeno 96459 R50.9 Hospitalists MD Holger N18.6 M32.9 I10 Office Visit 10/25/2017 11:22a [facility] Hai Cedeno 77750 R50.9 Hospitalists MD Holger N18.6 R07.89 M32.9 Office Visit 10/24/2017 11:22a [facility] Hai Cedeno 89242 R07.89 Assoc, Hospitalists MD Holger N18.6 M32.9 I10 Office Visit 10/23/2017 11:21a [facility], Mauri Storey, 32645 N18.6 Hospitalists M.D. M32.9 I10 A41.9 Office Visit 10/22/2017 11:21a [facility], Mauri Storey, 83969 N18.6 Hospitalists M.D. M32.9 I10 A41.9 Office Visit 10/21/2017 8:17a [facility] Chelo Herring, 28001 J18.9 Infectious Diseases M.D. N18.6 Z99.2 Office Visit 10/21/2017 11:21a [facility], Mauri Storey, 65860 N18.6 Hospitalists M.D. M32.9 I10 A41.9 Office Visit 10/20/2017 11:20a [facility], Mauri Storey, 30632 M32.9 Hospitalists M.D. N18.6 I10 A41.9 Office Visit 10/20/2017 8:08a [facility] Levi Herring, 09597 J18.9 Infectious Diseases M.D. M32.14 N18.6 R21 Office Visit 10/19/2017 11:20a [facility] Assoc, Nery Mixon, 58577 J18.9 Hospitalists D.OAlem A41.9 J96.01 R74.8 N18.6 Office Visit 10/19/2017 7:00a [facility] [place] [address] G25.3 T42.6x5A N18.6 Z99.2 Office Visit 08/23/2016 10:00a [facility] Charanjit Baugh, 31922 M32.12 Of Renu Guo Z79.52 M32.19 E87.5 Z79.899 G62.9 Office Visit 08/17/2016 2:54p [facility], Gwendolyn Burns, 40060 R07.9 Hospitalists Brant M32.19 N18.6 Office Visit 08/16/2016 2:53p [facility], Petr Carlin, 90439 R07.9 Hospitalists N.P. M32.19 N18.6 I10 Office Visit 08/06/2016 8:20a [facility] Gricelda Arango M.D. 58737 M32.12 Knitted Garment Finisher [place] [facility] I44.0 E87.5 N18.6 I42.2 Office Visit 08/06/2016 10:40a [facility] Charanjit Baugh 64837 M32.12 Of Renu Guo M54.2 M32.14 Z79.52 Z79.899 Office Visit 07/27/2016 2:25p [facility] Charanjit Baugh, 22917 M32.12 Of Renu Guo M32.14 Z79.52 Office Visit 07/27/2016 1:04p [facility] Nery Mixon, 77255 M54.2 Hospitalists D.OAlem M32.12 N18.6 Office Visit 07/26/2016 1:03p [facility], Jolanta Nolan, N.P. 26582 M54.2 Hospitalists M32.12 N18.6 Office Visit 06/25/2016 11:20a [facility] Charanjit Baugh 67608 M32.14 Of Renu Guo R60.0 Z79.899 Office Visit 06/16/2016 1:29p [facility],pc Nery Mixon, 19708 K52.9 Hospitalists D.O. M32.19 N18.6 Office Visit 06/15/2016 1:28p [facility] Nery Mixon, 37267 K52.9 Hospitalists D.O. M32.19 N18.6 Office Visit 06/14/2016 1:27p [facility] Jolanta Nolan N.Misty. 47411 K52.9 Hospitalists M32.19 N18.6 Office Visit 06/04/2016 10:20a [facility] Charanjit Baugh, 00167 M32.14 Of Knitted Garment Finisher M.DAlem Z99.2 N18.6 R60.0 Z79.899 Office Visit 05/22/2016 9:23a [facility] Charanjit Baugh, 69048 M32.19 Of Renu Dominguez.Pema I44.2 N18.6 Z79.899 Office Visit 05/22/2016 12:11p [facility],pc Mauri Storey, 19198 N18.6 Hospitalists M.DAlem M32.8 I44.2 Office Visit 05/21/2016 9:23a [facility] Charanjit Buagh, 48149 M32.19 Of Renu Dominguez.DAlem I44.2 N18.6 Z79.899 Office Visit 05/21/2016 3:08p [facility] Cristóbal Clements, [address] [facility] Office Visit 05/21/2016 12:10p [facility], Mauri Storey, 04128 N18.6 Hospitalists M.DAlem I44.2 M32.8 Office Visit 05/20/2016 12:10p [facility], Gwendolyn Burns, 41495 I44.2 Hospitalists M.DAlem M32.8 N18.6 Office Visit 05/19/2016 9:21a [facility] Charanjit Baugh, 18512 M32.19 Of Knitted Garment Finisher Alberto.DAlem I44.2 N18.6 Z79.899 Office Visit 05/19/2016 1:49p [facility] Gricelda Arnago M.D. 53945 I44.2 Knitted Garment Finisher Office Visit 05/19/2016 12:09p [facility], Gwendolyn Burns, 59221 I44.2 Hospitalists Brant M32.8 N18.6 Office Visit 05/18/2016 2:59p [facility] Tito Hill, 68565 R00.1 M.DAlem Office Visit 05/18/2016 12:08p [facility], Gwendolyn Burns, 61055 I44.2 Hospitalists Brant M32.8 N18.6 Office Visit 05/18/2016 9:20a [facility] Charanjit Baugh 71749 M32.19 Of Renu Guo I44.2 N18.6 Z79.899 Office Visit 05/17/2016 12:12p [facility], Gwendolyn Burns, 12120 N18.6 Hospitalists Brant I44.2 M32.8 Office Visit 05/17/2016 9:16a [facility] Charanjit Baugh 29284 M32.19 Of Renu Guo I44.2 N18.6 Z79.899 Office Visit 05/14/2016 1:00p [facility] Charanjit Baugh 94443 M32.19 Of Renu Guo I30.9 N18.6 Z79.899 Office Visit 05/04/2016 1:39p [facility], 57707 M32.19 Assoc, Hospitalists Brant I30.9 N18.6 Office Visit 05/03/2016 7:45a [facility] Charanjit Baugh 83798 M32.14 Of Renu Guo R09.1 F17.210 Z79.899 Office Visit 05/03/2016 1:38p [facility], 46346 M32.19 Assoc, Hospitalists Brant I30.9 N18.6 Office Visit 05/03/2016 1:46p [facility] Gricelda Arango M.D. 27543 I31.9 [facility] Office Visit 05/02/2016 7:43a [facility] Services Charanjit Baugh 38269 M32.14 Of Renu Guo R09.1 F17.210 Z79.899 Office Visit 05/02/2016 1:37p [facility] 85666 M32.19 Assoc, Hospitalists N.P. N18.6 I30.9 Office Visit 05/02/2016 1:45p [facility] Gricelda Arango M.D. 76021 I31.9 [facility] Plan of Care Future Appointment(s):05/16/2018 1:30 pm - Colton Zaragoza M.D. at [facility]03/03/2018 - Fabio Bar.Misty.Z95.2 Presence of prosthetic heart valveComments:Recent echo shows EF slightly lower 45-50%Follow up:3 mo OV LSI10 Essential (primary) hypertensionNew Medication:Metoprolol Succinate ER 25 mgRecommendations:STOP Metoprolol Tartrate START Metoprolol Succinate.I97.191 Oth postproc cardiac functn disturb following oth surgeryNew Xrays:US ChestRecommendations:If area opens up please call; or if fevers chills and area gets bigger. We will get ultrasound of chest.
--- NOTE | 2018-03-05 15:22 | RAD ---
INDICATION: 2 weeks of pain at the right middle finger proximal phalanx after a fall COMPARISON: None. TECHNIQUE: 3 views of the right middle finger were obtained. FINDINGS: Depicted best on the lateral view image there is hyperdense material tracking along the flexor tendons at the palmar surface of the right middle finger. The visualized bones are intact and appropriately aligned. No definite fracture or dislocation is identified. Incidentally noted is advanced calcified atherosclerosis of the radial artery and arteries in the right hand. IMPRESSION: 1. NO ACUTE FRACTURE OR DISLOCATION OF THE RIGHT MIDDLE FINGER. 2. INCREASED DENSITY TRACKING ALONG THE EXPECTED LOCATION OF THE FLEXOR TENDONS OF THE RIGHT MIDDLE FINGER APPEAR TO BE CHRONIC.
[2018-03-05 15:53] VITALS: BP 110/70
--- NOTE | 2018-03-05 16:46 | ED ---
Upper Extremity Pain - HPI Summary HPI Summary: Patient is a 33-year-old male presenting to the ED with right finger complaint. He endorses pain to the right middle finger after injuring at 2 weeks ago while he was having a seizure. He states he did not mention it when he was in the ED, but the pain has been continuing. He states it has not been getting worse. He states he has been unable to flex or extend the finger. He is also endorsing some swelling to the finger. There is no erythema or warmth. He has never injured the area before. - History of Current Complaint Chief Complaint: EDExtremityUpper Stated Complaint: PAIN IN MIDDLE FINGER Time Seen by Provider: 03/05/18 13:41 Hx Obtained From: Patient Mechanism Of Injury: Twisted Onset/Duration: Started Weeks Ago Timing: Constant Severity Initially: Moderate Severity Currently: Moderate Pain Location: Finger Character: Aching Aggravating Factor(s): Movement Alleviating Factor(s): Rest, Ice Associated Signs & Symptoms: Positive: Swelling. Negative: Redness, Bruising Related History: Dominant Hand Right - Risk Factors Non-Orthopedic Risk Factor: Negative DVT Risk Factors: Negative Septic Arthritis Risk Factor: Negative Compartment Syndrome Risk Factors: Pain - Allergies/Home Medications Allergies/Adverse Reactions: Allergies Allergy/AdvReac Type Severity Reaction Status Date / Time hydralazine Allergy Intermediate Shortness Verified 02/28/18 14:44 of Breath prednisone Allergy Hallucinati Verified 02/28/18 14:44 ons PMH/Surg Hx/FS Hx/Imm Hx Previously Healthy: Yes Endocrine/Hematology History: Reports: Hx Systemic Lupus Erythematosus Denies: Hx Diabetes, Hx Thyroid Disease Cardiovascular History: Reports: Hx Hypertension, Hx Valvular 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 History: Reports: Hx Chronic Renal Failure, Hx Dialysis - peritoneal, on cycler at night , Hx Renal Disease, Other Problems/Disorders - Kidney cancer , unilateral nephrectomy Musculoskeletal History: Reports: Other Musculoskeletal History - Lupus: generlized pain; Bilateral Neuropathy Feet Denies: Hx Arthritis, Hx Osteoporosis Sensory History: Reports: Hx Contacts or Glasses Denies: Hx Hearing Aid Opthamlomology History: Reports: Hx Contacts or Glasses Neurological History: Reports: Other Neuro Impairments/Disorders - Nerve pain - generalized Denies: Hx Seizures, Hx Transient Ischemic Attacks (TIA) Psychiatric History: Reports: Hx Anxiety, Hx Panic Disorder - Cancer History Cancer Type, Location and Year: Kidney cancer, September 2014 in [place]. Hx Chemotherapy: Yes - For lupus. - Surgical History Surgery Procedure, Year, and Place: Nephrectomy, splenectomy, inguinal hernia repaired, multiple fistula placements, open heart- aortic valve replacement ( bovine valve) Hx Anesthesia Reactions: No - Immunization History Hx Pertussis Vaccination: No Immunizations Up to Date: Yes Infectious Disease History: No Infectious Disease History: Reports: Hx of Known/Suspected MRSA Denies: Traveled Outside the [place] in Last 30 Days - Family History Known Family History: Positive: Hypertension, Diabetes, Other - lupus - Social History Occupation: Unemployed Lives: With Family Alcohol Use: None Hx Substance Use: No Substance Use Type: Reports: None Substance Use Comment - Amount & Last Used: sister says opiods in past Hx Tobacco Use: Yes Smoking Status (MU): Former Smoker Type: Cigarettes Amount Used/How Often: 5-10 cigs per day for 15 years until quit Length of Time of Smoking/Using Tobacco: 15 years Have You Smoked in the Last Year: Yes Review of Systems Negative: Fever, Chills, Fatigue, Skin Diaphoresis Negative: Palpitations, Chest Pain Negative: Shortness Of Breath, Cough Genitourinary: Negative Positive: no symptoms reported, see HPI Positive: Arthralgia, Myalgia Skin: Negative Positive: Other - R middle finger swelling Neurological: Negative All Other Systems Reviewed And Are Negative: Yes Physical Exam Triage Information Reviewed: Yes Vital Signs On Initial Exam: Initial Vitals Temp Pulse Resp BP Pulse Ox 98.7 F 80 14 105/62 97 03/05/18 13:37 03/05/18 13:37 03/05/18 13:37 03/05/18 13:37 03/05/18 13:37 Vital Signs Reviewed: Yes Appearance: Positive: Well-Appearing, Well-Nourished Head/Face: Positive: Normal Head/Face Inspection Eyes: Positive: Normal, ZACHARY, Conjunctiva Clear Neck: Positive: Supple Respiratory/Lung Sounds: Positive: Clear to Auscultation, Breath Sounds Present Musculoskeletal: Positive: Normal, Strength/ROM Intact Neurological: Positive: Speech Normal Psychiatric: Positive: Normal, Affect/Mood Appropriate AVPU Assessment: Alert Diagnostics - Vital Signs Vital Signs Temp Pulse Resp BP Pulse Ox 03/05/18 15:52 98.6 F 76 18 110/70 97 03/05/18 13:37 98.7 F 80 14 105/62 97 - Laboratory Lab Statement: Any lab studies that have been ordered have been reviewed, and results considered in the medical decision making process. Course/Dx - Course Course Of Treatment: X-rays obtained of the right middle finger which shows no acute fracture dislocation of the right middle finger. Increased density tracking along the expected location of the flexor tendons of the right middle finger appear to be chronic. He denies any pain to the MCP joint to the volar aspect. He is endorsing pain discretely just proximal to the PIP. Denies any pain to the DIP or fingertip otherwise. I've encouraged him to follow up with orthopedics as this may be a flexor tendon injury. He declines any splints at this time. He is encouraged ibuprofen. - Diagnoses Differential Diagnosis/HQI/PQRI: Positive: Strain, Sprain Provider Diagnoses: Pain of right middle finger Discharge - Sign-Out/Discharge Documenting (check all that apply): Patient Departure - Discharge Plan Condition: Stable Disposition: HOME Referrals: Mirza Valentine DO [Primary Care Provider] - Rose Del Angel MD [Medical Doctor] - Additional Instructions: Please follow up with orthopedics - Billing Disposition and Condition Condition: STABLE Disposition: Home
== END 2018-03-05 15:52 | disposition home or self-care (01) ==
LOC: ED 13:16
DX: M79.644 Pain in right finger(s) (principal); Z87.891 Personal history of nicotine dependence; M32.9 Systemic lupus erythematosus, unspecified; I10 Essential (primary) hypertension; Z85.528 Personal history of other malignant neoplasm of kidney; Z95.4 Presence of other heart-valve replacement; X58.XXXD Exposure to other specified factors, subsequent encounter; Y92.9 Unspecified place or not applicable
CPT/HCPCS: 73140; 99281

== ENCOUNTER 2018-03-28 01:48 | Emergency (ER) | payer MEDICARE, MEDICAID ==
--- NOTE | 2018-03-28 02:05 | ED ---
Complex/Multi-Sys Presentation - HPI Summary HPI Summary: LEVEL 5 CAVEAT: HPI LIMITED DUE TO PT CONDITION, ETOH INTOXICATION A 33 y/o M presents to ED with c/o acute on chronic R heel pain. He states having chronic pain in his feet and hands since having a stroke last month. Complex PMHx includes: CVA approx one month ago, ESRD, lupus, nephrectomy, aortic valve replacement. Pt was last in [facility] on 03/05/18 for finger pain. Pt has been drinking [employer]. - History Of Current Complaint Chief Complaint: EDSubstanceAbuse Time Seen by Provider: 03/28/18 01:54 Hx Obtained From: Patient, Medical Records Onset/Duration: Still Present Timing: Constant Severity Currently: Moderate - 7 out of 10 Location: Pain At: - R heel - Allergies/Home Medications Allergies/Adverse Reactions: Allergies Allergy/AdvReac Type Severity Reaction Status Date / Time hydralazine Allergy Intermediate Shortness Verified 03/17/18 13:52 of Breath tramadol Allergy Intermediate Possible Verified 03/17/18 14:00 Seizures prednisone Allergy Hallucinati Verified 03/17/18 13:52 ons PMH/Surg Hx/FS Hx/Imm Hx Previously Healthy: No Endocrine/Hematology History: Reports: Hx Systemic Lupus Erythematosus Denies: Hx Diabetes, Hx Thyroid Disease Cardiovascular History: Reports: Hx Hypertension, Hx Valvular 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 History: Reports: Hx Chronic Renal Failure, Hx Dialysis - peritoneal, on cycler at night , Hx Renal Disease, Other Problems/Disorders - Kidney cancer , unilateral nephrectomy Musculoskeletal History: Reports: Other Musculoskeletal History - Lupus: generlized pain; Bilateral Neuropathy Feet Denies: Hx Arthritis, Hx Osteoporosis Sensory History: Reports: Hx Contacts or Glasses Opthamlomology History: Reports: Hx Contacts or Glasses Neurological History: Reports: Other Neuro Impairments/Disorders - Nerve pain - generalized Denies: Hx Seizures, Hx Transient Ischemic Attacks (TIA) Psychiatric History: Reports: Hx Anxiety, Hx Panic Disorder - Cancer History Cancer Type, Location and Year: Kidney cancer, September 2014 in [place]. Hx Chemotherapy: Yes - For lupus. - Surgical History Surgery Procedure, Year, and Place: Nephrectomy, splenectomy, inguinal hernia repaired, multiple fistula placements, open heart- aortic valve replacement ( bovine valve) Hx Anesthesia Reactions: No Infectious Disease History: No Infectious Disease History: Reports: Hx of Known/Suspected MRSA Denies: Traveled Outside the [place] in Last 30 Days - Family History Known Family History: Positive: Hypertension, Diabetes, Other - lupus - Social History Occupation: Disabled Lives: Alone Alcohol Use: Daily Hx Substance Use: No Substance Use Type: Reports: None Substance Use Comment - Amount & Last Used: sister says opiods in past Hx Tobacco Use: Yes Smoking Status (MU): Former Smoker Type: Cigarettes Amount Used/How Often: 5-10 cigs per day for 15 years until quit Length of Time of Smoking/Using Tobacco: 15 years Have You Smoked in the Last Year: Yes Review of Systems - ROS Summary Review of Systems Summary: LEVEL 5 CAVEAT: ROS LIMITED DUE TO PT CONDITION, ETOH INTOXICATION Positive: Other - pos: R heel pain All Other Systems Reviewed And Are Negative: No Physical Exam - Summary Physical Exam Summary: Appearance: Well-appearing, Well-nourished, lying in bed comfortable Skin: Warm, dry, no obvious rash Eyes: sclera anicteric, no conjunctival pallor ENT: mucous membranes moist Neck: deferred Respiratory: No signs of respiratory distress Cardiovascular: Appears well perfused, pulses are nml Abdomen: deferred Musculoskeletal: Moving all 4 extremities without obvious discomfort Neurological: Awake and alert, mentation is normal, speech is fluent and appropriate Psychiatric: affect is normal, does not appear anxious or depressed Triage Information Reviewed: Yes Vital Signs On Initial Exam: Initial Vitals Temp Pulse Resp BP Pulse Ox 99.1 F 87 15 145/96 97 03/28/18 01:50 03/28/18 01:50 03/28/18 01:50 03/28/18 01:50 03/28/18 01:50 Vital Signs Reviewed: Yes Diagnostics - Vital Signs Vital Signs Temp Pulse Resp BP Pulse Ox 03/28/18 01:50 99.1 F 87 15 145/96 97 - Laboratory Result Diagrams: 03/28/18 02:16 03/28/18 02:16 Lab Statement: Any lab studies that have been ordered have been reviewed, and results considered in the medical decision making process. - EKG 0318 Cardiac Rate: NL - 84bpm EKG Rhythm: Sinus Rhythm Summary of EKG Findings: NSR at 84 BPM, P waves, QRS complex, and T waves are within normal limits, T waves and intervals are normal, no ischemic changes. Complex Multi-Symp Course/Dx Course Of Treatment: Pt is a complex 33 y/o M with CVA last month, sz, ESRD, lupus, presents with c/o acute on chronic R heel pain. He states having chronic pain in his feet and hands since the stroke. Pt has been drinking tonight, ETOH : 233. EKG is NSR at 84 BPM, P waves, QRS complex, and T waves are within normal limits, T waves and intervals are normal, no ischemic changes. - Diagnoses Provider Diagnoses: Lupus (systemic lupus erythematosus), ESRD (end stage renal disease) on dialysis, Alcohol intoxication Discharge - Sign-Out/Discharge Documenting (check all that apply): Patient Departure - DC - Discharge Plan Condition: Improved Disposition: HOME Patient Education Materials: Chronic Pain (ED), Alcohol Intoxication (ED) Referrals: Mirza Valentine DO [Primary Care Provider] - Additional Instructions: Your chronic pain is managed by the pain clinic, so the ED will not intervene on that. - Billing Disposition and Condition Condition: IMPROVED Disposition: Home - Attestation Statements Document Initiated by Scribe: Yes Documenting Scribe: Yobany Zamudio Provider For Whom Jelena is Documenting (Include Credential): Dr. Bennie Ochoa MD Scribe Attestation: Yobany Ibrahim, scribed for Dr. Bennie Ochoa MD on 03/29/18 at 0200. Scribe Documentation Reviewed: Yes Provider Attestation: The documentation as recorded by the Yobany mcmillan accurately reflects the service I personally performed and the decisions made by me, Dr. Bennie Ochoa MD Status of Scribe Document: Viewed
[2018-03-28 02:25] LABS: ABS Basophils 0 10^3/ul (0-0.2); ABS Eosinophils 0 10^3/ul (0-0.6); ABS Lymphocytes 1.3 10^3/ul (1.0-4.8); ABS Monocytes 0.5 10^3/ul (0-0.8); ABS Neutrophils 8.1 10^3/ul (1.5-7.7); ABS Nucleated RBC 0 10^3/ul; Eosinophil % 0 %; Hematocrit 31 % (42-52); Hemoglobin 10.3 g/dl (14.0-18.0); Lymphocyte % 12.9 %; Mean Corpuscular HGB Conc 33 g/dl (31-36); Mean Corpuscular Hemoglobin 33 pg (27-31); Mean Corpuscular Volume 99 fL (80-94); Nucleated Red Blood Cells % 0; Platelet Count 152 10^3/ul (150-450); Red Blood Count 3.16 10^6/ul (4.00-5.40); Red Cell Distribution Width 18 % (10.5-15); White Blood Count 9.9 10^3/ul (3.5-10.8)
[2018-03-28 02:40] LABS: EGFR Non-African American 6.1 (>60)
--- OUTSIDE RECORDS SUMMARY | 2018-03-28 03:01 | XMS REPORT ---
:1985 External Reference #:[id number] Author Organization [facility] Address [address] [place] [address] Phone [phone] Care Team Providers Name Role Phone Mirza Valentine DO Primary Care Physician Unavailable Payers Type Date Identification Numbers Payment Provider Subscriber Medicare Primary Policy Number: [id number] Medicare Jose Enrique Puri PayID: [id number] [address] [place] [address] Medigap Part B Policy Number: [id number] Medicaid Jose Enrique Puri Group Name: 1 1 [address] PayID: [id number] [place] [address] Medigap Part B Expires: [address]: [id number] [facility] Jose Enrique Puri PayID: [id number] [address] [place] [address] Medigap Part B Expires: 2016 Policy Number: [id number] Medicaid Jose Enrique Puri Group Name: 1 1 [address] PayID: [id number] [place] [address] Problems Date Description Provider Status Onset: 08/06/2016 Systemic lupus erythematosus with Gricelda Arango M.D. Active pericarditis Onset: 08/06/2016 First degree atrioventricular block Gricleda Arango M.D. Active Onset: 08/06/2016 Hypertrophic cardiomyopathy associated Gricelda Arango M.D. Active with another disorder Onset: 01/10/2018 Heart valve replacement Gricelda Arango M.D. Active Onset: 01/10/2018 Valvular endocarditis Gricelda Imler, M.D. Active Family History Date Family Member(s) Problem(s) Comments General Hypertension General Stroke General Cancer General Rheumatoid Arthritis Father Diabetes Mother Diabetes Social History Type Date Description Comments Lives With Alone Occupation Disabled Cigarette Use Former Cigarette Smoker ETOH Use Denies alcohol use Smoking Patient is a former smoker Recreational Drug Use Denies Drug Use Daily Caffeine Consumes on average 2 cups of regular coffee per day Exercise Type/Frequency Exercises sporadically Allergies, Adverse Reactions, Alerts Date Description Reaction Status Severity Comments 05/14/2016 Hydralazine active fatigued, weak, near syncope 05/14/2016 Prednisone active suicidal 03/13/2018 Tramadol active seizures Medications Medication Date Status Form Strength Qnty SIG Indications Ordering Provider Metoprolol 03/03 Active Tablets 25mg 90tab 1 by mouth I10 Marybeth S. Succinate ER 24HR s every day Jeremy Thibodeaux Gabapentin 08/24 Active Capsules 100mg 60cap 200mg po s three Amauri, times a M.D. day Plaquenil 05/14 Active Tablets 200mg 180ta Please bs take 2 by Amauri, mouth M.D. daily ongoing Renvela Active Pills 3 pills Unknown with meals Nicotine Polacrilex Active Gum 2mg Stuppel, /0000 Mirza, DO Zyrtec Allergy Active Tablets 10mg 1 by mouth Unknown every day or as needed Omeprazole Active Capsules 20mg [address] every day Methylphenidate HCL Active Tablets 10mg 1 tablet Stuppel, /0000 po as Mirza, DO needed Tyenol Extra Active 500mg 4 tablet Unknown Strenght po daily Zofran Active as needed Unknown Mycophenolate Active Tablets 360mg Take [address] Tablets By Mouth Two Times Daily Please Titrate as Discussed Calcitriol Active Capsules 1 tablet Unknown /0000 PO daily Cetirizine HCL Active Tablets 10mg 1 by mouth Unknown every day Dicyclomine HCL Active Capsules 10mg prn Unknown Loperamide HCL Active Tablets 2mg prn Unknown Buprenorphine Active Patches 7.5mcg/HR apply 2 Unknown Weekly patch per week Methylprednisolone Active Tablets 8mg 1 PO daily Unknown Lyrica 08/23 Hx Capsules 50mg 30cap take one s capsule/ta Amauri, - blet daily M.D. 08/24 by mouth Tramadol HCL 07/23 Hx Tablets 50mg 20tab 1 tablet M32.14 s by mouth Amauri, - once daily M.D. 03/12 as needed, pain I30.9 Colchicine 07/23/2016 - Hx Capsules 0.6mg 30caps 1 by mouth Charanjit 01/09/2018 every day Brant Baugh Mycophenolate Mofetil 05/14/2016 - Hx Tablets 500mg 120tabs take two 01/09/2018 tablets by Amauri mouth M.DAlem twice a day Tums - [...] at bedtime M.DAlem as needed for insomnia Sertraline HCL - Hx Tablets 50mg 1 and 1/2 Stuppel, 03/12/2018 tablet po Mirza, DO daily Flonase Allergy - Hx Suspension 50mcg/A spray 1 Unknown Relief 01/09/2018 ct spray in each nostril twice daily Prednisone - Hx taper dose Unknown 08/06/2016 as directed Lyrica - Hx as needed Unknown 08/23/2016 Levofloxacin - Hx Tablets one by Unknown 01/09/2018 mouth daily for 10 days Amoxicillin/Clavulana - Hx Tablets 500-125 Unknown te Potassium 01/09/2018 mg Restoril - Hx Capsules as needed Unknown 01/09/2018 for sleep Trazodone HCL - Hx Tablets 50mg 1 tablet Unknown 03/13/2018 at bedtime as needed Metoprolol Tartrate - Hx Tablets 25mg Take 1 Unknown 03/03/2018 Tablet By Mouth Two Times Daily ( taking 1 tablet po Daily) Cefpodoxime Proxetil - Hx Tablets 200mg 1 by mouth Unknown 03/12/2018 twice daily until 03/04 Vital Signs Date Vital Result Comment 03/13/2018 Height 68 inches 5'8" Weight 154.00 lb Heart Rate 60 /min BP Systolic 150 mmHg BP Diastolic 70 mmHg Body Temperature 97.6 F Pain Level 7 BMI (Body Mass Index) 23.4 kg/m2 03/03/2018 Height 68 inches 5'8" Weight 155.00 [...] Color Yellow Urine Appearance Clear Urine Specific [place] 1.011 1.010-1.030 Urine pH 8.0 5-9 Urine [...] [address]: Nery Mixon DO Acct: [id number] Unit: [id number] AGE: 31 Location: [place] [address] Re07/26/16 SEX: M Status: ADM Moi SPEC: [id number] BESSY: 07/26/16-161 [facility] DR: Shane Aranda MD REQ: [id number] RECD: 07/26/16 STATUS: JAVI ASH DR: [facility] Diego Doshi III, MD _ SOURCE: URINE SPDESC: ORDERED: Urine Culture Procedure Result Reported Site Urine Culture Final 07/28/16- 814 ML Organism 1 ENTEROCOCCUS FAECALIS [place] Count 25-50,000 (Moderate) CFU/ML 1. ENTEROCOCCUS FAECALIS [...] These antibiotics are not available in the [facility] Formulary Contact the Microbiology Department for any additional antibiotic reporting. * ML - MAIN LAB ([facility]) . END OF REPORT * ML=Testing performed at Main Lab DEPARTMENT OF PATHOLOGY, [address] [place] [address] Jose Steiner M.D. Director [facility] # [id number] 2 Acute inflammation: >10.00 3 Because ethnic [...] pg/mL: likely moderate to severe CHF 5 [facility] Severe Sepsis and Septic Shock Management Bundle Measure requires all lactic acids initially measuring >2.0 mmol/L be repeated. 6 99th percentile=0.04 ng/mL Troponin results at [facility] and [facility] are not interchangeable. 7 Please note: The following may produce a false positive D Dimer test: - Rheumatoid factor greater than 60 IU/ml - Plasma hemoglobin greater than 0.05 gm/dl - Bilirubin greater than 50 mg/dl - Lipids greater than 1000 mg/dl - FDP greater than 20 ug/ml 8 Test Performed by: [place] [address] Industrial Hygiene Technician: Shane Rowan II, M.D., Ph.D. 9 Test Performed by: [place] [address] Industrial Hygiene Technician: Shane Rowan II, M.D., Ph.D. 10 Acute inflammation: >10.00 11 REFERENCE VALUE <30.0 (Negative) Test Performed by: [address] [address] Industrial Hygiene Technician: Shane Rowan II, M.D., Ph.D. 12 Test Performed by: [place] [address] Industrial Hygiene Technician: Shane Rowan II, M.D., Ph.D. 13 Test Performed by: [place] [address] Industrial Hygiene Technician: Shane Rowan II, M.D., Ph.D. 14 Acute inflammation: >10.00 15 REFERENCE VALUE <30.0 (Negative) Test Performed by: [place] [address] Industrial Hygiene Technician: Shane Rowan II, M.D., Ph.D. Procedures Date CPT Code Description Status Comment 03/13/2018 18177 Inject Tendon Sheath Or Completed Ligament Aponeurosis Eg Plantar Fascia 03/03/2018 22537 EKG Tracing & Interpretation Completed 02/21/2018 44960 ECHO Transthorasic Realtime Completed 2D W Doppler & Color Flow Hosp 01/20/2018 01921 ECHO Transthoracic, Completed Real-Time 2D With Doppler And Color Flow 01/20/2018 60580 ECHO Transthoracic, Completed Real-Time 2D With Doppler And Color Flow 01/10/2018 25362 EKG Tracing & Interpretation Completed 11/01/2017 52226 ECHO Transthorasic Realtime Completed 2D W Doppler & Color Flow Hosp 10/24/2017 46741 EKG, Interpretation Only Completed 10/19/2017 76060 EKG, Interpretation Only Completed 08/06/2016 99887 EKG Tracing & Interpretation Completed 08/03/2016 Diabetic Retinal Eye Exam Completed Document: 08/03/16 - Consult Ophthalmology - [place] 07/27/2016 67926 ECHO Transthorasic Realtime Completed 2D W Doppler & Color Flow Hosp 06/15/2016 10866 EKG, Interpretation Only Completed 06/14/2016 42659 EKG, Interpretation Only Completed 05/21/2016 20602 EKG, Interpretation Only Completed 05/20/2016 35343 EKG, Interpretation Only Completed 05/19/2016 78665 EKG, Interpretation Only Completed 05/18/2016 65605 EKG, Interpretation Only Completed 05/17/2016 26344 ECHO Transthorasic Realtime Completed 2D W Doppler & Color Flow Hosp 05/17/2016 36000 EKG, Interpretation Only Completed 05/03/2016 11688 ECHO Transthorasic Realtime Completed 2D W Doppler & Color Flow Hosp Encounters Type Date Location Provider CPT E/M Dx Office Visit 03/03/2018 [facility] Marybeth Thibodeaux N.P. 96598 Z95.2 2:00p Review Trainer I12.0 I97.191 N18.6 Office Visit 01/10/2018 11:30a [facility] Gricelda Arango M.D. 83958 Z95.2 Review Trainer I38 M32.9 Z99.2 I31.9 Office Visit 11/01/2017 9:05a [facility], Yari Mabry, 37074 R07.9 Hospitalists WAREHOUSE SUPERVISOR 3RD SHIFT I10 N18.6 D64.9 Office Visit 10/27/2017 11:23a [facility], Hai Cedeno 60916 J18.9 Hospitalists MD Holger R50.9 N18.6 I10 Office Visit 10/26/2017 11:22a [facility],tab Cedeno 12550 R50.9 Hospitalists MD Holger N18.6 M32.9 I10 Office Visit 10/25/2017 11:22a [facility], Hai Cedeno 93799 R50.9 Hospitalists MD Holger N18.6 R07.89 M32.9 Office Visit 10/24/2017 11:22a [facility] Hai Cedeno 33787 R07.89 Assnoemy, Zina Wren MD N18.6 M32.9 I10 Office Visit 10/23/2017 11:21a [facility], Mauri Storey 27055 N18.6 Hospitalaraceli Guo M32.9 I10 A41.9 Office Visit 10/22/2017 11:21a [facility], Mauri Storey 71324 N18.6 Hospitalists M.D. M32.9 I10 A41.9 Office Visit 10/21/2017 8:17a [facility] Levi Herring, 58138 J18.9 Infectious Diseases M.D. N18.6 Z99.2 Office Visit 10/21/2017 11:21a [facility], Mauri Karmarisol, 27429 N18.6 Hospitalists M.D. M32.9 I10 A41.9 Office Visit 10/20/2017 11:20a [facility], Mauri Yaronmarisol, 69564 M32.9 Hospitalists M.D. N18.6 I10 A41.9 Office Visit 10/20/2017 8:08a [facility] Levi Herring, 06459 J18.9 Infectious Diseases M.DAlem M32.14 N18.6 R21 Office Visit 10/19/2017 11:20a [facility], Nery Mixon, 76735 J18.9 Hospitalists D.O. A41.9 J96.01 R74.8 N18.6 Office Visit 10/19/2017 7:00a [facility] [address] G25.3 T42.6x5A N18.6 Z99.2 Office Visit 08/23/2016 10:00a [facility] Charanjit Baugh, 82752 M32.12 Of Renu Guo Z79.52 M32.19 E87.5 Z79.899 G62.9 Office Visit 08/17/2016 2:54p [facility], Gwendolyn Burns, 05790 R07.9 Hospitalists M.Pema M32.19 N18.6 Office Visit 08/16/2016 2:53p [facility], Petr Carlin, 49462 R07.9 Hospitalists N.P. M32.19 N18.6 I10 Office Visit 08/06/2016 8:20a [facility] Gricelda Arango M.D. 04074 M32.12 Review Trainer AT [facility] I44.0 E87.5 N18.6 I42.2 Office Visit 08/06/2016 10:40a [facility] Charanjit Baugh 25878 M32.12 Of Renu Dominguez.DAlem M54.2 M32.14 Z79.52 Z79.899 Office Visit 07/27/2016 2:25p [facility] Charanjit Baugh 72213 M32.12 Of Review Trainer M.D. M32.14 Z79.52 Office Visit 07/27/2016 1:04p [facility], Nery Mixon, 06935 M54.2 Hospitalists D.O. M32.12 N18.6 Office Visit 07/26/2016 1:03p [facility], Jolanta Nolan, N.P. 27209 M54.2 Hospitalists M32.12 N18.6 Office Visit 06/25/2016 11:20a [facility] Charanjit Baugh 00265 M32.14 Of Renu Guo R60.0 Z79.899 Office Visit 06/16/2016 1:29p [facility], Nery Mixon, 63045 K52.9 Hospitalists D.O. M32.19 N18.6 Office Visit 06/15/2016 1:28p [facility], Nery Mixon, 43053 K52.9 Hospitalists D.O. M32.19 N18.6 Office Visit 06/14/2016 1:27p [facility], Jolanta Nolan, N.P. 96047 K52.9 Hospitalists M32.19 N18.6 Office Visit 06/04/2016 10:20a [facility] Charanjit Baugh 01448 M32.14 Of Renu Dominguez.Abiel. Z99.2 N18.6 R60.0 Z79.899 Office Visit 05/22/2016 9:23a [facility] Charanjit Baugh 20202 M32.19 Of Renu Dominguez.D. I44.2 N18.6 Z79.899 Office Visit 05/22/2016 12:11p [facility], Mauri Storey, 70083 N18.6 Hospitalists Brant M32.8 I44.2 Office Visit 05/21/2016 9:23a [facility] Charanjit Baugh 57742 M32.19 Of Renu Dominguez.Pema I44.2 N18.6 Z79.899 Office Visit 05/21/2016 3:08p [facility] Cristóbal Clements, 25308 I44.2 DO [facility] Office Visit 05/21/2016 12:10p [facility], Mauri Storey, 11064 N18.6 Hospitalists M.D. I44.2 M32.8 Office Visit 05/20/2016 12:10p [facility], Gwendolyn Burns, 77379 I44.2 Hospitalists M.D. M32.8 N18.6 Office Visit 05/19/2016 9:21a [facility] Charanjit Baugh 46936 M32.19 Of [facility] M.D. I44.2 N18.6 Z79.899 Office Visit 05/19/2016 1:49p [facility] Gricelda Arango M.D. 47831 I44.2 [facility] Office Visit 05/19/2016 12:09p [facility], Gwendolyn Burns, 21142 I44.2 Hospitalists M.D. M32.8 N18.6 Office Visit 05/18/2016 2:59p [facility] Tito Hill, 54219 R00.1 M.DAlem Office Visit 05/18/2016 12:08p [facility], Gwendolyn Burns, 30118 I44.2 Hospitalists M.D. M32.8 N18.6 Office Visit 05/18/2016 9:20a [facility] Charanjit Baugh 00050 M32.19 Of [facility] M.D. I44.2 N18.6 Z79.899 Office Visit 05/17/2016 12:12p [facility], Gwendolyn Burns, 23866 N18.6 Hospitalists M.D. I44.2 M32.8 Office Visit 05/17/2016 9:16a [facility] Charanjit Baugh 24419 M32.19 Of [facility] M.D. I44.2 N18.6 Z79.899 Office Visit 05/14/2016 1:00p [facility] Charanjit Baugh 07338 M32.19 Of [facility] M.D. I30.9 N18.6 Z79.899 Office Visit 05/04/2016 1:39p [facility], 67873 M32.19 Assoc, Hospitalists Brant I30.9 N18.6 Office Visit 05/03/2016 7:45a [facility] Charanjit Baugh, 09824 M32.14 Of [facility] Brant R09.1 F17.210 Z79.899 Office Visit 05/03/2016 1:38p [facility], 77061 M32.19 Assoc, Hospitalists Brant I30.9 N18.6 Office Visit 05/03/2016 1:46p [facility] Gricelda Arango M.D. 17644 I31.9 [facility] Office Visit 05/02/2016 7:43a [facility] Services Charanjit Baugh, 53642 M32.14 Of [facility] Brant R09.1 F17.210 Z79.899 Office Visit 05/02/2016 1:37p [facility], 89603 M32.19 Assoc, Hospitalists N.PAlem N18.6 I30.9 Office Visit 05/02/2016 1:45p [facility] Gricelda Arango M.D. 99625 I31.9 [facility] Plan of Care Future Appointment(s):05/16/2018 1:30 pm - Colton Zaragoza M.D. at [facility]03/13/2018 - Rose Del Angel M.D.M65.331 Trigger finger, right middle fingerFollow up:Follow up: As needed
[2018-03-28 07:49] VITALS: BP 132/78
== END 2018-03-28 07:48 | disposition home or self-care (01) ==
LOC: ED 01:48
DX: M32.9 Systemic lupus erythematosus, unspecified (principal); N18.6 End stage renal disease; Z99.2 Dependence on renal dialysis; F10.129 Alcohol abuse with intoxication, unspecified; Z87.891 Personal history of nicotine dependence; Z88.8 Allergy status to other drugs, medicaments and biological substances; Z88.6 Allergy status to analgesic agent; Z88.1 Allergy status to other antibiotic agents; Z86.73 Personal history of transient ischemic attack (TIA), and cerebral infarction without residual deficits
CPT/HCPCS: 36415; 80053; 80320; 85025; 93005; 99283; G0480

== ENCOUNTER 2018-06-02 20:30 | Emergency (ER) | payer MEDICARE, MEDICAID ==
--- OUTSIDE RECORDS SUMMARY | 2018-06-02 20:54 | XMS REPORT | Continuity of Care Document ---
:1985 External Reference #:[id number] Author Name Chastity Bragg Care Team Providers Name Role Phone Mirza Valentine DO Primary Care Physician Unavailable Payers Type Date Identification Numbers Payment Provider Subscriber Policy Number: [id number] Medicare Jose Enrique Puri PayID: [id number] [place] [address] Policy Number: [id number] Medicaid Jose Enrique Puri Group Name: 1 1 [address] PayID: [id number] [place] [address] Expires: 2018 Policy Number: [id number] Medicare Jose Enrique Puri PayID: [id number] [address] [place] [address] Expires: 2016 Policy Number: [id number] [facility] Jose Enrique Puri PayID: [id number] [address] [place] [address] Expires: 2016 Policy Number: [id number] Medicaid Jose Enrique Puri Group Name: 1 1 [address] PayID: [id number] [place] [address] Advance Directives Description No Information Available Problems Date Description Provider Status Onset: 08/06/2016 Systemic lupus erythematosus with Gricelda Arango M.D. Active pericarditis Onset: 08/06/2016 First degree atrioventricular block Gricelda Arango M.D. Active Onset: 08/06/2016 Hypertrophic cardiomyopathy associated Gricelda Arango M.D. Active with another disorder Onset: 01/10/2018 Heart valve replacement Gricelda Arango M.D. Active Onset: 01/10/2018 Valvular endocarditis Gricelda Arango M.D. Active Family History Date Family Member(s) Problem(s) Comments General Hypertension General Stroke General Cancer General Rheumatoid Arthritis Father Diabetes Mother Diabetes Social History Type Date Description Comments Sex Unknown Lives With Alone Occupation Disabled Tobacco Use Start: Unknown End: Former Cigarette Smoker Unknown ETOH Use Denies alcohol use Tobacco Use Start: Unknown End: Patient is a former smoker Unknown Recreational Drug Use Denies Drug Use Smoking Status Reviewed: 05/25/18 Patient is a former smoker Exercise Type/Frequency Exercises sporadically Allergies, Adverse Reactions, Alerts Date Description Reaction Status Severity Comments 05/14/2016 Hydralazine Active fatigued, weak, near syncope 05/14/2016 Prednisone Active suicidal 03/13/2018 Tramadol Active seizures Medications Medication Date Status Form Strength Qnty SIG Indications Ordering Provider Aspirin 81 Low Dose 04/11 Active Chewtabs 81mg 90uni 1 by mouth Marybeth S. /2017 ts every day Carlos Eduardo, N.P. Metoprolol 03/03 Active Tablets 25mg 90tab 1 by mouth I10 Marybeth S. Succinate ER ER 24HR s every day Carlos Eduardo, N.P. Plaquenil 05/14 Active Tablets 200mg 180ta Please bs take 2 by Amauri mouth M.DAlem daily ongoing Renvela Active Pills 3 pills Unknown /0000 with meals Nicotine Polacrilex Active Gum 2mg Stuppel, / Mirza, DO Zyrtec Allergy Active Tablets 10mg 1 by mouth Unknown /0000 every day or as needed Omeprazole Active Capsules 20mg 1 by mouth Unknown / DR every day Methylphenidate HCL Active Tablets 10mg 1 tablet Stuppel, po as Mirza, DO needed Tyenol Extra Active 500mg 4 tablet Unknown Strenght /0000 po daily prn Zofran Active as needed Unknown /0000 Mycophenolate Active Tablets 360mg Take [address] Tablets By Mouth Two Times Daily Please Titrate as Discussed Calcitriol Active Capsules 1 tablet Unknown /0000 PO daily Cetirizine HCL Active Tablets 10mg 1 by mouth Unknown /0000 every day Dicyclomine HCL Active Capsules 10mg prn Unknown /0000 Buprenorphine Active Patches 21mg apply 1 Unknown /0000 Weekly patch per week Methylprednisolone Active Tablets 8mg 3 PO daily Unknown Gabapentin Active Capsules 400mg take one capsule by mouth 3 times a day Retuxan Active infusion Unknown clinic once a week for 4 weeks Gabapentin 04/11 Hx Capsules 300mg 270ca 1 by mouth Marybeth . ps three Foster, - times a N.P. Gabapentin 08/24 Hx Capsules 100mg 60cap 200mg po s three Amauri, - times a M.D. Lyrica 08/23 Hx Capsules 50mg 30cap take [...] 500mg 120tabs take two 01/09/2018 tablets by luca Baugh.Pema twice a day Tums - Hx Chewtabs [...] Charanjit 08/23/2016 by mouth Amauri, at bedtime M.D. as needed for insomnia Sertraline HCL - [...] Daily ( taking 1 tablet po Daily) Loperamide HCL - Hx Tablets 2mg prn Unknown 05/15/2018 Cefpodoxime Proxetil - Hx Tablets 200mg 1 by mouth Unknown 03/12/2018 twice daily until 03/04 Medications Administered in Office Medication Date Status Form Strength Qnty SIG Indications Ordering Provider Depomedrol Administered Injection Rose 40MG Natasha Del Angel M.D. Immunizations Description No Information Available Vital Signs Date Vital Result Comment 05/25/2018 2:48pm Height 68 inches 5'8" Weight 145.00 lb Heart Rate 80 /min BP Systolic 120 mmHg BP Diastolic 78 mmHg Body Temperature 98.5 F Pain Level 0 BMI (Body Mass Index) 22.0 kg/m2 05/16/2018 1:23pm Height 68 inches 5'8" Weight 145.00 lb Heart Rate 88 /min BP Systolic Sitting 114 mmHg BP Diastolic Sitting 80 mmHg Respiratory Rate 14 /min BMI (Body Mass Index) 22.0 kg/m2 04/11/2018 2:46pm Height 68 inches 5'8" Weight 154.00 lb Heart Rate 80 /min BP Systolic Sitting 120 mmHg rue reg cuff BP Diastolic Sitting 80 mmHg rue reg cuff BP Systolic Standing 124 mmHg rue reg cuff BP Diastolic Standing 80 mmHg rue reg cuff BMI (Body Mass Index) 23.4 kg/m2 Ejection Fraction 45-50% 03/13/2018 10:49am Height 68 inches 5'8" Weight 154.00 lb Heart Rate 60 /min BP Systolic 150 mmHg BP Diastolic 70 mmHg Body Temperature 97.6 F Pain Level 7 BMI (Body Mass Index) 23.4 kg/m2 03/03/2018 1:32pm Height 68 inches 5'8" Weight 155.00 lb with shoes Heart Rate 88 /min BP Systolic Sitting 128 mmHg Rue reg cuff BP Diastolic Sitting 80 mmHg Rue reg cuff BP Systolic Standing 124 mmHg Rue reg cuff BP Diastolic Standing 80 mmHg Rue reg cuff Respiratory Rate 16 /min BMI (Body Mass Index) 23.6 kg/m2 01/10/2018 11:34am Height 68 inches 5'8" Weight 165.00 lb with shoes Heart Rate 74 /min BP Systolic Sitting 140 mmHg Rue reg cuff BP Diastolic Sitting 90 mmHg Rue reg cuff BP Systolic Standing 136 mmHg Rue reg cuff BP Diastolic Standing 78 mmHg Rue reg cuff Respiratory Rate 16 /min BMI (Body Mass Index) 25.1 kg/m2 08/23/2016 9:58am Height 68 inches 5'8" Weight 176.00 lb Heart Rate 91 /min BP Systolic Sitting 150 mmHg BP Diastolic Sitting 89 mmHg Body Temperature 97.8 F Pain Level 2 BMI (Body Mass Index) 26.8 kg/m2 08/06/2016 10:41am Height 68 inches 5'8" Weight 175.00 lb Heart Rate 102 /min BP Systolic Sitting 150 mmHg BP Diastolic Sitting 93 mmHg Respiratory Rate 14 /min Body Temperature 98.2 F Pain Level 1 BMI (Body Mass Index) 26.6 kg/m2 08/06/2016 8:09am Height 68 inches 5'8" Weight 178.00 lb w/ shoes Heart Rate 104 /min reg BP Systolic Sitting 130 mmHg Rue, reg cuff BP Diastolic Sitting 70 mmHg Rue, reg cuff BP Systolic Standing 140 mmHg Rue BP Diastolic Standing 80 mmHg Rue Respiratory Rate 16 /min BMI (Body Mass Index) 27.1 kg/m2 Ejection Fraction 55-60% as of 07/27/16 echo 06/25/2016 11:41am Height 68 inches 5'8" Weight 169.00 lb Heart Rate 92 /min BP Systolic Sitting 140 mmHg BP Diastolic Sitting 90 mmHg Body Temperature 98.2 F Pain Level 0 BMI (Body Mass Index) 25.7 kg/m2 06/04/2016 10:32am Height 68 inches 5'8" Weight 179.00 lb Heart Rate 88 /min BP Systolic Sitting 140 mmHg BP Diastolic Sitting 80 mmHg Body Temperature 98.3 F Pain Level 0 BMI (Body Mass Index) 27.2 kg/m2 05/14/2016 1:00pm Height 68 inches 5'8" Weight 174.00 lb Heart Rate 48 /min BP Systolic Sitting 60 mmHg BP Diastolic Sitting 40 mmHg BP Systolic Recheck 90 mmHg BP Diastolic Recheck 60 mmHg Respiratory Rate 14 /min Body Temperature 98.5 F Pain Level 4 BMI (Body Mass Index) 26.5 kg/m2 Results Test Date Facility Test Result H/L Range Note Vitamin B12 And 05/18/2018 [facility] Vitamin B12 868 pg/mL N 180-9[address] [place] [address] [phone] Folic Acid (Folate) 9.75 ng/mL >3.99 Vitamin B6 05/18/2018 [facility] Pyridoxal 4 g/L Abnormal 5- [address] [place] [address] [phone] Pyridoxic Acid 84 g/L Abnormal 3-30 3 Laboratory 05/18/2018 [facility] TSH (Thyroid 1.45 N 0.34- 5.[address] Stim Horm) mcIU/[place] [address] [phone] Laboratory 01/10/2018 [facility] Erythrocyte Sed 120 mm/Hr High 0-14 test finding [address] [place] [address] [phone] C Reactive Protein 65.24 mg/L High <8.01 Urine Culture And 07/26/2016 [facility] Urine Culture SEE RESULT [address] [place] [address] [phone] Laboratory test 07/26/2016 [facility] Magnesium 2.8 mg/dL High 1.9-[address] [place] [address] [phone] Lipase 424 U/L High 11.0-82.0 Creatine Kinase(CK) 62 U/L N 10-223 C Reactive Protein 38.09 mg/L High < 5.00 5 TSH (Thyroid Stim Horm) 1.00 mcIU/mL N 0.34-5.60 Comp Metabolic Panel 07/26/2016 [facility] Sodium 132 mmol/L Low 133-[address] [place] [address] [phone] Potassium 5.1 mmol/L High 3.5-5.0 Chloride 91 mmol/L Low 101-111 Co2 Carbon Dioxide 26 mmol/L N 22-32 Anion Gap 15 mmol/L High 2-11 Glucose 95 mg/dL N 70-100 Blood Urea Nitrogen 65 mg/dL High 6-24 Creatinine 12.67 mg/dL High 0.67-1.17 BUN/Creatinine Ratio 5.1 Low 8-20 Calcium 9.7 mg/dL N 8.6-10.3 Total Protein 7.3 g/dL N 6.4-8.9 Albumin 4.5 g/dL N 3.2-5.2 Globulin 2.8 g/dL N 2-4 Albumin/Globulin Ratio 1.6 N 1-3 Total Bilirubin 0.30 mg/dL N 0.2-1.0 Alkaline Phosphatase 46 U/L N 34-104 Alt 11 U/L N 7-52 Ast 6 U/L Low 13-39 Egfr Non- 4.6 N >60 Egfr 5.9 N >60 6 CKMB 07/26/2016 [facility] CKMB ng/mL 1.3 ng/mL N 0.6-6.[address] [place] [address] [phone] Laboratory test 07/26/2016 [facility] B-Type 56 pg/mL N [address] [place] [address] Peptide BNP [phone] Lactic Acid 0.7 mmol/L N 0.5-2.0 8 Troponin-I (TnI) 0.01 ng/mL N <0.04 9 CBC Auto 07/26/2016 [facility] White Blood 13.0 10^3/uL High 3.5-10.[address] [place] [address] [phone] Red Blood Count 3.76 10^6/uL Low 4.0-5.4 Hemoglobin 12.2 g/dL Low 14.0-18.0 Hematocrit 38 % Low 42-52 Mean Corpuscular Volume 101 fL High 80-94 Mean Corpuscular Hemoglobin 33 pg High 27-31 Mean Corpuscular HGB Conc 32 g/dL N 31-36 Red Cell Distribution Width 17 % High 10.5-15 Platelet Count 245 10^3/uL N 150-450 Mean Platelet Volume 10 um3 N 7.4-10.4 Abs Neutrophils 10.7 10^3/uL High 1.5-7.7 Abs Lymphocytes 1.4 10^3/uL N 1.0-4.8 Abs Monocytes 0.9 10^3/uL High 0-0.8 Abs Eosinophils 0 10^3/uL N 0-0.6 Abs Basophils 0.1 10^3/uL N 0-0.2 Abs Nucleated RBC 0 10^3/uL N Granulocyte % 82.0 % N 38-83 Lymphocyte % 10.8 % Low 25-47 Monocyte % 6.6 % N 1-9 Eosinophil % 0.1 % N 0-6 Basophil % 0.5 % N 0-2 Nucleated Red Blood Cells % 0 N Laboratory test 07/26/2016 [facility] Partial 27.2 seconds N 26.0-36.[address] [place] [address] PTT [phone] D Dimer Quantitative < 200 ng/mL N Less Than 230 10 Inr/Protime 07/26/2016 [facility] Inr 0.81 Low 0.89-1.[address] [place] [address] [phone] Urinalysis Profile 07/26/2016 [facility] Urine Color Yellow N [address] [place] [address] [phone] Urine Appearance Clear N Urine Specific Huslia 1.011 N 1.010-1.030 Urine pH 8.0 N 5-9 Urine Urobilinogen Negative N Negative Urine Ketones Negative N Negative Urine Protein 2+(100 mg/dL) Abnormal Negative Urine Leukocytes Negative N Negative Urine Blood Negative N Negative Urine Nitrite Negative N Negative Urine Bilirubin Negative N Negative Urine Glucose 2+(150 mg/dL) Abnormal Negative Urine White Blood Cell Trace(0-5/hpf) N Absent Urine Red Blood Cell Trace(0-2/hpf) N Absent Urine Bacteria 1+ Abnormal Absent Laboratory 06/25/2016 [facility] Complement C3 56 mg/dL Abnormal 75 - 11 test finding [address] [place] [address] [phone] Complement C4 17 mg/dL N 14 - 40 12 CBC Auto 06/25/2016 [facility] White Blood 13.3 10^3/uL High 3.5-10.[address] [place] [address] [phone] Red Blood Count 3.56 10^6/uL Low 4.0-5.4 Hemoglobin 11.7 g/dL Low 14.0-18.0 Hematocrit 37 % Low 42-52 Mean Corpuscular Volume 104 fL High 80-94 Mean Corpuscular Hemoglobin 33 pg High 27-31 Mean Corpuscular HGB Conc 32 g/dL N 31-36 Red Cell Distribution Width 20 % High 10.5-15 Platelet Count 295 10^3/uL N 150-450 Mean Platelet Volume 9 um3 N 7.4-10.4 Abs Neutrophils 12.2 10^3/uL High 1.5-7.7 Abs Lymphocytes 0.7 10^3/uL Low 1.0-4.8 Abs Monocytes 0.3 10^3/uL N 0-0.8 Abs Eosinophils 0 10^3/uL N 0-0.6 Abs Basophils 0.1 10^3/uL N 0-0.2 Abs Nucleated RBC 0 10^3/uL N Granulocyte % 92.0 % High 38-83 Lymphocyte % 5.2 % Low 25-47 Monocyte % 2.2 % N 1-9 Eosinophil % 0 % N 0-6 Basophil % 0.6 % N 0-2 Nucleated Red Blood Cells % 0 N Laboratory test 06/25/2016 [facility] C Reactive 3.95 mg/L N < 5.00 [address] [place] [address] [phone] Anti Double Stranded Dna AB <12.3 IU/mL N 14 Laboratory 06/04/2016 [facility] Complement C3 74 mg/dL Abnormal 75 - 15 test finding [address] [place] [address] [phone] Complement C4 15 mg/dL N 14 - 40 16 C Reactive Protein 20.16 mg/L High < 5.00 17 Anti Double Stranded Dna AB 19.7 IU/mL N 18 1 Normal Range 180 to 914 Indeterminate Range 145 to 180 Deficient Range <145 2 ADDITIONAL INFORMATION This test was developed and its performance characteristics determined by [facility] in a manner consistent with CLIA requirements. This test has not been cleared or approved by the U.S. Food and Drug Administration. 3 ADDITIONAL INFORMATION This test was developed and its performance characteristics determined by [facility] in a manner consistent with CLIA requirements. This test has not been cleared or approved by the U.S. Food and Drug Administration. Test Performed by: [facility] [address] [place] [address] 4 SEE RESULT BELOW Name: JOSE ENRIQUE PURI : [address]: Nery Mixon DO Acct: [id number] Unit: [id number] AGE: 31 Location: [place] [address] Re07/26/16 SEX: M Status: ADM Moi SPEC: [id number] BESSY: 07/26/[address]: Shane Aranda MD REQ: [id number] RECD: 07/26/16 STATUS: JAVI ASH DR: [facility] Diego Doshi III, MD _ SOURCE: URINE SPDESC: ORDERED: Urine Culture Procedure Result Reported Site Urine Culture Final 07/28/16- 0815 ML Organism 1 ENTEROCOCCUS FAECALIS [place] Count 25-50,000 (Moderate) CFU/ML 1. ENTEROCOCCUS FAECALIS [...] These antibiotics are not available in the [facility] Formulary Contact the Microbiology Department for any additional antibiotic reporting. * ML - MAIN LAB ([facility]) . END OF REPORT * ML=Testing performed at Main Lab DEPARTMENT OF PATHOLOGY, [address] [place] [address] Jose Steiner M.D. Director [facility] # [id number] 5 Acute inflammation: >10.00 6 Because ethnic data is not always readily [...] 15-29 5 Kidney failure <15 (or dialysis) 7 >100 to <200 pg/mL: likely compensated congestive heart failure (CHF) 200 to 400 pg/mL: likely moderate CHF >400 pg/mL: likely moderate to severe CHF 8 [facility] Severe Sepsis and Septic Shock Management Bundle Measure requires all lactic acids initially measuring >2.0 mmol/L be repeated. 9 99th percentile=0.04 ng/mL Troponin results at [facility] and [facility] are not interchangeable. 10 Please note: The following may produce a false positive D Dimer test: - Rheumatoid factor greater than 60 IU/ml - Plasma hemoglobin greater than 0.05 gm/dl - Bilirubin greater than 50 mg/dl - Lipids greater than 1000 mg/dl - FDP greater than 20 ug/ml 11 Test Performed by: [place] [address] Deli Clerk: Shane Rowan II, M.D., Ph.D. 12 Test Performed by: [place] [address] Deli Clerk: Shane Rowan II, M.D., Ph.D. 13 Acute inflammation: >10.00 14 REFERENCE VALUE <30.0 (Negative) Test Performed by: [place] [address] Deli Clerk: Shane Rowan II, M.D., Ph.D. 15 Test Performed by: [place] [address] Deli Clerk: Shane Rowan II, M.D., Ph.D. 16 Test Performed by: [place] [address] Deli Clerk: Shane Rowan II, M.D., Ph.D. 17 Acute inflammation: >10.00 18 REFERENCE VALUE <30.0 (Negative) Test Performed by: [place] [address] Deli Clerk: Shane Rowan II, M.D., Ph.D. Procedures Date Code Description Status 03/13/2018 86188 Inject Tendon Sheath Or Ligament Aponeurosis Eg Completed Plantar Fascia 03/03/2018 51888 EKG Tracing & Interpretation Completed 02/23/2018 58179 ECHO Transthorasic Realtime 2D W Doppler & Color Flow Completed Hosp 02/21/2018 29593 ECHO Transthorasic Realtime 2D W Doppler & Color Flow Completed Hosp 02/19/2018 57483 EEG Recording Awake & Drowsy Completed 02/17/2018 60536 EEG Recording Awake & Asleep Completed 02/17/2018 47817 EKG, Interpretation Only Completed 01/20/2018 49888 ECHO Transthoracic, Real-Time 2D With Doppler And Completed Color Flow 01/20/2018 47482 ECHO Transthoracic, Real-Time 2D With Doppler And Completed Color Flow 01/10/2018 18244 EKG Tracing & Interpretation Completed 11/01/2017 93002 ECHO Transthorasic Realtime 2D W Doppler & Color Flow Completed Hosp 10/24/2017 68229 EKG, Interpretation Only Completed 10/19/2017 30103 EKG, Interpretation Only Completed 08/06/2016 21152 EKG Tracing & Interpretation Completed 08/03/2016 [id number] Diabetic Retinal Eye Exam Completed 07/27/2016 08813 ECHO Transthorasic Realtime 2D W Doppler & Color Flow Completed Hosp 06/15/2016 12804 EKG, Interpretation Only Completed 06/14/2016 25800 EKG, Interpretation Only Completed 05/21/2016 47813 EKG, Interpretation Only Completed 05/20/2016 37988 EKG, Interpretation Only Completed 05/19/2016 60744 EKG, Interpretation Only Completed 05/18/2016 45519 EKG, Interpretation Only Completed 05/17/2016 82662 ECHO Transthorasic Realtime 2D W Doppler & Color Flow Completed Hosp 05/17/2016 04565 EKG, Interpretation Only Completed 05/03/2016 00681 ECHO Transthorasic Realtime 2D W Doppler & Color Flow Completed Hosp Encounters Type Date Location Provider Dx Diagnosis Office Visit 05/16/2018 [facility] PabloAlem Stetson, N18.5 Chronic kidney 1:30p Services Of Renu Guo disease, stage 5 R56.9 Unspecified convulsions G62.9 Polyneuropathy, unspecified Z86.73 Prsnl hx of TIA (TIA), and cereb infrc w/o resid deficits Office Visit 04/11/2018 3:00p [facility] Marybeth S. I44.7 Left bundle -branch Of [employer] [place] Carlos Eduardo, N.P. 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 finger Office Visit 03/03/2018 2:00p Nimisha Thibodeaux, Z95.2 Presence of Cardiology Of N.P. prosthetic heart [employer] [place] valve I12.0 Hyp chr kidney disease w stage 5 chr kidney disease or Esrd I97.191 Oth postproc cardiac functn disturb following oth surgery N18.6 End stage renal disease Office Visit 02/24/2018 [facility] Hai Cedeno I63.9 Cerebral 10:20a Mickioctab MD infarction, Hospitalists unspecified R56.9 Unspecified convulsions E16.2 Hypoglycemia, unspecified R41.82 Altered mental status, unspecified Z86.79 Personal history of other diseases of the circulatory system Z87.39 Personal history of diseases of the ms sys and conn tiss Office Visit 02/23/2018 [facility] Hai Cedeno I63.9 Cerebral 10:19a tab Walters MD infarction, Hospitalists unspecified R56.9 Unspecified convulsions E16.2 Hypoglycemia, unspecified N18.6 End stage renal disease R50.9 Fever, unspecified R41.82 Altered mental status, unspecified I10 Essential (primary) hypertension M32.9 Systemic lupus erythematosus, unspecified Office Visit 02/23/2018 [facility] Baker.Rohan Cerebral 7:00a Jeramy Zaragoza M.D. infarction, unspecified R56.9 Unspecified convulsions Office Visit 02/22/2018 [facility] Fritz Yarbrough Cerebral 10:18a M.D. infarction, unspecified Office Visit 02/21/2018 [facility] Ibrahim63.9 Cerebral 7:00a Jeramy Zaragoza M.D. infarction, unspecified G93.41 Metabolic encephalopathy R56.9 Unspecified convulsions Office Visit 02/21/2018 10:17a [facility] Fritz Yarbrough Cerebral M.D. infarction, unspecified D72.89 Other specified disorders of white blood cells Office 02/20/2018 [facility] Cottrell G93.41 Metabolic Visit 7:00a Jeramy Zaragoza M.D. 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 disease, unspecified Hospitalists R41.0 Disorientation, unspecified N18.6 End stage renal disease Office 02/19/2018 [facility] Cottrell G93.41 Metabolic Visit 7:00a Jeramy Zaragoza M.D. 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 rel to extrn Hospitalists causes, not ntrct, w/o stat epi N18.6 End stage renal disease I10 Essential (primary) hypertension M32.9 Systemic lupus erythematosus, unspecified E16.2 Hypoglycemia, unspecified Office Visit 02/18/2018 [facility] Cottrell R56.9 Unspecified 7:00a Jeramy Zaragoza M.D. convulsions G93.41 Metabolic encephalopathy G89.29 Other chronic pain Office Visit 02/18/2018 10:14a [facility] Victor M Clements G40.509 Epileptic seiz M.DAlem rel to extrn causes, not ntrct, w/o stat epi M32.9 Systemic lupus erythematosus, unspecified Office Visit 02/17/2018 [facility] Khloe R56.9 Unspecified 7:00a Jeramy King MD convulsions R41.82 Altered mental status, unspecified Office Visit 02/17/2018 10:13a [facility] Victor M Clements R41.82 Altered mental M.D. 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, intractable, w/o stat epi Office Visit 01/10/2018 11:30a [facility] Gricelda Arango, Z95.2 Presence of Of Renu Guo prosthetic heart valve I38 Endocarditis, valve unspecified M32.9 Systemic lupus erythematosus, unspecified Z99.2 Dependence on renal dialysis I31.9 Disease of pericardium, unspecified Office Visit 11/01/2017 [facility] Yari R07.9 Chest pain, 9:05a Assoctab NP unspecified Hospitalists I10 Essential (primary) hypertension N18.6 End stage renal disease D64.9 Anemia, unspecified Office Visit 10/27/2017 [facility] Hai Cedeno J18.9 Pneumonia, 11:23a Assoctab MD unspecified Hospitalists organism R50.9 Fever, unspecified N18.6 End stage renal disease I10 Essential (primary) hypertension [facility] R50.9 Fever, 11:22a tab Walters MD unspecified Hospitalists N18.6 End stage renal disease M32.9 Systemic lupus erythematosus, unspecified I10 Essential (primary) hypertension Office Visit 10/[facility]2017 [facility] R50.9 Fever, 11:22a Mickioctab MD unspecified Hospitalists N18.6 End stage renal disease R07.89 Other chest pain M32.9 Systemic lupus erythematosus, unspecified Office Visit 10[facility]24[facility]2017 [facility] R07.89 Other chest Assoc,tab Wren MD pain Hospitalists N18.6 End stage renal disease M32.9 Systemic lupus erythematosus, unspecified I10 Essential (primary) hypertension Office Visit 10/23/2017 11:21a [facility] N18.6 End stage Assoctab M.D. renal disease Hospitalists M32.9 Systemic lupus erythematosus, unspecified I10 Essential (primary) hypertension A41.9 Sepsis, unspecified organism Office Visit 10/22/2017 11:21a [facility] N18.6 End stage Assoctab M.D. renal disease Hospitalists M32.9 Systemic lupus erythematosus, unspecified I10 Essential (primary) hypertension A41.9 Sepsis, unspecified organism Office Visit 10/21/2017 11:21a [facility] N18.6 End stage Assoctab M.D. renal disease Hospitalists M32.9 Systemic lupus erythematosus, unspecified I10 Essential (primary) hypertension A41.9 Sepsis, unspecified organism Office Visit 10/21/2017 8:17a [facility] Chelo Mcadams J18.9 Pneumonia, Infectious Brant Herring unspecified Diseases organism N18.6 End stage renal disease Z99.2 Dependence on renal dialysis Office Visit 10/20/2017 [facility] M32.9 Systemic lupus 11:20a Assoctab M.D. 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 unspecified Hospitalists organism A41.9 Sepsis, unspecified organism J96.01 Acute respiratory failure with hypoxia R74.8 Abnormal levels of other serum enzymes N18.6 End stage renal disease Office Visit 08/23/2016 Rheumatology Charanjit M32.12 Pericarditis in 10:00a Services Of Renu Baugh M.D. systemic lupus erythematosus Z79.52 retirement (current) use of systemic steroids M32.19 Oth organ or system involv in systemic lupus erythematosus E87.5 Hyperkalemia Z79.899 Other detention (current) drug therapy G62.9 Polyneuropathy, unspecified Office Visit 08/17/2016 2:54p [facility] Gwendolyn R07.9 Chest pain, Assoc,tab Burns M.D. unspecified Hospitalists M32.19 Oth organ or system involv in systemic lupus erythematosus N18.6 End stage renal disease Office Visit 08/16/2016 [facility] Petr R07.9 Chest pain, 2:53p Assoc,pc Tesfaye, N.P. unspecified Hospitalists M32.19 Oth organ or system involv in systemic lupus erythematosus N18.6 End stage renal disease I10 Essential (primary) hypertension Office Visit 08/06/2016 Nimisha Arango, M32.12 Pericarditis in 8:20a Cardiology Of Brant systemic lupus Supervisor [place] [facility] erythematosus I44.0 Atrioventricular block, first degree E87.5 Hyperkalemia N18.6 End stage renal disease I42.2 Other hypertrophic cardiomyopathy Office Visit 08/06/2016 Rheumatology Charanjit M32.12 Pericarditis in 10:40a Services Of Renu Baugh M.D. 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 systemic lupus erythematosus M32.14 Glomerular disease in systemic lupus erythematosus Z79.52 retirement (current) use of systemic steroids Office Visit 07/27/2016 1:04p [place] Vinny Mixon M54.2 Cervicalgia Assoc,pc Hospitalists D.O. M32.12 Pericarditis in systemic lupus erythematosus N18.6 End stage renal disease Office Visit 07/26/2016 1:03p [place] Vinny Nolan M54.2 Cervicalgia Assoc,pc Hospitalists N.P. M32.12 Pericarditis in systemic lupus erythematosus N18.6 End stage renal disease Office Visit 06/25/2016 Rheumat[facility] Charanjit M32.14 Glomerular disease 11:20a Services Of Renu Baugh M.D. in systemic lupus erythematosus R60.0 Localized edema Z79.899 Other detention (current) drug therapy Office Visit 06/16/2016 [facility] Nery K52.9 Noninfective 1:29p Assoc,Drew Brennan.O. gastroenteritis and Hospitalists colitis, unspecified M32.19 Oth organ or system involv in systemic lupus erythematosus N18.6 End stage renal disease Office Visit 06/15/2016 [facility] Nery K52.9 Noninfective 1:28p Assoctab D.O. gastroenteritis and Hospitalists colitis, unspecified M32.19 Oth organ or system involv in systemic lupus erythematosus N18.6 End stage renal disease Office Visit 06/14/2016 [facility] Jolanta Nolan, K52.9 Noninfective 1:27p Assoc,pc N.P. gastroenteritis and Hospitalists colitis, unspecified M32.19 Oth organ or system involv in systemic lupus erythematosus N18.6 End stage renal disease Office Visit 06/04/2016 Rheumatology Charanjit M32.14 Glomerular disease 10:20a Services Of Renu Baugh M.D. 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 renal disease Hospitalists M32.8 Other forms of systemic lupus erythematosus I44.2 Atrioventricular block, complete Office Visit 05/21/2016 12:10p [facility] N18.6 End stage Assoc,tab Storey M.D. renal disease Hospitalists I44.2 Atrioventricular block, complete M32.8 Other forms of systemic lupus erythematosus Office Visit 05/21/2016 [facility] Cristóbal Cottrell I44.2 Atrioventricular 3:08p Of Renu Clements DO block, complete FACC Office Visit 05/21/2016 Rheumatology Charanjit M32.19 Oth organ or system 9:23a Services Of Renu Baugh M.D. involv in systemic lupus erythematosus I44.2 Atrioventricular block, complete N18.6 End stage renal disease Z79.899 Other detention (current) drug therapy Office Visit 05/20/2016 [facility] Gwendolyn I44.2 Atrioventricular 12:10p Assoc,tab Burns M.D. block, complete Hospitalists M32.8 Other forms of systemic lupus erythematosus N18.6 End stage renal disease Office Visit 05/19/2016 [facility] Gricelda Arango, I44.2 Atrioventricular 1:49p Of Renu Guo block, complete Office Visit 05/19/2016 Rheumatology Charanjit M32.19 Oth organ or system 9:21a Services Of Renu Baugh M.D. involv in systemic lupus erythematosus I44.2 Atrioventricular block, complete N18.6 End stage renal disease Z79.899 Other detention (current) drug therapy Office Visit 05/19/2016 [facility] Gwendolyn I44.2 Atrioventricular 12:09p Assoctab M.D. block, complete Hospitalists M32.8 Other forms of systemic lupus erythematosus N18.6 End stage renal disease Office Visit 05/18/2016 [facility]umat[facility] Charanjit M32.19 Oth organ or system 9:20a Services Of Renu Baugh M.D. 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 block, complete Hospitalists M32.8 Other forms of systemic lupus erythematosus N18.6 End stage renal disease Office Visit 05/18/2016 2:59p [facility] Tito Mcadams R00.1 Bradycardia, Of Renu Hill M.D. unspecified Office Visit 05/17/2016 12:12p [facility] Gewndolyn N18.6 End stage renal Assoctab M.D. disease Hospitalists I44.2 Atrioventricular block, complete M32.8 Other forms of systemic lupus erythematosus Office Visit 05/17/2016 Rheumat[facility] Charanjit M32.19 Ot organ or system 9:16a Services Of Renu Baugh M.D. 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 involv in systemic lupus erythematosus I30.9 Acute pericarditis, unspecified N18.6 End stage renal disease Z79.899 Other detention (current) drug therapy Office Visit 05/04/2016 [facility] David M32.19 Oth organ or 1:39p Assoctab M.D. system involv in Hospitalists systemic lupus erythematosus I30.9 Acute pericarditis, unspecified N18.6 End stage renal disease Office Visit 05/03/2016 Rheumat[facility] Charanjit M32.14 Glomerular disease 7:45a Services Of Reun Baugh M.D. 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 system involv in Hospitalists systemic lupus erythematosus I30.9 Acute pericarditis, unspecified N18.6 End stage renal disease Office Visit 05/03/2016 [facility] Gricelda Arango, I31.9 Disease of 1:46p Of Renu M.DAlem pericardium, unspecified Office Visit 05/02/2016 Rheumatology Charanjit Baugh M32.14 Glomerular disease 7:43a Services Of Renu Guo in systemic lupus erythematosus R09.1 Pleurisy F17.210 Nicotine dependence, cigarettes, uncomplicated Z79.899 Other detention (current) drug therapy Office Visit 05/02/2016 [facility] M32.19 Ot organ or 1:37p Assoc,tab Carlin, N.PAlem system involv in Hospitalists systemic lupus erythematosus N18.6 End stage renal disease I30.9 Acute pericarditis, unspecified Office Visit 05/02/2016 1:45p [facility] Gricelda Arango, I31.9 Disease of Of Supervisor [place] M.D. pericardium, unspecified Plan of Treatment Future Appointment(s):06/15/2018 10:00 am - Rose Del Angel M.D. at [facility]05/25/2018 - Rose Del Angel M.D.M65.331 Trigger finger, right middle fingerFollow up:Follow up: 9-10 days noyxhpD41.321 Trigger finger , right index finger
--- OUTSIDE RECORDS SUMMARY | 2018-06-02 20:54 | XMS REPORT | Continuity of Care Document ---
:1985 External Reference #:[id number] Author Name Betina Flowers Care Team Providers Name Role Phone Mirza Valentine DO Primary Care Physician Unavailable Payers Type Date Identification Numbers Payment Provider Subscriber Policy Number: [id number] Medicare Jose Enrique Puri PayID: [id number] [address] [place] [address] Policy Number: [id number] Medicaid Jose Enrique Puri Group Name: 1 1 [address] PayID: [id number] [place] [address] Expires: 2018 Policy Number: [id number] Medicare Jose Enrique Puri PayID: [id number] [address] [facility] [place] [address] Expires: 2016 Policy Number: [id number] [facility] Jose Enrique Puri PayID: [id number] [address] [place] [address] Expires: 2016 Policy Number: [id number] Medicaid Jose Enrique Puri Group Name: 1 1 [address] PayID: [id number] [place] [address] Advance Directives Description No Information Available Problems [...] General Stroke General Cancer General Rheumatoid Arthritis General Thyroid Disease Father Diabetes Mother Diabetes Social History Type Date Description Comments Sex Unknown Marital Status Single Lives With Alone Occupation Disabled Tobacco Use Start: Unknown End: Former Cigarette Smoker Unknown ETOH Use Denies alcohol use Tobacco Use Start: Unknown End: Patient is a former smoker Unknown Recreational Drug Use Denies Drug Use Smoking Status Reviewed: 05/29/18 Patient is a former smoker Exercise Type/Frequency [...] by mouth I10 Marybeth S. Succinate ER /2017 ER 24HR s every day Carlos Eduardo N.P. Plaquenil 05/14 Active Tablets 200mg 180ta Please bs take 2 by Amauri mouth M.DAlem daily ongoing Renvela Active Pills 3 pills Unknown / with meals Nicotine Polacrilex Active Gum 2mg Stuppel, Mirza, DO Zyrtec Allergy Active Tablets 10mg 1 by mouth Unknown /0000 every day or as needed Omeprazole Active Capsules 20mg [address] every day Methylphenidate HCL Active Tablets 10mg 1 tablet Stuppel, po as Mirza, DO needed Tyenol Extra Active 500mg 4 tablet Unknown Strenght 0000 po daily prn Zofran Active as needed Unknown Mycophenolate Active Tablets 360mg Take [address] Tablets By Mouth Two Times Daily Please Titrate as Discussed Calcitriol Active Capsules 1 tablet Unknown /0000 PO daily Cetirizine HCL Active Tablets 10mg 1 by mouth Unknown / every day Dicyclomine HCL Active Capsules 10mg prn Unknown Buprenorphine Active Patches 21mg apply 1 Unknown /0000 Weekly patch per week Methylprednisolone Active Tablets 8mg 3 PO daily Gabapentin Active Capsules 400mg take one capsule by mouth 3 times a day Retuxan Active infusion clinic once a week for 4 weeks Doxycycline Hyclate Active Capsules 100mg Baudilio, MD Arias Gabapentin 04/11 Hx Capsules 300mg 270ca 1 by mouth Marybeth S. ps three Foster, - times a N.P. [...] Hx Capsules 0.6mg 30caps 1 by mouth 01/09/2018 every day Brant Baugh Mycophenolate Mofetil 05/14/2016 - Hx Tablets 500mg 120tabs take two 01/09/2018 tablets by luca BaughDAlem twice a day Tums - Hx Chewtabs 500mg as needed Unknown 06/04/2016 Chitosan - Hx Tablets 500mg Unknown 06/25/2016 Amlodipine Besylate - Hx Tablets 10mg 60tabs 1 by mouth 01/09/2018 every day Brant Baugh Toprol XL [...] Available Vital Signs Date Vital Result Comment 05/29/2018 11:37am Height 68 inches 5'8" Weight 150.00 lb Heart Rate 72 /min BP Systolic 134 mmHg BP Diastolic 66 mmHg Respiratory Rate 16 /min Body Temperature 98.2 F BMI (Body Mass Index) 22.8 kg/m2 05/25/2018 2:48pm Height 68 inches 5'8" Weight [...] H/L Range Note Vitamin B12 And 05/18/2018 [facility] Vitamin B12 868 pg/mL N 180-914 1 Folate Serum [address] [place] [address] [phone] Folic Acid (Folate) 9.75 ng/mL >3.99 Vitamin B6 05/18/2018 [facility] Pyridoxal 4 g/L Abnormal 5- [address] 5[place] [address] [phone] Pyridoxic Acid 84 g/L Abnormal 3-30 3 Laboratory 05/18/2018 [facility] TSH (Thyroid 1.45 N 0.34- 5.[address] Stim Horm) mcIU/mL [place], [place] [id number] [phone] Laboratory 01/10/2018 [facility] Erythrocyte Sed 120 mm/Hr High 0-14 test finding [address] [place] [address] [phone] C Reactive Protein 65.24 mg/L High <8.01 Urine Culture And 07/26/2016 [facility] Urine Culture SEE RESULT [address] [place] [address] [phone] Laboratory test 07/26/2016 [facility] Magnesium 2.8 mg/dL High 1.9-[address] [place] [address] [phone] Lipase 424 U/L High 11.0-82.0 Creatine Kinase(CK) 62 U/L N 10-223 C Reactive Protein 38.09 mg/L High < 5.00 5 TSH (Thyroid Stim Horm) 1.00 mcIU/mL N 0.34-5.60 Comp Metabolic Panel 07/26/2016 [facility] Sodium 132 mmol/L Low 133-[address] [place] [address] [phone] Potassium 5.1 mmol/L High 3.5-5.0 Chloride 91 [...] Egfr 5.9 N >60 6 CKMB 07/26/2016 [facility] CKMB ng/mL 1.3 ng/mL N 0.6-6.[address] [place] [address] [phone] Laboratory test 07/26/2016 [facility] B-Type 56 pg/mL N [address] [place] [address] Peptide BNP [phone] Lactic Acid 0.7 mmol/L N 0.5-2.0 8 Troponin-I (TnI) 0.01 ng/mL N <0.04 9 CBC Auto 07/26/2016 [facility] White Blood 13.0 10^3/uL High 3.5-10.[address] [place] [address] [phone] Red Blood Count 3.76 10^6/uL Low 4.0-5.4 [...] Cells % 0 N Laboratory test 07/26/2016 [facility] Partial 27.2 seconds N 26.0-36.[address] [place] [address] PTT [phone] D Dimer Quantitative < 200 ng/mL N Less Than 230 10 Inr/Protime 07/26/2016 [facility] Inr 0.81 Low 0.89-1.[address] [place] [address] [phone] Urinalysis Profile 07/26/2016 [facility] Urine Color Yellow N [address] [place] [address] [phone] Urine Appearance Clear N Urine Specific [place] 1.011 N 1.010-1.030 Urine pH 8.0 N [...] Urine Bacteria 1+ Abnormal Absent Laboratory 06/25/2016 [facility] Complement C3 56 mg/dL Abnormal 75 - 11 test finding [address] [place] [address] [phone] Complement C4 17 mg/dL N 14 - 40 12 CBC Auto 06/25/2016 [facility] White Blood 13.3 10^3/uL High 3.5-10.[address] [place] [address] [phone] Red Blood Count 3.56 10^6/uL Low 4.0-5.4 [...] Cells % 0 N Laboratory test 06/25/2016 [facility] C Reactive 3.95 mg/L N < 5.00 [address] [place] [address] [phone] Anti Double Stranded Dna AB <12.3 IU/mL N 14 Laboratory 06/04/2016 [facility] Complement C3 74 mg/dL Abnormal 75 - 15 test finding [address] [place] [address] [phone] Complement C4 15 mg/dL N 14 - 40 16 C Reactive Protein 20.16 mg/L High < 5.00 17 Anti Double Stranded Dna AB 19.7 IU/mL N 18 1 Normal Range 180 to 914 Indeterminate Range 145 to 180 Deficient Range <145 2 ADDITIONAL INFORMATION This test was developed and its performance characteristics determined by [facility] in a manner consistent with CLIA requirements. This test has not been cleared or approved by the U.S. Food and Drug Administration. 3 ADDITIONAL INFORMATION This test was developed and its performance characteristics determined by [facility] in a manner consistent with CLIA requirements. This test has not been cleared or approved by the U.S. Food and Drug Administration. Test Performed by: [facility] [address] [place] [address] 4 SEE RESULT BELOW Name: JOSE ENRIQUE PURI : [address]: Nery Mixon DO Acct: [id number] Unit: [id number] AGE: 31 Location: [place] [address] Re07/26/16 SEX: M Status: ADM Moi SPEC: [id number] BESSY: 07/26/16-1618 [facility] DR: Shane Aranda MD REQ: [id number] RECD: 07/26/16 STATUS: JAVI ASH DR: [facility] Diego Doshi III, MD _ SOURCE: URINE SPDESC: ORDERED: Urine Culture Procedure Result Reported Site Urine Culture Final 07/28/16- 0815 ML Organism 1 ENTEROCOCCUS FAECALIS [place] Count 25-50,000 (Moderate) CFU/ML 1. ENTEROCOCCUS FAECALIS [...] These antibiotics are not available in the [facility] Formulary Contact the Microbiology Department for any additional antibiotic reporting. * ML - MAIN LAB ([facility]) . END OF REPORT * ML=Testing performed at Main Lab DEPARTMENT OF PATHOLOGY, [address] [place] [address] Jose Steiner M.D. Director [facility] # [id number] 5 Acute inflammation: >10.00 6 Because ethnic [...] pg/mL: likely moderate to severe CHF 8 [facility] Severe Sepsis and Septic Shock Management Bundle Measure requires all lactic acids initially measuring >2.0 mmol/L be repeated. 9 99th percentile=0.04 ng/mL Troponin results at [facility] and [facility] are not interchangeable. 10 Please note: The following may produce a false positive D Dimer test: - Rheumatoid factor greater than 60 IU/ml - Plasma hemoglobin greater than 0.05 gm/dl - Bilirubin greater than 50 mg/dl - Lipids greater than 1000 mg/dl - FDP greater than 20 ug/ml 11 Test Performed by: [place] [address] Military Nurse: Shane Rowan II, M.D., Ph.D. 12 Test Performed by: [place] [address] Military Nurse: Shane Rowan II, M.D., Ph.D. 13 Acute inflammation: >10.00 14 REFERENCE VALUE <30.0 (Negative) Test Performed by: [place] [address] Military Nurse: Shane oRwan II, M.D., Ph.D. 15 Test Performed by: [place] [address] Military Nurse: Shane Rowan II, M.D., Ph.D. 16 Test Performed by: [place] [address] Military Nurse: Shane Rowan II, M.D., Ph.D. 17 Acute inflammation: >10.00 18 REFERENCE VALUE <30.0 (Negative) Test Performed by: [place] [address] Military Nurse: Shane Rowan II, M.D., Ph.D. Procedures Date Code Description Status 03/13/2018 94705 Inject Tendon Sheath Or Ligament Aponeurosis Eg Completed Plantar Fascia 03/03/2018 25263 EKG Tracing & Interpretation Completed 02/23/2018 76469 ECHO Transthorasic Realtime 2D W Doppler & Color Flow Completed Hosp 02/21/2018 35039 ECHO Transthorasic Realtime 2D W Doppler & Color Flow Completed Hosp 02/19/2018 01849 EEG Recording Awake & Drowsy Completed 02/17/2018 00924 EEG Recording Awake & Asleep Completed 02/17/2018 38717 EKG, Interpretation Only Completed 01/20/2018 48803 ECHO Transthoracic, Real-Time 2D With Doppler And Completed Color Flow 01/20/2018 90512 ECHO Transthoracic, Real-Time 2D With Doppler And Completed Color Flow 01/10/2018 08600 EKG Tracing & Interpretation Completed 11/01/2017 11484 ECHO Transthorasic Realtime 2D W Doppler & Color Flow Completed Hosp 10/24/2017 22407 EKG, Interpretation Only Completed 10/19/2017 45323 EKG, Interpretation Only Completed 08/06/2016 21760 EKG Tracing & Interpretation Completed 08/03/2016 611100795 Diabetic Retinal Eye Exam Completed 07/27/2016 43397 ECHO Transthorasic Realtime 2D W Doppler & Color Flow Completed Hosp 06/15/2016 09752 EKG, Interpretation Only Completed 06/14/2016 45519 EKG, Interpretation Only Completed 05/21/2016 61437 EKG, Interpretation Only Completed 05/20/2016 17703 EKG, Interpretation Only Completed 05/19/2016 78527 EKG, Interpretation Only Completed 05/18/2016 22291 EKG, Interpretation Only Completed 05/17/2016 88522 ECHO Transthorasic Realtime 2D W Doppler & Color Flow Completed Hosp 05/17/2016 84432 EKG, Interpretation Only Completed 05/03/2016 85691 ECHO Transthorasic Realtime 2D W Doppler & Color Flow Completed Hosp Encounters Type Date Location Provider Dx Diagnosis Office Visit 05/16/2018 [facility] Colton Zaragoza, N18.5 Chronic kidney 1:30p Services Of Renu Guo disease, stage 5 R56.9 Unspecified convulsions G62.9 Polyneuropathy, unspecified Z86.73 Prsnl hx of TIA (TIA), and cereb infrc w/o resid deficits Office Visit 04/11/2018 3:00p [facility] Marybeth Cottrell 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 finger Office Visit 03/03/2018 2:00p Nimisha Thibodeaux, Z95.2 Presence of Cardiology Of N.P. 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 I97.191 Oth postproc cardiac functn disturb following oth surgery N18.6 End stage renal disease Office Visit 02/24/2018 [facility] Hai Cedeno I63.9 Cerebral 10:20a Assoctab MD infarction, Hospitalists unspecified R56.9 Unspecified convulsions E16.2 Hypoglycemia, unspecified R41.82 Altered mental status, unspecified Z86.79 Personal history of other diseases of the circulatory system Z87.39 Personal history of diseases of the ms sys and conn tiss Office Visit 02/23/2018 [facility] Hai Cedeno I63.9 Cerebral 10:19a tab Walters MD infarction, Hospitalists unspecified R56.9 Unspecified convulsions E16.2 Hypoglycemia, unspecified N18.6 End stage renal disease R50.9 Fever, unspecified R41.82 Altered mental status, unspecified I10 Essential (primary) hypertension M32.9 Systemic lupus erythematosus, unspecified Office Visit 02/23/2018 [facility] Colton Hu Cerebral 7:00a Jeramy Zaragoza M.D. infarction, unspecified R56.9 Unspecified convulsions Office Visit 02/22/2018 [facility] Fritz Yarbrough Cerebral 10:18a M.D. infarction, unspecified Office Visit 02/21/2018 [facility] Colton Hu Cerebral 7:00a Jeramy Zaragoza M.D. infarction, unspecified G93.41 Metabolic encephalopathy R56.9 Unspecified convulsions Office Visit 02/21/2018 10:17a [facility] Fritz Yarbrough Cerebral M.D. infarction, unspecified D72.89 Other specified disorders of white blood cells Office 02/20/2018 [facility] Colton Cottrell G93.41 Metabolic Visit 7:00a Jeramy Zaragoza M.D. 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 disease, unspecified Hospitalists R41.0 Disorientation, unspecified N18.6 End stage renal disease Office 02/19/2018 [facility] Col[facility] Cottrell G93.41 Metabolic Visit 7:00a Jeramy Zaragoza M.D. 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 rel to extrn Hospitalists causes, not ntrct, w/o stat epi N18.6 End stage renal disease I10 Essential (primary) hypertension M32.9 Systemic lupus erythematosus, unspecified E16.2 Hypoglycemia, unspecified Office Visit 02/18/2018 [facility] Col[facility] Cottrell R56.9 Unspecified 7:00a Jeramy Zaragoza M.D. convulsions G93.41 Metabolic encephalopathy G89.29 Other chronic pain Office Visit 02/18/2018 10:14a [facility] Victor M Clements, G40.509 Epileptic seiz M.D. rel to extrn causes, not ntrct, w/o stat epi M32.9 Systemic lupus erythematosus, unspecified Office Visit 02/17/2018 [facility] Khloe R56.9 Unspecified 7:00a Jeramy King MD convulsions R41.82 Altered mental status, unspecified Office Visit 02/17/2018 10:13a [facility] Victor M Clements R41.82 Altered mental M.D. 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, intractable, w/o stat epi Office Visit 01/10/2018 11:30a [facility] Gricelda Arango, Z95.2 Presence of Of Renu Guo prosthetic heart valve I38 Endocarditis, valve unspecified M32.9 Systemic lupus erythematosus, unspecified Z99.2 Dependence on renal dialysis I31.9 Disease of pericardium, unspecified Office Visit 11/01/2017 [facility] Yari R07.9 Chest pain, 9:05a Assoc,tab Mabry NP unspecified Hospitalists I10 Essential (primary) hypertension N18.6 End stage renal disease D64.9 Anemia, unspecified Office Visit 10/27/2017 [facility] Hai Cedeno J18.9 Pneumonia, 11:23a Assoc,tab Wren MD unspecified Hospitalists organism R50.9 Fever, unspecified N18.6 End stage renal disease I10 Essential (primary) hypertension Office Visit 10/26/2017 [facility] Hai Cedeno R50.9 Fever, 11:22a Assoc,tab Wren MD unspecified Hospitalists N18.6 End stage renal disease M32.9 Systemic lupus erythematosus, unspecified I10 Essential (primary) hypertension Office Visit 10/25/2017 [facility] Hai Cedeno R50.9 Fever, 11:22a Assoc,tab Wren MD unspecified Hospitalists N18.6 End stage renal disease R07.89 Other chest pain M32.9 Systemic lupus erythematosus, unspecified Office Visit 10/24/2017 11:22a [facility] R07.89 Other chest Assoc,tab Wren MD pain Hospitalists N18.6 End stage renal disease M32.9 Systemic lupus erythematosus, unspecified I10 Essential (primary) hypertension Office Visit 10/23/2017 11:21a [facility] N18.6 End stage Assoc,tab Storey M.D. renal disease Hospitalists M32.9 Systemic lupus erythematosus, unspecified I10 Essential (primary) hypertension A41.9 Sepsis, unspecified organism Office Visit 10/22/2017 11:21a [facility] N18.6 End stage Assoc,tab Storey M.D. renal disease Hospitalists M32.9 Systemic lupus erythematosus, unspecified I10 Essential (primary) hypertension A41.9 Sepsis, unspecified organism Office Visit 10/21/2017 11:21a [facility] N18.6 End stage Assoc,tab Storey M.D. renal disease Hospitalists M32.9 Systemic lupus erythematosus, unspecified I10 Essential (primary) hypertension A41.9 Sepsis, unspecified organism Office Visit 10/21/2017 8:17a [facility] Chelo Mcadams J18.9 Pneumonia, Infectious Brant Herring unspecified Diseases organism N18.6 End stage renal disease Z99.2 Dependence on renal dialysis Office Visit 10/20/2017 [facility] Mauri M32.9 Systemic lupus 11:20a Assoc,tab Storey M.D. 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 unspecified Hospitalists organism A41.9 Sepsis, unspecified organism J96.01 Acute respiratory failure with hypoxia R74.8 Abnormal levels of other serum enzymes N18.6 End stage renal disease Office Visit 08/23/2016 [facility] Charanjit M32.12 Pericarditis in 10:00a Services Of Renu Baugh M.D. systemic lupus erythematosus Z79.52 group home (current) use of systemic steroids M32.19 Oth organ or system involv in systemic lupus erythematosus E87.5 Hyperkalemia Z79.899 [facility] [place] [facility] drug therapy G62.9 Polyneuropathy, unspecified Office Visit 08/17/2016 2:54p [facility] Gwendolyn R07.9 Chest pain, Assoc,tab Burns M.D. unspecified Hospitalists M32.19 Oth organ or system involv in systemic lupus erythematosus N18.6 End stage renal disease Office Visit 08/16/2016 [facility] Petr R07.9 Chest pain, 2:53p Assoc,tab Carlin, N.P. unspecified Hospitalists M32.19 Oth organ or system involv in systemic lupus erythematosus N18.6 End stage renal disease I10 Essential (primary) hypertension Office Visit 08/06/2016 Nimisha Arango M32.12 Pericarditis in 8:20a Cardiology Of Brant systemic lupus 3D Artist [facility] erythematosus I44.0 Atrioventricular block, first degree E87.5 Hyperkalemia N18.6 End stage renal disease I42.2 Other hypertrophic cardiomyopathy Office Visit 08/06/2016 Rheumatology Charanjit M32.12 Pericarditis in 10:40a Services Of R[facility] Baugh M.D. 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 systemic lupus erythematosus M32.14 Glomerular disease in systemic lupus erythematosus Z79.52 group home (current) use of systemic steroids Office Visit 07/27/2016 1:04p [facility] Nery Mixon M54.2 Cervicalgia Assoc,pc Hospitalists D.O. M32.12 Pericarditis in systemic lupus erythematosus N18.6 End stage renal disease Office Visit 07/26/2016 1:03p [facility] Jolanta Nolan M54.2 Cervicalgia Assoc,pc Hospitalists N.P. M32.12 Pericarditis in systemic lupus erythematosus N18.6 End stage renal disease Office Visit 06/25/2016 Rheumatology Charanjit M32.14 Glomerular disease 11:20a Services [facility] Baugh M.D. in systemic lupus erythematosus R60.0 Localized edema Z79.899 Other [place] [facility] (current) drug therapy Office Visit 06/16/2016 [facility] Nery K52.9 Noninfective 1:29p Assoc,tab Mixon D.O. gastroenteritis and Hospitalists colitis, unspecified M32.19 Oth organ or system involv in systemic lupus erythematosus N18.6 End stage renal disease Office Visit 06/15/2016 [facility] Nery K52.9 Noninfective 1:28p Assoc,tab Mixon D.O. gastroenteritis and Hospitalists colitis, unspecified M32.19 Oth organ or system involv in systemic lupus erythematosus N18.6 End stage renal disease Office Visit 06/14/2016 [facility] Jolanta Nolan, K52.9 Noninfective 1:27p Assoc,tab Luna gastroenteritis and Hospitalists colitis, unspecified M32.19 Oth organ or system involv in systemic lupus erythematosus N18.6 End stage renal disease Office Visit 06/04/2016 Rheumatology Charanjit M32.14 Glomerular disease 10:20a Services Of Renu Baugh M.D. in systemic lupus erythematosus Z99.2 Dependence on renal dialysis N18.6 End stage renal disease R60.0 Localized edema Z79.899 Other [place] (current) drug therapy Office Visit 05/22/2016 Rheumat[facility] Charanjit M32.19 Oth organ or system 9:23a Services Of R[facility] Baugh M.D. involv in systemic lupus erythematosus I44.2 Atrioventricular block, complete N18.6 End stage renal disease Z79.899 Other [place] [facility] ([facility] drug therapy [facility] Assoctab M.D. renal disease Hospitalists M32.8 Other forms of systemic lupus erythematosus I44.2 Atrioventricular block, complete Office Visit 05/21/2016 12:10p [facility] N18.6 End stage Asstab salguero M.D. renal disease Hospitalists I44.2 Atrioventricular block, complete M32.8 Other forms of systemic lupus erythematosus Office Visit 05/21/2016 [facility] Cristóbal Cottrell I44.2 Atrioventricular 3:08p Of Renu Clements DO block, complete FACC Office Visit 05/21/2016 Rheumatology Charanjit M32.19 Oth organ or system 9:23a Services Of Renu Baugh M.D. involv in systemic lupus erythematosus I44.2 Atrioventricular block, complete N18.6 End stage renal disease Z79.899 Other superintendent container terminal (current) drug therapy Office Visit 05/20/2016 [facility] Gwendolyn I44.2 Atrioventricular 12:10p Assoc,tab Burns M.D. block, complete Hospitalists M32.8 Other forms of systemic lupus erythematosus N18.6 End stage renal disease Office Visit 05/19/2016 [facility] Gricelda Mitcheller, I44.2 Atrioventricular 1:49p Of Renu beasley, complete Office Visit 05/19/2016 Rheumatology Charanjit M32.19 Oth organ or system 9:21a Services Of Renu Baugh M.D. involv in systemic lupus erythematosus I44.2 Atrioventricular block, complete N18.6 End stage renal disease Z79.899 Other [place]current[facility] drug therapy Office Visit 05/19/2016 [facility] Gwendolyn I44.2 Atrioventricular 12:09p Assoc,tab Burns M.D. block, complete Hospitalists M32.8 Other forms of systemic lupus erythematosus N18.6 End stage renal disease Office Visit 05/18/2016 [facility] Charanjit M32.19 Oth organ or system 9:20a Services Of Renu Baugh M.D. 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 block, complete Hospitalists M32.8 Other forms of systemic lupus erythematosus N18.6 End stage renal disease Office Visit 05/18/2016 2:59p [facility] Tito Mcadams R00.1 Bradycardia, Of Renu Hill M.D. unspecified Office Visit 05/17/2016 12:12p [facility] N18.6 End stage renal Assoctab M.D. disease Hospitalists I44.2 Atrioventricular block, complete M32.8 Other forms of systemic lupus erythematosus Office Visit 05/17/2016 Rheumatology Charanjit M32.19 Oth organ or system 9:16a Services Of Renu Baugh M.D. 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 involv in systemic lupus erythematosus I30.9 Acute pericarditis, unspecified N18.6 End stage renal disease Z79.899 Other [place] (current[facility] drug therapy Office Visit 05/04/2016 [facility] M32.19 Oth organ or 1:39p Assoc,tab Valderrama M.D. system involv in Hospitalists systemic lupus erythematosus I30.9 Acute pericarditis, unspecified N18.6 End stage renal disease Office Visit 05/03/2016 Rheumatology Charanjit M32.14 Glomerular disease 7:45a Services Of Renu Baugh M.D. in systemic lupus erythematosus R09.1 Pleurisy F17.210 Nicotine dependence, cigarettes, uncomplicated Z79.899 Other [place] [facility] (current) drug therapy Office Visit 05/03/2016 [facility] M32.19 Ot organ or 1:38p Assoc,tab Valderrama M.D. system involv in Hospitalists systemic lupus erythematosus I30.9 Acute pericarditis, unspecified N18.6 End stage renal disease Office Visit 05/03/2016 [facility] Gricelda Arango I31.9 Disease of 1:46p Of Renu M.D. 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 system involv in Hospitalists systemic lupus erythematosus N18.6 End stage renal disease I30.9 Acute pericarditis, unspecified Office Visit 05/02/2016 1:45p [facility] Gricelda Arango I31.9 Disease of Of Renu M.D. pericardium, unspecified Plan of Treatment Future Appointment(s):07/27/2018 1:00 pm - Cristóbal Brower MD, FACS at [facility]05/29/2018 - Cristóbal Brower MD, FACSK61.0 Anal abscessFollow up:2 months
[2018-06-02] MEDS ORDERED: Morphine TAB Extended Release (*) 30 MG TAB.ER PO ONE (21:11)
--- NOTE | 2018-06-02 21:14 | ED ---
Lower Extremity - HPI Summary HPI Summary: This patient is a 33 year old male presenting to [facility] accompanied by friend with a chief complaint of bilateral lower extremity pain since the past few days. Patient has a hx of neuropathy and lupus. Patient states this has been an ongoing problem, but it has been worse in the last few days. Patient goes to the pain clinic, which prescribed morphine to the patient, but patient was unable to receive the medicine because the pharmacy had run out and morphine was on backorder. The pain is described as a burning. The pain is rated 9/10 in severity. Symptoms aggravated by nothing. Symptoms alleviated by nothing. Patient denies any other medical complaints at this time. - History of Current Complaint Chief Complaint: EDExtremityUpper Stated Complaint: PAIN AND BURNING IN BOTH FT Time Seen by Provider: 06/02/18 20:59 Hx Obtained From: Patient Mechanism Of Injury: Other - neuropathy Onset of Pain: Days Onset/Duration: Still Present Severity Currently: Severe Pain Intensity: 9 Pain Scale Used: 0-10 Numeric Timing: Constant Location: Is Discrete @ - bilateral feet Character Of Pain: Burning Aggravating Factor(s): Nothing Alleviating Factor(s): Nothing Able to Bear Weight: Yes - Allergies/Home Medications Allergies/Adverse Reactions: Allergies Allergy/AdvReac Type Severity Reaction Status Date / Time hydralazine Allergy Intermediate Shortness Verified 06/02/18 20:36 of Breath tramadol Allergy Intermediate Possible Verified 06/02/18 20:36 Seizures prednisone Allergy Hallucinati Verified 06/02/18 20:36 ons PMH/Surg Hx/FS Hx/Imm Hx Previously Healthy: No Endocrine/Hematology History: Reports: Hx Systemic Lupus Erythematosus Denies: Hx Diabetes, Hx Thyroid Disease Cardiovascular History: Reports: Hx Hypertension, Hx Valvular 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 History: Reports: Hx Chronic Renal Failure, Hx Dialysis - peritoneal, on cycler at night , Hx Renal Disease, Other Problems/Disorders - Kidney cancer , unilateral nephrectomy Musculoskeletal History: Reports: Other Musculoskeletal History - Lupus: generlized pain; Bilateral Neuropathy Feet Denies: Hx Arthritis, Hx Osteoporosis Sensory History: Reports: Hx Contacts or Glasses Opthamlomology History: Reports: Hx Contacts or Glasses Neurological History: Reports: Other Neuro Impairments/Disorders - Nerve pain - generalized Denies: Hx Seizures, Hx Transient Ischemic Attacks (TIA) Psychiatric History: Reports: Hx Anxiety, Hx Panic Disorder - Cancer History Cancer Type, Location and Year: Kidney cancer, September 2014 in [place]. Hx Chemotherapy: Yes - For lupus. - Surgical History Surgery Procedure, Year, and Place: Nephrectomy, splenectomy, inguinal hernia repaired, multiple fistula placements, open heart- aortic valve replacement ( bovine valve) Hx Anesthesia Reactions: No Infectious Disease History: No Infectious Disease History: Reports: Hx of Known/Suspected MRSA Denies: Traveled Outside the [place] in Last 30 Days - Family History Known Family History: Positive: Hypertension, Diabetes, Other - lupus - Social History Alcohol Use: Daily Hx Substance Use: No Substance Use Type: Reports: None Substance Use Comment - Amount & Last Used: sister says opiods in past Hx Tobacco Use: Yes Smoking Status (MU): Former Smoker Type: Cigarettes Amount Used/How Often: 5-10 cigs per day for 15 years until quit Length of Time of Smoking/Using Tobacco: 15 years Have You Smoked in the Last Year: Yes Review of Systems Negative: Fever Musculoskeletal: Other - bilateral feet pain Neurological: Other - neuropathy All Other Systems Reviewed And Are Negative: Yes Physical Exam - Summary Physical Exam Summary: Appearance: Well-appearing, Well-nourished, lying in bed comfortable Skin: Warm, dry, no obvious rash Eyes: sclera anicteric, no conjunctival pallor ENT: mucous membranes moist Neck: deferred Respiratory: No signs of respiratory distress Cardiovascular: Appears well perfused, pulses are nml Abdomen: deferred Musculoskeletal: Toes appear normal with the exception of eschar at the site of the prior ingrown toenail procedure, No active infection or necrosis or gangrene Neurological: Awake and alert, mentation is normal, speech is fluent and appropriate Psychiatric: affect is normal, does not appear anxious or depresseda Triage Information Reviewed: Yes Vital Signs On Initial Exam: Initial Vitals Temp Pulse Resp BP Pulse Ox 98.5 F 92 16 126/87 97 06/02/18 20:30 06/02/18 20:30 06/02/18 20:30 06/02/18 20:30 06/02/18 20:30 Vital Signs Reviewed: Yes Diagnostics - Vital Signs Vital Signs Temp Pulse Resp BP Pulse Ox 06/02/18 20:30 98.5 F 92 16 126/87 97 - Laboratory Lab Statement: Any lab studies that have been ordered have been reviewed, and results considered in the medical decision making process. Lower Extremity Course/Dx - Course Course Of Treatment: This patient is a 33 year old male presenting to [facility] accompanied by friend with a chief complaint of bilateral lower extremity pain since the past few days. Patient has a hx of neuropathy and lupus. Patient states this has been an ongoing problem, but it has been worse in the last few days. Patient goes to the pain clinic, which prescribed morphine to the patient , but patient was unable to receive the medicine because the pharmacy had run out and morphine was on backorder. Patient will be discharged with a dx of peripheral neuropathy and a prescription for oxycodone. Patient is advised to follow up with PCP in 3 days. The patient is agreeable with this plan. - Diagnoses Provider Diagnoses: Peripheral neuropathy Discharge - Sign-Out/Discharge Documenting (check all that apply): Patient Departure - Discharge Plan Condition: Stable Disposition: HOME Prescriptions: oxyCODONE TAB* [Roxycodone TAB 5 mg*] 10 mg PO Q4H PRN #10 tab MDD 6 tabs PRN Reason: Pain Patient Education Materials: Peripheral Neuropathy (ED) Referrals: Mirza Valentine DO [Primary Care Provider] - Additional Instructions: You can take the oxycodone until the morphine is in stock, that was prescribed by your pain provider - Attestation Statements Document Initiated by Scribe: Yes Documenting Scribe: Gina Barnes Provider For Whom Jelena is Documenting (Include Credential): Bennie Ochoa MD Scribe Attestation: Gina Ibrahim scribed for Bennie Ochoa MD on 06/02/18 at [id number]. Status of Scribe Document: Ready
[2018-06-02 21:54] VITALS: BP 121/72
== END 2018-06-02 21:49 | disposition home or self-care (01) ==
LOC: ED 20:30
DX: G62.9 Polyneuropathy, unspecified (principal); M32.9 Systemic lupus erythematosus, unspecified; Z88.5 Allergy status to narcotic agent; Z88.8 Allergy status to other drugs, medicaments and biological substances; Z87.891 Personal history of nicotine dependence
CPT/HCPCS: 99282; A9270-GY